=== PATIENT | female | born 1970 | race Caucasian/White ===

== ENCOUNTER 2021-02-07 18:04 | Emergency (ER) | payer OTHER, SELFPAY ==
--- NOTE | 2021-02-07 | ECG_ITS ---
Test Reason : REPEAT Blood Pressure : / mmHG Vent. Rate : 091 BPM Atrial Rate : 091 BPM P-R Int : 150 ms QRS Dur : 086 ms QT Int : 398 ms P-R-T Axes : 073 061 043 degrees QTc Int : 489 ms Normal sinus rhythm Prolonged QT Abnormal ECG When compared with ECG of 07-FEB-2021 19:02, Non-specific change in ST segment in Inferior leads ST no longer elevated in Lateral leads Nonspecific T wave abnormality has replaced inverted T waves in Inferior leads Referred By: Cesar Bill Electronically Signed By:CARMEN ALDRIDGE MD
--- NOTE | ~2021-02-07 | XR_ITS ---
EXAMINATION: XR CHEST CLINICAL INFORMATION: Chest pain COMPARISON: None TECHNIQUE: Frontal view of the chest was obtained. FINDINGS: The heart and pulmonary vessels appear normal. Scarring or atelectasis is present at the right lung base laterally. Linear atelectasis is present at the left lung base. In the posterior basal segment of the left lower lobe there is a patchy density seen with associated obscuration of the left hemidiaphragm which could represent a small focus of pneumonia. No pleural effusions are seen. Degenerative changes are present in the spine. XR/XR chest 1V IMPRESSION: Bibasilar atelectasis and more dense focus of infiltrate in the posterior basal segment left lower lobe.
[2021-02-07 18:19] VITALS: BP 100/50; BP 105/60; PULSE 88; PULSE 89; RESP 17; TEMP 36.4; O2SAT 100; O2SAT 99; BMI 29.5
--- NOTE | 2021-02-07 18:52 | ECG_ITS ---
Test Reason : CP Blood Pressure : / mmHG Vent. Rate : 089 BPM Atrial Rate : 089 BPM P-R Int : 116 ms QRS Dur : 084 ms QT Int : 404 ms P-R-T Axes : 025 026 001 degrees QTc Int : 491 ms Normal sinus rhythm Possible Left atrial enlargement ST & T wave abnormality, consider anterior ischemia Abnormal ECG No previous ECGs available Referred By: Cesar Bill Electronically Signed By:CARMEN ALDRIDGE MD
--- NOTE | 2021-02-07 18:54 | ED_ITS ---
HPI - General Adult General Chief complaint: General Medical Stated complaint: chest and knee pain Time Seen by Provider: 02/07/21 18:52 Source: patient and EMS Mode of arrival: EMS Limitations: no limitations History of Present Illness HPI narrative: 50-year-old female brought in by ambulance for multiple complaint s: Chest pain started since yesterday describes the pain as a tightness in the chest, pain started since yesterday morning, pain is almost constant, no radiation, described as a moderate 6/10, no other associated symptoms with this pain, nothing makes the pain worse or better. Patient also with history of multiple patient was at the rehab but she signed herself against medical advise, patient fell 2 weeks ago and has been complaining of left knee pain patient had an x-ray after the fall which showed no fracture. If you feel has been complaining of nonbloody watery diarrhea and patient had a chronic history of hypokalemia. Related Data Allergies Allergy/AdvReac Type Severity Reaction Status Date / Time cephalexin Allergy Swelling Verified 02/07/21 18:19 ciprofloxacin [From Cipro] Allergy Swelling Verified 02/07/21 18:19 duloxetine [From Cymbalta] Allergy Swelling Verified 02/07/21 18:19 Penicillins Allergy Swelling Verified 02/07/21 18:19 Review of Systems Review of Systems: All other systems are reviewed and are negative Constitutional: Reports as per HPI and Reports no additional constitutional complaints Eyes: Reports as per HPI and Reports no additional eye complaints Reports system reviewed and no additional complaints, except as documented Cardiovascular: Reports as per HPI and Reports no additional cardiovascular complaints Respiratory: Reports as per HPI and Reports no additional respiratory complaints Gastrointestinal: Reports as per HPI and Reports no additional gastrointestinal complaints Genitourinary: Reports no additional female genitourinary complaints Musculoskeletal: Reports no additional musculoskeletal complaints Skin/Breast: Reports system reviewed and no additional complaints, except as do cu Psychiatric: Reports no additional psychiatric complaints Endocrine: Reports no additional endocrine complaints Hematologic/Lymphatic: Reports no additional hematologic/lymphatic complaints Allergic/Immunologic: Reports no additional allergic/immunologic complaints Reports system reviewed and no additional complaints, except as documented and Reports Abnormal speech present PMFSH Past Medical History Medical History Afib Anxiety Arthritis Asthma Bipolar 1 disorder Bronchitis Complications of gastric bypass surgery Hypokalemia Hypotension Migraines PTSD (post-traumatic stress disorder) Surgical History H/O: History of cholecystectomy Social History Social History Alcohol intake: never Smoking Status: Never smoker Use of substances other than those prescribed or required for medical reasons: No Advance Directives: No Advance Directives Information Provided: No Physical Exam Vital Signs: Vital Signs: Last Vital Signs Temp 97.6 F 02/07/21 18:19 Pulse 89 02/07/21 18:19 Resp 17 02/07/21 18:19 BP 100/50 L 02/07/21 18:19 Pulse Ox 100 02/07/21 18:19 Body Mass Index 29.5 Vital signs have been reviewed as appeared to be correct. Blood pressure normal. Heart rate normal. Respiration rate normal. Temperature normal. Oxygen saturation normal. Appearance: Alert. Oriented X3. No acute distress. Head: Normal external exam. Normocephalic. Atraumatic. No Zuleta signs noted. No raccoon eyes noted Eyes: PERRLA. EOMI. Conjunctiva and sclera normal. Eyelids normal. ENT: TM's Normal. Pharynx normal. Uvula midline. Moist mucous membranes. No trismus noted. No drooling noted. No muffled voice noted. Neck: Normal inspection. Neck supple. FROM. No adenopathy. Thyroid Normal. No meningeal signs. No neck mass noted. CVS: Normal heart rate and rhythm. Heart sound normal. No murmurs noted. Pulses normal throughout. Respiratory: No respiratory distress. Painless inspiration. Breath sounds normal. No wheezes/rales/rhonchi noted. Chest nontender. No accessory muscle usage noted or decreased air movement noted. Abdomen: Soft and nontender. Bowel sounds normal in all 4 quadrants. No distention noted. No organomegaly noted. No visible injury noted. Back: No CVA tenderness. Full range of motion noted. Skin: Skin warm and dry. Normal skin color. Normal skin turgor. No rashes/lesions/lacerations noted. Extremities: No lower extremity edema. Extremities exhibit normal range of motion. Extremities nontender. Neuro: Oriented X 3. No motor deficit. No sensory deficit. Reflexes normal. Course Course Course Narrative: Assessment and plan. 50-year-old female came in with atypical chest pain since yesterday greater than 20 hours ago, patient had unremarkable cardiac enzymes, unremarkable labs. Multiple falls due to generalized weakness patient declined going to a rehab place. Chest x-ray read as possible small area of infiltrate in the left lower lung, patient's lung exam is clear, normal white count, patient declined symptoms of fever or coughing. Patient was instructed to follow-up with her PCP to repeat her x-ray. Medical Decision Making Lab Data Lab results reviewed: Yes I reviewed the patient's lab results. Result diagrams: 02/07/21 19:57 02/07/21 19:57 Labs: Lab Results 02/07/21 02/07/21 02/07/21 Range/Units 19:57 19:57 19:57 WBC 9.3 (4.8-10.8) X10*3/uL RBC 3.07 L (4.20-5.50) X10*6/uL Hgb 9.8 L (12.0-16.0) g/dl Hct 30.7 L (37-47) % MCV 100.0 H (80-98) fL MCH 31.9 (27.0-33.0) pg MCHC 31.9 (31.0-35.0) g/dl RDW 15.0 (11.0-16.0) % Plt Count 261 (160-400) X10*3/uL MPV 9.7 (9.4-12.3) fL Immature Gran % (Auto) 0.3 (0.0-0.4) % Neut % (Auto) 56.7 (45-73) % Lymph % (Auto) 34.9 (20-40) % [place] % (Auto) 6.6 (2-11) % Eos % (Auto) 1.3 (0-4) % Baso % (Auto) 0.2 (0-2) % Lymph # (Auto) 3.3 (1.2-4.9) X10*3/uL [place] # (Auto) 0.6 (0.1-1.2) X10*3/uL Eos # (Auto) 0.1 (0.0-0.4) X10*3/uL Baso # (Auto) 0.0 (0.0-0.2) X10*3/uL Abs Immat Gran (auto) 0.03 (0.00-0.03) X10*3/uL Absolute Neuts (auto) 5.3 (2.0-8.3) X10*3/uL Absolute Nucleated RBC 0.000 (0.0-0.012) X10*3/uL Nucleated RBC % (auto) 0.0 (0.0-0.2) /100WBC D-Dimer NG/ML Sodium 140 (135-145) mmol/L Potassium 3.9 (3.3-5.1) mmol/L Chloride 105 (96-108) mmol/L Carbon Dioxide 27 (22-29) mmol/L Anion Gap 12 (12-20) BUN 8 L (9-16) mg/dL Creatinine 0.77 (0.5-1.4) mg/dL Estim Creat Clear Calc 72.3 Estimated GFR > 60 Random Glucose 83 (60-115) mg/dL Calcium 8.2 L (8.4-10.2) mg/dL Total Bilirubin 0.8 (0.0-1.0) mg/dL Direct Bilirubin 0.6 H (0.0-0.5) mg/dL AST 41 H (5-31) U/L ALT 30 (0-31) U/L Alkaline Phosphatase 154 H (39-117) U/L Troponin I High Sens < 3.5 (<3.5-17.0) ng/L B-Natriuretic Peptide (<100) pg/mL Total Protein 5.4 L (6.5-8.0) g/dL Albumin 2.9 L (3.5-5.0) g/dL Lipase 10 (8-78) U/L 02/07/21 02/07/21 Range/Units 19:57 19:57 WBC (4.8-10.8) X10*3/uL RBC (4.20-5.50) X10*6/uL Hgb (12.0-16.0) g/dl Hct (37-47) % MCV (80-98) fL MCH (27.0-33.0) pg MCHC (31.0-35.0) g/dl RDW (11.0-16.0) % Plt Count (160-400) X10*3/uL MPV (9.4-12.3) fL Immature Gran % (Auto) (0.0-0.4) % Neut % (Auto) (45-73) % Lymph % (Auto) (20-40) % [place] % (Auto) (2-11) % Eos % (Auto) (0-4) % Baso % (Auto) (0-2) % Lymph # (Auto) (1.2-4.9) X10*3/uL [place] # (Auto) (0.1-1.2) X10*3/uL Eos # (Auto) (0.0-0.4) X10*3/uL Baso # (Auto) (0.0-0.2) X10*3/uL Abs Immat Gran (auto) (0.00-0.03) X10*3/uL Absolute Neuts (auto) (2.0-8.3) X10*3/uL Absolute Nucleated RBC (0.0-0.012) X10*3/uL Nucleated RBC % (auto) (0.0-0.2) /100WBC D-Dimer 239 NG/ML Sodium (135-145) mmol/L Potassium (3.3-5.1) mmol/L Chloride (96-108) mmol/L Carbon Dioxide (22-29) mmol/L Anion Gap (12-20) BUN (9-16) mg/dL Creatinine (0.5-1.4) mg/dL Estim Creat Clear Calc Estimated GFR Random Glucose (60-115) mg/dL Calcium (8.4-10.2) mg/dL Total Bilirubin (0.0-1.0) mg/dL Direct Bilirubin (0.0-0.5) mg/dL AST (5-31) U/L ALT (0-31) U/L Alkaline Phosphatase (39-117) U/L Troponin I High Sens (<3.5-17.0) ng/L B-Natriuretic Peptide 51 (<100) pg/mL Total Protein (6.5-8.0) g/dL Albumin (3.5-5.0) g/dL Lipase (8-78) U/L Imaging Data Chest x-ray: Radiologist's impression: The heart and pulmonary vessels appear normal. Scarring or atelectasis is present at the right lung base laterally. Linear atelectasis is present at the left lung base. In the posterior basal segment of the left lower lobe there is a patchy density seen with associated obscuration of the left hemidiaphragm which could represent a small focus of pneumonia. No pleural effusions are seen. Degenerative changes are present in the spine. ECG Data Interpretation: Normal sinus rhythm at 91 beats per minutes, normal axis deviation, normal intervals. Discharge Plan Discharge Clinical Impression: Chest pain Qualifiers: Chest pain type: unspecified Qualified Code(s): R07.9 - Chest pain, unspecified Patient Disposition: Home, Self-Care Instructions: Chest Pain (ED) Additional Instructions: Follow-up with your doctor at some point repeat chest x-ray as we discussed. Referrals: Physician,Unknown [Primary Care Provider] - 2 days
[2021-02-07] MEDS: traMADoL HCL 50 MG TABLET PO (20:02)
[2021-02-07 20:03] LABS: Basophils Percent Auto 0.2 % (0-2); Eosinophils Absolute Auto 0.1 X10*3/uL (0.0-0.4); Eosinophils Percent Auto 1.3 % (0-4); Hematocrit 30.7 % (37-47); Hemoglobin 9.8 g/dl (12.0-16.0); Imm Gran Abs Auto 0.03 X10*3/uL (0.00-0.03); Imm Gran Pct Auto 0.3 % (0.0-0.4); Lymphocytes Absolute Auto 3.3 X10*3/uL (1.2-4.9); Lymphocytes Percent Auto 34.9 % (20-40); MANUAL DIFF FLAG NO; Mean Corpuscular HGB Conc 31.9 g/dl (31.0-35.0); Mean Corpuscular Hemoglobin 31.9 pg (27.0-33.0); Mean Platelet Volume 9.7 fL (9.4-12.3); Monocytes Absolute Auto 0.6 X10*3/uL (0.1-1.2); Monocytes Percent Auto 6.6 % (2-11); Neutrophils Absolute Auto 5.3 X10*3/uL (2.0-8.3); Neutrophils Percent Auto 56.7 % (45-73); Platelet Count 261 X10*3/uL (160-400); Red Blood Count 3.07 X10*6/uL (4.20-5.50); White Blood Count 9.3 X10*3/uL (4.8-10.8)
[2021-02-07 20:14] LABS: D Dimer 239 NG/ML
[2021-02-07 20:29] LABS: Alanine Aminotransferase 30 U/L (0-31); Albumin Level 2.9 g/dL (3.5-5.0); Alkaline Phosphatase 154 U/L (39-117); Anion Gap 12 (12-20); Aspartate Amino Transferase 41 U/L (5-31); Bilirubin Direct 0.6 mg/dL (0.0-0.5); Bilirubin Total 0.8 mg/dL (0.0-1.0); Blood Urea Nitrogen 8 mg/dL (9-16); Calcium 8.2 mg/dL (8.4-10.2); Carbon Dioxide 27 mmol/L (22-29); Chloride 105 mmol/L (96-108); Creatinine Clr Calc Pharmacy 72.3; Estimated Glomerular Filt Rate > 60; Glucose Random 83 mg/dL (60-115); Lipase 10 U/L (8-78); Potassium 3.9 mmol/L (3.3-5.1); Sodium 140 mmol/L (135-145); Total Protein 5.4 g/dL (6.5-8.0)
[2021-02-07 20:36] LABS: Troponin-I High Sensitivity < 3.5 ng/L (<3.5-17.0)
[2021-02-07 20:37] LABS: B Type Natriuretic Peptide 51 pg/mL (<100)
--- NOTE | 2021-02-07 22:17 | PC.NURSE ---
Upon discharge, patient requesting CHRISTOPHER Kessler, states I can't walk. I'm supposed to get help at home, but I haven't gotten a motorized wheelchair yet. I fall practically every day of the year . 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 Pt states yeah I know, my insurance will pay for it though .
== END 2021-02-07 23:41 | disposition home or self-care (01) ==
PROVIDERS: Emergency Provider Emergency Medicine
DX: R07.9 Chest pain, unspecified (principal); M25.562 Pain in left knee; M25.561 Pain in right knee; Z79.899 Other long term (current) drug therapy
CPT/HCPCS: 36415; 71045; 80048; 80076; 83690; 83880; 84484; 85025; 85379; 93005; 99283; 99284

== ENCOUNTER 2022-10-10 09:44 | Emergency (ER) | payer OTHER, SELFPAY ==
[2022-10-10] VITALS (7 sets, daily range): BP systolic 88–112; BP diastolic 55–66; PULSE 72–94; RESP 11–18; TEMP 36.5–36.9; O2SAT 98–99
--- NOTE | ~2022-10-10 | XR_ITS ---
EXAMINATION: XR CHEST CLINICAL INFORMATION: Chest pain COMPARISON: 02/07/2021 TECHNIQUE: Frontal view of the chest was obtained. FINDINGS: There is scarring and atelectasis in the left lower lung with no change. Lungs otherwise are considered clear. Heart and pulmonary vessels are normal. No congestive change. XR/XR chest 1V IMPRESSION: No active disease.
--- NOTE | 2022-10-10 09:53 | ECG_ITS ---
Test Reason : CHEST PAIN Blood Pressure : / mmHG Vent. Rate : 082 BPM Atrial Rate : 082 BPM P-R Int : 152 ms QRS Dur : 074 ms QT Int : 392 ms P-R-T Axes : 059 044 038 degrees QTc Int : 457 ms Sinus rhythm with Premature atrial complexes Low voltage QRS Nonspecific ST abnormality Abnormal ECG When compared with ECG of 07-FEB-2021 19:46, Premature atrial complexes are now Present Nonspecific T wave abnormality has replaced inverted T waves in Anterior leads Referred By: Generic ED Physician Electronically Signed By:KANG PEREZ MD
--- OUTSIDE RECORDS SUMMARY | 2022-10-10 10:10 | XMS_ITS | Continuity of Care Document ---
:1970 Author Organization [facility] Address [address] [place] [address]- Care Team Providers Name Role Phone Eusebio Payton DO Primary Care Physician Encounter [facility] Date(s): 12/28/20 - 01/27/21 [facility] [address] [place] [address]- Attending Physician: Héctor Alfaro Admitting Physician: AdmtrHéctor Referring Physician: Admtr, Ar8 Allergies, Adverse Reactions, Alerts Substance Reaction Severity Status ciprofloxacin Active penicillin swell up can't swallow Active Keflex full body swelling hives Active Latex rash all over Active Other Food Allergy swell up Active coconut oil Cymbalta lips and face swell Active Medications albuterol-ipratropium 3 mg-0.5 mg/3 ml inhalation solution 3 mL, Inhalation, 4 times a day, # 360 mL, 11 Refills, Maintenance, 10/18/18 11:45:00 EST, Solution,ICD Code J45.20, 3 mL Inhalation 4 times a day Start Date: 10/18/18 Status: Orderedchantix 0.5mg tablet 1 tablet = 0.5 mg, By Mouth, 2 times a day, # 56 tablet, 0 Refills, Maintenance, 02/04/20 23:18:00 EDT, Tablet Start Date: 02/04/20 Status: OrderedclonazePAM 1 mg oral tablet TAKE 1 TABLET BY MOUTH THREE TIMES A DAY NEEDED Start Date: 06/07/19 Status: OrderedDulera 200 mcg-5 mcg/inh inhalation aerosol See Instructions, # 13 Unknown, Refills 1 Tot. Refills 1, INHALE 2 PUFFS BY MOUTH TWICE A DAY, [facility]/pharmacy #[id number] Start Date: 08/16/19 Status: OrderedhydrOXYzine pamoate 50 mg oral capsule TAKE 1 CAPSULE BY MOUTH TWICE A DAY Start Date: 06/07/19 Status: Orderedlamotrigine 150 mg oral tablet 1 tablet = 150 mg, By Mouth, 2 times a day, # 60 tablet, 0 Refills, Maintenance, 10/18/20 3:14:00 EST, Tablet, Partial fill upon patient request Start Date: 10/18/20 Status: OrderedLasix 20 mg oral tablet 20 mg, 1, tablet, By Mouth, Daily, # 7 tablet, Refills 0, Tot. Refills 0, Maintenance, 10/22/20 13:11:00 EST, Route to Pharmacy Electronically, [facility]/pharmacy #[id number], Partial fill upon patient request, 150, cm, 10/22/20 9:53:00 EST, Height, 82.4, kg, 11/... Start Date: 10/22/20 Stop Date: 10/29/20 Status: OrderedLexapro 20 mg oral tablet 1 tablet = 20 mg, By Mouth, Daily, # 30 tablet, 0 Refills, Maintenance, 04/16/20 0:52:00 EDT, Tablet Start Date: 04/16/20 Status: Orderedpotassium chloride 20 mEq oral tablet, extended release 1 tablet = 20 mEq, By Mouth, 2 times a day, # 14 tablet, 0 Refills, Maintenance, 12/01/20 5:34:00 EST, ER Tablet, [facility]/pharmacy #[id number], Partial fill upon patient request if the prescription is for a schedule II opioid drug., 173, cm, 12/01/20 3:52:00 ES... Start Date: 12/01/20 Stop Date: 12/08/20 Status: OrderedProAir HFA 90 mcg/inh inhalation aerosol with adapter 180 mcg, 2, puffs, Inhalation, 4 times a day, PRN, # 1 each, Refills 11, Tot. Refills 11, Maintenance, 04/09/18 16:09:00 EDT, Inhaler, Route to Pharmacy Electronically, [id number], [facility]/pharmacy #[id number], ICD Code J45.20 Start Date: 04/09/18 Status: OrderedSEROquel 200 mg oral tablet 200 mg, 1, tablet, By Mouth, 2 times a day, # 60 tablet, Refills 5, Tot. Refills 5, Maintenance, 12/29/17 15:09:37, Route to Pharmacy Electronically, [id number][id number] Start Date: 12/29/17 Stop Date: 06/27/18 Status: Orderedspironolactone 25 mg oral tablet 12.5 mg, 0.5, tablet, By Mouth, Daily, # 10 tablet, Refills 0, Tot. Refills 0, Maintenance, 216:54:00 EST, [id number] Partial fill upon patient requestif the prescription is for a schedule II opioid d... Start Date: 12/15/20 Status: Orderedtopiramate 50 mg oral tablet See Instructions, TAKE 1.5 TABLET BY MOUTH EVERYDAY AT BEDTIME, # 45 tablet, 6 Refills, 05/08/20 15:55:00 EDT, [facility], 152, cm, 04/16/20 5:09:00 EDT, Height, 100, kg, 04/16/20 5:09:00 EDT, Dry Weight Start Date: 05/08/20 Status: Ordered Problem List Condition Effective Dates Status Health Status Informant Asthma(Confirmed) Active Asthma with COPD(Confirmed) Active Depression(Confirmed) Active Fibromyalgia(Confirmed) Active GERD (gastroesophageal reflux Active disease)(Confirmed) PTSD (post-traumatic stress Active disorder)(Confirmed) Self mutilating behavior(Confirmed) Active Sleep apnea(Confirmed) Active Social History Social History Type Response Smoking Status Former smoker, quit more delmar n 30 days ago entered on: 10/01/20 Sex
--- OUTSIDE RECORDS SUMMARY | 2022-10-10 10:10 | XMS_ITS | Continuity of Care Document ---
:1970 Author Organization [facility] Address [address] [place] [address], 3rd Floor, [address] [place] [phone]- Care Team Providers Name Role Phone Eusebio Payton DO Primary Care Physician Encounter [facility] Date(s): 09/09/22 - 10/09/22 [facility] [address] [place], 3rd Floor, [address] [place] [id number] Allergies, Adverse Reactions, Alerts Substance Reaction Severity Status ciprofloxacin Active penicillin swell up can't swallow Active Keflex full body swelling hives Active Bee Stings Active Coconut Oil1 Active Latex rash all over Active Cymbalta lips and face swell Active 1pt reports her lips swelled after using coconut oil on them Immunizations Given and Recorded Vaccine Date Status Refusal Reason SARS-CoV-2 (COVID-19) mRNA-1273 vaccine 05/23/22 Recorded SARS-CoV-2 (COVID-19) mRNA-1273 vaccine 12/07/21 Recorded SARS-CoV-2 (COVID-19) mRNA-1273 vaccine 05/14/21 Recorded SARS-CoV-2 (COVID-19) mRNA-1273 vaccine 04/16/21 Recorded tetanus/diphtheria/pertussis, acel(Tdap) 09/26/09 Recorde d pneumococcal 23-valent vaccine 08/04/05 Recorded tetanus-diphtheria toxoids (Td) 06/13/04 Recorded hepatitis B adult vaccine 06/13/04 Recorded Medications atropine-diphenoxylate 0.025 mg-2.5 mg oral tablet 1, tablet, By Mouth, 4 times a day Start Date: 04/21/22 Status: Orderedcholestyramine 4 gm/9 gm oral powder for reconstitution 1 pack/packet, By Mouth, 3 times a day, # 90 each, 0 Refills, Maintenance, 09/27/22 12:42:00 EDT, REC Powder, Partial fill upon patient request if the prescription is for a schedule II opioid drug. Start Date: 09/27/22 Status: OrderedclonazePAM 1 mg oral tablet 1 tablet = 1 mg, By Mouth, 3 times a day, # 9 tablet, 0 Refills, Maintenance, 10/02/22 11:44:00 EST,Tablet, Partial fill upon patient request if the prescription is for a schedule II opioid drug. Start Date: 10/02/22 Stop Date: 10/05/22 Status: OrderedFluoxetine = 20 mg, By Mouth, Daily, 0 Refills, Maintenance, 05/04/21 17:40:00 EDT, Partial fill upon patient request if the prescription is for a schedule II opioid drug. Start Date: 05/04/21 Status: Orderedfluticasone 50 mcg/inh nasal spray SPRAY 1 SPRAY INTO EACH NOSTRIL EVERY DAY Start Date: 04/21/22 Status: Orderedlamotrigine 150 mg oral tablet 1 tablet = 150 mg, By Mouth, 2 times a day, # 60 tablet, 0 Refills, Maintenance, 10/18/20 3:14:00 EST, Tablet, Partial fill upon patient request Start Date: 10/18/20 Status: Orderedloperamide 2 mg oral capsule 2 mg, 1, capsule, By Mouth, Every 4 hours, PRN, # 60 capsule, Refills 0, Maintenance, for loose stool, 09/27/22 12:12:00 EDT, Partial fill upon patient request if the prescription is for a schedule II opioid drug. Start Date: 09/27/22 Status: Orderedmidodrine 5 mg oral tablet 5 mg, 1, tablet, By Mouth, 3 times a day, Refills 0, Maintenance, 09/27/22 12:12:00 EDT, Partial fill upon patient request if the prescription is for a schedule II opioid drug. Start Date: 09/27/22 Status: Orderedolanzapine 5 mg oral tablet TAKE 1/2-1 TABLET BY MOUTH ONCE DAILY AT BEDTIME NEEDED Start Date: 04/21/22 Status: Orderedomeprazole 40 mg oral enteric coated capsule 1 capsule = 40 mg, By Mouth, Daily, # 30 capsule, 0 Refills, Maintenance, 09/27/22 12:12:00 EDT, EC Capsule, Partial fill upon patient request if the prescription is for a schedule II opioid drug. Start Date: 09/27/22 Status: Orderedondansetron 4 mg oral tablet 1 tablet = 4 mg, By Mouth, Every 8 hours, PRN Nausea, . Start Date: 04/21/22 Status: OrderedProAir HFA 90 mcg/inh inhalation aerosol with adapter 180 mcg, 2, puffs, Inhalation, 4 times a day, PRN, # 1 each, Refills 11, Tot. Refills 11, Maintenance, 04/09/18 16:09:00 EDT, Inhaler, Route to Pharmacy Electronically, [id number], [facility]/pharmacy #[id number], ICD Code J45.20 Start Date: 04/09/18 Status: OrderedProbiotic Formula (Bacillus Coagulans) oral capsule 1 capsule, By Mouth, Daily, # 30 capsule, 0 Refills, Maintenance, 09/27/22 12:45:00 EDT, Capsule, Partial fill upon patient request if the prescription is for a schedule II opioid drug. Start Date: 09/27/22 Status: OrderedrisperiDONE 2 mg oral tablet TAKE 1/2 TABLET BY MOUTH EVERY MORNING AND 1 TABLET AT BEDTIME Start Date: 09/27/22 Status: Orderedsucralfate 1 gm/10 ml oral suspension 10 mL = 1 Gm, By Mouth, 4 times a day, 0 Refills, Maintenance, 09/27/22 12:48:00 EDT, Partial fill upon patient request if the prescription is for a schedule II opioid drug. Start Date: 09/27/22 Status: Orderedthiamine 100 mg oral tablet 100 mg, 1, tablet, By Mouth, Daily, Refills 0, Maintenance, 05/02/22 11:01:00 EDT, Partial fill uponpatient request if the prescription is for a schedule II opioid drug. Start Date: 05/02/22 Status: Orderedtopiramate 50 mg oral tablet See Instructions, Take 1/2 tablet in the AM and 2 1/2 tablet at bedtime, # 90 tablet, 11 Refills, 06/12/22 13:04:00 EDT, [facility]/pharmacy #[id number], please refill early, 154, cm, 04/21/22 10:23:00 EDT, Height,58, kg, 04/21/22 10:23:00 EDT, Dry Weight Start Date: 06/12/22 Status: OrderedVitamin B12 500 mcg oral tablet 1 tablet = 500 mcg, By Mouth, Daily, # 30 tablet, 0 Refills, Maintenance, 09/27/22 12:45:00 EDT, Tablet, Partial fill upon patient request if the prescription is for a schedule II opioid drug. Start Date: 09/27/22 Status: OrderedVitamin C 250 mg oral tablet 1 tablet = 250 mg, By Mouth, Daily, 0 Refills, Maintenance, 05/03/21 16:57:00 EDT, Partial fill uponpatient request if the prescription is for a schedule II opioid drug. Start Date: 05/03/21 Status: OrderedVitamin D3 50,000 intl units oral capsule 1 capsule = 1,250 mcg, By Mouth, Every Thursday Start Date: 04/21/22 Status: OrderedWixela Inhub 500 mcg-50 mcg inhalation powder 1 inhalation, Inhalation, 2 times a day, rinse mouth and throat after use, 0 Refills, Maintenance, 04/21/22 18:19:00 EDT, Powder, Partial fill upon patient request if the prescription is for a scheduleII opioid drug. Start Date: 04/21/22 Status: OrderedXarelto 20 mg oral tablet 1 tablet = 20 mg, By Mouth, Daily in PM, # 30 tablet, 0 Refills, Maintenance, 09/27/22 12:12:00 EDT,Tablet, Partial fill upon patient request if the prescription is for a schedule II opioid drug. Start Date: 09/27/22 Status: Ordered Problem List Condition Confirmation Course Effective Dates Status Health Stat us Informant Asthma Confirmed Active Asthma with COPD Confirmed Active Depression Confirmed Active Fibromyalgia Confirmed Active GERD Confirmed Active (gastroesophageal reflux disease) PTSD Confirmed Active (post-traumatic stress disorder) Self mutilating Confirmed Active behavior Sleep apnea Confirmed Active Social History Social History Type Response Smoking Status Former smoker, quit more delmar n 30 days ago entered on: 10/01/20 Sex Patient Care team information Care Team PersonnelName: Elif Roldan RN Position: [facility] RN Member Role: Primary Care Nurse Name: Jean-Claude Horvath Position: [facility] [place]io[place]m [place] Member Role: Primary Care Nurse Name: Madison Calderon RN Position: [facility] RN Member Role: Primary Care Nurse Name: Suly Galvan RN Position: [facility] RN Member Role: Primary Care Nurse Name: Kassi Sosa Position: [facility] RN Member Role: Primary Care Nurse Name: Bindu Loja Position: [facility] RN Member Role: Primary Care Nurse Name: Radha Baptiste RN Position: [facility] RN Member Role: Primary Care Nurse Name: Kilo Olmos RN Position: [facility] RN Member Role: Primary Care Nurse Name: Cristina Randle RN Position: [facility] RN Member Role: Primary Care Nurse Name: Eusebio Payton DO Position: [facility] Physician (General Medicine) Member Role: PCP Address: Address: [address] [place] [address] [address] [place], [place] [address] Name: Nilda Jimenez RN Position: [facility] RN Member Role: Primary Care Nurse Name: Awa Langford RN Position: [facility] RN Member Role: Primary Care Nurse Name: Sharmaine Goodwin RN Position: [facility] RN Member Role: Primary Care Nurse Care Team Related PersonsName: RAMONA FLORES Address: home [address] [place] [address] Name: MONICA FLORES Address: home [address] [place] [address] Name: MYRIAM FLORES Address: home [address] [place] [address] Name: ELSIE FLORES Address: home [place], [place] Name: JUNI FLORES Address: home [address] [place] [address]
--- OUTSIDE RECORDS SUMMARY | 2022-10-10 10:11 | XMS_ITS | Continuity of Care Document ---
:1970 Author Organization [facility] Address [address] [place], 3rd Floor, [address] [place] [address]- Care Team Providers Name Role Phone Eusebio Payton DO Primary Care Physician Encounter [facility] Date(s): 05/11/20 - 09/08/20 [facility] [address] [place], [address] Floor, [address] [place] [address]- [facility] Attending Physician: Torito Villagomez MD Referring Physician: Eusebio Payton DO Allergies, Adverse Reactions, Alerts Substance Reaction Severity [...] DAY NEEDED Start Date: 06/07/19 Status: OrderedDulera Inhalation, 2 times a day, 0 Refills, Maintenance, 04/16/20 0:51:00 EDT Start Date: 04/16/20 Status: OrderedDulera 200 mcg-5 mcg/inh inhalation aerosol See Instructions, # 13 Unknown, Refills 1 Tot. Refills 1, INHALE 2 PUFFS BY MOUTH TWICE A DAY, [facility]/pharmacy #[id number] Start Date: 08/16/19 Status: OrderedFlovent Diskus Inhalation, 2 times a day, 0 Refills, Maintenance, 04/16/20 0:51:00 EDT Start Date: 04/16/20 Status: OrderedhydrOXYzine pamoate 50 mg oral capsule TAKE 1 CAPSULE BY MOUTH TWICE A DAY Start Date: 06/07/19 Status: Orderedlamotrigine 50 mg oral tablet, disintegrating 1 tablet = 50 mg, By Mouth, 2 times a day, 0 Refills, Maintenance, 06/26/19 17:18:38 EDT Start Date: 06/26/19 Status: OrderedLexapro 20 mg oral tablet 1 tablet = 20 mg, By Mouth, Daily, # 30 tablet, 0 Refills, Maintenance, 04/16/20 0:52:00 EDT, Tablet Start Date: 04/16/20 Status: Orderednaltrexone 50 mg oral tablet 0 Refills, Maintenance, 01/19/20 14:01:00 EST Start Date: 01/19/20 Status: OrderedOmeprazole By Mouth, Daily, 0 Refills, Maintenance, 04/16/20 0:52:00 EDT Start Date: 04/16/20 Status: OrderedProAir HFA 90 mcg/inh inhalation aerosol with adapter 180 mcg, 2, puffs, Inhalation, 4 times a day, PRN, # 1 each, Refills 11, Tot. Refills 11, Maintenance, 04/09/18 16:09:00 EDT, Inhaler, Route to Pharmacy Electronically, [id number], [facility]/pharmacy #[id number], ICD Code J45.20 Start Date: 04/09/18 Status: OrderedSEROquel 200 mg oral tablet 200 mg, 1, tablet, By Mouth, 2 times a day, # 60 tablet, Refills 5, Tot. Refills 5, Maintenance, 12/29/17 15:09:37, Route to Pharmacy Electronically, [id number], [facility]/pharmacy #[id number] Start Date: 12/29/17 Stop Date: 06/27/18 Status: Orderedsertraline 100 mg oral tablet 1 tablet = 100 mg, By Mouth, Daily, # 30 tablet, 0 Refills, Maintenance, 06/26/19 17:17:27 EDT, Tablet Start Date: 06/26/19 Status: Orderedtopiramate 50 mg oral tablet See Instructions, TAKE 1.5 TABLET BY MOUTH EVERYDAY AT BEDTIME, # 45 tablet, 6 Refills, 05/08/20 15:55:00 EDT, [facility], 152, cm, 04/16/20 5:09:00 EDT, Height, [...] delmar n 30 days ago entered on: 05/14/20 Sex
--- OUTSIDE RECORDS SUMMARY | 2022-10-10 10:11 | XMS_ITS | Continuity of Care Document ---
:1970 Author Organization [facility] Address [address] [place] [address]- Care Team Providers Name Role Phone Eusebio Payton DO Primary Care Physician Encounter [facility] Date(s): 12/23/20 - 12/27/[address] [address]- Discharge Disposition: A-D/C Home Attending Physician: Kali Bynum DO Admitting Physician: Jose Alberto Stevens DO Referring Physician: Janet Solomon MD Allergies, Adverse Reactions, Alerts Substance Reaction Severity [...] 2 PUFFS BY MOUTH TWICE A DAY, [facility]/pharmacy #[id number] Start Date: 08/16/19 Status: OrderedhydrOXYzine pamoate 50 [...] 10/22/20 13:11:00 EST, Route to Pharmacy Electronically, [facility]/pharmacy #[id number], Partial fill upon patient request, 150, cm, 10/22/20 9:53:00 EST, Height, 82.4, kg, ... Start Date: 10/22/20 Stop Date: 10/29/20 Status: [...] Refills, Maintenance, 12/01/20 5:34:00 EST, ER Tablet, [facility]/pharmacy #[id number], Partial fill upon patient request if the prescription is for a schedule II opioid drug., 173, cm, 12/01/20 3:52:00 ES... Start Date: 12/01/20 Stop Date: 12/08/20 Status: OrderedProAir HFA 90 mcg/inh inhalation aerosol with adapter 180 mcg, 2, puffs, Inhalation, 4 times a day, PRN, # 1 each, Refills 11, Tot. Refills 11, Maintenance, 04/09/18 16:09:00 EDT, Inhaler, Route to Pharmacy Electronically, [id number], [facility]/pharmacy #[id number], ICD Code J45.20 Start Date: 04/09/18 Status: OrderedSEROquel 200 mg oral tablet 200 mg, 1, tablet, By Mouth, 2 times a day, # 60 tablet, Refills 5, Tot. Refills 5, Maintenance, 12/29/17 15:09:37, Route to Pharmacy Electronically, [id number], [facility]/pharmacy #[id number] Start Date: 12/29/17 Stop Date: 06/27/18 Status: Orderedspironolactone 25 mg oral tablet 12.5 mg, 0.5, tablet, By Mouth, Daily, # 10 tablet, Refills 0, Tot. Refills 0, Maintenance, 216:54:00 EST, [id number] Partial fill upon patient requestif the prescription is for a schedule II opioid d... Start Date: 12/15/20 Status: Orderedtopiramate 50 mg oral tablet See Instructions, TAKE 1.5 TABLET BY MOUTH EVERYDAY AT BEDTIME, # 45 tablet, 6 Refills, 05/08/20 15:55:00 EDT, [facility], 152, cm, 04/16/20 5:09:00 EDT, Height, 100, kg, 04/16/20 5:09:00 EDT, Dry Weight Start Date: 05/08/20 Status: Ordered Problem List Condition Effective Dates Status Health Status Informant Asthma(Confirmed) Active Asthma with COPD(Confirmed) Active Depression(Confirmed) Active Fibromyalgia(Confirmed) Active GERD (gastroesophageal reflux Active disease)(Confirmed) PTSD (post-traumatic stress Active disorder)(Confirmed) Self mutilating behavior(Confirmed) Active Sleep apnea(Confirmed) Active Vital Signs Most recent to oldest 1 2 3 [Reference Range]: Height 151 cm 151 cm 151 cm (12/27/20 10:51 AM) (12/27/20 5:13 AM) (12/26/20 8:42 PM) Weight 75.2 kg 80 kg 80 kg (12/24/20 12:18 AM) (12/23/20 11:04 PM) (12/23/20 8: 26 PM) Oxygen Saturation [94-100 %] 98 % 95 % 98 % (12/27/20 10:51 AM) (12/27/20 5:13 AM) (12/26/20 8:42 PM) Pulse Rate [55-90 bpm] 101 bpm 87 bpm 91 bpm *H* (12/27/20 5:13 AM) *H* (12/27/20 10:51 AM) (12/26/20 8:42 P M) Body Mass Index [18.5-24.99] 32.98 35.09 35. 09 *>HHI* *>HHI* *>HHI* (12/24/20 12:18 AM) (12/23/20 11:04 PM) (12/23/20 8: 26 PM) Blood Pressure [90-138/55-84 105/69 mm Hg 108/74 mm Hg 106 /73 mm Hg mm Hg] (12/27/20 10:51 AM) (12/27/20 5:13 AM) (12/26/20 8:42 PM) Respiratory Rate [16-30 18 br/min 22 br/min 20 br/mi n br/min] (12/27/20 10:51 AM) (12/27/20 5:13 AM) (12/26/20 8:42 PM) Temperature [96.8-100.4 DegF] 97.7 DegF 98.5 DegF 98 .0 DegF (12/27/20 10:51 AM) (12/27/20 5:13 AM) (12/26/20 8:42 PM) Mode of Delivery (Oxygen) Room air Room air Room a ir (12/27/20 10:51 AM) (12/27/20 5:13 AM) (12/26/20 8:42 PM) Blood pressure sites Arm, right Arm, right Arm, right (12/27/20 10:51 AM) (12/27/20 5:13 AM) (12/26/20 8:42 PM) Temperature Route Oral Oral Oral (12/27/20 10:51 AM) (12/27/20 5:13 AM) (12/26/20 8:42 PM) Dry Weight 75.2 kg 80 kg 80 kg (12/24/20 12:18 AM) (12/23/20 11:04 PM) (12/23/20 8: 26 PM) Weight Obtained Via Bed scale (12/24/20 12:18 AM) Dry Weight Obtained Via Bed scale (12/24/20 12:18 AM) Social History Social History Type Response Smoking Status Former smoker, quit more delmar n 30 days ago entered on: 10/01/20 Sex
--- OUTSIDE RECORDS SUMMARY | 2022-10-10 10:11 | XMS_ITS | Continuity of Care Document ---
:1970 Author Organization [facility] Address [address] [place] [address], 3[address] Floor, [address] [place] [id number]- Care Team Providers Name Role Phone Eusebio Payton DO Primary Care Physician Encounter [facility] Date(s): 09/09/22 - 10/09/22 [facility] [address], 3rd Floor, [address] [place] [address] Allergies, Adverse Reactions, Alerts Substance Reaction Severity Status ciprofloxacin Active penicillin swell up can't swallow Active Keflex full body swelling hives Active Bee Stings Active Coconut Oil1 Active Cymbalta lips and face swell Active Latex rash all over Active 1pt reports her lips swelled after [...] 16:09:00 EDT, Inhaler, Route to Pharmacy Electronically, [id number], [facility]/pharmacy #[id number], ICD Code J45.20 Start Date: 04/09/18 [...] 90 tablet, 11 Refills, 06/12/22 13:04:00 EDT, [facility]/pharmacy #[id number], please refill early, 154, cm, 04/21/22 [...] Care Team PersonnelName: Elif Roldan RN Position: [facility] RN Member Role: Primary Care Nurse Name: Jean-Claude Horvath Position: [facility] Cardio/Pulm Mgr ([facility]) Member Role: Primary Care Nurse Name: Madison Calderon RN Position: [facility] RN Member Role: Primary Care Nurse Name: Suly Galvan RN Position: [facility] RN Member Role: Primary Care Nurse Name: Kassi Sosa Position: [facility] RN Member Role: Primary Care Nurse Name: Bindu Loja Position: [facility] RN Member Role: Primary Care Nurse Name: Radha Baptiste RN Position: [facility] RN Member Role: Primary Care Nurse Name: Kilo Olmos RN Position: [facility] RN Member Role: Primary Care Nurse Name: Cristina Randle RN Position: [facility] RN Member Role: Primary Care Nurse Name: Eusebio Payton DO Position: [facility] Physician (General Medicine) Member Role: PCP Address: Address: [address] [place] [address] [address] [place], [place] [address] Name: Nilda Jimenez RN Position: [facility] RN Member Role: Primary Care Nurse Name: Awa Langford RN Position: [facility] RN Member Role: Primary Care Nurse Name: Sharmaine Goodwin RN Position: [facility] RN Member Role: Primary Care Nurse Care Team Related PersonsName: RAMONA FLORES Address: home [address] [place] [address] Name: MONICA FLORES Address: home [address] [place] [address] Name: MYRIAM FLORES Address: home [address] [place] [address] Name: ELSIE FLORES Address: home [place], [place] Name: JUNI FLORES Address: home [address] [place] [address]
--- OUTSIDE RECORDS SUMMARY | 2022-10-10 10:11 | XMS_ITS | Continuity of Care Document ---
:1970 Author Organization [facility] Address [address] [facility], 3rd Floor, [address] [place] [id number]- Care Team Providers Name Role Phone Eusebio Payton DO Primary Care Physician Encounter [facility] Date(s): 08/09/20 - 09/08/20 [facility] [address] [place], [address] Floor, [address] [place] [id number] [facility] Attending Physician: Héctor Alfaro Admitting Physician: AdmtrHéctor Referring Physician: Admtr, Ar8 Allergies, Adverse Reactions, Alerts Substance Reaction Severity Status ciprofloxacin Active penicillin swell up can't swallow Active Keflex full body swelling hives Active Latex rash all over Active Cymbalta lips and face swell Active Other Food Allergy swell up Active coconut oil Medications albuterol-ipratropium 3 mg-0.5 mg/3 ml inhalation [...] MOUTH TWICE A DAY, [facility]/pharmacy #[id number] Start Date: 08/16/19 Status: OrderedFlovent Diskus [...] 16:09:00 EDT, Inhaler, Route to Pharmacy Electronically, [id number], [facility]/pharmacy #[id number], ICD Code J45.20 Start Date: 04/09/18 Status: OrderedSEROquel 200 mg oral tablet 200 mg, 1, tablet, By Mouth, 2 times a day, # 60 tablet, Refills 5, Tot. Refills 5, Maintenance, 12/29/17 15:09:37, Route to Pharmacy Electronically, [id number], [facility]/pharmacy #[id number] Start Date: 12/29/17 Stop Date: 06/27/18 Status: Orderedsertraline 100 mg oral tablet 1 tablet = 100 mg, By Mouth, Daily, # 30 tablet, 0 Refills, Maintenance, 06/26/19 17:17:27 EDT, Tablet Start Date: 06/26/19 Status: Orderedtopiramate 50 mg oral tablet See Instructions, TAKE 1.5 TABLET BY MOUTH EVERYDAY AT BEDTIME, # 45 tablet, 6 Refills, 05/08/20 15:55:00 EDT, [facility], 152, cm, 04/16/20 5:09:00 EDT, Height, [...]
--- OUTSIDE RECORDS SUMMARY | 2022-10-10 10:11 | XMS_ITS | Continuity of Care Document ---
:1970 Author Organization [facility] Address [address] [place] [phone]- Care Team Providers Name Role Phone Eusebio Payton DO Primary Care Physician [place] [facility] [place] 05/02/[address] [address] Discharge Disposition: A-Transfer SNF Attending Physician: Cait Danielson MD Admitting Physician: Cristine Rincon MD Referring Physician: Not on Staff, Referring MD Allergies, Adverse Reactions, Alerts Substance Reaction Severity Status ciprofloxacin Active penicillin swell up can't swallow Active Keflex full body swelling hives Active Latex rash all over Active Other Food Allergy swell up Active coconut oil Cymbalta lips and face swell Active Immunizations Given and Recorded Vaccine Date Status Refusal Reason SARS-CoV-2 (COVID-19) mRNA-1273 vaccine 12/07/21 Recorded SARS-CoV-2 (COVID-19) mRNA-1273 vaccine 05/14/21 Recorded SARS-CoV-2 (COVID-19) mRNA-1273 vaccine 04/16/21 Recorded tetanus/diphtheria/pertussis, acel(Tdap) 09/26/09 Recorde d pneumococcal 23-valent vaccine 08/04/05 Recorded tetanus-diphtheria toxoids (Td) 06/13/04 Recorded hepatitis B adult vaccine 06/13/04 Recorded Medications acetaminophen 325 mg oral tablet 975 mg, Tablet, By Mouth, Every 8 hours, PRN for Pain , Mild, Routine, 04/24/22 11:57:00 EDT Start Date: 04/24/22 Stop Date: 05/03/22 Status: Discontinuedacetaminophen 325 mg oral tablet 975 mg, 3, tablet, By Mouth, Every 8 hours, PRN, Refills 0, Maintenance, Pain , Mild, 05/02/22 11:01:00 EDT, Partial fill upon patient request if the prescription is for a schedule II opioid drug. Start Date: 05/02/22 Status: Orderedalbuterol-ipratropium 3 mg-0.5 mg/3 ml inhalation solution 3 mL, Inhalation, 4 times a day, # 360 mL, 11 Refills, Maintenance, 10/18/18 11:45:00 EST, Solution,ICD Code J45.20, 3 mL Inhalation 4 times a day Start Date: 10/18/18 Status: Orderedatropine-diphenoxylate 0.025 mg-2.5 mg oral tablet TAKE 2 TABLETS BY MOUTH 4 TIMES DAILY. Start Date: 04/21/22 Status: OrderedclonazePAM 1 mg oral tablet TAKE 1 TABLET BY MOUTH THREE TIMES A DAY NEEDED Start Date: 06/07/19 Status: OrderedEnoxaparin 0.4 mL = 40 mg, Subcutaneous Injection, Daily, 0 Refills, Maintenance, 05/02/22 11:02:00 EDT, Injection, Partial fill upon patient request if the prescription is for a schedule II opioid drug. Start Date: 05/02/22 Stop Date: 05/20/22 Status: OrderedFluoxetine = 20 mg, By Mouth, Daily, 0 Refills, Maintenance, 05/04/21 17:40:00 EDT, Partial fill upon patient request if the prescription is for a schedule II opioid drug. Start Date: 05/04/21 Status: Orderedfluticasone 50 mcg/inh nasal spray SPRAY 1 SPRAY INTO EACH NOSTRIL EVERY DAY Start Date: 04/21/22 Status: OrderedhydrOXYzine hydrochloride 25 mg oral tablet TAKE 1 TABLET BY MOUTH 3 TIMES A DAY NEEDED *TAKE PRIOR TO NEEDED CLONAZEPAM* Start Date: 04/21/22 Status: Orderedlamotrigine 150 mg oral tablet 1 tablet = 150 mg, By Mouth, 2 times a day, # 60 tablet, 0 Refills, Maintenance, 10/18/20 3:14:00 EST, Tablet, Partial fill upon patient request Start Date: 10/18/20 Status: Orderedolanzapine 5 mg oral tablet TAKE 1/2-1 TABLET BY MOUTH ONCE DAILY AT BEDTIME NEEDED Start Date: 04/21/22 Status: Orderedondansetron 4 mg oral tablet TAKE 1 TABLET BY MOUTH EVERY 8 HOURS NEEDED FOR NAUSEA FOR UP TO 7 DAYS. Start Date: 04/21/22 Status: OrderedoxyCODONE 5 mg oral tablet 5 mg, 1, tablet, By Mouth, Every 4 hours, PRN, Refills 0, Tot. Refills 0, Maintenance, Pain , Moderate, 05/02/22 11:01:00 EDT, Partial fill upon patient request if the prescription is for a schedule IIopioid drug. Start Date: 05/02/22 Status: Orderedpantoprazole 20 mg oral delayed release tablet TAKE 1 TABLET BY MOUTH TWICE A DAY Start Date: 04/21/22 Status: OrderedProAir HFA 90 mcg/inh inhalation aerosol with adapter 180 mcg, 2, puffs, Inhalation, 4 times a day, PRN, # 1 each, Refills 11, Tot. Refills 11, Maintenance, 04/09/18 16:09:00 EDT, Inhaler, Route to Pharmacy Electronically, [id number], [facility]/pharmacy #[id number], ICD Code J45.20 Start Date: 04/09/18 Status: Orderedright carpal tunnel wrist splint right carpal tunnel wrist splint, See Instructions, # 1 kit, Refills 0, Tot. Refills 0, Maintenance,rotate on/off every 2 hours while awake. Pt may benefit from delivery service. Diagnosis right CTS, 02/20/22 15:14:00 EDT, Supply Start Date: 02/20/22 Status: OrderedrisperiDONE 0.5 mg oral tablet TAKE 1 TABLET BY MOUTH TWICE A DAY NEEDED Start Date: 04/21/22 Status: Orderedthiamine 100 mg oral tablet 100 mg, 1, tablet, By Mouth, Daily, Refills 0, Maintenance, 05/02/22 11:01:00 EDT, Partial fill uponpatient request if the prescription is for a schedule II opioid drug. Start Date: 05/02/22 Status: Orderedtopiramate 50 mg oral tablet See Instructions, Take 1/2 tablet in the AM and 2 1/2 tablet at bedtime, # 90 tablet, 11 Refills, 01/01/22 16:54:00 EST, [id number], please refill early, 150, cm, 06/07/21 15:59:00 EDT, Height,61, kg, 05/03/21 7:53:00 EDT, Dry Weight Start Date: 01/01/22 Status: OrderedVitamin C 250 mg oral tablet 1 tablet = 250 mg, By Mouth, Daily, 0 Refills, Maintenance, 05/03/21 16:57:00 EDT, Partial fill uponpatient request if the prescription is for a schedule II opioid drug. Start Date: 05/03/21 Status: OrderedVitamin D3 50,000 intl units oral capsule TAKE 1 CAPSULE BY MOUTH ONE TIME PER WEEK Start Date: 04/21/22 Status: OrderedWixela Inhub 500 mcg-50 mcg inhalation powder 1 inhalation, Inhalation, 2 times a day, rinse mouth and throat after use, 0 Refills, Maintenance, 04/21/22 18:19:00 EDT, Powder, Partial fill upon patient request if the prescription is for a scheduleII opioid drug. Start Date: 04/21/22 Status: Ordered Problem List Condition Effective Dates Status Health Status Informant Asthma(Confirmed) Active Asthma with COPD(Confirmed) Active Depression(Confirmed) Active Fibromyalgia(Confirmed) Active GERD (gastroesophageal reflux Active disease)(Confirmed) PTSD (post-traumatic stress Active disorder)(Confirmed) Self mutilating behavior(Confirmed) Active Sleep apnea(Confirmed) Active Procedures Procedure Date Related Diagnosis Body Site Status Treatment of intertrochanteric, 04/22/22 Completed peritrochanteric, or subtrochanteric femoral fracture; with intramedullary implant, with or without interlocking screws and/or cerclage1 1[facility] InterTAN, 10 mm x 18 cm, 125 degree tori, with 80/75 mm integrated lag screw, and 30 mm distal interlocking screw. Results Radiology Reports Exam Date Time Procedure Performing Provider Status 04/22/22 4:25 PM C-Arm < 1 Hour Casey Kline; Auth (Verified) Notes:(C-Arm < 1 Hour) Reason For Exam: lt hip rodRESULT: C-Arm < 1 Hour Femur 2 Views Left, C-Arm < 1 Hour INDICATION: Reason: lt hip tori COMPARISONS: None TECHNIQUE: Fluoroscopy support was provided. There was no radiologist in attendance. FLUOROSCOPY TIME: 28 seconds EXPOSURE: 7.51 mGy TECHNOLOGIST TIME: 40 minutes FINDINGS: 5 fluoroscopic images submitted during ORIF left femur. Please refer to operative report for complete findings and narrative IMPRESSION: See above. WSN: [id number] Ordering Physician: Corey Hinkle MD Dictated By: Brendon Garcia MD Dictated Date/Time: 04/22/22 7:18 pm Reviewed By: Brendon Garcia MD Signed By: Brendon Garcia MD Signed Date/Time: 04/22/22 7:18 pm Transcribed By: DARRYL Transcribed Date/Time: 04/22/22 7:18 pm Exam Date Time Procedure Performing Provider Status 04/22/22 4:25 PM XR Femur 2 Views Left Casey Kline; Danny (Veri fied) Notes:(XR Femur 2 Views Left) Reason For Exam: lt hip rodRESULT: Femur 2 Views Left Femur 2 Views Left, C-Arm < 1 Hour INDICATION: Reason: lt hip tori COMPARISONS: None TECHNIQUE: Fluoroscopy support was provided. There was no radiologist in attendance. FLUOROSCOPY TIME: 28 seconds EXPOSURE: 7.51 mGy TECHNOLOGIST TIME: 40 minutes FINDINGS: 5 fluoroscopic images submitted during ORIF left femur. Please refer to operative report for complete findings and narrative IMPRESSION: See above. WSN: [id number] Ordering Physician: Corey Hinkle MD Dictated By: Brendon Garcia MD Dictated Date/Time: 04/22/22 7:18 pm Reviewed By: Brendon Garcia MD Signed By: Brendon Garcia MD Signed Date/Time: 04/22/22 7:18 pm Transcribed By: DARRYL Transcribed Date/Time: 04/22/22 7:18 pm Vital Signs Most recent to oldest 1 2 3 [Reference Range]: Oxygen Saturation [94-100 %] 97 % 100 % 98 % (05/02/22 7:21 AM) (05/02/22 4:19 AM) (05/01/22 7:39 PM) Pulse Rate [55-90 bpm] 66 bpm 64 bpm 108 bpm (05/02/22 7:21 AM) (05/02/22 4:19 AM) *H* (05/01/22 7:39 PM) Blood Pressure [90-138/55-84 mm 105/73 mm Hg 104/68 mm Hg 109/62 mm Hg Hg] (05/02/22 7:21 AM) (05/02/22 4:19 AM) (05/01/22 7:39 PM) Respiratory Rate [16-30 br/min] 20 br/min 16 br/min 20 br/min (05/02/22 9:17 AM) (05/02/22 7:21 AM) (05/02/22 4:1 9 AM) Temperature [96.8-100.4 DegF] 98.3 DegF 98.1 DegF 98 .1 DegF (05/02/22 7:21 AM) (05/02/22 4:19 AM) (05/01/22 7:39 PM) Liters per Minute 6 L/min (04/22/22 5:00 PM) Mode of Delivery (Oxygen) Room air Room air Room a ir (05/02/22 7:21 AM) (05/02/22 4:19 AM) (05/01/22 7:39 PM) Blood pressure sites Arm, left Arm, left Arm, left (05/02/22 7:21 AM) (05/02/22 4:19 AM) (05/01/22 7:39 PM) Temperature Route Oral Oral Oral (05/02/22 7:21 AM) (05/02/22 4:19 AM) (05/01/22 7:39 PM) Social History Social History Type Response Smoking Status Former smoker, quit more delmar n 30 days ago entered on: 10/01/20 Sex
--- OUTSIDE RECORDS SUMMARY | 2022-10-10 10:11 | XMS_ITS | Continuity of Care Document ---
:1970 Author Organization [facility] Address [address] [place] [address]- Care Team Providers Name Role Phone Eusebio Payton DO Primary Care Physician Encounter [facility] Date(s): 12/20/20 - 01/19/21 [facility] [place] [address] [place] [address]- Allergies, Adverse Reactions, Alerts Substance Reaction Severity [...] 2 PUFFS BY MOUTH TWICE A DAY, [facility]/pharmacy #[id number] Start Date: 08/16/19 Status: OrderedhydrOXYzine pamoate 50 [...] 10/22/20 13:11:00 EST, Route to Pharmacy Electronically, [facility]/pharmacy #[id number], Partial fill upon patient request, 150, [...] Refills, Maintenance, 12/01/20 5:34:00 EST, ER Tablet, [facility]/pharmacy #[id number], Partial fill upon patient request if the prescription is for a schedule II opioid drug., 173, cm, 12/01/20 3:52:00 ES... Start Date: 12/01/20 Stop Date: 12/08/20 Status: OrderedProAir HFA 90 mcg/inh inhalation aerosol with adapter 180 mcg, 2, puffs, Inhalation, 4 times a day, PRN, # 1 each, Refills 11, Tot. Refills 11, Maintenance, 04/09/18 16:09:00 EDT, Inhaler, Route to Pharmacy Electronically, [id number], [facility]/pharmacy #[id number], ICD Code J45.20 Start Date: 04/09/18 Status: OrderedSEROquel 200 mg oral tablet 200 mg, 1, tablet, By Mouth, 2 times a day, # 60 tablet, Refills 5, Tot. Refills 5, Maintenance, 12/29/17 15:09:37, Route to Pharmacy Electronically, [id number], [facility]/pharmacy #[id number] Start Date: 12/29/17 Stop Date: 06/27/18 Status: Orderedspironolactone 25 mg oral tablet 12.5 mg, 0.5, tablet, By Mouth, Daily, # 10 tablet, Refills 0, Tot. Refills 0, Maintenance, :54:00 EST, [id number] Partial fill upon patient requestif the prescription is for a schedule II opioid d... Start Date: 12/15/20 Status: Orderedtopiramate 50 mg oral tablet See Instructions, TAKE 1.5 TABLET BY MOUTH EVERYDAY AT BEDTIME, # 45 tablet, 6 Refills, 05/08/20 15:55:00 EDT, [facility], 152, cm, 04/16/20 5:09:00 EDT, Height, [...]
--- OUTSIDE RECORDS SUMMARY | 2022-10-10 10:11 | XMS_ITS | Continuity of Care Document ---
:1970 Author Organization [facility] Address [address] [facility], 3rd Floor, [address] [place] [id number]- Care Team Providers Name Role Phone Eusebio Payton DO Primary Care Physician Encounter [facility] [place] Date(s): 05/08/20 - 05/15/20 [facility] [address], [address], [address] [place] [address]- [facility] Attending Physician: Mira ALFARO, Vitor Barfield Allergies, Adverse Reactions, Alerts Substance Reaction Severity [...] 2 PUFFS BY MOUTH TWICE A DAY, [facility]/pharmacy #[id number] Start Date: 08/16/19 Status: OrderedFlovent [...] 16:09:00 EDT, Inhaler, Route to Pharmacy Electronically, [id number], [facility]/pharmacy #[id number], ICD Code J45.20 Start Date: 04/09/18 Status: OrderedSEROquel 200 mg oral tablet 200 mg, 1, tablet, By Mouth, 2 times a day, # 60 tablet, Refills 5, Tot. Refills 5, Maintenance, 12/29/17 15:09:37, Route to Pharmacy Electronically, [id number], [facility]/pharmacy #[id number] Start Date: 12/29/17 Stop Date: 06/27/18 Status: Orderedsertraline 100 mg oral tablet 1 tablet = 100 mg, By Mouth, Daily, # 30 tablet, 0 Refills, Maintenance, 06/26/19 17:17:27 EDT, Tablet Start Date: 06/26/19 Status: Orderedtopiramate 50 mg oral tablet See Instructions, TAKE 1.5 TABLET BY MOUTH EVERYDAY AT BEDTIME, # 45 tablet, 6 Refills, 05/08/20 15:55:00 EDT, [facility], 152, cm, 04/16/20 5:09:00 EDT, Height, [...]
--- OUTSIDE RECORDS SUMMARY | 2022-10-10 10:11 | XMS_ITS | Continuity of Care Document ---
:1970 Author Organization [facility] Address [address] [place] [address]- Care Team Providers Name Role Phone Eusebio Payton DO Primary Care Physician [place] [facility] [place] - 06/06/21 [facility] [address] [place] [address] Attending Physician: AdmHéctor paul Admitting Physician: AdmtrHéctor Referring Physician: Admtr, Ar8 Allergies, Adverse Reactions, Alerts Substance Reaction Severity Status ciprofloxacin Active penicillin swell up can't swallow Active Keflex full body swelling hives Active Latex rash all over Active Other Food Allergy swell up Active coconut oil Cymbalta lips and face swell Active Immunizations Given and Recorded Vaccine Date Status Refusal Reason SARS-CoV-2 (COVID-19) mRNA-1273 vaccine 04/16/21 Recorded tetanus/diphtheria/pertussis, acel(Tdap) 09/26/09 Recorde d pneumococcal 23-valent vaccine 08/04/05 Recorded tetanus-diphtheria toxoids (Td) 06/13/04 Recorded hepatitis B adult vaccine 06/13/04 Recorded Medications albuterol-ipratropium 3 mg-0.5 mg/3 ml inhalation [...] 2 PUFFS BY MOUTH TWICE A DAY, [facility]/pharmacy #[id number] Start Date: 08/16/19 Status: OrderedFlovent Diskus Inhalation, 2 times a day, 0 Refills, Maintenance, 05/03/21 16:56:00 EDT, Partial fill upon patient request if the prescription is for a schedule II opioid drug. Start Date: 05/03/21 Status: OrderedFluoxetine = 20 mg, By Mouth, Daily, 0 Refills, Maintenance, 05/04/21 17:40:00 EDT, Partial fill upon patient request if the prescription is for a schedule II opioid drug. Start Date: 05/04/21 Status: OrderedhydrOXYzine pamoate 50 mg oral capsule TAKE 1 CAPSULE BY MOUTH TWICE A DAY Start Date: 06/07/19 Status: Orderedlamotrigine 150 mg oral tablet 1 tablet = 150 mg, By Mouth, 2 times a day, # 60 tablet, 0 Refills, Maintenance, 10/18/20 3:14:00 EST, Tablet, Partial fill upon patient request Start Date: 10/18/20 Status: OrderedLexapro 20 mg oral tablet 1 tablet = 20 mg, By Mouth, Daily, # 30 tablet, 0 Refills, Maintenance, 04/16/20 0:52:00 EDT, Tablet Start Date: 04/16/20 Status: OrderedLomotil Tablet 1, tablet, Refills 0, Maintenance, 05/03/21 16:55:00 EDT, Partial fill upon patient request if the prescription is for a schedule II opioid drug. Start Date: 05/03/21 Status: Orderedpantoprazole 40 mg oral delayed release tablet 1 tablet = 40 mg, By Mouth, 2 times a day, 0 Refills, Maintenance, 05/03/21 16:56:00 EDT Start Date: 05/03/21 Status: Orderedpotassium chloride 20 mEq oral tablet, extended release 1 tablet = 20 mEq, By Mouth, 2 times a day, # 14 tablet, 0 Refills, Maintenance, 12/01/20 5:34:00 EST, ER Tablet, [facility]/pharmacy #[id number], Partial fill upon patient request [...] 16:09:00 EDT, Inhaler, Route to Pharmacy Electronically, [id number], [facility]/pharmacy #[id number], ICD Code J45.20 Start Date: 04/09/18 Status: OrderedrisperiDONE 2 mg oral tablet 2 mg, 1, tablet, By Mouth, Daily, Refills 0, Maintenance, 05/03/21 16:56:00 EDT, Partial fill upon patient request if the prescription is for a schedule II opioid drug. Start Date: 05/03/21 Status: OrderedSEROquel 200 mg oral tablet 200 mg, 1, tablet, By Mouth, 2 times a day, # 60 tablet, Refills 5, Tot. Refills 5, Maintenance, 12/29/17 15:09:37, Route to Pharmacy Electronically, [id number], [facility]/pharmacy #[id number] Start Date: 12/29/17 Stop Date: 06/27/18 Status: Orderedtopiramate 50 mg oral tablet See Instructions, TAKE 1.5 TABLET BY MOUTH EVERYDAY AT BEDTIME, # 45 tablet, 6 Refills, 05/08/20 15:55:00 EDT, [facility], 152, cm, 04/16/20 5:09:00 EDT, Height, 100, kg, 04/16/20 5:09:00 EDT, Dry Weight Start Date: 05/08/20 Status: OrderedVitamin C 250 mg oral tablet 1 tablet = 250 mg, By Mouth, Daily, 0 Refills, Maintenance, 05/03/21 16:57:00 EDT, Partial fill uponpatient request if the prescription is for a schedule II opioid drug. Start Date: 05/03/21 Status: Ordered Problem List Condition Effective Dates [...]
--- OUTSIDE RECORDS SUMMARY | 2022-10-10 10:11 | XMS_ITS | Continuity of Care Document ---
:1970 Author Organization [facility] Address [address] [place] [address], [address] [facility], [address] [place] [address]- Care Team Providers Name Role Phone Eusebio Payton DO Primary Care Physician Encounter [facility] [place] Date(s): 01/19/20 - 01/26/20 [facility] [address] [place] [address], [address] [facility], [address] [place] [address]- [facility] Attending Physician: Torito Villagomez MD Referring [...] times a day Start Date: 10/18/18 Status: Orderedamitriptyline 50 mg oral tablet 1 tablet = 50 mg, By Mouth, Daily at bedtime, # 30 tablet, 0 Refills, Maintenance, 06/07/19 20:44:58EDT, Tablet Start Date: 06/07/19 Status: OrderedclonazePAM 1 mg oral tablet TAKE 1 TABLET BY MOUTH THREE TIMES A DAY NEEDED Start Date: 06/07/19 Status: OrderedDiflucan 50 mg oral tablet See Instructions, 1 tablet By Mouth Daily 10 days, 0 Refills, Maintenance, 12/15/19 19:53:00 EST, Tablet Start Date: 12/15/19 Status: OrderedDulera 200 mcg-5 mcg/inh inhalation aerosol See Instructions, # 13 Unknown, Refills 1 Tot. Refills 1, INHALE 2 PUFFS BY MOUTH TWICE A DAY, [facility]/pharmacy #[id number] Start Date: 08/16/19 Status: OrderedhydrOXYzine pamoate 50 mg oral capsule TAKE 1 CAPSULE BY MOUTH TWICE A DAY Start Date: 06/07/19 Status: Orderedlamotrigine 50 mg oral tablet, disintegrating 1 tablet = 50 mg, By Mouth, 2 times a day, 0 Refills, Maintenance, 06/26/19 17:18:38 EDT Start Date: 06/26/19 Status: Orderednaltrexone 50 mg oral tablet 0 Refills, Maintenance, 01/19/20 14:01:00 EST Start Date: 01/19/20 Status: OrderedOmeprazole = 20 mg, By Mouth, Daily, 0 Refills, Maintenance, 03/12/15 11:28:08 Start Date: 03/12/15 Status: OrderedpredniSONE 20 mg oral tablet 2 tablet = 40 mg, By Mouth, Daily, # 8 tablet, 0 Refills, Maintenance, 10/26/19 11:35:32 EST, Tablet, 152, cm, 07/19/19 12:05:14 EDT, Height, 99.5, kg, 07/17/19 4:19:11 EDT, Dry Weight Start Date: 10/26/19 Stop Date: 10/30/19 Status: OrderedProAir HFA 90 mcg/inh inhalation aerosol with adapter 180 mcg, 2, puffs, Inhalation, 4 times a day, PRN, # 1 each, Refills 11, Tot. Refills 11, Maintenance, 04/09/18 16:09:00 EDT, Inhaler, Route to Pharmacy Electronically, [id number], [facility]/pharmacy #[id number], ICD Code J45.20 Start Date: 04/09/18 Status: OrderedSEROquel 200 mg oral tablet 200 mg, 1, tablet, By Mouth, 2 times a day, # 60 tablet, Refills 5, Tot. Refills 5, Maintenance, 12/29/17 15:09:37, Route to Pharmacy Electronically, [id number], [facility]/pharmacy #[id number] Start Date: 12/29/17 Stop Date: 06/27/18 Status: Orderedsertraline 100 mg oral tablet 1 tablet = 100 mg, By Mouth, Daily, # 30 tablet, 0 Refills, Maintenance, 06/26/19 17:17:27 EDT, Tablet Start Date: 06/26/19 Status: Orderedtopiramate 50 mg oral tablet See Instructions, TAKE 1.5 TABLET BY MOUTH EVERYDAY AT BEDTIME, # 45 tablet, 4 Refills, 01/19/20 14:26:00 EST, [facility], 152, cm, 01/19/20 13:47:00 EST, Height, 103, kg, 12/15/19 22:07:00 EST, Dry Weight Start Date: 01/19/20 Status: Ordered Problem List Condition Effective Dates Status Health Status Informant Asthma(Confirmed) Active Asthma with COPD(Confirmed) Active Depression(Confirmed) Active Fibromyalgia(Confirmed) Active GERD (gastroesophageal reflux Active disease)(Confirmed) PTSD (post-traumatic stress Active disorder)(Confirmed) Self mutilating behavior(Confirmed) Active Sleep apnea(Confirmed) Active Vital Signs Most recent to oldest [Reference Range]: 1 Height 152 cm (01/19/20 1:47 PM) Oxygen Saturation [94-100 %] 97 % (01/19/20 1:47 PM) Pulse Rate [55-90 bpm] 80 bpm (01/19/20 1:47 PM) Blood Pressure [90-138/55-84 mm Hg] 101/63 mm Hg (01/19/20 1:47 PM) Mode of Delivery (Oxygen) Room air (01/19/20 1:47 PM) Blood pressure sites Arm, right (01/19/20 1:47 PM) Social History Social History Type Response Smoking Status Current every day smoker; Ty pe: Cigarettes; Started at age: 45; entered on: 07/27/18 Sex
--- OUTSIDE RECORDS SUMMARY | 2022-10-10 10:11 | XMS_ITS | Continuity of Care Document ---
:1970 Author Organization [facility] Address [address] [place] [address]- Care Team Providers Name Role Phone Eusebio Payton DO Primary Care Physician Encounter [facility] Date(s): 06/11/20 - 07/11/20 [facility] [address] [place] [address]- [facility] Attending Physician: AdmtrHéctor Admitting Physician: Admtr, Jimbo8 Referring Physician: Admtr, Ar8 Allergies, Adverse Reactions, Alerts Substance Reaction Severity Status ciprofloxacin Active Cymbalta lips and face swell Active penicillin swell up can't swallow Active [...] 2 PUFFS BY MOUTH TWICE A DAY, [facility]/pharmacy #0315 Start Date: 08/16/19 Status: OrderedFlovent Diskus [...] 16:09:00 EDT, Inhaler, Route to Pharmacy Electronically, [id number], [facility]/pharmacy #[id number], ICD Code J45.20 Start Date: 04/09/18 Status: OrderedSEROquel 200 mg oral tablet 200 mg, 1, tablet, By Mouth, 2 times a day, # 60 tablet, Refills 5, Tot. Refills 5, Maintenance, 12/29/17 15:09:37, Route to Pharmacy Electronically, [id number], [facility]/pharmacy #[id number] Start Date: 12/29/17 Stop Date: 06/27/18 Status: Orderedsertraline 100 mg oral tablet 1 tablet = 100 mg, By Mouth, Daily, # 30 tablet, 0 Refills, Maintenance, 06/26/19 17:17:27 EDT, Tablet Start Date: 06/26/19 Status: Orderedtopiramate 50 mg oral tablet See Instructions, TAKE 1.5 TABLET BY MOUTH EVERYDAY AT BEDTIME, # 45 tablet, 6 Refills, 05/08/20 15:55:00 EDT, [facility], 152, cm, 04/16/20 5:09:00 EDT, Height, [...]
--- OUTSIDE RECORDS SUMMARY | 2022-10-10 10:11 | XMS_ITS | Continuity of Care Document ---
:1970 Author Organization [facility] Address Unavailable , Care Team Providers Name Role Phone Eusebio Payton DO Primary Care Physician Encounter [facility] Date(s): 02/20/22 - 02/27/22 [facility] Attending Physician: Tuyet Austin MD Referring Physician: Eusebio Payton DO Allergies, [...] times a day Start Date: 10/18/18 Status: OrderedclonazePAM 1 mg oral tablet TAKE 1 TABLET BY MOUTH THREE TIMES A DAY NEEDED Start Date: 06/07/19 Status: OrderedDulera 200 mcg-5 mcg/inh inhalation aerosol See Instructions, # 13 Unknown, Refills 1 Tot. Refills 1, INHALE 2 PUFFS BY MOUTH TWICE A DAY, [id number] Start Date: 08/16/19 Status: OrderedFlovent Diskus [...] Refills, Maintenance, 12/01/20 5:34:00 EST, ER Tablet, [facility]/pharmacy #[id number], Partial fill upon patient request [...] 16:09:00 EDT, Inhaler, Route to Pharmacy Electronically, [id number], [facility]/pharmacy #[id number], ICD Code J45.20 Start Date: 04/09/18 Status: Orderedright carpal tunnel wrist splint right carpal tunnel wrist splint, See Instructions, # 1 kit, Refills 0, Tot. Refills 0, Maintenance,rotate on/off every 2 hours while awake. Pt may benefit from delivery service. Diagnosis right CTS, 02/20/22 15:14:00 EDT, Supply Start Date: 02/20/22 Status: OrderedrisperiDONE 2 mg oral tablet 2 [...] Maintenance, 12/29/17 15:09:37, Route to Pharmacy Electronically, [id number], [facility]/pharmacy #[id number] Start Date: 12/29/17 Stop Date: 06/27/18 Status: Orderedtopiramate 50 mg oral tablet See Instructions, Take 1/2 tablet in the AM and 2 1/2 tablet at bedtime, # 90 tablet, 11 Refills, 01/01/22 16:54:00 EST, [facility]/pharmacy #0315, please refill early, 150, cm, 06/07/21 [...]
--- OUTSIDE RECORDS SUMMARY | 2022-10-10 10:11 | XMS_ITS | Continuity of Care Document ---
:1970 Author Organization [facility] Address Unavailable , Care Team Providers Name Role Phone Eusebio Payton DO Primary Care Physician Encounter [facility] Date(s): 11/14/21 - 11/21/21 [facility] Attending Physician: Tuyet Austin MD Referring Physician: Eusebio Payton DO Allergies, Adverse Reactions, Alerts Substance Reaction Severity Status ciprofloxacin Active Latex rash all over Active Other Food Allergy swell up Active coconut oil Cymbalta lips and face swell Active penicillin swell up can't swallow Active Keflex full body swelling hives Active Immunizations Given and Recorded Vaccine Date [...] Refills, Maintenance, 12/01/20 5:34:00 EST, ER Tablet, [facility]/pharmacy #[id number], Partial fill upon patient request if the prescription is for a schedule II opioid drug., 173, cm, 12/01/20 3:52:00 ES... Start Date: 12/01/20 Stop Date: 12/08/20 Status: OrderedProAir HFA 90 mcg/inh inhalation aerosol with adapter 180 mcg, 2, puffs, Inhalation, 4 times a day, PRN, # 1 each, Refills 11, Tot. Refills 11, Maintenance, 04/09/18 16:09:00 EDT, Inhaler, Route to Pharmacy Electronically, [id number], [facility]/pharmacy #[id number], ICD Code J45.20 Start Date: 04/09/18 [...] Maintenance, 12/29/17 15:09:37, Route to Pharmacy Electronically, [id number], [facility] Start Date: 12/29/17 Stop Date: 06/27/18 Status: Orderedtopiramate 50 mg oral tablet See Instructions, Take 1/2 tablet in the AM and 2 1/2 tablet at bedtime, # 90 tablet, 8 Refills, 11/14/21 13:19:00 EST, [facility]/pharmacy #[id number], 150, cm, 06/07/21 15:59:00 EDT, Height, 61, kg, 05/03/21 7:53:00 EDT, Dry Weight Start Date: 11/14/21 Status: OrderedVitamin C 250 mg oral tablet [...]
--- OUTSIDE RECORDS SUMMARY | 2022-10-10 10:11 | XMS_ITS | Continuity of Care Document ---
:1970 Author Organization [facility] Address [address] [place] [address]- Care Team Providers Name Role Phone Eusebio Payton DO Primary Care Physician Encounter [facility] Date(s): 12/20/20 - 01/27/21 [facility] [address] [place] [address]- Attending Physician: Crys REAL, Freddie Yeager Referring Physician: Eusebio Payton DO Allergies, Adverse [...] 16:09:00 EDT, Inhaler, Route to Pharmacy Electronically, [id number], [facility]/pharmacy #[id number], ICD Code J45.20 Start Date: 04/09/18 Status: OrderedSEROquel 200 mg oral tablet 200 mg, 1, tablet, By Mouth, 2 times a day, # 60 tablet, Refills 5, Tot. Refills 5, Maintenance, 12/29/17 15:09:37, Route to Pharmacy Electronically, [id number], [facility]/pharmacy #[id number] Start Date: 12/29/17 Stop Date: 06/27/18 Status: Orderedspironolactone 25 mg oral tablet 12.5 mg, 0.5, tablet, By Mouth, Daily, # 10 tablet, Refills 0, Tot. Refills 0, Maintenance, 216:54:00 EST, [facility] to Pharmacy Electronically, [facility] Partial fill upon patient requestif the prescription is for a schedule II opioid d... Start Date: 12/15/20 Status: Orderedtopiramate 50 mg oral tablet See Instructions, TAKE 1.5 TABLET BY MOUTH EVERYDAY AT BEDTIME, # 45 tablet, 6 Refills, 05/08/20 15:55:00 EDT, [facility], 152, cm, 04/16/20 5:09:00 EDT, Height, [...]
--- OUTSIDE RECORDS SUMMARY | 2022-10-10 10:11 | XMS_ITS | Continuity of Care Document ---
:1970 Author Organization [facility] Address [address] [place] [address]- Care Team Providers Name Role Phone Eusebio Payton DO Primary Care Physician Encounter [facility] Date(s): 11/30/20 - 12/01/[address] [address]- Discharge Disposition: A-D/C Home Attending Physician: Torito Liu DO Admitting Physician: Torito Liu DO Referring Physician: Not on Staff, Referring MD [...] PUFFS BY MOUTH TWICE A DAY, [id number] Start Date: 08/16/19 Status: OrderedFlovent Diskus Inhalation, [...] 10/22/20 13:11:00 EST, Route to Pharmacy Electronically, [facility]/pharmacy #[id number], Partial fill upon patient request, 150, [...] Refills, Maintenance, 12/01/20 5:34:00 EST, ER Tablet, [facility]/pharmacy #0315, Partial fill upon patient request if the prescription is for a schedule II opioid drug., 173, cm, 12/01/20 3:52:00 ES... Start Date: 12/01/20 Stop Date: 12/08/20 Status: OrderedProAir HFA 90 mcg/inh inhalation aerosol with adapter 180 mcg, 2, puffs, Inhalation, 4 times a day, PRN, # 1 each, Refills 11, Tot. Refills 11, Maintenance, 04/09/18 16:09:00 EDT, Inhaler, Route to Pharmacy Electronically, [id number], [facility]/pharmacy #[id number], ICD Code J45.20 Start Date: 04/09/18 Status: OrderedSEROquel 200 mg oral tablet 200 mg, 1, tablet, By Mouth, 2 times a day, # 60 tablet, Refills 5, Tot. Refills 5, Maintenance, 12/29/17 15:09:37, Route to Pharmacy Electronically, [id number], [facility]/pharmacy #[id number] Start Date: 12/29/17 Stop Date: 06/27/18 Status: Orderedtopiramate 50 mg oral tablet See Instructions, TAKE 1.5 TABLET BY MOUTH EVERYDAY AT BEDTIME, # 45 tablet, 6 Refills, 05/08/20 15:55:00 EDT, [facility], 152, cm, 04/16/20 5:09:00 EDT, Height, 100, kg, 04/16/20 5:09:00 EDT, Dry Weight Start Date: 05/08/20 Status: Ordered Problem List Condition Effective Dates Status Health Status Informant Asthma(Confirmed) Active Asthma with COPD(Confirmed) Active Depression(Confirmed) Active Fibromyalgia(Confirmed) Active GERD (gastroesophageal reflux Active disease)(Confirmed) PTSD (post-traumatic stress Active disorder)(Confirmed) Self mutilating behavior(Confirmed) Active Sleep apnea(Confirmed) Active Results Radiology Reports Exam Date Time Procedure Performing Provider Status 11/30/20 9:45 PM Abdomen Comp Inc Decub and/or Grodzicka , Elisha; Auth (Verified) Erect Notes:(Abdomen Comp Inc Decub and/or Erect) Reason For Exam: ConstipationRESULT: Abdomen Comp Inc Decub and/or Erect Abdomen Comp Inc Decub and/or Erect INDICATION/CLINICAL QUESTION: Hx of Present Illness: had f u with pcp c o lower abd pain with constipation took senokot without relief COMPARISON: 09/16/2017 FINDINGS: No significant stool retention. No evidence of obstruction No evidence of pneumoperitoneum. Surgical sutures demonstrated in the left upper quadrant with surgical clips in the left midabdomen.Small pelvic phleboliths. Lower lungs are clear. No acute osseous abnormality. IMPRESSION: No significant stool retention or evidence of bowel obstruction. WSN: [id number] Ordering Physician: Mich Dubon Dictated By: Migue Sweeney DO Dictated Date/Time: 11/30/20 9:46 pm Reviewed By: Migue Sweeney DO Signed By: Migue Sweeney DO Signed Date/Time: 11/30/20 9:46 pm Transcribed By: DARRYL Transcribed Date/Time: 11/30/20 9:45 pm Vital Signs Most recent to oldest [Reference 1 2 3 Range]: Height 173 cm 173 cm 173 cm (12/01/20 6:26 AM) (12/01/20 3:52 AM) (11/30/20 8:15 P M) Weight 79.5 kg 79.5 kg 79.5 kg (12/01/20 6:26 AM) (12/01/20 3:52 AM) (11/30/20 8:15 P M) Oxygen Saturation [94-100 %] 96 % 94 % 92 % (12/01/20 6:26 AM) (12/01/20 3:52 AM) *L* (11/30/20 8:15 PM) Pulse Rate [55-90 bpm] 89 bpm 89 bpm 83 bpm (12/01/20 6:26 AM) (12/01/20 3:52 AM) (11/30/20 8:15 P M) Body Mass Index [18.5-24.99] 26.56 26.56 *H* *H* (12/01/20 6:26 AM) (12/01/20 3:52 AM) Blood Pressure [90-138/55-84 mm 107/51 mm Hg 91/56 mm Hg 125/75 mm Hg Hg] (12/01/20 6:26 AM) (12/01/20 3:52 AM) (11/30/20 8:15 P M) Respiratory Rate [16-30 br/min] 21 br/min 17 br/min 22 br/min (12/01/20 6:26 AM) (12/01/20 3:52 AM) (11/30/20 8:15 P M) Temperature [96.8-100.4 DegF] 97.5 DegF (11/30/20 8:15 PM) Liters per Minute 0 L/min 0 L/min (12/01/20 6:26 AM) (12/01/20 3:52 AM) Mode of Delivery (Oxygen) Room air Room air Room a ir (12/01/20 6:26 AM) (12/01/20 3:52 AM) (11/30/20 8:15 P M) Blood pressure sites Arm, left Arm, left Arm, right (12/01/20 6:26 AM) (12/01/20 3:52 AM) (11/30/20 8:15 P M) Temperature Route Oral (11/30/20 8:15 PM) Dry Weight 79.5 kg 79.5 kg 79.5 kg (12/01/20 6:26 AM) (12/01/20 3:52 AM) (11/30/20 8:15 P M) Weight Obtained Via Standing scale (11/30/20 8:15 PM) Dry Weight Obtained Via Standing scale (11/30/20 8:15 PM) Social History Social History Type Response Smoking Status Former smoker, quit more delmar n 30 days ago entered on: 10/01/20 Sex
--- OUTSIDE RECORDS SUMMARY | 2022-10-10 10:11 | XMS_ITS | Continuity of Care Document ---
:1970 Author Organization [facility] Address [address] [place] [address]- Care Team Providers Name Role Phone Eusebio Payton DO Primary Care Physician Encounter [facility] Date(s): 12/15/19 - 12/15/[address] [address]- [facility] Discharge Disposition: A-D/C Home Attending Physician: Javier Reddy MD Admitting Physician: Javier Reddy MD Referring Physician: Not on Staff, Referring [...] 2 PUFFS BY MOUTH TWICE A DAY, [facility]/pharmacy #[id number] Start Date: 08/16/19 Status: OrderedhydrOXYzine pamoate 50 mg oral capsule TAKE 1 CAPSULE BY MOUTH TWICE A DAY Start Date: 06/07/19 Status: Orderedlamotrigine 50 mg oral tablet, disintegrating 1 tablet = 50 mg, By Mouth, 2 times a day, 0 Refills, Maintenance, 06/26/19 17:18:38 EDT Start Date: 06/26/19 Status: OrderedOmeprazole = 20 mg, By Mouth, [...] 16:09:00 EDT, Inhaler, Route to Pharmacy Electronically, [id number], [facility]/pharmacy #[id number], ICD Code J45.20 Start Date: 04/09/18 Status: OrderedSEROquel 200 mg oral tablet 200 mg, 1, tablet, By Mouth, 2 times a day, # 60 tablet, Refills 5, Tot. Refills 5, Maintenance, 12/29/17 15:09:37, Route to Pharmacy Electronically, [id number], [facility]/pharmacy #[id number] Start Date: 12/29/17 Stop Date: 06/27/18 Status: Orderedsertraline 100 mg oral tablet 1 tablet = 100 mg, By Mouth, Daily, # 30 tablet, 0 Refills, Maintenance, 06/26/19 17:17:27 EDT, Tablet Start Date: 06/26/19 Status: OrderedTopamax 50 mg oral tablet 1 tablet = 50 mg, By Mouth, Daily at bedtime, # 30 tablet, 4 Refills, Maintenance, 11/04/19 15:47:48EST, Tablet, [facility]/pharmacy #[id number], 152, cm, 11/04/19 15:24:09 EST, Height, 99.5, kg, 07/17/19 4:19:11 EDT, Dry Weight Start Date: 11/04/19 Stop Date: 04/02/20 Status: Ordered Problem List Condition Effective Dates Status Health Status Informant Asthma(Confirmed) Active Asthma with COPD(Confirmed) Active Depression(Confirmed) Active Fibromyalgia(Confirmed) Active GERD (gastroesophageal reflux Active disease)(Confirmed) PTSD (post-traumatic stress Active disorder)(Confirmed) Self mutilating behavior(Confirmed) Active Sleep apnea(Confirmed) Active Vital Signs Most recent to oldest 1 2 3 [Reference Range]: Height 152 cm 152 cm 152 cm (12/15/19 10:07 PM) (12/15/19 8:49 PM) (12/15/19 8: 47 PM) Weight 103 kg 103 kg 103 kg (12/15/19 10:07 PM) (12/15/19 8:49 PM) (12/15/19 8: 47 PM) Oxygen Saturation [94-100 %] 100 % 100 % 99 % (12/15/19 10:07 PM) (12/15/19 8:47 PM) (12/15/19 8: 41 PM) Pulse Rate [55-90 bpm] 74 bpm 77 bpm 84 bpm (12/15/19 10:07 PM) (12/15/19 8:47 PM) (12/15/19 8: 41 PM) Body Mass Index [18.5-24.99] 44.58 44.58 44. 58 *>HHI* *>HHI* *>HHI* (12/15/19 10:07 PM) (12/15/19 8:49 PM) (12/15/19 8: 47 PM) Blood Pressure [90-138/55-84 107/68 mm Hg 95/61 mm Hg 90/ 46 mm Hg mm Hg] (12/15/19 10:07 PM) (12/15/19 8:49 PM) (12/15/19 8: 47 PM) Respiratory Rate [16-30 16 br/min 16 br/min 16 br/mi n br/min] (12/15/19 10:14 PM) (12/15/19 10:07 PM) (12/15/19 9 :14 PM) Temperature [96.8-100.4 DegF] 97.9 DegF 97.5 DegF (12/15/19 7:46 PM) (12/15/19 7:25 PM) Mode of Delivery (Oxygen) Room air Room air Room a ir (12/15/19 10:07 PM) (12/15/19 8:47 PM) (12/15/19 8: 41 PM) Blood pressure sites Arm, left Arm, right Arm, left (12/15/19 10:07 PM) (12/15/19 8:49 PM) (12/15/19 8: 47 PM) Temperature Route Oral Oral (12/15/19 7:46 PM) (12/15/19 7:25 PM) Dry Weight 103 kg 103 kg 103 kg (12/15/19 10:07 PM) (12/15/19 8:49 PM) (12/15/19 8: 47 PM) Social History Social History Type Response Smoking Status Current every day smoker; Ty pe: Cigarettes; Started at age: 45; entered on: 07/27/18 Sex
--- OUTSIDE RECORDS SUMMARY | 2022-10-10 10:11 | XMS_ITS | Continuity of Care Document ---
:1970 Author Organization [facility] Address [address] [place] [address]- Care Team Providers Name Role Phone Eusebio Payton DO Primary Care Physician Encounter [facility] Date(s): 04/11/21 - 05/19/21 [facility] [address] [place], [place] [address] Attending Physician: Jennifer Alford MD Admitting Physician: Jennifer Alford MD Referring Physician: Eusebio Payton DO Allergies, Adverse Reactions, Alerts Substance Reaction Severity Status ciprofloxacin Active Keflex full body swelling hives Active Cymbalta lips and face swell Active penicillin swell up can't swallow Active Latex rash all over Active Other Food Allergy swell up Active coconut oil Immunizations Given and Recorded Vaccine Date Status Refusal Reason SARS-CoV-2 (COVID-19) mRNA-2677 vaccine 04/16/21 Recorded tetanus/diphtheria/pertussis, acel(Tdap) 09/26/09 Recorde [...] 2 PUFFS BY MOUTH TWICE A DAY, [facility]/pharmacy #[id number] Start Date: 08/16/19 Status: OrderedFlovent [...] Refills, Maintenance, 12/01/20 5:34:00 EST, ER Tablet, [facility]/pharmacy #[id number], Partial fill upon patient request if the prescription is for a schedule II opioid drug., 173, cm, 12/01/20 3:52:00 ES... Start Date: 12/01/20 Stop Date: 12/08/20 Status: OrderedProAir HFA 90 mcg/inh inhalation aerosol with adapter 180 mcg, 2, puffs, Inhalation, 4 times a day, PRN, # 1 each, Refills 11, Tot. Refills 11, Maintenance, 04/09/18 16:09:00 EDT, Inhaler, Route to Pharmacy Electronically, [id number], [facility]/pharmacy #[id number], ICD Code J45.20 Start Date: [...] Maintenance, 12/29/17 15:09:37, Route to Pharmacy Electronically, [id number], [facility]/pharmacy #0315 Start Date: 12/29/17 Stop Date: 06/27/18 Status: Orderedtopiramate 50 mg oral tablet See Instructions, TAKE 1.5 TABLET BY MOUTH EVERYDAY AT BEDTIME, # 45 tablet, 6 Refills, 05/08/20 15:55:00 EDT, [facility], 152, cm, 04/16/20 5:09:00 EDT, Height, [...]
--- OUTSIDE RECORDS SUMMARY | 2022-10-10 10:11 | XMS_ITS | Continuity of Care Document ---
:1970 Author Organization [facility] Address [address] [place] [id number]- Care Team Providers Name Role Phone Eusebio Payton DO Primary Care Physician Encounter [facility] Date(s): 11/15/19 - 11/15/[address] [address]- [facility] Encounter Diagnosis Depression (Final) - 11/15/19 Discharge Disposition: A-D/C Home Attending Physician: Jerry Cowart DO Admitting Physician: Jerry Cowart DO Referring Physician: Not on Staff, Referring [...] 2 PUFFS BY MOUTH TWICE A DAY, [facility]/pharmacy #0315 Start Date: 08/16/19 Status: OrderedhydrOXYzine pamoate [...] 16:09:00 EDT, Inhaler, Route to Pharmacy Electronically, [id number], [facility]/pharmacy #0315, ICD Code J45.20 Start Date: 04/09/18 Status: OrderedSEROquel 200 mg oral tablet 200 mg, 1, tablet, By Mouth, 2 times a day, # 60 tablet, Refills 5, Tot. Refills 5, Maintenance, 12/29/17 15:09:37, Route to Pharmacy Electronically, [id number], [facility]/pharmacy #0315 Start Date: 12/29/17 Stop Date: 06/27/18 Status: Orderedsertraline 100 mg oral tablet 1 tablet = 100 mg, By Mouth, Daily, # 30 tablet, 0 Refills, Maintenance, 06/26/19 17:17:27 EDT, Tablet Start Date: 06/26/19 Status: OrderedTopamax 50 mg oral tablet 1 tablet = 50 mg, By Mouth, Daily at bedtime, # 30 tablet, 4 Refills, Maintenance, 11/04/19 15:47:48EST, Tablet, [facility]/pharmacy #0315, 152, cm, 11/04/19 15:24:09 EST, Height, [...] Most recent to oldest [Reference Range]: 1 Oxygen Saturation [94-100 %] 100 % (11/15/19 10:35 AM) Pulse Rate [55-90 bpm] 88 bpm (11/15/19 10:35 AM) Blood Pressure [90-138/55-84 mm Hg] 95/63 mm Hg (11/15/19 10:35 AM) Respiratory Rate [16-30 br/min] 18 br/min (11/15/19 10:35 AM) Temperature [96.8-100.4 DegF] 97.7 DegF (11/15/19 10:35 AM) Mode of Delivery (Oxygen) Room air (11/15/19 10:35 AM) Blood pressure sites Arm, right (11/15/19 10:35 AM) Temperature Route Oral (11/15/19 10:35 AM) Social History Social History Type Response Smoking Status Current every day smoker; Ty pe: Cigarettes; Started at age: 45; entered on: 07/27/18 Sex
--- OUTSIDE RECORDS SUMMARY | 2022-10-10 10:11 | XMS_ITS | Continuity of Care Document ---
:1970 Author Organization [facility] Address [address] [place] [address]- Care Team Providers Name Role Phone Eusebio Payton DO Primary Care Physician Encounter [facility] Date(s): 10/01/20 - 10/01/[address] [address]- Discharge Disposition: Transferred [facility]term [facility] hospit Attending Physician: Sharmaine Alan MD Admitting Physician: Sharmaine Alan MD Referring Physician: Not on Staff, Referring MD Allergies, Adverse Reactions, Alerts Substance Reaction Severity Status ciprofloxacin Active Other Food Allergy swell up Active coconut oil Cymbalta lips and face swell Active penicillin swell up can't swallow Active Keflex full body swelling hives Active Latex rash all over Active Medications albuterol-ipratropium 3 mg-0.5 mg/3 ml [...] PUFFS BY MOUTH TWICE A DAY, [facility]/pharmacy #0315 Start Date: 08/16/19 Status: [...] 01/19/20 14:01:00 EST Start Date: 01/19/20 Status: OrderedProAir HFA 90 mcg/inh inhalation aerosol with adapter 180 mcg, 2, puffs, Inhalation, 4 times a day, PRN, # 1 each, Refills 11, Tot. Refills 11, Maintenance, 04/09/18 16:09:00 EDT, Inhaler, Route to Pharmacy Electronically, [id number], [facility]/pharmacy #0315, ICD Code J45.20 Start Date: 04/09/18 Status: OrderedSEROquel 200 mg oral tablet 200 mg, 1, tablet, By Mouth, 2 times a day, # 60 tablet, Refills 5, Tot. Refills 5, Maintenance, 12/29/17 15:09:37, Route to Pharmacy Electronically, [id number], [facility]/pharmacy #0315 Start Date: 12/29/17 Stop Date: 06/27/18 Status: Orderedtopiramate 50 mg oral tablet See Instructions, TAKE 1.5 TABLET BY MOUTH EVERYDAY AT BEDTIME, # 45 tablet, 6 Refills, 05/08/20 15:55:00 EDT, [facility], 152, cm, 04/16/20 5:09:00 EDT, Height, [...] [Reference Range]: Height 151 cm 151 cm (10/01/20 4:52 PM) (10/01/20 10:24 AM) Weight 100 kg (10/01/20 10:24 AM) Oxygen Saturation [94-100 98 % 96 % 100 % %] (10/01/20 4:52 PM) (10/01/20 12:18 PM) (10/01/20 10 :24 AM) Pulse Rate [55-90 bpm] 88 bpm 90 bpm 80 bpm (10/01/20 4:52 PM) (10/01/20 12:18 PM) (10/01/20 10 :24 AM) Blood Pressure 112/67 mm Hg 123/75 mm Hg 127/74 mm Hg [90-138/55-84 mm Hg] (10/01/20 4:52 PM) (10/01/20 12:18 PM) ( 10:24 AM) Respiratory Rate [16-30 16 br/min 18 br/min 18 br/mi n br/min] (10/01/20 4:52 PM) (10/01/20 12:18 PM) (10/01/20 10 :24 AM) Temperature [96.8-100.4 99.1 DegF 98.2 DegF DegF] (10/01/20 12:18 PM) (10/01/20 10:24 AM) Mode of Delivery (Oxygen) Room air Room air Room a ir (10/01/20 4:52 PM) (10/01/20 12:18 PM) (10/01/20 10 :24 AM) Blood pressure sites Arm, right Arm, right (11/9/20 4:52 PM) (10/01/20 10:24 AM) Temperature Route Temporal Oral (10/01/20 12:18 PM) (10/01/20 10:24 AM) Dry Weight 100 kg (10/01/20 10:24 AM) Weight Obtained Via Patient/family stated (10/01/20 10:24 AM) Social History Social History Type Response Smoking Status Former smoker, quit more delmar n 30 days ago entered on: 10/01/20 Sex
--- OUTSIDE RECORDS SUMMARY | 2022-10-10 10:11 | XMS_ITS | Continuity of Care Document ---
:1970 Author Organization [facility] Address [address] [place] [address]- Care Team Providers Name Role Phone Eusebio Payton DO Primary Care Physician Encounter [facility] Date(s): 04/10/22 - 04/17/22 [facility] [address] [place], [place] [address] Attending Physician: Robert Herrera MD Admitting Physician: Robert Herrera MD Referring Physician: Eusebio Payton DO Allergies, [...] Maintenance, 12/01/20 5:34:00 EST, ER Tablet, [facility]/pharmacy #0315, Partial fill upon patient request if the prescription is for a schedule II opioid drug., 173, cm, 12/01/20 3:52:00 ES... Start Date: 12/01/20 Stop Date: 12/08/20 Status: OrderedProAir HFA 90 mcg/inh inhalation aerosol with adapter 180 mcg, 2, puffs, Inhalation, 4 times a day, PRN, # 1 each, Refills 11, Tot. Refills 11, Maintenance, 04/09/18 16:09:00 EDT, Inhaler, Route to Pharmacy Electronically, [id number], [facility]/pharmacy #0315, ICD Code J45.20 Start Date: 04/09/18 [...] Maintenance, 12/29/17 15:09:37, Route to Pharmacy Electronically, [id number], [facility]/pharmacy #0315 Start Date: 12/29/17 Stop Date: 06/27/18 [...] recent to oldest [Reference Range]: 1 Height 150 cm (04/10/22 4:11 PM) Weight 58.51 kg (04/10/22 4:11 PM) Oxygen Saturation [94-100 %] 96 % (04/10/22 4:11 PM) Pulse Rate [55-90 bpm] 66 bpm (04/10/22 4:11 PM) Body Mass Index [18.5-24.99] 26 *H* (04/10/22 4:11 PM) Blood Pressure [90-138/55-84 mm Hg] 96/52 mm Hg (04/10/22 4:11 PM) Mode of Delivery (Oxygen) Room air (04/10/22 4:11 PM) Blood pressure sites Arm, right (04/10/22 4:11 PM) Weight Obtained Via Patient/family stated (04/10/22 4:11 PM) Social History Social History Type Response Smoking Status Former smoker, quit more [place] n 30 days ago entered on: 10/01/20 Sex
--- OUTSIDE RECORDS SUMMARY | 2022-10-10 10:11 | XMS_ITS | Continuity of Care Document ---
:1970 Author Organization [facility] Address [address] [place] [id number] Care Team Providers Name Role Phone Eusebio Payton DO Primary Care Physician Encounter [facility] [place] Date(s): 09/27/22 - 10/02/[address] [id number] Encounter Diagnosis Leg pain (Final) - 09/27/22 Discharge Disposition: A-Transfer SNF Attending Physician: Rory Renee MD Admitting Physician: Cecilia Carvalho MD Referring Physician: Not on Staff, Referring MD Allergies, Adverse Reactions, Alerts Substance Reaction Severity Status ciprofloxacin Active Keflex full body swelling hives Active Bee Stings Active Coconut Oil1 Active Latex rash all over Active Cymbalta lips and face swell Active penicillin swell up can't swallow Active 1pt reports her lips swelled after [...] Orderedmidodrine 5 mg oral tablet 5 mg, Tablet, By Mouth, 10/02/22 9:00:00 EST Start Date: 10/02/22 Stop Date: 10/02/22 Status: Completedmidodrine 5 mg oral tablet 5 mg, Tablet, By Mouth, 10/02/22 15:00:00 EST Start Date: 10/02/22 Stop Date: 10/02/22 Status: Completedmidodrine 5 mg oral tablet 5 mg, 1, tablet, By Mouth, 3 times a day, Refills 0, Maintenance, 09/27/22 12:12:00 EDT, Partial fill upon patient request if the prescription is for a schedule II opioid drug. Start Date: 09/27/22 Status: Orderednitrofurantoin macrocrystals-monohydrate 100 mg oral capsule 1 capsule = 100 mg, By Mouth, 2 times a day, for 7 days, # 14 capsule, 0 Refills, Acute 10/09/22 12:53:00 EST, 10/02/22 12:53:00 EST, Capsule, Partial fill upon patient request if the prescription is for a schedule II opioid drug. Start Date: 10/02/22 Stop Date: 10/09/22 Status: Orderedolanzapine 5 mg oral tablet TAKE [...] PRN Nausea, . Start Date: 04/21/22 Status: OrderedoxyCODONE 5 mg oral capsule 1 capsule = 5 mg, By Mouth, Every 6 hours, PRN for pain, for 3 days, # 12 capsule, 0 Refills, Acute 10/05/22 11:45:00 EST, 10/02/22 11:45:00 EST, Capsule, Partial fill upon patient request if the prescription is for a schedule II opioid drug. Start Date: 10/02/22 Stop Date: 10/05/22 Status: OrderedoxyCODONE 5 mg oral tablet 5 mg, Tablet, By Mouth, Every 6 hours, PRN for Pain , Severe, Routine, 09/27/22 19:11:00 EDT Start Date: 09/27/22 Stop Date: 10/03/22 Status: DiscontinuedProAir HFA 90 mcg/inh inhalation aerosol with adapter 180 mcg, 2, puffs, Inhalation, 4 times a day, PRN, # 1 each, Refills 11, Tot. Refills 11, Maintenance, 04/09/18 16:09:00 EDT, Inhaler, Route to Pharmacy Electronically, [id number], [facility]/pharmacy #[id number], ICD Code J45.20 Start Date: [...] 90 tablet, 11 Refills, 06/12/22 13:04:00 EDT, [facility]/pharmacy #[id number], please refill early, 154, cm, [...] Confirmed Active behavior Sleep apnea Confirmed Active Procedures Procedure Date Related Diagnosis Body Site Status Percutaneous skeletal fixation of 09/28/22 Completed femoral fracture, proximal end, neck1 1SN 7-0 andrea screws Results Orders for Microbiology Reports Name Date Urine Culture (URINE CULTURE) 09/29/22 Microbiology Reports TEST:Urine Culture STATUS:Auth (Verified) BODY SITE: SOURCE:URINE COLLECTED DATE/TIME:09/29/22 1:28 PMUrine Culture SPECIMEN DESCRIPTION : URINE CLEAN CATCH/MIDSTREAM SPECIAL REQUESTS : NONE Reflexed from [id number] CULTURE : >100,000 COL/ML ESCHERICHIA COLI These AST results were performed on the Microscan ID and AST system REPORT STATUS : FINAL 10/02/2022 ORGANISM >100,000 COL/ML ESCHERICHIA COLI These AST results were performed on the Microscan ID and AST system METHOD MIN. INHIB. CONC. (MCG/ML) AMPICILLIN RESISTANT AMPICILLIN/SULBACTAM RESISTANT AMOXICILLIN/CLAVULAN INTERMEDIATE CEFAZOLIN RESISTANT CEFEPIME SUSCEPTIBLE CEFTRIAXONE SUSCEPTIBLE CIPROFLOXACIN RESISTANT ERTAPENEM SUSCEPTIBLE GENTAMICIN SUSCEPTIBLE LEVOFLOXACIN RESISTANT MEROPENEM SUSCEPTIBLE NITROFURANTOIN SUSCEPTIBLE PIPERACILLIN/TAZOBAC SUSCEPTIBLE TRIMETH/SULFAMETHOX RESISTANT TETRACYCLINE SUSCEPTIBLERadiology Reports Exam Date Time Procedure Performing Provider Status 09/28/22 1:48 PM C-Arm < 1 Hour Michelle Hinkle; Auth (Verified ) Notes:(C-Arm < 1 Hour) Reason For Exam: Fracture, Right Hip PinningRESULT: C-Arm < 1 Hour PROCEDURE: Hip Comp 2 Views Right, C-Arm < 1 Hour CLINICAL INDICATION: 51 years old Female with Reason: Fracture, Right Hip Pinning. COMPARISONS: RIGHT femur radiographs and CT of yesterday [id number] woman me to call If RIGHT and Some Warping 1-year-old unit usually one mediastinal usually one mediastinal tube modulation and October gallbladder and then out the medial basilar segment of please take in formalin and the medial without oral volumen MLO view and is only that wasn't TECHNIQUE: Fluoroscopy support was provided in the operating room for the referring physician using the C-arm. There was no radiologist in attendance. This report is provided for documentation purposes. In addition, a total of eight views of the RIGHT hip in the frontal and frog lateral projections are obtained in the OR with the C-arm. Fluoroscopy time: 56.5 seconds. Technologist time: 40 minutes. FINDINGS: Three compression screws are noted traversing the known compacted RIGHT femoral mid cervical fracture ending within the RIGHT femoral head. IMPRESSION: 1. C-arm study performed in the OR. 2. ORIF of RIGHT femoral neck fracture. Thank you for allowing me to participate in the care of this patient. WSN: [id number] Ordering Physician: Corey Hinkle MD Dictated By: Yannick Grider MD Dictated Date/Time: 09/28/22 4:17 pm Reviewed By: Yannick Grider MD Signed By: Yannick Grider MD Signed Date/Time: 09/28/22 4:17 pm Transcribed By: DARRYL Transcribed Date/Time: 09/28/22 4:02 pm Exam Date Time Procedure Performing Provider Status 09/28/22 1:48 PM XR Hip Comp 2 Views Right Michelle Hinkle; Auth (Verified) Notes:(XR Hip Comp 2 Views Right) Reason For Exam: Fracture, Right Hip Pinning RESULT: Hip Comp 2 Views Right PROCEDURE: Hip Comp 2 Views Right, C-Arm < 1 Hour CLINICAL INDICATION: 51 years old Female with Reason: Fracture, Right Hip Pinning. COMPARISONS: RIGHT femur radiographs and CT of yesterday [id number] woman me to call If RIGHT and Some Warping 1-year-old unit usually one mediastinal usually one mediastinal tube modulation and October gallbladder and then out the medial basilar segment of please take in formalin and the medial without oral volumen MLO view and is only that wasn't TECHNIQUE: Fluoroscopy support was provided in the operating room for the referring physician using the C-arm. There was no radiologist in attendance. This report is provided for documentation purposes. In addition, a total of eight views of the RIGHT hip in the frontal and frog lateral projections are obtained in the OR with the C-arm. Fluoroscopy time: 56.5 seconds. Technologist time: 40 minutes. FINDINGS: Three compression screws are noted traversing the known compacted RIGHT femoral mid cervical fracture ending within the RIGHT femoral head. IMPRESSION: 1. C-arm study performed in the OR. 2. ORIF of RIGHT femoral neck fracture. Thank you for allowing me to participate in the care of this patient. WSN: [id number] Ordering Physician: Corey Hinkle MD Dictated By: Yannick Grider MD Dictated Date/Time: 09/28/22 4:17 pm Reviewed By: Yannick Grider MD Signed By: Yannick Grider MD Signed Date/Time: 09/28/22 4:17 pm Transcribed By: DARRYL Transcribed Date/Time: 09/28/22 4:02 pm Exam Date Time Procedure Performing Provider Status 09/27/22 9:[address] Ext Lower W/O Contrast Elham Maurice; Auth (Verified) Right Notes:(CT Ext Lower W/O Contrast Right) Reason For Exam: Fracture, hip;Fracture RESULT: CT Ext Lower W/O Contrast Right CT Ext Lower W/O Contrast Right Hx of Present Illness: Pt reports that she slipped and fell on wet floor injuring her entire right leg . pt denies head strike neck and back pain. Pt very non-specific about pain. Sts its burning .; Reason: Fracture; Fracture, hip; Clinical Question(s): Hip TECHNIQUE: Helical CT without contrast formatted in 3 planes. Weight-based protocol using automatic tube modulation was used to optimize exposure parameters. CTDIvol Body: 5.70 mGy, DLP Body: 150 mGy*cm. COMPARISONS: None FINDINGS: Bones and joints: Fracture of the right subcapital femoral neck with mild impaction. Mild osteoarthritis of right hip. Diffuse osteopenia. No other fracture. Soft Tissues: Diffuse anasarca. Hematoma along the posterior aspect of the right hip. IMPRESSION: Right subcapital femoral neck fracture. Small hematoma along the posterior aspect of the right hip. A critical result message (Document Only) has been communicated via the [employer] system on 09/27/2022 10:21 AM, Message ID [id number]. WSN: [id number] Ordering Physician: Vickie Ramos Dictated By: Ayush Oropeza MD Dictated Date/Time: 09/27/22 10:21 a Reviewed By: Ayush Oropeza MD Signed By: Ayush Oropeza MD Signed Date/Time: 09/27/22 10:21 am Transcribed By: DARRYL Transcribed Date/Time: 09/27/22 10:16 am Exam Date Time Procedure Performing Provider Status 09/27/22 7:55 AM Pelvis 1 or 2 Views Marialuisa Dawson; Danny (Kimberlyn ified) Notes:(Pelvis 1 or 2 Views) Reason For Exam: PainRESULT: Pelvis 1 or 2 Views Pelvis 1 or 2 Views Hx of Present Illness: Pt reports that she slipped and fell on wet floor injuring her entire right leg . pt denies head strike neck and back pain. Pt very non-specific about pain. Sts its burning .; Reason: Pain; Clinical Question(s): Fracture COMPARISON: None. FINDINGS: Possible overriding of cortex in the region of the right femoral neck. Normal hips and sacroiliac joints. Normal soft tissues. IMPRESSION: Possible fracture of the right femoral neck. Recommend CT for better evaluation. A critical result message (Document Only) has been communicated via the [employer] system on 09/27/2022 8:31 AM, Message ID [id number]. WSN: [id number] Ordering Physician: Elias Liu Dictated By: Ayush Oropeza MD Dictated Date/Time: 09/27/22 8:32 am Reviewed By: Ayush Oropeza MD Signed By: Ayush Oropeza MD Signed Date/Time: 09/27/22 8:32 am Transcribed By: DARRYL Transcribed Date/Time: 09/27/22 8:28 am Exam Date Time Procedure Performing Provider Status 09/27/22 7:55 AM XR Femur 2 Views Right Magdalena Dawson ( Verified) Notes:(XR Femur 2 Views Right) Reason For Exam: PainRESULT: Femur 2 Views Right Femur 2 Views Right, 4 views Hx of Present Illness: Pt reports that she slipped and fell on wet floor injuring her entire right leg . pt denies head strike neck and back pain. Pt very non-specific about pain. Sts its burning .; Reason: Pain; Clinical Question(s): Fracture COMPARISON: None. FINDINGS: No fracture, dislocation or bone lesion. Moderate osteoarthritis of the right knee. Normal soft tissues. IMPRESSION: No definite fracture, but if patient cannot be evaluate on the right hip recommend CT. WSN: [id number] Ordering Physician: Elias Liu Dictated By: Ayush Oropeza MD Dictated Date/Time: 09/27/22 8:25 am Reviewed By: Ayush Oropeza MD Signed By: Ayush Oropeza MD Signed Date/Time: 09/27/22 8:25 am Transcribed By: DARRYL Transcribed Date/Time: 09/27/22 8:21 am Exam Date Time Procedure Performing Provider Status 09/27/22 2:42 AM Tibia/Fibula 2 Views Right Kamran Stokes; Danny (Verified) Notes:(Tibia/Fibula 2 Views Right) Reason For Exam: with Pain;TraumaRESULT: Tibia/Fibula 2 Views Right Tibia/Fibula 2 Views Right Hx of Present Illness: Pt reports that she slipped and fell on wet floor injuring her entire right leg . pt denies head strike neck and back pain. Pt very non-specific about pain. Sts its burning .; Reason: Trauma; with Pain; Clinical Question(s): Fracture; Special Instructions: This is a protocol film and radiologist should call any findings to the Charge Nurse COMPARISON: 02/04/2020 FINDINGS: No fractures or bone lesions. Stress related thickening of the anterior and medial mcghee of the tibia. Visualized joints are normal. Normal soft tissues. IMPRESSION: No fracture. WSN: [id number] Ordering Physician: Joana Grady Dictated By: Ayush Oropeza MD Dictated Date/Time: 09/27/22 7:59 am Reviewed By: Ayush Oropeza MD Signed By: Ayush Oropeza MD Signed Date/Time: 09/27/22 7:59 am Transcribed By: DARRYL Transcribed Date/Time: 09/27/22 7:57 am Vital Signs Most recent to oldest 1 2 3 [Reference Range]: Oxygen Saturation [94-100 97 % 97 % 98 % %] (10/02/22 1:34 PM) (10/02/22 6:57 AM) (10/02/22 4:52 AM) Pulse Rate [55-90 bpm] 106 bpm 106 bpm 77 bpm *H* *H* (10/02/22 8:50 A M) (10/02/22 2:09 PM) (10/02/22 1:34 PM) Blood Pressure 91/65 mm Hg 91/65 mm Hg 96/58 mm Hg [90-138/55-84 mm Hg] (10/02/22 2:09 PM) (10/02/22 1:34 PM) (09/23 0 8:50 AM) Respiratory Rate [16-30 18 br/min 18 br/min 16 br/mi n br/min] (10/02/22 1:34 PM) (10/02/22 9:46 AM) (10/02/22 8:46 AM) Temperature [96.8-100.4 98.4 DegF 98 DegF 98.5 Deg F DegF] (10/02/22 1:34 PM) (10/02/22 6:57 AM) (10/02/22 4:52 AM) Liters per Minute 6 L/min (09/28/22 2:00 PM) Mode of Delivery (Oxygen) Room air Room air Room a ir (10/02/22 1:34 PM) (10/02/22 6:57 AM) (10/02/22 4:52 AM) Blood pressure sites Arm, right Arm, right Arm, right (10/02/22 1:34 PM) (10/02/22 6:57 AM) (10/02/22 4:52 AM) Temperature Route Oral Oral Oral (10/02/22 1:34 PM) (10/02/22 6:57 AM) (10/02/22 4:52 AM) Dry Weight 48.6 kg (09/28/22 12:02 PM) Dry Weight Obtained Via Patient/family stated (09/28/22 12:02 PM) Social History Social History Type Response Smoking Status Former smoker, quit more delmar n 30 days ago entered on: 10/01/20 Sex Admission evaluation note Rodney Nunez MD: PERFORM, MODIFY, MODIFY, MODIFY Event Display: Admission Note Authored Date: [id number] Patient: ??RAPHAEL FLORES ? Age:??51 Years?Sex:??Female?:??1970?? Chief Complaint/Reason for Consultation Right leg pain History of Present Illness The patient is a 51-year-old female with a past medical history of obstructive sleep apnea, PTSD, gastroesophageal reflux disease, depression, fibromyalgia, asthma, COPD, history of self mutilating behavior, severe protein malnutrition,??and history of recent DVT on rivaroxaban??who presents to the em ergency department after mechanical fall and was found to have a right subcapital femoral neck fracture with plan for orthopedic intervention tomorrow.?? Patient is being admitted to the hospital medicine service for further evaluation and management. ?? Patient was admitted to the hospital from April 21 to May 02, 2022 after she presented to [facility] with a fall and was found to have a left intertrochanteric femoral fracture.?? At the time, she was transferred to [facility] for further management and was found to have severe protein calorie malnutrition, hypoproteinemia, and anasarca.?? She was taken to the operating room by orthopedic surgery on April 22, 2022 and underwent left intramedullary implant.?? She was eventuallydischarged from the hospital on May 02, 2022.?? She reports that she follows up with orthopedic surgery as an outpatient underwent rehabilitation.?? She reports that she is not very active at baselineand walks around to some extent.?? She reports that she has significant mental health disorders which limits her.?? She reports that she was recently diagnosed with a deep venous thrombosis and also a pulmonary embolism at [facility] for which she was started on rivaroxaban.?? She has not entirely sure of the details of this.?? She reports that yesterday she was in her living room and she fell on a puddle onto her right side.?? She did reports that she did not strike her head or lose consciousness.?? She denies any preceding symptoms of dizziness, lightheadedness, palpitations, or chest di scomfort.?? She reports that she eventually presented to the emergency department to be further evaluated.?? She denied seizures or loss of bowel or bladder function. ?? In the emergency department, temperature 100.3, tachycardic with heart rate up to 100, respiratory rate 18, blood pressure 92/63, and saturating 100% room air.?? Lab work was notable for normocyticanemia with hemoglobin of 9.4, INR 1.3, electrolytes within normal limits, BUN 14, creatinine 0.5, calcium 7.8, total protein 4.3, albumin 2.6, ALP 206, AST 114, ALT 96, and COVID-19 testing negative.?? X-ray of the tibia and fibula on the right revealed no fracture.?? X-ray of the right femur revealed no definite fracture.?? X-ray of the right pelvis revealed possible fracture of the right femoral neck.?? CT of the right lower extremity revealed a right subcapital femoral neck fracture and a small h ematoma along the posterior aspect of the right hip.?? Patient was evaluated by orthopedic surgery and is planning for operative intervention tomorrow.?? [facility] and for medical clearance. Review of Systems Constitutional, Eye, Skin, Head/Neck, ENMT, Respiratory, Cardiovascular, Gastrointestinal, Endocrine, Musculoskeletal, Neurologic, Psych reviewed and negative except as noted in HPI. Objective Vital Signs?? Temperature: 98.4 DegF (09/27/22 15:18:00) Temperature Route: Oral (09/27/22 15:18:00) Pulse Rate:??94 bpm??High (09/27/22 15:18:00) Respiratory Rate: 18 br/min (09/27/22 16:41:00) Systolic Blood Pressure: 110 mm Hg (09/27/22 15:18:00) Diastolic Blood Pressure: 75 mm Hg (09/27/22 15:18:00) Blood pressure sites: Arm, left (09/27/22 15:18:00) Mean Arterial Pressure: 87 mm Hg (09/27/22 15:18:00) Pulse Pressure: 35 mm Hg (09/27/22 15:18:00) Oxygen Saturation: 98 % (09/27/22 15:18:00) Mode of Delivery (Oxygen): Room air (09/27/22 15:18:00) Early Warning Score: 1 (09/27/22 16:41:30) ?? Physical Exam General:??No apparent distress. Well nourished, appears stated age. Able to participate in a conversation. HEENT:??NCAT, EOMI, Sclera are anicteric. Moist oral mucosa. Neck:??Supple, No lymphadenopathy. No JVD. Cardiac:??Regular rate and rhythm, + S1, S2. No appreciable murmurs. PMI ND. Respiratory:??Clear to auscultation bilaterally without wheezes, rales or rhonchi. Abdomen:??Soft, nontender, non-distended, no abnormal BS, no HSM. Rectal exam deferred. Extremities:??Minimal shortening of right lower extremity as compared to left lower extremity.?? Tenderness to palpation of the right hip.?? Patient is unable to tolerate range of motion.?? Bilateral edema noted. Neurology:??No focal neurological deficits.?? Psych:??Appropriate affect. ? RESULT: CT Ext Lower W/O Contrast Right CT Ext Lower W/O Contrast Right? Hx of Present Illness: Pt reports that she slipped and fell on wet floor injuring her entire rightleg . ??pt denies head strike neck and back pain. ??Pt very non-specific about pain. ??Sts its burning .; Reason: Fracture; Fracture, hip; Clinical Question(s): Hip ?? TECHNIQUE: Helical CT without contrast formatted in 3 planes. Weight-based protocol using automatictube modulation was used to optimize exposure parameters.? CTDIvol Body: 5.70 mGy, ??DLP Body: 150 mGy*cm. ? COMPARISONS: None ?? FINDINGS: ?? Bones and joints: Fracture of the right subcapital femoral neck with mild impaction. Mild osteoarthritis of right hip. Diffuse osteopenia. No other fracture. ?? Soft Tissues: Diffuse anasarca. Hematoma along the posterior aspect of the right hip. ?? IMPRESSION: ?? Right subcapital femoral neck fracture. ?? Small hematoma along the posterior aspect of the right hip. ? A critical result message (Document Only) has been communicated via the [email or web address] system on 09/27/2022 10:21 AM, Message ID [id number]. WSN: [id number] ?? Assessment/Plan The patient is a 51-year-old female with a past medical history of obstructive sleep apnea, PTSD, gastroesophageal reflux disease, depression, fibromyalgia, asthma, COPD, history of self mutilating behavior, and history of recent DVT on rivaroxaban??who presents to the emergency department after mechanical fall and was found to have a right subcapital femoral neck fracture with plan for orthopedic intervention tomorrow.?? Patient is being admitted to the hospital medicine service for further evaluation and management. ?? Right subcapital femoral neck fracture Patient presented after a fall in March 2022 and was found to have a left intertrochanteric femoral fracture. She was taken to the operating room by orthopedic surgery on April 22, 2022 and underwent left intramedullary implant. She reports that she was recently diagnosed with a deep venous thrombosis and also pulmonary embolism at [facility] and was started on rivaroxaban, however history of this is not entirely clear from the patient. She reports that yesterday she was in her living room and fell on a puddle onto her right side. She did not strike her head or lose consciousness. She denied any preceding symptoms of dizziness, lightheadedness, palpitations, or chest discomfort.?? She reports that she eventually presented to the emergency department to be further evaluated. X-ray of the tibia and fibula on the right revealed no fracture.?? X-ray of the right femur revealed no definite fracture.?? X-ray of the right pelvis revealed possible fracture of the right femoral neck.?? CT of the right lower extremity revealed a right subcapital femoral neck fracture and a small hematoma along the posterior aspect of the right hip.?? Patient was evaluated by orthopedic surgery and is planning for operative intervention tomorrow. ?? Preoperative evaluation: Functional capacity: Patient functional capacity appears to be less than 4 METS.?? She denies any chest pain, dizziness, lightheadedness, or shortness of breath with activities that she performs. Cardiovascular Evaluation:?? Cardiovascular risk for perioperative complications is low for an??intermediate risk procedure. HerRCRI score is 3.9% (0 points)??and Gallo score is 0.2 %. She has no known CAD, CHF, arrhythmias, valvular disorders or high-degree AV block. She has a poor functional capacity and preop EKG was within normal limits. - Cardiac telemetry: is not indicated for this patient. Pulmonary Evaluation: ?? Risk for perioperative pulmonary complications: Low. Patient states she??used to have??a history ofOSA which has resolved since her bariatric surgery - Please encourage incentive spirometry and early ambulation. Frailty assessment: Using the clinical frailty score: Patient is Vulnerable with a score of 5-6 She is??not dependent on others for daily Medication Recommendations: ?? - Continue current home medication - Hold rivaroxaban at this time given recent DVT and this can be continued postoperatively after her surgical intervention. ?? Plan: - N.p.o. after midnight for surgery tomorrow - Strict nonweightbearing status - Oxycodone 5mg every 6 hours PRN pain - Preoperative evaluation as below - Hold rivaroxaban at this time and can resume as per orthopedic surgery ?? Depression PTSD (post-traumatic stress disorder) Self mutilating behavior Patient has a complex history of mental health conditions as described above. ?? Plan: - fluoxetine 20 mg daily -??lamotrigine 150 mg twice daily - olanzapine 5 mg daily at bedtime - risperidone 1 mg daily in the morning and 2 mg daily at bedtime - topiramate 25 mg daily in the morning 125 mg daily at bedtime - clonazepam 1 mg 3 times daily as needed ?? Severe protein calorie malnourished CT abdomen/pelvis from 04/2021 significant for Hepatomegaly and hepatic steatosis RUQ ultrasound from 02/2022 significant for increasing dilation of the CBD up to 13 mm but no ductalstone is identified She has a known history of severe protein calorie malnutrition. Her total protein level is 4.3 and albumin 2.6. Calcium level was 7.8. She has transaminitis with an ALP of 206, AST 114, ALT 96. She has previously seen nutrition in the past for this. Anasarca with hypoproteinemia secondary to severe protein calorie malnutrition ?? Plan: - Plastic Boat [employer] consult ?? History of DVT and pulmonary embolism as per patient Patient reports that she was admitted to [facility] and was found to have a lower extremity DVT and a pulmonary embolism. She reports that she has been placed on rivaroxaban which she has been taking compliantly. Unclear if this is provoked or unprovoked. She denies any prior history of atrial fibrillation. ?? Plan: - Hold rivaroxaban at this time and can resume as per orthopedic surgery ?? Chronic stable issues: Gastroesophageal reflux disease: Continue PPI Orthostatic hypotension: Continue midodrine 5 mg 3 times daily Asthma and COPD: Breo Ellipta, albuterol as needed, fluticasone nasal spray ?? Quality Measures DVT prophylaxis: Enoxaparin, atleast moderate risk Diet: Regular, n.p.o after midnight CODE STATUS: Full ?? Patient discussed with attending physician, Dr. Mejia. Histories Allergies ciprofloxacin? (Severity: Unknown severity, Onset: Unknown) penicillin? (Severity: Unknown severity, Onset: Unknown) ?Reactions: swell up can't swallow Latex? (Severity: Unknown severity, Onset: Unknown) ?Reactions: rash all over Keflex? (Severity: Unknown severity, Onset: Unknown) ?Reactions: full body swelling hives Cymbalta? (Severity: Unknown severity, Onset: Unknown) ?Reactions: lips and face swell Other Food Allergy? (Severity: Unknown severity, Onset: Unknown) ?Reactions: coconut oil, swell up ?? Past Medical History/Problem List Active Problems??(9) Asthma Asthma with COPD Depression Fibromyalgia GERD (gastroesophageal reflux disease) Leg pain PTSD (post-traumatic stress disorder) Self mutilating behavior Sleep apnea ?? Past Surgical History Treatment of intertrochanteric, peritrochanteric, or subtrochanteric femoral fracture; with intramedullary implant, with or without interlocking screws and/or cerclage: 04/22/22 Bilateral tubal ligation: 2006 Caesarean section Bilateral oophorectomy Laparoscopy, surgical, gastric restrictive procedure; longitudinal gastrectomy (ie, sleeve gastrectomy) Cryoablation ?? Social History Alcohol Details:??Use: Past. Details:??Use: Past. Details:??Use: Current. ??Frequency: 1-2 times per year. ??Type: Wine. Employment/School Details:??Status: Disabled. Exercise Details:??Regular exercise: No. Home/Environment Details:??Living situation: Home/Independent. ??Lives with: Alone. ??Risks in environment: Pets/Animal exposure. Nutrition/Health Details:??Diet: Regular. ??Feels highly stressed: Yes. Sexual Details:??Sexually involved in last 6 months: No. ??Ever been sexually involved? Yes. Substance Abuse Details:??Use: Never. Tobacco Details:??Use: Former smoker, quit more than 30 days ago. Details:??Use: Former smoker, quit more than 30 days ago. Details:??Current every day smoker, Type: Cigarettes. ??Started at age: 45 Years. ?? Family History Mother: Cancer; Mental illness; Thyroid disease Father: Diabetes mellitus type II; Melanoma; Mental illness; Myocardial infarction; Stroke Mat. Grandfather: Thyroid cancer? Sister: Mental health disorder; Seizure; Thyroid disease Medications Home Medications Albuterol (ProAir HFA 90 mcg/inh inhalation aerosol with adapter)?2?puff(s)?Inhalation?4 times a day?as needed?Wheezing/Shortness of Breath Ascorbic Acid (Vitamin C 250 mg oral tablet)?1?tab(s)?250?Milligram?By Mouth?Daily Atropine / Diphenoxylate (atropine-diphenoxylate 0.025 mg-2.5 mg oral tablet)?1?tab(s)?By Mouth?4 times a day bacillus coagulans-inulin (Probiotic Formula (Bacillus Coagulans) oral capsule)?1?capsule?By Mouth?Daily Cholecalciferol (Vitamin D3 50,000 intl units oral capsule)?1?capsule?1,250?Microgram?By Mouth?Every Thursday Cholestyramine (cholestyramine 4 gm/9 gm oral powder for reconstitution)?1?pack/packet?By Mouth?3 times a day Clonazepam (clonazePAM 1 mg oral tablet)?1?tab(s)?1?Milligram?By Mouth?3 times a day Cyanocobalamin (Vitamin B12 500 mcg oral tablet)?1?tab(s)?500?Microgram?By Mouth?Daily Fluoxetine?20?Milligram?By Mouth?Daily Fluticasone Nasal (fluticasone 50 mcg/inh nasal spray)?SPRAY 1 SPRAY INTO EACH NOSTRIL EVERY DAY Fluticasone-Salmeterol (Wixela Inhub 500 mcg-50 mcg inhalation powder)?1?inhalation?Inhalation?2 times a day?rinse mouth and throat after use Lamotrigine (lamotrigine 150 mg oral tablet)?1?tab(s)?150?Milligram?By Mouth?2 times a day Loperamide (loperamide 2 mg oral capsule)?2?Milligram?1?capsule?By Mouth?Every 4 hours?as needed?for loose stool Midodrine (midodrine 5 mg oral tablet)?5?Milligram?1?tablet?By Mouth?3 times a day Olanzapine (olanzapine 5 mg oral tablet)?TAKE 1/2-1 TABLET BY MOUTH ONCE DAILY AT BEDTIME NEEDED Omeprazole (omeprazole 40 mg oral enteric coated capsule)?1?capsule?40?Milligram?By Mouth?Daily Ondansetron (ondansetron 4 mg oral tablet)?1?tab(s)?4?Milligram?By Mouth?Every 8 hours?as needed?Nausea?. Risperidone (risperiDONE 2 mg oral tablet)?TAKE 1/2 TABLET BY MOUTH EVERY MORNING AND 1 TABLET AT BEDTIME rivaroxaban (Xarelto 20 mg oral tablet)?1?tab(s)?20?Milligram?By Mouth?Daily in PM Sucralfate (sucralfate 1 gm/10 ml oral suspension)?10?Milliliter?1?gram?By Mouth?4 times a day Thiamine (thiamine 100 mg oral tablet)?100?Milligram?1?tablet?By Mouth?Daily Topiramate (topiramate 50 mg oral tablet)?See Instructions?Take 1/2 tablet in the AM and 2 1/2 tablet at bedtime ? Inpatient Medications Medications (28) Active SCHEDULED: (16) Ascorbic Acid 250 mg Tablet (Vitamin C 250 mg oral tablet) ??250 mg, By Mouth, Daily Cholestyramine 4 gm Powder (5.7 gm t.w.) (Cholestyramine Powder) ??4 Gm, By Mouth, 3 times a day Clindamycin 600 mg/D5%W 50 mL (premix) (Clindamycin IVPB) ??600 mg 50 mL, IVPB, Once Fluoxetine 20 mg Capsule (FLUoxetine 20 mg oral capsule) ??20 mg, By Mouth, Daily Fluticasone Propionate 50mcg/inh Nasal [place] (fluticasone 50 mcg/inh nasal spray) ??50 mcg 1 sprays, Nares, Both, Daily LamoTRIGINE 100 mg Tablet (lamotrigine 100 mg oral tablet) ??150 mg, By Mouth, 2 times a day Midodrine 5 mg Tablet (midodrine 5 mg oral tablet) ??5 mg, By Mouth, 3 times a day NaCl 0.9% Flush 3ml (NaCL 0.9% Flush) ??3 mL, IV Push, Every 8 hours Olanzapine 5 mg Tablet (olanzapine 5 mg oral tablet) ??5 mg, By Mouth, Daily at bedtime Pantoprazole 40 mg EC Tablet (pantoprazole 40 mg oral delayed release tablet) ??40 mg, By Mouth, Daily Risperidone 1 mg Tablet (risperiDONE 1 mg oral tablet) ??1 mg, By Mouth, Daily in AM Risperidone 1 mg Tablet (risperiDONE 1 mg oral tablet) ??2 mg, By Mouth, Daily at bedtime Sucralfate 1 Gm Tablet (sucralfate 1 gm oral tablet) ??1 Gm, By Mouth, 3 times a day before meals and bedtime Thiamine 100 mg Tablet (thiamine 100 mg oral tablet) ??100 mg, By Mouth, Daily Topiramate 25 mg Tablet (Topiramate Tablet) ??25 mg, By Mouth, Daily in AM Topiramate 25 mg Tablet (Topiramate Tablet) ??125 mg, By Mouth, Daily at bedtime CONTINUOUS: (0) PRN: (12) Acetaminophen 325 mg Tablet (Acetaminophen Tablet) ??650 mg, By Mouth, Every 4 hours Albuterol 90mcg/Inhalation Inhaler HFA (albuterol CFC free 90 mcg/inh inhalation aerosol) ??180 mcg2 puffs, Inhalation, Every 4 hours Clonazepam 1 mg Tablet (clonazePAM 1 mg oral tablet) ??1 mg, By Mouth, 3 times a day Dextromethorphan-Guaifenesin 20 mg-200 mg/10 mL Liqu UD (Robitussin DM Liquid) ??10 mL, By Mouth, Every 4 hours Diphenoxylate/Atropine Tablet (atropine-diphenoxylate 0.025 mg-2.5 mg oral tablet) ??1 tablet, By Mouth, 4 times a day Loperamide 2 mg Capsule (loperamide 2 mg oral capsule) ??2 mg, By Mouth, Every 4 hours Melatonin 3 mg Tablet (Melatonin Tablet) ??3 mg, By Mouth, Daily at bedtime NaCl 0.9% Flush 3ml (NaCL 0.9% Flush) ??3 mL, IV Push, Every 8 hours OxyCODONE 5 mg IR Tablet (oxyCODONE 5 mg oral tablet) ??5 mg, By Mouth, Every 6 hours Polyethylene Glycol 17 Gm Powder (MiraLax Powder) ??17 Gm 1 pack/packet, By Mouth, Daily Senna 8.6 mg / Docusate 50 mg tablet (Docusate/Senna Tablet) ??1 tablet, By Mouth, 2 times a day Simethicone 80 mg Chewable Tablet (Simethicone Tablet) ??80 mg, Chew, 3 times a day?? Results Recent Labs BLOOD BANK Blood Type O Positive ()?? 09/27/2022 08:35 Antibody Screen Negative ()?? 09/27/2022 08:35 ?? BLOOD COUNT & DIFF WBC 10.5 k/mm3 ()?? 09/27/2022 09:14 RBC 3.10 m/mm3 (Low)?? 09/27/2022 09:14 Hgb 9.4 Gm/dL (Low)?? 09/27/2022 09:14 Hct 29.0 % (Low)?? 09/27/2022 09:14 MCV 93.5 femtoliters ()?? 09/27/2022 09:14 MCH 30.3 pg ()?? 09/27/2022 09:14 MCHC 32.4 g/dL (Low)?? 09/27/2022 09:14 Platelet Count 271 k/mm3 ()?? 09/27/2022 09:14 RDW-SD 57.6 femtoliters (High)?? 09/27/2022 09:14 MPV 9.4 femtoliters ()?? 09/27/2022 09:14 Nucleated RBC (Automated) 0.0 #/100 WBC'S ()?? 09/27/2022 09:14 Abs. NRBC 0.0 k/mm3 ()?? 09/27/2022 09:14 Abs. Neut 6.2 k/mm3 ()?? 09/27/2022 09:14 Abs. Lymph 3.3 k/mm3 (High)?? 09/27/2022 09:14 Abs. Blaine 0.9 k/mm3 ()?? 09/27/2022 09:14 Abs. Eo 0.0 k/mm3 ()?? 09/27/2022 09:14 Abs. Baso 0.0 k/mm3 ()?? 09/27/2022 09:14 Neut % 58.8 % ()?? 09/27/2022 09:14 Lymph % 31.3 % ()?? 09/27/2022 09:14 Blaine % 8.9 % ()?? 09/27/2022 09:14 Eos % 0.2 % ()?? 09/27/2022 09:14 Baso % 0.3 % ()?? 09/27/2022 09:14 Imm Gran 0.5 % ()?? 09/27/2022 09:14 Abs. Imm Gran 0.1 k/mm3 ()?? 09/27/2022 09:14 ?? CHEM GENERAL Sodium 135 mmol/L ()?? 09/27/2022 08:54 Potassium 3.8 mmol/L ()?? 09/27/2022 08:54 Chloride 104 mmol/L ()?? 09/27/2022 08:54 Bicarbonate Level 24 mmol/L ()?? 09/27/2022 08:54 Anion Gap 7 ()?? 09/27/2022 08:54 Glucose Level 72 mg/dL ()?? 09/27/2022 08:54 BUN 14 mg/dL ()?? 09/27/2022 08:54 Creatinine-Blood 0.5 mg/dL ()?? 09/27/2022 08:54 Estimated GFR Creatinine 115 ML/MIN/1.73 M2 ()?? 09/27/2022 08:54 Calcium 7.8 mg/dL (Low)?? 09/27/2022 08:54 Protein, Total 4.3 Gm/dL (Low)?? 09/27/2022 08:54 Albumin 2.6 Gm/dL (Low)?? 09/27/2022 08:54 AG Ratio 1.5 ()?? 09/27/2022 08:54 Alkaline Phosphatase 206 units/L (High)?? 09/27/2022 08:54 AST (SGOT) 114 units/L (High)?? 09/27/2022 08:54 ALT (SGPT) 96 units/L (High)?? 09/27/2022 08:54 Bilirubin, Total 0.7 mg/dL ()?? 09/27/2022 08:54 ?? COAG INR 1.3 (High)?? 09/27/2022 08:54 Protime (PT) 13.3 seconds (High)?? 09/27/2022 08:54 APTT 35.7 seconds (High)?? 09/27/2022 08:54 ?? VIROLOGY COVID-19 POC Result NEGATIVE ()?? 09/26/2022 21:54 ? Jackie REAL, Sergey Muñoz: PERFORM Event Display: Admission Note Authored Date: Attending Attestation:??I have reviewed the data and interviewed and examined??the patient.?I have discussed their case and management with the resident/fellow and agree with the findings and plan as documented in the note above. ?? EKG study Event Display: ECG 12-Lead Authored Date: Please click on pdf link to open report Event Display: ECG 12-Lead Authored Date: Ventricular Rate: 79 BPM Atrial Rate: 79 BPM P-R Interval: 150 ms QRS Duration: 70 ms Q-T Interval: 388 ms QTC Calculation(Bazett): 444 ms P Hazard: 54 degrees R Hazard: 33 degrees T Hazard: 22 degrees Sinus rhythm with Premature atrial complexes Low voltage QRS Borderline ECG When compared with ECG of 27-SEP-2022 17:45, MANUAL COMPARISON REQUIRED, DATA IS UNCONFIRMED Confirmed by JONATAN CHAUDHARI MD ([id number]) on 09/28/2022 7:09:51 PM [place]: JONATAN CHAUDHARI MD Event Display: ECG 12-Lead Authored Date: Please click on pdf link to open report Event Display: ECG 12-Lead Authored Date: Ventricular Rate: 97 BPM Atrial Rate: 97 BPM P-R Interval: 136 ms QRS Duration: 66 ms Q-T Interval: 362 ms QTC Calculation(Bazett): 459 ms P Hazard: 68 degrees R Hazard: 34 degrees T Hazard: 30 degrees Sinus rhythm with Premature supraventricular complexes Low voltage QRS Nonspecific ST and T wave abnormality Abnormal ECG When compared with ECG of 21-APR-2022 10:25, No significant change was found Confirmed by FARA REAL JONATAN ([id number]) on 09/28/2022 7:09:56 PM [place]: FARA REAL,[facility] Progress note Farheen Sanford RN: PERFORM, MODIFY, SIGN, VERIFY Event Display: Progress Note Hospital Authored Date: Patient: RAPHAEL FLORES Age: 51 years Sex: Female : 1970 Associated Diagnoses: None Author: Farheen Sanford RN Findings Problem Related to Alteration in Musculoskeletal : Alteration in Musculoskeletal Func/new 10/02/2022 9:00 EST Alteration in Musculoskeletal Related to Fracture, Mobility, Orthopedic Procedure, Other: s/p pinning of R hip with Dr. Hinkle 09/28 Goals & Outcomes, Musculoskeletal Affected extremity will maintain color/motion/sensation, Pt will report acceptable level of comfort/pain relief Interventions, Musculoskeletal Monitor patients ambulation status, monitor Color/Motion/Sensation, Assist with repositioning, Encourage deep breathing & coughing exercises, Notify MD immediately if tissue perfusion deteriorates, Obtain assistive devices as needed, Teach & Encourage use of Incentive spirometer, Teach Pt/caregiver on ADL's & adaptive equipment, Teach Pt/caregiver on exercises, Teach pt/caregiver on use of pain scale, Teach Pt/caregiver complications of immobility, Teach Pt/caregiver techniques to increase mobility, Teach Pt/caregiver on safety precautions, Incision care as ordered BH Goals/Interventions, Musculoskeletal Yes Musculoskeletal, Problem Start 09/27/2022 18:10 Reviewed Plan with, Musculoskeletal Patient Patient Progression, Musculoskeletal Pt progressing according to plan . Nursing Data Vital Signs : VITAL SIGNS SECTION 10/02/2022 11:31 EST Early Warning Score 0.00 10/02/2022 9:00 EST Temperature 97.9 DegF (Preliminary) Temperature Route Oral (Preliminary) Pulse Rate 77 bpm (Preliminary) Respiratory Rate 16 br/min (Preliminary) Systolic Blood Pressure 96 mm Hg (Preliminary) Diastolic Blood Pressure 58 mm Hg (Preliminary) Oxygen Saturation 100 % (Preliminary) 10/02/2022 8:53 EST Early Warning Score 1.00 10/02/2022 8:53 EST Early Warning Score 1.00 10/02/2022 8:50 EST Pulse Rate 77 bpm Systolic Blood Pressure 96 mm Hg Diastolic Blood Pressure 58 mm Hg 10/02/2022 8:46 EST Respiratory Rate 16 br/min 10/02/2022 6:58 EST Early Warning Score 1.00 10/02/2022 6:57 EST Temperature 98 DegF Temperature Route Oral Pulse Rate 75 bpm Respiratory Rate 18 br/min Systolic Blood Pressure 91 mm Hg Diastolic Blood Pressure 59 mm Hg Blood pressure sites Arm, right Mean Arterial Pressure 70 mm Hg Pulse Pressure 32 mm Hg Oxygen Saturation 97 % Mode of Delivery (Oxygen) Room air . Evaluation Patient A & O x 4. States pain 07/02 with prn oxycodone given with no effect. Patient resting comfortably. Ice given with R LE elevated. Bandaid dressing on R hip CDI. Up with one assist and w/w with corrective cueing for safe transfers and walker/step sequencing. Takes few steps to commode, stretcher with mod A of 1. Denies CP, SOB. Lungs CTA. Encouraged hourly usage of [employer] [place]. C/o nausea. IV zofran given as ordered. Abd SRNT, +BS. LBM 09/30/22. Voiding Conc cloudy urine. C-Boots and Xarelto for DVT prophylaxis. Safety checks completed. Bed in lowest locked position with call oshea within reach. Alarm on for safety. Hourly rounding. Consult with manager contract, Bettina Rueda RN, patient to be discharged to [facility] via ambulance @ 14:00. Report called to [facility] 3, dischage unit. Patient positioned on stretcher, with all belongings and transported by hospital personnel.. Discharge Information Rehabilitation Discharge : Rehab Discharge Index 10/02/2022 8:31 EST Walker: distance < 10 09/30/2022 9:12 EST Walker: distance < 10 09/29/2022 14:47 EST Comments on treatment indicated 51 y.o. F with PMH including PTSD, fibromyalgia,COPD, hx of self multilating behavior, severe protein malnutrition. Presented after a fall, R femur fracture, s/p R hip pinning (09/28, Hinkle). TDWB R LE, no hopping. fall risk, 2 assist recommended. Distance pt will ambulate 5' with walker, maintaining TDWB R LE Full chart review completed Yes Hospital course see comment Other findings Other findings Plan of care PT Gait training, Transfer training, Therapeutic exercise, Functional Activities, Balance training, Neuromuscular educationFerArchana Berry: PERFORM, SIGN, VERIFY, MODIFY, SIGN Event Display: Progress Note Hospital Authored Date: Patient: RAPHAEL FLORES Age: 51 years Sex: Female : 1970 Associated Diagnoses: None Author: Archana Reinoso Findings Problem Related to Alteration in Musculoskeletal : Alteration in Musculoskeletal Func/new 10/02/2022 3:00 EST Alteration in Musculoskeletal Related to Fracture, Mobility, Orthopedic Procedure, Other: s/p pinning of R hip with Dr. Hinkle 09/28 Goals & Outcomes, Musculoskeletal Affected extremity will maintain color/motion/sensation, Pt will report acceptable level of comfort/pain relief Interventions, Musculoskeletal Monitor patients ambulation status, monitor Color/Motion/Sensation, Assist with repositioning, Encourage deep breathing & coughing exercises, Notify MD immediately if tissue perfusion deteriorates, Obtain assistive devices as needed, Teach & Encourage use of Incentive spirometer, Teach Pt/caregiver on ADL's & adaptive equipment, Teach Pt/caregiver on exercises, Teach pt/caregiver on use of pain scale, Teach Pt/caregiver complications of immobility, Teach Pt/caregiver techniques to increase mobility, Teach Pt/caregiver on safety precautions BH Goals/Interventions, Musculoskeletal Yes Musculoskeletal, Problem Start 09/27/2022 18:10 Reviewed Plan with, Musculoskeletal Patient Patient Progression, Musculoskeletal Pt progressing according to plan . Nursing Data Vital Signs : VITAL SIGNS SECTION 10/01/2022 20:18 EST Temperature 98.2 DegF Temperature Route Oral Pulse Rate 73 bpm Respiratory Rate 18 br/min Systolic Blood Pressure 90 mm Hg Diastolic Blood Pressure 61 mm Hg Blood pressure sites Arm, right Mean Arterial Pressure 71 mm Hg Pulse Pressure 29 mm Hg Oxygen Saturation 98 % Mode of Delivery (Oxygen) Room air . Narrative/Incidental Pt s/p R hip pinning with Dr. Hinkle on 09/28, POD#3. Pt A+Ox3, denies CP or SOB. Lungs clear but diminished, IS teaching provided and encouraged 10x/hour, patient demonstrated with good effort. Pt tolerating regular diet, abdomen s/nt/nd, +BS4Q, LBM 09/30. Pt with purewick in place draining cyu. Bandaidto R hip, c/d/i. +CMS +DF +PF +PP to RLE. Reddened sacral area, mepliex applied for skin protection.pt frequently repositioned. Pt max assist with OOB. Pt reporting 8/10 pain this PM, medicated with oxy 5 mg +effect. Pt educated on all multimedia editor, pt verbalized understanding. Pt educated on safety andfall precautions. Call oshea within reach. Rapid covid swab performed in antcipated in discharge to rehab tomorrow.. Evaluation Pt with nausea at beginning of shift, TSANLEY Haas notified, orders for IV zofran initiated and administered with +effect.. Discharge Information Case Management Discharge Plan : Case Management Discharge Plan Data 10/01/2022 13:31 EST Discharge Level of Care at Discharge penitentiary facility Discharge Nursing Homes/Rehab Facilities [facility] Discharge Transportation Arranged [facility] [address] [place] [address] Mode of Transportation Arranged Ambulance Name of Agency #[address] [place] [address] [facility] [employer] # Service Categories #1 Occupational Therapy, Physical Therapy, Penitentiary Service Comments #1 You are being transferred to [facility] via [facility]. Rehabilitation Discharge : Rehab Discharge Index 09/30/2022 9:12 EST Walker: distance < 10 09/29/2022 14:47 EST Comments on treatment indicated 51 y.o. F with PMH including PTSD, fibromyalgia,COPD, hx of self multilating behavior, severe protein malnutrition. Presented after a fall, R femur fracture, s/p R hip pinning (09/28, Hinkle). TDWB R LE, no hopping. fall risk, 2 assist recommended. Distance pt will ambulate 5' with walker, maintaining TDWB R LE Full chart review completed Yes Hospital course see comment Other findings Other findings Plan of care PT Gait training, Transfer training, Therapeutic exercise, Functional Activities, Balance training, Neuromuscular educationRory Renee MD: PERFORM Event Display: Progress Note Hospital Authored Date: Patient: ??RAPHAEL FLORES ? Age:??51 Years?Sex:??Female?:??1970?? Subjective Patient was seen and examined today at bedside Status post??fracture surgery fracture??right femur neck. Review of Systems Complaint of pain??on the outpatient side Complete review of system negative except mentioned above Objective Vital Signs?? Temperature: 97.6 DegF (10/01/22 14:54:00) Temperature Route: Oral (10/01/22 14:54:00) Pulse Rate: 77 bpm (10/01/22 14:54:00) Respiratory Rate: 18 br/min (10/01/22 14:54:00) Systolic Blood Pressure: 96 mm Hg (10/01/22 14:54:00) Diastolic Blood Pressure: 65 mm Hg (10/01/22 14:54:00) Blood pressure sites: Arm, right (10/01/22 14:54:00) Mean Arterial Pressure: 75 mm Hg (10/01/22 14:54:00) Pulse Pressure: 31 mm Hg (10/01/22 14:54:00) Oxygen Saturation: 100 % (10/01/22 14:54:00) Mode of Delivery (Oxygen): Room air (10/01/22 14:54:00) Early Warning Score: 3 (10/01/22 14:55:06) ? Intake/Output? 09/27 10:29 10/01 07:00 09/30 07:00 09/29 07:00 09/28 07:00 ?? 10/01 17:09 10/01 17:09 10/01 06:59 09/30 06:59 09/29 06:59 Intake ? 3935 ?840 ?600 ? 1820 ?615 Output ? 5050 ?550 ? 1300 ? 2050 ?550 Net Total ?-1115 ?290 ? -700 ? -230 ? 65 ? Urine Count ?6 ?1 ?2 ?0 ?3 ? Physical Exam General: ??PERRLA, NAD, Moist mucus membranes Neck: No JVD, no carotid bruit CVS: Regular S1 S2, No M/R/G Resp: CTAB, no crepitations or wheezing Abdo: Soft, NT, ND, NABS, no organomegaly, no masses UNDERWRITING ANALYST: AO x 3, No focal neurological deficits. Extremities: Right anterolateral hip dressing, clean/dry/intact,??no edema, peripheral pulses palpable. Results Recent Labs BLOOD COUNT & DIFF WBC 12.9 k/mm3 (High)?? 10/01/2022 00:31 RBC 3.99 m/mm3 (Low)?? 10/01/2022 00:31 Hgb 11.9 Gm/dL ()?? 10/01/2022 00:31 Hct 36.4 % ()?? 10/01/2022 00:31 MCV 91.2 femtoliters ()?? 10/01/2022 00:31 MCH 29.8 pg ()?? 10/01/2022 00:31 MCHC 32.7 g/dL (Low)?? 10/01/2022 00:31 Platelet Count 192 k/mm3 ()?? 10/01/2022 00:31 RDW-SD 42.1 femtoliters ()?? 10/01/2022 00:31 MPV 10.0 femtoliters ()?? 10/01/2022 00:31 Nucleated RBC (Automated) 0.0 #/100 WBC'S ()?? 10/01/2022 00:31 Abs. NRBC 0.0 k/mm3 ()?? 10/01/2022 00:31 Abs. Neut 11.3 k/mm3 (High)?? 10/01/2022 00:31 Abs. Lymph 0.8 k/mm3 ()?? 10/01/2022 00:31 Abs. Blaine 0.7 k/mm3 ()?? 10/01/2022 00:31 Abs. Eo 0.0 k/mm3 ()?? 10/01/2022 00:31 Abs. Baso 0.0 k/mm3 ()?? 10/01/2022 00:31 Neut % 87.5 % (High)?? 10/01/2022 00:31 Lymph % 6.3 % (Low)?? 10/01/2022 00:31 Blaine % 5.5 % ()?? 10/01/2022 00:31 Eos % 0.1 % ()?? 10/01/2022 00:31 Baso % 0.2 % ()?? 10/01/2022 00:31 Imm Gran 0.4 % ()?? 10/01/2022 00:31 Abs. Imm Gran 0.1 k/mm3 ()?? 10/01/2022 00:31 ?? CARDIAC Troponin T Quant <0.01 ng/mL ()?? 09/30/2022 00:55 ?? CHEM GENERAL Sodium 141 mmol/L ()?? 10/01/2022 00:31 Potassium 4.1 mmol/L ()?? 10/01/2022 00:31 Chloride 108 mmol/L (High)?? 10/01/2022 00:31 Bicarbonate Level 25 mmol/L ()?? 10/01/2022 00:31 Anion Gap 8 ()?? 10/01/2022 00:31 Glucose Level 71 mg/dL ()?? 10/01/2022 00:31 BUN 7 mg/dL ()?? 10/01/2022 00:31 Creatinine-Blood 0.5 mg/dL ()?? 10/01/2022 00:31 Estimated GFR Creatinine 116 ML/MIN/1.73 M2 ()?? 10/01/2022 00:31 Calcium 7.8 mg/dL (Low)?? 10/01/2022 00:31 Vitamin B12 Level 705 pg/mL ()?? 09/30/2022 00:55 Folic Acid Level 14.2 ng/mL ()?? 09/30/2022 00:55 Iron Level 33 mcg/dL ()?? 09/30/2022 00:55 Iron Binding Capacity, Unsaturated 87 mcg/dL (Low)?? 09/30/2022 00:55 Iron Binding Capacity, Estimated Total 120 mcg/dL (Low)?? 09/30/2022 00:55 % Iron Saturation 28 % ()?? 09/30/2022 00:55 Ferritin Level 252 ng/mL ()?? 09/30/2022 00:55 ?? ENDOCRINE/TUMOR MARKER TSH 1.68 uIU/mL ()?? 09/30/2022 00:55 Cortisol Level 7.5 ??g/dL ()?? 10/01/2022 00:31 ?? IMMUNOLOGY GENERAL Transferrin 88 mg/dL (Low)?? 09/30/2022 00:55 ? Assessment/Plan ??51 yo F with complex PMH including COPD, DEMETRIA, PTSD, recent [facility], anticoagulated with Xarelto. She presents to [facility] status post mechanical fall was found to have a right femoral fracture plan for OR later today. ?? Right femoral neck fracture (S72.009A):??Closed subcapital proximal right femur fracture?? After mechanical fall ??Underwent ORIF of the right femoral neck fracture with pinning and screws Touchdown weightbearing, right lower extremity Continue Xarelto, recently started for DVT/PE??at [facility] Orthopedics plan dressing??removel today ? Personal history of DVT (deep vein thrombosis) (Z86.718 and PE :?? pt states diagnosed with a DVT/PE at [facility] about 2 to 3 weeks ago post ORIF?? , restarted on xarelto ?? Atypical chest pain (R07.89):?? non anginal, EKG showed no ischemic changes will check trop in AM (nto done previouslY) ?Anemia???has been chronic, normocytic Check iron and iron binding capacity and B12 and folate levels ??Monitor ? Orthostatic hypotension (I95.1):?? Continue midodrine She had??hypotension today,Systolic BP in the 70s, was given a liter of IV fluid, subsequently improved Was started on midodrine recently at [facility] as per patient Continue midodrine ??No signs of sepsis, she did complain of dysuria, obtain UA UA positive for significant pyuria, will start Abx. has multiple drug allergies.?? Will f/u culture.Will give bactrim for now. She also has recently been on Ciprofloxacin outpatient. ??(unlikely to have true allergy to quinolones) ? Malnourished (E46): ??Nutrition consult? Depression PTSD (post-traumatic stress disorder) Self mutilating behavior Patient has a complex history of mental health conditions as described above. Continue - fluoxetine 20 mg daily -??lamotrigine 150 mg twice daily - olanzapine 5 mg daily at bedtime - risperidone 1 mg daily in the morning and 2 mg daily at bedtime - topiramate 25 mg daily in the morning 125 mg daily at bedtime - clonazepam 1 mg 3 times daily as needed ?? Malnutrition CT abdomen/pelvis from 04/2021 significant for Hepatomegaly and hepatic steatosis RUQ ultrasound from 02/2022 significant for increasing dilation of the CBD up to 13 mm but no ductal stone is identified She has a known history of severe protein calorie malnutrition. Her total protein level is 4.3 and albumin 2.6. Calcium level was 7.8. ???She has history of duodenal switch??for morbid obesity, subsequently lost 100 pounds ?? Chronic GERD (K21.9):?? Continue PPI ?? 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 Asthma (J45.909):?? Continue Breo, fluticasone ?? Depression (F32.A): ??Continue fluoxetine, lamotrigine olanzapine, risperidone, ?? VTE Prophylaxis:??Lovenox transitioned to outpatient xarelto ?VTE Prophylaxis Assessment:??VTE Prophylaxis Ordered ?? Code Status:??Full ?Order Code Status:??Code Status Ordered ?? OMN???Ortho following Once stabilized for BP Note Erin Maguire RN: PERFORM Event Display: Discharge/Transfer Note Hospital Authored Date: [id number] Nursing Discharge Note Entered On: 10/02/2022 13:57 EST Performed On: 10/02/2022 13:56 EST by Erin Maguire RN Nursing Discharge Note 2 Discharge Time : 10/02/2022 14:15 EST Erin Maguire RN - 10/02/2022 14:23 EST Discharge Level of Care at Discharge : penitentiary facility Discharge Nursing Homes/Rehab Facilities : [facility] Patient Left Unit Via : Ambulance Patient Accompanied Off Unit with : Ambulance/Chair Van Personnel Handover Given to Transport Personnel : Yes DC Instructions Provided & Signed by Pt : Yes Patient Understands D/C Instructions : Yes Verbalized Understanding of D/C Plan By : Patient Patient Instructions Discharge Signed : Yes Did Pt have Specialty Bed or Wound Vac : Luz Maguire RN, Erin Moyer - 10/02/2022 13:56 Jon REAL, Rory: PERFORM, MODIFY, MODIFY Event Display: Discharge/Transfer Note Hospital Authored Date: Patient: ??RAPHAEL FLORES ? Age:??51 Years?Sex:??Female?:??1970?? 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 _ Discharge Medications Albuterol (ProAir HFA 90 mcg/inh inhalation aerosol with adapter)?2?puff(s)?Inhalation?4times a day?as needed?Wheezing/Shortness of Breath Ascorbic Acid (Vitamin C 250 mg oral tablet)?1?tab(s)?250?Milligram?By Mouth?Daily Atropine / Diphenoxylate (atropine-diphenoxylate 0.025 mg-2.5 mg oral tablet)?1?tab(s)?By Mouth?4 times a day bacillus coagulans-inulin (Probiotic Formula (Bacillus Coagulans) oral capsule)?1?capsule?By Mouth?Daily Cholecalciferol (Vitamin D3 50,000 intl units oral capsule)?1?capsule?1,250?Microgram?By Mouth?Every Thursday Cholestyramine (cholestyramine 4 gm/9 gm oral powder for reconstitution)?1?pack/packet?By Mouth?3 times a day Clonazepam (clonazePAM 1 mg oral tablet)?1?tab(s)?1?Milligram?By Mouth?3 times a day?for 3?Days Cyanocobalamin (Vitamin B12 500 mcg oral tablet)?1?tab(s)?500?Microgram?By Mouth?Daily Fluoxetine?20?Milligram?By Mouth?Daily Fluticasone Nasal (fluticasone 50 mcg/inh nasal spray)?SPRAY 1 SPRAY INTO EACH NOSTRIL EVERY DAY Fluticasone-Salmeterol (Wixela Inhub 500 mcg-50 mcg inhalation powder)?1?inhalation?Inhalation?2 times a day?rinse mouth and throat after use Lamotrigine (lamotrigine 150 mg oral tablet)?1?tab(s)?150?Milligram?By Mouth?2 times a day Loperamide (loperamide 2 mg oral capsule)?2?Milligram?1?capsule?By Mouth?Every 4 hours?as needed?for loose stool Midodrine (midodrine 5 mg oral tablet)?5?Milligram?1?tablet?By Mouth?3 times a day Nitrofurantoin (nitrofurantoin macrocrystals-monohydrate 100 mg oral capsule)?1?capsule?100?Milligram?By Mouth?2 times a day?for 7?Days Olanzapine (olanzapine 5 mg oral tablet)?TAKE 1/2-1 TABLET BY MOUTH ONCE DAILY AT BEDTIME NEEDED Omeprazole (omeprazole 40 mg oral enteric coated capsule)?1?capsule?40?Milligram?By Mouth?Daily Ondansetron (ondansetron 4 mg oral tablet)?1?tab(s)?4?Milligram?By Mouth?Every 8 hours?as needed?Nausea?. Oxycodone (oxyCODONE 5 mg oral capsule)?1?capsule?5?Milligram?By Mouth?Every 6 hours?as needed?for pain?for 3?Days Risperidone (risperiDONE 2 mg oral tablet)?TAKE 1/2 TABLET BY MOUTH EVERY MORNING AND 1 TABLET ATBEDTIME rivaroxaban (Xarelto 20 mg oral tablet)?1?tab(s)?20?Milligram?By Mouth?Daily in PM Sucralfate (sucralfate 1 gm/10 ml oral suspension)?10?Milliliter?1?gram?By Mouth?4times a day Thiamine (thiamine 100 mg oral tablet)?100?Milligram?1?tablet?By Mouth?Daily Topiramate (topiramate 50 mg oral tablet)?See Instructions?Take 1/2 tablet in the AM and 2 1/2tablet at bedtime ? Medications Started oxycodone and Clonapam script given to the nurse to give to patient for three days. Medications Discontinued Na Doses Changed NA Allergies Allergies ?(Active and Proposed Allergies Only) Bee Stings? (Severity: Unknown severity, Onset: Unknown) Coconut Oil? (Severity: Unknown severity, Onset: Unknown) ?Comments: pt reports her lips swelled after using coconut oil on them ciprofloxacin? (Severity: Unknown severity, Onset: Unknown) penicillin? (Severity: Unknown severity, Onset: Unknown) ?Reactions: swell up can't swallow Latex? (Severity: Unknown severity, Onset: Unknown) ?Reactions: rash all over Keflex? (Severity: Unknown severity, Onset: Unknown) ?Reactions: full body swelling hives Cymbalta? (Severity: Unknown severity, Onset: Unknown) ?Reactions: lips and face swell ? Future Appointments 2021 2:00 PM EST ?? With: Mira ALFARO, Vitor Barfield Where: [facility] [address] [place] [address] [address] [place] [address]- Hospital Course 51 yo F with complex PMH including COPD, DEMETRIA, PTSD, recent DVT/PE diagnosed about 2 to 3 weeks ago at [facility], anticoagulated with Xarelto. She presents to [facility] status post mechanical fall was found to have a right femoral fracture plan for OR later today. ?? Right femoral neck fracture (S72.009A):??Closed subcapital proximal right femur fracture?? After mechanical fall Underwent ORIF of the right femoral neck fracture with pinning and screws Touchdown weightbearing, right lower extremity Continue Xarelto, recently started for DVT/PE??at [facility] Weight bearing??therapy as per PT??and ortho recommendation She will benefit from??short-term rehab??less than 30 days??to gain her power. ?? #history of DVT (deep vein thrombosis) (Z86.718 and PE :?? pt states diagnosed with a DVT/PE at [facility] about 2 to 3 weeks ago post ORIF?? , restarted on xarelto ?? #Atypical chest pain (R07.89):?? non anginal, EKG showed no ischemic changes will check trop in AM (nto done previouslY) ?#Anemia???has been chronic, normocytic Check iron and iron binding capacity and B12 and folate levels ??Monitor ? #Orthostatic hypotension Continue midodrine She had??hypotension today,Systolic BP in the 70s, was given a liter of IV fluid, subsequently improved Was started on midodrine recently at [facility] as per patient Continue midodrine 5 mg Q8hr ??No signs of sepsis, she did complain of dysuria, obtain UA UA positive for significant pyuria, was on bactrim but resistant to bactrim Will send her on nitrofurantoin which is sensitive as per culture report ? Malnourished (E46): ??Nutrition consult? Depression PTSD (post-traumatic stress disorder) Self mutilating behavior Patient has a complex history of mental health conditions as described above. Continue - fluoxetine 20 mg daily -??lamotrigine 150 mg twice daily - olanzapine 5 mg daily at bedtime ( didn't send but continue) - risperidone 1 mg daily in the morning and 2 mg daily at bedtime - topiramate 25 mg daily in the morning 125 mg daily at bedtime - clonazepam 1 mg 3 times daily as needed ?? Malnutrition CT abdomen/pelvis from 04/2021 significant for Hepatomegaly and hepatic steatosis RUQ ultrasound from 02/2022 significant for increasing dilation of the CBD up to 13 mm but no ductal stone is identified She has a known history of severe protein calorie malnutrition. Her total protein level is 4.3 and albumin 2.6. Calcium level was 7.8. ???She has history of duodenal switch??for morbid obesity, subsequently lost 100 pounds ?? Chronic GERD (K21.9):?? Continue PPI ?? 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 Asthma (J45.909):?? Continue Breo, fluticasone ?? Depression (F32.A): ??Continue fluoxetine, lamotrigine olanzapine, risperidone ?? Plan of care explained to the patient, she verbalized understanding and agrees to it Objective Patient was treated for fracture??right femoral neck,??treated for UTI, need to take nitrofurantoin for 7 more days.?? Discharging to??subacute rehab??for??less than 30-days. ? Measurements?? Dry Weight: 48.6 kg (09/28/22) ?? Vital Signs?? Temperature: 98 DegF (10/02/22 06:57:00) Temperature Route: Oral (10/02/22 06:57:00) Pulse Rate: 77 bpm (10/02/22 08:50:00) Respiratory Rate: 16 br/min (10/02/22 08:46:00) Systolic Blood Pressure: 96 mm Hg (10/02/22 08:50:00) Diastolic Blood Pressure: 58 mm Hg (10/02/22 08:50:00) Blood pressure sites: Arm, right (10/02/22 06:57:00) Mean Arterial Pressure: 70 mm Hg (10/02/22 06:57:00) Pulse Pressure: 32 mm Hg (10/02/22 06:57:00) Oxygen Saturation: 97 % (10/02/22 06:57:00) Mode of Delivery (Oxygen): Room air (10/02/22 06:57:00) Early Warning Score: 1 (10/02/22 08:53:40) ? . Physical Exam General: ??PERRLA, NAD, Moist mucus membranes Neck: No JVD, no carotid bruit CVS: Regular S1 S2, No M/R/G Resp: CTAB, no crepitations or wheezing Abdo: Soft, NT, ND, NABS, no organomegaly, no masses UNDERWRITING ANALYST: AO x 3, No focal neurological deficits. Extremities: Right anterolateral hip dressing, clean/dry/intact,??no edema, peripheral pulses palpable. Surgical Procedures Percutaneous Pinning Hip 09/28/2022 13:21 Pending Results Add On Lab Order ordered on 09/30/2022 COVID-19 (2019 Novel Coronavirus) PCR ordered on 10/02/2022 Follow-Up Appointments Added Follow Up ?Time Frame ?Comments Eusebio Payton DO?1 week: call to discuss follow up visit Patient Instructions DIAGNOSIS: Leg pain, fall ? TEST RESULTS: X-rays of your right femur, right hip, right knee, right ankle, and right lower leg are all reassuring without signs of fractures or dislocations. ? Your specific PATIENT CARE INSTRUCTIONS (what to do / when to return): You were seen in the emergency room today after a fall at home.?? Your x-rays are reassuring as above.?? Given this you are deemed appropriate for discharge home.?? You will likely be sore in the coming days.?? Please utilize Tylenol/Motrin as needed for pain control.?? If any point your symptoms worsen, please return to the ED for further evaluation.?? We recommend routine follow-up with your primary care physician. ? MEDICATIONS (what medications you should start (or stop) taking): Tylenol/Motrin as needed for pain control. Results Discharge Labs BLOOD BANK Blood Type O Positive ()?? 09/27/2022 08:35 Antibody Screen Negative ()?? 09/27/2022 08:35 ?? BLOOD COUNT & DIFF WBC 7.4 k/mm3 ()?? 10/02/2022 00:34 RBC 3.09 m/mm3 (Low)?? 10/02/2022 00:34 Hgb 9.2 Gm/dL (Low)?? 10/02/2022 00:34 Hct 29.7 % (Low)?? 10/02/2022 00:34 MCV 96.1 femtoliters ()?? 10/02/2022 00:34 MCH 29.8 pg ()?? 10/02/2022 00:34 MCHC 31.0 g/dL (Low)?? 10/02/2022 00:34 Platelet Count 227 k/mm3 ()?? 10/02/2022 00:34 RDW-SD 62.0 femtoliters (High)?? 10/02/2022 00:34 MPV 10.3 femtoliters ()?? 10/02/2022 00:34 Nucleated RBC (Automated) 0.0 #/100 WBC'S ()?? 10/02/2022 00:34 Abs. NRBC 0.0 k/mm3 ()?? 10/02/2022 00:34 Abs. Neut 3.4 k/mm3 ()?? 10/02/2022 00:34 Abs. Lymph 3.3 k/mm3 (High)?? 10/02/2022 00:34 Abs. Blaine 0.5 k/mm3 ()?? 10/02/2022 00:34 Abs. Eo 0.1 k/mm3 ()?? 10/02/2022 00:34 Abs. Baso 0.0 k/mm3 ()?? 10/02/2022 00:34 Neut % 46.4 % ()?? 10/02/2022 00:34 Lymph % 44.6 % (High)?? 10/02/2022 00:34 Blaine % 6.9 % ()?? 10/02/2022 00:34 Eos % 1.0 % ()?? 10/02/2022 00:34 Baso % 0.4 % ()?? 10/02/2022 00:34 Imm Gran 0.7 % ()?? 10/02/2022 00:34 Abs. Imm Gran 0.1 k/mm3 ()?? 10/02/2022 00:34 ?? CARDIAC Troponin T Quant <0.01 ng/mL ()?? 09/30/2022 00:55 ? CHEM GENERAL Sodium 139 mmol/L ()?? 10/02/2022 00:34 Potassium 4.4 mmol/L ()?? 10/02/2022 00:34 Chloride 108 mmol/L (High)?? 10/02/2022 00:34 Bicarbonate Level 23 mmol/L ()?? 10/02/2022 00:34 Anion Gap 8 ()?? 10/02/2022 00:34 Glucose Level 60 mg/dL (Low)?? 10/02/2022 00:34 BUN 9 mg/dL ()?? 10/02/2022 00:34 Creatinine-Blood 0.6 mg/dL ()?? 10/02/2022 00:34 Estimated GFR Creatinine 111 ML/MIN/1.73 M2 ()?? 10/02/2022 00:34 Calcium 7.9 mg/dL (Low)?? 10/02/2022 00:34 Phosphorus 3.6 mg/dL ()?? 10/02/2022 00:34 Magnesium 1.8 mg/dL ()?? 10/02/2022 00:34 Protein, Total 4.3 Gm/dL (Low)?? 09/27/2022 08:54 Albumin 2.6 Gm/dL (Low)?? 09/27/2022 08:54 AG Ratio 1.5 ()?? 09/27/2022 08:54 Alkaline Phosphatase 206 units/L (High)?? 09/27/2022 08:54 AST (SGOT) 114 units/L (High)?? 09/27/2022 08:54 ALT (SGPT) 96 units/L (High)?? 09/27/2022 08:54 Bilirubin, Total 0.7 mg/dL ()?? 09/27/2022 08:54 Vitamin B12 Level 705 pg/mL ()?? 09/30/2022 00:55 Folic Acid Level 14.2 ng/mL ()?? 09/30/2022 00:55 Iron Level 33 mcg/dL ()?? 09/30/2022 00:55 Iron Binding Capacity, Unsaturated 87 mcg/dL (Low)?? 09/30/2022 00:55 Iron Binding Capacity, Estimated Total 120 mcg/dL (Low)?? 09/30/2022 00:55 % Iron Saturation 28 % ()?? 09/30/2022 00:55 Ferritin Level 252 ng/mL ()?? 09/30/2022 00:55 ?? COAG INR 1.3 (High)?? 09/27/2022 08:54 Protime (PT) 13.3 seconds (High)?? 09/27/2022 08:54 APTT 35.7 seconds (High)?? 09/27/2022 08:54 ? ENDOCRINE/TUMOR MARKER TSH 1.68 uIU/mL ()?? 09/30/2022 00:55 Cortisol Level 7.5 ??g/dL ()?? 10/01/2022 00:31 ?? HEME OTHER Hold Lavender Top SPECIMEN DISCARDED AFTER 24 HOURS. ()?? 09/28/2022 10:24 ? IMMUNOLOGY GENERAL Transferrin 88 mg/dL (Low)?? 09/30/2022 00:55 ? MISC. CHEMISTRY Hold Gel Top SPECIMEN DISCARDED AFTER 1 WEEK ()?? 09/28/2022 10:24 ? UA/URINALYSIS Appear/Color, Urine YELLOW ()?? 09/29/2022 13:28 Clarity TURBID (Abnormal)?? 09/29/2022 13:28 Specific Sanford, Urine 1.012 ()?? 09/29/2022 13:28 pH, Urine 5.5 ()?? 09/29/2022 13:28 Albumin, Urine NEGATIVE ()?? 09/29/2022 13:28 Glucose, Urine NEGATIVE ()?? 09/29/2022 13:28 Ketones, Urine NEGATIVE ()?? 09/29/2022 13:28 Bilirubin, Urine NEGATIVE ()?? 09/29/2022 13:28 Hemoglobin, Urine TRACE (Abnormal)?? 09/29/2022 13:28 Nitrite, Urine NEGATIVE ()?? 09/29/2022 13:28 Leukocyte, Urine 3+ (Abnormal)?? 09/29/2022 13:28 Urobilinogen NORMAL mg/dL ()?? 09/29/2022 13:28 WBC's, Urine >182 /HPF (High)?? 09/29/2022 13:28 RBC's, Urine 17 /HPF (High)?? 09/29/2022 13:28 Bacteria SLIGHT HPF (Abnormal)?? 09/29/2022 13:28 Squamous Epith 13 /HPF (High)?? 09/29/2022 13:28 Transitional Epith 9 /HPF ()?? 09/29/2022 13:28 Calcium Oxal HEAVY /HPF ()?? 09/29/2022 13:28 Mucus SLIGHT /LPF ()?? 09/29/2022 13:28 Culture Indication CULTURE INDICATED ()?? 09/29/2022 13:28 ?? VIROLOGY COVID-19 by RT-PCR NEGATIVE ()?? 10/02/2022 00:43 COVID-19 PCR Specimen Source NASAL ()?? 09/29/2022 02:00 COVID-19 PCR Result NEGATIVE ()?? 09/29/2022 02:00 COVID-19 POC Result NEGATIVE ()?? 09/26/2022 21:54 ? Imaging(s) ?C-Arm < 1 Hour ?? 09/28/2022 13:48??by Yannick Grider MD ?1. C-arm study performed in the OR. 2. ORIF of RIGHT femoral neck fracture. ?Pelvis 1 or 2 Views ?? 09/27/2022 07:55??by Ayush Oropeza MD ? Possible fracture of the right femoral neck. Recommend CT for better evaluation. ?? A critical result message (Document Only) has been communicated via the [employer] system on 09/27/2022 8:31 AM, Message ID [id number]. WSN: [id number] ?CT Ext Lower W/O Contrast Right ?? 09/27/2022 09:42??by Ayush Oropeza MD ? _ minutes spent on discharge Jeannie Rueda RN: PERFORM, SIGN, VERIFY Event Display: Case Management Discharge Plan Authored Date: Patient: RAPHAEL FLORES Age: 51 years Sex: Female : 1970 Associated Diagnoses: None Author: Jeannie Rueda RN Discharge Plan Case Management Discharge Plan : Case Management Discharge Plan Data 10/01/2022 13:31 EST Discharge Level of Care at Discharge penitentiary facility Discharge Nursing Homes/Rehab Facilities [facility] Discharge Transportation Arranged [facility] [address] [facility] Discharge Arranged Transport Date/Time 10/02/2022 14:00 Mode of Transportation Arranged Ambulance Name of Agency #[address], [place] Agency Heater Operator Helper # Service Categories #1 Occupational Therapy, Physical Therapy, Penitentiary Service Start Date and Time #1 10/02/2022 14:00 Service Comments #1 You are being transferred to [facility] via [facility].Andrez GERMAN, Erin Moyer: PERFORM Event Display: Patient Education/Instruction Authored Date: Inpatient Adult Discharge Instructions [address] [address] Name: RAPHAEL FLORES : 1970 Visit: 09/27/2022 10:29:00 Current Date: 10/02/2022 13:57 Account: [id number] Inpatient Adult Discharge Instructions We would like to thank you for allowing us to assist you with your healthcare needs. The following includes patient education materials and information regarding your injury/illness. Our entire staff strives to provide an excellent experience for our patients and their families. PLEASE ENSURE YOU FOLLOW-UP PER THE INSTRUCTIONS BELOW! ?? YOUR OPINION IS IMPORTANT TO US! Please complete the survey you may receive by mail or email. Your feedback will be used to make improvements to the healthcare experiences of our patients and their families. Surveys are administered by [employer] ?? If further treatment with your primary care physician or another doctor is recommended, it is important for you to keep the appointment. Call your primary care physician or return to the Emergency Department immediately if your condition worsens, fails to improve, or new symptoms develop. If you need to find a doctor, you can call [facility] for a referral at [phone] or toll free at [phone]) or log in to [email or web address].. ?? You can view and manage your care through the patient portal or by using a health care angela of your choosing. [email or web address] is a website that allows you to securely view your medical information including your hospital discharge summary, office visit summaries, medications and follow-up visits. You can also request appointments, renew medications, and request access to your medical information using a health care angela of your choosing, or just ask a question. You can enroll at [email or web address] or register during your next office visit. You have been discharged from [facility], Patient Care Unit: S3. If you have any questions regarding these instructions after you leave, please call us and we will be happy to assist you. [facility] Your Care Team Attending Physician Thelma REAL, Rory Consulting Providers Arin REAL, Corey Discharging Providers Thelma REAL, Rory Reason for Admission fall at 2:30 pm. fell onto right leg. did not hit head, no loc. normal edema to legs with no trauma. hx of afib. no other complaints besides right leg pain. Your Diagnosis Leg pain Femoral neck fracture Personal history of DVT (deep vein thrombosis) Atypical chest pain Orthostatic hypotension Malnourished Chronic GERD Asthma COPD with asthma Depression Garden grade I closed subcapital fracture of proximal end of right femur Osteoporotic fracture of right hip Tests Performed Below is a partial list of the tests performed during your hospitalization. You may have had other tests and procedures not included in this list. Please discuss all test results with your provider. B12 Vitamin Level BASIC METABOLIC PANEL BUN Calcium Level CBC CBC w/ Differential Comprehensive Metabolic Panel Cortisol Level COVID-19 (NOVEL CORONAVIRUS), PCR COVID-19 RNA POC Creatinine Electrolytes Ferritin Folic Acid Level Glucose Level HOLD GEL TUBE HOLD LAVENDER TUBE Iron + Iron Binding Capacity Lytes Mg Level Phosphorus Level Potassium Level PT (INR) PTT Transferrin Troponin T Quant TSH WITH REFLEX TO FT4 Type and Screen Urinalysis Complete/Reflex Culture CT Ext Lower W/O Contrast Right XR C-Arm < 1 Hour XR Femur 2 Views Right XR Hip Comp 2 Views Right XR Pelvis 1 or 2 Views XR Tibia/Fibula 2 Views Right Primary Care Provider Eusebio Payton DO Advance Directive Health Care Proxy on File Yes - Health Care Proxy No qualifying data available. Discharge Vitals Temperature: 98.4 DegF Pulse Rate:??106 bpm??High Respiratory Rate: 18 br/min Systolic Blood Pressure: 91 mm Hg Diastolic Blood Pressure: 65 mm Hg Oxygen Saturation: 97 % Studies Pending All tests and labs ordered during this hospital stay have been completed unless listed below. Pleasediscuss all pending results with your provider listed above in these instructions. ?? Add On Lab Order COVID-19 (2019 Novel Coronavirus) PCR What to do next Instructions From Your Doctor DIAGNOSIS: Leg pain, fall ? TEST RESULTS: X-rays of your right femur, right hip, right knee, right ankle, and right lower leg are all reassuring without signs of fractures or dislocations. ? Your specific PATIENT CARE INSTRUCTIONS (what to do / when to return): You were seen in the emergency room today after a fall at home.?? Your x-rays are reassuring as above.?? Given this you are deemed appropriate for discharge home.?? You will likely be sore in the coming days.?? Please utilize Tylenol/Motrin as needed for pain control.?? If any point your symptoms worsen, please return to the ED for further evaluation.?? We recommend routine follow-up with your primary care physician. ? MEDICATIONS (what medications you should start (or stop) taking): Tylenol/Motrin as needed for pain control. Discharge Orders Scheduled Follow-Up Appointments 2021 2:00 PM EST ?? With: Mira ALFARO, Vitor Barfield Where: [place] [address]- You Need to Schedule the Following Appointments Follow Up with??Eusebio Payton DO When??Within 1 week: call to discuss follow up visit Where: [address] [place] [address] [address] [place] [address]- Discharge Medications RAPHAEL FLORES :1970 Visit Date:09/27/2022 Medications: Please continue your medications until treatment is completed or stopped by your provider. Medications not listed below should be discontinued. Discuss any questions related to medications with your provider. What How Much When Instructions Next Dose New Nitrofurantoin (nitrofurantoin macrocrystals-monohydrate 100 mg oral capsule) 1 capsule Oral Twice a day Duration: 7 Days 10/02 tonight New Oxycodone (oxyCODONE 5 mg oral capsule) 1 capsule Oral Every 6 hours as needed for for pain Duration: 3 Days Printed Prescription as needed, last dose at 9am on 10/02 Changed Clonazepam (clonazePAM 1 mg oral tablet) 1 tab(s) Oral 3 times a day Duration: 3 Days Printed Prescription 10/02 at 8pm Changed Risperidone (risperiDONE 2 mg oral tablet) TAKE 1/ 2 TABLET BY MOUTH EVERY MORNING AND 1 TABLET AT BEDTIME ?? 10/02 at 8pm Unchanged Albuterol (ProAir HFA 90 mcg/ inh inhalation aerosol with adapter) 2 puff(s) Inhalation 4 times a day as needed for Wheezing/Shortness of Breath as needed Unchanged Ascorbic Acid (Vitamin C 250 mg oral tablet) 1 tab(s) Oral Daily 10/03 in am Unchanged Atropine / Diphenoxylate (atropine-diphenoxylate 0.025 mg-2.5 mg oral tablet) 1 tab(s) Oral 4 times a day resume home schedule, was not ordered while in hospital Unchanged bacillus coagulans-inulin (Probiotic Formula (Bacillus Coagulans) oral capsule) 1 capsule Oral Daily 10/03 in am Unchanged Cholecalciferol (Vitamin D3 50,000 intl units oral capsule) 1 capsule Oral Every Sunday 10/07 Unchanged Cholestyramine (cholestyramine 4 gm/ 9 gm oral powder for reconstitution) 1 pack/packet Oral 3 times a day 10/02 at 3pm Unchanged Cyanocobalamin (Vitamin B12 500 mcg oral tablet) 1 tab(s) Oral Daily 10/03 in am Unchanged Fluoxetine 20 Milligram Oral Daily 10/03 in am Unchanged Fluticasone Nasal (fluticasone 50 mcg/ inh nasal spray) SPRAY 1 SPRAY INTO EACH NOSTRIL EVERY DAY ?? 10/03 in am Unchanged Fluticasone-Salmeterol (Wixela Inhub 500 mcg-50 mcg inhalation powder) 1 inhalation Inhalation Twice a day rinse mouth and throat after use ?? 10/02 tonight Unchanged Lamotrigine (lamotrigine 150 mg oral tablet) 1 tab(s) Oral Twice a day 10/02 tonight Unchanged Loperamide (loperamide 2 mg oral capsule) 1 capsule Oral Every 4 hours as needed for for loose stool as needed Unchanged Midodrine (midodrine 5 mg oral tablet) 1 tab(s) Oral 3 times a day 10/02 at 8pm Unchanged Olanzapine (olanzapine 5 mg oral tablet) TAKE 1/ 2-1 TABLET BY MOUTH ONCE DAILY AT BEDTIME NEEDED ?? as needed Unchanged Omeprazole (omeprazole 40 mg oral enteric coated capsule) 1 capsule Oral Daily 10/03 in am Unchanged Ondansetron (ondansetron 4 mg oral tablet) 1 tab(s) Oral Every 8 hours as needed for Nausea . ?? as needed Unchanged rivaroxaban (Xarelto 20 mg oral tablet) 1 tab(s) Oral Daily in PM 10/02 at 5pm Unchanged Sucralfate (sucralfate 1 gm/ 10 ml oral suspension) 10 Milliliter Oral 4 times a day 10/02 at 4pm Unchanged Thiamine (thiamine 100 mg oral tablet) 1 tab(s) Oral Daily 10/03 in am Unchanged Topiramate (topiramate 50 mg oral tablet) See instructions Take 1/ 2 tablet in the AM and 2 1/ 2 tablet at bedtime ?? 10/02 tonight ?? What How Much When Comments Stop Taking Acetaminophen (acetaminophen 325 mg oral tablet) 3 tab(s) Oral Every 8 hours as needed for Pain , Mild Stop Taking Albuterol/ Ipratropium (albuterol-ipratropium 3 mg-0.5 mg/ 3 ml inhalation solution) 3 Milliliter Inhalation 4 times a day Stop Taking formoterol-mometasone (Dulera 200 mcg-5 mcg/ inh inhalation aerosol) 2 puff(s) Inhalation Twice a day Stop Taking HydrOXYzine (hydrOXYzine hydrochloride 25 mg oral tablet) TAKE 1 TABLET BY MOUTH 3 TIMES A DAY NEEDED *TAKE PRIOR TO NEEDED CLONAZEPAM* ?? Test Results Below is a partial list of the most recent Laboratory test results done prior to this discharge. You may have had other tests and procedures not included in this list. Please discuss all test results with your provider. B12 Vitamin Level (09/30/2022) ???Vitamin B12 Level - 705 pg/mL BASIC METABOLIC PANEL (10/02/2022) ???Sodium - 139 mmol/L???Potassium - 4.4 mmol/L???Chloride - 108 mmol/L???Bicarbonate Level - 23 mmol/L???Anion Gap - 8???Glucose Level - 60 mg/dL???BUN - 9 mg/dL???Creatinine-Blood - 0.6 mg/dL???Estimated GFR Creatinine - 111 ML/MIN/1.73 M2???Calcium - 7.9 mg/dL BUN (10/01/2022) ???BUN - 7 mg/dL Calcium Level (10/01/2022) ???Calcium - 7.8 mg/dL CBC (09/29/2022) ???WBC - 8.4 k/mm3???RBC - 2.77 m/mm3???Hgb - 8.4 Gm/dL???Hct - 26.1 %???MCV - 94.2 femtoliters???MCH - 30.3 pg???MCHC - 32.2 g/dL???Platelet Count - 215 k/mm3???RDW-SD - 59.1 femtoliters???MPV - 9.9 femtoliters???Nucleated RBC (Automated) - 0.0 #/100 WBC'S???Abs. NRBC - 0.0 k/mm3 CBC w/ Differential (10/02/2022) ???WBC - 7.4 k/mm3???RBC - 3.09 m/mm3???Hgb - 9.2 Gm/dL???Hct - 29.7 %???MCV - 96.1 femtoliters???MCH - 29.8 pg???MCHC - 31.0 g/dL???Platelet Count - 227 k/mm3???RDW-SD - 62.0 femtoliters???MPV - 10.3 femtoliters???Nucleated RBC (Automated) - 0.0 #/100 WBC'S???Abs. NRBC - 0.0 k/mm3???Abs. Neut - 3.4 k/ mm3???Abs. Lymph - 3.3 k/mm3???Abs. Blaine - 0.5 k/mm3???Abs. Eo - 0.1 k/mm3???Abs. Baso - 0.0 k/mm3???Neut % - 46.4 %???Lymph % - 44.6 %???Blaine % - 6.9 %???Eos % - 1.0 %???Baso % - 0.4 %???Imm Gran - 0.7 %???Abs. Imm Gran - 0.1 k/mm3 Comprehensive Metabolic Panel (09/27/2022) ???Sodium - 135 mmol/L???Potassium - 3.8 mmol/L???Chloride - 104 mmol/L???Bicarbonate Level - 24 mmol/L???Anion Gap - 7???Glucose Level - 72 mg/dL???BUN - 14 mg/dL???Creatinine-Blood - 0.5 mg/dL???Estimated GFR Creatinine - 115 ML/MIN/1.73 M2???Calcium - 7.8 mg/dL???Protein, Total - 4.3 Gm/dL???Albumin - 2.6 Gm/dL???AG Ratio - 1.5???Alkaline Phosphatase - 206 units/L???AST (SGOT) - 114 units/L???ALT (SGPT) - 96 units/L???Bilirubin, Total - 0.7 mg/dL Cortisol Level (10/01/2022) ???Cortisol Level - 7.5 ??g/dL COVID-19 (NOVEL CORONAVIRUS), PCR (10/02/2022) ???COVID-19 by RT-PCR - NEGATIVE COVID-19 RNA POC (09/26/2022) ???COVID-19 POC Result - NEGATIVE Creatinine (10/01/2022) ???Creatinine-Blood - 0.5 mg/dL???Estimated GFR Creatinine - 116 ML/MIN/1.73 M2 Electrolytes (10/01/2022) ???Sodium - 141 mmol/L???Potassium - 4.1 mmol/L???Chloride - 108 mmol/L???Bicarbonate Level - 25 mmol/L???Anion Gap - 8 Ferritin (09/30/2022) ???Ferritin Level - 252 ng/mL Folic Acid Level (09/30/2022) ???Folic Acid Level - 14.2 ng/mL Glucose Level (10/01/2022) ???Glucose Level - 71 mg/dL HOLD GEL TUBE (09/28/2022) ???Hold Gel Top - SPECIMEN DISCARDED AFTER 1 WEEK HOLD LAVENDER TUBE (09/28/2022) ???Hold Lavender Top - SPECIMEN DISCARDED AFTER 24 HOURS. Iron + Iron Binding Capacity (09/30/2022) ???Iron Level - 33 mcg/dL???Iron Binding Capacity, Unsaturated - 87 mcg/dL???Iron Binding Capacity, Estimated Total - 120 mcg/dL???% Iron Saturation - 28 % Lytes (09/29/2022) ???Sodium - 138 mmol/L???Potassium - 2.9 mmol/L???Chloride - 106 mmol/L???Bicarbonate Level - 23 mmol/L???Anion Gap - 9 Mg Level (10/02/2022) ???Magnesium - 1.8 mg/dL Phosphorus Level (10/02/2022) ???Phosphorus - 3.6 mg/dL Potassium Level (09/29/2022) ???Potassium - 4.8 mmol/L PT (INR) (09/27/2022) ???INR - 1.3???Protime (PT) - 13.3 seconds PTT (09/27/2022) ???APTT - 35.7 seconds Transferrin (09/30/2022) ???Transferrin - 88 mg/dL Troponin T Quant (09/30/2022) ? ?Troponin T Quant - <0.01 ng/mL TSH WITH REFLEX TO FT4 (09/30/2022) ???TSH - 1.68 uIU/mL Type and Screen (09/27/2022) ???Blood Type - O Positive???Antibody Screen - Negative Urinalysis Complete/Reflex Culture (09/29/2022) ???Appear/Color, Urine - YELLOW???Clarity - TURBID???Specific [place]ford, Urine - 1.012???pH, Urine - 5.5???Albumin, Urine - NEGATIVE???Glucose, Urine - NEGATIVE???Ketones, Urine - NEGATIVE???Bilirubin, Urine - NEGATIVE???Hemoglobin, Urine - TRACE???Nitrite, Urine - NEGATIVE???Leukocyte, Urine - 3+???Urobilinogen - NORMAL? ?WBC's, Urine - >182 /HPF? ?RBC's, Urine - 17 /HPF? ?Bacteria - SLIGHT? ?Squamous Epith - 13 /HPF???Transitional Epith - 9 /HPF???Calcium Oxal - HEAVY???Mucus - SLIGHT???Culture Indication - CULTURE INDICATED Allergies (NKA means No Known Allergies) Bee Stings Coconut Oil Cymbalta??(lips and face swell) Keflex??(full body swelling hives) Latex??(rash all over) ciprofloxacin penicillin??(swell up can't swallow) Problems Active Problems??(10) Asthma?? Asthma with COPD?? Depression?? depression/anxiety/ptsd/asthma?? Fibromyalgia?? GERD (gastroesophageal reflux disease)?? Leg pain?? PTSD (post-traumatic stress disorder)?? Self mutilating behavior?? Sleep apnea?? Education Materials Below is the list of Educational Leaflet Providered with your Discharge Instructions. Valuables and Belongings I fully understand and agree that [facility] accepts no responsibility for all my personal property including clothing, toilet articles, radios, jewelry, dentures, hearing aids, rings, money, or any other property that is in my possession or is brought to me after admission. I understand certain valuables may be placed in a hospital safe for a short period of time. I understand that the hospital is not liable for loss or damage due to accident, fire, or other natural occurrence while said property is in the safe. I accept full responsibility for any personal property that I keep with me, and will not hold the hospital responsible in case of loss or disappearance. I acknowledge that i have been encouraged to send valuables and belongings home. ?? No Valuables/Belongings: No valuables/belongings present Review of Valuable and Belonging List: With patient, With witness Possessions released to: no belongings present in preop area Date for Pt to Sign Valuables/Belongings: 10/02/22 13:34:00 ?? Other Discharge Information ? Case Management Discharge Plan?? Discharge Plan?? Discharge Agency Information?? Discharge Level of Care at Discharge: penitentiary facility Name of Agency #1: [place] [address] Nae Gallego Discharge Transportation Arranged: [facility] [address] [place] [address] ??[phone] Agency [employer] Helper #1: [phone] Mode of Transportation Arranged: Ambulance Service Start Date and Time #1: 10/02/22 14:00:00 Discharge Arranged Transport Date/Time: 10/02/22 14:00:00 Service Categories #1: Occupational Therapy, Physical Therapy, Penitentiary Discharge Nursing Homes/Rehab Facilities: [facility] Service Comments #1: You are being transferred to [facility] via [facility]. ?? Pulmonary Rehab Status?? Pulmonary Rehab Discharge Status?? Respiratory Rate: 18 br/min ? Common Emergency Awareness Tips IS IT A STROKE? Act FAST and Check for these signs: FACE Does the face look uneven? ARM Does one arm drift down? SPEECH Does their speech sound strange? TIME Call at any sign of stroke ?? Heart Attack Signs Chest discomfort: Most heart attacks involve discomfort in the center of the chest and lasts more than a few minutes, or goes away and comes back. It can feel like uncomfortable pressure, squeezing, fullness or pain. Discomfort in upper body: Symptoms can include pain or discomfort in one or both arms, back, neck, jaw or stomach. Shortness of breath: With or without discomfort. Other signs: Breaking out in a cold sweat, nausea, or lightheaded. Remember, MINUTES DO MATTER. If you experience any of these heart attack warning signs, call to get immediate medical attention! ?? Smoking can increase your chances of developing chronic health problems and can cause harmful effects to other family members in your house. If you smoke, you are strongly encouraged to quit. Please call [facility] at [phone] or [phone] ([phone]) or log in to [email or web address] for referrals to smoking cessation programs. ?? The National Suicide Prevention Hotline is available 15/06 if you or someone you know needs to find areason to keep living. By calling 0-905-356-[place] (5213) you'll be connected to a skilled, trained counselor at a crisis center in your area. INPATIENT DISCHARGE INSTRUCTIONS SIGNATURE CHANRDIKA ZEPEDARAPHAEL GONCALVES Location:[facility] Registration Date and Time:09/27/2022 10:29 EDT Primary Care Physician: Eusebio Payton DO, I RAPHAEL FLORES, have received the above patient education materials/instructions and have verbalized understanding. If ambulance or transport services are being used I further acknowledge being givena choice of service. ?? If you need to contact me, please call me at this number: . Patient/Family And Consumer Sciences Teacher Name: Patient/Family And Consumer Sciences Teacher Signature: Relationship to Patient: Witness Name/Signature: Date: BHSPowerscribe , CIS S: TRANSCRIBE Marni REAL, Isai: VERIFY Event Display: Result: Authored Date: PROCEDURE: Hip Comp 2 Views Right, C-Arm < 1 Hour CLINICAL INDICATION: 51 years old Female with Reason: Fracture, Right Hip Pinning. COMPARISONS: RIGHT femur radiographs and CT of yesterday [id number] woman me to call If RIGHT and Some Warping 1-year-old unit usually one mediastinal usually one mediastinal tube and October gallbladder and then out the medial basilar segment of please take in formalin and the medial without oral volumen MLO view and is only that wasn't TECHNIQUE: Fluoroscopy support was provided in the operating room for the referring physician using the C-arm. There was no radiologist in attendance. This report is provided for documentation purposes. In addition, a total of eight views of the RIGHT hip in the frontal and frog lateral projections are obtained in the OR with the C-arm. Fluoroscopy time: 56.5 seconds. Technologist time: 40 minutes. FINDINGS: Three compression screws are noted traversing the known compacted RIGHT femoral mid cervical fracture ending within the RIGHT femoral head. IMPRESSION: 1. C-arm study performed in the OR. 2. ORIF of RIGHT femoral neck fracture. Thank you for allowing me to participate in the care of this patient. WSN: [id number] Ordering Physician: Corey Hinkle MD Dictated By: Yannick Grider MD Dictated Date/Time: 09/28/22 4:17 pm Reviewed By: Yannick Grider MD Signed By: Yannick Grider MD Signed Date/Time: 09/28/22 4:17 pm Transcribed By: DARRYL Transcribed Date/Time: 09/28/22 4:02 pm XR Hip - right 2 Views BHSPowerscribe , CIS S: TRANSCRIBE Yannick Grider MD: VERIFY Event Display: Result: Authored Date: [id number] PROCEDURE: Hip Comp 2 Views Right, C-Arm < 1 Hour CLINICAL INDICATION: 51 years old Female with Reason: Fracture, Right Hip Pinning. COMPARISONS: RIGHT femur radiographs and CT of yesterday [id number] woman me to call If RIGHT and Some Warping 1-year-old unit usually one mediastinal usually one mediastinal tube modulation and October gallbladder and then out the medial basilar segment of please take in formalin and the medial without oral volumen MLO view and is only that wasn't TECHNIQUE: Fluoroscopy support was provided in the operating room for the referring physician using the C-arm. There was no radiologist in attendance. This report is provided for documentation purposes. In addition, a total of eight views of the RIGHT hip in the frontal and frog lateral projections are obtained in the OR with the C-arm. Fluoroscopy time: 56.5 seconds. Technologist time: 40 minutes. FINDINGS: Three compression screws are noted traversing the known compacted RIGHT femoral mid cervical fracture ending within the RIGHT femoral head. IMPRESSION: 1. C-arm study performed in the OR. 2. ORIF of RIGHT femoral neck fracture. Thank you for allowing me to participate in the care of this patient. WSN: [id number] Ordering Physician: Corey Hinkle MD Dictated By: Yannick Grider MD Dictated Date/Time: 09/28/22 4:17 pm Reviewed By: Yannick Grider MD Signed By: Yannick Grider MD Signed Date/Time: 09/28/22 4:17 pm Transcribed By: DARRYL Transcribed Date/Time: 09/28/22 4:02 pm XR Tibia and Fibula - right 2 Views BHSPowerscribe , CIS S: TRANSCRIBE Ayush Oropeza MD: VERIFY Event Display: Result: Authored Date: [id number] Tibia/Fibula 2 Views Right Hx of Present Illness: Pt reports that she slipped and fell on wet floor injuring her entire right leg . pt denies head strike neck and back pain. Pt very non-specific about pain. Sts its burning .; Reason: Trauma; with Pain; Clinical Question(s): Fracture; Special Instructions: This is a protocol film and radiologist should call any findings to the Charge Nurse COMPARISON: 02/04/2020 FINDINGS: No fractures or bone lesions. Stress related thickening of the anterior and medial mcghee of the tibia. Visualized joints are normal. Normal soft tissues. IMPRESSION: No fracture. WSN: [id number] Ordering Physician: Joana Grady Dictated By: Ayush Oropeza MD Dictated Date/Time: 09/27/22 7:59 am Reviewed By: Ayuhs Oropeza MD Signed By: Ayush Oropeza MD Signed Date/Time: 09/27/22 7:59 am Transcribed By: DARRYL Transcribed Date/Time: 09/27/22 7:57 am XR Femur - right 2 Views BHSPowerscribe , CIS S: TRANSCRIBE Ayush Oropeza MD: VERIFY Event Display: Result: Authored Date: [id number] Femur 2 Views Right, 4 views Hx of Present Illness: Pt reports that she slipped and fell on wet floor injuring her entire right leg . pt denies head strike neck and back pain. Pt very non-specific about pain. Sts its burning .; Reason: Pain; Clinical Question(s): Fracture COMPARISON: None. FINDINGS: No fracture, dislocation or bone lesion. Moderate osteoarthritis of the right knee. Normal soft tissues. IMPRESSION: No definite fracture, but if patient cannot be evaluate on the right hip recommend CT. WSN: [id number] Ordering Physician: Elias Liu Dictated By: Ayush Oropeza MD Dictated Date/Time: 09/27/22 8:25 am Reviewed By: Ayush Oropeza MD Signed By: Ayush Oropeza MD Signed Date/Time: 09/27/22 8:25 am Transcribed By: DARRYL Transcribed Date/Time: 09/27/22 8:21 am XR Pelvis 1 or 2 Views BHMARY Cam S: TRANSCRIBE Ayush Oropeza MD: VERIFY Event Display: Result: Authored Date: [id number] Pelvis 1 or 2 Views Hx of Present Illness: Pt reports that she slipped and fell on wet floor injuring her entire right leg . pt denies head strike neck and back pain. Pt very non-specific about pain. Sts its burning .; Reason: Pain; Clinical Question(s): Fracture COMPARISON: None. FINDINGS: Possible overriding of cortex in the region of the right femoral neck. Normal hips and sacroiliac joints. Normal soft tissues. IMPRESSION: Possible fracture of the right femoral neck. Recommend CT for better evaluation. A critical result message (Document Only) has been communicated via the [employer] system on 09/27/2022 8:31 AM, Message ID [id number]. WSN: [id number] Ordering Physician: Elias Liu Dictated By: Ayush Oropeza MD Dictated Date/Time: 09/27/22 8:32 am Reviewed By: Ayush Oropeza MD Signed By: Ayush Oropeza MD Signed Date/Time: 09/27/22 8:32 am Transcribed By: DARRYL Transcribed Date/Time: 09/27/22 8:[address] Lower extremity WO contrast BHMARY Cam S: TRANSCRIBE Ayush Oropeza MD: VERIFY Event Display: Result: Authored Date: [id number] CT Ext Lower W/O Contrast Right Hx of Present Illness: Pt reports that she slipped and fell on wet floor injuring her entire right leg . pt denies head strike neck and back pain. Pt very non-specific about pain. Sts its burning .; Reason: Fracture; Fracture, hip; Clinical Question(s): Hip TECHNIQUE: Helical CT without contrast formatted in 3 planes. Weight-based protocol using automatic tube modulation was used to optimize exposure parameters. CTDIvol Body: 5.70 mGy, DLP Body: 150 mGy*cm. COMPARISONS: None FINDINGS: Bones and joints: Fracture of the right subcapital femoral neck with mild impaction. Mild osteoarthritis of right hip. Diffuse osteopenia. No other fracture. Soft Tissues: Diffuse anasarca. Hematoma along the posterior aspect of the right hip. IMPRESSION: Right subcapital femoral neck fracture. Small hematoma along the posterior aspect of the right hip. A critical result message (Document Only) has been communicated via the [employer] system on 09/27/2022 10:21 AM, Message ID [id number]. WSN: [id number] Ordering Physician: Vickie Ramos Dictated By: Ayush Oropeza MD Dictated Date/Time: 09/27/22 10:21 a Reviewed By: Ayush Oropeza MD Signed By: Ayush Oropeza MD Signed Date/Time: 09/27/22 10:21 am Transcribed By: DARRYL Transcribed Date/Time: 09/27/22 10:16 am Patient Care team information Care Team PersonnelName: Elif Roldan RN Position: [facility] RN Member Role: Primary Care Nurse Name: Jean-Claude Horvath Position: [facility] Cardio/Pulm Mgr ([facility]) Member Role: Primary Care Nurse Name: Madison Calderon RN Position: [facility] RN Member Role: Primary Care Nurse Name: Suly Galvan RN Position: [facility] RN Member Role: Primary Care Nurse Name: Kassi Sosa Position: [facility] RN Member Role: Primary Care Nurse Name: Bindu Loja Position: [facility] RN Member Role: Primary Care Nurse Name: Radha Baptiste RN Position: [facility] RN Member Role: Primary Care Nurse Name: Kilo Olmos RN Position: [facility] RN Member Role: Primary Care Nurse Name: Cristina Randle RN Position: [facility] RN Member Role: Primary Care Nurse Name: Eusebio Payton DO Position: [facility] Physician (General Medicine) Member Role: PCP Address: Address: [address] [place], [place] [id number] [place] [address]- [place] Name: Nilda Jimenez RN Position: [facility] RN Member Role: Primary Care Nurse Name: Awa Langford RN Position: [facility] RN Member Role: Primary Care Nurse Name: Sharmaine Goodwin RN Position: [facility] RN Member Role: Primary Care Nurse Name: German Aldridge MD Position: [facility] ED Medicine MD Member Role: ED Attending Physician Address: Address: [address] [place] [address] [place] [address]- Name: Vickie Ramos DO Position: [facility] Resident Member Role: ED Resident Address: Address: [address] [place] [address]- Name: Anastasia Covington RN Position: [facility] ED RN W/OE and Tasks Member Role: Patient Care Provider Name: Brendon Morton Position: [facility] ED TA [facility] Member Role: Transitions Rn Care Coordinator Care Team Related PersonsName: RAMONA FLORES Address: home [address] [place] [address] [address] [place] [address] Name: MONICA FLORSE Address: home [address] [place] [address] Name: MYRIAM FLORES Address: home [address] [place] [address] Name: ELSIE FLORES Address: home [facility], [place] Name: JUNI FLORES Address: home [address] [place] [address]
--- OUTSIDE RECORDS SUMMARY | 2022-10-10 10:11 | XMS_ITS | Continuity of Care Document ---
:1970 Author Organization [facility] Address Unavailable , Care Team Providers Name Role Phone Eusebio Payton DO Primary Care Physician Encounter [facility] Date(s): 06/12/22 - 07/12/22 [facility] Attending Physician: Héctor Alfaro Admitting Physician: AdmtrHéctor Referring Physician: AdmtrHéctor Allergies, Adverse Reactions, Alerts Substance Reaction Severity [...] acetaminophen 325 mg oral tablet 975 mg, 3, [...] 16:09:00 EDT, Inhaler, Route to Pharmacy Electronically, [id number], [facility]/pharmacy #[id number], ICD Code J45.20 Start [...] 90 tablet, 11 Refills, 06/12/22 13:04:00 EDT, [facility]/pharmacy #[id number], please refill early, 154, cm, 04/21/22 10:23:00 EDT, Height,58, kg, 04/21/22 10:23:00 EDT, Dry Weight Start Date: 06/12/22 Status: OrderedVitamin C 250 mg oral tablet [...]
--- OUTSIDE RECORDS SUMMARY | 2022-10-10 10:11 | XMS_ITS | Continuity of Care Document ---
:1970 Author Organization [facility] Address [address] [place] [address]- Care Team Providers Name Role Phone Eusebio Payton DO Primary Care Physician [facility]counter [facility] Date(s): 02/04/20 - 02/05/[address] [address]- [facility] Discharge Disposition: A-Transfer SNF Attending Physician: Chandler Meneses MD Admitting Physician: Chandler Meneses MD Referring Physician: Not on Staff, Referring [...] DAY, [id number] Start Date: 08/16/19 Status: OrderedhydrOXYzine pamoate [...] 16:09:00 EDT, Inhaler, Route to Pharmacy Electronically, [id number], [facility]/pharmacy #[id number], ICD Code J45.20 Start Date: 04/09/18 Status: OrderedSEROquel 200 mg oral tablet 200 mg, 1, tablet, By Mouth, 2 times a day, # 60 tablet, Refills 5, Tot. Refills 5, Maintenance, 12/29/17 15:09:37, Route to Pharmacy Electronically, [id number], [facility]/pharmacy #[id number] Start Date: 12/29/17 Stop Date: 06/27/18 Status: Orderedsertraline 100 mg oral tablet 1 tablet = 100 mg, By Mouth, Daily, # 30 tablet, 0 Refills, Maintenance, 06/26/19 17:17:27 EDT, Tablet Start Date: 06/26/19 Status: Orderedtopiramate 50 mg oral tablet See Instructions, TAKE 1.5 TABLET BY MOUTH EVERYDAY AT BEDTIME, # 45 tablet, 4 Refills, 01/19/20 14:26:00 EST, [facility], 152, cm, 01/19/20 13:47:00 EST, Height, [...] Exam Date Time Procedure Performing Provider Status 02/05/20 12:05 AM Knee 1 or 2 Views Right Caroline Shay L; Au th (Verified) Notes:(Knee 1 or 2 Views Right) Reason For Exam: with Pain;TraumaRESULT: Knee 1 or 2 Views Right Knee 1 or 2 Views Right, 2 views Reason: Trauma; with Pain; Clinical Question(s): Fracture; Hx of Present Illness: c o right knee andright ankle pain states continues to fall bilat knees with abrasions and redness pt denies hitting head COMPARISON: None. FINDINGS: There is no evidence of acute or healing fracture, dislocation or bone lesion. Tricompartmental osteoarthrosis, most significant in the patellofemoral compartment. No osteochondral defects or intra-articular loose bodies. No evidence of joint effusion. Soft tissues unremarkable. IMPRESSION: No acute bony or soft tissue abnormalities. Moderate osteoporosis most significant patellofemoral compartment. WSN: [id number] Ordering Physician: Javier Reddy Dictated By: Akash Ojeda MD Dictated Date/Time: 02/05/20 7:50 am Reviewed By: Akash Ojeda MD Signed By: Akash Ojeda MD Signed Date/Time: 02/05/20 7:50 am Transcribed By: DARRYL Transcribed Date/Time: 02/05/20 7:48 am Exam Date Time Procedure Performing Provider Status 02/05/20 12:05 AM Knee 1 or 2 Views Left Caroline Shay L; Aut h (Verified) Notes:(Knee 1 or 2 Views Left) Reason For Exam: with Pain;TraumaRESULT: Knee 1 or 2 Views Left Knee 1 or 2 Views Left, 2 views Reason: Trauma; with Pain; Clinical Question(s): Fracture; Hx of Present Illness: c o right knee andright ankle pain states continues to fall bilat knees with abrasions and redness pt denies hitting head COMPARISON: 12/23/2018 FINDINGS: There is no evidence of acute or healing fracture, dislocation or bone lesion. Tricompartment osteoarthritic changes, severe in the medial compartment where there is a [id number] appearance, subchondral sclerosis and cystic changes, and prominent marginal osteophytes. No evidence of joint effusion. Soft tissues unremarkable. IMPRESSION: No acute bony or soft tissue abnormalities. Advanced degenerative joint disease most significant medial compartment. WSN: [id number] Ordering Physician: Javier Reddy Dictated By: Akash Ojeda MD Dictated Date/Time: 02/05/20 7:48 am Reviewed By: Akash Ojeda MD Signed By: Akash Oejda MD Signed Date/Time: 02/05/20 7:48 am Transcribed By: DARRYL Transcribed Date/Time: 02/05/20 7:47 am Exam Date Time Procedure Performing Provider Status 02/05/20 12:05 AM Ankle Min 3 Views Right Caroline Shay; Au th (Verified) Notes:(Ankle Min 3 Views Right) Reason For Exam: with Pain;TraumaRESULT: Ankle Min 3 Views Right Ankle Min 3 Views Right Reason: Trauma; with Pain; Clinical Question(s): Fracture; Hx of Present Illness: c o right knee andright ankle pain states continues to fall bilat knees with abrasions and redness pt denies hitting head. COMPARISON: Right foot radiographs 11/18/2017. FINDINGS: No evidence of acute or healing fracture or bone lesion. No malalignment. Intact ankle mortise and talar dome. No evidence of ankle joint effusion. No soft tissue abnormalities. IMPRESSION: No acute bony or soft tissue abnormalities. WSN: [id number] Ordering Physician: Javier Reddy Dictated By: Akash Ojeda MD Dictated Date/Time: 02/05/20 7:47 am Reviewed By: Akash Ojeda MD Signed By: Akash Ojeda MD Signed Date/Time: 02/05/20 7:47 am Transcribed By: DARRYL Transcribed Date/Time: 02/05/20 7:45 am Exam Date Time Procedure Performing Provider Status 02/05/20 12:05 AM Ankle Min 3 Views Left Caroline Shay; Aut h (Verified) Notes:(Ankle Min 3 Views Left) Reason For Exam: with Pain;TraumaRESULT: Ankle Min 3 Views Left Ankle Min 3 Views Left Reason: Trauma; with Pain; Clinical Question(s): Fracture; Hx of Present Illness: c o right knee andright ankle pain states continues to fall bilat knees with abrasions and redness pt denies hitting head. COMPARISON: 12/23/2018. FINDINGS: No evidence of acute or healing fracture or bone lesion. No malalignment. Intact ankle mortise and talar dome. No evidence of ankle joint effusion. Small plantar calcaneal spur noted. No soft tissue abnormalities. IMPRESSION: No acute bony or soft tissue abnormalities. WSN: [id number] Ordering Physician: Javier Reddy Dictated By: Akash Ojeda MD Dictated Date/Time: 02/05/20 7:45 am Reviewed By: Akash Ojeda MD Signed By: Akash Ojeda MD Signed Date/Time: 02/05/20 7:45 am Transcribed By: DARRYL Transcribed Date/Time: 02/05/20 7:43 am Vital Signs Most recent to oldest 1 2 3 [Reference Range]: Height 150 cm 150 cm 150 cm (02/05/20 2:29 PM) (02/05/20 11:11 AM) (02/05/20 12 :53 AM) Weight 101.5 kg 101.5 kg 101.5 kg (02/05/20 2:29 PM) (02/05/20 11:11 AM) (02/05/20 12 :53 AM) Oxygen Saturation [94-100 100 % 100 % 100 % %] (02/05/20 2:29 PM) (02/05/20 11:11 AM) (02/05/20 7: 04 AM) Pulse Rate [55-90 bpm] 87 bpm 85 bpm 87 bpm (02/05/20 2:29 PM) (02/05/20 11:11 AM) (02/05/20 7: 04 AM) Body Mass Index 45.11 45.11 45.11 [18.5-24.99] *>HHI* *>HHI* *>HHI* (02/05/20 2:29 PM) (02/05/20 11:11 AM) (02/05/20 12 :53 AM) Blood Pressure 117/70 mm Hg 120/70 mm Hg 124/78 mm Hg [90-138/55-84 mm Hg] (02/05/20 2:29 PM) (02/05/20 11:11 AM) ( 7:04 AM) Respiratory Rate [16-30 19 br/min 18 br/min 18 br/mi n br/min] (02/05/20 2:29 PM) (02/05/20 11:11 AM) (02/05/20 8: 05 AM) Temperature [96.8-100.4 96.7 DegF DegF] *L* (02/05/20 12:53 AM) Mode of Delivery (Oxygen) Room air Room air Room a ir (02/05/20 2:29 PM) (02/05/20 11:11 AM) (02/05/20 7: 04 AM) Blood pressure sites Arm, left Arm, left Arm, left (02/05/20 2:29 PM) (02/05/20 11:11 AM) (02/05/20 7: 04 AM) Temperature Route Temporal (02/05/20 12:53 AM) Dry Weight 101.5 kg 101.5 kg 101.5 kg (02/05/20 2:29 PM) (02/05/20 11:11 AM) (02/05/20 12 :53 AM) Weight Obtained Via Patient/family stated (02/04/20 11:14 PM) Dry Weight Obtained Via Patient/family stated (02/04/20 11:14 PM) Social History Social History Type Response Smoking Status Current every day smoker; Ty pe: Cigarettes; Started at age: 45; entered on: 07/27/18 Sex
--- NOTE | 2022-10-10 10:12 | ED_ITS ---
HPI - Chest Pain General Chief Complaint: Chest Pain Stated Complaint: CP FROM SNF PER EMS Time Seen by Provider: 10/10/22 10:03 Source: patient Mode of arrival: EMS Limitations: physical limitation History of Present Illness HPI narrative: 51 yo F patient with a PMH afib, anxiety, asthma, bipolar 1, hypotension, h ypokalemia, and PTSD presents to the ED from a SNF via EMS for c/o left sided chest pain with palpation and inspiration. She reports pain began yesterday afternoon while at rest with no associated shortness of breath, nausea, or changes in bowel pattern. Pt also reports that she has an active UTI being treated with Macrobid and requests she test her urine for infection. She reports a tender, painful perineum with bleeding when wiping. She denies vaginal bleeding or discharge. On initial interview, pt states that she feels anxious and would like Clonazepam 1 mg, which she is ordered at the SNF. She denies headache, vision changes, diarrhea, constipation, bloody stools, nausea, of vomiting. MD complaint: chest pain and chest discomfort Onset (ago): day(s) Prior episodes: Yes Onset: during rest Pain location: left chest Pain radiation: none Severity: mild Pain scale (0-10): 5 Quality: aching Relieving factors: nothing Exacerbating factors: nothing Related Data On Oral Contraceptives: No Previous Rx's Medication Instructions Recorded sulfamethoxazole 800 1 tab PO BID 7 days #14 tabs 10/10/22 mg-trimethoprim 160 mg tablet Allergies Allergy/AdvReac Type Severity Reaction Status Date / Time cephalexin Allergy Swelling Verified 02/07/21 18:19 ciprofloxacin [From Cipro] Allergy Swelling Verified 02/07/21 18:19 duloxetine [From Cymbalta] Allergy Swelling Verified 02/07/21 18:19 Penicillins Allergy Swelling Verified 02/07/21 18:19 Review of Systems Review of Systems: Yes all other systems are reviewed and are negative Constitutional: Constitutional: Reports no additional constitutional complaints, Denies chills, Denies fever(s), Reports frequent falls, Denies headache(s), Denies weight gain and Denies weight loss Eyes: Eyes: Reports no additional eye complaints and Denies change in vision ENT: Reports system reviewed and no additional complaints, except as docum ented, Reports Normal hearing present and Denies headache(s) Cardiovascular: Cardiovascular: Reports no additional cardiovascular complaints, Denies chest pain, Denies Epigastric Pain, Denies epigastric discomfort, Denies Loss of Consciousness and Denies dyspnea Respiratory: Respiratory: Reports no additional respiratory complaints, Denies cough, Denies pain on inspiration and Denies dyspnea Gastrointestinal: Gastrointestinal: Reports no additional gastrointestinal complaints, Denies melena, Denies hematochezia, Denies change in bowel habits, Denies constipation and Denies diarrhea Genitourinary: Genitourinary: Reports no additional female genitourinary complaints Musculoskeletal: Musculoskeletal: Reports no additional musculoskeletal complaints and Reports myalgias Integumentary/Breasts: Skin/Breast: Reports system reviewed and no additional complaints, except as docu Neurologic: Reports system reviewed and no additional complaints, except as documented, Reports Normal hearing present, Reports frequent falls and Denies headache(s) Psychiatric: Psychiatric: Reports no additional psychiatric complaints and Reports anxiety PMFSH Past Medical History Attestation statement: The following information was validated with the patient. Source: old records reviewed Medical History Afib Anxiety Arthritis Asthma Bipolar 1 disorder Bronchitis Complications of gastric bypass surgery Hypokalemia Hypotension Migraines PTSD (post-traumatic stress disorder) Surgical History H/O: History of cholecystectomy Social History Social History Alcohol intake: never Smoked in Last 30 Days: No Use of substances other than those prescribed or required for medical reasons: No Advance Directives: No Advance Directives Information Provided: Yes Patient : No Physical Exam Vital Signs: Vital Signs: Last Vital Signs Temp 97.7 F 10/10/22 09:50 Pulse 84 10/10/22 10:57 Resp 13 10/10/22 10:57 BP 90/62 10/10/22 10:57 Pulse Ox 99 10/10/22 10:57 O2 Del Method 10/10/22 10:57 BMI result Body Mass Index 20.0 Const: General: cooperative, alert, awake and anxious Nutritional Appearance: average body habitus Orientation/consciousness: patient oriented x3 Limitations: physical limitations HEENT: Head: Yes normal to inspection and Yes atraumatic Ears: hearing grossly normal bilaterally General nose exam: Normal external nose present Face and sinus: Yes normal facial exam and Yes face symmetric Eyes: General: appearance normal, both eyes and all related structures Alignment and Position: alignment normal Periorbital: periorbital findings normal Eyelids: Yes eyelids normal Conjunctivae: conjunctivae normal Sclerae: sclerae normal Corneas: corneas normal Pupils: Equal, round and reactive pupils present EOM: EOMs intact bilaterally Neck: Neck: Yes normal visual inspection and Yes full ROM Chest: Chest palpation & inspection: normal inspection of the chest, no crepitus and tenderness Breast/axilla inspection: normal inspection of the breasts Resp: Effort & Inspection: normal respiratory effort, able to speak in complete sentences and not labored Auscultation: clear to auscultation bilaterally Cardio: Rate: regular rate Rhythm: regular rhythm GI: Inspection: Yes normal to inspection Auscultation: normal bowel sounds : External Female Exam: normal external appearance, normal appearance of the urethra, erythema and externally tender Back/Spine/Pelvis: Thoracic/Lumbar Spine: thoracic and lumbar spine normal to inspection Skin: General skin exam: no rashes or lesions noted Neuro: General: patient oriented x3 and Unable to assess gait Cranial nerves: Yes Equal, round and reactive pupils present and Yes Normal hearing present Cognition (Neuro): normal cognition Gait exam (Neuro): Unable to assess gait Extrem: General: Yes full ROM, Yes capillary refill normal and Yes normal exam except as noted Right lower extremity: normal capillary refill and hip/thigh (s/p right hip/femur repair rt lateral thigh) Psych: Appearance: well kempt Mental Status: mental status grossly normal Speech and movement: Normal speech and movement present Affect: normal affect Attitude: cooperative Thought process: Normal thought process present Thought content: Normal thought content present Insight: Good insight present (Psych) Judgement: Good judgement present (Psych) Medications Administered Discontinued Medications Generic Name Dose Route Start Last Admin Trade Name Venturaq PRN Reason Stop Dose Admin Clonazepam 1 mg 10/10/22 10:18 10/10/22 10:58 Clonazepam 1 Mg Tablet PO 10/10/22 10:19 1 mg ONCE ONE Administration Potassium Chloride 10 meq in 100 mls @ 100 mls/hr 10/10/22 11:09 10/10/22 12:53 Potassium Chloride/H20 IV 10/10/22 12:08 Infused ONCE ONE Infusion Midodrine 5 mg 10/10/22 10:18 10/10/22 10:58 Midodrine Hcl 5 Mg Tablet PO 10/10/22 10:19 5 mg ONCE ONE Administration Potassium Chloride 40 meq 10/10/22 11:09 10/10/22 11:42 Potassium Chloride Er 20 Meq Tab.Er.Prt PO 10/10/22 11:10 40 meq ONCE ONE Administration Trimethoprim/Sulfamethoxazole 1 tab 10/10/22 12:01 10/10/22 12:25 Sulfamethox/Trimeth 800/160 Tablet PO 10/10/22 12:02 1 tab ONCE ONE Administration MDM - Chest Pain MDM Narrative Medical decision making narrative: 51 yo F patient with a PMH afib, anxiety, asthma, bipolar 1, hypotension, hypokalemia, and PTSD presents to the ED from a SNF via EMS for c/o left sided chest pain with palpation. Initial blood pressure 90s/50s. Pt with midodrine as an at home medication. One dose Midodrine 5 mg given with good effect in increasing BP to 110s/60s. Blood work showed potassium level 2.9, 40 mEq KCl given PO and 10 mEq IV. UA postive for RBCs, WBCs, leukocystes and blood, Bactrim double strength ordered 2 x day for 7 days for treatment with first dose initiated in ED. EKG consistent with NSR with PACs and nonspecific T wave abnormality, negative for acute pathology. CXR negative for active disease. Patient received requested Klonopin which she stated helped her symptom of anxiety significantly. I explained my physical exam findings as well as all test results to the patient with no unanswered questions. Low suspicion for cardiac or infectious pathology. Educated to return to the ED if symptoms were to worsen or if she were to develop any dizziness, shortness of breath, difficulty breathing, chest pain, blurry vision, loss of vision, nausea, vomiting, abdominal pain, fever, chills, back pain, or any other complaints. Pt cleared for discharge with recommendation to follow up with a primary care provider for further management with names/groups provided to establish care or if she has a PCP to follow up with her provider. Recommended to repeat chemistry in 24-48 hours. Medical Records Data Attestation: I reviewed the patient's medical records. Lab Data Attestation: I reviewed the patient's lab results. Result diagrams: 10/10/22 10:39 10/10/22 10:39 Labs: Lab Results 10/10/22 10/10/22 10/10/22 Range/Units 10:39 10:39 10:39 WBC 8.2 (4.8-10.8) X10*3/uL RBC 3.05 L (4.20-5.50) X10*6/uL Hgb 9.2 L (12.0-16.0) g/dl Hct 29.0 L (37.0-47.0) % MCV 95.1 (80.0-98.0) fL MCH 30.2 (27.0-33.0) pg MCHC 31.7 (31.0-35.0) g/dl RDW 17.5 H (11.0-16.0) % Plt Count 375 (160-400) X10*3/uL MPV 8.5 L (9.4-12.3) fL Immature Gran % (Auto) 0.7 H (0.0-0.4) % Neut % (Auto) 67.6 (45-73) % Lymph % (Auto) 23.9 (20-40) % [place] % (Auto) 7.1 (2-11) % Eos % (Auto) 0.2 (0-4) % Baso % (Auto) 0.5 (0-2) % Lymph # (Auto) 2.0 (1.2-4.9) X10*3/uL [place]ens # (Auto) 0.6 (0.1-1.2) X10*3/uL Eos # (Auto) 0.0 (0.0-0.4) X10*3/uL Baso # (Auto) 0.0 (0.0-0.2) X10*3/uL Abs Immat Gran (auto) 0.06 H (0.00-0.03) X10*3/uL Absolute Neuts (auto) 5.6 (2.0-8.3) x10*3/uL Absolute Nucleated RBC 0.000 (0.0-0.012) X10*3/uL Nucleated RBC % (auto) 0.0 (0.0-0.2) /100WBC Sodium 142 (135-145) mmol/L Potassium 2.9 L D (3.3-5.1) mmol/L Chloride 106 (96-108) mmol/L Carbon Dioxide 24 (22-29) mmol/L Anion Gap 15 (12-20) BUN 10 (9-16) mg/dL Creatinine 0.66 (0.5-1.4) mg/dL Estim Creat Clear Calc 68.8 Estimated GFR > 60 Random Glucose 138 H (60-115) mg/dL Calcium 7.9 L (8.4-10.2) mg/dL Troponin I High Sens < 3.5 (<3.5-17.0) ng/L Urine Color Urine Appearance Urine pH (5.0-9.0) Ur Specific [place] (1.005-1.025) Urine Protein (Neg-Trace) mg/dL Urine Glucose (UA) (Negative) mg/dL Urine Ketones (Negative) mg/dL Urine Blood (Negative) Urine Nitrite (Negative) Ur Leukocyte Esterase (Negative) Urine RBC (0-2) /HPF Urine WBC (0-5) /HPF Ur Squamous Epith Cells (0-2) /HPF Urine Bacteria (None Seen) Hyaline Casts (0-2) /LPF // Range/Units 11:14 WBC (4.8-10.8) X10*3/uL RBC (4.20-5.50) X10*6/uL Hgb (12.0-16.0) g/dl Hct (37.0-47.0) % MCV (80.0-98.0) fL MCH (27.0-33.0) pg MCHC (31.0-35.0) g/dl RDW (11.0-16.0) % Plt Count (160-400) X10*3/uL MPV (9.4-12.3) fL Immature Gran % (Auto) (0.0-0.4) % Neut % (Auto) (45-73) % Lymph % (Auto) (20-40) % Pickens % (Auto) (2-11) % Eos % (Auto) (0-4) % Baso % (Auto) (0-2) % Lymph # (Auto) (1.2-4.9) X10*3/uL [place] # (Auto) (0.1-1.2) X10*3/uL Eos # (Auto) (0.0-0.4) X10*3/uL Baso # (Auto) (0.0-0.2) X10*3/uL Abs Immat Gran (auto) (0.00-0.03) X10*3/uL Absolute Neuts (auto) (2.0-8.3) x10*3/uL Absolute Nucleated RBC (0.0-0.012) X10*3/uL Nucleated RBC % (auto) (0.0-0.2) /100WBC Sodium (135-145) mmol/L Potassium (3.3-5.1) mmol/L Chloride (96-108) mmol/L Carbon Dioxide (22-29) mmol/L Anion Gap (12-20) BUN (9-16) mg/dL Creatinine (0.5-1.4) mg/dL Estim Creat Clear Calc Estimated GFR Random Glucose (60-115) mg/dL Calcium (8.4-10.2) mg/dL Troponin I High Sens (<3.5-17.0) ng/L Urine Color Yellow Urine Appearance Clear Urine pH 5.5 (5.0-9.0) Ur Specific [place] 1.010 (1.005-1.025) Urine Protein Negative (Neg-Trace) mg/dL Urine Glucose (UA) Negative (Negative) mg/dL Urine Ketones Negative (Negative) mg/dL Urine Blood Moderate (2+) H (Negative) Urine Nitrite Negative (Negative) Ur Leukocyte Esterase Moderate (2+) H (Negative) Urine RBC >20 H (0-2) /HPF Urine WBC 11-20 H (0-5) /HPF Ur Squamous Epith Cells 0-2 (0-2) /HPF Urine Bacteria None Seen (None Seen) Hyaline Casts 0-2 (0-2) /LPF Imaging Data Chest x-ray: Attestation: I personally reviewed and interpreted this imaging study as follows: My impression: No active lung pathology noted Radiologist's impression: EXAMINATION: XR CHEST CLINICAL INFORMATION: Chest pain COMPARISON: 02/07/2021 TECHNIQUE: Frontal view of the chest was obtained. FINDINGS: There is scarring and atelectasis in the left lower lung with no change. Lungs otherwise are considered clear. Heart and pulmonary vessels are normal. No congestive change. XR/XR chest 1V IMPRESSION: No active disease. ? Dictated By: Mega Kruger MD Signed By: <Electronically signed by Mega Kruger MD in OV> 10/10/22 1115 DD/ 1045 TD/TT:? Social Worker Aide: ECG Data ECG #1: Attestation: I personally reviewed and interpreted this ECG as follows: Interpretation: Test Reason : CHEST PAIN Blood Pressure : / mmHG Vent. Rate : 082 BPM ? ? Atrial Rate : 082 BPM ?? P-R Int : 152 ms? QRS Dur : 074 ms ? ? QT Int : 392 ms ? ? ? P-R-T Axes : 059 044 038 degrees ?? QTc Int : 457 ms ? Sinus rhythm with Premature atrial complexes Low voltage QRS Nonspecific ST abnormality Abnormal ECG When compared with ECG of 07-FEB-2021 19:46, Premature atrial complexes are now Present Nonspecific T wave abnormality has replaced inverted T waves in Anterior leads ? Referred By: Generic ED Physician ? Electronically Signed By: Dictated By: Signed By: DD/ 1000 TD/TT: 10/10/22 1053 Social Worker Aide: Discharge Plan Discharge Clinical Impression: Muscular chest pain, Hypokalemia, UTI (urinary tract infection) Patient Disposition: Xfer [facility] Transfer Details: BACK TO [facility] WITH TRESSA LESLIE Additional Instructions: Recommended to recheck chemisty in 24-48 hours as last potassium level 2.9. Prescriptions: New sulfamethoxazole-trimethoprim 800-160 mg tablet 1 tab PO BID 7 Days Qty: 14 0RF Referrals: [facility] Family Medicine [Provider Group] [facility] Primary [facility] [Provider Group] [facility] Primary [facility] [Provider Group] Print Language: Mohawk
--- OUTSIDE RECORDS SUMMARY | 2022-10-10 10:12 | XMS_ITS | Continuity of Care Document ---
:1970 Author Organization [facility] Address [address] [place] [address]- Care Team Providers Name Role Phone Eusebio Payton DO Primary Care Physician Encounter [facility] Date(s): 06/20/20 - 07/20/20 [facility] [address] [place] [address]- [facility] Allergies, Adverse Reactions, Alerts Substance Reaction Severity [...] 2 PUFFS BY MOUTH TWICE A DAY, [facility]/pharmacy #[id number] Start Date: 08/16/19 Status: OrderedFlovent Diskus [...] 16:09:00 EDT, Inhaler, Route to Pharmacy Electronically, [id number], [facility]/pharmacy #[id number], ICD Code J45.20 Start Date: 04/09/18 Status: OrderedSEROquel 200 mg oral tablet 200 mg, 1, tablet, By Mouth, 2 times a day, # 60 tablet, Refills 5, Tot. Refills 5, Maintenance, 12/29/17 15:09:37, Route to Pharmacy Electronically, [id number], [facility]/pharmacy #[id number] Start Date: 12/29/17 Stop Date: 06/27/18 Status: Orderedsertraline 100 mg oral tablet 1 tablet = 100 mg, By Mouth, Daily, # 30 tablet, 0 Refills, Maintenance, 06/26/19 17:17:27 EDT, Tablet Start Date: 06/26/19 Status: Orderedtopiramate 50 mg oral tablet See Instructions, TAKE 1.5 TABLET BY MOUTH EVERYDAY AT BEDTIME, # 45 tablet, 6 Refills, 05/08/20 15:55:00 EDT, [facility], 152, cm, 04/16/20 5:09:00 EDT, Height, [...]
--- OUTSIDE RECORDS SUMMARY | 2022-10-10 10:12 | XMS_ITS | Continuity of Care Document ---
:1970 Author Organization [facility] Address [address] [place] [id number]- Care Team Providers Name Role Phone Eusebio Payton DO Primary Care Physician Encounter [facility] Date(s): 04/19/22 - 08/17/22 [facility] [address] [place], [place] [address] Attending Physician: Robert Herrera MD Admitting Physician: Robert Herrera MD Allergies, Adverse Reactions, Alerts Substance Reaction [...] 16:09:00 EDT, Inhaler, Route to Pharmacy Electronically, [id number], [facility]/pharmacy #[id number], ICD [...] 90 tablet, 11 Refills, 06/12/22 13:04:00 EDT, [facility]/pharmacy #[id number], please refill early, 154, cm, 04/21/22 [...] 30 days ago entered on: 10/01/20 Sex Care Team PersonnelName: Eusebio Payton DO Address: [address] [place] [address] [address] [place], [place] [address]
--- OUTSIDE RECORDS SUMMARY | 2022-10-10 10:12 | XMS_ITS | Continuity of Care Document ---
:1970 Author Organization [facility] Address [address] [place] [address]- Care Team Providers Name Role Phone Eusebio Payton DO Primary Care Physician Encounter [facility] Date(s): 05/14/20 - 05/15/[address] [address]- [facility] Encounter Diagnosis Lower extremity edema (Final) - 05/15/20 Discharge Disposition: A-D/C Home Attending Physician: Luke REAL, Cydney Pierson Admitting Physician: Cydney Butler MD Referring Physician: Not on Staff, Referring [...] PUFFS BY MOUTH TWICE A DAY, [facility]/pharmacy #[id number] Start Date: 08/16/19 Status: OrderedFlovent [...] 16:09:00 EDT, Inhaler, Route to Pharmacy Electronically, [id number], [facility]/pharmacy #[id number], ICD Code J45.20 Start Date: 04/09/18 Status: OrderedSEROquel 200 mg oral tablet 200 mg, 1, tablet, By Mouth, 2 times a day, # 60 tablet, Refills 5, Tot. Refills 5, Maintenance, 12/29/17 15:09:37, Route to Pharmacy Electronically, [id number], [facility]/pharmacy #[id number] Start Date: 12/29/17 Stop Date: 06/27/18 Status: Orderedsertraline 100 mg oral tablet 1 tablet = 100 mg, By Mouth, Daily, # 30 tablet, 0 Refills, Maintenance, 06/26/19 17:17:27 EDT, Tablet Start Date: 06/26/19 Status: Orderedtopiramate 50 mg oral tablet See Instructions, TAKE 1.5 TABLET BY MOUTH EVERYDAY AT BEDTIME, # 45 tablet, 6 Refills, 05/08/20 15:55:00 EDT, [facility], 152, cm, 04/16/20 5:09:00 EDT, Height, [...] oldest 1 2 3 [Reference Range]: Height 122 cm 122 cm 122 cm (05/15/20 6:33 AM) (05/15/20 3:35 AM) (05/15/20 12: 35 AM) Weight 97 kg 97 kg 97 kg (05/15/20 6:33 AM) (05/15/20 3:35 AM) (05/14/20 11: 21 PM) Oxygen Saturation [94-100 99 % 100 % 100 % %] (05/15/20 10:00 AM) (05/15/20 6:33 AM) (05/15/20 3: 35 AM) Pulse Rate [55-90 bpm] 93 bpm 73 bpm 80 bpm *H* (05/15/20 6:33 AM) (05/15/20 3:35 AM) (05/15/20 10:00 AM) Body Mass Index 65.17 65.17 [18.5-24.99] *>HHI* *>HHI* (05/15/20 6:33 AM) (05/15/20 3:35 AM) Blood Pressure 139/87 mm Hg 111/75 mm Hg 146/85 mm Hg [90-138/55-84 mm Hg] *H* (05/15/20 6:33 AM) *H* (05/15/20 10:00 AM) (05/15/20 3:35 AM) Respiratory Rate [16-30 16 br/min 16 br/min 18 br/mi n br/min] (05/15/20 6:33 AM) (05/15/20 3:35 AM) (05/15/20 12: 35 AM) Temperature [96.8-100.4 98.1 DegF 97.2 DegF 97.9 Deg F DegF] (05/15/20 6:33 AM) (05/15/20 3:35 AM) (05/15/20 12: 35 AM) Mode of Delivery (Oxygen) Room air Room air Room a ir (05/15/20 10:00 AM) (05/15/20 6:33 AM) (05/15/20 3: 35 AM) Blood pressure sites Arm, left Arm, left Arm, right (05/15/20 10:00 AM) (05/15/20 6:33 AM) (05/15/20 3: 35 AM) Temperature Route Temporal Temporal Oral (05/15/20 6:33 AM) (05/15/20 3:35 AM) (05/15/20 12: 35 AM) Dry Weight 97 kg 97 kg 97 kg (05/15/20 6:33 AM) (05/15/20 3:35 AM) (05/14/20 11: 21 PM) Weight Obtained Via Patient/family stated (05/14/20 11:21 PM) Social History Social History Type Response Smoking Status Former smoker, quit more delmar n 30 days ago entered on: 05/14/20 Sex
--- OUTSIDE RECORDS SUMMARY | 2022-10-10 10:12 | XMS_ITS | Continuity of Care Document ---
:1970 Author Organization [facility] Address [address] [place] [address]- Care Team Providers Name Role Phone Eusebio Payton DO Primary Care Physician Encounter [facility] Date(s): 07/11/22 - 08/10/22 [facility] [address] [place] [id number] Attending Physician: Héctor Alfaro Admitting Physician: Admtr, [id number] Referring Physician: Admtr, [...] mL, Inhalation, 4 times a day, # 855 mL, 11 Refills, Maintenance, 10/18/18 11:45:00 EST, [...] 16:09:00 EDT, Inhaler, Route to Pharmacy Electronically, [id number], [facility]/pharmacy #[id number], ICD Code J45.20 Start Date: 04/09/18 [...] 90 tablet, 11 Refills, 06/12/22 13:04:00 EDT, [facility]/pharmacy #[id number], please refill early, 154, cm, 04/21/22 [...] Care Team PersonnelName: Eusebio Payton DO Address: [address] [place] [address] [address] [place], [place] [address]
--- OUTSIDE RECORDS SUMMARY | 2022-10-10 10:12 | XMS_ITS | Continuity of Care Document ---
:1970 Author Organization [facility] Address Unavailable , Care Team Providers Name Role Phone Eusebio Payton DO Primary Care Physician Encounter [facility] Date(s): 06/12/22 - 06/19/22 [facility] Attending Physician: Not on Staff, Attending MD Allergies, Adverse Reactions, Alerts Substance Reaction [...] 16:09:00 EDT, Inhaler, Route to Pharmacy Electronically, [id number], [facility]/pharmacy #[id number], ICD Code J45.20 Start Date: 04/09/18 [...] 90 tablet, 11 Refills, 06/12/22 13:04:00 EDT, [facility]/pharmacy #[id number], please refill early, 154, cm, 04/21/22 [...]
--- OUTSIDE RECORDS SUMMARY | 2022-10-10 10:12 | XMS_ITS | Continuity of Care Document ---
:1970 Author Organization [facility] Address [address] [place] [address]- Care Team Providers Name Role Phone Eusebio Payton DO Primary Care Physician Encounter [facility] Date(s): 12/08/19 - 12/08/[address] [address]- [facility] Discharge Disposition: A-D/C Home Attending Physician: Emile Ruiz MD Admitting Physician: Emile Ruiz MD Referring Physician: Not on Staff, Referring [...] 2 PUFFS BY MOUTH TWICE A DAY, [facility]/pharmacy #[id number] Start Date: 08/16/19 Status: OrderedhydrOXYzine pamoate 50 [...] 16:09:00 EDT, Inhaler, Route to Pharmacy Electronically, [id number], [facility]/pharmacy #0315, ICD Code J45.20 Start Date: 04/09/18 Status: OrderedSEROquel 200 mg oral tablet 200 mg, 1, tablet, By Mouth, 2 times a day, # 60 tablet, Refills 5, Tot. Refills 5, Maintenance, 12/29/17 15:09:37, Route to Pharmacy Electronically, [id number], [facility]/pharmacy #0315 Start Date: 12/29/17 Stop Date: 06/27/18 Status: Orderedsertraline 100 mg oral tablet 1 tablet = 100 mg, By Mouth, Daily, # 30 tablet, 0 Refills, Maintenance, 06/26/19 17:17:27 EDT, Tablet Start Date: 8/4/19 Status: OrderedTopamax 50 mg oral tablet 1 tablet = 50 mg, By Mouth, Daily at bedtime, # 30 tablet, 4 Refills, Maintenance, 11/04/19 15:47:48EST, Tablet, [facility]/pharmacy #0315, 152, cm, 11/04/19 15:24:09 EST, Height, 99.5, kg, 07/17/19 4:19:11 EDT, Dry Weight Start Date: 11/04/19 Stop Date: 04/02/20 Status: Ordered Problem List Condition Effective Dates Status Health Status Informant Asthma(Confirmed) Active Asthma with COPD(Confirmed) Active Depression(Confirmed) Active Fibromyalgia(Confirmed) Active GERD (gastroesophageal reflux Active disease)(Confirmed) PTSD (post-traumatic stress Active disorder)(Confirmed) Self mutilating behavior(Confirmed) Active Sleep apnea(Confirmed) Active Results Orders for Microbiology Reports Name Date Urine Culture (URINE CULTURE) 12/08/19 Microbiology Reports TEST:Urine Culture STATUS:Unauthenticated BODY SITE: SOURCE:URINE COLLECTED DATE/TIME:12/08/19 10:46 AMUrine Culture SPECIMEN DESCRIPTION : URINE SPECIAL REQUESTS : NONE Reflexed from [id number] REPORT STATUS : PRELIMINARY REPORT Vital Signs Most recent to oldest [Reference Range]: 1 2 Height 151 cm 151 cm (12/08/19 11:11 AM) (12/08/19 10:44 AM) Weight 103 kg 103 kg (12/08/19 11:11 AM) (12/08/19 10:44 AM) Oxygen Saturation [94-100 %] 97 % (12/08/19 11:11 AM) Pulse Rate [55-90 bpm] 86 bpm (12/08/19 11:11 AM) Body Mass Index [18.5-24.99] 45.17 *>HHI* (12/08/19 11:11 AM) Blood Pressure [90-138/55-84 mm Hg] 128/86 mm Hg (12/08/19 11:11 AM) Temperature [96.8-100.4 DegF] 98.2 DegF (12/08/19 11:11 AM) Mode of Delivery (Oxygen) Room air (12/08/19 11:11 AM) Blood pressure sites Arm, left (12/08/19 11:11 AM) Temperature Route Temporal (12/08/19 11:11 AM) Dry Weight 103 kg 103 kg (12/08/19 11:11 AM) (12/08/19 10:44 AM) Weight Obtained Via Patient/family stated (12/08/19 10:44 AM) Dry Weight Obtained Via Patient/family stated (12/08/19 10:44 AM) Social History Social History Type Response Smoking Status Current every day smoker; Ty pe: Cigarettes; Started at age: 45; entered on: 07/27/18 Sex
--- OUTSIDE RECORDS SUMMARY | 2022-10-10 10:12 | XMS_ITS | Continuity of Care Document ---
:1970 Author Organization [facility] Address [address] [place] [address]- Care Team Providers Name Role Phone Eusebio Payton DO Primary Care Physician Encounter [facility] Date(s): 04/16/20 - 04/16/[address] [address]- [facility] Discharge Disposition: A-D/C Home Attending Physician: Luke REAL, Cydney Pierson Admitting Physician: Luke REAL, Cydney Pierson Referring Physician: Not on Staff, Referring MD [...] 2 PUFFS BY MOUTH TWICE A DAY, [facility]/pharmacy #0315 Start Date: 08/16/19 Status: [...] 16:09:00 EDT, Inhaler, Route to Pharmacy Electronically, [id number], [facility]/pharmacy #0315, ICD Code J45.20 Start Date: 04/09/18 Status: OrderedSEROquel 200 mg oral tablet 200 mg, 1, tablet, By Mouth, 2 times a day, # 60 tablet, Refills 5, Tot. Refills 5, Maintenance, 12/29/17 15:09:37, Route to Pharmacy Electronically, [id number], [facility]/pharmacy #0315 Start Date: 12/29/17 Stop Date: 06/27/18 Status: Orderedsertraline 100 mg oral tablet 1 tablet = 100 mg, By Mouth, Daily, # 30 tablet, 0 Refills, Maintenance, 06/26/19 17:17:27 EDT, Tablet Start Date: 06/26/19 Status: Orderedtopiramate 50 mg oral tablet See Instructions, TAKE 1.5 TABLET BY MOUTH EVERYDAY AT BEDTIME, # 45 tablet, 4 Refills, 01/19/20 14:26:00 EST, [facility], 152, cm, 01/19/20 13:47:00 EST, Height, [...] Exam Date Time Procedure Performing Provider Status 04/16/20 1:54 AM Chest Portable Doan , Thuthao T; Auth (Verified ) Notes:(Chest Portable) Reason For Exam: CoughRESULT: Chest Portable Chest Portable Refer to EMR; Reason: Cough; Clinical Question(s): Pneumonia COMPARISON: 10/26/2019 FINDINGS: LINES AND TUBES: None. LUNGS AND PLEURA: Minimal right basilar airspace disease. IMPRESSION: Minimal right basilar airspace disease and linear densities. Findings may be secondary to atelectasis but pneumonia is not excluded. Low suspicion for pneumonia was documented in the clinical note. WSN: [id number] Ordering Physician: Cydney Butler Dictated By: Brendon Oakley MD Dictated Date/Time: 04/16/20 8:04 am Reviewed By: Brendon Oakley MD Signed By: Brendon Oakley MD Signed Date/Time: 04/16/20 8:04 am Transcribed By: DARRYL Transcribed Date/Time: 04/16/20 8:01 am Vital Signs Most recent to oldest 1 2 3 [Reference Range]: Height 152 cm 152 cm 152 cm (04/16/20 5:09 AM) (04/16/20 3:29 AM) (04/16/20 1:5 8 AM) Weight 100 kg 100 kg 100 kg (04/16/20 5:09 AM) (04/16/20:29 AM) (04/16/20 1: 8 AM) Oxygen Saturation [94-100 %] 100 % 97 % 99 % (04/16/20 5:09 AM) (04/16/20:29 AM) (04/16/20 1:5 8 AM) Pulse Rate [55-90 bpm] 80 bpm 83 bpm 72 bpm (04/16/20 5:09 AM) (04/16/20 3:29 AM) (04/16/20 1:5 8 AM) Body Mass Index [18.5-24.99] 43.28 43.28 43. 28 *>HHI* *>HHI* *>HHI* (04/16/20 5:09 AM) (04/16/20 3:29 AM) (04/16/20 1:5 8 AM) Blood Pressure [90-138/55-84 102/64 mm Hg 101/57 mm Hg 101 /65 mm Hg mm Hg] (04/16/20 5:09 AM) (04/16/20 3:29 AM) (04/16/20 1:5 8 AM) Respiratory Rate [16-30 16 br/min 16 br/min 16 br/mi n br/min] (04/16/20 5:09 AM) (04/16/20 3:29 AM) (04/16/20 2:3 2 AM) Temperature [96.8-100.4 DegF] 97.6 DegF (04/16/20:25 AM) Mode of Delivery (Oxygen) Room air Room air Room a ir (04/16/20 5:09 AM) (04/16/20 3:29 AM) (04/16/20 1:5 8 AM) Blood pressure sites Arm, left Arm, right Arm, left (04/16/20:09 AM) (04/16/20 3:29 AM) (04/16/20 1:5 8 AM) Temperature Route Oral (04/16/20 12:25 AM) Dry Weight 100 kg 100 kg 100 kg (04/16/20 5:09 AM) (04/16/20 3:29 AM) (04/16/20 1:5 8 AM) Social History Social History Type Response Smoking Status Current every day smoker; Ty pe: Cigarettes; Started at age: 45; entered on: 07/27/18 Sex
--- OUTSIDE RECORDS SUMMARY | 2022-10-10 10:12 | XMS_ITS | Continuity of Care Document ---
:1970 Author Organization [facility] Address Unavailable , Care Team Providers Name Role Phone Eusebio Payton DO Primary Care Physician Encounter [facility] Date(s): 07/11/21 - 07/18/21 [facility] Attending Physician: Mira ALFARO, Vitor Barfield Allergies, Adverse Reactions, Alerts Substance Reaction Severity Status ciprofloxacin Active penicillin swell up can't swallow Active Keflex full body swelling hives Active Cymbalta lips and face swell Active Latex rash all over Active Other [...] PUFFS BY MOUTH TWICE A DAY, [id number] Start Date: 08/16/19 Status: OrderedFlovent Diskus Inhalation, [...] Refills, Maintenance, 12/01/20 5:34:00 EST, ER Tablet, [facility]/pharmacy #0315, Partial fill upon patient request [...] 16:09:00 EDT, Inhaler, Route to Pharmacy Electronically, [id number], [facility]/pharmacy #0315, ICD Code J45.20 Start [...] Maintenance, 12/29/17 15:09:37, Route to Pharmacy Electronically, [id number], [facility]/pharmacy #0315 Start Date: 12/29/17 Stop Date: 06/27/18 Status: Orderedtopiramate 50 mg oral tablet See Instructions, TAKE 1.5 TABLET BY MOUTH EVERYDAY AT BEDTIME, # 45 tablet, 8 Refills, 07/11/21 15:04:00 EDT, [facility]/pharmacy #0315, 150, cm, 06/07/21 15:59:00 EDT, Height, 61, kg, 05/03/21 7:53:00 EDT, Dry Weight Start Date: 07/11/21 Status: OrderedVitamin C 250 mg oral tablet [...]
--- OUTSIDE RECORDS SUMMARY | 2022-10-10 10:12 | XMS_ITS | Continuity of Care Document ---
:1970 Author Organization [facility] Address [address] [place] [address]- Care Team Providers Name Role Phone Eusebio Payton DO Primary Care Physician Encounter [facility] Date(s): 04/05/21 - 06/06/21 [facility] [address], [place] [address] Attending Physician: Jennifer Alford MD Referring Physician: Eusebio [...] 2 PUFFS BY MOUTH TWICE A DAY, [facility]/pharmacy #[id number] Start Date: 08/16/19 Status: OrderedFlovent [...] Refills, Maintenance, 12/01/20 5:34:00 EST, ER Tablet, [facility]/pharmacy #[id number], Partial fill upon patient request [...] 16:09:00 EDT, Inhaler, Route to Pharmacy Electronically, [id number], [facility]/pharmacy #[id number], ICD Code J45.20 Start Date: [...] Maintenance, 12/29/17 15:09:37, Route to Pharmacy Electronically, [id number], [facility]/pharmacy #[id number] Start Date: 12/29/17 Stop Date: 06/27/18 Status: Orderedtopiramate 50 mg oral tablet See Instructions, TAKE 1.5 TABLET BY MOUTH EVERYDAY AT BEDTIME, # 45 tablet, 6 Refills, 05/08/20 15:55:00 EDT, [facility], 152, cm, 04/16/20 5:09:00 EDT, Height, [...]
--- OUTSIDE RECORDS SUMMARY | 2022-10-10 10:12 | XMS_ITS | Continuity of Care Document ---
:1970 Author Organization [facility] Address [address] [place] [address]- Care Team Providers Name Role Phone Eusebio Payton DO Primary Care Physician Encounter [facility] Date(s): 12/15/20 - 12/15/[address] [address]- Discharge Disposition: A-D/C Home Attending Physician: Luke [...] 2 PUFFS BY MOUTH TWICE A DAY, [facility]/pharmacy #[id number] Start Date: 08/16/19 Status: OrderedFlovent Diskus Inhalation, [...] 10/22/20 13:11:00 EST, Route to Pharmacy Electronically, [facility]/pharmacy #[id number], Partial fill upon patient request, 150, [...] Refills, Maintenance, 12/01/20 5:34:00 EST, ER Tablet, [facility]/pharmacy #[id number], Partial fill upon patient request if the prescription is for a schedule II opioid drug., 173, cm, 12/01/20 3:52:00 ES... Start Date: 12/01/20 Stop Date: 12/08/20 Status: OrderedProAir HFA 90 mcg/inh inhalation aerosol with adapter 180 mcg, 2, puffs, Inhalation, 4 times a day, PRN, # 1 each, Refills 11, Tot. Refills 11, Maintenance, 04/09/18 16:09:00 EDT, Inhaler, Route to Pharmacy Electronically, [id number], [facility]/pharmacy #[id number], ICD Code J45.20 Start Date: 04/09/18 Status: OrderedSEROquel 200 mg oral tablet 200 mg, 1, tablet, By Mouth, 2 times a day, # 60 tablet, Refills 5, Tot. Refills 5, Maintenance, 12/29/17 15:09:37, Route to Pharmacy Electronically, [id number], [facility]/pharmacy #[id number] Start Date: 12/29/17 Stop Date: 06/27/18 Status: Orderedspironolactone 25 mg oral tablet 12.5 mg, 0.5, tablet, By Mouth, Daily, # 10 tablet, Refills 0, Tot. Refills 0, Maintenance, 216:54:00 EST, Route to Pharmacy Electronically, [facility]/pharmacy #[id number], Partial fill upon patient requestif the prescription is for a schedule II opioid d... Start Date: 12/15/20 Status: Orderedtopiramate 50 mg oral tablet See Instructions, TAKE 1.5 TABLET BY MOUTH EVERYDAY AT BEDTIME, # 45 tablet, 6 Refills, 05/08/20 15:55:00 EDT, [facility], 152, cm, 04/16/20 5:09:00 EDT, Height, [...] Exam Date Time Procedure Performing Provider Status 12/15/20 5:43 AM Chest Portable Elisha Aguirre; Auth (Justin jj) Notes:(Chest Portable) Reason For Exam: chest pain;Other:RESULT: Chest Portable Chest Portable Hx of Present Illness: patient wants answers for medications shes taking at home - reporting cp and leg swelling- onset months ago - takes potassium at home - makes her puke ; Reason: Other:; chest pain; Clinical Question(s): Other: COMPARISON: 10/28/2020 and 10/19/2020. FINDINGS: LINES AND TUBES: None. LUNGS AND PLEURA: Again demonstrated are hypoexpanded lungs. There is mild pulmonary vascular congestion. Persistent left lung base opacity. There is no evidence of a pneumothorax or pleural effusion. HEART, MEDIASTINUM AND ROLO: Heart is normal in size. Normal upper mediastinal and hilar contour. BONES AND SOFT TISSUES: No acute abnormality. IMPRESSION: 1. Persistent left lung base opacity compatible with atelectasis versus airspace disease. 2. Mild pulmonary vascular congestion. WSN: [id number] Ordering Physician: Cydney Butler Dictated By: Kelli Garcia MD Dictated Date/Time: 12/15/20 6:12 am Reviewed By: Kelli Garcia MD Signed By: Kelli Garcia MD Signed Date/Time: 12/15/20 6:12 am Transcribed By: DARRYL Transcribed Date/Time: 12/15/20 6:10 am Vital Signs Most recent to oldest 1 2 3 [Reference Range]: Height 151 cm 151 cm 151 cm (12/15/20 6:59 AM) (12/15/20 6:51 AM) (12/15/20 5:1 6 AM) Weight 80 kg 80 kg 80 kg (12/15/20 6:59 AM) (12/15/20 6:51 AM) (12/15/20 5:1 6 AM) Oxygen Saturation [94-100 %] 100 % 96 % 100 % (12/15/20 7:10 AM) (12/15/20 6:51 AM) (12/15/20 5:1 4 AM) Pulse Rate [55-90 bpm] 88 bpm 88 bpm 88 bpm (12/15/20 7:10 AM) (12/15/20 6:51 AM) (12/15/20 5:1 4 AM) Body Mass Index [18.5-24.99] 35.09 35.09 35. 09 *>HHI* *>HHI* *>HHI* (12/15/20 6:59 AM) (12/15/20 6:51 AM) (12/15/20 5:1 4 AM) Blood Pressure [90-138/55-84 mm 93/55 mm Hg 98/65 mm Hg 108/53 mm Hg Hg] (12/15/20 7:10 AM) (12/15/20 6:59 AM) (12/15/20 5:1 4 AM) Respiratory Rate [16-30 br/min] 16 br/min 16 br/min 16 br/min (12/15/20 7:10 AM) (12/15/20 6:51 AM) (12/15/20 5:1 4 AM) Temperature [96.8-100.4 DegF] 98.2 DegF 98.1 DegF (12/15/20 7:10 AM) (12/15/20 5:14 AM) Mode of Delivery (Oxygen) Room air Room air Room a ir (12/15/20 7:10 AM) (12/15/20 6:51 AM) (12/15/20 5:1 4 AM) Blood pressure sites Arm, left Arm, left Arm, left (12/15/20 6:59 AM) (12/15/20 6:51 AM) (12/15/20 5:1 4 AM) Temperature Route Oral (12/15/20 5:14 AM) Dry Weight 80 kg 80 kg 80 kg (12/15/20 6:59 AM) (12/15/20 6:51 AM) (12/15/20 5:1 6 AM) Social History Social History Type Response Smoking Status Former smoker, quit more delmar n 30 days ago entered on: 10/01/20 Sex
--- OUTSIDE RECORDS SUMMARY | 2022-10-10 10:12 | XMS_ITS | Continuity of Care Document ---
:1970 Author Organization [facility] Address [address] [place] [address]- Care Team Providers Name Role Phone Eusebio Payton DO Primary Care Physician Encounter [facility] Date(s): 04/05/21 - 05/05/21 [facility] [address] [place] [id number] Allergies, Adverse Reactions, Alerts Substance Reaction Severity [...] PUFFS BY MOUTH TWICE A DAY, [facility]/pharmacy #[id number] Start Date: 08/16/19 Status: OrderedFlovent [...] Maintenance, 12/01/20 5:34:00 EST, ER Tablet, [facility]/pharmacy #[id number], Partial fill upon patient request [...] 16:09:00 EDT, Inhaler, Route to Pharmacy Electronically, [id number], [facility]/pharmacy #[id number], ICD Code J45.20 Start Date: [...] Maintenance, 12/29/17 15:09:37, Route to Pharmacy Electronically, [id number], [facility]/pharmacy #[id number] Start Date: 12/29/17 Stop Date: 06/27/18 Status: Orderedtopiramate 50 mg oral tablet See Instructions, TAKE 1.5 TABLET BY MOUTH EVERYDAY AT BEDTIME, # 45 tablet, 6 Refills, 05/08/20 15:55:00 EDT, [facility], 152, cm, 04/16/20 5:09:00 EDT, Height, [...]
--- OUTSIDE RECORDS SUMMARY | 2022-10-10 10:12 | XMS_ITS | Continuity of Care Document ---
:1970 Author Organization [facility] Address [address] [place] [address]- Care Team Providers Name Role Phone Eusebio Payton DO Primary Care Physician Encounter [facility] Date(s): 04/05/21 - 06/09/21 [facility] [address], [place] [address] Attending Physician: Jennifer Alford MD Admitting Physician: Jennifer Alford MD Referring Physician: Eusebio Payton DO Allergies, Adverse Reactions, Alerts Substance Reaction Severity Status ciprofloxacin Active Latex rash all over Active Cymbalta lips and face swell Active penicillin swell up can't swallow Active Keflex full body swelling hives Active Other Food Allergy swell up Active coconut oil Immunizations Given and Recorded Vaccine Date Status Refusal Reason SARS-CoV-2 (COVID-19) mRNA-2503 vaccine 04/16/21 Recorded tetanus/diphtheria/pertussis, acel(Tdap) 09/26/09 Recorde [...] Refills, Maintenance, 12/01/20 5:34:00 EST, ER Tablet, [facility]/pharmacy #[id number], Partial fill upon patient request if the prescription is for a schedule II opioid drug., 173, cm, 12/01/20 3:52:00 ES... Start Date: 12/01/20 Stop Date: 12/08/20 Status: OrderedProAir HFA 90 mcg/inh inhalation aerosol with adapter 180 mcg, 2, puffs, Inhalation, 4 times a day, PRN, # 1 each, Refills 11, Tot. Refills 11, Maintenance, 04/09/18 16:09:00 EDT, Inhaler, Route to Pharmacy Electronically, [id number], [facility]/pharmacy #[id number], ICD Code J45.20 Start Date: 04/09/18 [...] Maintenance, 12/29/17 15:09:37, Route to Pharmacy Electronically, [id number], [facility]/pharmacy #[id number] Start Date: 12/29/17 Stop Date: 06/27/18 Status: Orderedtopiramate 50 mg oral tablet See Instructions, TAKE 1.5 TABLET BY MOUTH EVERYDAY AT BEDTIME, # 45 tablet, 6 Refills, 05/08/20 15:55:00 EDT, [facility], 152, cm, 04/16/20 5:09:00 EDT, Height, [...]
--- OUTSIDE RECORDS SUMMARY | 2022-10-10 10:12 | XMS_ITS | Continuity of Care Document ---
:1970 Author Organization [facility] Address [address] [place] [address]- Care Team Providers Name Role Phone Eusebio Payton DO Primary Care Physician Encounter [facility] Date(s): 12/27/20 - 01/26/[address] [place], [place] [address] Allergies, Adverse Reactions, Alerts Substance Reaction [...] PUFFS BY MOUTH TWICE A DAY, [id number] Start Date: 08/16/19 Status: OrderedhydrOXYzine pamoate 50 [...] 10/22/20 13:11:00 EST, Route to Pharmacy Electronically, [facility]/pharmacy #[id number], Partial fill upon patient request, [...] Maintenance, 12/01/20 5:34:00 EST, ER Tablet, [facility]/pharmacy #[id number], Partial fill upon patient request [...] 16:09:00 EDT, Inhaler, Route to Pharmacy Electronically, [id number], [facility]/pharmacy #[id number], ICD Code J45.20 Start Date: 04/09/18 Status: OrderedSEROquel 200 mg oral tablet 200 mg, 1, tablet, By Mouth, 2 times a day, # 60 tablet, Refills 5, Tot. Refills 5, Maintenance, 12/29/17 15:09:37, Route to Pharmacy Electronically, [id number], [facility]/pharmacy #[id number] Start Date: 12/29/17 Stop Date: 06/27/18 Status: Orderedspironolactone 25 mg oral tablet 12.5 mg, 0.5, tablet, By Mouth, Daily, # 10 tablet, Refills 0, Tot. Refills 0, Maintenance, :54:00 EST, Route to Pharmacy Electronically, [facility]/pharmacy #[id number], Partial fill upon patient requestif the prescription is for a schedule II opioid d... Start Date: 12/15/20 Status: Orderedtopiramate 50 mg oral tablet See Instructions, TAKE 1.5 TABLET BY MOUTH EVERYDAY AT BEDTIME, # 45 tablet, 6 Refills, 05/08/20 15:55:00 EDT, [facility], 152, cm, 04/16/20 5:09:00 EDT, Height, [...]
--- OUTSIDE RECORDS SUMMARY | 2022-10-10 10:12 | XMS_ITS | Continuity of Care Document ---
:1970 Author Organization [facility] Address [address] [place] [address], 3rd [facility], [address] [place] [address]- Care Team Providers Name Role Phone Eusebio Payton DO Primary Care Physician [place] [facility] [place] [id number] Date(s): 11/04/19 - 11/14/19 [facility] [address] [facility], 3rd Floor, [address] [place] [address] [facility] Attending Physician: Admtr, Ar8 Admitting Physician: Admtr, Ar8 Referring Physician: Admtr, Ar8 Allergies, Adverse Reactions, [...] 2 PUFFS BY MOUTH TWICE A DAY, [facility]/pharmacy #[id number] Start Date: 08/16/19 Status: OrderedhydrOXYzine pamoate 50 [...] 16:09:00 EDT, Inhaler, Route to Pharmacy Electronically, [id number], [facility]/pharmacy #0315, ICD Code J45.20 Start Date: 04/09/18 Status: OrderedSEROquel 200 mg oral tablet 200 mg, 1, tablet, By Mouth, 2 times a day, # 60 tablet, Refills 5, Tot. Refills 5, Maintenance, 12/29/17 15:09:37, Route to Pharmacy Electronically, [id number], [facility]/pharmacy #[id number] Start Date: 12/29/17 Stop Date: 06/27/18 Status: Orderedsertraline 100 mg oral tablet 1 tablet = 100 mg, By Mouth, Daily, # 30 tablet, 0 Refills, Maintenance, 06/26/19 17:17:27 EDT, Tablet Start Date: 8/4/19 Status: OrderedTopamax 50 mg oral tablet 1 tablet = 50 mg, By Mouth, Daily at bedtime, # 30 tablet, 4 Refills, Maintenance, 11/04/19 15:47:48EST, Tablet, [facility]/pharmacy #[id number], 152, cm, 11/04/19 15:24:09 EST, Height, [...]
--- OUTSIDE RECORDS SUMMARY | 2022-10-10 10:12 | XMS_ITS | Continuity of Care Document ---
:1970 Author Organization [facility] Address [address] [place] [address]- Care Team Providers Name Role Phone Eusebio Payton DO Primary Care Physician Encounter [facility] Date(s): 04/12/22 - 08/10/22 [facility] [address] [place], [place] [address] Attending Physician: Robert Herrera MD Admitting Physician: Robert Herrera MD Referring Physician: Robert Herrera MD Allergies, Adverse Reactions, [...] 16:09:00 EDT, Inhaler, Route to Pharmacy Electronically, [id number], [facility]/pharmacy #0315, ICD Code J45.20 [...] 90 tablet, 11 Refills, 06/12/22 13:04:00 EDT, [facility], please refill early, 154, cm, 04/21/22 [...] Care Team PersonnelName: Eusebio Payton DO Address: [address] [place] [address] [address] [place] [address]-
--- OUTSIDE RECORDS SUMMARY | 2022-10-10 10:12 | XMS_ITS | Continuity of Care Document ---
:1970 Author Organization [facility] Address [address] [place] [address]- Care Team Providers Name Role Phone Eusebio Payton DO Primary Care Physician Encounter [facility] Date(s): 06/12/20 - 06/12/[address] [address]- [facility] Discharge Disposition: A-D/C Home Attending Physician: James Barber MD Admitting Physician: James Barber MD Referring Physician: Not on Staff, Referring [...] PUFFS BY MOUTH TWICE A DAY, [facility]/pharmacy #0315 Start Date: 08/16/19 Status: OrderedFlovent [...] 16:09:00 EDT, Inhaler, Route to Pharmacy Electronically, [id number], [facility]/pharmacy #0315, ICD Code J45.20 Start Date: 04/09/18 Status: OrderedSEROquel 200 mg oral tablet 200 mg, 1, tablet, By Mouth, 2 times a day, # 60 tablet, Refills 5, Tot. Refills 5, Maintenance, 12/29/17 15:09:37, Route to Pharmacy Electronically, [id number], [facility]/pharmacy #0315 Start Date: 12/29/17 Stop Date: 06/27/18 Status: Orderedsertraline 100 mg oral tablet 1 tablet = 100 mg, By Mouth, Daily, # 30 tablet, 0 Refills, Maintenance, 06/26/19 17:17:27 EDT, Tablet Start Date: 06/26/19 Status: Orderedtopiramate 50 mg oral tablet See Instructions, TAKE 1.5 TABLET BY MOUTH EVERYDAY AT BEDTIME, # 45 tablet, 6 Refills, 05/08/20 15:55:00 EDT, [facility], 152, cm, 04/16/20 5:09:00 EDT, Height, [...] Exam Date Time Procedure Performing Provider Status 06/12/20 4:33 PM Tibia/Fibula 2 Views Left Anais Farris ( Verified) Notes:(Tibia/Fibula 2 Views Left) Reason For Exam: with Pain;TraumaRESULT: Tibia/Fibula 2 Views Left Knee 3 Views Left, Tibia/Fibula 2 Views Left Reason: Trauma; with Pain Clinical Question(s): Fracture Hx of Present Illness: reports chronic weakness and left leg pain. reports multiple falls related hector leg pain COMPARISON: Knee radiographs 02/04/2020. FINDINGS: There is no evidence of acute or healing fracture, dislocation or bone lesion. Moderate tricompartmental spurring and joint space narrowing. Focal osseous density in the anterior joint could represent a loose body. No evidence of joint effusion. IMPRESSION: Moderate tricompartmental degenerative osteoarthritis with possible loose body, new from prior. I have personally reviewed the images and I agree with this report. WSN: [id number] Ordering Physician: Sridhar Cage Dictated By: Johnny Cook DO Dictated Date/Time: 06/12/20 4:47 pm Reviewed By: Brendon Garcia MD Signed By: Brendon Garcia MD Signed Date/Time: 06/12/20 4:52 pm Transcribed By: DARRYL Transcribed Date/Time: 06/12/20 4:43 pm Exam Date Time Procedure Performing Provider Status 06/12/20 4:33 PM Knee 3 Views Left Anais Farris (Verified ) Notes:(Knee 3 Views Left) Reason For Exam: with Pain;TraumaRESULT: Knee 3 Views Left Knee 3 Views Left, Tibia/Fibula 2 Views Left Reason: Trauma; with Pain Clinical Question(s): Fracture Hx of Present Illness: reports chronic weakness and left leg pain. reports multiple falls related hector leg pain COMPARISON: Knee radiographs 02/04/2020. FINDINGS: There is no evidence of acute or healing fracture, dislocation or bone lesion. Moderate tricompartmental spurring and joint space narrowing. Focal osseous density in the anterior joint could represent a loose body. No evidence of joint effusion. IMPRESSION: Moderate tricompartmental degenerative osteoarthritis with possible loose body, new from prior. I have personally reviewed the images and I agree with this report. WSN: [id number] Ordering Physician: Sridhar Cage Dictated By: Johnny Cook DO Dictated Date/Time: 06/12/20 4:47 pm Reviewed By: Brendon Garcia MD Signed By: Brendon Garcia MD Signed Date/Time: 06/12/20 4:52 pm Transcribed By: DARRYL Transcribed Date/Time: 06/12/20 4:43 pm Exam Date Time Procedure Performing Provider Status 06/12/20 4:33 PM Shoulder Min 2 Views Left Anais Farris ( Verified) Notes:(Shoulder Min 2 Views Left) Reason For Exam: with Pain;TraumaRESULT: Shoulder Min 2 Views Left Shoulder Min 2 Views Left Reason: Trauma; with Pain Clinical Question(s): Fracture Hx of Present Illness: i feel weak like i pinched a nerve or something in my shoulder COMPARISON: 11/18/2017 FINDINGS: No fracture or dislocation. No arthritic change of the glenohumeral joint. Normal AC joint and portions of the clavicle included on the exam. No calcification of the rotator cuff. IMPRESSION: No acute osseous abnormality. I have personally reviewed the images and I agree with this report. WSN: [id number] Ordering Physician: Sridhar Cage Dictated By: Johnny Cook DO Dictated Date/Time: 06/12/20 4:41 pm Reviewed By: Brendon Garcia MD Signed By: Brendon Garcia MD Signed Date/Time: 06/12/20 4:46 pm Transcribed By: DARRLY Transcribed Date/Time: 06/12/20 4:36 pm Vital Signs Most recent to oldest 1 2 3 [Reference Range]: Height 0 cm 0 cm (06/12/20 2:38 PM) (06/12/20 11:28 AM) Weight 100 kg 100 kg (06/12/20 2:38 PM) (06/12/20 11:28 AM) Oxygen Saturation [94-100 100 % 100 % 100 % %] (06/12/20 7:24 PM) (06/12/20 2:38 PM) (06/12/20 11: 28 AM) Pulse Rate [55-90 bpm] 67 bpm 85 bpm 73 bpm (06/12/20 7:24 PM) (06/12/20 2:38 PM) (06/12/20 11: 28 AM) Blood Pressure 144/98 mm Hg 145/69 mm Hg 116/90 mm Hg [90-138/55-84 mm Hg] *H* *H* (06/12/20 11 :28 AM) (06/12/20 7:24 PM) (06/12/20 2:38 PM) Respiratory Rate [16-30 20 br/min 19 br/min 16 br/mi n br/min] (06/12/20 7:24 PM) (06/12/20 2:38 PM) (06/12/20 11: 28 AM) Temperature [96.8-100.4 97.7 DegF 98.1 DegF DegF] (06/12/20 2:38 PM) (06/12/20 11:28 AM) Mode of Delivery (Oxygen) Room air Room air Room a ir (06/12/20 7:24 PM) (06/12/20 2:38 PM) (06/12/20 11: 28 AM) Blood pressure sites Arm, left Arm, left Arm, left (06/12/20 7:24 PM) (06/12/20 2:38 PM) (06/12/20 11: 28 AM) Temperature Route Temporal Oral (06/12/20 2:38 PM) (06/12/20 11:28 AM) Dry Weight 100 kg 100 kg (06/12/20 2:38 PM) (06/12/20 11:28 AM) Weight Obtained Via Patient/family stated (06/12/20 11:28 AM) Dry Weight Obtained Via Patient/family stated (06/12/20 11:28 AM) Social History Social History Type Response Smoking Status Former smoker, quit more delmar n 30 days ago entered on: 05/14/20 Sex
--- OUTSIDE RECORDS SUMMARY | 2022-10-10 10:12 | XMS_ITS | Continuity of Care Document ---
:1970 Author Organization [facility] Address [address] [place] [address]- Care Team Providers Name Role Phone Eusebio Payton DO Primary Care Physician [place] [facility] 06/07/21 - 07/07/21 [facility] [address] [place], [place] [address] Attending Physician: Héctor Alfaro Admitting Physician: AdmtrHéctor [...] 2 PUFFS BY MOUTH TWICE A DAY, [facility]/pharmacy #[id number] Start Date: 08/16/19 Status: OrderedFlovent Diskus Inhalation, [...] Refills, Maintenance, 12/01/20 5:34:00 EST, ER Tablet, [facility]/pharmacy #0315, Partial fill upon patient request [...] 16:09:00 EDT, Inhaler, Route to Pharmacy Electronically, [id number], [facility]/pharmacy #0315, ICD Code J45.20 Start Date: [...] Maintenance, 12/29/17 15:09:37, Route to Pharmacy Electronically, [id number], [facility] Start Date: 12/29/17 Stop Date: 06/27/18 Status: Orderedtopiramate 50 mg oral tablet See Instructions, TAKE 1.5 TABLET BY MOUTH EVERYDAY AT BEDTIME, # 45 tablet, 6 Refills, 05/08/20 15:55:00 EDT, [facility], 152, cm, 04/16/20 5:09:00 EDT, Height, [...]
--- OUTSIDE RECORDS SUMMARY | 2022-10-10 10:12 | XMS_ITS | Continuity of Care Document ---
:1970 Author Organization [facility] Address [address] [place] [address]- Care Team Providers Name Role Phone Eusebio Payton DO Primary Care Physician [place] [facility] Date(s): 07/18/22 - 08/17/22 [facility] [address] [place] [address] Attending Physician: Héctor Alfaro Admitting Physician: AdmtrHéctor [...] 16:09:00 EDT, Inhaler, Route to Pharmacy Electronically, [id number], [facility]/pharmacy #[id number], ICD Code J45.20 [...] 90 tablet, 11 Refills, 06/12/22 13:04:00 EDT, [facility]/pharmacy #[id number], please refill early, 154, cm, 04/21/22 [...] Care Team PersonnelName: Eusebio Payton DO Address: [address] [place] [address] [address] [place], [place] [address]
--- OUTSIDE RECORDS SUMMARY | 2022-10-10 10:12 | XMS_ITS | Continuity of Care Document ---
:1970 Author Organization [facility] Address [address] [place] [address]- Care Team Providers Name Role Phone Eusebio Payton DO Primary Care Physician Encounter [facility] Date(s): 11/05/19 - 11/05/[address] [address]- [facility] Encounter Diagnosis Chronic lower extremity pain (Final) - 11/05/19 Discharge Disposition: A-D/C Home Attending Physician: James Barber MD Admitting Physician: James Barber MD Referring Physician: Not on Staff, Referring MD Allergies, Adverse Reactions, Alerts Substance Reaction Severity Status ciprofloxacin Active penicillin swell up can't swallow Active Keflex full body swelling hives Active Latex rash all over Active Other Food Allergy swell up Active coconut oil Cymbalta lips and face swell Active Medications acetaminophen-HYDROcodone 325 mg-5 mg oral tablet 1 tablet, By Mouth, 3 times a day, PRN for pain, for 3 days, # 9 tablet, 0 Refills, Acute 11/08/19 16:27:58 EST, 11/05/19 16:27:58 EST, Tablet, Partial fill upon patient request Start Date: 11/05/19 Stop Date: 11/08/19 Status: Orderedalbuterol-ipratropium 3 mg-0.5 mg/3 ml inhalation [...] 2 PUFFS BY MOUTH TWICE A DAY, [facility]/pharmacy #[id number] Start Date: 08/16/19 Status: [...] 16:09:00 EDT, Inhaler, Route to Pharmacy Electronically, [id number], [facility]/pharmacy #[id number], ICD Code J45.20 Start Date: 04/09/18 Status: OrderedSEROquel 200 mg oral tablet 200 mg, 1, tablet, By Mouth, 2 times a day, # 60 tablet, Refills 5, Tot. Refills 5, Maintenance, 12/29/17 15:09:37, Route to Pharmacy Electronically, [id number], [facility]/pharmacy #0315 Start Date: 12/29/17 Stop Date: 06/27/18 Status: Orderedsertraline 100 mg oral tablet 1 tablet = 100 mg, By Mouth, Daily, # 30 tablet, 0 Refills, Maintenance, 06/26/19 17:17:27 EDT, Tablet Start Date: 06/26/19 Status: OrderedTopamax 50 mg oral tablet 1 tablet = 50 mg, By Mouth, Daily at bedtime, # 30 tablet, 4 Refills, Maintenance, 11/04/19 15:47:48EST, Tablet, [facility]/pharmacy #[id number], 152, cm, 11/04/19 15:24:09 EST, [...] oldest 1 2 3 [Reference Range]: Height 152.3 cm (11/05/19 11:34 AM) Weight 104.6 kg (11/05/19 11:34 AM) Oxygen Saturation [94-100 96 % 100 % 100 % %] (11/05/19 4:28 PM) (11/05/19 3:35 PM) (11/05/19 11:34 AM) Pulse Rate [55-90 bpm] 79 bpm 81 bpm 72 bpm (11/05/19 4:28 PM) (11/05/19 3:35 PM) (11/05/19 11:34 AM) Blood Pressure 113/69 mm Hg 125/77 mm Hg 127/64 mm Hg [90-138/55-84 mm Hg] (11/05/19 4:28 PM) (11/05/19 3:35 PM) (10/23 03/11 11:34 AM) Respiratory Rate [16-30 18 br/min 18 br/min 18 br/mi n br/min] (11/05/19 4:49 PM) (11/05/19 4:28 PM) (11/05/19 3:35 PM) Temperature [96.8-100.4 97.4 DegF 97.5 DegF 98.6 Deg F DegF] (11/05/19 4:28 PM) (11/05/19 3:35 PM) (11/05/19 11:34 AM) Mode of Delivery (Oxygen) Room air (11/05/19 11:34 AM) Blood pressure sites Arm, right (11/05/19 11:34 AM) Temperature Route Oral (11/05/19 11:34 AM) Dry Weight 104.6 kg (11/05/19 11:34 AM) Social History Social History Type Response Smoking Status Current every day smoker; Ty pe: Cigarettes; Started at age: 45; entered on: 07/27/18 Sex
--- OUTSIDE RECORDS SUMMARY | 2022-10-10 10:12 | XMS_ITS | Continuity of Care Document ---
:1970 Author Organization [facility] Address [address] [place] [address]- Care Team Providers Name Role Phone Eusebio Payton DO Primary Care Physician Encounter [facility] Date(s): 05/02/21 - 05/05/[address] [address] Discharge Disposition: A-D/C Home Attending Physician: Kali Bynum DO Admitting Physician: Julia REAL, Ronel Referring Physician: Mich Dubon MD Allergies, Adverse Reactions, Alerts Substance Reaction [...] 2 PUFFS BY MOUTH TWICE A DAY, [facility]/pharmacy #[id number] Start Date: 08/16/19 Status: OrderedFlovent Diskus Inhalation, [...] 16:09:00 EDT, Inhaler, Route to Pharmacy Electronically, [id number], [facility]/pharmacy #[id number], [...] Maintenance, 12/29/17 15:09:37, Route to Pharmacy Electronically, [id number], [facility] Start Date: 12/29/17 Stop Date: 06/27/18 Status: Orderedtopiramate 50 mg oral tablet See Instructions, TAKE 1.5 TABLET BY MOUTH EVERYDAY AT BEDTIME, # 45 tablet, 6 Refills, 05/08/20 15:55:00 EDT, [facility], 152, cm, 04/16/20 5:09:00 EDT, Height, [...] Results Orders for Microbiology Reports Name Date Stool Culture (Culture Stool) 05/02/21 Blood Culture 05/02/21 Urine Culture (URINE CULTURE) 05/02/21 Microbiology Reports TEST:Blood Culture STATUS:Unauthenticated BODY SITE: SOURCE:Blood COLLECTED DATE/TIME:05/02/21 10:40 PMBlood Culture SPECIMEN DESCRIPTION : BLOOD RAC SPECIAL REQUESTS : NONE CULTURE : NO GROWTH AFTER 48 HOURS REPORT STATUS : PRELIMINARY REPORT TEST:Urine Culture STATUS:Auth (Verified) BODY SITE: SOURCE:URINE COLLECTED DATE/TIME:05/02/21 9:28 PMUrine Culture SPECIMEN DESCRIPTION : URINE SPECIAL REQUESTS : NONE CULTURE : NO GROWTH REPORT STATUS : FINAL 05/04/2021TEST:Stool Culture STATUS:Auth (Verified) BODY SITE: SOURCE:STOOL COLLECTED DATE/TIME:05/02/21 9:17 PMStool Culture SPECIMEN DESCRIPTION : STOOL NOT IN DERRICK NONI PRESERVATIVE SPECIAL REQUESTS : NONE CULTURE : SPECIMEN NOT RECEIVED IN PARA-ERIN TRANSPORT MEDIA, UNABLE TO TEST FOR SHIGA TOXIN. CONTACT [facility] FOR COLLECTION AND TRANSPORT INSTRUCTION AND SUPPLIES NO SALMONELLA, SHIGELLA, CAMPYLOBACTER, AEROMONAS OR E.COLI O157:H7 ISOLATED. REPORT STATUS : FINAL 05/05/2021 Vital Signs Most recent to oldest 1 2 3 [Reference Range]: Height 150 cm 150 cm 150 cm (05/05/21 4:47 AM) (05/05/21 12:27 AM) (05/04/21 8: 21 PM) Weight 61 kg 61 kg 61 kg (05/03/21 7:53 AM) (05/03/21 5:00 AM) (05/03/21 4:5 4 AM) Oxygen Saturation [94-100 %] 98 % 98 % 97 % (05/05/21 4:47 AM) (05/05/21 12:27 AM) (05/04/21 8: 21 PM) Pulse Rate [55-90 bpm] 68 bpm 77 bpm 65 bpm (05/05/21 4:47 AM) (05/05/21 12:27 AM) (05/04/21 8: 21 PM) Body Mass Index [18.5-24.99] 27.11 27.11 27. 11 *H* *H* *H* (05/03/21 7:53 AM) (05/03/21 5:00 AM) (05/03/21 4:5 4 AM) Blood Pressure [90-138/55-84 91/61 mm Hg 99/53 mm Hg 104 /70 mm Hg mm Hg] (05/05/21 4:47 AM) (05/05/21 12:27 AM) (05/04/21 8: 21 PM) Respiratory Rate [16-30 20 br/min 18 br/min 20 br/mi n br/min] (05/05/21 4:47 AM) (05/05/21 12:27 AM) (05/04/21 8: 21 PM) Temperature [96.8-100.4 DegF] 98 DegF 97.7 DegF 98 DegF (05/05/21 4:47 AM) (05/05/21 12:27 AM) (05/04/21 8: 21 PM) Mode of Delivery (Oxygen) Room air Room air Room a ir (05/05/21 4:47 AM) (05/05/21 12:27 AM) (05/04/21 8: 21 PM) Blood pressure sites Arm, left Arm, left Arm, left (05/05/21 4:47 AM) (05/05/21 12:27 AM) (05/04/21 8: 21 PM) Temperature Route Oral Oral Oral (05/05/21 4:47 AM) (05/05/21 12:27 AM) (05/04/21 8: 21 PM) Dry Weight 61 kg 61 kg 61 kg (05/03/21 7:53 AM) (05/03/21 5:00 AM) (05/03/21 4:5 4 AM) Social History Social History Type Response Smoking Status Former smoker, quit more delmar n 30 days ago entered on: 10/01/20 Sex
--- OUTSIDE RECORDS SUMMARY | 2022-10-10 10:12 | XMS_ITS | Continuity of Care Document ---
:1970 Author Organization [facility] Address [address] [place] [address], 3rd [facility], [address] [place] [address]- Care Team Providers Name Role Phone Eusebio Payton DO Primary Care Physician [place] [facility] Date(s): 11/04/19 - 11/11/19 [facility] [address] [place] [address], [address] [facility], [address] [place] [address]- [facility] Attending Physician: Mira ALFARO, Vitor Barfield Referring Physician: Eusebio Payton DO Allergies, Adverse [...] 16:09:00 EDT, Inhaler, Route to Pharmacy Electronically, [id number], [facility]/pharmacy #0315, ICD Code J45.20 Start Date: 04/09/18 Status: OrderedSEROquel 200 mg oral tablet 200 mg, 1, tablet, By Mouth, 2 times a day, # 60 tablet, Refills 5, Tot. Refills 5, Maintenance, 12/29/17 15:09:37, Route to Pharmacy Electronically, [id number], [facility]/pharmacy #0315 Start Date: 12/29/17 Stop Date: 06/27/18 Status: Orderedsertraline 100 mg oral tablet 1 tablet = 100 mg, By Mouth, Daily, # 30 tablet, 0 Refills, Maintenance, 06/26/19 17:17:27 EDT, Tablet Start Date: 06/26/19 Status: OrderedTopamax 50 mg oral tablet 1 tablet = 50 mg, By Mouth, Daily at bedtime, # 30 tablet, 4 Refills, Maintenance, 11/04/19 15:47:48EST, Tablet, [facility]/pharmacy #0315, 152, cm, 11/04/19 15:24:09 EST, [...] oldest [Reference Range]: 1 Height 152 cm (11/04/19 3:24 PM) Weight 105.7 kg (11/04/19 3:24 PM) Oxygen Saturation [94-100 %] 98 % (11/04/19 3:24 PM) Pulse Rate [55-90 bpm] 76 bpm (11/04/19 3:24 PM) Body Mass Index [18.5-24.99] 45.75 *>HHI* (11/04/19 3:24 PM) Blood Pressure [90-138/55-84 mm Hg] 129/70 mm Hg (11/04/19 3:24 PM) Mode of Delivery (Oxygen) Room air (11/04/19 3:24 PM) Blood pressure sites Arm, left (11/04/19 3:24 PM) Social History Social History Type Response Smoking Status Current every day smoker; Ty pe: Cigarettes; Started at age: 45; entered on: 07/27/18 Sex
--- OUTSIDE RECORDS SUMMARY | 2022-10-10 10:12 | XMS_ITS | Continuity of Care Document ---
:1970 Author Organization [facility] Address Unavailable , Care Team Providers Name Role Phone Eusebio Payton DO Primary Care Physician En[place] [facility] [place] Date(s): 01/01/22 - 01/31/22 [facility] Allergies, Adverse Reactions, Alerts Substance Reaction Severity [...] PUFFS BY MOUTH TWICE A DAY, [id number] Start Date: 08/16/19 Status: OrderedFlovent Diskus Inhalation, [...] Refills, Maintenance, 12/01/20 5:34:00 EST, ER Tablet, [facility]/pharmacy #0315, Partial fill upon patient [...] 16:09:00 EDT, Inhaler, Route to Pharmacy Electronically, [id number], [facility]/pharmacy #0315, ICD Code J45.20 Start [...] Maintenance, 12/29/17 15:09:37, Route to Pharmacy Electronically, [id number], [facility]/pharmacy #0315 Start Date: 12/29/17 Stop Date: 06/27/18 Status: Orderedtopiramate 50 mg oral tablet See Instructions, Take 1/2 tablet in the AM and 2 1/2 tablet at bedtime, # 90 tablet, 11 Refills, 01/01/22 16:54:00 EST, [facility]/pharmacy #[id number], please refill early, 150, cm, [...]
--- OUTSIDE RECORDS SUMMARY | 2022-10-10 10:13 | XMS_ITS | Continuity of Care Document ---
:1970 Author Organization [facility] Address [address] [place] [address]- Care Team Providers Name Role Phone Eusebio Payton DO Primary Care Physician Encounter [facility] Date(s): 03/30/21 - 03/30/[address] [address]- Encounter Diagnosis Head contusion (Final) - 03/30/21 Discharge Disposition: A-D/C Home Attending Physician: Torito [...] 2 PUFFS BY MOUTH TWICE A DAY, [facility]/pharmacy #[id number] Start Date: 08/16/19 Status: OrderedhydrOXYzine pamoate 50 [...] 10/22/20 13:11:00 EST, Route to Pharmacy Electronically, [facility]/pharmacy #[id number], Partial fill upon patient request, [...] Refills, Maintenance, 12/01/20 5:34:00 EST, ER Tablet, [facility]/pharmacy #[id number], Partial fill upon patient [...] 16:09:00 EDT, Inhaler, Route to Pharmacy Electronically, [id number], [facility]/pharmacy #[id number], ICD Code J45.20 Start Date: 04/09/18 Status: OrderedSEROquel 200 mg oral tablet 200 mg, 1, tablet, By Mouth, 2 times a day, # 60 tablet, Refills 5, Tot. Refills 5, Maintenance, 12/29/17 15:09:37, Route to Pharmacy Electronically, [id number], [facility]/pharmacy #[id number] Start Date: 12/29/17 Stop Date: 06/27/18 Status: Orderedspironolactone 25 mg oral tablet 12.5 mg, 0.5, tablet, By Mouth, Daily, # 10 tablet, Refills 0, Tot. Refills 0, Maintenance, 216:54:00 EST, [id number] fill upon patient requestif the prescription is for a schedule II opioid d... Start Date: 12/15/20 Status: Orderedtopiramate 50 mg oral tablet See Instructions, TAKE 1.5 TABLET BY MOUTH EVERYDAY AT BEDTIME, # 45 tablet, 6 Refills, 05/08/20 15:55:00 EDT, [facility], 152, cm, 04/16/20 5:09:00 EDT, Height, [...] to oldest [Reference Range]: 1 2 Height 150 cm 149 cm (03/30/21 12:52 AM) (03/30/21 12:51 AM) Weight 69 kg 64 kg (03/30/21 12:52 AM) (03/30/21 12:51 AM) Oxygen Saturation [94-100 %] 99 % (03/30/21 12:51 AM) Pulse Rate [55-90 bpm] 79 bpm (03/30/21 12:51 AM) Body Mass Index [18.5-24.99] 28.83 *H* (03/30/21 12:51 AM) Blood Pressure [90-138/55-84 mm Hg] 98/65 mm Hg (03/30/21 12:51 AM) Respiratory Rate [16-30 br/min] 17 br/min (03/30/21 12:51 AM) Temperature [96.8-100.4 DegF] 97.6 DegF (03/30/21 12:51 AM) Mode of Delivery (Oxygen) Room air (03/30/21 12:51 AM) Blood pressure sites Arm, left (03/30/21 12:51 AM) Temperature Route Oral (03/30/21 12:51 AM) Dry Weight 69 kg (03/30/21 12:52 AM) Weight Obtained Via Patient/family stated (03/30/21 12:51 AM) Social History Social History Type Response Smoking Status Former smoker, quit more [place] n 30 days ago entered on: 10/01/20 Sex
[2022-10-10 10:42] LABS: MANUAL DIFF FLAG NO
[2022-10-10 10:45] LABS: Basophils Percent Auto 0.5 % (0-2); Eosinophils Percent Auto 0.2 % (0-4); Hemoglobin 9.2 g/dl (12.0-16.0); Imm Gran Abs Auto 0.06 X10*3/uL (0.00-0.03); Imm Gran Pct Auto 0.7 % (0.0-0.4); Lymphocytes Percent Auto 23.9 % (20-40); Mean Corpuscular HGB Conc 31.7 g/dl (31.0-35.0); Mean Corpuscular Hemoglobin 30.2 pg (27.0-33.0); Mean Corpuscular Volume 95.1 fL (80.0-98.0); Mean Platelet Volume 8.5 fL (9.4-12.3); Monocytes Absolute Auto 0.6 X10*3/uL (0.1-1.2); Monocytes Percent Auto 7.1 % (2-11); Neutrophils Absolute Auto 5.6 x10*3/uL (2.0-8.3); Neutrophils Percent Auto 67.6 % (45-73); Platelet Count 375 X10*3/uL (160-400); Red Blood Count 3.05 X10*6/uL (4.20-5.50); Red Cell Distribution Width 17.5 % (11.0-16.0); White Blood Count 8.2 X10*3/uL (4.8-10.8)
[2022-10-10] MEDS: Midodrine HCl 5 MG TABLET PO (10:58)
[2022-10-10] MEDS: clonazePAM 1 MG TABLET PO (10:58)
--- NOTE | 2022-10-10 11:02 | PC.NURSE ---
pt is a/o x 4 no sob/vandana noted speaks in full sentences. lugs - cta. heart sounds - irregular. abd soft and non-tender, bs + x 4 quads. buttocks may, cream applied. alix lower ext 2+ pitting edema noted. pt aware of plan of care.
[2022-10-10 11:05] LABS: Anion Gap 15 (12-20); Blood Urea Nitrogen 10 mg/dL (9-16); Calcium 7.9 mg/dL (8.4-10.2); Carbon Dioxide 24 mmol/L (22-29); Chloride 106 mmol/L (96-108); Creatinine Clr Calc Pharmacy 68.8; Estimated Glomerular Filt Rate > 60; Glucose Random 138 mg/dL (60-115); Potassium 2.9 mmol/L (3.3-5.1); Sodium 142 mmol/L (135-145)
[2022-10-10 11:13] LABS: Troponin-I High Sensitivity < 3.5 ng/L (<3.5-17.0)
[2022-10-10 11:20] LABS: Appearance Urine Clear; Color Urine Yellow; Glucose Urine UA Negative (Negative); Leukocyte Esterase Urine Moderate (2+) (Negative); Nitrite Urine Negative (Negative); PH 5.5 (5.0-9.0); UMIC TRIGGER UACC YES; Urine Blood Moderate (2+) (Negative); Urine Ketones Negative (Negative); Urine Protein Negative (Neg-Trace)
[2022-10-10 11:23] LABS: Bacteria Urine None Seen (None Seen); Hyaline Casts Urine 0-2 /LPF (0-2); RBC Urine >20 /HPF (0-2); Squamous Epithelial Cell Urine 0-2 /HPF (0-2); UACC Culture Trigger YES
[2022-10-10] MEDS: Potassium Chloride ER 20 MEQ TAB.ER.PRT 40 MEQ PO (11:42)
[2022-10-10] MEDS: Potassium Chloride/H20 10 MEQ/100 ML PIGGYBACK 100 MEQ IV (11:43)
[2022-10-10] MEDS: Sulfamethox/Trimeth 800/160 TABLET 1 TAB PO (12:25)
--- NOTE | 2022-10-10 15:40 | PC.NURSE ---
this rn attempted to call [facility] [phone] x [phone] without any success. left message on [employer] supervisor's voice mail for return call.
== END 2022-10-10 18:15 | disposition skilled nursing facility (03) ==
PROVIDERS: Nurse Practitioner Family; Emergency Provider Emergency Medicine Emergency Medical Services
DX: N39.0 Urinary tract infection, site not specified (principal); R07.89 Other chest pain; E87.6 Hypokalemia; Z79.899 Other long term (current) drug therapy
CPT/HCPCS: 36415; 71045; 80048; 81001; 84484; 85025; 87086; 93005; 96365; 99284; 99285

== ENCOUNTER 2022-10-18 17:40 | Inpatient (IN) | payer OTHER, SELFPAY ==
[2022-10-18] VITALS (18 sets, daily range): BP systolic 70–99; BP diastolic 33–57; PULSE 75–105; RESP 14–20; TEMP 36.4–36.7; O2SAT 94–99; BMI 32.2
--- NOTE | ~2022-10-18 | CT_ITS ---
EXAMINATION: CT CHEST, ABDOMEN AND PELVIS WITHOUT CONTRAST CLINICAL INFORMATION: Chest pain, sepsis, UTI COMPARISON: Chest radiograph earlier today and CT abdomen pelvis 09/02/2022 TECHNIQUE: Multidetector volumetric imaging was performed from the thoracic inlet through the pubic symphysis without IV contrast. Sagittal and coronal reformatted images were obtained on the technologist's workstation. This CT examination was performed using dose optimization techniques as appropriate, variously including the following: *Automated exposure control *Adjustment of mA and/or kV according to patient size (this includes techniques or standardized protocols for targeted exams where dose is matched to indication/reason for exam; i.e. extremities or head) *Use of iterative reconstruction technique DLP: 574 mGy-cm FINDINGS: CHEST: Lungs and Pleura: There is atelectasis/infiltrate at the left lung base along with a small left pleural effusion. The pleural effusion has a high density behind around it indicating associated pleural thickening and probable chronic nature. There is some minimal fdxa-hv-sjb-like opacities seen in the right lower lobe ([id number]:[id number]). The Right lung is otherwise clear. No right pleural effusion. No worrisome lung masses are seen. Mediastinum: The mediastinum is unremarkable. The central vascular structures are unremarkable. No hilar or mediastinal lymphadenopathy. No pericardial effusion. Chest Wall/Axilla: Unremarkable ABDOMEN/PELVIS: Peritoneal Space: No significant free air or free fluid identified. Liver, Gallbladder, Biliary Tree: The liver is enlarged measuring 18.9 cm in cephalocaudad dimension and demonstrates decreased attenuation consistent with hepatic steatosis. No focal hepatic lesion or biliary ductal dilatation is present. Status post cholecystectomy. Pancreas: Not optimally seen but no pancreatic mass is detected Spleen: Unremarkable Adrenal Glands: Left adrenal gland appears thickened. Sinuses normal. Kidneys and Ureters: Right: There is a 9 x 4 x 4 mm obstructing proximal right ureteral calculus present at measures 562 Hounsfield units and is 9 cm from the posterior axillary line. There is moderate associated hydronephrosis. No renal masses are seen. The ureter distal to the stone is unremarkable. Left: The left kidney and ureter are unremarkable. Bladder: Unremarkable Gastrointestinal Tract: There is been prior gastric surgery. A small hiatal hernia is present. A large stool burden is present throughout the colon similar to the prior exam. Small bowel is unremarkable without evidence of obstruction. The appendix is none identified with certainty but is no evidence of appendicitis. Abdominal Wall: No significant hernia is appreciated. There is mild anasarca. Lymph Nodes: No retroperitoneal lymphadenopathy. Vascular: The noncontrast aorta appears unremarkable.. The IVC appears unremarkable. PELVIC VISCERA: An anteverted uterus is present. An abnormal adnexal mass is not seen. No free intraperitoneal fluid is present OSSEUS STRUCTURES: 3 screws are present in the right hip. An intramedullary tori and screws is present on the left. Mild degenerative changes noted throughout the spine, most marked at L4-L5 where there is a grade 1 anterolisthesis of L4 upon L5. No bony destructive lesions. CT/CT abdomen pelvis wo IV con IMPRESSION: 9 x 4 x 4 mm obstructing proximal right ureteral calculus with hydronephrosis which is almost certainly the source of the patient's urosepsis. Other incidental findings include: 1. Small chronic left pleural effusion with associated pleural thickening and left basilar atelectasis/infiltrate. 2. Minimal eyiz-kd-sly-like opacities in the right lower lobe. 3. Enlarged fatty liver. 4. Status post cholecystectomy and gastric surgery. 5. Large stool burden in the colon. 6. Mild anasarca. Fleischner guidelines were followed. This critical result was discussed with STANLEY Galaviz at 11:20 PM on the day of the and it was ascertained that the content and urgency of the report was understood at the time of direct communication.
--- NOTE | ~2022-10-18 | XR_ITS ---
EXAMINATION: XR CHEST CLINICAL INFORMATION: Central line placement COMPARISON: Chest radiograph 10/18/2022 TECHNIQUE: Frontal view of the chest was obtained. FINDINGS: Right IJ line is present with its tip in the mid SVC. Heart size remains normal. Left basilar atelectasis is again seen. XR/XR chest 1V IMPRESSION: Right IJ line with tip in mid SVC, without complication.
--- NOTE | ~2022-10-18 | FL_ITS ---
EXAMINATION: Intraoperative fluoroscopy CLINICAL INFORMATION: Cystoscopy and ureteroscopy COMPARISON: Intraoperative fluoroscopy October 19, 2022 TECHNIQUE: Intraoperative fluoroscopy was provided for use by Dr. Gomez. A total of 8 images were saved to PACS. A radiologist was not present during imaging. Today's dictation is only for administrative purposes to document intraoperative fluoroscopic usage. TOTAL FLUOROSCOPIC TIME: 23 seconds FL/FL guidance in OR FINDINGS~\^^ Intraoperative fluoroscopy provided for use by Dr. Gomez. Please see operative note for detailed findings.
--- NOTE | ~2022-10-18 | FL_ITS ---
EXAMINATION: Intraoperative fluoroscopy CLINICAL INFORMATION: Cystoscopy COMPARISON: CT abdomen pelvis October 18, 2022 TECHNIQUE: Intraoperative fluoroscopy was provided for use by Dr. Gomez. A total of 3 images were saved to PACS. A radiologist was not present during imaging. Today's dictation is only for administrative purposes to document intraoperative fluoroscopic usage. TOTAL FLUOROSCOPIC TIME: 52 seconds FL/FL guidance in OR FINDINGS~\^^ Intraoperative fluoroscopy provided for use by Dr. Gomez. Please see operative note for detailed findings.
--- NOTE | ~2022-10-18 | XR_ITS ---
EXAMINATION: XR CHEST CLINICAL INFORMATION: Respiratory distress. COMPARISON: Chest CT dated October 23, 2022. Chest x-ray dated October 21, 2022. TECHNIQUE: Portable AP view of the chest was obtained. XR/XR chest 1V FINDINGS/IMPRESSION: The study is significantly limited by portable technique, rotation, low lung volumes, and overlying leads. Findings appear grossly similar compared with chest CT from 4 days prior. Diffuse bilateral interstitial prominence with superimposed bilateral perihilar alveolar infiltrates, bibasilar air bronchograms, and small bibasilar hazy densities suggest pulmonary edema with bilateral effusions; superimposed pneumonia cannot be excluded. The cardiac silhouette is poorly evaluated. There are mild degenerative changes of the spine. The tip of a presumed right internal jugular central venous line projects over the expected location of the superior vena cava. The patient appears to be status post cholecystectomy.
--- NOTE | ~2022-10-18 | US_ITS ---
EXAMINATION: US VENOUS ULTRASOUND WITH DOPPLER LOWER EXTREMITY, BILATERAL CLINICAL INFORMATION: Hypoxia with question of DVT COMPARISON: None TECHNIQUE: Ultrasound of the deep veins is performed from the hip to the calf with compression sonography and color and pulse Doppler assessment. Spectral analysis with color-flow imaging is performed. FINDINGS: RIGHT: There is normal venous compression and respiratory variation and augmented flow. The visualized common femoral vein, superficial femoral vein, profunda femoral vein, popliteal vein, and the trifurcation region shows no evidence of deep venous thrombosis. There is no significant popliteal fossa cyst. Chronic changes in the occipital GSV are noted with calcification. LEFT: There is normal venous compression and respiratory variation and augmented flow. The visualized common femoral vein, superficial femoral vein, profunda femoral vein, popliteal vein, and the trifurcation region shows no evidence of deep venous thrombosis. There is no significant popliteal fossa cyst. Chronic changes in the proximal GSV are noted with calcification. If the patient's symptoms persist, followup ultrasound in 5 days 7 days might be of value to exclude proximal propagation from a non-visualized calf vein. US/US venous duplex LE BI IMPRESSION: No DVT demonstrated in either lower extremity. Chronic changes in the great saphenous veins proximally
--- NOTE | ~2022-10-18 | CT_ITS ---
EXAMINATION: CT ANGIOGRAM OF THE CHEST WITH AND WITHOUT CONTRAST (CT PULMONARY ANGIOGRAM FOR PE) CLINICAL INFORMATION: Reason for Exam hypoxia, tachycardia COMPARISON: Previous chest CT most recent September 2022 TECHNIQUE: Prior to contrast administration, noncontrast localization images were obtained. Subsequently, multidetector volumetric imaging was performed from the thoracic inlet to below the diaphragms following the administration of 65 mL Omnipaque 350 intravenous contrast. No contrast reaction reported Sagittal, coronal, and MIP oblique sagittal reformatted images were obtained on the CT workstation, uploaded to PACS, and reviewed. This CT examination was performed using dose optimization techniques as appropriate, variously including the following: *Automated exposure control *Adjustment of mA and/or kV according to patient size (this includes techniques or standardized protocols for targeted exams where dose is matched to indication/reason for exam; i.e. extremities or head) *Use of iterative reconstruction technique Total exam dose-length product 285 mGy-cm FINDINGS: QUALITY OF STUDY/CONTRAST BOLUS: Satisfactory. PULMONARY ARTERIES: No central or segmental pulmonary emboli. THORACIC AORTA: No aneurysm or dissection. LUNG: There is diffuse bilateral mixed groundglass glass attenuation and increased interstitial markings or crazy paving pattern with some sparing of the right middle and right lower lobes. There is denser atelectasis or consolidation at the lung bases, left greater than right. This does not appear appreciably changed from September 2022 30 exam. PLEURA: Small bilateral pleural effusions. Left pleural effusion appears complex with thickened pleural rind or a split pleural sign suggestive of chronic effusion. There may be a small amount of air in the left pleural space or hydropneumothorax. This appears unchanged from previous exams. MEDIASTINUM: Upper normal-size heart. No pericardial effusion. Small mediastinal lymph nodes. No enlarged lymph nodes. No evidence of septal bowing or right heart strain. Right jugular line with tip projecting over SVC. CHEST WALL/AXILLA: No axillary or internal mammary lymphadenopathy. OSSEOUS STRUCTURES: No acute or suspicious osseous abnormality. UPPER ABDOMEN: Fatty enlarged liver. Partial visualization of right internal ureteral stent. Post surgical changes to the stomach. The gallbladder has been removed. There is reflux of contrast into the hepatic veins to suggest elevated right heart pressures. CT/CT angio chest PE protocol IMPRESSION: No evidence of pulmonary embolism. No appreciable change in pulmonary and pleural findings from 10/22/2022 exam. VTE:
--- NOTE | ~2022-10-18 | CT_ITS ---
EXAMINATION: CT CHEST WITHOUT CONTRAST CLINICAL INFORMATION: Hypoxia COMPARISON: Chest radiograph 10/21/2022, chest CT 10/18/2022 TECHNIQUE: Multidetector volumetric CT imaging of the chest was done. Axial MIP volume rendering provided. Sagittal and coronal reformatted images were obtained. This CT examination was performed using dose optimization techniques as appropriate, variously including the following: *Automated exposure control *Adjustment of mA and/or kV according to patient size (this includes techniques or standardized protocols for targeted exams where dose is matched to indication/reason for exam; i.e. extremities or head) *Use of iterative reconstruction technique DLP: 212 mGy-cm FINDINGS: LUNGS: There is been dramatic worsening of diffuse airspace opacities since the CT scan of 10/18/2022 when the lungs were essentially clear aside from left lower lobe infiltrate. The chest radiograph on 10/21/2022 demonstrated a marked worsening in the appearance on today's study this probably similar to the study from yesterday although exact comparisons between modalities is difficult. There is relative sparing involvement of the right middle lobe and a small portion of the right lower lobe. MEDIASTINUM: Small mediastinal lymph nodes are present, probably reactive. Heart size normal. CORONARY ARTERY CALCIFICATION: None visualized on this study. PLEURA: Small bilateral pleural effusions are present. The high density rind previously described on the left remains present. No pneumothorax. AXILLA: No lymphadenopathy. UPPER ABDOMEN: Splenic granulomas are seen. The proximal portion of a double-J ureteral stent is present in the right kidney. OSSEOUS STRUCTURES: Mild degenerative changes in the spine. CT/CT chest wo IV con IMPRESSION: 1. Dramatic worsening of diffuse airspace opacities since 10/18/2022, but probably stable since yesterday. 2. Small bilateral pleural effusions. 3. Other incidental findings as described above. Fleischner guidelines were followed.
--- NOTE | ~2022-10-18 | US_ITS ---
EXAMINATION: US ABDOMEN COMPLETE CLINICAL INFORMATION: Hyperbilirubinemia. COMPARISON: CT scan of the abdomen and pelvis dated 09/28/2022. TECHNIQUE: Real-time imaging of the abdominal viscera. FINDINGS: PANCREAS: Visualized portions unremarkable. ABDOMINAL AORTA: Visualized portions unremarkable. INFERIOR VENA CAVA: Visualized portions unremarkable. LIVER: Diffuse increased echotexture without focal abnormality. GALLBLADDER: Status post cholecystectomy. COMMON BILE DUCT: Measures up to 1.0 cm without intraluminal abnormality. RIGHT KIDNEY: 11.0 cm. No nephrolithiasis or hydronephrosis. LEFT KIDNEY: 9.1 cm. No hydronephrosis or nephrolithiasis. Some limitation secondary to overlying bowel gas shadowing. SPLEEN: 9.1 cm. Unremarkable. FREE FLUID: None. US/US abdomen complete IMPRESSION: 1. Hepatic steatosis. 2. Interval resolution of previously seen right hydronephrosis. No significant right renal abnormality.
--- NOTE | ~2022-10-18 | XR_ITS ---
EXAMINATION: XR CHEST CLINICAL INFORMATION: Hypoxia COMPARISON: 10/19/2022 TECHNIQUE: Frontal view of the chest was obtained. FINDINGS: Right IJ central line tip lies in the region of the distal SVC. Lung volumes are symmetric. There are moderately extensive heterogeneous bilateral airspace opacities, significantly worsened compared to prior. No evidence of pneumothorax. Trace pleural effusions cannot be excluded. Cardiac size appears grossly within normal limits though is suboptimally assessed due to patient rotation. No acute osseous findings are seen. XR/XR chest 1V IMPRESSION: Moderately extensive heterogeneous bilateral airspace opacities, significantly worsened from 10/19/2022 and which may represent edema.
--- NOTE | ~2022-10-18 | US_ITS ---
EXAMINATION: US CHEST CLINICAL INFORMATION: Respiratory failure. Evaluate for pleural effusion. COMPARISON: Chest radiograph same date TECHNIQUE: Real-time sonographic evaluation of the right and left pleural space. FINDINGS: Small bilateral pleural effusions are noted. The left effusion may be slightly complex. US/US chest IMPRESSION: Small effusions.
--- NOTE | ~2022-10-18 | CT_ITS ---
EXAMINATION: CT CHEST, ABDOMEN AND PELVIS WITHOUT CONTRAST CLINICAL INFORMATION: Chest pain, sepsis, UTI COMPARISON: Chest radiograph earlier today and CT abdomen pelvis 09/02/2022 TECHNIQUE: Multidetector volumetric imaging was performed from the thoracic inlet through the pubic symphysis without IV contrast. Sagittal and coronal reformatted images were obtained on the technologist's workstation. This CT examination was performed using dose optimization techniques as appropriate, variously including the following: *Automated exposure control *Adjustment of mA and/or kV according to patient size (this includes techniques or standardized protocols for targeted exams where dose is matched to indication/reason for exam; i.e. extremities or head) *Use of iterative reconstruction technique DLP: 574 mGy-cm FINDINGS: CHEST: Lungs and Pleura: There is atelectasis/infiltrate at the left lung base along with a small left pleural effusion. The pleural effusion has a high density behind around it indicating associated pleural thickening and probable chronic nature. There is some minimal bkcn-di-wtr-like opacities seen in the right lower lobe (6:[id number]). The Right lung is otherwise clear. No right pleural effusion. No worrisome lung masses are seen. Mediastinum: The mediastinum is unremarkable. The central vascular structures are unremarkable. No hilar or mediastinal lymphadenopathy. No pericardial effusion. Chest Wall/Axilla: Unremarkable ABDOMEN/PELVIS: Peritoneal Space: No significant free air or free fluid identified. Liver, Gallbladder, Biliary Tree: The liver is enlarged measuring 18.9 cm in cephalocaudad dimension and demonstrates decreased attenuation consistent with hepatic steatosis. No focal hepatic lesion or biliary ductal dilatation is present. Status post cholecystectomy. Pancreas: Not optimally seen but no pancreatic mass is detected Spleen: Unremarkable Adrenal Glands: Left adrenal gland appears thickened. Sinuses normal. Kidneys and Ureters: Right: There is a 9 x 4 x 4 mm obstructing proximal right ureteral calculus present at measures 562 Hounsfield units and is 9 cm from the posterior axillary line. There is moderate associated hydronephrosis. No renal masses are seen. The ureter distal to the stone is unremarkable. Left: The left kidney and ureter are unremarkable. Bladder: Unremarkable Gastrointestinal Tract: There is been prior gastric surgery. A small hiatal hernia is present. A large stool burden is present throughout the colon similar to the prior exam. Small bowel is unremarkable without evidence of obstruction. The appendix is none identified with certainty but is no evidence of appendicitis. Abdominal Wall: No significant hernia is appreciated. There is mild anasarca. Lymph Nodes: No retroperitoneal lymphadenopathy. Vascular: The noncontrast aorta appears unremarkable.. The IVC appears unremarkable. PELVIC VISCERA: An anteverted uterus is present. An abnormal adnexal mass is not seen. No free intraperitoneal fluid is present OSSEUS STRUCTURES: 3 screws are present in the right hip. An intramedullary tori and screws is present on the left. Mild degenerative changes noted throughout the spine, most marked at L4-L5 where there is a grade 1 anterolisthesis of L4 upon L5. No bony destructive lesions. CT/CT chest wo IV con IMPRESSION: 9 x 4 x 4 mm obstructing proximal right ureteral calculus with hydronephrosis which is almost certainly the source of the patient's urosepsis. Other incidental findings include: 1. Small chronic left pleural effusion with associated pleural thickening and left basilar atelectasis/infiltrate. 2. Minimal isjf-kf-mcb-like opacities in the right lower lobe. 3. Enlarged fatty liver. 4. Status post cholecystectomy and gastric surgery. 5. Large stool burden in the colon. 6. Mild anasarca. Fleischner guidelines were followed. This critical result was discussed with STANLEY Galaviz at 11:20 PM on the day of the and it was ascertained that the content and urgency of the report was understood at the time of direct communication.
--- NOTE | ~2022-10-18 | XR_ITS ---
EXAMINATION: XR CHEST CLINICAL INFORMATION: Shortness of breath COMPARISON: Previous chest x-ray most recent 10/27/2022 TECHNIQUE: 2 views of the chest were obtained. FINDINGS: The cardiac silhouette is slightly enlarged but stable. Hilar and mediastinal contours are unremarkable. There is diffuse airspace disease. This does not appear appreciably changed. There may be a small loculated left pleural effusion. There is no right pleural effusion. There is no pneumothorax. No acute bone abnormality. XR/XR chest 2V IMPRESSION: Diffuse bilateral multilobar airspace disease not appreciably changed.
--- NOTE | ~2022-10-18 | XR_ITS ---
EXAMINATION: XR CHEST CLINICAL INFORMATION: Hypotension COMPARISON: 10/10/2022 TECHNIQUE: Frontal view of the chest was obtained. FINDINGS: The heart and pulmonary vessels are unremarkable. Left lower lobe atelectasis/scarring is again seen. No consolidations, effusions or lung masses. Degenerative changes are present in the spine. XR/XR chest 1V IMPRESSION: No acute intrathoracic disease.
--- NOTE | 2022-10-18 18:01 | ED_ITS ---
HPI - General Adult General Chief complaint: General Medical Stated complaint: low bp Time Seen by Provider: 10/18/22 17:56 Source: patient and EMS Mode of arrival: EMS Limitations: no limitations History of Present Illness HPI narrative: 51-year-old female presents via EMS from a [facility] facility for hypot ension and weakness. She was treated on the for urinary tract infection, and is at a [facility] facility for a fractured she states that she is chronically hypotensive, takes midodrine on a daily basis, however she does not feel herself. She states to be cold, has chest pain, and is easily fatigued. Onset (ago): day(s) Radiation: non-radiation Severity: moderate Severity scale (1-10): 7 Quality: aching Pain Consistency: constant Relieving factors: none Exacerbating factors: movement Associated symptoms: chest pain, fever/chills, malaise, shortness of breath and weakness Treatments prior to arrival: none Related Data Previous Rx's Medication Instructions Recorded sulfamethoxazole 800 1 tab PO BID 7 days #14 tabs 10/10/22 mg-trimethoprim 160 mg tablet Allergies Allergy/AdvReac Type Severity Reaction Status Date / Time cephalexin Allergy Swelling Verified 02/07/21 18:19 ciprofloxacin [From Cipro] Allergy Swelling Verified 02/07/21 18:19 duloxetine [From Cymbalta] Allergy Swelling Verified 02/07/21 18:19 Penicillins Allergy Swelling Verified 02/07/21 18:19 Review of Systems Review of Systems: Constitutional: No Fever, positive Chills ENT/Mouth: No Ear Pain, No Hoarseness, No sore throat Eyes: No Eye Pain, No Swelling, No Redness, No Foreign Body Cardiovascular: Positive Chest Pain, positive SOB Respiratory: No Cough, No Dyspnea Gastrointestinal: Positive Nausea, No Vomiting, No Diarrhea, No abdominal Pain Genitourinary: No Dysuria, positive Hematuria Musculoskeletal: No joint pain, No Myalgias, No Joint Swelling Skin: No Skin lacerations, No rash Neuro: Positive Weakness, No Numbness, No Paresthesias, No Loss of Consciousness, positive Dizziness, No Headache Psych: No Anxiety/Panic, No Depression Heme/Lymph: no easy bruising, no Lymphadenopathy Endocrine: No Polyuria, No Polydipsia Yes all other systems are reviewed and are negative [facility] Past Medical History Attestation statement: The following information was validated with the patient. Source: old records reviewed Medical History Afib Anxiety Arthritis Asthma Bipolar 1 disorder Bronchitis Complications of gastric bypass surgery Hypokalemia Hypotension Migraines PTSD (post-traumatic stress disorder) Surgical History H/O: History of cholecystectomy Social History Social History Alcohol intake: never Advance Directives: No Advance Directives Information Provided: No Patient : No Physical Exam ED Vital Signs: Vital Signs - 24 hr 10/18/22 17:55 10/18/22 19:44 10/18/22 20:00 Temperature 97.8 F 97.8 F Pulse Rate 79 75 83 Respiratory Rate 18 15 15 Blood Pressure 70/33 L 80/43 L 83/52 L Pulse Oximetry 96 97 98 Oxygen Delivery Method Room Air Room Air Room Air 10/18/22 20:46 10/18/22 20:57 10/18/22 21:00 Temperature 98.1 F 98.1 F Pulse Rate 78 83 90 Respiratory Rate 14 16 18 Blood Pressure 75/41 L 77/42 L 77/42 L Pulse Oximetry 94 Oxygen Delivery Method Room Air 10/18/22 21:14 10/18/22 21:28 10/18/22 22:00 Temperature 97.7 F 98.0 F Pulse Rate 88 105 H 93 Respiratory Rate 19 19 20 Blood Pressure 82/56 L 99/54 L 87/42 L Pulse Oximetry 98 98 Oxygen Delivery Method Room Air Room Air 10/18/22 21:15 10/18/22 20:35 10/18/22 23:00 Temperature 97.9 F 97.6 F Pulse Rate 92 92 90 Respiratory Rate 16 19 15 Blood Pressure 80/44 L 80/44 L 80/44 L Pulse Oximetry 95 Oxygen Delivery Method Room Air 10/18/22 23:05 10/18/22 23:16 10/18/22 23:22 Temperature Pulse Rate 88 85 Respiratory Rate 19 Blood Pressure 76/43 L 72/39 L 80/45 L Pulse Oximetry 97 Oxygen Delivery Method 10/18/22 23:31 Temperature Pulse Rate 91 Respiratory Rate 15 Blood Pressure 91/54 L Pulse Oximetry 99 Oxygen Delivery Method Room Air BMI result Body Mass Index 32.2 Appearance: Alert. Oriented X3. Moderate distress. Pale. Eyes: Pupils equal, round and reactive to light. EOMI. Sclera nonicteric. ENT: Pharynx normal. Dry mucous membranes. Neck: Normal inspection. Neck supple. CVS: Normal heart rate and rhythm. Pulses normal. Chest wall tenderness to palpation. Respiratory: No respiratory distress. Breath sounds normal. Abdomen: Soft and nontender. Skin: Skin warm and dry. Normal skin color. Normal skin turgor. Extremities: No lower extremity edema. Gait not assessed for safety. Moves all extremities against resistance. Neuro: No motor deficit. No sensory deficit. Cranial nerves 2-12 intact. Course Course Course Narrative: 51-year-old female presents via EMS from a [facility] for hypotension, fatigue, weakness,. She is treated at the [facility] for a right femoral neck fracture, admitted on 10/02/2022. She was evaluated at this facility on 10/10/2022 with a urinary tract infection and given Bactrim, during that visit she was noted to have hypokalemia as well as a UTI. Patient states that she did complete the antibiotics, does report that she did not urinate for at least 6 hours today. While patient is alert oriented x4, she is a poor historian. Patient is prescribed midodrine 3 times a day, for chronic hypotension. She stated that her blood pressure was 60/30 at the [facility] facility. She does receive pain medications oxycodone, but has not taken that in several days. She does have a prescription for Klonopin, which she has not taken since the . Will order labs, lactic, cultures, and COVID testing. 18:58 H&H 06/12 and lactic 3.7. Ordered 2 packed units, type and screen, patient has received 1 L of saline for fluid resuscitation. Occult stool pending. 20:19 Urinalysis positive for leukocyte esterase. Patient is septic at this time. Occult stool is positive. 23:00 patient continues to be hypotensive after 2 units of blood, 2 L of normal saline, and 5 mg of midodrine. Order for Levophed at this time. Discussion with Radiology, patient does have an obstructing stone and is most likely uroseptic. 23:[address] Dean, patient will be accepted to the ICU for sepsis, urinary tract infection, hypotension, anemia with positive occult stool. 00:15 central line placed by Dr. Leslie. Will keep patient NPO, Dr. Gomez updated on uroseptic with obstructing stone. Plan is for 08:00 OR. Consultations Consultation #1: Jermaine Time: 23:18 Medications Administered Generic Name Dose Route Start Last Admin Trade Name Freq PRN Reason Stop Dose Admin Norepinephrine Bitartrate 8 mg in 250 mls @ 0 mls/hr 10/18/22 23:15 10/18/22 23:31 Levophed IVCONT 0.09 mcg/kg/min .Q0M RUPAL 8.42 mls/hr Titration Protocol Per Protocol Discontinued Medications Generic Name Dose Route Start Last Admin Trade Name Freq PRN Reason Stop Dose Admin Sodium Chloride 1,000 mls @ 999 mls/hr 10/18/22 18:15 10/18/22 19:44 Ns IVCONT 10/18/22 19:15 Infused .Q1H1M RUPAL Infusion Sodium Chloride 1,000 mls @ 999 mls/hr 10/18/22 20:30 10/18/22 21:52 Ns IVCONT 10/18/22 21:30 Infused .Q1H1M RUPAL Infusion Vancomycin HCl 1,250 mg/ 250 mls @ 166.667 mls/hr 10/18/22 20:22 10/18/22 22:34 Sodium Chloride IV 10/18/22 21:51 Infused ONCE ONE Infusion Levofloxacin 750 mg 10/18/22 20:22 10/18/22 20:38 Levofloxacin 750 Mg Tablet PO 10/18/22 20:23 750 mg ONCE ONE Administration Midodrine 5 mg 10/18/22 18:03 10/18/22 19:04 Midodrine Hcl 5 Mg Tablet PO 10/18/22 18:04 5 mg ONCE ONE Administration Procedures Central Line Placement Right IJ: Time Out Performed: Yes Patient Placed on Monitor/Pulse Ox: Yes Prep: mask, gown and gloves Central Line Prep: Chlorhexidine scrub Local Anesthetic: lidocaine 1% Amount of anesthesia used (mL): 5 Ultrasound Used for Placement: Yes Central Line Lumen Inserted: triple Post Procedure: sutured in place, good blood return, all ports aspirated, flushed, capped and sterile dressing applied Post Procedure X-Ray: tip of catheter in good position Patient Tolerated Procedure: well and no complications Complications: none Medical Decision Making Medical Records Medical records reviewed: Yes I reviewed the patient's medical records. Lab Data Lab results reviewed: Yes I reviewed the patient's lab results. Result diagrams: 10/18/22 18:31 10/18/22 19:37 Labs: Lab Results 10/18/22 10/18/22 10/18/22 Range/Units 18:31 18:31 18:31 WBC 26.8 H (4.8-10.8) X10*3/uL RBC 2.24 L D (4.20-5.50) X10*6/uL Hgb 7.0 L* D (12.0-16.0) g/dl Hct 21.0 L* D (37.0-47.0) % MCV 93.8 (80.0-98.0) fL MCH 31.3 (27.0-33.0) pg MCHC 33.3 (31.0-35.0) g/dl RDW 20.3 H (11.0-16.0) % Plt Count 175 D (160-400) X10*3/uL MPV 10.5 (9.4-12.3) fL Immature Gran % (Auto) Cancelled Neut % (Auto) Cancelled Lymph % (Auto) Cancelled [place] % (Auto) Cancelled Eos % (Auto) Cancelled Baso % (Auto) Cancelled Lymph # (Auto) Cancelled [place] # (Auto) Cancelled Eos # (Auto) Cancelled Baso # (Auto) Cancelled Abs Immat Gran (auto) Cancelled Absolute Neuts (auto) Cancelled Absolute Nucleated RBC 0.020 H (0.0-0.012) X10*3/uL Nucleated RBC % (auto) 0.1 (0.0-0.2) /100WBC Neutrophils % (Manual) 80 H (45-73) % Band Neutrophils % 6 H (3-5) % Lymphocytes % (Manual) 9 L (20-40) % Monocytes % (Manual) 4 (2-11) % Metamyelocytes % 1 % Abs Neuts (Manual) 23.0 H (2.0-8.3) X10*3/uL Lymphocytes # (Manual) 2.4 (1.2-4.9) X10*3/uL Monocytes # (Manual) 1.1 (0.1-1.2) X10*3/uL Metamyelocytes # 0.3 X10*3/uL Smudge Cells PRESENT Toxic Granulation PRESENT Toxic Vacuolation PRESENT Dohle Bodies PRESENT Platelet Estimate SLIGHTLY DECREASED (NORMAL) Plt Morphology Comment NORMAL RBC Morphology NOTED Polychromasia 1+ (0-2) /OIF Hypochromasia 1+ (5-14) /OIF Microcytosis 1+ (5-14) /OIF Macrocytosis 1+ (5-14) /OIF [place] Cells 3+ (>5) /OIF Schistocytes 2+ (3-5) /OIF Sodium (135-145) mmol/L Potassium (3.3-5.1) mmol/L Chloride (96-108) mmol/L Carbon Dioxide (22-29) mmol/L Anion Gap (12-20) BUN (9-16) mg/dL Creatinine (0.5-1.4) mg/dL Estim Creat Clear Calc Estimated GFR Random Glucose (60-115) mg/dL Lactic Acid 3.7 H* (0.5-2.0) mmol/L Lactic Acid F/U @ 2Hr (0.5-2.0) mmol/L Calcium (8.4-10.2) mg/dL Magnesium (1.6-2.6) mg/dL Total Bilirubin (0.0-1.0) mg/dL Direct Bilirubin (0.0-0.5) mg/dL AST (5-31) U/L ALT (0-31) U/L Alkaline Phosphatase (39-117) U/L Troponin I High Sens < 3.5 (<3.5-17.0) ng/L Total Protein (6.5-8.0) g/dL Albumin (3.5-5.0) g/dL Lipase (8-78) U/L Urine Color Urine Appearance Urine pH (5.0-9.0) Ur Specific [place] (1.005-1.025) Urine Protein (Neg-Trace) mg/dL Urine Glucose (UA) (Negative) mg/dL Urine Ketones (Negative) mg/dL Urine Blood (Negative) Urine Nitrite (Negative) Ur Leukocyte Esterase (Negative) Urine RBC (0-2) /HPF Urine WBC (0-5) /HPF Ur Squamous Epith Cells (0-2) /HPF Urine Bacteria (None Seen) Hyaline Casts (0-2) /LPF Stool Occult Blood (NEGATIVE) Urine Opiates Screen (Not Detect) Urine Fentanyl Screen (Not Detect) Ur Barbiturates Screen (Not Detect) Ur Phencyclidine Scrn (Not Detect) Ur Amphetamines Screen (Not Detect) U Benzodiazepines Scrn (Not Detect) Urine Cocaine Screen (Not Detect) U Marijuana (THC) Screen (Not Detect) Influenza Type A (PCR) (Negative) Influenza Type B (PCR) (Negative) RSV RNA Qual (PCR) (Negative) SARS-CoV-2 RNA (RT-PCR) (Negative) Blood Type Antibody Screen Crossmatch 10/18/22 10/18/22 10/18/22 Range/Units 18:31 18:56 18:56 WBC (4.8-10.8) X10*3/uL RBC (4.20-5.50) X10*6/uL Hgb (12.0-16.0) g/dl Hct (37.0-47.0) % MCV (80.0-98.0) fL MCH (27.0-33.0) pg MCHC (31.0-35.0) g/dl RDW (11.0-16.0) % Plt Count (160-400) X10*3/uL MPV (9.4-12.3) fL Immature Gran % (Auto) Neut % (Auto) Lymph % (Auto) [place] % (Auto) Eos % (Auto) Baso % (Auto) Lymph # (Auto) [place] # (Auto) Eos # (Auto) Baso # (Auto) Abs Immat Gran (auto) Absolute Neuts (auto) Absolute Nucleated RBC (0.0-0.012) X10*3/uL Nucleated RBC % (auto) (0.0-0.2) /100WBC Neutrophils % (Manual) (45-73) % Band Neutrophils % (3-5) % Lymphocytes % (Manual) (20-40) % Monocytes % (Manual) (2-11) % Metamyelocytes % % Abs Neuts (Manual) (2.0-8.3) X10*3/uL Lymphocytes # (Manual) (1.2-4.9) X10*3/uL Monocytes # (Manual) (0.1-1.2) X10*3/uL Metamyelocytes # X10*3/uL Smudge Cells Toxic Granulation Toxic Vacuolation Dohle Bodies Platelet Estimate (NORMAL) Plt Morphology Comment RBC Morphology Polychromasia /OIF Hypochromasia /OIF Microcytosis /OIF Macrocytosis /OIF [place] Cells /OIF Schistocytes /OIF Sodium (135-145) mmol/L Potassium (3.3-5.1) mmol/L Chloride (96-108) mmol/L Carbon Dioxide (22-29) mmol/L Anion Gap (12-20) BUN (9-16) mg/dL Creatinine (0.5-1.4) mg/dL Estim Creat Clear Calc Estimated GFR Random Glucose (60-115) mg/dL Lactic Acid (0.5-2.0) mmol/L Lactic Acid F/U @ 2Hr (0.5-2.0) mmol/L Calcium (8.4-10.2) mg/dL Magnesium (1.6-2.6) mg/dL Total Bilirubin (0.0-1.0) mg/dL Direct Bilirubin (0.0-0.5) mg/dL AST (5-31) U/L ALT (0-31) U/L Alkaline Phosphatase (39-117) U/L Troponin I High Sens (<3.5-17.0) ng/L Total Protein (6.5-8.0) g/dL Albumin (3.5-5.0) g/dL Lipase (8-78) U/L Urine Color Dark Yellow Urine Appearance Cloudy Urine pH 5.5 (5.0-9.0) Ur Specific [place] 1.015 (1.005-1.025) Urine Protein Negative (Neg-Trace) mg/dL Urine Glucose (UA) Negative (Negative) mg/dL Urine Ketones Negative (Negative) mg/dL Urine Blood Moderate (2+) H (Negative) Urine Nitrite Negative (Negative) Ur Leukocyte Esterase Large (3+) H (Negative) Urine RBC 6-10 H (0-2) /HPF Urine WBC 21-50 H (0-5) /HPF Ur Squamous Epith Cells 11-20 (0-2) /HPF Urine Bacteria 4+ (None Seen) Hyaline Casts 0-2 (0-2) /LPF Stool Occult Blood (NEGATIVE) Urine Opiates Screen Not Detected (Not Detect) Urine Fentanyl Screen Not Detected (Not Detect) Ur Barbiturates Screen Not Detected (Not Detect) Ur Phencyclidine Scrn Not Detected (Not Detect) Ur Amphetamines Screen Not Detected (Not Detect) U Benzodiazepines Scrn Not Detected (Not Detect) Urine Cocaine Screen Not Detected (Not Detect) U Marijuana (THC) Screen Not Detected (Not Detect) Influenza Type A (PCR) NEGATIVE (Negative) Influenza Type B (PCR) NEGATIVE (Negative) RSV RNA Qual (PCR) NEGATIVE (Negative) SARS-CoV-2 RNA (RT-PCR) NEGATIVE (Negative) Blood Type Antibody Screen Crossmatch 10/18/22 10/18/22 10/18/22 Range/Units 19:37 19:37 20:51 WBC (4.8-10.8) X10*3/uL RBC (4.20-5.50) X10*6/uL Hgb (12.0-16.0) g/dl Hct (37.0-47.0) % MCV (80.0-98.0) fL MCH (27.0-33.0) pg MCHC (31.0-35.0) g/dl RDW (11.0-16.0) % Plt Count (160-400) X10*3/uL MPV (9.4-12.3) fL Immature Gran % (Auto) Neut % (Auto) Lymph % (Auto) [place] % (Auto) Eos % (Auto) Baso % (Auto) Lymph # (Auto) [place] # (Auto) Eos # (Auto) Baso # (Auto) Abs Immat Gran (auto) Absolute Neuts (auto) Absolute Nucleated RBC (0.0-0.012) X10*3/uL Nucleated RBC % (auto) (0.0-0.2) /100WBC Neutrophils % (Manual) (45-73) % Band Neutrophils % (3-5) % Lymphocytes % (Manual) (20-40) % Monocytes % (Manual) (2-11) % Metamyelocytes % % Abs Neuts (Manual) (2.0-8.3) X10*3/uL Lymphocytes # (Manual) (1.2-4.9) X10*3/uL Monocytes # (Manual) (0.1-1.2) X10*3/uL Metamyelocytes # X10*3/uL Smudge Cells Toxic Granulation Toxic Vacuolation Dohle Bodies Platelet Estimate (NORMAL) Plt Morphology Comment RBC Morphology Polychromasia /OIF Hypochromasia /OIF Microcytosis /OIF Macrocytosis /OIF [place] Cells /OIF Schistocytes /OIF Sodium 127 L (135-145) mmol/L Potassium 3.2 L (3.3-5.1) mmol/L Chloride 103 (96-108) mmol/L Carbon Dioxide 14 L (22-29) mmol/L Anion Gap 13 (12-20) BUN 41 H (9-16) mg/dL Creatinine 1.69 H (0.5-1.4) mg/dL Estim Creat Clear Calc 19.9 Estimated GFR 32 Random Glucose 84 (60-115) mg/dL Lactic Acid (0.5-2.0) mmol/L Lactic Acid F/U @ 2Hr 3.0 H* (0.5-2.0) mmol/L Calcium 7.2 L D (8.4-10.2) mg/dL Magnesium 1.7 (1.6-2.6) mg/dL Total Bilirubin 2.4 H (0.0-1.0) mg/dL Direct Bilirubin 1.7 H (0.0-0.5) mg/dL AST 59 H (5-31) U/L ALT 139 H (0-31) U/L Alkaline Phosphatase 208 H (39-117) U/L Troponin I High Sens (<3.5-17.0) ng/L Total Protein 3.5 L (6.5-8.0) g/dL Albumin 1.7 L (3.5-5.0) g/dL Lipase 5 L (8-78) U/L Urine Color Urine Appearance Urine pH (5.0-9.0) Ur Specific [place] (1.005-1.025) Urine Protein (Neg-Trace) mg/dL Urine Glucose (UA) (Negative) mg/dL Urine Ketones (Negative) mg/dL Urine Blood (Negative) Urine Nitrite (Negative) Ur Leukocyte Esterase (Negative) Urine RBC (0-2) /HPF Urine WBC (0-5) /HPF Ur Squamous Epith Cells (0-2) /HPF Urine Bacteria (None Seen) Hyaline Casts (0-2) /LPF Stool Occult Blood (NEGATIVE) Urine Opiates Screen (Not Detect) Urine Fentanyl Screen (Not Detect) Ur Barbiturates Screen (Not Detect) Ur Phencyclidine Scrn (Not Detect) Ur Amphetamines Screen (Not Detect) U Benzodiazepines Scrn (Not Detect) Urine Cocaine Screen (Not Detect) U Marijuana (THC) Screen (Not Detect) Influenza Type A (PCR) (Negative) Influenza Type B (PCR) (Negative) RSV RNA Qual (PCR) (Negative) SARS-CoV-2 RNA (RT-PCR) (Negative) Blood Type O Positive Antibody Screen NEGATIVE Crossmatch See Detail 10/18/22 Range/Units 21:35 WBC (4.8-10.8) X10*3/uL RBC (4.20-5.50) X10*6/uL Hgb (12.0-16.0) g/dl Hct (37.0-47.0) % MCV (80.0-98.0) fL MCH (27.0-33.0) pg MCHC (31.0-35.0) g/dl RDW (11.0-16.0) % Plt Count (160-400) X10*3/uL MPV (9.4-12.3) fL Immature Gran % (Auto) Neut % (Auto) Lymph % (Auto) [place] % (Auto) Eos % (Auto) Baso % (Auto) Lymph # (Auto) [place] # (Auto) Eos # (Auto) Baso # (Auto) Abs Immat Gran (auto) Absolute Neuts (auto) Absolute Nucleated RBC (0.0-0.012) X10*3/uL Nucleated RBC % (auto) (0.0-0.2) /100WBC Neutrophils % (Manual) (45-73) % Band Neutrophils % (3-5) % Lymphocytes % (Manual) (20-40) % Monocytes % (Manual) (2-11) % Metamyelocytes % % Abs Neuts (Manual) (2.0-8.3) X10*3/uL Lymphocytes # (Manual) (1.2-4.9) X10*3/uL Monocytes # (Manual) (0.1-1.2) X10*3/uL Metamyelocytes # X10*3/uL [place] Cells Toxic Granulation Toxic Vacuolation Dohle Bodies Platelet Estimate (NORMAL) Plt Morphology Comment RBC Morphology Polychromasia /OIF Hypochromasia /OIF Microcytosis /OIF Macrocytosis /OIF [place] Cells /OIF Schistocytes /OIF Sodium (135-145) mmol/L Potassium (3.3-5.1) mmol/L Chloride (96-108) mmol/L Carbon Dioxide (22-29) mmol/L Anion Gap (12-20) BUN (9-16) mg/dL Creatinine (0.5-1.4) mg/dL Estim Creat Clear Calc Estimated GFR Random Glucose (60-115) mg/dL Lactic Acid (0.5-2.0) mmol/L Lactic Acid F/U @ 2Hr (0.5-2.0) mmol/L Calcium (8.4-10.2) mg/dL Magnesium (1.6-2.6) mg/dL Total Bilirubin (0.0-1.0) mg/dL Direct Bilirubin (0.0-0.5) mg/dL AST (5-31) U/L ALT (0-31) U/L Alkaline Phosphatase (39-117) U/L Troponin I High Sens (<3.5-17.0) ng/L Total Protein (6.5-8.0) g/dL Albumin (3.5-5.0) g/dL Lipase (8-78) U/L Urine Color Urine Appearance Urine pH (5.0-9.0) Ur Specific [place] (1.005-1.025) Urine Protein (Neg-Trace) mg/dL Urine Glucose (UA) (Negative) mg/dL Urine Ketones (Negative) mg/dL Urine Blood (Negative) Urine Nitrite (Negative) Ur Leukocyte Esterase (Negative) Urine RBC (0-2) /HPF Urine WBC (0-5) /HPF Ur Squamous Epith Cells (0-2) /HPF Urine Bacteria (None Seen) Hyaline Casts (0-2) /LPF Stool Occult Blood POSITIVE (NEGATIVE) Urine Opiates Screen (Not Detect) Urine Fentanyl Screen (Not Detect) Ur Barbiturates Screen (Not Detect) Ur Phencyclidine Scrn (Not Detect) Ur Amphetamines Screen (Not Detect) U Benzodiazepines Scrn (Not Detect) Urine Cocaine Screen (Not Detect) U Marijuana (THC) Screen (Not Detect) Influenza Type A (PCR) (Negative) Influenza Type B (PCR) (Negative) RSV RNA Qual (PCR) (Negative) SARS-CoV-2 RNA (RT-PCR) (Negative) Blood Type Antibody Screen Crossmatch Imaging Data CT chest abdomen pelvis: Attestation: I personally reviewed and interpreted this imaging study as follows: Radiologist's impression: FINDINGS: CHEST: Lungs and Pleura: There is atelectasis/infiltrate at the left lung base along with a small left pleural effusion. The pleural effusion has a high density behind around it indicating associated pleural thickening and probable chronic nature. There is some minimal [id number]-like opacities seen in the right lower lobe (6:226-253). The Right lung is otherwise clear. No right pleural effusion. No worrisome lung masses are seen. Mediastinum: The mediastinum is unremarkable. The central vascular structures are unremarkable. No hilar or mediastinal lymphadenopathy. No pericardial effusion. Chest Wall/Axilla: Unremarkable ABDOMEN/PELVIS: Peritoneal Space: No significant free air or free fluid identified. Liver, Gallbladder, Biliary Tree: The liver is enlarged measuring 18.9 cm in cephalocaudad dimension and demonstrates decreased attenuation consistent with hepatic steatosis. ? No focal hepatic lesion or biliary ductal dilatation is present. Status post cholecystectomy. Pancreas: Not optimally seen but no pancreatic mass is detected Spleen: Unremarkable Adrenal Glands: Left adrenal gland appears thickened. Sinuses normal. Kidneys and Ureters: Right: There is a 9 x 4 x 4 mm obstructing proximal right ureteral calculus present at measures? 562 Hounsfield units and is 9 cm from the posterior axillary line. There is moderate associated hydronephrosis. No renal masses are seen. The ureter distal to the stone is unremarkable. Left: The left kidney and ureter are unremarkable. Bladder: Unremarkable Gastrointestinal Tract: There is been prior gastric surgery. A small hiatal hernia is present. A large stool burden is present throughout the colon similar to the prior exam. Small bowel is unremarkable without evidence of obstruction. The appendix is none identified with certainty but is no evidence of appendicitis. Abdominal Wall: No significant hernia is appreciated. There is mild anasarca. Lymph Nodes: No retroperitoneal lymphadenopathy. Vascular: The noncontrast aorta appears unremarkable.. The IVC appears unremarkable. PELVIC VISCERA: An anteverted uterus is present. An abnormal adnexal mass is not seen. No free intraperitoneal fluid is present OSSEUS STRUCTURES: 3 screws are present in the right hip. An intramedullary tori and screws is present on the left. Mild degenerative changes noted throughout the spine, most marked at L4-L5 where there is a grade 1 anterolisthesis of L4 upon L5. No bony destructive lesions. CT/CT abdomen pelvis wo IV con IMPRESSION: ? 9 x 4 x 4 mm obstructing proximal right ureteral calculus with hydronephrosis which is almost certainly the source of the patient's urosepsis. Other incidental findings include: ? 1.? Small chronic left pleural effusion with associated pleural thickening and left basilar atelectasis/infiltrate. 2.? Minimal eiyj-jg-prw-like opacities in the right lower lobe. 3.? Enlarged fatty liver. 4.? Status post cholecystectomy and gastric surgery. 5.? Large stool burden in the colon. 6.? Mild anasarca. ? Fleischner guidelines were followed. ? This critical result was discussed with STANLEY Galaviz at 11:20 PM on the day of the and it was ascertained that the content and urgency of the report was understood at the time of direct communication. ? Chest x-ray: Attestation: I personally reviewed and interpreted this imaging study as follows: Radiologist's impression: EXAMINATION: XR CHEST CLINICAL INFORMATION: Hypotension COMPARISON: 10/10/2022 TECHNIQUE: Frontal view of the chest was obtained. FINDINGS: The heart and pulmonary vessels are unremarkable. Left lower lobe atelectasis/scarring is again seen. No consolidations, effusions or lung masses. Degenerative changes are present in the spine. XR/XR chest 1V IMPRESSION: No acute intrathoracic disease. Chest x-ray status post central line placement: Attestation: I personally reviewed and interpreted this imaging study as follows: ECG Data Attestation: I personally reviewed and interpreted this ECG as follows: Prior ECG tracings: available for review Interpretation: Vent. rate 75 BPM CA interval 154 ms QRS duration 86 ms QT/QTc 420/469 ms P-R-T axes 67 49 36 Normal sinus rhythm Low voltage QRS Borderline ECG When compared with ECG of 10-OCT-2022 10:00, Premature atrial complexes are no longer Present 18-OCT-2022 18:31:00 Critical Care Time Critical Care Time Critical Care Time: Yes Total Critical Care Time: 120 Attestation: I have personally provided critical care time exclusive of time spent on separately billable procedures. Time includes review of laboratory data, radiology results, discussion with consultants, and monitoring for potential decompensation. Interventions were performed as documented. Discharge Plan Discharge Clinical Impression: Anemia, Sepsis, Hypotension, Urinary tract infection, Hydronephrosis with renal and ureteral calculus obstruction Patient Disposition: Admitted As Inpatient
--- NOTE | 2022-10-18 18:03 | ECG_ITS ---
Test Reason : LOW BLOOD PRESSURE Blood Pressure : / mmHG Vent. Rate : 075 BPM Atrial Rate : 075 BPM P-R Int : 154 ms QRS Dur : 086 ms QT Int : 420 ms P-R-T Axes : 067 049 036 degrees QTc Int : 469 ms Normal sinus rhythm Low voltage QRS Nonspecific T wave abnormality Abnormal ECG When compared with ECG of 10-OCT-2022 10:00, Premature atrial complexes are no longer Present Referred By: Phyllis Price Electronically Signed By:KANG PEREZ MD
[2022-10-18] MEDS: 0.9 % Sodium Chloride 1,000 ML 999 ML IVCONT ×2 (18:19→20:39)
[2022-10-18 18:46] LABS: Mean Corpuscular HGB Conc 33.3 g/dl (31.0-35.0); Mean Corpuscular Hemoglobin 31.3 pg (27.0-33.0); Mean Corpuscular Volume 93.8 fL (80.0-98.0); Mean Platelet Volume 10.5 fL (9.4-12.3); NRBC Pct Auto 0.1 /100WBC (0.0-0.2); Platelet Count 175 X10*3/uL (160-400); Red Blood Count 2.24 X10*6/uL (4.20-5.50); Red Cell Distribution Width 20.3 % (11.0-16.0)
[2022-10-18 18:48] LABS: WBC ABN SCTR FOR CBC 1; White Blood Count 26.8 X10*3/uL (4.8-10.8)
[2022-10-18 18:58] LABS: Lactic Acid 3.7 mmol/L (0.5-2.0)
[2022-10-18 19:04] LABS: Troponin-I High Sensitivity < 3.5 ng/L (<3.5-17.0)
[2022-10-18] MEDS: Midodrine HCl 5 MG TABLET PO (19:04)
[2022-10-18 19:10] LABS: Appearance Urine Cloudy; Color Urine Dark Yellow; Glucose Urine UA Negative (Negative); Leukocyte Esterase Urine Large (3+) (Negative); Nitrite Urine Negative (Negative); PH 5.5 (5.0-9.0); Specific Gravity - Urine 1.015 (1.005-1.025); UMIC TRIGGER UACC YES; Urine Blood Moderate (2+) (Negative); Urine Ketones Negative (Negative); Urine Protein Negative (Neg-Trace)
--- NOTE | 2022-10-18 19:14 | PC.NURSE ---
patient a/ox 3 . pearrla breathing even and unlabored , lungs clear throughout . heart rate regular at 76 beats per minute . skin pale ,warm and dry . patient has increased weakness . Abdomen soft not tender . positive bowel sounds throughout . I. V placed in right A.C labs obtained and sent . urine obtained and sent . patient on furnace hand . IV fluids started as ordered . patient aware of plan of care .
[2022-10-18 19:18] LABS: Amphetamine Screen Urine Not Detected (Not Detect); Barbiturates, Urine Not Detected (Not Detect); Benzodiazepines Screen Urine Not Detected (Not Detect); Cannabinoid Screen Urine Not Detected (Not Detect); Cocaine Screen Urine Not Detected (Not Detect); Fentanyl, urine Not Detected (Not Detect); Opiate Screen Urine Not Detected (Not Detect); Phencyclidine Screen Urine Not Detected (Not Detect)
[2022-10-18 19:26] LABS: Influenza A PCR NEGATIVE (Negative); Influenza B PCR NEGATIVE (Negative); Resp Syncy Virus RNA Qual PCR NEGATIVE (Negative); SARS COV2 PCR INHOUSE NEGATIVE (Negative)
[2022-10-18 19:32] LABS: Band Neutrophils Percent 6 % (3-5); Lymphocytes Absolute Manual 2.4 X10*3/uL (1.2-4.9); Lymphocytes Percent Manual 9 % (20-40); Metamyelocytes Absolute 0.3 X10*3/uL; Metamyelocytes Percent 1 %; Monocytes Absolute Manual 1.1 X10*3/uL (0.1-1.2); Monocytes Percent Manual 4 % (2-11); Neutrophils Percent Manual 80 % (45-73); RBC Morphology NOTED
[2022-10-18 19:33] LABS: Macrocytosis 1+ (5-14) /OIF; Microcytosis 1+ (5-14) /OIF
[2022-10-18 19:34] LABS: Platelet Estimate SLIGHTLY DECREASED (NORMAL); Platelet Morphology Comment NORMAL
[2022-10-18 19:35] LABS: Schistocytes 2+ (3-5) /OIF
[2022-10-18 19:37] LABS: Burr Cells 3+ (>5) /OIF; Dohle Bodies PRESENT; Hypochromasia 1+ (5-14) /OIF; Polychromasia 1+ (0-2) /OIF; Smudge Cells PRESENT; Toxic Granulation PRESENT; Toxic Vacuolation PRESENT
[2022-10-18 20:00] LABS: Alanine Aminotransferase 139 U/L (0-31); Albumin Level 1.7 g/dL (3.5-5.0); Alkaline Phosphatase 208 U/L (39-117); Anion Gap 13 (12-20); Aspartate Amino Transferase 59 U/L (5-31); Bilirubin Direct 1.7 mg/dL (0.0-0.5); Bilirubin Total 2.4 mg/dL (0.0-1.0); Blood Urea Nitrogen 41 mg/dL (9-16); Calcium 7.2 mg/dL (8.4-10.2); Carbon Dioxide 14 mmol/L (22-29); Chloride 103 mmol/L (96-108); Creatinine Clr Calc Pharmacy 19.9; Estimated Glomerular Filt Rate 32; Glucose Random 84 mg/dL (60-115); Lipase 5 U/L (8-78); Magnesium 1.7 mg/dL (1.6-2.6); Potassium 3.2 mmol/L (3.3-5.1); Sodium 127 mmol/L (135-145); Total Protein 3.5 g/dL (6.5-8.0)
--- NOTE | 2022-10-18 20:21 | PC.NURSE ---
2000 ROUNDING DONE ,PT VS TAKEN AND PT WAS ASSISTED UNTO BED TILLMAN ,AND PT VOIDED LARGE AMOUNT OF URINE ,NEREIDA CARE GIVEN AND WARM BLANKET ,CALL SALAMANCA WITHIN REACH .
[2022-10-18 20:33] LABS: Reflex Lactate? Lactic Acid Added
[2022-10-18] MEDS: levoFLOXacin 750 MG TABLET PO (20:38)
[2022-10-18] MEDS: vancomycin HCL 1,250 MG in 0.9 % Sodium Chloride 250 ML 166.67 MG IV (20:39)
--- NOTE | 2022-10-18 21:06 | PC.NURSE ---
patient remains pale, but conversational, oriented x3. first unit of blood infusing now. vanco infusing, as well as second liter of fluids. BPs remain hypotensive- primarily 70s/40s.
[2022-10-18 21:13] LABS: Bacteria Urine 4+ (None Seen); Hyaline Casts Urine 0-2 /LPF (0-2); UACC Culture Trigger YES; WBC Urine 21-50 /HPF (0-5)
--- NOTE | 2022-10-18 22:07 | PC.NURSE ---
2200 ROUNDING DONE ,PT VS TAKEN ,PT ASK FOR MORE WARM BLANKETS ,CALL SALAMANCA WITHIN REACH ,PT WATCHING TELEVISION .
[2022-10-18 22:30] LABS: OBS Int Ctl Valid YES; OBS1 POSITIVE (NEGATIVE)
--- NOTE | 2022-10-18 23:01 | PC.NURSE ---
patient remains hypotensive. Candy provider made aware, 3rd liter of fluid hung per md and second unit of blood going up now. patient to ct on tele with this rn
[2022-10-18 23:07] LABS: Reflex Lactate? 2 Y
[2022-10-19] VITALS (38 sets, daily range): BP systolic 77–104; BP diastolic 42–65; PULSE 88–130; RESP 13–31; TEMP 36.4–36.8; O2SAT 92–98; BMI 23.6; BMI 25.4
--- NOTE | 2022-10-19 00:09 | PC.NURSE ---
MD bedside now for central line insertion.
[2022-10-19 00:51] LABS: Glucose, Whole Blood 61 mg/dL (60-115)
[2022-10-19] MEDS: Dextrose 50 % 25 GM/50 ML SYRINGE IVPUSH (00:53)
[2022-10-19 00:58] LABS: ~Lactic Acid-LAB USE ONLY 2.9 mmol/L (0.5-2.0)
--- NOTE | 2022-10-19 01:19 | PM.CCHP ---
History of Present Illness Date of Service: 10/19/22 Attending physician on admission: Zulema Dean Chief Complaint: Hypotension Ms. Davalos is a 51 y.o. female with PMH of Afib, anxiety, asthma, bipolar disorder, bronchitis, complications from gastric bypass surgery, hypokalemia, chronic hypotension on midodrine, migraines, and PTSD. ?She has a MOLST that indicates a modified code status; she would like CPR but does not want intubation, dated 10/02/22. The patient was admitted to [facility] for rehab after a right femoral neck fracture with surgical repair on 10/02/2022. ?Since the surgery she has been using a wheelchair as she is supposed to be nonweightbearing on the right leg.? Prior to her injury she was living alone in an apartment in [place] and ambulated with a rolling walker and help from a SOURCING SPECIALIST. ?She reports a history of multiple UTIs. She saw Dr. Willingham about a month ago and was told she had 3 small kidney stones. She missed her follow-up appointment due to her injury. She was seen here in our emergency room on 10/10/2022 and treated with Bactrim for a urinary tract infection.? At that time she was also noted to be hypokalemic. Yesterday evening, she was brought in by ambulance for hypotension, fatigue, and weakness. On arrival to the ED, the patient was awake and alert, oriented x 4. She stated that her blood pressure was 60/30 at the custodial and that she had not urinated in over 6 hours. She is prescribed oxycodone, but has not taken that in several days. She stated she does not feel like herself, is cold, has chest pain, and is easily fatigued. SpO2 was 96% on room air, Heart rate 79, blood pressure 70/33, respiratory rate 18. Afebrile. Labs showed WBC 26.8, HGB 7.0, BUN/creat 41/1.6, Sodium 127, Potassium 3.2.? Lactic acid 3.7.? Tbili 2.4, AST 59, ALT 139, Alk Phos 208. COVID-19 and influenza tested negative.? U/A showed 21-50 WBC, largel LE, neg nitrite, 4+ bacti.?Stool occult blood was positive. CT/CT abdomen pelvis showed? a 9 x 4 x 4 mm obstructing proximal right ureteral calculus with hydronephrosis, atelectasis/infiltrate at the left lung base along with a small left pleural effusion, an enlarged fatty liver, and a large stool burden in the colon. While in the ED, she was given 2 L of saline for fluid resuscitation, 2 units red blood cells, and 5 mg of midodrine. ?She remained hypotensive. ?A central line was placed and she was started on Levophed. She was given an amp of D50 for a blood sugar of 61.?Dr. Gomez updated on urosepsis with obstructing stone with a? plan for 0800 OR. Review of Systems Constitutional: Constitutional: Reports chills, Reports fatigue, Denies fever(s) and Reports weakness ENT: Reports dry mouth Cardiovascular: Cardiovascular: Denies chest pain and Denies dyspnea Respiratory: Respiratory: Denies cough and Denies dyspnea Gastrointestinal: Gastrointestinal: Denies diarrhea, Reports nausea and Denies vomiting Genitourinary: Genitourinary: Reports flank pain (Right) Musculoskeletal: Musculoskeletal: Reports abnormal gait (Non-weightbearing s/p femoral neck repair), Denies arthralgias and Denies joint swelling Integumentary/Breasts: Skin/Breast: Reports wounds (Right hip surgical incision) Neurologic: Reports abnormal gait (Non-weightbearing s/p femoral neck repair) and Reports weakness Psychiatric: Psychiatric: Reports abnormal sleep pattern and Reports auditory hallucinations (auditory hallucinations when trying to sleep) Endocrine: Endocrine: Reports fatigue, Denies polydipsia and Denies polyuria Hematologic/Lymphatic: Hematologic/Lymphatic: Reports as per [facility] Past Medical History Medical History (Updated 10/19/22 @ 02:54 by Alyssa Sloan NP) Afib Anxiety Arthritis Asthma Bipolar 1 disorder Bronchitis Complications of gastric bypass surgery Hypokalemia Hypotension Migraines PTSD (post-traumatic stress disorder) Functional capacity: wheelchair bound (baseline) Surgical History Surgical History H/O: History of cholecystectomy Social History Social History Household Members: None Housing: Apartment Do you presently have visiting nurse or other home services: Yes Alcohol intake: never Patient Tobacco Use Status: Former Tobacco user Quit Date: 2018 Tobacco use type: Cigarette Smoked in Last 30 Days: No Use of substances other than those prescribed or required for medical reasons: No Have you been hit, kicked, punched, or otherwise hurt by someone within the past year? If so, by whom?: No Do you feel safe in your current relationship?: No Current Relationship Is there a partner from a previous relationship who is making you feel unsafe now?: No Are you made to feel afraid or neglected: No Advance Directives: No Advance Directives Information Provided: No Do you have thoughts of harming others: None Do you have a plan to hurt others: No Plan Recently lost weight without trying: Yes How much weight loss: Unsure Eating poorly because of decreased appetite: No Nutrition screen score: 4 Patient : No : No Poor oral hygiene: No Travel History Ebola Risk: Travel/Contact With Anyone From Affected Area/s: No Has Patient Experienced Ebola Symptoms: No Meds Allergies Allergy/AdvReac Type Severity Reaction Status Date / Time cephalexin Allergy Swelling Verified 02/07/21 18:19 ciprofloxacin [From Cipro] Allergy Swelling Verified 02/07/21 18:19 coconut oil Allergy Swelling Verified 10/19/22 01:50 duloxetine [From Cymbalta] Allergy Swelling Verified 02/07/21 18:19 Penicillins Allergy Swelling Verified 02/07/21 18:19 Active Medications: Current Medications Norepinephrine Bitartrate (Levophed) 8 mg in 250 mls @ 0 mls/hr IVCONT .Q0M [facility]; Protocol Last Titration: 10/19/22 00:53 Dose: 0.15 mcg/kg/min, 14.03 mls/hr Potassium Chloride/Sodium Chloride (Kcl 20 Meq In 0.9 % Sodium Chl) 20 meq in 1,000 mls @ 80 mls/hr IVCONT .[id number] [facility] Pharmacy Consult (Consult Rx Vancomycin Dosing) 1 each MISCELLANE DAILY PRN PRN Reason: Consult order Home Medications Medication Instructions Recorded Confirmed Last Taken Type acetaminophen 325 mg tablet 650 mg PO Q6H PRN Pain 10/19/22 10/19/22 Unknown History albuterol sulfate 90 mcg/actuation 2 puff inhalation Q6H PRN Wheezing 10/19/22 10/19/22 Unknown History aerosol inhaler ascorbic acid (vitamin C) 250 mg 250 mg PO DAILY 10/19/22 10/19/22 Unknown History tablet bacillus coagulans-inulin 1 1 cap PO DAILY 10/19/22 10/19/22 Unknown History billion cell-250 mg capsule (Probiotic Formula (inulin)) calcium carbonate 500 mg calcium 1,000 mg PO BID 10/19/22 10/19/22 Unknown History (1,250 mg) chewable tablet cholecalciferol (vitamin D3) 1,250 1,250 mcg PO WE 10/19/22 10/19/22 Unknown History mcg (50,000 unit) tablet clonazepam 1 mg tablet 1 mg PO TID 10/19/22 10/19/22 Unknown History cyanocobalamin (vitamin B-12) 500 500 mcg PO DAILY 10/19/22 10/19/22 Unknown History mcg tablet fluoxetine 20 mg tablet 20 mg PO DAILY 10/19/22 10/19/22 Unknown History fluticasone 500 mcg-salmeterol 50 1 inh inhalation BID 10/19/22 10/19/22 Unknown History mcg/dose blistr powdr for inhalation (Wixela Inhub) fluticasone propionate 50 1 spray intranasal DAILY 10/19/22 10/19/22 Unknown History mcg/actuation nasal spray,suspension lamotrigine 150 mg tablet 150 mg PO BID 10/19/22 10/19/22 Unknown History midodrine 5 mg tablet 5 mg PO TID 10/19/22 10/19/22 Unknown History olanzapine 2.5 mg tablet (Zyprexa) 2.5 mg PO BEDTIME PRN Anxiety 10/19/22 10/19/22 Unknown History omeprazole 40 mg capsule,delayed 40 mg PO DAILY 10/19/22 10/19/22 Unknown History release ondansetron HCl 4 mg tablet 4 mg PO Q8H PRN Nausea 10/19/22 10/19/22 Unknown History risperidone 1 mg tablet (Risperdal) 1 mg PO DAILY 10/19/22 10/19/22 Unknown History risperidone 2 mg tablet 2 mg PO BEDTIME 10/19/22 10/19/22 Unknown History rivaroxaban 20 mg tablet (Xarelto) 20 mg PO DAILY@1700 10/19/22 10/19/22 Unknown History sucralfate 100 mg/mL oral 10 ml PO QID 10/19/22 10/19/22 Unknown History suspension thiamine HCl (vitamin B1) 100 mg 100 mg PO DAILY 10/19/22 10/19/22 Unknown History tablet topiramate 25 mg tablet 25 mg PO DAILY 10/19/22 10/19/22 Unknown History topiramate 25 mg tablet 75 mg PO BEDTIME 10/19/22 10/19/22 Unknown History Physical Exam Vital Signs: Vital Signs: Last Vital Signs Temp 98.2 F 10/19/22 00:50 Pulse 108 H 10/19/22 00:55 Resp 15 10/19/22 00:50 BP 91/52 L 10/19/22 00:55 Pulse Ox 97 10/19/22 00:50 O2 Del Method 10/19/22 00:50 BMI result Body Mass Index 32.2 Const: General: cooperative, no acute distress and alert Orientation/consciousness: patient oriented x3 (answering appropriately.) HEENT: Head: Yes normocephalic and Yes atraumatic General nose exam: Normal external nose present (Nares patent, septum midline, sinuses nontender bilaterally.) Face and sinus: Yes normal facial exam Mouth: Normal oral and palatal mucosa present (No thrush, tongue in midline, mucosa moist.) Throat: Yes other (No erythema, no exudate.) Eyes: General: appearance normal, both eyes and all related structures Pupils: Equal, round and reactive pupils present Neck: Neck: Yes supple (no thyromegaly, trachea midline.) Carotids: normal carotid upstroke Resp: Auscultation: clear to auscultation bilaterally (normal work of breathing, no accessory muscle use) Cardio: Jugular venous distension: no JVD Rate: regular rate Rhythm: regular rhythm Heart sounds: no gallops, no murmurs and no rubs Peripheral pulses: Peripheral pulses 2+ throughout GI: Palpation (GI): Soft to palpation (nondistended.) and nontender : General: Yes CVA tenderness on the right and localized Back/Spine/Pelvis: Back: CVA tenderness Skin: General skin exam: pallor Wounds: wounds noted (Right hip surgical incision) Neuro: General: patient oriented x3 (answering appropriately.) Cranial nerves: Yes Equal, round and reactive pupils present Cognition (Neuro): normal cognition Extrem: General: Yes full ROM, Yes capillary refill normal and Yes no clubbing, cyanosis or edema Psych: Speech and movement: Normal speech and movement present and Clear speech present Affect: normal affect Attitude: cooperative Thought content: Hallucination(s) present auditory Results Labs CBC and Chem 7: 10/19/22 05:19 10/19/22 14:30 Labs: Laboratory Results - last 24 hr 10/18/22 10/18/22 10/18/22 18:31 18:31 18:31 MCV 93.8 MCH 31.3 MCHC 33.3 RDW 20.3 H Plt Count 175 D MPV 10.5 Immature Gran % (Auto) Cancelled Neut % (Auto) Cancelled Lymph % (Auto) Cancelled [place] % (Auto) Cancelled Eos % (Auto) Cancelled Baso % (Auto) Cancelled Lymph # (Auto) Cancelled [place] # (Auto) Cancelled Eos # (Auto) Cancelled Baso # (Auto) Cancelled Abs Immat Gran (auto) Cancelled Absolute Neuts (auto) Cancelled Absolute Nucleated RBC 0.020 H Nucleated RBC % (auto) 0.1 Neutrophils % (Manual) 80 H Band Neutrophils % 6 H Lymphocytes % (Manual) 9 L Monocytes % (Manual) 4 Metamyelocytes % 1 Abs Neuts (Manual) 23.0 H Lymphocytes # (Manual) 2.4 Monocytes # (Manual) 1.1 Metamyelocytes # 0.3 Smudge Cells PRESENT Toxic Granulation PRESENT Toxic Vacuolation PRESENT Dohle Bodies PRESENT Platelet Estimate SLIGHTLY DECREASED Plt Morphology Comment NORMAL RBC Morphology NOTED Polychromasia 1+ (0-2) Hypochromasia 1+ (5-14) Microcytosis 1+ (5-14) Macrocytosis 1+ (5-14) [place] Cells 3+ (>5) Schistocytes 2+ (3-5) Anion Gap Estim Creat Clear Calc Estimated GFR POC Glucose Random Glucose Lactic Acid 3.7 H* Lactic Acid F/U @ 2Hr Lactic Acid F/U @ 4Hr Calcium Magnesium Total Bilirubin Direct Bilirubin AST ALT Alkaline Phosphatase Troponin I High Sens < 3.5 Total Protein Albumin Lipase Urine Color Urine Appearance Urine pH Ur Specific [place] Urine Protein Urine Glucose (UA) Urine Ketones Urine Blood Urine Nitrite Ur Leukocyte Esterase Urine RBC Urine WBC Ur Squamous Epith Cells Urine Bacteria Hyaline Casts Stool Occult Blood Urine Opiates Screen Urine Fentanyl Screen Ur Barbiturates Screen Ur Phencyclidine Scrn Ur Amphetamines Screen U Benzodiazepines Scrn Urine Cocaine Screen U Marijuana (THC) Screen Influenza Type A (PCR) Influenza Type B (PCR) RSV RNA Qual (PCR) SARS-CoV-2 RNA (RT-PCR) Blood Type Antibody Screen Crossmatch 10/18/22 10/18/22 10/18/22 18:31 18:56 18:56 MCV MCH MCHC RDW Plt Count MPV Immature Gran % (Auto) Neut % (Auto) Lymph % (Auto) [place] % (Auto) Eos % (Auto) Baso % (Auto) Lymph # (Auto) [place] # (Auto) Eos # (Auto) Baso # (Auto) Abs Immat Gran (auto) Absolute Neuts (auto) Absolute Nucleated RBC Nucleated RBC % (auto) Neutrophils % (Manual) Band Neutrophils % Lymphocytes % (Manual) Monocytes % (Manual) Metamyelocytes % Abs Neuts (Manual) Lymphocytes # (Manual) Monocytes # (Manual) Metamyelocytes # Smudge Cells Toxic Granulation Toxic Vacuolation Dohle Bodies Platelet Estimate Plt Morphology Comment RBC Morphology Polychromasia Hypochromasia Microcytosis Macrocytosis Tenisha Cells Schistocytes Anion Gap Estim Creat Clear Calc Estimated GFR POC Glucose Random Glucose Lactic Acid Lactic Acid F/U @ 2Hr Lactic Acid F/U @ 4Hr Calcium Magnesium Total Bilirubin Direct Bilirubin AST ALT Alkaline Phosphatase Troponin I High Sens Total Protein Albumin Lipase Urine Color Dark Yellow Urine Appearance Cloudy Urine pH 5.5 Ur Specific [place] 1.015 Urine Protein Negative Urine Glucose (UA) Negative Urine Ketones Negative Urine Blood Moderate (2+) H Urine Nitrite Negative Ur Leukocyte Esterase Large (3+) H Urine RBC 6-10 H Urine WBC 21-50 H Ur Squamous Epith Cells 11-20 Urine Bacteria 4+ Hyaline Casts 0-2 Stool Occult Blood Urine Opiates Screen Not Detected Urine Fentanyl Screen Not Detected Ur Barbiturates Screen Not Detected Ur Phencyclidine Scrn Not Detected Ur Amphetamines Screen Not Detected U Benzodiazepines Scrn Not Detected Urine Cocaine Screen Not Detected U Marijuana (THC) Screen Not Detected Influenza Type A (PCR) NEGATIVE Influenza Type B (PCR) NEGATIVE RSV RNA Qual (PCR) NEGATIVE SARS-CoV-2 RNA (RT-PCR) NEGATIVE Blood Type Antibody Screen Crossmatch 10/18/22 10/18/22 10/18/22 19:37 19:37 20:51 MCV MCH MCHC RDW Plt Count MPV Immature Gran % (Auto) Neut % (Auto) Lymph % (Auto) [place] % (Auto) Eos % (Auto) Baso % (Auto) Lymph # (Auto) [place] # (Auto) Eos # (Auto) Baso # (Auto) Abs Immat Gran (auto) Absolute Neuts (auto) Absolute Nucleated RBC Nucleated RBC % (auto) Neutrophils % (Manual) Band Neutrophils % Lymphocytes % (Manual) Monocytes % (Manual) Metamyelocytes % Abs Neuts (Manual) Lymphocytes # (Manual) Monocytes # (Manual) Metamyelocytes # Smudge Cells Toxic Granulation Toxic Vacuolation Dohle Bodies Platelet Estimate Plt Morphology Comment RBC Morphology Polychromasia Hypochromasia Microcytosis Macrocytosis [place] Cells Schistocytes Anion Gap 13 Estim Creat Clear Calc 19.9 Estimated GFR 32 POC Glucose Random Glucose 84 Lactic Acid Lactic Acid F/U @ 2Hr 3.0 H* Lactic Acid F/U @ 4Hr Calcium 7.2 L D Magnesium 1.7 Total Bilirubin 2.4 H Direct Bilirubin 1.7 H AST 59 H ALT 139 H Alkaline Phosphatase 208 H Troponin I High Sens Total Protein 3.5 L Albumin 1.7 L Lipase 5 L Urine Color Urine Appearance Urine pH Ur Specific [place] Urine Protein Urine Glucose (UA) Urine Ketones Urine Blood Urine Nitrite Ur Leukocyte Esterase Urine RBC Urine WBC Ur Squamous Epith Cells Urine Bacteria Hyaline Casts Stool Occult Blood Urine Opiates Screen Urine Fentanyl Screen Ur Barbiturates Screen Ur Phencyclidine Scrn Ur Amphetamines Screen U Benzodiazepines Scrn Urine Cocaine Screen U Marijuana (THC) Screen Influenza Type A (PCR) Influenza Type B (PCR) RSV RNA Qual (PCR) SARS-CoV-2 RNA (RT-PCR) Blood Type O Positive Antibody Screen NEGATIVE Crossmatch See Detail 10/18/22 10/19/22 10/19/22 21:35 00:34 00:46 MCV MCH MCHC RDW Plt Count MPV Immature Gran % (Auto) Neut % (Auto) Lymph % (Auto) [place] % (Auto) Eos % (Auto) Baso % (Auto) Lymph # (Auto) [place] # (Auto) Eos # (Auto) Baso # (Auto) Abs Immat Gran (auto) Absolute Neuts (auto) Absolute Nucleated RBC Nucleated RBC % (auto) Neutrophils % (Manual) Band Neutrophils % Lymphocytes % (Manual) Monocytes % (Manual) Metamyelocytes % Abs Neuts (Manual) Lymphocytes # (Manual) Monocytes # (Manual) Metamyelocytes # Smudge Cells Toxic Granulation Toxic Vacuolation Dohle Bodies Platelet Estimate Plt Morphology Comment RBC Morphology Polychromasia Hypochromasia Microcytosis Macrocytosis Tenisha Cells Schistocytes Anion Gap Estim Creat Clear Calc Estimated GFR POC Glucose 61 Random Glucose Lactic Acid Lactic Acid F/U @ 2Hr Lactic Acid F/U @ 4Hr 2.9 H* Calcium Magnesium Total Bilirubin Direct Bilirubin AST ALT Alkaline Phosphatase Troponin I High Sens Total Protein Albumin Lipase Urine Color Urine Appearance Urine pH Ur Specific [place] Urine Protein Urine Glucose (UA) Urine Ketones Urine Blood Urine Nitrite Ur Leukocyte Esterase Urine RBC Urine WBC Ur Squamous Epith Cells Urine Bacteria Hyaline Casts Stool Occult Blood POSITIVE Urine Opiates Screen Urine Fentanyl Screen Ur Barbiturates Screen Ur Phencyclidine Scrn Ur Amphetamines Screen U Benzodiazepines Scrn Urine Cocaine Screen U Marijuana (THC) Screen Influenza Type A (PCR) Influenza Type B (PCR) RSV RNA Qual (PCR) SARS-CoV-2 RNA (RT-PCR) Blood Type Antibody Screen Crossmatch ECG Attestation: I personally reviewed and interpreted this ECG as follows: (Vent. rate 75 BPM SC interval 154 ms QRS duration 86 ms QT/QTc 420/469 ms P-R-T axes 67 49 36 Normal sinus rhythm Low voltage QRS Borderline ECG When compared with ECG of 10-OCT-2022 10:00, Premature atrial complexes are no longer Present) Prior ECG tracings: available for review Imaging Radiologist's Impressions: Impressions Chest X-Ray 10/18/22 19:15 IMPRESSION: No acute intrathoracic disease. Abdomen/Pelvis CT 10/18/22 22:50 IMPRESSION: 9 x 4 x 4 mm obstructing proximal right ureteral calculus with hydronephrosis which is almost certainly the source of the patient's urosepsis. Other incidental findings include: 1. Small chronic left pleural effusion with associated pleural thickening and left basilar atelectasis/infiltrate. 2. Minimal [id number]-like opacities in the right lower lobe. 3. Enlarged fatty liver. 4. Status post cholecystectomy and gastric surgery. 5. Large stool burden in the colon. 6. Mild anasarca. Fleischner guidelines were followed. This critical result was discussed with STANLEY Galaviz at 11:20 PM on the day of the and it was ascertained that the content and urgency of the report was understood at the time of direct communication. Chest CT 10/18/22 22:50 IMPRESSION: 9 x 4 x 4 mm obstructing proximal right ureteral calculus with hydronephrosis which is almost certainly the source of the patient's urosepsis. Other incidental findings include: 1. Small chronic left pleural effusion with associated pleural thickening and left basilar atelectasis/infiltrate. 2. Minimal [id number]-like opacities in the right lower lobe. 3. Enlarged fatty liver. 4. Status post cholecystectomy and gastric surgery. 5. Large stool burden in the colon. 6. Mild anasarca. Fleischner guidelines were followed. This critical result was discussed with STANLEY Galaviz at 11:20 PM on the day of the and it was ascertained that the content and urgency of the report was understood at the time of direct communication. Chest X-Ray 10/19/22 00:30 IMPRESSION: Right IJ line with tip in mid SVC, without complication. Assessment and Plan (1) Sepsis: Status: Acute (2) Hypotension: Status: Acute (3) Hydronephrosis with renal and ureteral calculus obstruction: Status: Acute (4) Urinary tract infection: Status: Acute (5) ELYSE (acute kidney injury): Status: Acute (6) Hypokalemia: Status: Acute (7) Hyponatremia: Status: Acute (8) Hypoglycemia: Status: Acute (9) Anemia: Status: Acute Plan Assessment: 51-year-old female past medical history of Afib, anxiety, asthma, bipolar disorder, bronchitis, complications from gastric bypass surgery, hypokalemia, chronic hypotension on midodrine, migraines, PTSD and recent fall with femoral neck fracture requiring repair, seen recently by urologist for frequent UTIs and kidney stones, admitted with sepsis, hypotension, and right ureteral calculus with hydronephrosis. Plan: Neuro:? No acute issues. Cardiac:? No acute issues. Pulmonary:? No acute issues. Renal:? Hydronephrosis with renal and ureteral calculus obstruction. ELYSE. Maintenance IV fluids. Renal consult. Endo:? No acute issues. Monitor for hypoglycemia. GI:? No acute issues. Underlying constipation, hepatic steatosis. ID:? Recurrent UTI, likely urosepsis. Continue Levaquin. Heme/Onc:? Anemia s/p 2 ux PRBC. Monitor for bleeding. Psych:? Bipolar. Nighttime auditory hallucinations. Hold meds while NPO. Miscellaneous:? No acute issues. Prophylaxis:? Bilateral pneumatic boots. Diet:? NPO Critical Care Time Critical Care Time (minutes): 90
[2022-10-19] MEDS: Ketorolac Tromethamine 15 MG/ML VIAL IVPUSH (02:21)
[2022-10-19] MEDS: ondansetron HCL 4 MG/2 ML VIAL IVPUSH (02:22)
[2022-10-19] MEDS: KCl 20 mEq in 0.9 % Sodium ChL 20 MEQ/1,000 ML IV.SOLN 80 MEQ IVCONT ×2 (02:29→03:38)
[2022-10-19] MEDS: Albumin Human 25 % 100 ML IV (03:27)
[2022-10-19] MEDS: 0.9 % Sodium Chloride 500 ML IV (04:36)
[2022-10-19 04:47] LABS: Glucose, Whole Blood 77 mg/dL (60-115)
[2022-10-19 05:36] LABS: Hematocrit 31.1 % (37.0-47.0); Hemoglobin 10.6 g/dl (12.0-16.0); Mean Corpuscular HGB Conc 34.1 g/dl (31.0-35.0); Mean Corpuscular Hemoglobin 30.7 pg (27.0-33.0); Mean Corpuscular Volume 90.1 fL (80.0-98.0); Mean Platelet Volume 10.3 fL (9.4-12.3); NRBC Pct Auto 0.1 /100WBC (0.0-0.2); Platelet Count 120 X10*3/uL (160-400); Red Blood Count 3.45 X10*6/uL (4.20-5.50); Red Cell Distribution Width 17.4 % (11.0-16.0)
[2022-10-19 05:57] LABS: Band Neutrophils Percent 5 % (3-5); Lymphocytes Absolute Manual 0.3 X10*3/uL (1.2-4.9); Lymphocytes Percent Manual 1 % (20-40); Monocytes Absolute Manual 0.3 X10*3/uL (0.1-1.2); Monocytes Percent Manual 1 % (2-11); Neutrophils Absolute Manual 25.5 X10*3/uL (2.0-8.3); Neutrophils Percent Manual 93 % (45-73)
[2022-10-19 05:59] LABS: Acanthocytes 2+ (3-5) /OIF; Basophilic Stippling 1+ (0-2) /OIF; Burr Cells 2+ (3-5) /OIF; Dohle Bodies PRESENT; Platelet Estimate NORMAL (NORMAL); Platelet Morphology Comment NORMAL; Polychromasia 1+ (0-2) /OIF; RBC Morphology NOTED; Schistocytes 1+ (0-2) /OIF; Spherocytes 1+ (0-2) /OIF; Toxic Vacuolation PRESENT
[2022-10-19 06:10] LABS: Albumin Level 2.2 g/dL (3.5-5.0); Anion Gap 15 (12-20); Blood Urea Nitrogen 37 mg/dL (9-16); Calcium 7.3 mg/dL (8.4-10.2); Carbon Dioxide 14 mmol/L (22-29); Chloride 109 mmol/L (96-108); Estimated Glomerular Filt Rate 42; Glucose Random 71 mg/dL (60-115); Magnesium 1.5 mg/dL (1.6-2.6); Phosphorus 3.2 mg/dL (2.7-4.5); Potassium 2.6 mmol/L (3.3-5.1); Sodium 135 mmol/L (135-145)
[2022-10-19] MEDS: KCl 40 mEq in 5% Dex/0.45% Sod 40 MEQ/1,000 ML IV.SOLN 125 MEQ IVCONT ×2 (07:46→14:56)
--- NOTE | 2022-10-19 08:09 | PM.UROCN ---
History of Present Illness Consult details Consult date: 10/19/22 Narrative: Consulting complaint right ureteric upper stone with hydronephrosis and question of urosepsis Sandrita is a pleasant 51-year-old female Admitted through emergency room from care facility Had been at care facility following fracture of both hips Right hip repaired in March Seen here for hypotension and fatigue Treated for UTI 2 weeks ago Imaging - CT abdomen pelvis performed and reviewed There is a 9 x 4 x 4 mm obstructing proximal right ureteral calculus present at measures? 562 Hounsfield units and is 9 cm from the posterior axillary line. There is moderate associated hydronephrosis Laboratories current - creatinine 1.34 dropped from 1.7, WBC 26 Currently in ICU receiving pressure support for hypotension, antibiotics, fluids Is able to talk and answer questions easily Based on obstructing stone will require cystoscopy with right retrograde and stent placement Review of Systems Constitutional: Constitutional: Reports as per HPI and Reports no additional constitutional complaints Cardiovascular: Cardiovascular: Reports as per HPI and Reports no additional cardiovascular complaints Respiratory: Respiratory: Reports as per HPI and Reports no additional respiratory complaints Gastrointestinal: Gastrointestinal: Reports as per HPI and Reports no additional gastrointestinal complaints Genitourinary: Genitourinary: Reports as per HPI Musculoskeletal: Musculoskeletal: Reports no additional musculoskeletal complaints and Reports as per HPI Neurologic: Reports system reviewed and no additional complaints, except as documented and Reports as per HPI [facility] Past Medical History Medical History (Updated 10/19/22 @ 02:54 by Alyssa Sloan NP) Afib Anxiety Arthritis Asthma Bipolar 1 disorder Bronchitis Complications of gastric bypass surgery Hypokalemia Hypotension Migraines PTSD (post-traumatic stress disorder) Functional capacity: wheelchair bound (baseline) Surgical History Surgical History H/O: History of cholecystectomy Social History Social History Household Members: None Housing: Apartment Do you presently have visiting nurse or other home services: Yes Alcohol intake: never Patient Tobacco Use Status: Former Tobacco user Quit Date: 2018 Tobacco use type: Cigarette Smoked in Last 30 Days: No Use of substances other than those prescribed or required for medical reasons: No Have you been hit, kicked, punched, or otherwise hurt by someone within the past year? If so, by whom?: No Do you feel safe in your current relationship?: No Current Relationship Is there a partner from a previous relationship who is making you feel unsafe now?: No Are you made to feel afraid or neglected: No Advance Directives: No Advance Directives Information Provided: No Do you have thoughts of harming others: None Do you have a plan to hurt others: No Plan Recently lost weight without trying: Yes How much weight loss: Unsure Eating poorly because of decreased appetite: No Nutrition screen score: 4 Patient : No : No Poor oral hygiene: No Travel History Ebola Risk: Travel/Contact With Anyone From Affected Area/s: No Has Patient Experienced Ebola Symptoms: No Meds Allergies Allergy/AdvReac Type Severity Reaction Status Date / Time cephalexin Allergy Swelling Verified 02/07/21 18:19 ciprofloxacin [From Cipro] Allergy Swelling Verified 02/07/21 18:19 coconut oil Allergy Swelling Verified 10/19/22 01:50 duloxetine [From Cymbalta] Allergy Swelling Verified 02/07/21 18:19 Penicillins Allergy Swelling Verified 02/07/21 18:19 Active Medications: Current Medications Famotidine (Famotidine/Pf 20 Mg/2 Ml Vial) 20 mg IVPUSH BID RUPAL Norepinephrine Bitartrate (Levophed) 8 mg in 250 mls @ 0 mls/hr IVCONT .Q0M RUPAL; Protocol Last Titration: 10/19/22 06:32 Dose: 0.32 mcg/kg/min, 29.94 mls/hr Potassium Chloride/Dextrose/Sod Cl (Kcl 40 Meq In 5% Dex/0.45% Sod) 40 meq in 1,000 mls @ 125 mls/hr IVCONT .Q8H RUPAL Last Admin: 10/19/22 07:46 Dose: 125 mls/hr Potassium Chloride (Potassium Chloride/H20) 10 meq in 100 mls @ 100 mls/hr IV Q1H RUPAL Stop: 10/19/22 08:59 Ondansetron HCl (Ondansetron Hcl 4 Mg/2 Ml Vial) 4 mg IVPUSH Q6H PRN PRN Reason: Nausea Last Admin: 10/19/22 02:22 Dose: 4 mg Physical Exam Vital Signs: Vital Signs: Last Vital Signs Temp 98.0 F 10/19/22 07:00 Pulse 113 H 10/19/22 07:00 Resp 15 10/19/22 07:00 BP 102/53 L 10/19/22 07:00 Pulse Ox 94 10/19/22 07:00 O2 Del Method 10/19/22 07:00 BMI result Body Mass Index 23.6 Const: General: cooperative, healthy appearing, comfortable and no acute distress Orientation/consciousness: patient oriented x3 HEENT: Face and sinus: Yes normal facial exam Mouth: moist mucous membranes Neck: Neck: Yes normal visual inspection, Yes full ROM and Yes trachea midline Chest: Chest palpation & inspection: normal inspection of the chest Resp: Effort & Inspection: normal respiratory effort, able to speak in complete sentences and no respiratory distress GI: Inspection: Yes normal to inspection Back/Spine/Pelvis: Cervical Spine: normal cervical lordosis Thoracic/Lumbar Spine: thoracic and lumbar spine normal to inspection Skin: General skin exam: no rashes or lesions noted Neuro: General: patient oriented x3, tone normal and moves all extremities Extrem: General: Yes normal to inspection and Yes capillary refill normal Results Labs Result diagrams: 10/19/22 05:19 10/19/22 05:19 Labs: Abnormal lab results 10/18/22 10/18/22 10/18/22 Range/Units 18:31 18:31 18:56 WBC 26.8 H (4.8-10.8) X10*3/uL RBC 2.24 L D (4.20-5.50) X10*6/uL Hgb 7.0 L* D (12.0-16.0) g/dl Hct 21.0 L* D (37.0-47.0) % RDW 20.3 H (11.0-16.0) % Plt Count (160-400) X10*3/uL Absolute Nucleated RBC 0.020 H (0.0-0.012) X10*3/uL Neutrophils % (Manual) 80 H (45-73) % Band Neutrophils % 6 H (3-5) % Lymphocytes % (Manual) 9 L (20-40) % Monocytes % (Manual) (2-11) % Abs Neuts (Manual) 23.0 H (2.0-8.3) X10*3/uL Lymphocytes # (Manual) (1.2-4.9) X10*3/uL Sodium (135-145) mmol/L Potassium (3.3-5.1) mmol/L Chloride (96-108) mmol/L Carbon Dioxide (22-29) mmol/L BUN (9-16) mg/dL Creatinine (0.5-1.4) mg/dL Lactic Acid 3.7 H* (0.5-2.0) mmol/L Lactic Acid F/U @ 2Hr (0.5-2.0) mmol/L Lactic Acid F/U @ 4Hr (0.5-2.0) mmol/L Calcium (8.4-10.2) mg/dL Magnesium (1.6-2.6) mg/dL Total Bilirubin (0.0-1.0) mg/dL Direct Bilirubin (0.0-0.5) mg/dL AST (5-31) U/L ALT (0-31) U/L Alkaline Phosphatase (39-117) U/L Total Protein (6.5-8.0) g/dL Albumin (3.5-5.0) g/dL Lipase (8-78) U/L Urine Blood Moderate (2+) H (Negative) Ur Leukocyte Esterase Large (3+) H (Negative) Urine RBC 6-10 H (0-2) /HPF Urine WBC 21-50 H (0-5) /HPF Crossmatch 10/18/22 10/18/22 10/18/22 Range/Units 19:37 19:37 20:51 WBC (4.8-10.8) X10*3/uL RBC (4.20-5.50) X10*6/uL Hgb (12.0-16.0) g/dl Hct (37.0-47.0) % RDW (11.0-16.0) % Plt Count (160-400) X10*3/uL Absolute Nucleated RBC (0.0-0.012) X10*3/uL Neutrophils % (Manual) (45-73) % Band Neutrophils % (3-5) % Lymphocytes % (Manual) (20-40) % Monocytes % (Manual) (2-11) % Abs Neuts (Manual) (2.0-8.3) X10*3/uL Lymphocytes # (Manual) (1.2-4.9) X10*3/uL Sodium 127 L (135-145) mmol/L Potassium 3.2 L (3.3-5.1) mmol/L Chloride (96-108) mmol/L Carbon Dioxide 14 L (22-29) mmol/L BUN 41 H (9-16) mg/dL Creatinine 1.69 H (0.5-1.4) mg/dL Lactic Acid (0.5-2.0) mmol/L Lactic Acid F/U @ 2Hr 3.0 H* (0.5-2.0) mmol/L Lactic Acid F/U @ 4Hr (0.5-2.0) mmol/L Calcium 7.2 L D (8.4-10.2) mg/dL Magnesium (1.6-2.6) mg/dL Total Bilirubin 2.4 H (0.0-1.0) mg/dL Direct Bilirubin 1.7 H (0.0-0.5) mg/dL AST 59 H (5-31) U/L ALT 139 H (0-31) U/L Alkaline Phosphatase 208 H (39-117) U/L Total Protein 3.5 L (6.5-8.0) g/dL Albumin 1.7 L (3.5-5.0) g/dL Lipase 5 L (8-78) U/L Urine Blood (Negative) Ur Leukocyte Esterase (Negative) Urine RBC (0-2) /HPF Urine WBC (0-5) /HPF Crossmatch See Detail 10/19/22 10/19/22 10/19/22 Range/Units 00:34 05:19 05:19 WBC 26.0 H (4.8-10.8) X10*3/uL RBC 3.45 L D (4.20-5.50) X10*6/uL Hgb 10.6 L D (12.0-16.0) g/dl Hct 31.1 L D (37.0-47.0) % RDW 17.4 H (11.0-16.0) % Plt Count 120 L D (160-400) X10*3/uL Absolute Nucleated RBC 0.020 H (0.0-0.012) X10*3/uL Neutrophils % (Manual) 93 H (45-73) % Band Neutrophils % (3-5) % Lymphocytes % (Manual) 1 L (20-40) % Monocytes % (Manual) 1 L (2-11) % Abs Neuts (Manual) 25.5 H (2.0-8.3) X10*3/uL Lymphocytes # (Manual) 0.3 L (1.2-4.9) X10*3/uL Sodium (135-145) mmol/L Potassium 2.6 L (3.3-5.1) mmol/L Chloride 109 H (96-108) mmol/L Carbon Dioxide 14 L (22-29) mmol/L BUN 37 H (9-16) mg/dL Creatinine (0.5-1.4) mg/dL Lactic Acid (0.5-2.0) mmol/L Lactic Acid F/U @ 2Hr (0.5-2.0) mmol/L Lactic Acid F/U @ 4Hr 2.9 H* (0.5-2.0) mmol/L Calcium 7.3 L (8.4-10.2) mg/dL Magnesium 1.5 L (1.6-2.6) mg/dL Total Bilirubin (0.0-1.0) mg/dL Direct Bilirubin (0.0-0.5) mg/dL AST (5-31) U/L ALT (0-31) U/L Alkaline Phosphatase (39-117) U/L Total Protein (6.5-8.0) g/dL Albumin 2.2 L (3.5-5.0) g/dL Lipase (8-78) U/L Urine Blood (Negative) Ur Leukocyte Esterase (Negative) Urine RBC (0-2) /HPF Urine WBC (0-5) /HPF Crossmatch Short CBC 10/18/22 10/19/22 Range/Units 18:31 05:19 WBC 26.8 H 26.0 H (4.8-10.8) X10*3/uL Hgb 7.0 L* D 10.6 L D (12.0-16.0) g/dl Hct 21.0 L* D 31.1 L D (37.0-47.0) % Plt Count 175 D 120 L D (160-400) X10*3/uL BMP 10/18/22 10/19/22 19:37 05:19 Sodium 127 L 135 Potassium 3.2 L 2.6 L Chloride 103 109 H Carbon Dioxide 14 L 14 L BUN 41 H 37 H Creatinine 1.69 H 1.34 Calcium 7.2 L D 7.3 L Liver Function 10/18/22 10/19/22 Range/Units 19:37 05:19 Total Bilirubin 2.4 H (0.0-1.0) mg/dL Direct Bilirubin 1.7 H (0.0-0.5) mg/dL AST 59 H (5-31) U/L ALT 139 H (0-31) U/L Alkaline Phosphatase 208 H (39-117) U/L Albumin 1.7 L 2.2 L (3.5-5.0) g/dL Urine 10/18/22 Range/Units 18:56 Urine Color Dark Yellow Urine Appearance Cloudy Urine pH 5.5 (5.0-9.0) Ur Specific Hartman 1.015 (1.005-1.025) Urine Protein Negative (Neg-Trace) mg/dL Urine Glucose (UA) Negative (Negative) mg/dL All other labs normal. Assessment and Plan (1) ELYSE (acute kidney injury): Status: Acute (2) Sepsis: Status: Acute (3) Hydronephrosis with renal and ureteral calculus obstruction: Status: Acute Plan Risks, benefits and alternatives to therapy were discussed. These include but are not limited to infection, bleeding, damage to local organs and tissues, need for further interventions. Anesthetic risks regarding cardiac arrhythmia, blood clots, and potential mortality were discussed. The patient understands the typical recovery time and the outpatient nature of the procedure. After consideration of these risks the patient gives full informed consent and they wish to move ahead with the procedure. Cystoscopy, right retrograde, right stent placement Procedures Date of Service Date of Service: 10/19/22
[2022-10-19] MEDS: Potassium Chloride/H20 10 MEQ/100 ML PIGGYBACK 100 MEQ IV ×2 (08:44→11:35)
[2022-10-19] MEDS: Magnesium Sulfate/D5W 1 GM/100 ML PIGGYBACK IV (08:46)
[2022-10-19] MEDS: Famotidine/PF 20 MG/2 ML VIAL IVPUSH ×2 (08:47→21:04)
--- NOTE | 2022-10-19 08:59 | PHA.MEDREC ---
Pharmacy Consult ? Medication Reconciliation Pharmacy has completed the medication reconciliation. Patient came from [facility] with medication list. Trish Richard, RamonaD
--- NOTE | 2022-10-19 09:51 | MHC.CM.PN ---
THIS SUPERVISOR STAVE CUTTING MET WITH PATIENT PER REQUEST PATIENT ORIGINALLY WANTED TO ASSIGN A NEW HCP AGENT; HOWEVER, NOW WANTS TO KEEP ELSIE AND JUNI (FOUND IN [facility]) HER AGENTS. COPY PRINTED OUT AND PLACED WITH CHART. PATIENT DOES ASK THAT HER MOTHER, RAMONA ([phone]) BE INFORMED OF HER STATUS IF SHE IS TOO CALL. PATIENT JUST ASKS THAT MOTHER NOT BE TOLD THAT SHE IS NOT THE HCP AGENT. UNIT MADE AWARE. RN (IN ROOM) WAS PRESENT FOR CONVERSATION.
--- NOTE | 2022-10-19 11:53 | HO.ANESPROP2 ---
HPI - Anesthesia Eval Consult details Narrative: Nephrolithiasis, ureter obstruction PMFSH Active Problems Active Problems: All Active Problems (Updated 10/19/22 @ 02:54 by Alyssa Sloan NP) ELYSE (acute kidney injury) (Acute) Hyponatremia (Acute) Hypokalemia (Acute) Anemia (Acute) Sepsis (Acute) Hypotension (Acute) Urinary tract infection (Acute) Hydronephrosis with renal and ureteral calculus obstruction (Acute) Hypoglycemia (Acute) Past Medical History Medical History (Updated 10/19/22 @ 02:54 by Alyssa Sloan NP) Afib Anxiety Arthritis Asthma Bipolar 1 disorder Bronchitis Complications of gastric bypass surgery Hypokalemia Hypotension Migraines PTSD (post-traumatic stress disorder) Functional capacity: wheelchair bound (baseline) Family History Family history of problems with anesthesia: No Surgical History Surgical History H/O: History of cholecystectomy History of Problems with Anesthesia: No Social History Social History Household Members: None Housing: Apartment Do you presently have visiting nurse or other home services: Yes Alcohol intake: never Patient Tobacco Use Status: Former Tobacco user Quit Date: 2018 Tobacco use type: Cigarette Smoked in Last 30 Days: No Use of substances other than those prescribed or required for medical reasons: No Have you been hit, kicked, punched, or otherwise hurt by someone within the past year? If so, by whom?: No Do you feel safe in your current relationship?: No Current Relationship Is there a partner from a previous relationship who is making you feel unsafe now?: No Are you made to feel afraid or neglected: No Advance Directives: No Advance Directives Information Provided: No Do you have thoughts of harming others: None Do you have a plan to hurt others: No Plan Recently lost weight without trying: Yes How much weight loss: Unsure Eating poorly because of decreased appetite: No Nutrition screen score: 4 Patient : No : No Poor oral hygiene: No Meds Allergies Allergy/AdvReac Type Severity Reaction Status Date / Time cephalexin Allergy Swelling Verified 02/07/21 18:19 ciprofloxacin [From Cipro] Allergy Swelling Verified 02/07/21 18:19 coconut oil Allergy Swelling Verified 10/19/22 01:50 duloxetine [From Cymbalta] Allergy Swelling Verified 02/07/21 18:19 Penicillins Allergy Swelling Verified 02/07/21 18:19 Active Medications: Current Medications Famotidine (Famotidine/Pf 20 Mg/2 Ml Vial) 20 mg IVPUSH BID [facility] Last Admin: 10/19/22 08:47 Dose: 20 mg Norepinephrine Bitartrate (Levophed) 8 mg in 250 mls @ 0 mls/hr IVCONT .Q0M [facility]; Protocol Last Titration: 10/19/22 09:52 Dose: 0.3 mcg/kg/min, 28.07 mls/hr Potassium Chloride/Dextrose/Sod Cl (Kcl 40 Meq In 5% Dex/0.45% Sod) 40 meq in 1,000 mls @ 125 mls/hr IVCONT .Q8H [facility] Last Admin: 10/19/22 07:46 Dose: 125 mls/hr Ondansetron HCl (Ondansetron Hcl 4 Mg/2 Ml Vial) 4 mg IVPUSH Q6H PRN PRN Reason: Nausea Last Admin: 10/19/22 02:22 Dose: 4 mg Home Medications Medication Instructions Recorded Confirmed Last Taken Type acetaminophen 325 mg tablet 650 mg PO Q6H PRN Pain 10/19/22 10/19/22 Unknown History albuterol sulfate 90 mcg/actuation 2 puff inhalation Q6H PRN Wheezing 10/19/22 10/19/22 Unknown History aerosol inhaler ascorbic acid (vitamin C) 250 mg 250 mg PO DAILY 10/19/22 10/19/22 Unknown History tablet bacillus coagulans-inulin 1 1 cap PO DAILY 10/19/22 10/19/22 Unknown History billion cell-250 mg capsule (Probiotic Formula (inulin)) calcium carbonate 500 mg calcium 1,000 mg PO BID 10/19/22 10/19/22 Unknown History (1,250 mg) chewable tablet cholecalciferol (vitamin D3) 1,250 1,250 mcg PO WE 10/19/22 10/19/22 Unknown History mcg (50,000 unit) tablet clonazepam 1 mg tablet 1 mg PO TID 10/19/22 10/19/22 Unknown History cyanocobalamin (vitamin B-12) 500 500 mcg PO DAILY 10/19/22 10/19/22 Unknown History mcg tablet fluoxetine 20 mg tablet 20 mg PO DAILY 10/19/22 10/19/22 Unknown History fluticasone 500 mcg-salmeterol 50 1 inh inhalation BID 10/19/22 10/19/22 Unknown History mcg/dose blistr powdr for inhalation (Wix[facility] Inhub) fluticasone propionate 50 1 spray intranasal DAILY 10/19/22 10/19/22 Unknown History mcg/actuation nasal spray,suspension lamotrigine 150 mg tablet 150 mg PO BID 10/19/22 10/19/22 Unknown History midodrine 5 mg tablet 5 mg PO TID 10/19/22 10/19/22 Unknown History olanzapine 2.5 mg tablet (Zyprexa) 2.5 mg PO BEDTIME PRN Anxiety 10/19/22 10/19/22 Unknown History omeprazole 40 mg capsule,delayed 40 mg PO DAILY 10/19/22 10/19/22 Unknown History release ondansetron HCl 4 mg tablet 4 mg PO Q8H PRN Nausea 10/19/22 10/19/22 Unknown History risperidone 1 mg tablet (Risperdal) 1 mg PO DAILY 10/19/22 10/19/22 Unknown History risperidone 2 mg tablet 2 mg PO BEDTIME 10/19/22 10/19/22 Unknown History rivaroxaban 20 mg tablet (Xarelto) 20 mg PO DAILY@1700 10/19/22 10/19/22 Unknown History sucralfate 100 mg/mL oral 10 ml PO QID 10/19/22 10/19/22 Unknown History suspension thiamine HCl (vitamin B1) 100 mg 100 mg PO DAILY 10/19/22 10/19/22 Unknown History tablet topiramate 25 mg tablet 25 mg PO DAILY 10/19/22 10/19/22 Unknown History topiramate 25 mg tablet 75 mg PO BEDTIME 10/19/22 10/19/22 Unknown History Exam Exam Date and Time: October 19, 2022 1153 Height,Weight and Vital Signs: Height 4 ft 11 in Weight 57.1 kg Last Vital Signs Temp 98.2 F 10/19/22 11:00 Pulse 115 H 10/19/22 11:00 Resp 20 10/19/22 11:00 BP 91/52 L 10/19/22 11:00 Pulse Ox 96 10/19/22 11:00 O2 Del Method 10/19/22 11:00 Pertinent Lab Results Pertinent Lab Results: Laboratory Tests 10/18/22 10/18/22 10/18/22 18:31 18:31 18:31 WBC 26.8 H RBC 2.24 L D Hgb 7.0 L* D Hct 21.0 L* D MCV 93.8 MCH 31.3 MCHC 33.3 RDW 20.3 H Plt Count 175 D MPV 10.5 Immature Gran % (Auto) Cancelled Neut % (Auto) Cancelled Lymph % (Auto) Cancelled [place] % (Auto) Cancelled Eos % (Auto) Cancelled Baso % (Auto) Cancelled Lymph # (Auto) Cancelled [place] # (Auto) Cancelled Eos # (Auto) Cancelled Baso # (Auto) Cancelled Abs Immat Gran (auto) Cancelled Absolute Neuts (auto) Cancelled Absolute Nucleated RBC 0.020 H Nucleated RBC % (auto) 0.1 Neutrophils % (Manual) 80 H Band Neutrophils % 6 H Lymphocytes % (Manual) 9 L Monocytes % (Manual) 4 Metamyelocytes % 1 Abs Neuts (Manual) 23.0 H Lymphocytes # (Manual) 2.4 Monocytes # (Manual) 1.1 Metamyelocytes # 0.3 Smudge Cells PRESENT Toxic Granulation PRESENT Toxic Vacuolation PRESENT Dohle Bodies PRESENT Platelet Estimate SLIGHTLY DECREASED Plt Morphology Comment NORMAL RBC Morphology NOTED Polychromasia 1+ (0-2) Hypochromasia 1+ (5-14) Basophilic Stippling Microcytosis 1+ (5-14) Macrocytosis 1+ (5-14) Spherocytes Tenisha Cells 3+ (>5) Acanthocytes (Spur) Schistocytes 2+ (3-5) Sodium Potassium Chloride Carbon Dioxide Anion Gap BUN Creatinine Estim Creat Clear Calc Estimated GFR POC Glucose Random Glucose Lactic Acid 3.7 H* Lactic Acid F/U @ 2Hr Lactic Acid F/U @ 4Hr Calcium Phosphorus Magnesium Total Bilirubin Direct Bilirubin AST ALT Alkaline Phosphatase Troponin I High Sens < 3.5 Total Protein Albumin Lipase Urine Color Urine Appearance Urine pH Ur Specific [place] Urine Protein Urine Glucose (UA) Urine Ketones Urine Blood Urine Nitrite Ur Leukocyte Esterase Urine RBC Urine WBC Ur Squamous Epith Cells Urine Bacteria Hyaline Casts Stool Occult Blood Urine Opiates Screen Urine Fentanyl Screen Ur Barbiturates Screen Ur Phencyclidine Scrn Ur Amphetamines Screen U Benzodiazepines Scrn Urine Cocaine Screen U Marijuana (THC) Screen Influenza Type A (PCR) Influenza Type B (PCR) RSV RNA Qual (PCR) SARS-CoV-2 RNA (RT-PCR) Blood Type Antibody Screen Crossmatch 10/18/22 10/18/22 10/18/22 18:31 18:56 18:56 WBC RBC Hgb Hct MCV MCH MCHC RDW Plt Count MPV Immature Gran % (Auto) Neut % (Auto) Lymph % (Auto) [place] % (Auto) Eos % (Auto) Baso % (Auto) Lymph # (Auto) [place] # (Auto) Eos # (Auto) Baso # (Auto) Abs Immat Gran (auto) Absolute Neuts (auto) Absolute Nucleated RBC Nucleated RBC % (auto) Neutrophils % (Manual) Band Neutrophils % Lymphocytes % (Manual) Monocytes % (Manual) Metamyelocytes % Abs Neuts (Manual) Lymphocytes # (Manual) Monocytes # (Manual) Metamyelocytes # Smudge Cells Toxic Granulation Toxic Vacuolation Dohle Bodies Platelet Estimate Plt Morphology Comment RBC Morphology Polychromasia Hypochromasia Basophilic Stippling Microcytosis Macrocytosis Spherocytes Tenisha Cells Acanthocytes (Spur) Schistocytes Sodium Potassium Chloride Carbon Dioxide Anion Gap BUN Creatinine Estim Creat Clear Calc Estimated GFR POC Glucose Random Glucose Lactic Acid Lactic Acid F/U @ 2Hr Lactic Acid F/U @ 4Hr Calcium Phosphorus Magnesium Total Bilirubin Direct Bilirubin AST ALT Alkaline Phosphatase Troponin I High Sens Total Protein Albumin Lipase Urine Color Dark Yellow Urine Appearance Cloudy Urine pH 5.5 Ur Specific [place] 1.015 Urine Protein Negative Urine Glucose (UA) Negative Urine Ketones Negative Urine Blood Moderate (2+) H Urine Nitrite Negative Ur Leukocyte Esterase Large (3+) H Urine RBC 6-10 H Urine WBC 21-50 H Ur Squamous Epith Cells 11-20 Urine Bacteria 4+ Hyaline Casts 0-2 Stool Occult Blood Urine Opiates Screen Not Detected Urine Fentanyl Screen Not Detected Ur Barbiturates Screen Not Detected Ur Phencyclidine Scrn Not Detected Ur Amphetamines Screen Not Detected U Benzodiazepines Scrn Not Detected Urine Cocaine Screen Not Detected U Marijuana (THC) Screen Not Detected Influenza Type A (PCR) NEGATIVE Influenza Type B (PCR) NEGATIVE RSV RNA Qual (PCR) NEGATIVE SARS-CoV-2 RNA (RT-PCR) NEGATIVE Blood Type Antibody Screen Crossmatch 10/18/22 10/18/22 10/18/22 19:37 19:37 20:51 WBC RBC Hgb Hct MCV MCH MCHC RDW Plt Count MPV Immature Gran % (Auto) Neut % (Auto) Lymph % (Auto) [place] % (Auto) Eos % (Auto) Baso % (Auto) Lymph # (Auto) [place] # (Auto) Eos # (Auto) Baso # (Auto) Abs Immat Gran (auto) Absolute Neuts (auto) Absolute Nucleated RBC Nucleated RBC % (auto) Neutrophils % (Manual) Band Neutrophils % Lymphocytes % (Manual) Monocytes % (Manual) Metamyelocytes % Abs Neuts (Manual) Lymphocytes # (Manual) Monocytes # (Manual) Metamyelocytes # Smudge Cells Toxic Granulation Toxic Vacuolation Dohle Bodies Platelet Estimate Plt Morphology Comment RBC Morphology Polychromasia Hypochromasia Basophilic Stippling Microcytosis Macrocytosis Spherocytes [place] Cells Acanthocytes (Spur) Schistocytes Sodium 127 L Potassium 3.2 L Chloride 103 Carbon Dioxide 14 L Anion Gap 13 BUN 41 H Creatinine 1.69 H Estim Creat Clear Calc 19.9 Estimated GFR 32 POC Glucose Random Glucose 84 Lactic Acid Lactic Acid F/U @ 2Hr 3.0 H* Lactic Acid F/U @ 4Hr Calcium 7.2 L D Phosphorus Magnesium 1.7 Total Bilirubin 2.4 H Direct Bilirubin 1.7 H AST 59 H ALT 139 H Alkaline Phosphatase 208 H Troponin I High Sens Total Protein 3.5 L Albumin 1.7 L Lipase 5 L Urine Color Urine Appearance Urine pH Ur Specific [place] Urine Protein Urine Glucose (UA) Urine Ketones Urine Blood Urine Nitrite Ur Leukocyte Esterase Urine RBC Urine WBC Ur Squamous Epith Cells Urine Bacteria Hyaline Casts Stool Occult Blood Urine Opiates Screen Urine Fentanyl Screen Ur Barbiturates Screen Ur Phencyclidine Scrn Ur Amphetamines Screen U Benzodiazepines Scrn Urine Cocaine Screen U Marijuana (THC) Screen Influenza Type A (PCR) Influenza Type B (PCR) RSV RNA Qual (PCR) SARS-CoV-2 RNA (RT-PCR) Blood Type O Positive Antibody Screen NEGATIVE Crossmatch See Detail 10/18/22 10/19/22 10/19/22 21:35 00:34 00:46 WBC RBC Hgb Hct MCV MCH MCHC RDW Plt Count MPV Immature Gran % (Auto) Neut % (Auto) Lymph % (Auto) [place] % (Auto) Eos % (Auto) Baso % (Auto) Lymph # (Auto) [place] # (Auto) Eos # (Auto) Baso # (Auto) Abs Immat Gran (auto) Absolute Neuts (auto) Absolute Nucleated RBC Nucleated RBC % (auto) Neutrophils % (Manual) Band Neutrophils % Lymphocytes % (Manual) Monocytes % (Manual) Metamyelocytes % Abs Neuts (Manual) Lymphocytes # (Manual) Monocytes # (Manual) Metamyelocytes # Smudge Cells Toxic Granulation Toxic Vacuolation Dohle Bodies Platelet Estimate Plt Morphology Comment RBC Morphology Polychromasia Hypochromasia Basophilic Stippling Microcytosis Macrocytosis Spherocytes Tenisha Cells Acanthocytes (Spur) Schistocytes Sodium Potassium Chloride Carbon Dioxide Anion Gap BUN Creatinine Estim Creat Clear Calc Estimated GFR POC Glucose 61 Random Glucose Lactic Acid Lactic Acid F/U @ 2Hr Lactic Acid F/U @ 4Hr 2.9 H* Calcium Phosphorus Magnesium Total Bilirubin Direct Bilirubin AST ALT Alkaline Phosphatase Troponin I High Sens Total Protein Albumin Lipase Urine Color Urine Appearance Urine pH Ur Specific [place] Urine Protein Urine Glucose (UA) Urine Ketones Urine Blood Urine Nitrite Ur Leukocyte Esterase Urine RBC Urine WBC Ur Squamous Epith Cells Urine Bacteria Hyaline Casts Stool Occult Blood POSITIVE Urine Opiates Screen Urine Fentanyl Screen Ur Barbiturates Screen Ur Phencyclidine Scrn Ur Amphetamines Screen U Benzodiazepines Scrn Urine Cocaine Screen U Marijuana (THC) Screen Influenza Type A (PCR) Influenza Type B (PCR) RSV RNA Qual (PCR) SARS-CoV-2 RNA (RT-PCR) Blood Type Antibody Screen Crossmatch 10/19/22 10/19/22 10/19/22 04:42 05:19 05:19 WBC 26.0 H RBC 3.45 L D Hgb 10.6 L D Hct 31.1 L D MCV 90.1 MCH 30.7 MCHC 34.1 RDW 17.4 H Plt Count 120 L D MPV 10.3 Immature Gran % (Auto) Cancelled Neut % (Auto) Cancelled Lymph % (Auto) Cancelled [place] % (Auto) Cancelled Eos % (Auto) Cancelled Baso % (Auto) Cancelled Lymph # (Auto) Cancelled [place] # (Auto) Cancelled Eos # (Auto) Cancelled Baso # (Auto) Cancelled Abs Immat Gran (auto) Cancelled Absolute Neuts (auto) Cancelled Absolute Nucleated RBC 0.020 H Nucleated RBC % (auto) 0.1 Neutrophils % (Manual) 93 H Band Neutrophils % 5 Lymphocytes % (Manual) 1 L Monocytes % (Manual) 1 L Metamyelocytes % Abs Neuts (Manual) 25.5 H Lymphocytes # (Manual) 0.3 L Monocytes # (Manual) 0.3 Metamyelocytes # Smudge Cells Toxic Granulation Toxic Vacuolation PRESENT Dohle Bodies PRESENT Platelet Estimate NORMAL Plt Morphology Comment NORMAL RBC Morphology NOTED Polychromasia 1+ (0-2) Hypochromasia Basophilic Stippling 1+ (0-2) Microcytosis Macrocytosis Spherocytes 1+ (0-2) [place] Cells 2+ (3-5) Acanthocytes (Spur) 2+ (3-5) Schistocytes 1+ (0-2) Sodium 135 Potassium 2.6 L Chloride 109 H Carbon Dioxide 14 L Anion Gap 15 BUN 37 H Creatinine 1.34 Estim Creat Clear Calc 37.0 Estimated GFR 42 POC Glucose 77 Random Glucose 71 Lactic Acid Lactic Acid F/U @ 2Hr Lactic Acid F/U @ 4Hr Calcium 7.3 L Phosphorus 3.2 Magnesium 1.5 L Total Bilirubin Direct Bilirubin AST ALT Alkaline Phosphatase Troponin I High Sens Total Protein Albumin 2.2 L Lipase Urine Color Urine Appearance Urine pH Ur Specific [place] Urine Protein Urine Glucose (UA) Urine Ketones Urine Blood Urine Nitrite Ur Leukocyte Esterase Urine RBC Urine WBC Ur Squamous Epith Cells Urine Bacteria Hyaline Casts Stool Occult Blood Urine Opiates Screen Urine Fentanyl Screen Ur Barbiturates Screen Ur Phencyclidine Scrn Ur Amphetamines Screen U Benzodiazepines Scrn Urine Cocaine Screen U Marijuana (THC) Screen Influenza Type A (PCR) Influenza Type B (PCR) RSV RNA Qual (PCR) SARS-CoV-2 RNA (RT-PCR) Blood Type Antibody Screen Crossmatch Airway Mallampati Class: II TM Dist: >3cm Neck ROM: Full Loose/Missing/Broken Teeth: No Heart: RRR Lungs: CTA Assessment and Plan Assessment Anesthesia Assessment: Anesthesia Plan Discussed and Chart Reviewed Final Anesthetic Review Family History of Problems with Anesthesia: No History of Problems with Anesthesia: No NPO: Yes ASA Class: III and Emergency Final Preanesthetic Review: No Changes in Pt Med Stat, Meds/Allgs Chart Reviewed and Consent Obtained/Reviewed Patient Risk: Intermediate Procedure Risk: Low Anesthetic Plan Anesthetic Plan: MAC: Disposition: Inp. Admit - ICU
--- NOTE | 2022-10-19 12:52 | MHC.SHP ---
Pre-Procedural Eval Section A Date of Service: 10/19/22 The patient is an INPATIENT: Yes Changes since office visit: No Cold of Flu in the past 2 weeks, No New Medical Problems, No Changes in Medication and No Patient answered all questions The History & Physical has been completed within 30 days and I have reviewed it.: Yes Section B Chief Complaint: urosepsis Details of Present Illness: Obstructing right ureteric stone with urosepsis Relevant Family History (Specify if Yes): No Relevant Social History: None Present Medications: see Short Stay Collaborative assessment Medical History: Significant History History of Previous Operations: No relevant previous surgery Allergies: Allergies Allergy/AdvReac Type Severity Reaction Status Date / Time cephalexin Allergy Swelling Verified 02/07/21 18:19 ciprofloxacin [From Cipro] Allergy Swelling Verified 02/07/21 18:19 coconut oil Allergy Swelling Verified 10/19/22 01:50 duloxetine [From Cymbalta] Allergy Swelling Verified 02/07/21 18:19 Penicillins Allergy Swelling Verified 02/07/21 18:19 Review of Systems Sugical H&P ROS: Negative: Constitution, Cardiovascular, Respiratory, Neurological, Psychiatric, Hem-Onc, Allergic/Immunologic, Gastrointestinal, Genitourinary, Musculoskeletal, Integumentary, Endocrine and Eyes/Ears/Nose/Throat Exam Surgical H&P Exam: Normal: HEENT, Normal: Heart, Normal: Lungs, Normal: Extremities, Normal: Abdomen, Normal: Skin and Normal: Neurological Plan Diagnosis/Plan: Unchanged (Cysto, right retrograde, right stent placement with aspiration right kidney) I have reviewed the history and physical and performed a pertinent physical examination on my patient. No changes have occurred unless specified.
--- NOTE | 2022-10-19 12:53 | P.OP_ITS ---
Operative Note Operative Note Date of Service: 10/19/22 Narrative: PreOperative Diagnosis: Obstructing right ureteric stone with urosepsis Post Operative Diagnosis: See above Procedure: Cystoscopy, right retrograde, right renal aspiration, right stent placement Surgeon: Dr Jose Alberto Gomez Anesthesia: LMA Indications for procedure: 51-year-old female presents with urosepsis. On pressure support in ICU. Imaging shows proximal right ureteric stone with hydronephrosis. White count 26. Height 4'11 . Is known to Dr. Galaviz [facility] for stone formation. Has history of recurrent UTIs. Procedure: After informed consent was verified the patient was brought to the operating room and placed in a supine position. Anesthesia was administered per protocol. The patient was placed in modified dorsal lithotomy position and prepped and draped in a sterile fashion. A safety pause time-out was performed. Laterality of procedure and antibiotics were confirmed, appropriate imaging was available A 22 [place] cystoscope was introduced per urethra. No abnormality was noted of urethra or bladder. Both ureteric orifices were seen in a normal position. The right ureter was cannulated with an open ended catheter and a retrograde examination was performed. Filling defects seen in proximal right ureter. Mild hydronephrosis. . A Sensor guidewire was placed under fluoroscopy and a good coil was seen within the renal pelvis. The open-ended catheter was advanced into the renal pelvis. The renal pelvis was aspirated and will be sent for microbiology. A 6 [place] by 24 cm double J stent was advanced over the wire and up to the level of the renal pelvis under fluoroscopic and direct visualization. The stent was seen with appropriate coil within the renal pelvis and in the bladder after deployment. The patient tolerated the procedure well and was transferred in a stable condition to the recovery area. Pathology: Right renal aspiration for microbiology Drains: 6 [place] by 24 cm double-J stent
[2022-10-19 14:03] LABS: Glucose, Whole Blood 82 mg/dL (60-115)
[2022-10-19 14:52] LABS: Blood Urea Nitrogen 34 mg/dL (9-16); Calcium 7.4 mg/dL (8.4-10.2); Creatinine Clr Calc Pharmacy 47.4; Estimated Glomerular Filt Rate 53; Glucose Random 102 mg/dL (60-115)
[2022-10-19] MEDS: clonazePAM 1 MG TABLET PO (14:55)
[2022-10-19 14:57] LABS: Hematocrit 33.4 % (37.0-47.0); NRBC Pct Auto 0.1 /100WBC (0.0-0.2); Red Blood Count 3.67 X10*6/uL (4.20-5.50)
[2022-10-19] MEDS: Albuterol/Iprat 2.5/0.5MG 3 ML AMPUL.NEB INHALE (14:57)
[2022-10-19 14:59] LABS: Anion Gap 15 (12-20); Carbon Dioxide 12 mmol/L (22-29); Chloride 112 mmol/L (96-108); Potassium 3.5 mmol/L (3.3-5.1); Sodium 135 mmol/L (135-145)
[2022-10-19 15:08] LABS: Hemoglobin 11.3 g/dl (12.0-16.0); Mean Corpuscular HGB Conc 33.8 g/dl (31.0-35.0); Mean Corpuscular Hemoglobin 30.8 pg (27.0-33.0); Red Cell Distribution Width 18.1 % (11.0-16.0)
--- NOTE | 2022-10-19 15:14 | P.PNCC_ITS ---
Subjective Subjective Date of Service: 10/19/22 Interval History: 51-year-old female presented here with hypotension and was not only noted to have a markedly positive urinalysis consistent with urinary tract infection but 2/2 blood cultures growing gram-negative rods and on CT scan of the abdomen was noted to have a right-sided hydronephrosis from an obstructing stone in the ureter and today underwent stone extraction with stent placement in that in that ureter and has received now 2 doses of Levaquin and then 1 dose of meropenem without any ill effect but still remains dependent upon Levophed to keep her mean arterial pressures at 65 or greater and remains in a sinus tachycardia with rates in the 120s no acute ST-T changes and bedside echo showing hyperdynamic left ventricle globally normal systolic wall motion no primary valve or pericardial disease Background history of paroxysmal atrial fibrillation for which she takes Xarelto and also background of asthmatic bronchitis and skin and a bipolar disorder and we have slowly reinstated some of her medications thus far the Topamax as well as the lamotrigine and of course were maintaining her benzodiazepine and after the full 30 cc/kilos of fluid load plus the IV maintenance she still had a CVP measured at about 5 so we are able to give her yet another bolus and he no given the fact that the inferior vena cava was still relatively flat we increased her fluid rate and in addition are repleting her severe severely decreased magnesium and potassium Critical Care Time (minutes): 60 Physical Exam Vital Signs: Vital Signs: Last Vital Signs Temp 98.2 F 10/19/22 11:00 Pulse 108 H 10/19/22 14:58 Resp 31 H 10/19/22 14:58 BP 86/54 L 10/19/22 14:00 Pulse Ox 92 10/19/22 14:00 O2 Del Method 10/19/22 14:00 BMI result Body Mass Index 25.4 Alert oriented and nonfocal Sinus mechanism with hyperdynamic left ventricle continued low CVP so fluid is aggressive Abdomen is soft good bowel sounds no organomegaly Chest without diaphragmatic effort no adventitious sounds Objective Data Labs CBC & Chem 7: 10/19/22 05:19 10/19/22 14:30 Labs: Laboratory Results - last 24 hr 10/18/22 10/18/22 10/18/22 18:31 18:31 18:31 WBC 26.8 H RBC 2.24 L D Hgb 7.0 L* D Hct 21.0 L* D MCV 93.8 MCH 31.3 MCHC 33.3 RDW 20.3 H Plt Count 175 D MPV 10.5 Immature Gran % (Auto) Cancelled Neut % (Auto) Cancelled Lymph % (Auto) Cancelled [place] % (Auto) Cancelled Eos % (Auto) Cancelled Baso % (Auto) Cancelled Lymph # (Auto) Cancelled [place] # (Auto) Cancelled Eos # (Auto) Cancelled Baso # (Auto) Cancelled Abs Immat Gran (auto) Cancelled Absolute Neuts (auto) Cancelled Absolute Nucleated RBC 0.020 H Nucleated RBC % (auto) 0.1 Neutrophils % (Manual) 80 H Band Neutrophils % 6 H Lymphocytes % (Manual) 9 L Monocytes % (Manual) 4 Metamyelocytes % 1 Abs Neuts (Manual) 23.0 H Lymphocytes # (Manual) 2.4 Monocytes # (Manual) 1.1 Metamyelocytes # 0.3 Smudge Cells PRESENT Toxic Granulation PRESENT Toxic Vacuolation PRESENT Dohle Bodies PRESENT Platelet Estimate SLIGHTLY DECREASED Plt Morphology Comment NORMAL RBC Morphology NOTED Polychromasia 1+ (0-2) Hypochromasia 1+ (5-14) Basophilic Stippling Microcytosis 1+ (5-14) Macrocytosis 1+ (5-14) Spherocytes Tenisha Cells 3+ (>5) Acanthocytes (Spur) Schistocytes 2+ (3-5) Sodium Potassium Chloride Carbon Dioxide Anion Gap BUN Creatinine Estim Creat Clear Calc Estimated GFR POC Glucose Random Glucose Lactic Acid 3.7 H* Lactic Acid F/U @ 2Hr Lactic Acid F/U @ 4Hr Calcium Phosphorus Magnesium Total Bilirubin Direct Bilirubin AST ALT Alkaline Phosphatase Troponin I High Sens < 3.5 Total Protein Albumin Lipase Urine Color Urine Appearance Urine pH Ur Specific [place] Urine Protein Urine Glucose (UA) Urine Ketones Urine Blood Urine Nitrite Ur Leukocyte Esterase Urine RBC Urine WBC Ur Squamous Epith Cells Urine Bacteria Hyaline Casts Stool Occult Blood Urine Opiates Screen Urine Fentanyl Screen Ur Barbiturates Screen Ur Phencyclidine Scrn Ur Amphetamines Screen U Benzodiazepines Scrn Urine Cocaine Screen U Marijuana (THC) Screen Influenza Type A (PCR) Influenza Type B (PCR) RSV RNA Qual (PCR) SARS-CoV-2 RNA (RT-PCR) Blood Type Antibody Screen Crossmatch 10/18/22 10/18/22 10/18/22 18:31 18:56 18:56 WBC RBC Hgb Hct MCV MCH MCHC RDW Plt Count MPV Immature Gran % (Auto) Neut % (Auto) Lymph % (Auto) [place] % (Auto) Eos % (Auto) Baso % (Auto) Lymph # (Auto) [place] # (Auto) Eos # (Auto) Baso # (Auto) Abs Immat Gran (auto) Absolute Neuts (auto) Absolute Nucleated RBC Nucleated RBC % (auto) Neutrophils % (Manual) Band Neutrophils % Lymphocytes % (Manual) Monocytes % (Manual) Metamyelocytes % Abs Neuts (Manual) Lymphocytes # (Manual) Monocytes # (Manual) Metamyelocytes # Smudge Cells Toxic Granulation Toxic Vacuolation Dohle Bodies Platelet Estimate Plt Morphology Comment RBC Morphology Polychromasia Hypochromasia Basophilic Stippling Microcytosis Macrocytosis Spherocytes Tenisha Cells Acanthocytes (Spur) Schistocytes Sodium Potassium Chloride Carbon Dioxide Anion Gap BUN Creatinine Estim Creat Clear Calc Estimated GFR POC Glucose Random Glucose Lactic Acid Lactic Acid F/U @ 2Hr Lactic Acid F/U @ 4Hr Calcium Phosphorus Magnesium Total Bilirubin Direct Bilirubin AST ALT Alkaline Phosphatase Troponin I High Sens Total Protein Albumin Lipase Urine Color Dark Yellow Urine Appearance Cloudy Urine pH 5.5 Ur Specific [place] 1.015 Urine Protein Negative Urine Glucose (UA) Negative Urine Ketones Negative Urine Blood Moderate (2+) H Urine Nitrite Negative Ur Leukocyte Esterase Large (3+) H Urine RBC 6-10 H Urine WBC 21-50 H Ur Squamous Epith Cells 11-20 Urine Bacteria 4+ Hyaline Casts 0-2 Stool Occult Blood Urine Opiates Screen Not Detected Urine Fentanyl Screen Not Detected Ur Barbiturates Screen Not Detected Ur Phencyclidine Scrn Not Detected Ur Amphetamines Screen Not Detected U Benzodiazepines Scrn Not Detected Urine Cocaine Screen Not Detected U Marijuana (THC) Screen Not Detected Influenza Type A (PCR) NEGATIVE Influenza Type B (PCR) NEGATIVE RSV RNA Qual (PCR) NEGATIVE SARS-CoV-2 RNA (RT-PCR) NEGATIVE Blood Type Antibody Screen Crossmatch 10/18/22 10/18/22 10/18/22 19:37 19:37 20:51 WBC RBC Hgb Hct MCV MCH MCHC RDW Plt Count MPV Immature Gran % (Auto) Neut % (Auto) Lymph % (Auto) [place] % (Auto) Eos % (Auto) Baso % (Auto) Lymph # (Auto) [place] # (Auto) Eos # (Auto) Baso # (Auto) Abs Immat Gran (auto) Absolute Neuts (auto) Absolute Nucleated RBC Nucleated RBC % (auto) Neutrophils % (Manual) Band Neutrophils % Lymphocytes % (Manual) Monocytes % (Manual) Metamyelocytes % Abs Neuts (Manual) Lymphocytes # (Manual) Monocytes # (Manual) Metamyelocytes # Smudge Cells Toxic Granulation Toxic Vacuolation Dohle Bodies Platelet Estimate Plt Morphology Comment RBC Morphology Polychromasia Hypochromasia Basophilic Stippling Microcytosis Macrocytosis Spherocytes Tenisha Cells Acanthocytes (Spur) Schistocytes Sodium 127 L Potassium 3.2 L Chloride 103 Carbon Dioxide 14 L Anion Gap 13 BUN 41 H Creatinine 1.69 H Estim Creat Clear Calc 19.9 Estimated GFR 32 POC Glucose Random Glucose 84 Lactic Acid Lactic Acid F/U @ 2Hr 3.0 H* Lactic Acid F/U @ 4Hr Calcium 7.2 L D Phosphorus Magnesium 1.7 Total Bilirubin 2.4 H Direct Bilirubin 1.7 H AST 59 H ALT 139 H Alkaline Phosphatase 208 H Troponin I High Sens Total Protein 3.5 L Albumin 1.7 L Lipase 5 L Urine Color Urine Appearance Urine pH Ur Specific [place] Urine Protein Urine Glucose (UA) Urine Ketones Urine Blood Urine Nitrite Ur Leukocyte Esterase Urine RBC Urine WBC Ur Squamous Epith Cells Urine Bacteria Hyaline Casts Stool Occult Blood Urine Opiates Screen Urine Fentanyl Screen Ur Barbiturates Screen Ur Phencyclidine Scrn Ur Amphetamines Screen U Benzodiazepines Scrn Urine Cocaine Screen U Marijuana (THC) Screen Influenza Type A (PCR) Influenza Type B (PCR) RSV RNA Qual (PCR) SARS-CoV-2 RNA (RT-PCR) Blood Type O Positive Antibody Screen NEGATIVE Crossmatch See Detail 10/18/22 10/19/22 10/19/22 21:35 00:34 00:46 WBC RBC Hgb Hct MCV MCH MCHC RDW Plt Count MPV Immature Gran % (Auto) Neut % (Auto) Lymph % (Auto) [place] % (Auto) Eos % (Auto) Baso % (Auto) Lymph # (Auto) [place] # (Auto) Eos # (Auto) Baso # (Auto) Abs Immat Gran (auto) Absolute Neuts (auto) Absolute Nucleated RBC Nucleated RBC % (auto) Neutrophils % (Manual) Band Neutrophils % Lymphocytes % (Manual) Monocytes % (Manual) Metamyelocytes % Abs Neuts (Manual) Lymphocytes # (Manual) Monocytes # (Manual) Metamyelocytes # Smudge Cells Toxic Granulation Toxic Vacuolation Dohle Bodies Platelet Estimate Plt Morphology Comment RBC Morphology Polychromasia Hypochromasia Basophilic Stippling Microcytosis Macrocytosis Spherocytes Tenisha Cells Acanthocytes (Spur) Schistocytes Sodium Potassium Chloride Carbon Dioxide Anion Gap BUN Creatinine Estim Creat Clear Calc Estimated GFR POC Glucose 61 Random Glucose Lactic Acid Lactic Acid F/U @ 2Hr Lactic Acid F/U @ 4Hr 2.9 H* Calcium Phosphorus Magnesium Total Bilirubin Direct Bilirubin AST ALT Alkaline Phosphatase Troponin I High Sens Total Protein Albumin Lipase Urine Color Urine Appearance Urine pH Ur Specific [place] Urine Protein Urine Glucose (UA) Urine Ketones Urine Blood Urine Nitrite Ur Leukocyte Esterase Urine RBC Urine WBC Ur Squamous Epith Cells Urine Bacteria Hyaline Casts Stool Occult Blood POSITIVE Urine Opiates Screen Urine Fentanyl Screen Ur Barbiturates Screen Ur Phencyclidine Scrn Ur Amphetamines Screen U Benzodiazepines Scrn Urine Cocaine Screen U Marijuana (THC) Screen Influenza Type A (PCR) Influenza Type B (PCR) RSV RNA Qual (PCR) SARS-CoV-2 RNA (RT-PCR) Blood Type Antibody Screen Crossmatch 10/19/22 10/19/22 10/19/22 04:42 05:19 05:19 WBC 26.0 H RBC 3.45 L D Hgb 10.6 L D Hct 31.1 L D MCV 90.1 MCH 30.7 MCHC 34.1 RDW 17.4 H Plt Count 120 L D MPV 10.3 Immature Gran % (Auto) Cancelled Neut % (Auto) Cancelled Lymph % (Auto) Cancelled [place] % (Auto) Cancelled Eos % (Auto) Cancelled Baso % (Auto) Cancelled Lymph # (Auto) Cancelled [place] # (Auto) Cancelled Eos # (Auto) Cancelled Baso # (Auto) Cancelled Abs Immat Gran (auto) Cancelled Absolute Neuts (auto) Cancelled Absolute Nucleated RBC 0.020 H Nucleated RBC % (auto) 0.1 Neutrophils % (Manual) 93 H Band Neutrophils % 5 Lymphocytes % (Manual) 1 L Monocytes % (Manual) 1 L Metamyelocytes % Abs Neuts (Manual) 25.5 H Lymphocytes # (Manual) 0.3 L Monocytes # (Manual) 0.3 Metamyelocytes # Smudge Cells Toxic Granulation Toxic Vacuolation PRESENT Dohle Bodies PRESENT Platelet Estimate NORMAL Plt Morphology Comment NORMAL RBC Morphology NOTED Polychromasia 1+ (0-2) Hypochromasia Basophilic Stippling 1+ (0-2) Microcytosis Macrocytosis Spherocytes 1+ (0-2) Tenisha Cells 2+ (3-5) Acanthocytes (Spur) 2+ (3-5) Schistocytes 1+ (0-2) Sodium 135 Potassium 2.6 L Chloride 109 H Carbon Dioxide 14 L Anion Gap 15 BUN 37 H Creatinine 1.34 Estim Creat Clear Calc 37.0 Estimated GFR 42 POC Glucose 77 Random Glucose 71 Lactic Acid Lactic Acid F/U @ 2Hr Lactic Acid F/U @ 4Hr Calcium 7.3 L Phosphorus 3.2 Magnesium 1.5 L Total Bilirubin Direct Bilirubin AST ALT Alkaline Phosphatase Troponin I High Sens Total Protein Albumin 2.2 L Lipase Urine Color Urine Appearance Urine pH Ur Specific [place] Urine Protein Urine Glucose (UA) Urine Ketones Urine Blood Urine Nitrite Ur Leukocyte Esterase Urine RBC Urine WBC Ur Squamous Epith Cells Urine Bacteria Hyaline Casts Stool Occult Blood Urine Opiates Screen Urine Fentanyl Screen Ur Barbiturates Screen Ur Phencyclidine Scrn Ur Amphetamines Screen U Benzodiazepines Scrn Urine Cocaine Screen U Marijuana (THC) Screen Influenza Type A (PCR) Influenza Type B (PCR) RSV RNA Qual (PCR) SARS-CoV-2 RNA (RT-PCR) Blood Type Antibody Screen Crossmatch 10/19/22 10/19/22 13:57 14:30 WBC RBC Hgb Hct MCV MCH MCHC RDW Plt Count MPV Immature Gran % (Auto) Neut % (Auto) Lymph % (Auto) [place] % (Auto) Eos % (Auto) Baso % (Auto) Lymph # (Auto) [place] # (Auto) Eos # (Auto) Baso # (Auto) Abs Immat Gran (auto) Absolute Neuts (auto) Absolute Nucleated RBC Nucleated RBC % (auto) Neutrophils % (Manual) Band Neutrophils % Lymphocytes % (Manual) Monocytes % (Manual) Metamyelocytes % Abs Neuts (Manual) Lymphocytes # (Manual) Monocytes # (Manual) Metamyelocytes # Smudge Cells Toxic Granulation Toxic Vacuolation Dohle Bodies Platelet Estimate Plt Morphology Comment RBC Morphology Polychromasia Hypochromasia Basophilic Stippling Microcytosis Macrocytosis Spherocytes [place] Cells Acanthocytes (Spur) Schistocytes Sodium 135 Potassium 3.5 D Chloride 112 H Carbon Dioxide 12 L Anion Gap 15 BUN 34 H Creatinine 1.08 Estim Creat Clear Calc 47.4 Estimated GFR 53 POC Glucose 82 Random Glucose 102 Lactic Acid Lactic Acid F/U @ 2Hr Lactic Acid F/U @ 4Hr Calcium 7.4 L Phosphorus Magnesium Total Bilirubin Direct Bilirubin AST ALT Alkaline Phosphatase Troponin I High Sens Total Protein Albumin Lipase Urine Color Urine Appearance Urine pH Ur Specific [place] Urine Protein Urine Glucose (UA) Urine Ketones Urine Blood Urine Nitrite Ur Leukocyte Esterase Urine RBC Urine WBC Ur Squamous Epith Cells Urine Bacteria Hyaline Casts Stool Occult Blood Urine Opiates Screen Urine Fentanyl Screen Ur Barbiturates Screen Ur Phencyclidine Scrn Ur Amphetamines Screen U Benzodiazepines Scrn Urine Cocaine Screen U Marijuana (THC) Screen Influenza Type A (PCR) Influenza Type B (PCR) RSV RNA Qual (PCR) SARS-CoV-2 RNA (RT-PCR) Blood Type Antibody Screen Crossmatch Microbiology Microbiology Results: Microbiology 10/18/22 Unknown Urine clean catch - Urine hess top Urine Culture - Preliminary Culture in progress. 10/18/22 19:00 Blood - Venous Blood Culture - Preliminary Prelim: GNR Gram Stain only 10/18/22 18:50 Blood - Venous Blood Culture - Preliminary Prelim: GNR Gram Stain only Progress Note: A&P Assessment and plan (1) ELYSE (acute kidney injury): Status: Acute (2) Hyponatremia: Status: Acute (3) Hypokalemia: Status: Acute (4) Anemia: Status: Acute (5) Sepsis: Status: Acute (6) Hypotension: Status: Acute (7) Urinary tract infection: Status: Acute (8) Hydronephrosis with renal and ureteral calculus obstruction: Status: Acute (9) Hypoglycemia: Status: Acute Plan So the plan is to now reinstated diet some of her psychotropic medications her inhaler mechanism maintain her benzodiazepines treat her pain aggressive fluid replacement until we can begin to wean the Levophed and she is covered with Levaquin right now for the Gram-negative sepsis Quality Stroke Does the patient have a stroke diagnosis?: No VTE Prior VTE?: No VTE Risk Level:: Medical - moderate - high VTE Device Contraindication: N/A - Device Ordered VTE Drug Contraindication: N/A - Med Ordered
[2022-10-19 15:25] LABS: Platelet Count 77 X10*3/uL (160-400); WBC ABN SCTR FOR CBC 1
[2022-10-19 15:30] LABS: Band Neutrophils Percent 8 % (3-5); Large Platelet PRESENT; Lymphocytes Percent Manual 4 % (20-40); Macrocytosis 1+ (5-14) /OIF; Metamyelocytes Percent 2 %; Microcytosis 1+ (5-14) /OIF; Monocytes Percent Manual 6 % (2-11); Neutrophils Percent Manual 80 % (45-73); Platelet Estimate DECREASED (NORMAL); Platelet Morphology Comment NOTED; RBC Morphology NOTED
[2022-10-19 15:31] LABS: Burr Cells 1+ (0-2) /OIF; Schistocytes 1+ (0-2) /OIF
[2022-10-19 15:32] LABS: Hypochromasia 1+ (5-14) /OIF; Polychromasia 1+ (0-2) /OIF; Smudge Cells PRESENT; Toxic Granulation PRESENT
[2022-10-19 15:33] LABS: Toxic Vacuolation PRESENT
[2022-10-19 15:36] LABS: Lymphocytes Absolute Manual 1.2 X10*3/uL (1.2-4.9); Metamyelocytes Absolute 0.6 X10*3/uL; Monocytes Absolute Manual 1.8 X10*3/uL (0.1-1.2); Neutrophils Absolute Manual 27.1 X10*3/uL (2.0-8.3); White Blood Count 30.8 X10*3/uL (4.8-10.8)
[2022-10-19] MEDS: HYDROmorphone HCl 0.5 MG/0.5 ML SYRINGE IVPUSH ×2 (15:54→23:51)
[2022-10-19] MEDS: Sodium Bicarbonate 8.4% 100 MEQ in Dextrose 5 % 900 ML IV (16:05)
[2022-10-19] MEDS: Heparin Sodium,Porcine 5,000 UNIT/ML VIAL 5000 UNIT SUBCUT ×2 (16:09→22:49)
[2022-10-19 18:15] LABS: Glucose, Whole Blood 116 mg/dL (60-115)
--- NOTE | 2022-10-19 20:04 | PC.NURSE ---
Assumed care at 07:00. Patient alert and oriented, sometimes lethargic associated with administration of her clonipin and dilaudid this afternoon. Moves all erxtremities, follows commands. Was on room air, having abdominal pain right flank, no pain meds at that time, MD notified. Paitent responded well to warm compress blanket to RUQ abdomen. Patient with no ozuna initially, DIscussed with Dr. Gomez at bedside and new order for ozuna catheter, this was placed. Patient on levophed with ecalating dose today 0.32 up to 0.4 mostly increasing in the evening. Patient went to OR for stent placement right ureter in late morning, was medicated there with fentanyl and propofol per report, returned on 6 lpm mask, was titrated back to room air. Patient SpO2 92-93% on RA. Patient was very hungry and repeatedly asking to restart her home psychiatric medications, and MD aware, will be restarting lamictal, clonapin, and Topamax today, discussed with MD and patient educated that these meds are being gradually restarted. Patient with ozuna catheter replaced by urologist, has 5 cc baloon. Patient urine output bloody since stenting, is on xarelto at baseline which is on hold, new order for heparin ppx was started, discused with MD and patient at high risk for DVT due to xarelto on hold, and ok to given heparin ppx despite bloody urine, no clots or shreds in urine. 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 WOund consult placed.
[2022-10-19] MEDS: lamoTRIgine 25 MG TABLET 150 MG PO (21:05)
[2022-10-19] MEDS: Topiramate 25 MG TABLET 75 MG PO (21:05)
[2022-10-19] MEDS: levoFLOXacin/D5W 250 MG/50 ML PIGGYBACK 50 MG IV (21:06)
[2022-10-19 22:06] LABS: Mean Corpuscular HGB Conc 34.3 g/dl (31.0-35.0); Mean Corpuscular Hemoglobin 30.8 pg (27.0-33.0); Mean Corpuscular Volume 89.7 fL (80.0-98.0); Mean Platelet Volume 10.4 fL (9.4-12.3); Red Cell Distribution Width 18.4 % (11.0-16.0)
[2022-10-19 22:17] LABS: Albumin Level 2.2 g/dL (3.5-5.0); Magnesium 1.9 mg/dL (1.6-2.6); Phosphorus 2.7 mg/dL (2.7-4.5)
[2022-10-19 22:24] LABS: Platelet Count 65 X10*3/uL (160-400); WBC ABN SCTR FOR CBC 1
[2022-10-19 22:27] LABS: White Blood Count 36.5 X10*3/uL (4.8-10.8)
[2022-10-19 22:30] LABS: Band Neutrophils Percent 6 % (3-5); Lymphocytes Absolute Manual 2.6 X10*3/uL (1.2-4.9); Lymphocytes Percent Manual 7 % (20-40); Metamyelocytes Absolute 0.7 X10*3/uL; Metamyelocytes Percent 2 %; Monocytes Absolute Manual 1.8 X10*3/uL (0.1-1.2); Monocytes Percent Manual 5 % (2-11); Neutrophils Absolute Manual 31.4 X10*3/uL (2.0-8.3); Neutrophils Percent Manual 80 % (45-73)
[2022-10-19 22:31] LABS: Burr Cells 1+ (0-2) /OIF; Large Platelet PRESENT; Macrocytosis 1+ (5-14) /OIF; Microcytosis 1+ (5-14) /OIF; Platelet Estimate DECREASED (NORMAL); Platelet Morphology Comment NOTED; RBC Morphology NOTED
[2022-10-19 22:32] LABS: Hypochromasia 1+ (5-14) /OIF; Polychromasia 1+ (0-2) /OIF; Smudge Cells PRESENT; Toxic Granulation PRESENT
[2022-10-19] MEDS: levoFLOXacin/D5W 500 MG/100 ML PIGGYBACK 100 MG IV (22:51)
[2022-10-20] VITALS (29 sets, daily range): BP systolic 98–127; BP diastolic 60–85; PULSE 74–122; RESP 10–33; TEMP 36.6–37.2; O2SAT 88–96; BMI 25.4
[2022-10-20] MEDS: Sodium Bicarbonate 8.4% 100 MEQ in Dextrose 5 % 900 ML IV (00:50)
[2022-10-20] MEDS: Albumin Human 25 % 100 ML IV ×5 (00:50→19:55)
[2022-10-20 00:58] LABS: Glucose, Whole Blood 148 mg/dL (60-115)
[2022-10-20] MEDS: ondansetron HCL 4 MG/2 ML VIAL IVPUSH ×2 (05:04→11:29)
[2022-10-20 05:16] LABS: Hematocrit 29.4 % (37.0-47.0); Mean Corpuscular Hemoglobin 30.6 pg (27.0-33.0); Mean Corpuscular Volume 89.9 fL (80.0-98.0); Mean Platelet Volume 11.1 fL (9.4-12.3); Red Blood Count 3.27 X10*6/uL (4.20-5.50); Red Cell Distribution Width 18.3 % (11.0-16.0)
[2022-10-20 05:18] LABS: Platelet Count 48 X10*3/uL (160-400)
[2022-10-20 05:19] LABS: White Blood Count 32.8 X10*3/uL (4.8-10.8)
[2022-10-20 05:34] LABS: Alanine Aminotransferase 71 U/L (0-31); Albumin Level 2.9 g/dL (3.5-5.0); Alkaline Phosphatase 190 U/L (39-117); Anion Gap 13 (12-20); Aspartate Amino Transferase 21 U/L (5-31); Bilirubin Total 5.3 mg/dL (0.0-1.0); Blood Urea Nitrogen 26 mg/dL (9-16); Calcium 8.2 mg/dL (8.4-10.2); Carbon Dioxide 18 mmol/L (22-29); Chloride 110 mmol/L (96-108); Creatinine Clr Calc Pharmacy 63.2; Estimated Glomerular Filt Rate > 60; Glucose Random 105 mg/dL (60-115); Magnesium 1.8 mg/dL (1.6-2.6); Phosphorus 2.2 mg/dL (2.7-4.5); Potassium 2.8 mmol/L (3.3-5.1); Sodium 138 mmol/L (135-145); Total Protein 4.3 g/dL (6.5-8.0)
[2022-10-20 05:37] LABS: Band Neutrophils Percent 6 % (3-5); Lymphocytes Absolute Manual 2.3 X10*3/uL (1.2-4.9); Lymphocytes Percent Manual 7 % (20-40); Monocytes Absolute Manual 0.7 X10*3/uL (0.1-1.2); Monocytes Percent Manual 2 % (2-11); Neutrophils Absolute Manual 29.8 X10*3/uL (2.0-8.3); Neutrophils Percent Manual 85 % (45-73)
[2022-10-20 05:40] LABS: Acanthocytes 1+ (0-2) /OIF; Basophilic Stippling 1+ (0-2) /OIF; Burr Cells 1+ (0-2) /OIF; Dohle Bodies PRESENT; Platelet Estimate DECREASED (NORMAL); Platelet Morphology Comment NORMAL; Polychromasia 1+ (0-2) /OIF; RBC Morphology NOTED; Schistocytes 1+ (0-2) /OIF; Spherocytes 1+ (0-2) /OIF; Toxic Vacuolation PRESENT
[2022-10-20] MEDS: Potassium Phosphate/NS 15 MMOL/250 ML PLAST..BAG 62.5 MMOL IV ×2 (06:42→11:20)
[2022-10-20] MEDS: Thiamine HCL 100 MG TABLET PO (08:18)
[2022-10-20] MEDS: lamoTRIgine 25 MG TABLET 150 MG PO ×2 (08:18→21:14)
[2022-10-20] MEDS: Famotidine/PF 20 MG/2 ML VIAL IVPUSH (08:19)
[2022-10-20 08:54] LABS: Fibrinogen 399 MG/DL (259-690)
[2022-10-20] MEDS: Ketorolac Tromethamine 15 MG/ML VIAL 10 MG IVPUSH (10:04)
[2022-10-20] MEDS: clonazePAM 1 MG TABLET PO ×2 (10:06→18:47)
--- NOTE | 2022-10-20 10:18 | MHC.CM.PN ---
Met with pt to review d/c planning needs: pt presently at [facility] for STR following hip fx w/surgical repair. States prior to STR she was residing in an apartment independently with assistance from her mother for transportation. Pt uses a walker, HCP and [facility]OLST on file. Will refer to [facility] for continued STR needs. BLS transport is needed.
[2022-10-20] MEDS: KCl 20 mEq in 5 % Dex/Lact Rin 20 MEQ/1,000 ML IV.SOLN 100 MEQ IVCONT ×2 (10:24→20:26)
--- NOTE | 2022-10-20 11:16 | MHC.CLN ---
RE: CONSULT WT LOSS, POOR APPETITE, N/V REVIEW PREVIOUS WT HX REVEALS 66.2KG (02/07/21) PT WITH 14% NONSIGNIFCANT WT LOSS X 1 YEAR PT C/O N/V WITH DILAUDID DIET RX: REGULAR-APPROPRIATE NOTED STAGE 1 L BUTTUCK PER WOUND ASSESSMENT MONITOR PO INTAKE IF PO POOR; RECOMMEND ADDING ENSURE SUPPLEMENT FOLLOWING
--- NOTE | 2022-10-20 11:37 | PM.CCPN ---
Subjective Subjective Date of Service: 10/20/22 Interval History: 51-year-old lady with underlying history of AFib, bipolar disorder, prior gastric bypass, chronic hypotension on midodrine, prior UTIs, recent right femoral neck fracture status post surgical repair on 10/02/2022 admitted on 10/19/2022 from [facility] short term rehab with septic shock secondary to gram-negative bacteremia with source secondary to obstructing right renal calculus. Now status post stenting by Urology on 10/19/2022. No events overnight. Continue to require pressor support. Critical Care Time (minutes): 60 Physical Exam Vital Signs: Vital Signs: Last Vital Signs Temp 98.5 F 10/20/22 08:00 Pulse 93 10/20/22 11:00 Resp 21 H 10/20/22 11:00 BP 122/85 10/20/22 11:00 Pulse Ox 93 10/20/22 11:00 O2 Del Method 10/20/22 11:00 BMI result Body Mass Index 25.4 Const: General: no acute distress, alert and awake Eyes: Sclerae: sclerae normal EOM: EOMs intact bilaterally Neck: Neck: Yes no lymphadenopathy, Yes trachea midline and Yes supple Resp: Effort & Inspection: normal respiratory effort and no respiratory distress Auscultation: clear to auscultation bilaterally Cardio: Rate: regular rate Rhythm: regular rhythm Heart sounds: no gallops, no murmurs and no rubs GI: Palpation (GI): Soft to palpation and Other GI palpation findings present ( Nontender) Auscultation: normal bowel sounds Extrem: General: Yes no pedal edema, No clubbing and No cyanosis Objective Data Labs CBC & Chem 7: 10/20/22 04:55 10/20/22 04:55 Labs: Laboratory Results - last 24 hr 10/19/22 10/19/22 10/19/22 13:57 14:30 14:30 WBC 30.8 H* RBC 3.67 L Hgb 11.3 L Hct 33.4 L MCV 91.0 MCH 30.8 MCHC 33.8 RDW 18.1 H Plt Count 77 L D MPV 11.0 Immature Gran % (Auto) Cancelled Neut % (Auto) Cancelled Lymph % (Auto) Cancelled [place] % (Auto) Cancelled Eos % (Auto) Cancelled Baso % (Auto) Cancelled Lymph # (Auto) Cancelled [place] # (Auto) Cancelled Eos # (Auto) Cancelled Baso # (Auto) Cancelled Abs Immat Gran (auto) Cancelled Absolute Neuts (auto) Cancelled Absolute Nucleated RBC 0.030 H Nucleated RBC % (auto) 0.1 Neutrophils % (Manual) 80 H Band Neutrophils % 8 H Lymphocytes % (Manual) 4 L Monocytes % (Manual) 6 Metamyelocytes % 2 Abs Neuts (Manual) 27.1 H Lymphocytes # (Manual) 1.2 Monocytes # (Manual) 1.8 H Metamyelocytes # 0.6 Smudge Cells PRESENT Toxic Granulation PRESENT Toxic Vacuolation PRESENT Dohle Bodies Platelet Estimate DECREASED Large Platelets PRESENT Plt Morphology Comment NOTED RBC Morphology NOTED Polychromasia 1+ (0-2) Hypochromasia 1+ (5-14) Basophilic Stippling Microcytosis 1+ (5-14) Macrocytosis 1+ (5-14) Spherocytes [place] Cells 1+ (0-2) Acanthocytes (Spur) Schistocytes 1+ (0-2) Fibrinogen Sodium 135 Potassium 3.5 D Chloride 112 H Carbon Dioxide 12 L Anion Gap 15 BUN 34 H Creatinine 1.08 Estim Creat Clear Calc 47.4 Estimated GFR 53 POC Glucose 82 Random Glucose 102 Calcium 7.4 L Phosphorus Magnesium Total Bilirubin AST ALT Alkaline Phosphatase Total Protein Albumin 10/19/22 10/19/22 10/19/22 18:11 21:50 21:50 WBC 36.5 H* RBC 3.90 L Hgb 12.0 Hct 35.0 L MCV 89.7 MCH 30.8 MCHC 34.3 RDW 18.4 H Plt Count 65 L MPV 10.4 Immature Gran % (Auto) Cancelled Neut % (Auto) Cancelled Lymph % (Auto) Cancelled [place] % (Auto) Cancelled Eos % (Auto) Cancelled Baso % (Auto) Cancelled Lymph # (Auto) Cancelled [place] # (Auto) Cancelled Eos # (Auto) Cancelled Baso # (Auto) Cancelled Abs Immat Gran (auto) Cancelled Absolute Neuts (auto) Cancelled Absolute Nucleated RBC 0.000 Nucleated RBC % (auto) 0.0 Neutrophils % (Manual) 80 H Band Neutrophils % 6 H Lymphocytes % (Manual) 7 L Monocytes % (Manual) 5 Metamyelocytes % 2 Abs Neuts (Manual) 31.4 H Lymphocytes # (Manual) 2.6 Monocytes # (Manual) 1.8 H Metamyelocytes # 0.7 Smudge Cells PRESENT Toxic Granulation PRESENT Toxic Vacuolation Dohle Bodies Platelet Estimate DECREASED Large Platelets PRESENT Plt Morphology Comment NOTED RBC Morphology NOTED Polychromasia 1+ (0-2) Hypochromasia 1+ (5-14) Basophilic Stippling Microcytosis 1+ (5-14) Macrocytosis 1+ (5-14) Spherocytes [place] Cells 1+ (0-2) Acanthocytes (Spur) Schistocytes Fibrinogen Sodium Potassium Chloride Carbon Dioxide Anion Gap BUN Creatinine Estim Creat Clear Calc Estimated GFR POC Glucose 116 H Random Glucose Calcium Phosphorus 2.7 Magnesium 1.9 Total Bilirubin AST ALT Alkaline Phosphatase Total Protein Albumin 2.2 L D 10/20/22 10/20/22 10/20/22 00:50 04:55 04:55 WBC 32.8 H* RBC 3.27 L Hgb 10.0 L Hct 29.4 L MCV 89.9 MCH 30.6 MCHC 34.0 RDW 18.3 H Plt Count 48 L D MPV 11.1 Immature Gran % (Auto) Cancelled Neut % (Auto) Cancelled Lymph % (Auto) Cancelled [place] % (Auto) Cancelled Eos % (Auto) Cancelled Baso % (Auto) Cancelled Lymph # (Auto) Cancelled [place] # (Auto) Cancelled Eos # (Auto) Cancelled Baso # (Auto) Cancelled Abs Immat Gran (auto) Cancelled Absolute Neuts (auto) Cancelled Absolute Nucleated RBC 0.000 Nucleated RBC % (auto) 0.0 Neutrophils % (Manual) 85 H Band Neutrophils % 6 H Lymphocytes % (Manual) 7 L Monocytes % (Manual) 2 Metamyelocytes % Abs Neuts (Manual) 29.8 H Lymphocytes # (Manual) 2.3 Monocytes # (Manual) 0.7 Metamyelocytes # Smudge Cells Toxic Granulation Toxic Vacuolation PRESENT Dohle Bodies PRESENT Platelet Estimate DECREASED Large Platelets Plt Morphology Comment NORMAL RBC Morphology NOTED Polychromasia 1+ (0-2) Hypochromasia Basophilic Stippling 1+ (0-2) Microcytosis Macrocytosis Spherocytes 1+ (0-2) [place] Cells 1+ (0-2) Acanthocytes (Spur) 1+ (0-2) Schistocytes 1+ (0-2) Fibrinogen Sodium 138 Potassium 2.8 L Chloride 110 H Carbon Dioxide 18 L Anion Gap 13 BUN 26 H Creatinine 0.81 Estim Creat Clear Calc 63.2 Estimated GFR > 60 POC Glucose 148 H Random Glucose 105 Calcium 8.2 L D Phosphorus 2.2 L Magnesium 1.8 Total Bilirubin 5.3 H AST 21 ALT 71 H Alkaline Phosphatase 190 H Total Protein 4.3 L Albumin 2.9 L 10/20/22 08:16 WBC RBC Hgb Hct MCV MCH MCHC RDW Plt Count MPV Immature Gran % (Auto) Neut % (Auto) Lymph % (Auto) [place] % (Auto) Eos % (Auto) Baso % (Auto) Lymph # (Auto) [place] # (Auto) Eos # (Auto) Baso # (Auto) Abs Immat Gran (auto) Absolute Neuts (auto) Absolute Nucleated RBC Nucleated RBC % (auto) Neutrophils % (Manual) Band Neutrophils % Lymphocytes % (Manual) Monocytes % (Manual) Metamyelocytes % Abs Neuts (Manual) Lymphocytes # (Manual) Monocytes # (Manual) Metamyelocytes # Smudge Cells Toxic Granulation Toxic Vacuolation Dohle Bodies Platelet Estimate Large Platelets Plt Morphology Comment RBC Morphology Polychromasia Hypochromasia Basophilic Stippling Microcytosis Macrocytosis Spherocytes [place] Cells Acanthocytes (Spur) Schistocytes Fibrinogen 399 Sodium Potassium Chloride Carbon Dioxide Anion Gap BUN Creatinine Estim Creat Clear Calc Estimated GFR POC Glucose Random Glucose Calcium Phosphorus Magnesium Total Bilirubin AST ALT Alkaline Phosphatase Total Protein Albumin Microbiology Microbiology Results: Microbiology 10/18/22 19:00 Blood - Venous Blood Culture - Preliminary Gram negative tori 10/18/22 18:50 Blood - Venous Blood Culture - Preliminary Gram negative tori 10/18/22 Unknown Urine clean catch - Urine hess top Urine Culture - Preliminary Culture in progress. Progress Note: A&P Assessment and plan (1) ELYSE (acute kidney injury): Status: Acute (2) Septic shock: Status: Acute (3) Hydronephrosis with renal and ureteral calculus obstruction: Status: Acute (4) Urinary tract infection: Status: Acute (5) Afib: Status: Acute (6) Bipolar 1 disorder: Status: Acute (7) Hematuria: Status: Acute Plan Assessment: 51-year-old lady admitted with septic shock secondary to obstructing renal calculus, now status post stenting Plan: Neuro: No acute issues. Cardiac: septic shock, continue to titrate off pressors as tolerated. Underlying AFib, anticoagulation held secondary to hematuria. Pulmonary: No acute issues. Renal: Acute renal failure secondary to obstructing renal calculus, now status post stenting, improving. Non oliguric. Continue to monitor renal indices and urine output. Urology service care appreciated. Endo: No acute issues. GI: No acute issues. ID: Gram-negative bacteremia secondary to obstructing right renal calculus. Continue Levaquin. Cultures are pending. Heme/Onc: Thrombocytopenia, likely consumptive secondary to hematuria. Continue to monitor blood cell counts. Psych: No acute issues. underlying bipolar disorder and anxiety. Miscellaneous: No acute issues. Prophylaxis: intermittent pneumatic compression Diet: regular Critical care time spent: 60 minutes Quality Stroke Does the patient have a stroke diagnosis?: No VTE Prior VTE?: No VTE Risk Level:: Medical - moderate - high VTE Device Contraindication: N/A - Device Ordered VTE Drug Contraindication: N/A - Med Ordered
[2022-10-20 12:16] LABS: Glucose, Whole Blood 129 mg/dL (60-115)
--- NOTE | 2022-10-20 12:35 | P.CONWO_ITS ---
History of Present Illness Data of Consult Service Date: 10/20/22 Requesting physician: Zulema Dean Primary Care Provider: Unknown Physician HPI Reason for consult: Left buttock ulcer 20OCT2022: 51 year old female with history of afib on xarelto, asthmatic bronchitis and bipolar disorder was recovering at subacute facility from hip fracture surgery when she became weak and hypotensive. Brought to ED by EMS and found to have low potassium, hydronephrosis with right sided obstruction and urosepsis. Stent placed yesterday and now on IV Levoquin. Anemia improved from 06/12 to 09/22. Not intubated. Asked to evaluate left buttock stage [address] Dean. Review of Systems Review of Systems: no SOB with positional change. Yes all other systems are reviewed and are negative [facility] Medical History (Updated 10/20/22 @ 12:43 by STANLEY Meadows) Afib Anxiety Arthritis Asthma Bipolar 1 disorder Bronchitis Complications of gastric bypass surgery Hypokalemia Hypotension Migraines PTSD (post-traumatic stress disorder) Functional capacity: wheelchair bound (baseline) Surgical History H/O: History of cholecystectomy Social History Household Members: None Housing: Apartment Do you presently have visiting nurse or other home services: Yes Alcohol intake: never Patient Tobacco Use Status: Former Tobacco user Quit Date: 2018 Tobacco use type: Cigarette Smoked in Last 30 Days: No Use of substances other than those prescribed or required for medical reasons: No Currently Displaying Signs/Symptoms of Drug Intoxication Withdrawal: No Have you been hit, kicked, punched, or otherwise hurt by someone within the past year? If so, by whom?: No Do you feel safe in your current relationship?: No Current Relationship Is there a partner from a previous relationship who is making you feel unsafe now?: No Are you made to feel afraid or neglected: No Advance Directives: No Advance Directives Information Provided: No Do you have thoughts of harming others: None Do you have a plan to hurt others: No Plan Recently lost weight without trying: Yes How much weight loss: Unsure Eating poorly because of decreased appetite: No Nutrition screen score: 4 Patient : No : No Poor oral hygiene: No Current occupational status: disabled Ebola Risk: Travel/Contact With Anyone From Affected Area/s: No Has Patient Experienced Ebola Symptoms: No Meds Allergies Allergy/AdvReac Type Severity Reaction Status Date / Time cephalexin Allergy Swelling Verified 02/07/21 18:19 ciprofloxacin [From Cipro] Allergy Swelling Verified 02/07/21 18:19 coconut oil Allergy Swelling Verified 10/19/22 01:50 duloxetine [From Cymbalta] Allergy Swelling Verified 02/07/21 18:19 Penicillins Allergy Swelling Verified 02/07/21 18:19 Active Medications: Current Medications Albuterol/Ipratropium (Albuterol/Iprat 2.5/0.5mg 3 Ml Ampul.Neb) 3 ml INHALE RQ6H WHILE AWAKE RUPAL Last Admin: 10/20/22 08:31 Dose: Not Given Clonazepam (Clonazepam 1 Mg Tablet) 1 mg PO TID PRN PRN Reason: Anxiety Last Admin: 10/20/22 10:06 Dose: 1 mg Hydromorphone HCl (Hydromorphone Hcl 0.5 Mg/0.5 Ml Syringe) 0.5 mg IVPUSH Q4H PRN; Protocol PRN Reason: Pain, Severe (Pain Scale 7-10) Last Admin: 10/19/22 23:51 Dose: 0.5 mg Norepinephrine Bitartrate (Levophed) 8 mg in 250 mls @ 0 mls/hr IVCONT .Q0M RUPAL; Protocol Last Admin: 10/20/22 04:02 Dose: 0.3 mcg/kg/min, 28.07 mls/hr Levofloxacin (Levaquin) 750 mg in 150 mls @ 100 mls/hr IV Q24H RUPAL Potassium Phosphate (Kphos) 15 mmol in 250 mls @ 62.5 mls/hr IV Q4H RUPAL Stop: 10/20/22 13:59 Last Admin: 10/20/22 11:20 Dose: 62.5 mls/hr Potassium Cl/Dextrose/Lact Ringer's (Kcl 20 Meq In 5 % Dex/Lact Rin) 20 meq in 1,000 mls @ 100 mls/hr IVCONT .Q10H RUPAL Last Admin: 10/20/22 10:24 Dose: 100 mls/hr Albumin Human (Kedbumin 25 %) 100 mls @ 100 mls/hr IV Q6H [facility] Stop: 10/21/22 03:14 Last Infusion: 10/20/22 11:33 Dose: Infused Ketorolac Tromethamine (Ketorolac Tromethamine 15 Mg/Ml Vial) 10 mg IVPUSH Q6H PRN PRN Reason: Pain, Moderate (Pain Scale 4-6 Last Admin: 10/20/22 10:04 Dose: 10 mg Lamotrigine (Lamotrigine 25 Mg Tablet) 150 mg PO BID [facility] Last Admin: 10/20/22 08:18 Dose: 150 mg Ondansetron HCl (Ondansetron Hcl 4 Mg/2 Ml Vial) 4 mg IVPUSH Q6H PRN PRN Reason: Nausea Last Admin: 10/20/22 11:29 Dose: 4 mg Thiamine HCl (Thiamine Hcl 100 Mg Tablet) 100 mg PO DAILY [facility] Last Admin: 10/20/22 08:18 Dose: 100 mg Topiramate (Topiramate 25 Mg Tablet) 75 mg PO BEDTIME [facility] Last Admin: 10/19/22 21:05 Dose: 75 mg Home Medications Medication Instructions Recorded Confirmed Last Taken Type acetaminophen 325 mg tablet 650 mg PO Q6H PRN Pain 10/19/22 10/19/22 Unknown History albuterol sulfate 90 mcg/actuation 2 puff inhalation Q6H PRN Wheezing 10/19/22 10/19/22 Unknown History aerosol inhaler ascorbic acid (vitamin C) 250 mg 250 mg PO DAILY 10/19/22 10/19/22 Unknown History tablet bacillus coagulans-inulin 1 1 cap PO DAILY 10/19/22 10/19/22 Unknown History billion cell-250 mg capsule (Probiotic Formula (inulin)) calcium carbonate 500 mg calcium 1,000 mg PO BID 10/19/22 10/19/22 Unknown History (1,250 mg) chewable tablet cholecalciferol (vitamin D3) 1,250 1,250 mcg PO WE 10/19/22 10/19/22 Unknown History mcg (50,000 unit) tablet clonazepam 1 mg tablet 1 mg PO TID 10/19/22 10/19/22 Unknown History cyanocobalamin (vitamin B-12) 500 500 mcg PO DAILY 10/19/22 10/19/22 Unknown History mcg tablet fluoxetine 20 mg tablet 20 mg PO DAILY 10/19/22 10/19/22 Unknown History fluticasone 500 mcg-salmeterol 50 1 inh inhalation BID 10/19/22 10/19/22 Unknown History mcg/dose blistr powdr for inhalation (Milagroskennethdonnell [facility]) fluticasone propionate 50 1 spray intranasal DAILY 10/19/22 10/19/22 Unknown History mcg/actuation nasal spray,suspension lamotrigine 150 mg tablet 150 mg PO BID 10/19/22 10/19/22 Unknown History midodrine 5 mg tablet 5 mg PO TID 10/19/22 10/19/22 Unknown History olanzapine 2.5 mg tablet (Zyprexa) 2.5 mg PO BEDTIME PRN Anxiety 10/19/2210/19 Unknown History omeprazole 40 mg capsule,delayed 40 mg PO DAILY 10/19/22 10/19/22 Unknown Hist ory release ondansetron HCl 4 mg tablet 4 mg PO Q8H PRN Nausea 10/19/22 10/19/22 Unknown His tory risperidone 1 mg tablet (Risperdal) 1 mg PO DAILY 10/19/22 10/19/22 Unknown History risperidone 2 mg tablet 2 mg PO BEDTIME 10/19/22 10/19/22 Unknown History rivaroxaban 20 mg tablet (Xarelto) 20 mg PO DAILY@1700 10/19/22 10/19/22 Unknown History sucralfate 100 mg/mL oral 10 ml PO QID 10/19/22 10/19/22 Unknown History suspension thiamine HCl (vitamin B1) 100 mg 100 mg PO DAILY 10/19/22 10/19/22 Unknown History tablet topiramate 25 mg tablet 25 mg PO DAILY 10/19/22 10/19/22 Unknown History topiramate 25 mg tablet 75 mg PO BEDTIME 10/19/22 10/19/22 Unknown History Physical Exam Vital Signs and Narrative: Vital Signs: Last Vital Signs Temp 98.5 F 10/20/22 08:00 Pulse 105 H 10/20/22 12:00 Resp 33 H 10/20/22 12:00 BP 115/82 10/20/22 12:00 Pulse Ox 92 10/20/22 12:00 O2 Del Method 10/20/22 12:00 BMI result Body Mass Index 25.4 shows independent bed mobility rolling to left side with pillow in place, right lateral thigh incision is covered in surgical type dressing with approx 8 yomi over 2 cm incision. no surrounding erythema or edema, dressing replaced after quick visualization. While on her left side, she is noted to be sitting in a contaminated chucks soiled with serosang drainage. Barrier cream applied at request of patient - no evidence of skin break down prior to application. Dermis and epidermis firmly intact. Vulvar redness is noted without elpidio discharge on bedding. Results Labs CBC and Chem 7: 10/20/22 04:55 10/20/22 04:55 Labs: Laboratory Results - last 24 hr 10/19/22 10/19/22 10/19/22 13:57 14:30 14:30 MCV 91.0 MCH 30.8 MCHC 33.8 RDW 18.1 H Plt Count 77 L D MPV 11.0 Immature Gran % (Auto) Cancelled Neut % (Auto) Cancelled Lymph % (Auto) Cancelled [place] % (Auto) Cancelled Eos % (Auto) Cancelled Baso % (Auto) Cancelled Lymph # (Auto) Cancelled [place] # (Auto) Cancelled Eos # (Auto) Cancelled Baso # (Auto) Cancelled Abs Immat Gran (auto) Cancelled Absolute Neuts (auto) Cancelled Absolute Nucleated RBC 0.030 H Nucleated RBC % (auto) 0.1 Neutrophils % (Manual) 80 H Band Neutrophils % 8 H Lymphocytes % (Manual) 4 L Monocytes % (Manual) 6 Metamyelocytes % 2 Abs Neuts (Manual) 27.1 H Lymphocytes # (Manual) 1.2 Monocytes # (Manual) 1.8 H Metamyelocytes # 0.6 Smudge Cells PRESENT Toxic Granulation PRESENT Toxic Vacuolation PRESENT Dohle Bodies Platelet Estimate DECREASED Large Platelets PRESENT Plt Morphology Comment NOTED RBC Morphology NOTED Polychromasia 1+ (0-2) Hypochromasia 1+ (5-14) Basophilic Stippling Microcytosis 1+ (5-14) Macrocytosis 1+ (5-14) Spherocytes [place] Cells 1+ (0-2) Acanthocytes (Spur) Schistocytes 1+ (0-2) Fibrinogen Anion Gap 15 Estim Creat Clear Calc 47.4 Estimated GFR 53 POC Glucose 82 Random Glucose 102 Calcium 7.4 L Phosphorus Magnesium Total Bilirubin AST ALT Alkaline Phosphatase Total Protein Albumin 10/19/22 10/19/22 10/19/22 18:11 21:50 21:50 MCV 89.7 MCH 30.8 MCHC 34.3 RDW 18.4 H Plt Count 65 L MPV 10.4 Immature Gran % (Auto) Cancelled Neut % (Auto) Cancelled Lymph % (Auto) Cancelled [place] % (Auto) Cancelled Eos % (Auto) Cancelled Baso % (Auto) Cancelled Lymph # (Auto) Cancelled [place] # (Auto) Cancelled Eos # (Auto) Cancelled Baso # (Auto) Cancelled Abs Immat Gran (auto) Cancelled Absolute Neuts (auto) Cancelled Absolute Nucleated RBC 0.000 Nucleated RBC % (auto) 0.0 Neutrophils % (Manual) 80 H Band Neutrophils % 6 H Lymphocytes % (Manual) 7 L Monocytes % (Manual) 5 Metamyelocytes % 2 Abs Neuts (Manual) 31.4 H Lymphocytes # (Manual) 2.6 Monocytes # (Manual) 1.8 H Metamyelocytes # 0.7 Smudge Cells PRESENT Toxic Granulation PRESENT Toxic Vacuolation Dohle Bodies Platelet Estimate DECREASED Large Platelets PRESENT Plt Morphology Comment NOTED RBC Morphology NOTED Polychromasia 1+ (0-2) Hypochromasia 1+ (5-14) Basophilic Stippling Microcytosis 1+ (5-14) Macrocytosis 1+ (5-14) Spherocytes [place] Cells 1+ (0-2) Acanthocytes (Spur) Schistocytes Fibrinogen Anion Gap Estim Creat Clear Calc Estimated GFR POC Glucose 116 H Random Glucose Calcium Phosphorus 2.7 Magnesium 1.9 Total Bilirubin AST ALT Alkaline Phosphatase Total Protein Albumin 2.2 L D 10/20/22 10/20/22 10/20/22 00:50 04:55 04:55 MCV 89.9 MCH 30.6 MCHC 34.0 RDW 18.3 H Plt Count 48 L D MPV 11.1 Immature Gran % (Auto) Cancelled Neut % (Auto) Cancelled Lymph % (Auto) Cancelled [place] % (Auto) Cancelled Eos % (Auto) Cancelled Baso % (Auto) Cancelled Lymph # (Auto) Cancelled [place] # (Auto) Cancelled Eos # (Auto) Cancelled Baso # (Auto) Cancelled Abs Immat Gran (auto) Cancelled Absolute Neuts (auto) Cancelled Absolute Nucleated RBC 0.000 Nucleated RBC % (auto) 0.0 Neutrophils % (Manual) 85 H Band Neutrophils % 6 H Lymphocytes % (Manual) 7 L Monocytes % (Manual) 2 Metamyelocytes % Abs Neuts (Manual) 29.8 H Lymphocytes # (Manual) 2.3 Monocytes # (Manual) 0.7 Metamyelocytes # Smudge Cells Toxic Granulation Toxic Vacuolation PRESENT Dohle Bodies PRESENT Platelet Estimate DECREASED Large Platelets Plt Morphology Comment NORMAL RBC Morphology NOTED Polychromasia 1+ (0-2) Hypochromasia Basophilic Stippling 1+ (0-2) Microcytosis Macrocytosis Spherocytes 1+ (0-2) [place] Cells 1+ (0-2) Acanthocytes (Spur) 1+ (0-2) Schistocytes 1+ (0-2) Fibrinogen Anion Gap 13 Estim Creat Clear Calc 63.2 Estimated GFR > 60 POC Glucose 148 H Random Glucose 105 Calcium 8.2 L D Phosphorus 2.2 L Magnesium 1.8 Total Bilirubin 5.3 H AST 21 ALT 71 H Alkaline Phosphatase 190 H Total Protein 4.3 L Albumin 2.9 L 10/20/22 10/20/22 08:16 12:12 MCV MCH MCHC RDW Plt Count MPV Immature Gran % (Auto) Neut % (Auto) Lymph % (Auto) [place] % (Auto) Eos % (Auto) Baso % (Auto) Lymph # (Auto) [place] # (Auto) Eos # (Auto) Baso # (Auto) Abs Immat Gran (auto) Absolute Neuts (auto) Absolute Nucleated RBC Nucleated RBC % (auto) Neutrophils % (Manual) Band Neutrophils % Lymphocytes % (Manual) Monocytes % (Manual) Metamyelocytes % Abs Neuts (Manual) Lymphocytes # (Manual) Monocytes # (Manual) Metamyelocytes # Smudge Cells Toxic Granulation Toxic Vacuolation Dohle Bodies Platelet Estimate Large Platelets Plt Morphology Comment RBC Morphology Polychromasia Hypochromasia Basophilic Stippling Microcytosis Macrocytosis Spherocytes [place] Cells Acanthocytes (Spur) Schistocytes Fibrinogen 399 Anion Gap Estim Creat Clear Calc Estimated GFR POC Glucose 129 H Random Glucose Calcium Phosphorus Magnesium Total Bilirubin AST ALT Alkaline Phosphatase Total Protein Albumin Imaging Radiologist's Impressions: Impressions Guidance Fluoroscopy 10/19/22 13:11 FINDINGS~\^^ Intraoperative fluoroscopy provided for use by Dr. Gomez. Please see operative note for detailed findings. Assessment and Plan (1) Dermatitis, unspecified: Status: Acute Plan No skin break down is seen on the buttocks and intact blanching with chucks wetness suggests potential etiologies other than pressure. Recommend continued use of barrier cream to intact dermis of the buttocks. Anemia improving.
[2022-10-20] MEDS: HYDROmorphone HCl 0.5 MG/0.5 ML SYRINGE IVPUSH (13:32)
--- NOTE | 2022-10-20 14:21 | HO.POSTANES ---
Post Anesthesia Evaluation Post Anesthesia Evaluation Vital Signs: Vital Signs Temp Pulse Resp BP Pulse Ox O2 Del Method 10/20/22 13:00 98.9 F 89 25 H 119/81 95 Room Air 10/20/22 12:00 105 H 33 H 115/82 92 Room Air 10/20/22 11:00 93 21 H 122/85 93 Room Air 10/20/22 10:00 99 22 H 120/71 94 Room Air 10/20/22 09:00 103 H 17 116/78 93 Room Air 10/20/22 08:00 98.5 F 114 H 22 H 119/80 93 Room Air 10/20/22 07:00 112 H 19 98/63 93 Room Air 10/20/22 05:53 108 H 14 112/73 93 Room Air 10/20/22 05:00 97.8 F 107 H 14 116/80 92 Room Air 10/20/22 04:00 98.7 F 104 H 16 102/61 93 Room Air 10/20/22 04:02 102/61 10/20/22 03:43 110 H 112/74 10/20/22 03:27 108 H 118/74 10/20/22 03:00 98.0 F 108 H 14 113/75 93 Room Air Anesthesia: Monitored Mental Status: Awake Pain Control: Satisfactory Nausea/Vomiting: None Hydration: Adequate Anesthesia-Related Issues: No Anes. Related Issues
[2022-10-20] MEDS: Albuterol/Iprat 2.5/0.5MG 3 ML AMPUL.NEB INHALE (18:15)
[2022-10-20 18:29] LABS: Glucose, Whole Blood 107 mg/dL (60-115)
[2022-10-20] MEDS: levoFLOXacin/D5W 750 MG/150 ML PIGGYBACK 100 MG IV (20:00)
[2022-10-20] MEDS: Topiramate 25 MG TABLET 75 MG PO (21:12)
--- NOTE | 2022-10-20 22:59 | PC.NURSE ---
PATIENT DROWSY ON MORNING ASSESSMENT, PATIENT COMPLAINED OF PAIN BUT DID NOT WANT TO TAKE DILAUDID AND REQUESTED SOMETHING LESS. PER MD 10MG OF TORADOL GIVEN WITH SOME EFFECT. PATIENT COMPLAINED OF ANXIETY AND PRN KLONOPIN GIVEN TWICE OVER SHIFT, SEE EMAR. PATIENT LATER COMPLAINED OF PAIN AFTER TORADOL ADMINISTRATION AND ASKED TO TRY DILAUDIN. PRN DILAUDIN GIVEN AT ROUGHLY 1300 PATIENT GILL DRAINGING STRONG HEMATURIA. PATIENT AND FAMILY UPDATED ON HEALTH STATUS, REPOSITIONED Q2HR.
[2022-10-21] VITALS (28 sets, daily range): BP systolic 91–133; BP diastolic 45–89; PULSE 97–144; RESP 16–35; TEMP 37.1–38.1; O2SAT 84–94; BMI 25.2
[2022-10-21] MEDS: HYDROmorphone HCl 0.5 MG/0.5 ML SYRINGE IVPUSH ×3 (00:24→15:40)
[2022-10-21] MEDS: Albuterol/Iprat 2.5/0.5MG 3 ML AMPUL.NEB INHALE ×2 (00:35→07:31)
[2022-10-21] MEDS: Furosemide 20 MG/2 ML VIAL IVPUSH ×2 (01:09→09:11)
--- NOTE | 2022-10-21 02:21 | PC.NURSE ---
Addendum entered by Josh Hilliard RN 10/21/22 06:37: CURRENT FLUID BALANCE = 8.7 LITERS (+) Addendum entered by Josh Hilliard RN 10/21/22 06:22: REMAINS WITH DIFFUSE FINE CRACKLES LOWER 2/3 BILATERALLY..SAO2 93% WITH 3 L/M CANNULA..NO DISTRESS AT REST...RESTING HR 104-108...HR 120'S WHEN AWAKE...AM PDT=707...KPO4 15MMOL ORDERED...BOOM OPERATOR TO REVIEW NEED FOR FURTHER DIURESIS Addendum entered by Josh Hilliard RN 10/21/22 05:04: 1AM-5AM GILL DRAINED APPROX 1800ml plus 3 small leakage/pad changes..bp stable with levophed 0.2 mcg/kg/min..resting hr decreased to 110-112...am chemistry and bnp labs drawn/pending..denies discomfort Original Note: CARE ASSUMED 23:15..AWAKE..ALERT..ORIENTED X3 BUT VAGUE RESPONSES AT TIMES...O2 2 L/M...SAO2 91-92%...FINE CRACKLES 1/2-2/3 LOWER [place]....C/O FEELING WINDED ..UPDRAFT PER REQUEST...F;UID BALANCE SINCE ADMIT APPROX 9.7 LITERS (+)...IV FLUIDS D5LR 1000/KCL 20MEQ 100 CC/HR...GILL WITH BLODDY DRAINAGE..LEAKING URINE AROUND CATHETER...UNABLE TO REPOSITION CATHETER..NEW #16 FR GILL CATHETER INSERTED..HR ACCELERATING..SINUS TCH HR 140-142...ICU RESTAURANT CREW PERSON PRESENT...LASIX 20MG IV GIVEN...TO CONTINUE IV FLUIDS WITH KCL..1AM-2AM GILL DRAINED 475ml..SMALL AMOUNT LEAKAGE AROUND CATHETER..TO TREND HR RESPONSE WITH DIURESIS PER ICU RESTAURANT CREW PERSON...PREVIOUSLY RECEIVED DILAUDID FOR ABDOMINAL AND GENERALIZED PAIN..DENIES DISCOMFORT AT PRESENT...DOZING NOW..SINUS TACH HR 130-132 AFTER INITIAL DIURESIS
[2022-10-21] MEDS: Albumin Human 25 % 100 ML IV (02:37)
[2022-10-21] MEDS: KCl 20 mEq in 5 % Dex/Lact Rin 20 MEQ/1,000 ML IV.SOLN 100 MEQ IVCONT (03:45)
[2022-10-21 04:58] LABS: VBG HCO3 19 mmol/L (22-26); VBG pCO2 31 mmHg; VBG pO2 53 mmHg
[2022-10-21 05:35] LABS: Mean Corpuscular HGB Conc 33.3 g/dl (31.0-35.0); Mean Corpuscular Hemoglobin 30.6 pg (27.0-33.0); Mean Corpuscular Volume 91.8 fL (80.0-98.0); Mean Platelet Volume 11.4 fL (9.4-12.3); Red Blood Count 2.94 X10*6/uL (4.20-5.50); Red Cell Distribution Width 18.3 % (11.0-16.0); WBC ABN SCTR FOR CBC 1
[2022-10-21 05:36] LABS: Platelet Count 36 X10*3/uL (160-400); White Blood Count 23.8 X10*3/uL (4.8-10.8)
[2022-10-21 05:53] LABS: Albumin Level 3.6 g/dL (3.5-5.0); Anion Gap 15 (12-20); Blood Urea Nitrogen 20 mg/dL (9-16); Calcium 8.8 mg/dL (8.4-10.2); Carbon Dioxide 20 mmol/L (22-29); Chloride 109 mmol/L (96-108); Creatinine Clr Calc Pharmacy 68.9; Estimated Glomerular Filt Rate > 60; Glucose Random 105 mg/dL (60-115); Magnesium 1.6 mg/dL (1.6-2.6); Phosphorus 2.3 mg/dL (2.7-4.5); Potassium 3.3 mmol/L (3.3-5.1); Sodium 141 mmol/L (135-145)
[2022-10-21 05:57] LABS: B Type Natriuretic Peptide 886 pg/mL (<100)
[2022-10-21 06:07] LABS: Band Neutrophils Percent 3 % (3-5); Lymphocytes Absolute Manual 2.4 X10*3/uL (1.2-4.9); Lymphocytes Percent Manual 10 % (20-40); Neutrophils Absolute Manual 21.4 X10*3/uL (2.0-8.3); Neutrophils Percent Manual 87 % (45-73)
[2022-10-21 06:08] LABS: Acanthocytes 1+ (0-2) /OIF; Basophilic Stippling 1+ (0-2) /OIF; Platelet Estimate DECREASED (NORMAL); Platelet Morphology Comment NORMAL; RBC Morphology NOTED; Schistocytes 1+ (0-2) /OIF; Target Cells 1+ (5-14) /OIF
[2022-10-21 06:09] LABS: Dohle Bodies PRESENT; Polychromasia 1+ (0-2) /OIF; Toxic Granulation PRESENT; Toxic Vacuolation PRESENT
[2022-10-21 06:42] LABS: Venous Blood Gas Refer to POC result
[2022-10-21] MEDS: Potassium Phosphate/NS 15 MMOL/250 ML PLAST..BAG 62.5 MMOL IV (07:36)
--- NOTE | 2022-10-21 07:50 | P.CDIC_ITS ---
CDI Concurrent Query Documentation Clarification: PHYSICIAN'S DOCUMENTATION REQUEST Date of Query: 10/21/22 0750 Patient Name: Sandrita Davalos Admit Date: 10/18/22 Dear Doctor, A review of the medical record indicates additional documentation may be needed. Please review below and update the documentation accordingly. Clinical Indicators: Risk Factors/Clinical Indicators/Treatments H&H on 10/18/22: 7.0/21.0 stool occult blood positive on 10/18/22 blood transfusion received Per MD progress note 10/19/22: anticoagulation held secondary to hematuria. Based on the above, could you clarify in the Progress Notes which of the following is the most likely type of anemia you are evaluating, treating, and/or monitoring? * Acute blood loss anemia * Acute blood loss anemia with baseline chronic anemia (specify type) * Anemia of chronic disease- indicate if neoplastic disease, CKD, or other * Anemia due to extrinsic circulating anticoagulant * Other ? please specify * Unable to determine Use of terms such as suspected, likely, concern for, or probable (associated with a specific diagnosis that is being evaluated, monitored, or treated as if it exists) are acceptable and can be coded in the inpatient setting, when documented at the time of discharge. Thank you, Angie Kramer RN Extension: [phone] Please use your independent medical judgment in providing your response. THIS QUERY IS PART OF THE PERMANENT MEDICAL RECORD Provider Response: Other (Acute blood loss anemia secondary to hematuria) Other Diagnosis: Acute blood loss anemia secondary to hematuria
[2022-10-21] MEDS: clonazePAM 1 MG TABLET PO ×2 (08:01→15:40)
[2022-10-21] MEDS: ondansetron HCL 4 MG/2 ML VIAL IVPUSH ×3 (08:13→19:25)
[2022-10-21] MEDS: lamoTRIgine 25 MG TABLET 150 MG PO ×2 (09:44→21:43)
[2022-10-21] MEDS: Thiamine HCL 100 MG TABLET PO (09:45)
[2022-10-21] MEDS: Lactulose 20 GM/30 ML SOLUTION 30 GM PO (09:46)
[2022-10-21] MEDS: Magnesium Sulfate/H2O 2 GM/50 ML PIGGYBACK IV (09:58)
--- NOTE | 2022-10-21 10:13 | PM.CCPN ---
Subjective Subjective Date of Service: 10/21/22 Interval History: 51-year-old lady with underlying history of AFib, bipolar disorder, prior gastric bypass, chronic hypotension on midodrine, prior UTIs, recent right femoral neck fracture status post surgical repair on 10/02/2022 admitted on 10/19/2022 from [facility] short term rehab with septic shock secondary to Klebsiella bacteremia with source secondary to obstructing right renal calculus. Now status post stenting by Urology on 10/19/2022. No events overnight. Pressor requirements and leukocytosis are improving. Critical Care Time (minutes): 45 Physical Exam Vital Signs: Vital Signs: Last Vital Signs Temp 100.4 F 10/21/22 08:00 Pulse 121 H 10/21/22 10:00 Resp 24 H 10/21/22 10:00 BP 107/77 10/21/22 10:00 Pulse Ox 88 L 10/21/22 10:00 O2 Del Method 10/21/22 10:00 O2 Flow Rate 4 10/21/22 10:00 BMI result Body Mass Index 25.2 Const: General: no acute distress, alert and awake Eyes: Sclerae: sclerae normal EOM: EOMs intact bilaterally Neck: Neck: Yes no lymphadenopathy, Yes trachea midline and Yes supple Resp: Effort & Inspection: normal respiratory effort and no respiratory distress Auscultation: crackles (Diffuse bilateral) Cardio: Rate: tachycardic Rhythm: regular rhythm Heart sounds: no gallops, no murmurs and no rubs GI: Palpation (GI): Soft to palpation and Other GI palpation findings present ( Nontender) Auscultation: normal bowel sounds Extrem: General: No clubbing, No cyanosis and Yes edema (1+ bilateral) Objective Data Labs CBC & Chem 7: 10/21/22 04:50 10/21/22 04:50 Labs: Laboratory Results - last 24 hr 10/20/22 10/20/22 10/21/22 12:12 18:25 04:50 WBC 23.8 H RBC 2.94 L Hgb 9.0 L Hct 27.0 L MCV 91.8 MCH 30.6 MCHC 33.3 RDW 18.3 H Plt Count 36 L MPV 11.4 Immature Gran % (Auto) Cancelled Neut % (Auto) Cancelled Lymph % (Auto) Cancelled [place] % (Auto) Cancelled Eos % (Auto) Cancelled Baso % (Auto) Cancelled Lymph # (Auto) Cancelled [place] # (Auto) Cancelled Eos # (Auto) Cancelled Baso # (Auto) Cancelled Abs Immat Gran (auto) Cancelled Absolute Neuts (auto) Cancelled Absolute Nucleated RBC 0.000 Nucleated RBC % (auto) 0.0 Neutrophils % (Manual) 87 H Band Neutrophils % 3 Lymphocytes % (Manual) 10 L Abs Neuts (Manual) 21.4 H Lymphocytes # (Manual) 2.4 Toxic Granulation PRESENT Toxic Vacuolation PRESENT Dohle Bodies PRESENT Platelet Estimate DECREASED Plt Morphology Comment NORMAL RBC Morphology NOTED Polychromasia 1+ (0-2) Basophilic Stippling 1+ (0-2) Target Cells 1+ (5-14) Acanthocytes (Spur) 1+ (0-2) Schistocytes 1+ (0-2) VBG pH VBG pCO2 VBG pO2 VBG HCO3 VBG O2 Saturation VBG Base Excess Sodium Potassium Chloride Carbon Dioxide Anion Gap BUN Creatinine Estim Creat Clear Calc Estimated GFR POC Glucose 129 H 107 Random Glucose Calcium Phosphorus Magnesium B-Natriuretic Peptide Albumin 10/21/22 10/21/22 10/21/22 04:50 04:50 04:50 WBC RBC Hgb Hct MCV MCH MCHC RDW Plt Count MPV Immature Gran % (Auto) Neut % (Auto) Lymph % (Auto) [place] % (Auto) Eos % (Auto) Baso % (Auto) Lymph # (Auto) [place] # (Auto) Eos # (Auto) Baso # (Auto) Abs Immat Gran (auto) Absolute Neuts (auto) Absolute Nucleated RBC Nucleated RBC % (auto) Neutrophils % (Manual) Band Neutrophils % Lymphocytes % (Manual) Abs Neuts (Manual) Lymphocytes # (Manual) Toxic Granulation Toxic Vacuolation Dohle Bodies Platelet Estimate Plt Morphology Comment RBC Morphology Polychromasia Basophilic Stippling Target Cells Acanthocytes (Spur) Schistocytes VBG pH 7.40 VBG pCO2 31 VBG pO2 53 VBG HCO3 19 L VBG O2 Saturation 82.0 VBG Base Excess -4.0 Sodium 141 Potassium 3.3 Chloride 109 H Carbon Dioxide 20 L Anion Gap 15 BUN 20 H Creatinine 0.74 Estim Creat Clear Calc 68.9 Estimated GFR > 60 POC Glucose Random Glucose 105 Calcium 8.8 D Phosphorus 2.3 L Magnesium 1.6 B-Natriuretic Peptide 886 H Albumin 3.6 Microbiology Microbiology Results: Microbiology 10/18/22 19:00 Blood - Venous Blood Culture - Final Klebsiella pneumoniae 10/18/22 18:50 Blood - Venous Blood Culture - Final Klebsiella pneumoniae 10/19/22 12:49 Urine Other - Kidney Right Urine Culture - Final Klebsiella pneumoniae 10/18/22 Unknown Urine clean catch - Urine hess top Urine Culture - Final Klebsiella pneumoniae Progress Note: A&P Assessment and plan (1) Hematuria: Status: Acute (2) Bipolar 1 disorder: Status: Acute (3) Afib: Status: Acute (4) Septic shock: Status: Acute (5) ELYSE (acute kidney injury): Status: Acute (6) Hydronephrosis with renal and ureteral calculus obstruction: Status: Acute (7) Bacteremia due to Klebsiella pneumoniae: Status: Acute Plan Assessment: 51-year-old lady admitted with septic shock with Klebsiella bacteremia secondary to obstructing renal calculus, now status post stenting Plan: Neuro: No acute issues. Cardiac: septic shock, continue to titrate off pressors as tolerated. Underlying AFib, anticoagulation held secondary to hematuria. Pulmonary: No acute issues. Renal: Acute renal failure secondary to obstructing renal calculus, now status post stenting, improving. Him a to really is improving. Non oliguric. Continue to monitor renal indices and urine output. Urology service care appreciated. Endo: No acute issues. GI: No acute issues. ID: Klebsiella bacteremia secondary to obstructing right renal calculus. Continue Levaquin. Heme/Onc: Thrombocytopenia, likely consumptive secondary to hematuria. Continue to monitor blood cell counts. Psych: No acute issues. underlying bipolar disorder and anxiety. Miscellaneous: No acute issues. Prophylaxis: intermittent pneumatic compression Diet: regular Critical care time spent: 45 minutes Quality Stroke Does the patient have a stroke diagnosis?: No VTE Prior VTE?: No VTE Risk Level:: Medical - moderate - high VTE Device Contraindication: N/A - Device Ordered VTE Drug Contraindication: N/A - Med Ordered
--- NOTE | 2022-10-21 13:06 | PM.UROPN ---
Subjective Subjective Date of Service: 10/21/22 Interval history: Stent placed on Thursday White count has fallen from 36 to 23 Pressor requirement reducing Culture confirms Klebsiella Levaquin sensitive Tobar catheter can be discharged tomorrow Physical Exam Vital Signs: Vital Signs: Last Vital Signs Temp 100.0 F 10/21/22 12:00 Pulse 113 H 10/21/22 12:00 Resp 26 H 10/21/22 12:00 BP 102/68 10/21/22 12:00 Pulse Ox 91 L 10/21/22 12:00 O2 Del Method 10/21/22 12:00 O2 Flow Rate 4 10/21/22 12:00 BMI result Body Mass Index 25.2 Const: General: cooperative, healthy appearing, comfortable and no acute distress Orientation/consciousness: patient oriented x3 HEENT: Face and sinus: Yes normal facial exam Mouth: moist mucous membranes Neck: Neck: Yes normal visual inspection, Yes full ROM and Yes trachea midline Chest: Chest palpation & inspection: normal inspection of the chest Resp: Effort & Inspection: normal respiratory effort, able to speak in complete sentences and no respiratory distress GI: Inspection: Yes normal to inspection Back/Spine/Pelvis: Cervical Spine: normal cervical lordosis Thoracic/Lumbar Spine: thoracic and lumbar spine normal to inspection Skin: General skin exam: no rashes or lesions noted Neuro: General: patient oriented x3, tone normal and moves all extremities Extrem: General: Yes normal to inspection and Yes capillary refill normal Urology Results Labs CBC & Chem 7: 10/21/22 04:50 10/21/22 04:50 Labs: Laboratory Results - last 24 hr 10/20/22 10/21/22 10/21/22 18:25 04:50 04:50 WBC 23.8 H RBC 2.94 L Hgb 9.0 L Hct 27.0 L MCV 91.8 MCH 30.6 MCHC 33.3 RDW 18.3 H Plt Count 36 L MPV 11.4 Immature Gran % (Auto) Cancelled Neut % (Auto) Cancelled Lymph % (Auto) Cancelled [place] % (Auto) Cancelled Eos % (Auto) Cancelled Baso % (Auto) Cancelled Lymph # (Auto) Cancelled [place] # (Auto) Cancelled Eos # (Auto) Cancelled Baso # (Auto) Cancelled Abs Immat Gran (auto) Cancelled Absolute Neuts (auto) Cancelled Absolute Nucleated RBC 0.000 Nucleated RBC % (auto) 0.0 Neutrophils % (Manual) 87 H Band Neutrophils % 3 Lymphocytes % (Manual) 10 L Abs Neuts (Manual) 21.4 H Lymphocytes # (Manual) 2.4 Toxic Granulation PRESENT Toxic Vacuolation PRESENT Dohle Bodies PRESENT Platelet Estimate DECREASED Plt Morphology Comment NORMAL RBC Morphology NOTED Polychromasia 1+ (0-2) Basophilic Stippling 1+ (0-2) Target Cells 1+ (5-14) Acanthocytes (Spur) 1+ (0-2) Schistocytes 1+ (0-2) VBG pH VBG pCO2 VBG pO2 VBG HCO3 VBG O2 Saturation VBG Base Excess Sodium 141 Potassium 3.3 Chloride 109 H Carbon Dioxide 20 L Anion Gap 15 BUN 20 H Creatinine 0.74 Estim Creat Clear Calc 68.9 Estimated GFR > 60 POC Glucose 107 Random Glucose 105 Calcium 8.8 D Phosphorus 2.3 L Magnesium 1.6 B-Natriuretic Peptide Albumin 3.6 10/21/22 10/21/22 04:50 04:50 WBC RBC Hgb Hct MCV MCH MCHC RDW Plt Count MPV Immature Gran % (Auto) Neut % (Auto) Lymph % (Auto) [place] % (Auto) Eos % (Auto) Baso % (Auto) Lymph # (Auto) [place] # (Auto) Eos # (Auto) Baso # (Auto) Abs Immat Gran (auto) Absolute Neuts (auto) Absolute Nucleated RBC Nucleated RBC % (auto) Neutrophils % (Manual) Band Neutrophils % Lymphocytes % (Manual) Abs Neuts (Manual) Lymphocytes # (Manual) Toxic Granulation Toxic Vacuolation Dohle Bodies Platelet Estimate Plt Morphology Comment RBC Morphology Polychromasia Basophilic Stippling Target Cells Acanthocytes (Spur) Schistocytes VBG pH 7.40 VBG pCO2 31 VBG pO2 53 VBG HCO3 19 L VBG O2 Saturation 82.0 VBG Base Excess -4.0 Sodium Potassium Chloride Carbon Dioxide Anion Gap BUN Creatinine Estim Creat Clear Calc Estimated GFR POC Glucose Random Glucose Calcium Phosphorus Magnesium B-Natriuretic Peptide 886 H Albumin Progress Note: A&P Assessment and plan (1) Bacteremia due to Klebsiella pneumoniae: Status: Acute (2) ELYSE (acute kidney injury): Status: Acute (3) Hydronephrosis with renal and ureteral calculus obstruction: Status: Acute Plan Continue to follow Time Spent With Patient Time: Total time spent is greater than 50% in coordination of care (as documented) at patient's floor/unit and/or counseling patient: Progress Note: Quality Stroke Does the patient have a stroke diagnosis?: No
[2022-10-21] MEDS: Furosemide 40 MG/4 ML VIAL IVPUSH (13:22)
--- NOTE | 2022-10-21 18:32 | PC.NURSE ---
Resumed care at approximately 1500. O2 titrated up from 7L to 8L with humidification application for dry nares, satting in the low to mid 90s. Pt's Levophed tirated down, tolerated well. PRN meds given for pain and nausea with good effect. Pt currently resting with no acute distress. Repositioned q2hr and as needed, dressing foam applied to bony prominences. Safety maintained. Will continue to monitor.
[2022-10-21] MEDS: levoFLOXacin/D5W 750 MG/150 ML PIGGYBACK 100 MG IV (19:25)
[2022-10-21] MEDS: Ketorolac Tromethamine 15 MG/ML VIAL 10 MG IVPUSH (19:31)
[2022-10-21 19:40] LABS: Anion Gap 14 (12-20); Blood Urea Nitrogen 17 mg/dL (9-16); Calcium 8.7 mg/dL (8.4-10.2); Carbon Dioxide 26 mmol/L (22-29); Chloride 108 mmol/L (96-108); Creatinine Clr Calc Pharmacy 72.8; Estimated Glomerular Filt Rate > 60; Glucose Random 106 mg/dL (60-115); Magnesium 1.7 mg/dL (1.6-2.6); Phosphorus 3.5 mg/dL (2.7-4.5); Potassium 3.1 mmol/L (3.3-5.1); Sodium 145 mmol/L (135-145)
[2022-10-21] MEDS: Magnesium Sulfate/D5W 1 GM/100 ML PIGGYBACK IV (21:13)
[2022-10-21] MEDS: Potassium Chloride/H20 40 MEQ/100 ML PIGGYBACK 50 MEQ IV (21:13)
[2022-10-21] MEDS: Pantoprazole Sodium 40 MG/10 ML VIAL IVPUSH (21:42)
[2022-10-21] MEDS: diphenhydrAMINE HCL 50 MG/ML VIAL 12.5 MG IVPUSH (21:43)
[2022-10-21] MEDS: Topiramate 25 MG TABLET 75 MG PO (21:44)
[2022-10-22] VITALS (31 sets, daily range): BP systolic 91–126; BP diastolic 54–84; PULSE 104–130; RESP 18–30; TEMP 37–37.9; O2SAT 60–95; BMI 23.4
[2022-10-22] MEDS: HYDROmorphone HCl 0.5 MG/0.5 ML SYRINGE IVPUSH ×6 (00:08→23:38)
[2022-10-22] MEDS: Furosemide 200 MG in 0.9 % Sodium Chloride 80 ML IVCONT ×2 (00:11→17:10)
[2022-10-22 05:05] LABS: VBG Base Excess -0.6 mmol/L; VBG HCO3 24 mmol/L (22-26); VBG pCO2 41 mmHg; VBG pH 7.37 (7.32-7.43); VBG pO2 80 mmHg
[2022-10-22 06:01] LABS: Albumin Level 3.2 g/dL (3.5-5.0); Anion Gap 14 (12-20); Blood Urea Nitrogen 20 mg/dL (9-16); Calcium 8.7 mg/dL (8.4-10.2); Carbon Dioxide 26 mmol/L (22-29); Chloride 107 mmol/L (96-108); Creatinine Clr Calc Pharmacy 65.4; Estimated Glomerular Filt Rate > 60; Glucose Random 96 mg/dL (60-115); Magnesium 1.9 mg/dL (1.6-2.6); Phosphorus 3.4 mg/dL (2.7-4.5); Potassium 3.4 mmol/L (3.3-5.1); Sodium 144 mmol/L (135-145)
[2022-10-22 06:07] LABS: Venous Blood Gas Refer to POC result
[2022-10-22 06:11] LABS: MANUAL DIFF FLAG NO
[2022-10-22 06:13] LABS: Basophils Absolute Auto 0.1 X10*3/uL (0.0-0.2); Basophils Percent Auto 0.4 % (0-2); Eosinophils Absolute Auto 0.1 X10*3/uL (0.0-0.4); Eosinophils Percent Auto 0.4 % (0-4); Hematocrit 28.6 % (37.0-47.0); Hemoglobin 9.7 g/dl (12.0-16.0); Imm Gran Abs Auto 0.41 X10*3/uL (0.00-0.03); Imm Gran Pct Auto 1.4 % (0.0-0.4); Lymphocytes Absolute Auto 3.2 X10*3/uL (1.2-4.9); Lymphocytes Percent Auto 10.8 % (20-40); Mean Corpuscular HGB Conc 33.9 g/dl (31.0-35.0); Mean Corpuscular Hemoglobin 31.2 pg (27.0-33.0); Mean Platelet Volume 11.6 fL (9.4-12.3); Monocytes Absolute Auto 0.9 X10*3/uL (0.1-1.2); Monocytes Percent Auto 2.9 % (2-11); Neutrophils Absolute Auto 25.2 x10*3/uL (2.0-8.3); Neutrophils Percent Auto 84.1 % (45-73); Red Blood Count 3.11 X10*6/uL (4.20-5.50); Red Cell Distribution Width 17.7 % (11.0-16.0); SCAN SMEAR FLAG 1; White Blood Count 29.9 X10*3/uL (4.8-10.8)
[2022-10-22 06:15] LABS: Platelet Count 37 X10*3/uL (160-400)
[2022-10-22] MEDS: ondansetron HCL 4 MG/2 ML VIAL IVPUSH ×3 (06:38→19:25)
[2022-10-22] MEDS: Pantoprazole Sodium 40 MG/10 ML VIAL IVPUSH (06:38)
[2022-10-22] MEDS: Albuterol/Iprat 2.5/0.5MG 3 ML AMPUL.NEB INHALE ×3 (07:15→20:24)
[2022-10-22] MEDS: Potassium Chloride/H20 40 MEQ/100 ML PIGGYBACK 50 MEQ IV ×2 (08:35→22:07)
[2022-10-22] MEDS: lamoTRIgine 25 MG TABLET 150 MG PO ×2 (08:35→19:20)
[2022-10-22] MEDS: Thiamine HCL 100 MG TABLET PO (08:36)
[2022-10-22] MEDS: Potassium Chloride Packet 20 MEQ PACKET 40 MEQ PO (08:36)
[2022-10-22] MEDS: clonazePAM 1 MG TABLET PO ×3 (08:37→19:19)
--- NOTE | 2022-10-22 12:54 | PM.CCPN ---
Subjective Subjective Date of Service: 10/22/22 Interval History: 51-year-old lady with underlying history of AFib, bipolar disorder, prior gastric bypass, chronic hypotension on midodrine, prior UTIs, recent right femoral neck fracture status post surgical repair on 10/02/2022 admitted on 10/19/2022 from [facility] term rehab with septic shock secondary to Klebsiella bacteremia with source secondary to obstructing right renal calculus. Now status post stenting by Urology on 10/19/2022. Overnight with worsening hypoxia and leukocytosis despite improvement in diuresis. X-ray this a.m. with worsening patchy infiltrates. Critical Care Time (minutes): 60 Physical Exam Vital Signs: Vital Signs: Last Vital Signs Temp 99.7 F 10/22/22 12:00 Pulse 111 H 10/22/22 12:00 Resp 22 H 10/22/22 12:00 BP 104/77 10/22/22 12:00 Pulse Ox 93 10/22/22 12:00 O2 Del Method 10/22/22 12:00 O2 Flow Rate 15 10/22/22 12:00 FiO2 40 10/22/22 08:00 BMI result Body Mass Index 23.4 Const: General: no acute distress and lethargic ( arousable) Orientation/consciousness: lethargic ( arousable) Eyes: Sclerae: sclerae normal EOM: EOMs intact bilaterally Neck: Neck: Yes no lymphadenopathy, Yes trachea midline and Yes supple Resp: Effort & Inspection: normal respiratory effort and no respiratory distress Auscultation: crackles ( diffuse bilateral) Cardio: Rate: tachycardic Rhythm: regular rhythm Heart sounds: no gallops, no murmurs and no rubs GI: Palpation (GI): Soft to palpation and Other GI palpation findings present ( Nontender) Auscultation: normal bowel sounds Extrem: General: No clubbing, No cyanosis and Yes edema ( 1+ bilateral) Objective Data Labs CBC & Chem 7: 10/22/22 04:55 10/22/22 04:55 Labs: Laboratory Results - last 24 hr 10/21/22 10/22/22 10/22/22 19:08 04:55 04:55 WBC 29.9 H RBC 3.11 L Hgb 9.7 L Hct 28.6 L MCV 92.0 MCH 31.2 MCHC 33.9 RDW 17.7 H Plt Count 37 L MPV 11.6 Immature Gran % (Auto) 1.4 H Neut % (Auto) 84.1 H Lymph % (Auto) 10.8 L [place] % (Auto) 2.9 Eos % (Auto) 0.4 Baso % (Auto) 0.4 Lymph # (Auto) 3.2 [place] # (Auto) 0.9 Eos # (Auto) 0.1 Baso # (Auto) 0.1 Abs Immat Gran (auto) 0.41 H Absolute Neuts (auto) 25.2 H Absolute Nucleated RBC 0.000 Nucleated RBC % (auto) 0.0 VBG pH VBG pCO2 VBG pO2 VBG HCO3 VBG O2 Saturation VBG Base Excess Sodium 145 144 Potassium 3.1 L 3.4 Chloride 108 107 Carbon Dioxide 26 26 Anion Gap 14 14 BUN 17 H D 20 H Creatinine 0.70 0.78 Estim Creat Clear Calc 72.8 65.4 Estimated GFR > 60 > 60 Random Glucose 106 96 Calcium 8.7 8.7 Phosphorus 3.5 3.4 Magnesium 1.7 1.9 Albumin 3.2 L D 10/22/22 04:59 WBC RBC Hgb Hct MCV MCH MCHC RDW Plt Count MPV Immature Gran % (Auto) Neut % (Auto) Lymph % (Auto) [place] % (Auto) Eos % (Auto) Baso % (Auto) Lymph # (Auto) [place] # (Auto) Eos # (Auto) Baso # (Auto) Abs Immat Gran (auto) Absolute Neuts (auto) Absolute Nucleated RBC Nucleated RBC % (auto) VBG pH 7.37 VBG pCO2 41 VBG pO2 80 VBG HCO3 24 VBG O2 Saturation 92.0 VBG Base Excess -0.6 Sodium Potassium Chloride Carbon Dioxide Anion Gap BUN Creatinine Estim Creat Clear Calc Estimated GFR Random Glucose Calcium Phosphorus Magnesium Albumin Microbiology Microbiology Results: Microbiology 10/18/22 19:00 Blood - Venous Blood Culture - Final Klebsiella pneumoniae 10/18/22 18:50 Blood - Venous Blood Culture - Final Klebsiella pneumoniae 10/19/22 12:49 Urine Other - Kidney Right Urine Culture - Final Klebsiella pneumoniae 10/18/22 Unknown Urine clean catch - Urine hess top Urine Culture - Final Klebsiella pneumoniae Progress Note: A&P Assessment and plan (1) Acute respiratory failure with hypoxia: Status: Acute (2) Bacteremia due to Klebsiella pneumoniae: Status: Acute (3) Bipolar 1 disorder: Status: Acute (4) Afib: Status: Acute (5) Septic shock: Status: Acute (6) ELYSE (acute kidney injury): Status: Acute (7) Hydronephrosis with renal and ureteral calculus obstruction: Status: Acute Plan Assessment: 51-year-old lady admitted with septic shock with Klebsiella bacteremia secondary to obstructing renal calculus, now status post stenting Plan: Neuro: No acute issues. Cardiac: septic shock, continue to titrate off pressors as tolerated. Underlying AFib, anticoagulation held secondary to hematuria. Pulmonary: worsening hypoxemia disease by improvement diuresis. Chest x-ray abuse worsening infiltrates. Suspicion for development of secondary pneumonia from bacteremia. Will obtain CT chest for further evaluation. Renal: Acute renal failure secondary to obstructing renal calculus, now status post stenting, improving. Hematuria is improving. Non oliguric. Continue to monitor renal indices and urine output. Urology service care appreciated. Endo: No acute issues. GI: No acute issues. ID: Klebsiella bacteremia secondary to obstructing right renal calculus. Continue Levaquin. Heme/Onc: Thrombocytopenia, likely consumptive secondary to hematuria. Continue to monitor blood cell counts. Psych: No acute issues. underlying bipolar disorder and anxiety. Miscellaneous: No acute issues. Prophylaxis: intermittent pneumatic compression Diet: regular Critical care time spent: 45 minutes Quality Stroke Does the patient have a stroke diagnosis?: No VTE Prior VTE?: No VTE Risk Level:: Medical - moderate - high VTE Device Contraindication: N/A - Device Ordered VTE Drug Contraindication: N/A - Med Ordered
--- NOTE | 2022-10-22 16:01 | PC.NURSE ---
Shift eval: 7:45-3p - Patient alert, drowsy, vague. c/o of pain frequently - lower abd pain. Patient medicated w/ PRN dilaudid & PRN zofran for nausea. No vomiting. Patient also medicated w/ PRN clonazepam. Temp up to 100.2 - HR 130's, STDr Fajardo aware. After noon - O2sat under 90, unable to get out of 80's at 15 liters oxymask. Put patient on nonrebreather. Full bath & linen change done. Repos Q2H. Patient BP maintained with Levo - unable to wean. Lasix drip running as ordered - 10mg/hr. Urine output > 100/hr average. Taking in small amt PO fluids.
[2022-10-22] MEDS: Ketorolac Tromethamine 15 MG/ML VIAL 10 MG IVPUSH (17:13)
[2022-10-22] MEDS: Topiramate 25 MG TABLET 75 MG PO (19:20)
[2022-10-22] MEDS: levoFLOXacin/D5W 750 MG/150 ML PIGGYBACK 100 MG IV (19:21)
[2022-10-23] VITALS (26 sets, daily range): BP systolic 84–117; BP diastolic 57–76; PULSE 104–127; RESP 15–32; TEMP 37.3–37.7; O2SAT 88–95; BMI 24.1
[2022-10-23] MEDS: Ketorolac Tromethamine 15 MG/ML VIAL 10 MG IVPUSH ×2 (03:14→12:07)
[2022-10-23] MEDS: ondansetron HCL 4 MG/2 ML VIAL IVPUSH ×3 (03:14→21:01)
[2022-10-23] MEDS: clonazePAM 1 MG TABLET PO ×3 (03:15→21:01)
[2022-10-23] MEDS: HYDROmorphone HCl 0.5 MG/0.5 ML SYRINGE IVPUSH ×4 (04:32→21:00)
[2022-10-23 05:21] LABS: VBG HCO3 32 mmol/L (22-26); VBG pCO2 48 mmHg; VBG pH 7.43 (7.32-7.43); VBG pO2 49 mmHg
[2022-10-23 05:24] LABS: Basophils Absolute Auto 0.1 X10*3/uL (0.0-0.2); Basophils Percent Auto 0.5 % (0-2); Eosinophils Absolute Auto 0.1 X10*3/uL (0.0-0.4); Eosinophils Percent Auto 0.5 % (0-4); Hematocrit 28.8 % (37.0-47.0); Hemoglobin 9.8 g/dl (12.0-16.0); Imm Gran Abs Auto 0.91 X10*3/uL (0.00-0.03); Imm Gran Pct Auto 3.6 % (0.0-0.4); Lymphocytes Absolute Auto 2.5 X10*3/uL (1.2-4.9); Lymphocytes Percent Auto 9.8 % (20-40); MANUAL DIFF FLAG SCAN; Mean Corpuscular Hemoglobin 31.2 pg (27.0-33.0); Mean Corpuscular Volume 91.7 fL (80.0-98.0); Monocytes Absolute Auto 0.7 X10*3/uL (0.1-1.2); Monocytes Percent Auto 2.7 % (2-11); Neutrophils Absolute Auto 21.3 x10*3/uL (2.0-8.3); Neutrophils Percent Auto 82.9 % (45-73); Platelet Count 44 X10*3/uL (160-400); Red Blood Count 3.14 X10*6/uL (4.20-5.50); Red Cell Distribution Width 17.2 % (11.0-16.0); SCAN SMEAR FLAG 1; White Blood Count 25.6 X10*3/uL (4.8-10.8)
[2022-10-23] MEDS: Pantoprazole Sodium 40 MG/10 ML VIAL IVPUSH (05:32)
[2022-10-23 05:47] LABS: SLIDE REVIEW VERIFIED
[2022-10-23 05:49] LABS: Anion Gap 12 (12-20); Blood Urea Nitrogen 18 mg/dL (9-16); Calcium 8.6 mg/dL (8.4-10.2); Carbon Dioxide 32 mmol/L (22-29); Chloride 100 mmol/L (96-108); Creatinine Clr Calc Pharmacy 66.7; Estimated Glomerular Filt Rate > 60; Glucose Random 104 mg/dL (60-115); Magnesium 1.5 mg/dL (1.6-2.6); Phosphorus 3.1 mg/dL (2.7-4.5); Potassium 3.2 mmol/L (3.3-5.1); Sodium 141 mmol/L (135-145)
[2022-10-23 06:18] LABS: Venous Blood Gas Refer to POC result
--- NOTE | 2022-10-23 07:00 | CA_ITS ---
Transthoracic Echocardiogram Patient (Last, First, Middle): Sandrita Davalos, Gender: Female Date of : 1970 Age: 51 Procedure Date: 10/23/2022 Procedure Type: Transthoracic Echocardiogram Location: ICU Height: 149.86 cm Weight: 53.98 kg BSA: 1.48 m2 Heart Rate: bpm BP: 96 / 64 mmHg Mail List Librarian: RUBY Referring MD: Doug Fajardo MD Symptoms: hypoxia Study Quality: Fair, contrast used Conclusions: - Normal left ventricular cavity size. There is normal left ventricular wall thickness. The left ventricular systolic function is hyperdynamic. The visually estimated ejection fraction is >70%. - Moderately increased right ventricular cavity size. There is mild to moderately decreased right ventricular systolic function. - Moderately elevated right atrial pressure. Mild pulmonary hypertension is present. - Consider CTPA to rule out PE. Findings Procedure Information Contrast agent, definity, is being given per protocol without apparent complications. Left Ventricle Normal left ventricular cavity size. There is normal left ventricular wall thickness. The left ventricular systolic function is hyperdynamic. The visually estimated ejection fraction is >70%. There is a flattened septum in systole and diastole consistent with right ventricular pressure and volume overload. Diastolic function is normal for age. Right Ventricle Moderately increased right ventricular cavity size. There is mild to moderately decreased right ventricular systolic function. Atria Both atria are normal in size. Aortic Valve Normal aortic valve structure and function. There is no aortic valve stenosis. There is no aortic valve regurgitation. Mitral Valve The mitral valve appears normal. There is no mitral valve regurgitation. There is no mitral valve stenosis. Pulmonic Valve The pulmonic valve is likely normal. Tricuspid Valve The tricuspid valve was not well visualized. There is moderate tricuspid valve regurgitation. Moderately elevated right atrial pressure. Mild pulmonary hypertension is present. Great Vessels There is mild dilatation of the sinuses of Valsalva measuring 3.60 cm. The visualized portions of the pulmonary artery and branches are normal. Venous The inferior vena cava is dilated and collapses less than 50% with inspiration. Pericardium/Pleural There is no evidence of pericardial effusion. Prior Study Comparison No prior study available for comparison. Measurements 2D Linear Measurements IVSd: 0.63 0.6-0.9/0.6-1.0 cm LVIDd: 4.33 3.9-5.3/4.2-5.9 cm LVIDd Index: 2.93 2.4-3.2/2.2-3.1 cm/m2 LVIDs: 3.04 2.0-3.6 cm LVPWd: 0.68 0.7-1.1 cm LA Diam: 2.30 2.7-3.8/3.0-4.0 cm LAIDs Index: 1.55 1.5-2.3 cm/m2 LV Mass: 101.95 67-162/88-224 g LV Mass Index: 68.89 43-95/49-115 g/m2 LVOT Diam: 1.80 3.0+(-)1.3 cm 2D Systolic Function EF 4C: 79.80 >55% EF 2C: 69.20 >55% EF BiP: 74.80 >55% Mitral Valve MV Pk E: 0.80 MV PK A: 1.24 MV Decel Time: 134.00 E/A: 0.60 E'Lateral: 10.20 E'Medial: 6.53 E/E' Med: 12.20 E/E' Lat: 7.80 PHT: 39.00 MVA PHT: 5.64 Decel Mcclain: 5.96 Aortic Valve AoV Pk Lv: 1.41 AoV Mn Lv: 0.92 AoV VTI: 0.18 AoV Pk Grad: 8.00 Aov Mn Grad: 4.00 LARA Cont.VTI: 2.09 LVOT LVOT Pk Lv: 1.03 LVOT Mn Lv: 0.64 LVOT VTI: 0.15 LVOT Pk Grad: 4.00 LVOT Mn Grad: 2.00 LVOT Diam: 1.80 LVOT Area: 2.54 Diastolic Function MV Pk E: 0.80 MV Pk A: 1.24 E/A: 0.60 E'Medial: 6.53 E/E' Med: 12.20 E' Laterial: 10.20 E/E' Lat: 7.80 Right Ventricle TAPSE (mm): 13.80 TVS' Lv: 10.80 Tricuspid Valve TR Pk Lv: 2.65 TR Pk Grad: 28.00 RA Press: 8.00 RVSP: 36.00 Great Vessels Aorta Sinus of Valsalva: 3.60 2.0-3.5 cm Ao Asc: 2.90 2.1-3.4 cm Pulmonary Valve PV Pk Lv: 0.71 Peak PV Grad: 2.00 Updated in Other Vendor System with Status of Final Allan Calix MD electronically signed on 10/23/2022 1:56:17 PM with status of Final
[2022-10-23] MEDS: Albuterol/Iprat 2.5/0.5MG 3 ML AMPUL.NEB INHALE ×3 (07:24→19:33)
[2022-10-23] MEDS: Magnesium Sulfate/H2O 2 GM/50 ML PIGGYBACK IV (07:27)
[2022-10-23] MEDS: Thiamine HCL 100 MG TABLET PO (07:27)
[2022-10-23] MEDS: Potassium Chloride/H20 40 MEQ/100 ML PIGGYBACK 50 MEQ IV ×2 (07:27→19:50)
[2022-10-23] MEDS: Albumin Human 25 % 100 ML IV ×3 (08:59→21:07)
[2022-10-23] MEDS: Potassium Chloride Packet 20 MEQ PACKET 40 MEQ PO (09:00)
[2022-10-23] MEDS: lamoTRIgine 25 MG TABLET 150 MG PO ×2 (09:00→21:01)
--- NOTE | 2022-10-23 10:45 | MHC.CM.PN ---
Patient remains in ICU. Currently on NRB and receiving Lasix drip and Levophed drip. Patient was at [facility] for STR. Patient is vaccinated and boosted x3 for Covid. Continue to monitor for d/c needs.
--- NOTE | 2022-10-23 11:00 | PM.CCPN ---
Subjective Subjective Date of Service: 10/23/22 Interval History: 51-year-old lady with underlying history of AFib, bipolar disorder, prior gastric bypass, chronic hypotension on midodrine, prior UTIs, recent right femoral neck fracture status post surgical repair on 10/02/2022 admitted on 10/19/2022 from [facility] term rehab with septic shock secondary to Klebsiella bacteremia with source secondary to obstructing right renal calculus. Now status post stenting by Urology on 10/19/2022. Hospital course further complicated by acute hypoxic respiratory failure appears to be secondary to combination of pulmonary edema and secondary pneumonia. No events overnight. Oxygen requirements remain high. Critical Care Time (minutes): 45 Physical Exam Vital Signs: Vital Signs: Last Vital Signs Temp 99.5 F 10/23/22 09:00 Pulse 116 H 10/23/22 09:00 Resp 25 H 10/23/22 09:00 BP 99/72 10/23/22 09:00 Pulse Ox 95 10/23/22 09:00 O2 Del Method 10/23/22 09:00 O2 Flow Rate 100 10/23/22 08:00 FiO2 100 10/23/22 09:00 BMI result Body Mass Index 24.1 Const: General: no acute distress, alert and awake Eyes: Sclerae: sclerae normal EOM: EOMs intact bilaterally Neck: Neck: Yes no lymphadenopathy, Yes trachea midline and Yes supple Resp: Auscultation: crackles (Diffuse bilateral) Cardio: Rate: tachycardic Rhythm: regular rhythm Heart sounds: no gallops, no murmurs and no rubs GI: Palpation (GI): Soft to palpation and Other GI palpation findings present ( Nontender) Auscultation: normal bowel sounds Extrem: General: No clubbing, No cyanosis and Yes edema (Trace bilateral) Objective Data Labs CBC & Chem 7: 10/23/22 05:11 10/23/22 05:11 Labs: Laboratory Results - last 24 hr 10/23/22 10/23/22 10/23/22 05:11 05:11 05:16 WBC 25.6 H RBC 3.14 L Hgb 9.8 L Hct 28.8 L MCV 91.7 MCH 31.2 MCHC 34.0 RDW 17.2 H Plt Count 44 L MPV 13.0 H Immature Gran % (Auto) 3.6 H Neut % (Auto) 82.9 H Lymph % (Auto) 9.8 L [place] % (Auto) 2.7 Eos % (Auto) 0.5 Baso % (Auto) 0.5 Lymph # (Auto) 2.5 [place] # (Auto) 0.7 Eos # (Auto) 0.1 Baso # (Auto) 0.1 Abs Immat Gran (auto) 0.91 H Absolute Neuts (auto) 21.3 H Absolute Nucleated RBC 0.000 Nucleated RBC % (auto) 0.0 Smear Tech's Comments VERIFIED VBG pH 7.43 VBG pCO2 48 VBG pO2 49 VBG HCO3 32 H VBG O2 Saturation 74.0 VBG Base Excess 7.0 Sodium 141 Potassium 3.2 L Chloride 100 Carbon Dioxide 32 H Anion Gap 12 BUN 18 H Creatinine 0.75 Estim Creat Clear Calc 66.7 Estimated GFR > 60 Random Glucose 104 Calcium 8.6 Phosphorus 3.1 Magnesium 1.5 L Albumin 3.0 L Microbiology Microbiology Results: Microbiology 10/18/22 19:00 Blood - Venous Blood Culture - Final Klebsiella pneumoniae 10/18/22 18:50 Blood - Venous Blood Culture - Final Klebsiella pneumoniae 10/19/22 12:49 Urine Other - Kidney Right Urine Culture - Final Klebsiella pneumoniae 10/18/22 Unknown Urine clean catch - Urine hess top Urine Culture - Final Klebsiella pneumoniae Progress Note: A&P Assessment and plan (1) Acute respiratory failure with hypoxia: Status: Acute (2) Bacteremia due to Klebsiella pneumoniae: Status: Acute (3) ELYSE (acute kidney injury): Status: Acute (4) Septic shock: Status: Acute (5) Afib: Status: Acute (6) Hydronephrosis with renal and ureteral calculus obstruction: Status: Acute Plan Assessment: 51-year-old lady admitted with septic shock with Klebsiella bacteremia secondary to obstructing renal calculus, now status post stenting Plan: Neuro: No acute issues. Cardiac: septic shock, continue to titrate off pressors as tolerated. Underlying AFib, anticoagulation held secondary to hematuria. Pulmonary: Still with significant hypoxemia despite continuation of diuresis. CT chest with bilateral ground-glass infiltrates can be either infectious or pulmonary edema. Continue to titrate off supplemental oxygen as tolerated. Renal: Acute renal failure secondary to obstructing renal calculus, now status post stenting, improving with diuresis. Hematuria resolved. Non oliguric. Continue to monitor renal indices and urine output. Urology service care appreciated. Endo: No acute issues. GI: No acute issues. ID: Klebsiella bacteremia secondary to obstructing right renal calculus. Continue Levaquin. Also likely with development of secondary pneumonia 0 ARDS secondary to underlying bacteremia. Heme/Onc: Thrombocytopenia, likely consumptive secondary to hematuria. Continue to monitor blood cell counts. Psych: No acute issues. underlying bipolar disorder and anxiety. Miscellaneous: No acute issues. Prophylaxis: intermittent pneumatic compression Diet: regular Critical care time spent: 45 minutes Quality Stroke Does the patient have a stroke diagnosis?: No VTE Prior VTE?: No VTE Risk Level:: Medical - moderate - high VTE Device Contraindication: N/A - Device Ordered VTE Drug Contraindication: N/A - Med Ordered
[2022-10-23] MEDS: Furosemide 200 MG in 0.9 % Sodium Chloride 80 ML IVCONT ×2 (11:52→19:56)
[2022-10-23] MEDS: iohexoL 350 MG/ML 100 ML INFUS..BTL 65 ML IV (18:19)
--- NOTE | 2022-10-23 18:47 | PC.NURSE ---
Pt's family at bedside requesting thea, and this inspector automatic typewriter answered all questions. Pt overly anxious and reports right hip pain, PRN meds given as ordered (See MAR) with good effect. Nonrebreather on at 100% and satting in the low to mid 90s but desats to mid 80s anytime mask off, requires frequent redirection and explanation to keep the mask on. Pt diuresing well on lasix drip, ozuna intact, draining dark tiffany urine. P's US of lower legs were -loi for DVT and was later this shift brought down to Ctscan of chest. Pt currently resting in no acute distress. Pt has blanchable redness to coccyx, foamed dressing applied to coccyx and bony prominences, barrier cream applied. Dressing to central line at [facility] changed this shift. Repositioned every 2 hrs and as needed, wedges and Prevalon system in place, heel boots on, SCDs on b/l. Safety maintained.
[2022-10-23 19:11] LABS: Anion Gap 13 (12-20); Blood Urea Nitrogen 19 mg/dL (9-16); Calcium 8.5 mg/dL (8.4-10.2); Carbon Dioxide 30 mmol/L (22-29); Chloride 101 mmol/L (96-108); Creatinine Clr Calc Pharmacy 61.8; Estimated Glomerular Filt Rate > 60; Glucose Random 116 mg/dL (60-115); Magnesium 1.6 mg/dL (1.6-2.6); Potassium 3.3 mmol/L (3.3-5.1); Sodium 141 mmol/L (135-145)
[2022-10-23] MEDS: levoFLOXacin/D5W 750 MG/150 ML PIGGYBACK 100 MG IV (19:50)
[2022-10-23] MEDS: Magnesium Sulfate/D5W 1 GM/100 ML PIGGYBACK IV (19:50)
[2022-10-23] MEDS: Topiramate 25 MG TABLET 75 MG PO (21:01)
[2022-10-24] VITALS (37 sets, daily range): BP systolic 78–148; BP diastolic 54–97; PULSE 103–124; RESP 14–31; TEMP 37.5–38.8; O2SAT 85–98; BMI 23.7
[2022-10-24] MEDS: HYDROmorphone HCl 0.5 MG/0.5 ML SYRINGE IVPUSH ×4 (00:51→19:48)
[2022-10-24] MEDS: Albumin Human 25 % 100 ML IV (02:41)
[2022-10-24] MEDS: Ketorolac Tromethamine 15 MG/ML VIAL 10 MG IVPUSH (02:48)
[2022-10-24] MEDS: ondansetron HCL 4 MG/2 ML VIAL IVPUSH (02:48)
--- NOTE | 2022-10-24 04:52 | PC.NURSE ---
Pt on NRB at start of shift, sating high 80s to low 90s. At approximately 0100 pt desatting to low 80s with increased work of breathing, AEROSPACE STRESS ENGINEER and respiratory made aware. Pt placed on HF 100% 50L and NRB with some improvement. Approximately 0300 pt desating to low 80s again, HF was maxed out 100% 60L and NRB with no improvement. Pt was ultimately placed on CPAP 10 100%. Pt is now sating >95% on CPAP. Continuously asking for water, pt educated on the need to keep oxygen on at all times due to rapid desating. 0500 FiO2 decreased to 60%, per AEROSPACE STRESS ENGINEER pt has O2 goal of 88%-92%
[2022-10-24] MEDS: Pantoprazole Sodium 40 MG/10 ML VIAL IVPUSH (05:01)
[2022-10-24 05:35] LABS: VBG Base Excess 1.1 mmol/L; VBG HCO3 26 mmol/L (22-26); VBG pCO2 42 mmHg; VBG pH 7.39 (7.32-7.43); VBG pO2 42 mmHg
[2022-10-24 05:37] LABS: Venous Blood Gas Refer to POC result
[2022-10-24 06:06] LABS: Basophils Percent Auto 0.3 % (0-2); Eosinophils Absolute Auto 0.1 X10*3/uL (0.0-0.4); Hemoglobin 7.8 g/dl (12.0-16.0); PLT ABN DIST 1; SCAN SMEAR FLAG 1
[2022-10-24 06:08] LABS: Basophils Absolute Auto 0.1 X10*3/uL (0.0-0.2); Eosinophils Percent Auto 0.5 % (0-4); Hematocrit 23.4 % (37.0-47.0); Imm Gran Abs Auto 0.36 X10*3/uL (0.00-0.03); Imm Gran Pct Auto 2.4 % (0.0-0.4); Lymphocytes Absolute Auto 2.6 X10*3/uL (1.2-4.9); Lymphocytes Percent Auto 17.5 % (20-40); MANUAL DIFF FLAG SCAN; Mean Corpuscular HGB Conc 33.3 g/dl (31.0-35.0); Mean Corpuscular Hemoglobin 31.3 pg (27.0-33.0); Mean Platelet Volume 13.2 fL (9.4-12.3); Monocytes Absolute Auto 0.3 X10*3/uL (0.1-1.2); Monocytes Percent Auto 2.2 % (2-11); Neutrophils Absolute Auto 11.3 x10*3/uL (2.0-8.3); Neutrophils Percent Auto 77.1 % (45-73); Red Blood Count 2.49 X10*6/uL (4.20-5.50); Red Cell Distribution Width 17.1 % (11.0-16.0); White Blood Count 14.7 X10*3/uL (4.8-10.8)
[2022-10-24 06:13] LABS: Platelet Count 39 X10*3/uL (160-400)
[2022-10-24 06:26] LABS: Albumin Level 3.9 g/dL (3.5-5.0); Anion Gap 19 (12-20); Blood Urea Nitrogen 20 mg/dL (9-16); Calcium 9.2 mg/dL (8.4-10.2); Carbon Dioxide 28 mmol/L (22-29); Chloride 100 mmol/L (96-108); Creatinine Clr Calc Pharmacy 55.8; Estimated Glomerular Filt Rate > 60; Glucose Random 81 mg/dL (60-115); Magnesium 2.1 mg/dL (1.6-2.6); Phosphorus 2.9 mg/dL (2.7-4.5); Sodium 143 mmol/L (135-145)
[2022-10-24 06:40] LABS: SLIDE REVIEW VERIFIED
[2022-10-24 08:48] LABS: Alanine Aminotransferase 25 U/L (0-31); Alkaline Phosphatase 138 U/L (39-117); Aspartate Amino Transferase 31 U/L (5-31); Bilirubin Direct 5.4 mg/dL (0.0-0.5); Bilirubin Total 7.8 mg/dL (0.0-1.0); Total Protein 5.2 g/dL (6.5-8.0)
[2022-10-24] MEDS: Albuterol/Iprat 2.5/0.5MG 3 ML AMPUL.NEB INHALE ×3 (08:50→20:28)
[2022-10-24] MEDS: Thiamine HCL 100 MG TABLET PO (10:13)
[2022-10-24] MEDS: clonazePAM 1 MG TABLET PO (10:13)
[2022-10-24] MEDS: lamoTRIgine 25 MG TABLET 150 MG PO ×2 (10:13→22:31)
[2022-10-24] MEDS: dexmedeTOMIDidine HCL/NS 400 MCG/100 ML INFUS..BTL 13.33 MCG IVCONT (10:27)
--- NOTE | 2022-10-24 10:52 | PM.CCPN ---
Subjective Subjective Date of Service: 10/24/22 Interval History: 51-year-old lady with underlying history of AFib, bipolar disorder, prior gastric bypass, cholecystectomy. chronic hypotension on midodrine, prior UTIs, recent right femoral neck fracture status post surgical repair on 10/02/2022 admitted on 10/19/2022 from [facility] short term rehab with septic shock secondary to Klebsiella bacteremia with source secondary to obstructing right renal calculus. Now status post stenting by Urology on 10/19/2022. Hospital course further complicated by acute hypoxic respiratory failure appears to be secondary to combination of pulmonary edema and secondary pneumonia. No evidence of pulmonary embolism. 2D echocardiogram with subacute right-sided failure. No events overnight. Oxygen requirements continue to escalate despite diuresis. Now with worsening jaundice and hyperbilirubinemia. Critical Care Time (minutes): 60 Physical Exam Vital Signs: Vital Signs: Last Vital Signs Temp 100.6 F H 10/24/22 10:00 Pulse 120 H 10/24/22 10:00 Resp 18 10/24/22 10:00 BP 93/70 10/24/22 10:00 Pulse Ox 94 10/24/22 10:00 O2 Del Method 10/24/22 10:00 O2 Flow Rate 10 10/24/22 09:00 FiO2 60 10/24/22 10:00 BMI result Body Mass Index 23.7 Const: General: no acute distress, alert, awake and anxious Eyes: Sclerae: sclerae normal EOM: EOMs intact bilaterally Neck: Neck: Yes no lymphadenopathy, Yes trachea midline and Yes supple Resp: Effort & Inspection: normal respiratory effort (On CPAP) and no respiratory distress Auscultation: crackles (Diffuse bilateral) Cardio: Rate: tachycardic Rhythm: regular rhythm Heart sounds: no gallops, no murmurs and no rubs GI: Palpation (GI): Soft to palpation and Other GI palpation findings present ( Nontender) Auscultation: normal bowel sounds Extrem: General: Yes no pedal edema, No clubbing and No cyanosis Objective Data Labs CBC & Chem 7: 10/24/22 05:20 10/24/22 05:20 Labs: Laboratory Results - last 24 hr 10/23/22 10/24/22 10/24/22 18:48 05:20 05:20 WBC 14.7 H RBC 2.49 L D Hgb 7.8 L D Hct 23.4 L MCV 94.0 MCH 31.3 MCHC 33.3 RDW 17.1 H Plt Count 39 L MPV 13.2 H Immature Gran % (Auto) 2.4 H Neut % (Auto) 77.1 H Lymph % (Auto) 17.5 L [place] % (Auto) 2.2 Eos % (Auto) 0.5 Baso % (Auto) 0.3 Lymph # (Auto) 2.6 [place] # (Auto) 0.3 Eos # (Auto) 0.1 Baso # (Auto) 0.1 Abs Immat Gran (auto) 0.36 H Absolute Neuts (auto) 11.3 H Absolute Nucleated RBC 0.000 Nucleated RBC % (auto) 0.0 Smear Tech's Comments VERIFIED VBG pH VBG pCO2 VBG pO2 VBG HCO3 VBG O2 Saturation VBG Base Excess Sodium 141 143 Potassium 3.3 4.0 D Chloride 101 100 Carbon Dioxide 30 H 28 Anion Gap 13 19 BUN 19 H 20 H Creatinine 0.81 0.89 Estim Creat Clear Calc 61.8 55.8 Estimated GFR > 60 > 60 Random Glucose 116 H 81 Calcium 8.5 9.2 D Phosphorus 2.9 Magnesium 1.6 2.1 Total Bilirubin 7.8 H Direct Bilirubin 5.4 H AST 31 ALT 25 Alkaline Phosphatase 138 H Total Protein 5.2 L Albumin 3.9 10/24/22 05:29 WBC RBC Hgb Hct MCV MCH MCHC RDW Plt Count MPV Immature Gran % (Auto) Neut % (Auto) Lymph % (Auto) [place] % (Auto) Eos % (Auto) Baso % (Auto) Lymph # (Auto) [place] # (Auto) Eos # (Auto) Baso # (Auto) Abs Immat Gran (auto) Absolute Neuts (auto) Absolute Nucleated RBC Nucleated RBC % (auto) Smear Tech's Comments VBG pH 7.39 VBG pCO2 42 VBG pO2 42 VBG HCO3 26 VBG O2 Saturation 62.0 VBG Base Excess 1.1 Sodium Potassium Chloride Carbon Dioxide Anion Gap BUN Creatinine Estim Creat Clear Calc Estimated GFR Random Glucose Calcium Phosphorus Magnesium Total Bilirubin Direct Bilirubin AST ALT Alkaline Phosphatase Total Protein Albumin Microbiology Microbiology Results: Microbiology 10/18/22 19:00 Blood - Venous Blood Culture - Final Klebsiella pneumoniae 10/18/22 18:50 Blood - Venous Blood Culture - Final Klebsiella pneumoniae 10/19/22 12:49 Urine Other - Kidney Right Urine Culture - Final Klebsiella pneumoniae 10/18/22 Unknown Urine clean catch - Urine hess top Urine Culture - Final Klebsiella pneumoniae Progress Note: A&P Assessment and plan (1) Hyperbilirubinemia: Status: Acute (2) Acute respiratory failure with hypoxia: Status: Acute (3) Bacteremia due to Klebsiella pneumoniae: Status: Acute (4) Bipolar 1 disorder: Status: Acute (5) Afib: Status: Acute (6) Pneumonia: Status: Acute (7) Right heart failure: Status: Acute Plan Assessment: 51-year-old lady admitted with septic shock with Klebsiella bacteremia secondary to obstructing renal calculus, now status post stenting Plan: Neuro: No acute issues. Cardiac: septic shock, continue to titrate off pressors as tolerated. Underlying AFib, anticoagulation held secondary to hematuria. Subacute right heart failure. Diuresis held secondary to soft blood pressures. Pulmonary: Still with significant hypoxemia despite continuation of diuresis. CT chest with bilateral ground-glass infiltrates can be either infectious or pulmonary edema. Continue to titrate off supplemental oxygen as tolerated. Component of pulmonary hypertension, will start on empiric sildenafil. Renal: Acute renal failure secondary to obstructing renal calculus, now status post stenting, resolved. Hematuria resolved. Non oliguric. Continue to monitor renal indices and urine output. Urology service care appreciated. Endo: No acute issues. GI: Hyperbilirubinemia and jaundice on the background of cholecystectomy. Will obtain abdominal ultrasound. ID: Klebsiella bacteremia secondary to obstructing right renal calculus. Continue Levaquin. Also likely with development of secondary pneumonia or ARDS secondary to underlying bacteremia. Heme/Onc: Thrombocytopenia, likely consumptive secondary to hematuria. Continue to monitor blood cell counts. No evidence of pulmonary embolism on CT angiogram. Psych: No acute issues. underlying bipolar disorder and anxiety. Miscellaneous: No acute issues. Prophylaxis: intermittent pneumatic compression Diet: regular Critical care time spent: 60 minutes Quality Stroke Does the patient have a stroke diagnosis?: No VTE Prior VTE?: No VTE Risk Level:: Medical - moderate - high VTE Device Contraindication: N/A - Device Ordered VTE Drug Contraindication: N/A - Med Ordered
[2022-10-24] MEDS: Sildenafil Citrate 20 MG TABLET PO ×3 (11:43→22:32)
[2022-10-24] MEDS: dexmedeTOMIDidine HCL/NS 400 MCG/100 ML INFUS..BTL 17.32 MCG IVCONT ×2 (16:03→21:47)
[2022-10-24] MEDS: levoFLOXacin/D5W 750 MG/150 ML PIGGYBACK 100 MG IV (21:47)
[2022-10-24] MEDS: Topiramate 25 MG TABLET 75 MG PO (22:32)
[2022-10-25] VITALS (45 sets, daily range): BP systolic 73–126; BP diastolic 49–91; PULSE 84–114; RESP 15–29; TEMP 36.5–38.9; O2SAT 88–97; BMI 24.2
[2022-10-25] MEDS: HYDROmorphone HCl 0.5 MG/0.5 ML SYRINGE IVPUSH ×4 (01:39→19:55)
[2022-10-25] MEDS: dexmedeTOMIDidine HCL/NS 400 MCG/100 ML INFUS..BTL 19.99 MCG IVCONT ×2 (02:30→07:24)
[2022-10-25 05:38] LABS: VBG Base Excess 3.7 mmol/L; VBG HCO3 27 mmol/L (22-26); VBG pCO2 40 mmHg; VBG pH 7.44 (7.32-7.43); VBG pO2 39 mmHg
[2022-10-25] MEDS: Pantoprazole Sodium 40 MG/10 ML VIAL IVPUSH (05:43)
[2022-10-25 06:03] LABS: Basophils Absolute Auto 0.1 X10*3/uL (0.0-0.2); Basophils Percent Auto 0.4 % (0-2); Eosinophils Absolute Auto 0.1 X10*3/uL (0.0-0.4); Eosinophils Percent Auto 0.4 % (0-4); Hematocrit 22.5 % (37.0-47.0); Hemoglobin 7.6 g/dl (12.0-16.0); Imm Gran Abs Auto 0.59 X10*3/uL (0.00-0.03); Imm Gran Pct Auto 4.3 % (0.0-0.4); Lymphocytes Absolute Auto 2.4 X10*3/uL (1.2-4.9); Lymphocytes Percent Auto 17.1 % (20-40); MANUAL DIFF FLAG SCAN; Mean Corpuscular HGB Conc 33.8 g/dl (31.0-35.0); Mean Corpuscular Volume 91.8 fL (80.0-98.0); Monocytes Absolute Auto 0.3 X10*3/uL (0.1-1.2); Monocytes Percent Auto 2.4 % (2-11); Neutrophils Absolute Auto 10.5 x10*3/uL (2.0-8.3); Neutrophils Percent Auto 75.4 % (45-73); Red Blood Count 2.45 X10*6/uL (4.20-5.50); Red Cell Distribution Width 16.8 % (11.0-16.0); SCAN SMEAR FLAG 1; White Blood Count 13.9 X10*3/uL (4.8-10.8)
[2022-10-25 06:04] LABS: Platelet Count 77 X10*3/uL (160-400)
[2022-10-25 06:27] LABS: Albumin Level 3.5 g/dL (3.5-5.0); Anion Gap 17 (12-20); Blood Urea Nitrogen 23 mg/dL (9-16); Calcium 8.8 mg/dL (8.4-10.2); Carbon Dioxide 30 mmol/L (22-29); Chloride 104 mmol/L (96-108); Creatinine Clr Calc Pharmacy 60.4; Estimated Glomerular Filt Rate > 60; Glucose Random 97 mg/dL (60-115); Magnesium 1.9 mg/dL (1.6-2.6); Phosphorus 2.8 mg/dL (2.7-4.5); Potassium 3.6 mmol/L (3.3-5.1); Sodium 147 mmol/L (135-145)
[2022-10-25 06:52] LABS: SLIDE REVIEW VERIFIED
[2022-10-25] MEDS: Albuterol/Iprat 2.5/0.5MG 3 ML AMPUL.NEB INHALE ×3 (08:15→20:58)
[2022-10-25 08:51] LABS: Venous Blood Gas Refer to POC result
[2022-10-25] MEDS: Haloperidol Lactate 5 MG/ML VIAL IVPUSH (10:24)
--- NOTE | 2022-10-25 11:31 | P.PNCC_ITS ---
Subjective Subjective Date of Service: 10/25/22 Interval History: 51-year-old lady with underlying history of AFib, bipolar disorder, prior gastric bypass, cholecystectomy. chronic hypotension on midodrine, prior UTIs, recent right femoral neck fracture status post surgical repair on 10/02/2022 admitted on 10/19/2022 from [facility] short term rehab with septic shock secondary to Klebsiella bacteremia with source secondary to obstructing right renal calculus. Now status post stenting by Urology on 10/19/2022. Hospital course further complicated by acute hypoxic respiratory failure appears to be secondary to combination of pulmonary edema and secondary pneumonia. No garland dence of pulmonary embolism. 2D echocardiogram with subacute right-sided failure. No events overnight. Oxygen and vasopressor requirements are slowly improving. Critical Care Time (minutes): 45 Physical Exam Vital Signs: Vital Signs: Last Vital Signs Temp 102.0 F H 10/25/22 08:00 Pulse 97 10/25/22 11:00 Resp 22 H 10/25/22 11:00 BP 101/69 10/25/22 11:00 Pulse Ox 91 L 10/25/22 11:00 O2 Del Method 10/25/22 11:00 O2 Flow Rate 10 10/24/22 09:00 FiO2 65 10/25/22 11:00 BMI result Body Mass Index 24.2 Const: General: no acute distress, alert and awake Eyes: Sclerae: sclerae normal EOM: EOMs intact bilaterally Neck: Neck: Yes no lymphadenopathy, Yes trachea midline and Yes supple Resp: Effort & Inspection: normal respiratory effort ( on CPAP) and no respiratory distress Auscultation: crackles ( diffuse bilateral) Cardio: Rate: regular rate Rhythm: regular rhythm Heart sounds: no gallops, no murmurs and no rubs GI: Palpation (GI): Soft to palpation and Other GI palpation findings present ( Nontender) Auscultation: normal bowel sounds Extrem: General: No clubbing, No cyanosis and Yes edema ( trace bilateral) Objective Data Labs CBC & Chem 7: 10/25/22 05:23 10/25/22 05:23 Labs: Laboratory Results - last 24 hr 10/25/22 10/25/22 10/25/22 05:23 05:23 05:32 WBC 13.9 H RBC 2.45 L Hgb 7.6 L Hct 22.5 L MCV 91.8 MCH 31.0 MCHC 33.8 RDW 16.8 H Plt Count 77 L D MPV 12.0 Immature Gran % (Auto) 4.3 H Neut % (Auto) 75.4 H Lymph % (Auto) 17.1 L [place] % (Auto) 2.4 Eos % (Auto) 0.4 Baso % (Auto) 0.4 Lymph # (Auto) 2.4 [place] # (Auto) 0.3 Eos # (Auto) 0.1 Baso # (Auto) 0.1 Abs Immat Gran (auto) 0.59 H Absolute Neuts (auto) 10.5 H Absolute Nucleated RBC 0.000 Nucleated RBC % (auto) 0.0 Smear Tech's Comments VERIFIED VBG pH 7.44 H VBG pCO2 40 VBG pO2 39 VBG HCO3 27 H VBG O2 Saturation 60.0 VBG Base Excess 3.7 Sodium 147 H Potassium 3.6 Chloride 104 Carbon Dioxide 30 H Anion Gap 17 BUN 23 H Creatinine 0.83 Estim Creat Clear Calc 60.4 Estimated GFR > 60 Random Glucose 97 Calcium 8.8 Phosphorus 2.8 Magnesium 1.9 Albumin 3.5 Microbiology Microbiology Results: Microbiology 10/18/22 19:00 Blood - Venous Blood Culture - Final Klebsiella pneumoniae 10/18/22 18:50 Blood - Venous Blood Culture - Final Klebsiella pneumoniae 10/19/22 12:49 Urine Other - Kidney Right Urine Culture - Final Klebsiella pneumoniae 10/18/22 Unknown Urine clean catch - Urine hess top Urine Culture - Final Klebsiella pneumoniae Progress Note: A&P Assessment and plan (1) Right heart failure: Status: Acute (2) Pneumonia: Status: Acute (3) Hyperbilirubinemia: Status: Acute (4) Acute respiratory failure with hypoxia: Status: Acute (5) Bacteremia due to Klebsiella pneumoniae: Status: Acute (6) Bipolar 1 disorder: Status: Acute (7) ELYSE (acute kidney injury): Status: Acute Plan Assessment: 51-year-old lady admitted with septic shock with Klebsiella bacteremia secondary to obstructing renal calculus, now status post stenting with hospital course complicated by acute hypoxic respiratory failure Plan: Neuro: No acute issues. Cardiac: septic shock, continue to titrate off pressors as tolerated. Underlying AFib, anticoagulation held secondary to hematuria. Subacute right heart failure. Diuresis held secondary to soft blood pressures. Pulmonary: Still with significant hypoxemia despite continuation of diuresis. CT chest with bilateral ground-glass infiltrates can be either infectious or pulmonary edema. Continue to titrate off supplemental oxygen as tolerated. Component of pulmonary hypertension, continue on empiric sildenafil. Renal: Acute renal failure secondary to obstructing renal calculus, now status post stenting, resolved. Hematuria resolved. Non oliguric. Continue to monitor renal indices and urine output. Urology service care appreciated. Endo: No acute issues. GI: Hyperbilirubinemia and jaundice on the background of cholecystectomy, abdominal ultrasound with evidence of cholestasis. ID: Klebsiella bacteremia secondary to obstructing right renal calculus. Continue Levaquin. Also likely with development of secondary pneumonia or ARDS secondary to underlying bacteremia. Heme/Onc: Thrombocytopenia, likely consumptive secondary to hematuria. Continue to monitor blood cell counts. No evidence of pulmonary embolism on CT angiogram. Psych: No acute issues. underlying bipolar disorder and anxiety. Miscellaneous: No acute issues. Prophylaxis: intermittent pneumatic compression Diet: regular Critical care time spent: 45 minutes Quality Stroke Does the patient have a stroke diagnosis?: No VTE Prior VTE?: No VTE Risk Level:: Medical - moderate - high VTE Device Contraindication: N/A - Device Ordered VTE Drug Contraindication: N/A - Med Ordered
[2022-10-25] MEDS: ondansetron HCL 4 MG/2 ML VIAL IVPUSH (14:31)
[2022-10-25] MEDS: levoFLOXacin/D5W 750 MG/150 ML PIGGYBACK 100 MG IV (19:53)
[2022-10-25] MEDS: Topiramate 25 MG TABLET 75 MG PO (19:54)
[2022-10-25] MEDS: clonazePAM 1 MG TABLET PO (19:54)
[2022-10-25] MEDS: Sildenafil Citrate 20 MG TABLET PO (19:54)
[2022-10-25] MEDS: lamoTRIgine 100 MG TABLET 150 MG PO (22:35)
[2022-10-25 23:51] LABS: Venous Blood Gas Refer to POC result
[2022-10-25 23:52] LABS: VBG Base Excess 3.8 mmol/L; VBG HCO3 28 mmol/L (22-26); VBG pCO2 45 mmHg; VBG pH 7.41 (7.32-7.43); VBG pO2 53 mmHg
[2022-10-25 23:57] LABS: Anion Gap 19 (12-20); Blood Urea Nitrogen 22 mg/dL (9-16); Calcium 8.7 mg/dL (8.4-10.2); Carbon Dioxide 27 mmol/L (22-29); Creatinine Clr Calc Pharmacy 60.4; Estimated Glomerular Filt Rate > 60; Glucose Random 179 mg/dL (60-115); Phosphorus 2.1 mg/dL (2.7-4.5)
[2022-10-25 23:59] LABS: Chloride 105 mmol/L (96-108); Potassium 3.3 mmol/L (3.3-5.1); Sodium 148 mmol/L (135-145)
[2022-10-26] VITALS (37 sets, daily range): BP systolic 84–120; BP diastolic 55–83; PULSE 97–129; RESP 17–36; TEMP 36.7–38; O2SAT 85–96
[2022-10-26] MEDS: Albumin Human 25 % 100 ML IV (00:23)
[2022-10-26] MEDS: Potassium Phosphate/NS 15 MMOL/250 ML PLAST..BAG 62.5 MMOL IV ×2 (00:23→07:40)
[2022-10-26] MEDS: Haloperidol Lactate 5 MG/ML VIAL IVPUSH (02:16)
[2022-10-26] MEDS: HYDROmorphone HCl 0.5 MG/0.5 ML SYRINGE IVPUSH ×3 (03:53→16:13)
[2022-10-26 05:44] LABS: VBG Base Excess 6.1 mmol/L; VBG HCO3 30 mmol/L (22-26); VBG pCO2 41 mmHg; VBG pH 7.46 (7.32-7.43); VBG pO2 48 mmHg
[2022-10-26 05:58] LABS: Hematocrit 21.3 % (37.0-47.0); Hemoglobin 7.4 g/dl (12.0-16.0); Mean Corpuscular HGB Conc 34.7 g/dl (31.0-35.0); Mean Corpuscular Volume 92.2 fL (80.0-98.0); Mean Platelet Volume 11.4 fL (9.4-12.3); Platelet Count 130 X10*3/uL (160-400); Red Blood Count 2.31 X10*6/uL (4.20-5.50); Red Cell Distribution Width 17.3 % (11.0-16.0); White Blood Count 19.6 X10*3/uL (4.8-10.8)
[2022-10-26 05:59] LABS: NRBC Pct Auto 1.2 /100WBC (0.0-0.2)
[2022-10-26 06:23] LABS: Venous Blood Gas Refer to POC result
[2022-10-26 06:28] LABS: Band Neutrophils Percent 4 % (3-5); Basophilic Stippling 1+ (0-2) /OIF; Large Platelet PRESENT; Lymphocytes Absolute Manual 2.4 X10*3/uL (1.2-4.9); Lymphocytes Percent Manual 12 % (20-40); Macrocytosis 1+ (5-14) /OIF; Microcytosis 1+ (5-14) /OIF; Monocytes Absolute Manual 0.4 X10*3/uL (0.1-1.2); Monocytes Percent Manual 2 % (2-11); Myelocytes Absolute 0.4 X10*/uL; Myelocytes Percent 2 %; Neutrophils Absolute Manual 16.5 X10*3/uL (2.0-8.3); Neutrophils Percent Manual 80 % (45-73); Nucleated Red Blood Cells 2 /100WBC (0-0); Platelet Estimate SLIGHTLY DECREASED (NORMAL); Platelet Morphology Comment NORMAL; RBC Morphology NOTED; Schistocytes 1+ (0-2) /OIF; Smudge Cells PRESENT; Target Cells 2+ (15-30) /OIF
[2022-10-26 06:33] LABS: Albumin Level 3.6 g/dL (3.5-5.0); Anion Gap 7 (12-20); Blood Urea Nitrogen 24 mg/dL (9-16); Calcium 8.9 mg/dL (8.4-10.2); Carbon Dioxide 31 mmol/L (22-29); Chloride 107 mmol/L (96-108); Creatinine Clr Calc Pharmacy 65.9; Estimated Glomerular Filt Rate > 60; Glucose Random 127 mg/dL (60-115); Magnesium 1.7 mg/dL (1.6-2.6); Phosphorus 2.4 mg/dL (2.7-4.5); Sodium 142 mmol/L (135-145)
--- NOTE | 2022-10-26 06:35 | PC.NURSE ---
Upon initial assessment at 1900. Pt A&Ox2, vague, demanding, requires frequent redirection. Haldol 5 mg IVP x1 with given with some effect. ?aspirating with oral intake, PLAN COORDINATOR aware. Temp up to 100.0 via core probe. NSR/ST on tele, HR 90-110s. Levophed ordered and titrated to maintain MAP > 65, PLAN COORDINATOR aware of higher pressor requirement. VBG/BMP/phosphorus level drawn, given total of albumin 100 mL IV x1, 15 mmol kphos IV x1. Switched between CPAP/HFNC to maintain SpO2 > 92. Frequent mouth care given. Tobar in place, UOP approx 30 ml/hr. No BM. Full CHG bath given this AM. Repositioned q2hr. Bed locked/lowest position, call oshea in reach.
[2022-10-26] MEDS: Thiamine HCL 100 MG TABLET PO (07:21)
[2022-10-26] MEDS: lamoTRIgine 100 MG TABLET 150 MG PO ×2 (07:22→20:17)
[2022-10-26] MEDS: Sildenafil Citrate 20 MG TABLET PO ×2 (07:22→20:17)
[2022-10-26] MEDS: Potassium Chloride/H20 40 MEQ/100 ML PIGGYBACK 50 MEQ IV (07:42)
[2022-10-26] MEDS: clonazePAM 1 MG TABLET PO (07:48)
[2022-10-26] MEDS: Albuterol/Iprat 2.5/0.5MG 3 ML AMPUL.NEB INHALE (08:54)
[2022-10-26] MEDS: Digoxin 0.5 MG/2 ML AMPUL 0.25 MG IVPUSH (10:19)
[2022-10-26] MEDS: Piperacillin Sodium/Tazobactam 3.375 GM in 0.9 % Sodium Chloride 50 ML IV ×3 (10:25→21:10)
[2022-10-26] MEDS: Magnesium Sulfate/H2O 2 GM/50 ML PIGGYBACK IV (10:30)
--- NOTE | 2022-10-26 12:11 | P.PNCC_ITS ---
Subjective Subjective Date of Service: 10/26/22 Interval History: ICU day 8 for septic shock obstructive uropathy, gram-negative bacteremia, acute respiratory failure with hypoxia 51-year-old lady with underlying history of AFib, bipolar disorder, prior gastric bypass, cholecystectomy. chronic hypotension on midodrine, prior UTIs, recent right femoral neck fracture status post surgical repair on 10/02/2022 admitted on 10/19/2022 from [facility] short term rehab with septic shock secondary to Klebsiella bacteremia with source secondary to obstructing right renal calculus. Now status post stenting by Urology on 10/19/2022. Hospital course further complicated by acute hypoxic respiratory failure appears to be secondary to combination of pulmonary edema and secondary pneumonia. No evidence of pulmonary embolism. 2D echocardiogram with subacute right-sided failure. No events overnight. continues to require significant vasopressor and supplemental oxygen support. Critical Care Time (minutes): 45 Physical Exam Vital Signs: Vital Signs: Last Vital Signs Temp 99.1 F 10/26/22 12:00 Pulse 105 H 10/26/22 12:00 Resp 20 10/26/22 12:00 BP 117/80 10/26/22 12:00 Pulse Ox 90 L 10/26/22 12:00 O2 Del Method 10/26/22 12:00 O2 Flow Rate 60 10/26/22 08:00 FiO2 70 10/26/22 12:00 BMI result Body Mass Index 24.2 Const: General: no acute distress, alert and awake Eyes: Sclerae: sclerae normal EOM: EOMs intact bilaterally Neck: Neck: Yes no lymphadenopathy, Yes trachea midline and Yes supple Resp: Effort & Inspection: normal respiratory effort ( on CPAP) and no respiratory distress Auscultation: crackles ( bilateral) Cardio: Rate: tachycardic Rhythm: regular rhythm Heart sounds: no gallops, no murmurs and no rubs GI: Palpation (GI): Soft to palpation and Other GI palpation findings present ( Nontender) Auscultation: normal bowel sounds Extrem: General: Yes no pedal edema, No clubbing and No cyanosis Objective Data Labs CBC & Chem 7: 10/26/22 05:34 10/26/22 05:36 Labs: Laboratory Results - last 24 hr 10/25/22 10/25/22 10/26/22 23:25 23:32 05:34 WBC 19.6 H RBC 2.31 L Hgb 7.4 L Hct 21.3 L MCV 92.2 MCH 32.0 MCHC 34.7 RDW 17.3 H Plt Count 130 L D MPV 11.4 Immature Gran % (Auto) Cancelled Neut % (Auto) Cancelled Lymph % (Auto) Cancelled [place] % (Auto) Cancelled Eos % (Auto) Cancelled Baso % (Auto) Cancelled Lymph # (Auto) Cancelled [place] # (Auto) Cancelled Eos # (Auto) Cancelled Baso # (Auto) Cancelled Abs Immat Gran (auto) Cancelled Absolute Neuts (auto) Cancelled Absolute Nucleated RBC 0.230 H Nucleated RBC % (auto) 1.2 H Neutrophils % (Manual) 80 H Band Neutrophils % 4 Lymphocytes % (Manual) 12 L Monocytes % (Manual) 2 Myelocytes % 2 Abs Neuts (Manual) 16.5 H Lymphocytes # (Manual) 2.4 Monocytes # (Manual) 0.4 Myelocytes # 0.4 Nucleated RBCs 2 H Smudge Cells PRESENT Platelet Estimate SLIGHTLY DECREASED Large Platelets PRESENT Plt Morphology Comment NORMAL RBC Morphology NOTED Basophilic Stippling 1+ (0-2) Microcytosis 1+ (5-14) Macrocytosis 1+ (5-14) Target Cells 2+ (15-30) Schistocytes 1+ (0-2) VBG pH 7.41 VBG pCO2 45 VBG pO2 53 VBG HCO3 28 H VBG O2 Saturation 78.0 VBG Base Excess 3.8 Sodium 148 H Potassium 3.3 Chloride 105 Carbon Dioxide 27 Anion Gap 19 BUN 22 H Creatinine 0.83 Estim Creat Clear Calc 60.4 Estimated GFR > 60 Random Glucose 179 H Calcium 8.7 Phosphorus 2.1 L Magnesium Albumin 10/26/22 10/26/22 05:36 05:38 WBC RBC Hgb Hct MCV MCH MCHC RDW Plt Count MPV Immature Gran % (Auto) Neut % (Auto) Lymph % (Auto) [place] % (Auto) Eos % (Auto) Baso % (Auto) Lymph # (Auto) [place] # (Auto) Eos # (Auto) Baso # (Auto) Abs Immat Gran (auto) Absolute Neuts (auto) Absolute Nucleated RBC Nucleated RBC % (auto) Neutrophils % (Manual) Band Neutrophils % Lymphocytes % (Manual) Monocytes % (Manual) Myelocytes % Abs Neuts (Manual) Lymphocytes # (Manual) Monocytes # (Manual) Myelocytes # Nucleated RBCs Smudge Cells Platelet Estimate Large Platelets Plt Morphology Comment RBC Morphology Basophilic Stippling Microcytosis Macrocytosis Target Cells Schistocytes VBG pH 7.46 H VBG pCO2 41 VBG pO2 48 VBG HCO3 30 H VBG O2 Saturation 75.0 VBG Base Excess 6.1 Sodium 142 Potassium 3.0 L Chloride 107 Carbon Dioxide 31 H Anion Gap 7 L BUN 24 H Creatinine 0.76 Estim Creat Clear Calc 65.9 Estimated GFR > 60 Random Glucose 127 H Calcium 8.9 Phosphorus 2.4 L Magnesium 1.7 Albumin 3.6 Microbiology Microbiology Results: Microbiology 10/25/22 00:10 Blood - Venous Blood Culture - Preliminary No growth after 24 hours. 10/25/22 00:10 Blood - Venous Blood Culture - Preliminary No growth after 24 hours. 10/18/22 19:00 Blood - Venous Blood Culture - Final Klebsiella pneumoniae 10/18/22 18:50 Blood - Venous Blood Culture - Final Klebsiella pneumoniae 10/19/22 12:49 Urine Other - Kidney Right Urine Culture - Final Klebsiella pneumoniae 10/18/22 Unknown Urine clean catch - Urine hess top Urine Culture - Final Klebsiella pneumoniae Progress Note: A&P Assessment and plan (1) Right heart failure: Status: Acute (2) Pneumonia: Status: Acute (3) Hyperbilirubinemia: Status: Acute (4) Acute respiratory failure with hypoxia: Status: Acute (5) Bacteremia due to Klebsiella pneumoniae: Status: Acute (6) Bipolar 1 disorder: Status: Acute (7) Septic shock: Status: Acute Plan Assessment:? 51-year-old lady admitted with septic shock with Klebsiella bacteremia secondary to obstructing renal calculus, now status post stenting with hospital course complicated by acute hypoxic respiratory failure Plan: Neuro:? No acute issues. Cardiac: septic shock, continue to titrate off pressors as tolerated.? Underlying AFib, full dose anticoagulation held secondary to hematuria.? Subacute right heart failure.? Diuresis held secondary to soft blood pressures. Pulmonary:? Still with significant hypoxemia despite significant diuresis.? CT chest with bilateral ground-glass infiltrates can be either infectious or pulmonary edema.? Continue to titrate off supplemental oxygen as tolerated.? Component of pulmonary hypertension,?continue on empiric sildenafil. Renal:? ? Acute renal failure secondary to obstructing renal calculus, now status post stenting, resolved.? Hematuria resolved. Non oliguric.? Continue to monitor renal indices and urine output.? Urology service care appreciated. Endo:? No acute issues. GI:? Hyperbilirubinemia and jaundice on the background of cholecystectomy, abdominal ultrasound with evidence of cholestasis. ID:? Klebsiella bacteremia secondary to obstructing right renal calculus.? Continue Levaquin. Still with persistent fevers, added Zosyn.? Also likely with development of secondary pneumonia or ARDS secondary to underlying bacteremia. Heme/Onc:? ? Thrombocytopenia, likely consumptive secondary to hematuria , improving.? Continue to monitor blood cell counts.? No evidence of pulmonary embolism on CT angiogram. Psych:? No acute issues. underlying bipolar disorder and anxiety. Miscellaneous:? No acute issues. Prophylaxis: heparin Diet: regular Critical care time spent: ? 45 minutes Quality Stroke Does the patient have a stroke diagnosis?: No VTE Prior VTE?: No VTE Risk Level:: Medical - moderate - high VTE Device Contraindication: N/A - Device Ordered VTE Drug Contraindication: N/A - Med Ordered
[2022-10-26] MEDS: clonazePAM 0.5 MG TABLET PO (12:21)
[2022-10-26] MEDS: Ketorolac Tromethamine 15 MG/ML VIAL IVPUSH (12:29)
[2022-10-26] MEDS: Haloperidol Lactate 5 MG/ML VIAL 2.5 MG IVPUSH (12:30)
--- NOTE | 2022-10-26 19:46 | PC.NURSE ---
ON INITIAL ASSESSMENT PATIENT AGITATED AND DEMANDING PAIN MEDS, PATIENT ALERT TO NAME AND LOCATION. PATIENT GIVEN PRN KLONOPIN AND PRN TORADOL, SEE EMAR. PATIENT LEVOPHED TITRATED UP TO MAINTAIN MAP GOAL OF GREATER THAN 65. PATIENT ON HFNC AT BEGINNING OF SHIFT, UNABLE TO MAINTAIN OXYGENATION. PLACED ON NASAL CPAP BY RT IN AM. PATIENT SWITCHED OVER TO FACIAL CPAP AT 1620 WHEN PATIENT WAS UNABLE TO MAINTAIN SUFFICIENT OXYGENATION WHILE SLEEPING. PATIENT SET TO A 500 ML WATER LIMIT PER 12 HR SHIFT BY MD, ENSURE NOT COUNTED TOWARDS LIMIT. PATIENT HAD COPIOUS LOSE BOWEL MOVEMENT IN AFTERNOON. PATIENT REPOSITIONED Q2HR, ROUTINE MOUTH CARE PREFORMED, ADEQUATE PAIN MANAGEMENT PREFORMED, FAMILY AND PATIENT UPDATED N HEALTH STATUS.
[2022-10-26] MEDS: levoFLOXacin/D5W 750 MG/150 ML PIGGYBACK 100 MG IV (20:14)
[2022-10-27] VITALS (34 sets, daily range): BP systolic 83–136; BP diastolic 54–93; PULSE 63–112; RESP 16–43; TEMP 37.4–39.2; O2SAT 72–98; BMI 24.6
[2022-10-27] MEDS: Haloperidol Lactate 5 MG/ML VIAL 2.5 MG IVPUSH (00:06)
[2022-10-27] MEDS: HYDROmorphone HCl 0.5 MG/0.5 ML SYRINGE IVPUSH ×2 (00:33→16:21)
[2022-10-27] MEDS: Piperacillin Sodium/Tazobactam 3.375 GM in 0.9 % Sodium Chloride 50 ML IV ×4 (04:12→20:59)
[2022-10-27 05:30] LABS: VBG Base Excess 5.8 mmol/L; VBG HCO3 30 mmol/L (22-26); VBG pCO2 42 mmHg; VBG pH 7.45 (7.32-7.43); VBG pO2 43 mmHg
[2022-10-27 05:58] LABS: Alanine Aminotransferase 22 U/L (0-31); Alkaline Phosphatase 159 U/L (39-117); Anion Gap 13 (12-20); Aspartate Amino Transferase 47 U/L (5-31); Bilirubin Total 4.5 mg/dL (0.0-1.0); Blood Urea Nitrogen 21 mg/dL (9-16); Calcium 8.3 mg/dL (8.4-10.2); Carbon Dioxide 31 mmol/L (22-29); Chloride 113 mmol/L (96-108); Creatinine Clr Calc Pharmacy 73.6; Estimated Glomerular Filt Rate > 60; Glucose Random 124 mg/dL (60-115); Magnesium 1.9 mg/dL (1.6-2.6); Potassium 3.6 mmol/L (3.3-5.1); Sodium 153 mmol/L (135-145); Total Protein 4.6 g/dL (6.5-8.0)
[2022-10-27 05:59] LABS: Venous Blood Gas Refer to POC result
[2022-10-27 06:11] LABS: Hematocrit 21.6 % (37.0-47.0); Hemoglobin 7.3 g/dl (12.0-16.0); Mean Corpuscular HGB Conc 33.8 g/dl (31.0-35.0); Mean Corpuscular Hemoglobin 31.5 pg (27.0-33.0); Mean Corpuscular Volume 93.1 fL (80.0-98.0); Mean Platelet Volume 11.4 fL (9.4-12.3); NRBC Pct Auto 3.9 /100WBC (0.0-0.2); Platelet Count 118 X10*3/uL (160-400); Red Blood Count 2.32 X10*6/uL (4.20-5.50); Red Cell Distribution Width 17.2 % (11.0-16.0); White Blood Count 19.1 X10*3/uL (4.8-10.8)
[2022-10-27 06:42] LABS: Band Neutrophils Percent 4 % (3-5); Lymphocytes Absolute Manual 1.9 X10*3/uL (1.2-4.9); Lymphocytes Percent Manual 10 % (20-40); Metamyelocytes Absolute 0.6 X10*3/uL; Metamyelocytes Percent 3 %; Monocytes Absolute Manual 0.4 X10*3/uL (0.1-1.2); Monocytes Percent Manual 2 % (2-11); Neutrophils Absolute Manual 16.2 X10*3/uL (2.0-8.3); Neutrophils Percent Manual 81 % (45-73); Nucleated Red Blood Cells 1 /100WBC (0-0)
[2022-10-27 06:44] LABS: RBC Morphology NOTED
[2022-10-27 06:45] LABS: Hypochromasia 1+ (5-14) /OIF; Platelet Estimate DECREASED (NORMAL); Platelet Morphology Comment NORMAL; Polychromasia 1+ (0-2) /OIF; Target Cells 2+ (15-30) /OIF
[2022-10-27] MEDS: Potassium Phosphate/NS 15 MMOL/250 ML PLAST..BAG 62.5 MMOL IV (07:45)
[2022-10-27] MEDS: Sildenafil Citrate 20 MG TABLET PO (07:46)
[2022-10-27] MEDS: Thiamine HCL 100 MG TABLET PO (07:46)
[2022-10-27] MEDS: lamoTRIgine 100 MG TABLET 150 MG PO (07:46)
[2022-10-27] MEDS: dexmedeTOMIDidine HCL/NS 400 MCG/100 ML INFUS..BTL 13.83 MCG IVCONT ×2 (07:50→12:55)
--- NOTE | 2022-10-27 09:23 | MHC.CM.PN ---
Addendum entered by Adela Crow 10/27/22 10:25: Clinical updates sent to [facility] via [facility]. Original Note: Patient remains in ICU with high flow oxygen vs Bipap. Patient remains in Levophed drip. Patient is from home with [facility] at baseline. However, anticipate patient will return to [facility] via S for STR when medically stable. Continue to monitor for d/c needs.
--- NOTE | 2022-10-27 10:08 | MHC.SLORD ---
Addendum entered and electronically signed by Anastasia Harrell MA, CCC-SERVICE TECHNICIAN 10/27/22 11:53: D.S. Original Note: Speech Language Pathology Order Status: Per RN, pt is not appropriate for swallow eval d/t decline in respiratory status. SERVICE TECHNICIAN will continue to follow and evaluate when appropriate.
[2022-10-27] MEDS: Furosemide 20 MG/2 ML VIAL IVPUSH (10:30)
--- NOTE | 2022-10-27 11:17 | MHC.CLN ---
PT WITH INCREASED NUTRITION RISK R/T PRESSURE INJURIES PT IS CURRENTLY NPO (DAY 1) R/T DIFFICULTY SWALLOWING MEDS OCCUPATIONAL HEALTH NURSE NOTED 10/27: Per RN, pt is not appropriate for swallow eval d/t decline in respiratory status. WHEN DIET TO ADVANCE; RECOMMEND ADDING ENSURE BID TO PROMOTE WOUND HEALING SUPP TO PROVIDE 700KCALS, 40G PROTEIN FOLLOWING WITH TEAM CONSULT RD IF ALTERNATIVE NUTRITION IS NEEDED SEE ALSO FULL CLINICAL NUTRITION ASSESSMENT
[2022-10-27] MEDS: fentaNYL citrate/PF 100 MCG/2 ML VIAL 25 MCG IVPUSH ×2 (11:41→12:41)
[2022-10-27] MEDS: methylPREDNISolone Sod Succ 125 MG/2 ML VIAL IVPUSH (11:42)
[2022-10-27] MEDS: Furosemide 200 MG in 0.9 % Sodium Chloride 80 ML IVCONT (11:43)
--- NOTE | 2022-10-27 11:46 | PM.UROPN ---
Subjective Subjective Date of Service: 10/27/22 Interval history: 51-year-old lady with underlying history of AFib, bipolar disorder, prior gastric bypass, cholecystectomy.? chronic hypotension on midodrine, prior UTIs, recent right femoral neck fracture status post surgical repair on 10/02/2022 admitted on 10/19/[address] [facility] short term rehab with septic shock secondary to Klebsiella bacteremia with source secondary to obstructing right renal calculus. Now status post stenting by Urology on 10/19/2022.? creatinine has fallen from 1.7 now 0.7 hospital course complicated by apparent combination of pulmonary edema and pneumonia with failure to thrive if still in hospital in 7 days we may schedule stone Procedure current white count still 19.1 Physical Exam Vital Signs: Vital Signs: Last Vital Signs Temp 100.6 F H 10/27/22 10:00 Pulse 100 10/27/22 10:00 Resp 26 H 10/27/22 11:28 BP 107/72 10/27/22 10:00 Pulse Ox 90 L 10/27/22 10:00 O2 Del Method 10/27/22 10:00 O2 Flow Rate 50 10/27/22 10:00 FiO2 90 10/27/22 10:00 BMI result Body Mass Index 24.6 Const: General: cooperative, healthy appearing, comfortable and no acute distress Orientation/consciousness: patient oriented x3 HEENT: Face and sinus: Yes normal facial exam Mouth: moist mucous membranes Neck: Neck: Yes normal visual inspection, Yes full ROM and Yes trachea midline Chest: Chest palpation & inspection: normal inspection of the chest Resp: Effort & Inspection: normal respiratory effort, able to speak in complete sentences and no respiratory distress GI: Inspection: Yes normal to inspection Back/Spine/Pelvis: Cervical Spine: normal cervical lordosis Thoracic/Lumbar Spine: thoracic and lumbar spine normal to inspection Skin: General skin exam: no rashes or lesions noted Neuro: General: patient oriented x3, tone normal and moves all extremities Extrem: General: Yes normal to inspection and Yes capillary refill normal Urology Results Labs CBC & Chem 7: 10/27/22 05:23 10/27/22 05:23 Labs: Laboratory Results - last 24 hr 10/26/22 10/27/22 10/27/22 05:34 05:23 05:23 WBC 19.1 H RBC 2.32 L Hgb 7.3 L Hct 21.6 L MCV 93.1 MCH 31.5 MCHC 33.8 RDW 17.2 H Plt Count 118 L MPV 11.4 Immature Gran % (Auto) Cancelled Neut % (Auto) Cancelled Lymph % (Auto) Cancelled [place] % (Auto) Cancelled Eos % (Auto) Cancelled Baso % (Auto) Cancelled Lymph # (Auto) Cancelled [place] # (Auto) Cancelled Eos # (Auto) Cancelled Baso # (Auto) Cancelled Abs Immat Gran (auto) Cancelled Absolute Neuts (auto) Cancelled Absolute Nucleated RBC 0.740 H Nucleated RBC % (auto) 3.9 H Neutrophils % (Manual) 81 H Band Neutrophils % 4 Lymphocytes % (Manual) 10 L Monocytes % (Manual) 2 Metamyelocytes % 3 Abs Neuts (Manual) 16.2 H Lymphocytes # (Manual) 1.9 Monocytes # (Manual) 0.4 Metamyelocytes # 0.6 Nucleated RBCs 1 H Platelet Estimate DECREASED Plt Morphology Comment NORMAL RBC Morphology NOTED Polychromasia 1+ (0-2) Hypochromasia 1+ (5-14) Target Cells 2+ (15-30) Smear Path Review VBG pH VBG pCO2 VBG pO2 VBG HCO3 VBG O2 Saturation VBG Base Excess Sodium 153 H Potassium 3.6 Chloride 113 H Carbon Dioxide 31 H Anion Gap 13 BUN 21 H Creatinine 0.68 Estim Creat Clear Calc 73.6 Estimated GFR > 60 Random Glucose 124 H Calcium 8.3 L D Phosphorus 2.0 L Magnesium 1.9 Total Bilirubin 4.5 H AST 47 H ALT 22 Alkaline Phosphatase 159 H Total Protein 4.6 L Albumin 3.0 L 10/27/22 05:23 WBC RBC Hgb Hct MCV MCH MCHC RDW Plt Count MPV Immature Gran % (Auto) Neut % (Auto) Lymph % (Auto) [place] % (Auto) Eos % (Auto) Baso % (Auto) Lymph # (Auto) [place] # (Auto) Eos # (Auto) Baso # (Auto) Abs Immat Gran (auto) Absolute Neuts (auto) Absolute Nucleated RBC Nucleated RBC % (auto) Neutrophils % (Manual) Band Neutrophils % Lymphocytes % (Manual) Monocytes % (Manual) Metamyelocytes % Abs Neuts (Manual) Lymphocytes # (Manual) Monocytes # (Manual) Metamyelocytes # Nucleated RBCs Platelet Estimate Plt Morphology Comment RBC Morphology Polychromasia Hypochromasia Target Cells Smear Path Review VBG pH 7.45 H VBG pCO2 42 VBG pO2 43 VBG HCO3 30 H VBG O2 Saturation 69.0 VBG Base Excess 5.8 Sodium Potassium Chloride Carbon Dioxide Anion Gap BUN Creatinine Estim Creat Clear Calc Estimated GFR Random Glucose Calcium Phosphorus Magnesium Total Bilirubin AST ALT Alkaline Phosphatase Total Protein Albumin Progress Note: A&P Assessment and plan (1) Bacteremia due to Klebsiella pneumoniae: Status: Acute (2) Septic shock: Status: Acute (3) Hydronephrosis with renal and ureteral calculus obstruction: Status: Acute Plan continue to follow, if white count falls may be ready for intervention Time Spent With Patient Time: Total time spent is greater than 50% in coordination of care (as documented) at patient's floor/unit and/or counseling patient: Progress Note: Quality Stroke Does the patient have a stroke diagnosis?: No
[2022-10-27] MEDS: Furosemide 100 MG/10 ML VIAL 80 MG IVPUSH (12:01)
[2022-10-27] MEDS: Midazolam HCl/PF 2 MG/2 ML VIAL 1 MG IVPUSH (12:49)
--- NOTE | 2022-10-27 14:47 | PM.CCPN ---
Subjective Subjective Date of Service: 10/27/22 Interval History: Mrs. Davalos was admitted to ICU on Oct 19 with septic shock. 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 She has a history of multiple UTIs, thought secondary to small kidney stones. ?Family tells me that ever since she had the gastric bypass about 2 years ago, her overall health, and functional status have gone downhill.? Furthermore they tell me that she wants to get down to a weight of 100 lbs (currently about 110 lbs). Up until the patient suffered a right femoral neck fx early last month she was living alone in an apartment in [facility], and ambulated with a rolling walker.? 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 According to the family, however, she was not very independent and was not doing particularly well.? After she broke her hip, she was transferred to [facility] for rehab on 10/02/2022.? She is supposed to be nonweightbearing and uses a wheelchair. On October 18, the patient was BIBA from [facility] of hypotension, fatigue, and weakness. ?Blood pressure was reportedly 60/30 at the group home, and she had not urinated in over 6 hours. ?In the ED, she was A&O.? SpO2 was 96% on room air, Heart rate 79, blood pressure 70/33, respiratory rate 18. Afebrile. Labs were notable for WBC 26.8, Hgb 7.0, BUN/creat 41/1.6 (baseline 0.7), sodium 127 (baseline 140), Tbili 2.4, AST 59, ALT 139, Alk Phos 208, lactate 3.7. COVID-19 and influenza negative.? U/A 21-50 WBC, large LE, neg nitrite, 4+ bacti. Stool occult blood was positive. CT/CT abdomen pelvis showed a 9x4 mm obstructing proximal right ureteral stone w hydronephrosis, atelectasis/infiltrate at the left lung base along with a small left pleural effusion,? an enlarged fatty liver, and a large stool burden in the colon. She was vol resusc w 2 L crystalloid and 2 units RBCs.? She was given midodrine and Abx.? She remained hypotensive.? A central line was placed and she was started on Levophed and admitted to ICU early on 10/19.? Later that day she underwent cysto and right stent placement in the OR.? Blood and urine cx?s grew a partly sensitive Klebsiella, sensitive to the Levaquin she was on.? Hosp course was notable for precipitous thrombocytopenia.? Her pressor requirement and leukocytois began to improve, but on Oct 20, her oxygenation began to deteriorate.? She began to require supplemental oxygen.? CXR on 10/21 showed new diffuse heterogenous bilateral airspace opacities.? BNP was elevated to 886 (prior BNP last year was 51).? Chest CT on Oct 22 showed extensive heterogenous bilateral airspace opacities, some parts looking like pulmonary edema, some parts looking like pneumonia, all new since CT of 10/18.? Her oxygen requirement increased correspondingly, and she was up to a non-rebreather face mask by October 22. On October 23, venous duplex scan showed no DVT.? She underwent a CTPA which showed no pulmonary emboli, but her main pulmonary artery was enlarged, and her right ventricle was markedly enlarged, with RV:LV cavity ratio greater than 2.0.? Lung larios looked about the same as the prior CT on October 22, maybe quantitatively slightly worse.? Dr. Fajardo thought the hypoxemic respiratory failure was secondary to combination of pulmonary edema and pneumonia secondary to the Klebsiella bacteremia.? Echo showed normal LV size, wall thickness and hyperdynamic LV function.? Diastolic function was normal.? RV cavity size was moderately increased with moderately decreased systolic function.? Aortic valve and mitral valve were unremarkable.? There was moderate tricuspid regurgitation, with a dilated poorly collapsing IVC, and RVSP estimate 36 mm.? She was diuresed. By Oct 24, she was requiring HFNC + NRBFM.? She developed progressive hyperbilirubinemia with jaundice.? She was started on sildenafil.? Yesterday, she was put on CPAP.? Diuresis was held bec of softer BPs.? In view of the CT features suggestive of pneumonia, Zosyn was added bec of failure of her oxygenation to improve, This morning she refused to wear the CPAP mask.? She was put on HFNC, and required 100% FiO2, + NRBFM, and only got up to high 80?s SpO2.? We gave her Lasix 80mg and put her on 5mg/hr drip and put her back on CPAP 10cm.? She started to dump urine, and gradually over the day, her FiO2 came down, now down to 35%, with SpO2 98%.? CBG this morning showed 7.45/42/+5. ?HR 80, SR.? BP 109/77 on Precedex 1.5ug and Levophed 0.1 ug.? Tmax 102.6?.? No JVD at 30?!? Chest CTA. RRR, normal-sounding S1 and S2, I heard no murmur or gallops. Abdomen is benign. Amazingly, she has no significant edema. Extremities are very asthenic. LABORATORY DATA:? Below.? Notably, WBC, hemoglobin, and platelet count are steady.? Sodium this morning was up to 153, BUN/creatinine down to 21/0.6, total bili down to 4.5, albumin down to 3.0. MICROBIOLOGY:? Last BCx?s on 10/25 were negative. My bedside ECHO:? LV cavity small with normal fxn.? RV cavity markedly dilated, with RV:LV cavity ratio > 2.0.? At least 1+ TR with CWD 3.2 m/sec (gradient 41 mm).? IVC 2.2 cm.? RVSP 56mm. IMPRESSION: 1. Obstructive uropathy with right ureteral stone.? Status post stent. 2. Urosepsis.? 2? above.? Continues on Levaquin. 3. Severe, diffuse, heterogenous bilat pulmonary infiltrates, with some features looking like pneumonia (e.g. air bronchograms), most of the rest looking like pulmonary edema.? She?s had no response to 24hrs of Zosyn, but she?s had a striking response to aggressive diuresis.? I also gave her one dose of 125 mg Solu-Medrol this morning, but didn?t continue it after the diuresis appeared to be working well. 4. Acute respiratory failure.? 2? above. 5. Severe right heart failure.? The cause is unclear, hard to believe that this is all acute.? Furthermore, her prior need for midodrine would be c/w RHF.? Continue diuresis.? Add Diamox. 6. ELYSE. ?Improving.? Be interesting to see what tomorrow morning?s renal indices are after today?s vigorous diuresis. 7. Hyperbilirubinemia.? 2? hepatic congestion.? Improving numbers w diuresis. 8. ID.? Prime source is urinary Klebsiella.? Sensitive to Levaquin.? Doubtful that the Zosyn is doing anything.? Will consult ID. 9. Hypernatremia.? Start D5W. 10. Thrombocytopenia.? Likely secondary to critical illness.? Improving as she gets better. 11. Neuro/psych.? Underlying bipolar disorder and anxiety.? Precedex appears to have helped a little.? Did better w prn Versed. Spoke to family at length in four long conversations at the bedside.? We discussed possible etiologies of her resp failure, and management strategies, fortino vis-?-vis intubation.? Family agrees to intubation if nec.? We would then reevaluate in 3-5 days. Critical care time (including full chart rev, hosp course summary, extended d/w Dr. Fajardo):? 2.5 hrs. Critical Care Time (minutes): 150 Physical Exam Vital Signs: Vital Signs: Last Vital Signs Temp 102.4 F H 10/27/22 14:00 Pulse 97 10/27/22 14:00 Resp 24 H 10/27/22 14:00 BP 124/81 10/27/22 14:00 Pulse Ox 93 10/27/22 14:00 O2 Del Method 10/27/22 14:00 O2 Flow Rate 50 10/27/22 10:00 FiO2 60 10/27/22 13:00 BMI result Body Mass Index 24.6 Objective Data Labs CBC & Chem 7: 10/28/22 05:20 10/28/22 05:20 Labs: Laboratory Results - last 24 hr 10/26/22 10/27/22 10/27/22 05:34 05:23 05:23 WBC 19.1 H RBC 2.32 L Hgb 7.3 L Hct 21.6 L MCV 93.1 MCH 31.5 MCHC 33.8 RDW 17.2 H Plt Count 118 L MPV 11.4 Immature Gran % (Auto) Cancelled Neut % (Auto) Cancelled Lymph % (Auto) Cancelled [place] % (Auto) Cancelled Eos % (Auto) Cancelled Baso % (Auto) Cancelled Lymph # (Auto) Cancelled [place] # (Auto) Cancelled Eos # (Auto) Cancelled Baso # (Auto) Cancelled Abs Immat Gran (auto) Cancelled Absolute Neuts (auto) Cancelled Absolute Nucleated RBC 0.740 H Nucleated RBC % (auto) 3.9 H Neutrophils % (Manual) 81 H Band Neutrophils % 4 Lymphocytes % (Manual) 10 L Monocytes % (Manual) 2 Metamyelocytes % 3 Abs Neuts (Manual) 16.2 H Lymphocytes # (Manual) 1.9 Monocytes # (Manual) 0.4 Metamyelocytes # 0.6 Nucleated RBCs 1 H Platelet Estimate DECREASED Plt Morphology Comment NORMAL RBC Morphology NOTED Polychromasia 1+ (0-2) Hypochromasia 1+ (5-14) Target Cells 2+ (15-30) Smear Path Review VBG pH VBG pCO2 VBG pO2 VBG HCO3 VBG O2 Saturation VBG Base Excess Sodium 153 H Potassium 3.6 Chloride 113 H Carbon Dioxide 31 H Anion Gap 13 BUN 21 H Creatinine 0.68 Estim Creat Clear Calc 73.6 Estimated GFR > 60 Random Glucose 124 H Calcium 8.3 L D Phosphorus 2.0 L Magnesium 1.9 Total Bilirubin 4.5 H AST 47 H ALT 22 Alkaline Phosphatase 159 H Total Protein 4.6 L Albumin 3.0 L 10/27/22 05:23 WBC RBC Hgb Hct MCV MCH MCHC RDW Plt Count MPV Immature Gran % (Auto) Neut % (Auto) Lymph % (Auto) [place] % (Auto) Eos % (Auto) Baso % (Auto) Lymph # (Auto) [place] # (Auto) Eos # (Auto) Baso # (Auto) Abs Immat Gran (auto) Absolute Neuts (auto) Absolute Nucleated RBC Nucleated RBC % (auto) Neutrophils % (Manual) Band Neutrophils % Lymphocytes % (Manual) Monocytes % (Manual) Metamyelocytes % Abs Neuts (Manual) Lymphocytes # (Manual) Monocytes # (Manual) Metamyelocytes # Nucleated RBCs Platelet Estimate Plt Morphology Comment RBC Morphology Polychromasia Hypochromasia Target Cells Smear Path Review VBG pH 7.45 H VBG pCO2 42 VBG pO2 43 VBG HCO3 30 H VBG O2 Saturation 69.0 VBG Base Excess 5.8 Sodium Potassium Chloride Carbon Dioxide Anion Gap BUN Creatinine Estim Creat Clear Calc Estimated GFR Random Glucose Calcium Phosphorus Magnesium Total Bilirubin AST ALT Alkaline Phosphatase Total Protein Albumin Microbiology Microbiology Results: Microbiology 10/25/22 00:10 Blood - Venous Blood Culture - Preliminary No growth after 48 hours. 10/25/22 00:10 Blood - Venous Blood Culture - Preliminary No growth after 48 hours. 10/18/22 19:00 Blood - Venous Blood Culture - Final Klebsiella pneumoniae 10/18/22 18:50 Blood - Venous Blood Culture - Final Klebsiella pneumoniae 10/19/22 12:49 Urine Other - Kidney Right Urine Culture - Final Klebsiella pneumoniae 10/18/22 Unknown Urine clean catch - Urine hess top Urine Culture - Final Klebsiella pneumoniae Quality Stroke Does the patient have a stroke diagnosis?: No VTE Prior VTE?: No VTE Risk Level:: Medical - moderate - high VTE Device Contraindication: N/A - Device Ordered VTE Drug Contraindication: N/A - Med Ordered Critical Care Time Critical Care Time (minutes): 150
[2022-10-27] MEDS: Acetaminophen Supp 650 MG SUPP.RECT PR ×2 (14:49→20:59)
[2022-10-27] MEDS: dexmedeTOMIDidine HCL/NS 400 MCG/100 ML INFUS..BTL 20.74 MCG IVCONT ×2 (18:20→22:02)
[2022-10-27 19:08] LABS: Appearance Urine Cloudy; Color Urine Yellow; Glucose Urine UA Negative (Negative); Leukocyte Esterase Urine Moderate (2+) (Negative); Nitrite Urine Negative (Negative); UMIC TRIGGER UA YES; Urine Blood Moderate (2+) (Negative); Urine Ketones Negative (Negative); Urine Protein Negative (Neg-Trace)
[2022-10-27 19:31] LABS: Bacteria Urine None Seen (None Seen); RBC Urine >20 /HPF (0-2); Squamous Epithelial Cell Urine 0-2 /HPF (0-2); WBC Urine 21-50 /HPF (0-5)
[2022-10-27] MEDS: levoFLOXacin/D5W 750 MG/150 ML PIGGYBACK 100 MG IV (21:52)
[2022-10-27] MEDS: fentaNYL citrate/PF 100 MCG/2 ML VIAL 50 MCG IVPUSH (23:22)
--- NOTE | 2022-10-27 23:22 | PC.NURSE ---
PATIENT SEVERELY AGITATED PULLED OFF BIPAP, PULLING AT TRIPLE LUMEN, FIGHTING STAFF AND SCREAMING. 50MG IVP FENTANYL GIVEN PER PA. PENDING EFFECT.
[2022-10-28] VITALS (35 sets, daily range): BP systolic 72–120; BP diastolic 40–82; PULSE 52–89; RESP 14–34; TEMP 35.7–38.1; O2SAT 89–100; BMI 24.0
[2022-10-28] MEDS: Haloperidol Lactate 5 MG/ML VIAL 2.5 MG IVPUSH (00:16)
[2022-10-28] MEDS: dexmedeTOMIDidine HCL/NS 400 MCG/100 ML INFUS..BTL 20.74 MCG IVCONT (02:19)
[2022-10-28] MEDS: HYDROmorphone HCl 0.5 MG/0.5 ML SYRINGE IVPUSH (02:23)
[2022-10-28] MEDS: Dextrose 5 % 1,000 ML 100 ML IVCONT (02:41)
[2022-10-28] MEDS: Piperacillin Sodium/Tazobactam 3.375 GM in 0.9 % Sodium Chloride 50 ML IV ×2 (04:18→09:22)
[2022-10-28] MEDS: acetaZOLAMIDE sodium 500 MG VIAL IVPUSH ×3 (05:14→16:46)
[2022-10-28 05:29] LABS: VBG Base Excess 15.8 mmol/L; VBG HCO3 40 mmol/L (22-26); VBG pCO2 49 mmHg; VBG pH 7.52 (7.32-7.43); VBG pO2 33 mmHg
[2022-10-28 05:39] LABS: PLT CLUMP 1
[2022-10-28 05:41] LABS: Hematocrit 24.2 % (37.0-47.0); Mean Corpuscular HGB Conc 33.1 g/dl (31.0-35.0); Mean Corpuscular Hemoglobin 31.6 pg (27.0-33.0); Mean Corpuscular Volume 95.7 fL (80.0-98.0); Red Blood Count 2.53 X10*6/uL (4.20-5.50); Red Cell Distribution Width 17.3 % (11.0-16.0)
[2022-10-28 05:42] LABS: NRBC Pct Auto 3.7 /100WBC (0.0-0.2); Platelet Count 139 X10*3/uL (160-400); White Blood Count 18.8 X10*3/uL (4.8-10.8)
[2022-10-28 05:47] LABS: Ammonia 45 umol/L (13-55)
[2022-10-28 05:52] LABS: Venous Blood Gas Refer to POC result
[2022-10-28 06:00] LABS: B Type Natriuretic Peptide 2774 pg/mL (<100)
[2022-10-28] MEDS: Furosemide 200 MG in 0.9 % Sodium Chloride 80 ML IVCONT (06:02)
[2022-10-28 06:08] LABS: Alanine Aminotransferase 22 U/L (0-31); Albumin Level 3.3 g/dL (3.5-5.0); Alkaline Phosphatase 149 U/L (39-117); Anion Gap 13 (12-20); Aspartate Amino Transferase 34 U/L (5-31); Blood Urea Nitrogen 20 mg/dL (9-16); Calcium 8.3 mg/dL (8.4-10.2); Carbon Dioxide 38 mmol/L (22-29); Chloride 105 mmol/L (96-108); Creatinine Clr Calc Pharmacy 66.6; Estimated Glomerular Filt Rate > 60; Glucose Random 144 mg/dL (60-115); Magnesium 1.9 mg/dL (1.6-2.6); Phosphorus 3.4 mg/dL (2.7-4.5); Potassium 2.9 mmol/L (3.3-5.1); Sodium 153 mmol/L (135-145); Total Protein 5.2 g/dL (6.5-8.0)
[2022-10-28 06:19] LABS: Procalcitonin 0.56 ng/mL
--- NOTE | 2022-10-28 06:31 | PC.NURSE ---
CARE ASSUMED 23:15...REMAINS CPAP 10CM/FIO2 35%...AWAKE..DISORIENTED AND INTERMITTANTLY RESTLESS DESPITE PRECIDEX 1.5 MCG/KG...MEDICATED WITH PRN HALDOL AT HS...LATER WITH PRN DILAUDID FOR ?PAIN AND RESTLESSNESS....LASIX DRIP INFUSING..STARTED D5W 100 CC/HR PER MD AND TO CONTINUE LASIX DRIP...PER MD UTILIZE PRN MEDS AND ATTEMPT TO WEAN DOWN AND D/C PRECIDEX IF POSSIVLE...PRECIDEX WEANED..CURRENTLTLY 0.3 MCG/KG/H...NSR HR 60'S...GILL YELLOW URINE
[2022-10-28] MEDS: Albumin Human 25 % 100 ML IV ×2 (07:29→09:14)
[2022-10-28] MEDS: Potassium Chloride/H20 40 MEQ/100 ML PIGGYBACK 100 MEQ IV (07:29)
[2022-10-28] MEDS: Sildenafil Citrate 20 MG TABLET PO (09:14)
[2022-10-28] MEDS: lamoTRIgine 100 MG TABLET 150 MG PO (09:14)
[2022-10-28] MEDS: Thiamine HCL 100 MG TABLET PO (09:15)
[2022-10-28] MEDS: Magnesium Sulfate/D5W 1 GM/100 ML PIGGYBACK IV (10:03)
--- NOTE | 2022-10-28 10:22 | MHC.SL.SWA ---
Addendum entered and electronically signed by Anastasia Harrell MA, CCC-GREASE MACHINE WORKER 10/28/22 10:26: D.S. Original Note: Risk of Aspiration Due to: Lethargy Medically Fragile Weak Cough Weak Voice Dysphasia Diet Status: Upgrade from NPO Liquid Consistency and Strategies for Safe Swallow: Liquid Intake Recommendation: Thin Liquid Intake Strategies: Small Sips No Straws Solid Food Consistency: Dietary Recommendations: Pureed (NDD1) Additional Modifications to Solid Foods: Oral Medication Intake: Crushed with Puree Please contact the pharmacy regarding appropriate crushable or liquid drug formulations that are available whenever modified delivery is recommended. Compensatory Strategies and Precautions to be Taken for Safe Swallow: Sitting Upright (90 deg) No Straw Liquids from Cup Liquids from Spoon Small Bites and Sips Rate of Ingestion Change Supervision While Eating and Drinking for Safe Swallow: Total Assistance (1:1) Recommendation for Speech: Outpatient Speech Therapy Inpatient Speech Therapy Comment: Recommend pureed solids (NDD1), thin liquids, pills crushed in puree. Pt requires assistance during feeding and full supervision. Pt is at risk for aspiration on high flow nasal cannula. Monitor for s/s of aspiration. Aspiration precautions apply. Buff Wheel Fabricator Clinican/Clinical Fellow: Yes: Radha Cervantes M.A., CF-GREASE MACHINE WORKER Supervisory Statement: I have reviewed and agree with the student/clinical fellow's documentation: Speech Language Pathologist:
--- NOTE | 2022-10-28 10:30 | MHC.CLN ---
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
--- NOTE | 2022-10-28 12:43 | MHC.CM.PN ---
Patient remains in ICU on high flow oxygen. Patient is at home with [facility] at baseline. However, patient was at [facility] for STR prior to coming to the hospital. Anticipate patient will return to [facility] when medically stable. Clinical updates sent to [facility] on 10/27. Continue to monitor for d/c needs.
--- NOTE | 2022-10-28 13:03 | PM.CCPN ---
Subjective Subjective Date of Service: 10/28/22 Interval History: Ms. Davalos was admitted to ICU on Oct 19 with septic shock. The patient is a 51 yo F with PMHx of PAfib, anxiety, asthma, bipolar disorder, bronchitis, complications from gastric bypass surgery, hypokalemia, chronic hypotension on midodrine, migraines, and PTSD. ?She has a history of multiple UTIs, thought secondary to small kidney stones. ?Family tells me that ever since she had the gastric bypass about 2 years ago, her overall health, and functional status have gone downhill. ?Furthermore they tell me that she wants to get down to a weight of 100 lbs (currently about 110 lbs). Up until the patient suffered a right femoral neck fx early last month she was living alone in an apartment in [facility], and ambulated with a rolling walker. ?She had help from a [employer]. ?According to the family, however, she was not very independent and was not doing particularly well. ?After she broke her hip, she was transferred to [facility] for rehab on 10/02/2022. ?She is supposed to be nonweightbearing and uses a wheelchair. On October 18, the patient was BIBA from [facility] of hypotension, fatigue, and weakness. ?Blood pressure was reportedly 60/30 at the correction, and she had not urinated in over 6 hours. ?In the ED, she was A&O. ?SpO2 was 96% on room air, Heart rate 79, blood pressure 70/33, respiratory rate 18. Afebrile. Labs were notable for WBC 26.8, Hgb 7.0, BUN/creat 41/1.6 (baseline 0.7), sodium 127 (baseline 140), Tbili 2.4, AST 59, ALT 139, Alk Phos 208, lactate 3.7. COVID-19 and influenza negative. ?U/A 21-50 WBC, large LE, neg nitrite, 4+ bacti. Stool occult blood was positive. CT/CT abdomen pelvis showed a 9x4 mm obstructing proximal right ureteral stone w hydronephrosis, atelectasis/infiltrate at the left lung base along with a small left pleural effusion, ?an enlarged fatty liver, and a large stool burden in the colon. She was vol resusc w 2 L crystalloid and 2 units RBCs. ?She was given midodrine and Abx. ?She remained hypotensive. ?A central line was placed and she was started on Levophed and admitted to ICU early on 10/19. Later that day she underwent cysto and right stent placement in the OR. ?Blood and urine cx?s grew a partly sensitive Klebsiella, sensitive to the Levaquin she was on. Initial hosp course was notable for precipitous thrombocytopenia which nadired in the 30K range, but without bleeding. ?Her pressor requirement and leukocytois began to improve, but on Oct 20, her oxygenation began to deteriorate. ?She began to require supplemental oxygen. ?CXR on 10/21 showed new diffuse heterogenous bilateral airspace opacities. ?BNP was elevated to 886 (prior BNP last year was 51). ?Chest CT on Oct 22 showed extensive heterogenous bilateral airspace opacities, some parts looking like pulmonary edema, some parts looking like pneumonia, all new since CT of 10/18. ?Her oxygen requirement increased correspondingly, and she was up to a non-rebreather face mask by October 22. On October 23, venous duplex scan showed no DVT. ?She underwent a CTPA which showed no pulmonary emboli, but her main pulmonary artery was enlarged, and her right ventricle was markedly enlarged, with RV:LV cavity ratio greater than 2.0. ?Lung larios looked about the same as the prior CT on October 22, maybe quantitatively slightly worse. ?The hypoxemic respiratory failure was thought secondary to combination of pulmonary edema and possibly pneumonia secondary to the Klebsiella bacteremia. ?Echo showed normal LV size, wall thickness and hyperdynamic LV function. ?Diastolic function was normal. ?RV cavity size was moderately increased with moderately decreased systolic function. ?Aortic valve and mitral valve were unremarkable. ?There was moderate tricuspid regurgitation, with a dilated poorly collapsing IVC, and RVSP estimate 36 mm. ?She was diuresed. By Oct 24, she was requiring HFNC + NRBFM. ?She developed progressive hyperbilirubinemia with jaundice. She was started on sildenafil. ?On Oct 26, she was put on CPAP. ?Diuresis was held bec of softer BPs. ?In view of the CT features suggestive of pneumonia, Zosyn was added bec of failure of her oxygenation to improve. Yesterday, she required 100% FiO2 on HFNC +NRBFM and was only satting in the mid-high 80s.She was started on aggressive Lasix diuresis with a drip and was put back on a CPAP 10 cm.? Throughout the day, she gradually required less oxygenation support. ?Her FiO2 came down to 35%, with Sat's up into the high 90's. Bedside ECHO:by Dr. Casiano showed ?LV cavity small with normal fxn. ?RV cavity markedly dilated, with RV:LV cavity ratio > 2.0. ?At least 1+ TR with CWD 3.2 m/sec (gradient 41 mm). ?IVC 2.2 cm. ?RVSP 56mm. On my exam this morning she appeared much more comfortable, much more calm and less needy. She was A&O x 3, following commands, appropriate affect (indeed), breathing easy, in no acute distress.? HR 68, SR, BP 95/61 on Levophed 0.1 ug.? Tmax down to 100.6. ?RR 17 on 7L [place] cannula, w SpO2 95%. CBG this morning showed 7.52/49/+15. ?Mild scleral icterus.? No JVD at 30?.? Decreased BS at both bases w normal exp phase. RRR, normal S1 and S2, no M or G. ?Abdomen is benign. No central edema and no pretibial edema. ?Scattered petechial hemorrhages on face and arms. No focal neuro deficits. LABORATORY DATA: ?Below. ?Notably, WBC, hemoglobin, and platelet count are steady. ?Sodium this morning was unchanged at 153 (despite D5W infusion overnite), BUN/creatinine steady at 20/0.7 (despite brisk diuresis), Tbili down slightly, albumin up to 3.3 with diuresis. MICROBIOLOGY: ?Last BCx?s on 10/25 were negative. New set drawn this morning. IMPRESSION: 1. Obstructive uropathy with right ureteral stone. ?Status post stent. 2. Urosepsis with Klebsiella.? 2? above. ?Continues on Levaquin. 3. Severe, diffuse, heterogenous bilat pulmonary infiltrates, with some features looking like pneumonia (e.g. air bronchograms), most of the rest looking like pulmonary edema. ?Diuresis appears to be working well.? Adding the Zosyn and the test dose of steroids didn't appear to help. 4. Acute respiratory failure. Improving. Now down to 7LNC oxygen with SpO2 95%!! 5. Severe right heart failure. ?The cause and acuity are unclear.? Prior need for midodrine would be c/w RHF. ?Continue diuresis.? Added Diamox. 6. Hypotension.? Cause not exactly clear.? Could very well be overdiuresis in the presence of RHF.? No longer appears to be septic. ?Titrate off Levophed.? Restart midodrine at 10mg tid. 7. ELYSE. ?Improving. ?Renal indices relatively unchanged after vigorous diuresis yesterday. 8. Hyperbilirubinemia. ?Coincident with acute right heart failure.? Therefore, likely 2? hepatic congestion. ?Improving numbers w diuresis, as expected. 9. ID. ?Prime source is urinary Klebsiella. ?Sensitive to Levaquin. ?D/C'd the Zosyn as it didn't appear to be doing anything. 10. Hypernatremia. ?Continue D5W. 11. Hypomagnesemia. Repleted. 12. Thrombocytopenia. ?Likely secondary to critical illness. ?Improving as she gets better. 13. Neuro/psych. ?Underlying bipolar disorder and anxiety. ?Home meds partially restarted. 14. Nutrition. Diet advanced today. ?Supplements encouraged. Critical Care Time (minutes): 60 Physical Exam Vital Signs: Vital Signs: Last Vital Signs Temp 98.8 F 10/28/22 12:00 Pulse 57 10/28/22 12:00 Resp 17 10/28/22 12:00 BP 95/61 10/28/22 12:00 Pulse Ox 95 10/28/22 12:00 O2 Del Method 10/28/22 12:00 O2 Flow Rate 7 10/28/22 12:00 FiO2 60 10/28/22 11:00 BMI result Body Mass Index 24.0 Objective Data Labs CBC & Chem 7: 10/28/22 05:20 10/28/22 05:20 Labs: Laboratory Results - last 24 hr 10/27/22 10/28/22 10/28/22 18:46 05:20 05:20 WBC RBC Hgb Hct MCV MCH MCHC RDW Plt Count MPV Absolute Nucleated RBC Nucleated RBC % (auto) VBG pH VBG pCO2 VBG pO2 VBG HCO3 VBG O2 Saturation VBG Base Excess Sodium 153 H Potassium 2.9 L Chloride 105 Carbon Dioxide 38 H Anion Gap 13 BUN 20 H Creatinine 0.75 Estim Creat Clear Calc 66.6 Estimated GFR > 60 Random Glucose 144 H Calcium 8.3 L Phosphorus 3.4 Magnesium 1.9 Total Bilirubin 4.0 H AST 34 H ALT 22 Alkaline Phosphatase 149 H Ammonia 45 B-Natriuretic Peptide Total Protein 5.2 L Albumin 3.3 L Procalcitonin Urine Color Yellow Urine Appearance Cloudy Urine pH 5.0 Ur Specific [place] 1.010 Urine Protein Negative Urine Glucose (UA) Negative Urine Ketones Negative Urine Blood Moderate (2+) H Urine Nitrite Negative Ur Leukocyte Esterase Moderate (2+) H Urine RBC >20 H Urine WBC 21-50 H Ur Squamous Epith Cells 0-2 Urine Bacteria None Seen Hyaline Casts 3-5 Urine Yeast Present 10/28/22 10/28/22 10/28/22 05:20 05:20 05:20 WBC 18.8 H RBC 2.53 L Hgb 8.0 L Hct 24.2 L MCV 95.7 MCH 31.6 MCHC 33.1 RDW 17.3 H Plt Count 139 L MPV 11.0 Absolute Nucleated RBC 0.690 H Nucleated RBC % (auto) 3.7 H VBG pH VBG pCO2 VBG pO2 VBG HCO3 VBG O2 Saturation VBG Base Excess Sodium Potassium Chloride Carbon Dioxide Anion Gap BUN Creatinine Estim Creat Clear Calc Estimated GFR Random Glucose Calcium Phosphorus Magnesium Total Bilirubin AST ALT Alkaline Phosphatase Ammonia B-Natriuretic Peptide 2774 H Total Protein Albumin Procalcitonin 0.56 Urine Color Urine Appearance Urine pH Ur Specific [place] Urine Protein Urine Glucose (UA) Urine Ketones Urine Blood Urine Nitrite Ur Leukocyte Esterase Urine RBC Urine WBC Ur Squamous Epith Cells Urine Bacteria Hyaline Casts Urine Yeast 10/28/22 05:23 WBC RBC Hgb Hct MCV MCH MCHC RDW Plt Count MPV Absolute Nucleated RBC Nucleated RBC % (auto) VBG pH 7.52 H VBG pCO2 49 VBG pO2 33 VBG HCO3 40 H VBG O2 Saturation 49.0 VBG Base Excess 15.8 Sodium Potassium Chloride Carbon Dioxide Anion Gap BUN Creatinine Estim Creat Clear Calc Estimated GFR Random Glucose Calcium Phosphorus Magnesium Total Bilirubin AST ALT Alkaline Phosphatase Ammonia B-Natriuretic Peptide Total Protein Albumin Procalcitonin Urine Color Urine Appearance Urine pH Ur Specific [place] Urine Protein Urine Glucose (UA) Urine Ketones Urine Blood Urine Nitrite Ur Leukocyte Esterase Urine RBC Urine WBC Ur Squamous Epith Cells Urine Bacteria Hyaline Casts Urine Yeast Microbiology Microbiology Results: Microbiology 10/25/22 00:10 Blood - Venous Blood Culture - Preliminary No growth after 48 hours. 10/25/22 00:10 Blood - Venous Blood Culture - Preliminary No growth after 48 hours. 10/18/22 19:00 Blood - Venous Blood Culture - Final Klebsiella pneumoniae 10/18/22 18:50 Blood - Venous Blood Culture - Final Klebsiella pneumoniae 10/19/22 12:49 Urine Other - Kidney Right Urine Culture - Final Klebsiella pneumoniae 10/18/22 Unknown Urine clean catch - Urine hess top Urine Culture - Final Klebsiella pneumoniae Quality Stroke Does the patient have a stroke diagnosis?: No VTE Prior VTE?: No VTE Risk Level:: Medical - moderate - high VTE Device Contraindication: N/A - Device Ordered VTE Drug Contraindication: N/A - Med Ordered Critical Care Time Critical Care Time (minutes): 60
[2022-10-28] MEDS: levoFLOXacin/D5W 750 MG/150 ML PIGGYBACK 100 MG IV (14:12)
[2022-10-28] MEDS: Midodrine HCl 10 MG TABLET PO ×2 (14:12→20:53)
[2022-10-28] MEDS: clonazePAM 1 MG TABLET PO ×2 (14:12→20:53)
[2022-10-28] MEDS: Dextrose 5 % 1,000 ML 75 ML IVCONT (14:12)
[2022-10-28] MEDS: Omeprazole 40 MG CAPSULE.DR PO (14:12)
[2022-10-28] MEDS: FLUoxetine HCl 20 MG CAPSULE PO (15:04)
[2022-10-28 15:55] LABS: CDiff Gene PCR NEGATIVE (Negative)
[2022-10-28] MEDS: Loperamide HCl 2 MG CAPSULE 4 MG PO (17:36)
[2022-10-28] MEDS: lamoTRIgine 25 MG TABLET 150 MG PO (20:53)
[2022-10-29] VITALS (29 sets, daily range): BP systolic 87–129; BP diastolic 56–75; PULSE 55–74; RESP 18–29; TEMP 37.4–37.9; O2SAT 90–100; BMI 23.3
[2022-10-29] MEDS: acetaZOLAMIDE sodium 500 MG VIAL IVPUSH ×3 (01:39→17:00)
[2022-10-29] MEDS: Dextrose 5 % 1,000 ML 75 ML IVCONT (03:24)
[2022-10-29 05:16] LABS: VBG Base Excess 16.5 mmol/L; VBG HCO3 40 mmol/L (22-26); VBG pCO2 48 mmHg; VBG pH 7.53 (7.32-7.43); VBG pO2 58 mmHg
[2022-10-29 05:28] LABS: Basophils Absolute Auto 0.1 X10*3/uL (0.0-0.2); Basophils Percent Auto 0.4 % (0-2); Eosinophils Absolute Auto 0.2 X10*3/uL (0.0-0.4); Eosinophils Percent Auto 0.7 % (0-4); Hemoglobin 8.3 g/dl (12.0-16.0); Imm Gran Abs Auto 1.02 X10*3/uL (0.00-0.03); Lymphocytes Absolute Auto 2.4 X10*3/uL (1.2-4.9); Lymphocytes Percent Auto 9.5 % (20-40); MANUAL DIFF FLAG SCAN; Mean Corpuscular HGB Conc 33.2 g/dl (31.0-35.0); Mean Corpuscular Hemoglobin 32.2 pg (27.0-33.0); Mean Corpuscular Volume 96.9 fL (80.0-98.0); Mean Platelet Volume 11.3 fL (9.4-12.3); Monocytes Absolute Auto 0.5 X10*3/uL (0.1-1.2); Monocytes Percent Auto 2.1 % (2-11); Neutrophils Absolute Auto 21.2 x10*3/uL (2.0-8.3); Neutrophils Percent Auto 83.3 % (45-73); Platelet Count 170 X10*3/uL (160-400); Red Blood Count 2.58 X10*6/uL (4.20-5.50); Red Cell Distribution Width 19.5 % (11.0-16.0); SCAN SMEAR FLAG 1; White Blood Count 25.5 X10*3/uL (4.8-10.8)
[2022-10-29 05:30] LABS: NRBC Pct Auto 1.8 /100WBC (0.0-0.2)
[2022-10-29 05:40] LABS: Venous Blood Gas Refer to POC result
[2022-10-29 05:42] LABS: Phosphorus 2.4 mg/dL (2.7-4.5)
[2022-10-29 05:46] LABS: Alanine Aminotransferase 17 U/L (0-31); Albumin Level 3.8 g/dL (3.5-5.0); Alkaline Phosphatase 154 U/L (39-117); Anion Gap 13 (12-20); Aspartate Amino Transferase 22 U/L (5-31); Blood Urea Nitrogen 13 mg/dL (9-16); Calcium 8.8 mg/dL (8.4-10.2); Carbon Dioxide 37 mmol/L (22-29); Chloride 97 mmol/L (96-108); Creatinine Clr Calc Pharmacy 68.4; Estimated Glomerular Filt Rate > 60; Glucose Random 96 mg/dL (60-115); Potassium 2.1 mmol/L (3.3-5.1); Sodium 145 mmol/L (135-145); Total Protein 5.5 g/dL (6.5-8.0)
[2022-10-29 05:48] LABS: SLIDE REVIEW VERIFIED
[2022-10-29] MEDS: Potassium Chloride/H20 40 MEQ/100 ML PIGGYBACK 50 MEQ IV ×2 (07:05→12:01)
[2022-10-29] MEDS: Furosemide 200 MG in 0.9 % Sodium Chloride 80 ML IVCONT (08:32)
[2022-10-29] MEDS: FLUoxetine HCl 20 MG CAPSULE PO (10:13)
[2022-10-29] MEDS: Omeprazole 40 MG CAPSULE.DR PO (10:13)
[2022-10-29] MEDS: Cyanocobalamin (Vitamin B-12) 500 MCG TABLET PO (10:13)
[2022-10-29] MEDS: Midodrine HCl 10 MG TABLET PO ×3 (10:13→19:44)
[2022-10-29] MEDS: Ascorbic Acid 250 MG TABLET PO (10:13)
[2022-10-29] MEDS: clonazePAM 1 MG TABLET PO ×3 (10:13→19:44)
[2022-10-29] MEDS: Thiamine HCL 100 MG TABLET PO (10:13)
[2022-10-29] MEDS: Sodium,Potassium Phosphates POWD.PACK 2 PACKET PO ×2 (10:14→14:16)
[2022-10-29] MEDS: HYDROmorphone HCl 0.5 MG/0.5 ML SYRINGE IVPUSH (10:33)
[2022-10-29] MEDS: Magnesium Sulfate/D5W 1 GM/100 ML PIGGYBACK IV (10:38)
[2022-10-29] MEDS: lamoTRIgine 25 MG TABLET 150 MG PO ×2 (12:00→19:44)
--- NOTE | 2022-10-29 12:14 | P.PNCC_ITS ---
Subjective Subjective Date of Service: 10/29/22 Interval History: Mrs. Davalos was admitted to ICU on Oct 19 with septic shock. 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 She has a history of multiple UTIs, thought secondary to small kidney stones.? Family tells me that ever since she had the gastric bypass about 2 years ago, her overall health, and functional status have gone downhill.? Furthermore they tell me that she wants to get down to a weight of 100 lbs (currently about 110 lbs). Up until the patient suffered a right femoral neck fx early September she was living alone in an apartment in [facility], and ambulated with a rolling walker.? She had help from a [employer].? According to the family, however, she was not very independent and was not doing particularly well.? After she broke her hip and had ORIF, she was transferred to [facility] for rehab on 10/02/2022.? She is supposed to be nonweightbearing and uses a wheelchair. On October 18, the patient was BIBA from [facility] of hypotension, fatigue, and weakness. ?Blood pressure was reportedly 60/30 at the senior living, and she had not urinated in over 6 hours.? In the ED, she was A&O.? SpO2 was 96% on room air, Heart rate 79, blood pressure 70/33, respiratory rate 18. Afebrile. Labs were notable for WBC 26.8, Hgb 7.0, BUN/creat 41/1.6 (baseline 0.7), sodium 127 (baseline 140), Tbili 2.4, AST 59, ALT 139, Alk Phos 208, lactate 3.7. CO VID-19 and influenza negative.? U/A 21-50 WBC, large LE, neg nitrite, 4+ bacti. Stool occult blood was positive. CT/CT abdomen pelvis showed a 9x4 mm obstructing proximal right ureteral stone w hydronephrosis, atelectasis/infiltrate at the left lung base along with a small left pleural effusion,? an enlarged fatty liver, and a large stool burden in the colon. She was vol resusc w 2 L crystalloid and 2 units RBCs.? She was given midodrine and Abx.? She remained hypotensive.? A central line was placed and she was started on Levophed and admitted to ICU early on 10/19.? Later that day she underwent cysto and right stent placement in the OR.? Blood and urine cx?s grew a partly sensitive Klebsiella, sensitive to the Levaquin she was on.? Hosp course was notable for precipitous thrombocytopenia.? Her pressor requirement and leukocytois began to improve, but on Oct 20, her oxygenation began to deteriorate.? She began to require supplemental oxygen.? CXR on 10/21 showed new diffuse heterogenous bilateral airspace opacities.? BNP was elevated to 886 (prior BNP last year was 51).? Chest CT on Oct 22 showed extensive heterogenous bilateral airspace opacities, some parts looking like pulmonary edema, some parts looking like pneumonia, all new since CT of 10/18.? Her oxygen requirement increased correspondingly, and she was up to a non-rebreather face mask by October 22. On October 23, venous duplex scan showed no DVT.? She underwent a CTPA which showed no pulmonary emboli, but her main pulmonary artery was enlarged, and her right ventricle was markedly enlarged, with RV:LV cavity ratio greater than 2.0.? Lung larios looked about the same as the prior CT on October 22, maybe quantitatively slightly worse.? Dr. Fajardo thought the hypoxemic respiratory failure was secondary to combination of pulmonary edema and pneumonia secondary to the Klebsiella bacteremia.? Echo showed normal LV size, wall thickness and hyperdynamic LV function.? Diastolic function was normal.? RV cavity size was moderately increased with moderately decreased systolic function.? Aortic valve and mitral valve were unremarkable.? There was moderate tricuspid regurgitation, with a dilated poorly collapsing IVC, and RVSP estimate 36 mm.? She was diuresed. By Oct 24, she was requiring HFNC + NRBFM.? She developed progressive hyperbilirubinemia with jaundice.? She was started on sildenafil.? On Oct 26, she was put on CPAP.? Diuresis was held bec of softer BPs.? In view of the CT features suggestive of pneumonia, Zosyn was added bec of failure of her oxygenation to improve, On Oct 27, on 100% HFNC + NRBFM, SpO2 only got up to high 80?s.? We put her on CPAP 10cm and started her on aggressive Lasix diuresis.? She started to dump urine, and through the day, her FiO2 requirement dropped steadily.? By yesterday morning she was on regular low flow NC oxygen.? The Lasix drip was continued.? She continued to need moderate dose Levophed, up to 0.1ug.? We restarted some of her home psych meds and her mental status and appropriateness improved dramatically. She continues on the Lasix drip today.? Overnight she was net negative > 2 liters.? The patient is calm -- maybe too calm, and a little too sleepy.? Otherwise, breathing easy.? On 4L NC, SpO2 was 100%. On 2L NC, SpO2 was up to 98-99%.? On room air, SpO2 was 88%.? On 1L SpO2 was low 90?s.? CVBG this morning 7.53/48/+16.? HR 58.? BP 91/57 on Levophed 0.14ug, and midodrine 10 mg tid.? Lasix is at 5mg/hr, D5W infusion is off.? No JVD at 30?.? Chest is CTA w normal exp phase.? RRR, normal S1 and S2, no murmur or gallops.? Abdomen is benign.? She has no peripheral edema of note. LABORATORY DATA:? Below.? Notably, WBC is up to 25.? Sodium this morning down to 145, potassium 2.1, BUN/creatinine down to 13/0.7, total bili down to 3.0, albumin up to 3.8. MICROBIOLOGY:? Last BCx?s on 10/28 were negative.? U/A on 10/27 showed 21-50 WBC, mod LE, no bacti, + yeast. My bedside ECHO 10/27:? LV cavity small with normal fxn.? RV cavity markedly dilated, with RV:LV cavity ratio > 2.0.? At least 1+ TR with CWD 3.2 m/sec (gradient 41 mm).? IVC 2.2 cm.? RVSP 56mm. IMPRESSION: 1. Obstructive uropathy with right ureteral stone.? Status post stent. 2. Urosepsis with Klebsiella.? 2? above.? Continues on Levaquin. 3. Severe, diffuse, heterogenous bilat pulmonary infiltrates, with some features looking like pneumonia (e.g. air bronchograms), most of the rest looking like pulmonary edema.? Diuresis appears to be working well.? Zosyn and the test dose of steroids didn't appear to help. 4. Acute respiratory failure. Improving. Now down almost to room air. 5. Severe right heart failure.? The cause and acuity are unclear.? Prior need for midodrine would be c/w RHF.? Continue diuresis.? Added Diamox. 6. Hypotension.? Cause not exactly clear.? Could very well be overdiuresis in the presence of RHF, but arguing against that is the fact that her renal indices are improving.? No longer appears to be septic.? Titrate off Levophed as possible.? Restarted midodrine at 10mg tid. 7. ELYSE.? Improving, despite vigorous diuresis. 8. Hyperbilirubinemia.? Coincident with acute right heart failure.? I.e. 2? hepatic congestion.? Improving numbers w diuresis, as expected. 9. ID.? Prime source is urinary Klebsiella.? Sensitive to Levaquin.? D/C'd the Zosyn as it didn't appear to be doing anything.? Asked ID to consult regarding leukocytosis and persistent hypotension. 10. Hypernatremia.? Resolved. 11. Severe hypokalemia.? Repleted. 12. Neuro/psych.? Underlying bipolar disorder and anxiety.? Home meds partially restarted.? I?ll cut the clonazepam down to 0.5 mg tid. 13. Nutrition. Regular diet.? Supplements encouraged. Critical Care Time (minutes): 60 Physical Exam Vital Signs: Vital Signs: Last Vital Signs Temp 99.3 F 10/29/22 12:00 Pulse 61 10/29/22 12:00 Resp 20 10/29/22 12:00 BP 91/57 L 10/29/22 12:00 Pulse Ox 98 10/29/22 12:00 O2 Del Method 10/29/22 12:00 O2 Flow Rate 2 10/29/22 12:00 FiO2 45 10/29/22 04:00 BMI result Body Mass Index 23.3 Objective Data Labs CBC & Chem 7: 10/29/22 05:10 10/29/22 19:14 Labs: Laboratory Results - last 24 hr 10/28/22 10/29/22 10/29/22 14:59 05:10 05:10 WBC 25.5 H RBC 2.58 L Hgb 8.3 L Hct 25.0 L MCV 96.9 MCH 32.2 MCHC 33.2 RDW 19.5 H Plt Count 170 MPV 11.3 Immature Gran % (Auto) 4.0 H Neut % (Auto) 83.3 H Lymph % (Auto) 9.5 L [place] % (Auto) 2.1 Eos % (Auto) 0.7 Baso % (Auto) 0.4 Lymph # (Auto) 2.4 [place] # (Auto) 0.5 Eos # (Auto) 0.2 Baso # (Auto) 0.1 Abs Immat Gran (auto) 1.02 H Absolute Neuts (auto) 21.2 H Absolute Nucleated RBC 0.460 H Nucleated RBC % (auto) 1.8 H Smear Tech's Comments VERIFIED VBG pH VBG pCO2 VBG pO2 VBG HCO3 VBG O2 Saturation VBG Base Excess Sodium Potassium Chloride Carbon Dioxide Anion Gap BUN Creatinine Estim Creat Clear Calc Estimated GFR Random Glucose Calcium Phosphorus 2.4 L Total Bilirubin AST ALT Alkaline Phosphatase Total Protein Albumin C. difficile Tox B Gene NEGATIVE 10/29/22 10/29/22 05:10 05:10 WBC RBC Hgb Hct MCV MCH MCHC RDW Plt Count MPV Immature Gran % (Auto) Neut % (Auto) Lymph % (Auto) [place] % (Auto) Eos % (Auto) Baso % (Auto) Lymph # (Auto) [place] # (Auto) Eos # (Auto) Baso # (Auto) Abs Immat Gran (auto) Absolute Neuts (auto) Absolute Nucleated RBC Nucleated RBC % (auto) Smear Tech's Comments VBG pH 7.53 H VBG pCO2 48 VBG pO2 58 VBG HCO3 40 H VBG O2 Saturation 84.0 VBG Base Excess 16.5 Sodium 145 Potassium 2.1 L* D Chloride 97 Carbon Dioxide 37 H Anion Gap 13 BUN 13 Creatinine 0.73 Estim Creat Clear Calc 68.4 Estimated GFR > 60 Random Glucose 96 Calcium 8.8 D Phosphorus Total Bilirubin 3.0 H AST 22 ALT 17 Alkaline Phosphatase 154 H Total Protein 5.5 L Albumin 3.8 C. difficile Tox B Gene Microbiology Microbiology Results: Microbiology 10/28/22 07:36 Blood - Venous Blood Culture - Preliminary No growth after 24 hours. 10/28/22 07:36 Blood - Venous Blood Culture - Preliminary No growth after 24 hours. 10/25/22 00:10 Blood - Venous Blood Culture - Preliminary No growth after 48 hours. 10/25/22 00:10 Blood - Venous Blood Culture - Preliminary No growth after 48 hours. 10/18/22 19:00 Blood - Venous Blood Culture - Final Klebsiella pneumoniae 10/18/22 18:50 Blood - Venous Blood Culture - Final Klebsiella pneumoniae 10/19/22 12:49 Urine Other - Kidney Right Urine Culture - Final Klebsiella pneumoniae 10/18/22 Unknown Urine clean catch - Urine hess top Urine Culture - Final Klebsiella pneumoniae Quality Stroke Does the patient have a stroke diagnosis?: No VTE Prior VTE?: No VTE Risk Level:: Medical - moderate - high VTE Device Contraindication: N/A - Device Ordered VTE Drug Contraindication: N/A - Med Ordered Critical Care Time Critical Care Time (minutes): 60
--- NOTE | 2022-10-29 13:40 | P.CNID_ITS ---
History of Present Illness Data of Consult Service Date: 10/29/22 Requesting physician: Rodrigo Casiano Primary Care Provider: Eusebio Payton DO, MD HPI Reason for consult: leukocytosis,hypotension She presents from SNF where she had been after treatment right femoral neck fracture. She has chronic hypotension and uses Midodrine. She had felt ill and given po Bactrim in ER on 10/10. She felt weak after and came in from SNF on 10/18 and admitted. She has had Klebsiella pneumonia from urine and not blood on 10/18 and 10/19. She had cystoscopy,right stent due to nephrolithiasis concerns on 10/19. She received Merem on 10/19 She received Levaquin on 10/19 and 10/20. She received Solumedrol 1 g on 10/19 and 125 mg on 10/27. She has leukocytosis increasing and received Zosyn on 10/26,10/27 and 10/28. She is on Norepinephrine. She has Tobar and rectal tube. Urinalysis shows no bacteria but yeast and has pyuria. Review of Systems Review of Systems: Yes all other systems are reviewed and are negative [facility] Past Medical History Medical History (Updated 10/29/22 @ 13:48 by Iona Garcia MD) Afib Anxiety Arthritis Asthma Bipolar 1 disorder Bronchitis Complications of gastric bypass surgery Hypokalemia Hypotension Leukocytosis Migraines PTSD (post-traumatic stress disorder) Functional capacity: wheelchair bound (baseline) Family History Family history: reviewed and not pertinent Surgical History Surgical History H/O: History of cholecystectomy Social History Social History Household Members: None Housing: Apartment Do you presently have visiting nurse or other home services: Yes Alcohol intake: never Patient Tobacco Use Status: Former Tobacco user Quit Date: 2018 Tobacco use type: Cigarette Smoked in Last 30 Days: No Use of substances other than those prescribed or required for medical reasons: No Currently Displaying Signs/Symptoms of Drug Intoxication Withdrawal: No Have you been hit, kicked, punched, or otherwise hurt by someone within the past year? If so, by whom?: No Do you feel safe in your current relationship?: No Current Relationship Is there a partner from a previous relationship who is making you feel unsafe now?: No Are you made to feel afraid or neglected: No Advance Directives: No Advance Directives Information Provided: No Do you have thoughts of harming others: None Do you have a plan to hurt others: No Plan Recently lost weight without trying: Yes How much weight loss: Unsure Eating poorly because of decreased appetite: No Nutrition screen score: 4 Patient : No : No Poor oral hygiene: No Current occupational status: disabled Travel History Ebola Risk: Travel/Contact With Anyone From Affected Area/s: No Has Patient Experienced Ebola Symptoms: No Meds Allergies Allergy/AdvReac Type Severity Reaction Status Date / Time cephalexin Allergy Swelling Verified 02/07/21 18:19 ciprofloxacin [From Cipro] Allergy Swelling Verified 02/07/21 18:19 coconut oil Allergy Swelling Verified 10/19/22 01:50 duloxetine [From Cymbalta] Allergy Swelling Verified 02/07/21 18:19 Penicillins Allergy Swelling Verified 02/07/21 18:19 Active Medications: Current Medications Acetazolamide (Acetazolamide Sodium 500 Mg Vial) 500 mg IVPUSH Q8H [facility] Last Admin: 10/29/22 10:13 Dose: 500 mg Ascorbic Acid (Ascorbic Acid 250 Mg Tablet) 250 mg PO DAILY [facility] Last Admin: 10/29/22 10:13 Dose: 250 mg Clonazepam (Clonazepam 1 Mg Tablet) 1 mg PO TID [facility] Last Admin: 10/29/22 10:13 Dose: 1 mg Cyanocobalamin (Cyanocobalamin (Vitamin B-12) 500 Mcg Tablet) 500 mcg PO DAILY [facility] Last Admin: 10/29/22 10:13 Dose: 500 mcg Fentanyl (Fentanyl Citrate/Pf 100 Mcg/2 Ml Vial) 25 mcg IVPUSH Q5M PRN; Protocol PRN Reason: pain or WOB Last Admin: 10/27/22 12:41 Dose: 25 mcg Fluoxetine HCl (Fluoxetine Hcl 20 Mg Capsule) 20 mg PO DAILY [facility] Last Admin: 10/29/22 10:13 Dose: 20 mg Hydromorphone HCl (Hydromorphone Hcl 0.5 Mg/0.5 Ml Syringe) 0.5 mg IVPUSH Q1H PRN; Protocol PRN Reason: Pain, Severe (Pain Scale 7-10) Last Admin: 10/29/22 10:33 Dose: 0.5 mg Norepinephrine Bitartrate (Levophed) 8 mg in 250 mls @ 0 mls/hr IVCONT .Q0M [facility]; Protocol Last Titration: 10/29/22 07:15 Dose: 0.16 mcg/kg/min, 14.97 mls/hr Furosemide 200 mg/ Sodium (Chloride) 100 mls @ 1.5 mls/hr IVCONT .Q24H [facility] Last Admin: 10/29/22 08:32 Dose: 5 mg/hr, 2.5 mls/hr Levofloxacin (Levaquin) 750 mg in 150 mls @ 100 mls/hr IV Q24H [facility] Last Infusion: 10/28/22 16:15 Dose: Infused Lamotrigine (Lamotrigine 25 Mg Tablet) 150 mg PO BID [facility] Last Admin: 10/29/22 12:00 Dose: 150 mg Midodrine (Midodrine Hcl 10 Mg Tablet) 10 mg PO TID [facility] Last Admin: 10/29/22 10:13 Dose: 10 mg Non-Formulary Medication (Bacillus Coagulans-Inulin [Probiotic Formula (Inulin)]) 1 cap PO DAILY [facility] Non-Formulary Medication (Cholecalciferol (Vitamin D3)) 1,250 mcg PO [facility] Omeprazole (Omeprazole 40 Mg Capsule.Dr) 40 mg PO DAILY [facility] Last Admin: 10/29/22 10:13 Dose: 40 mg Ondansetron HCl (Ondansetron Hcl 4 Mg/2 Ml Vial) 4 mg IVPUSH Q6H PRN PRN Reason: Nausea Last Admin: 10/25/22 14:31 Dose: 4 mg Thiamine HCl (Thiamine Hcl 100 Mg Tablet) 100 mg PO DAILY [facility] Last Admin: 10/29/22 10:13 Dose: 100 mg Home Medications Medication Instructions Recorded Confirmed Last Taken Type acetaminophen 325 mg tablet 650 mg PO Q6H PRN Pain 10/19/22 10/19/22 Unknown History albuterol sulfate 90 mcg/actuation 2 puff inhalation Q6H PRN Wheezing 10/19/22 10/19/22 Unknown History aerosol inhaler ascorbic acid (vitamin C) 250 mg 250 mg PO DAILY 10/19/22 10/19/22 Unknown History tablet bacillus coagulans-inulin 1 1 cap PO DAILY 10/19/22 10/19/22 Unknown History billion cell-250 mg capsule (Probiotic Formula (inulin)) calcium carbonate 500 mg calcium 1,000 mg PO BID 10/19/22 10/19/22 Unknown H istory (1,250 mg) chewable tablet cholecalciferol (vitamin D3) 1,250 1,250 mcg PO WE 10/19/22 10/19/22 Unknown History mcg (50,000 unit) tablet clonazepam 1 mg tablet 1 mg PO TID 10/19/22 10/19/22 Unknown History cyanocobalamin (vitamin B-12) 500 500 mcg PO DAILY 10/19/22 10/19/22 Unknown History mcg tablet fluoxetine 20 mg tablet 20 mg PO DAILY 10/19/22 10/19/22 Unknown History fluticasone 500 mcg-salmeterol 50 1 inh inhalation BID 10/19/22 10/19/22 Unknown History mcg/dose blistr powdr for inhalation (Wixela Inhub) fluticasone propionate 50 1 spray intranasal DAILY 10/19/22 10/19/22 Unknown History mcg/actuation nasal spray,suspension lamotrigine 150 mg tablet 150 mg PO BID 10/19/22 10/19/22 Unknown History midodrine 5 mg tablet 5 mg PO TID 10/19/22 10/19/22 Unknown History olanzapine 2.5 mg tablet (Zyprexa) 2.5 mg PO BEDTIME PRN Anxiety 10/19/22 10/19/22 Unknown History omeprazole 40 mg capsule,delayed 40 mg PO DAILY 10/19/22 10/19/22 Unknown History release ondansetron HCl 4 mg tablet 4 mg PO Q8H PRN Nausea 10/19/22 10/19/22 Unknown History risperidone 1 mg tablet (Risperdal) 1 mg PO DAILY 10/19/22 10/19/22 Unknown History risperidone 2 mg tablet 2 mg PO BEDTIME 10/19/22 10/19/22 Unknown History rivaroxaban 20 mg tablet (Xarelto) 20 mg PO DAILY@1700 10/19/22 10/19/22 Unknown History sucralfate 100 mg/mL oral 10 ml PO QID 10/19/22 10/19/22 Unknown History suspension thiamine HCl (vitamin B1) 100 mg 100 mg PO DAILY 10/19/22 10/19/22 Unknown History tablet topiramate 25 mg tablet 25 mg PO DAILY 10/19/22 10/19/22 Unknown History topiramate 25 mg tablet 75 mg PO BEDTIME 10/19/22 10/19/22 Unknown History Physical Exam Vital Signs: Vital Signs: Last Vital Signs Temp 99.3 F 10/29/22 12:00 Pulse 68 10/29/22 13:00 Resp 21 H 10/29/22 13:00 BP 101/68 10/29/22 13:00 Pulse Ox 100 10/29/22 13:00 O2 Del Method 10/29/22 13:00 O2 Flow Rate 2 10/29/22 13:00 FiO2 45 10/29/22 04:00 BMI result Body Mass Index 23.3 Const: Other: mouth slight thrush right General: cooperative HEENT: Head: Yes normal to inspection Face and sinus: Yes normal facial exam Mouth: Normal oral and palatal mucosa present Teeth and gingiva: dentition normal Eyes: General: appearance normal, both eyes and all related structures Pupils: Equal, round and reactive pupils present Resp: Effort & Inspection: normal respiratory effort Cardio: Rate: regular rate Rhythm: regular rhythm GI: Palpation (GI): Soft to palpation and nontender : General: Yes no CVA tenderness Back/Spine/Pelvis: Back: no CVA tenderness Skin: Other: multiple purpuric areas on face,chest General skin exam: no rashes or lesions noted Neuro: General: moves all extremities Cranial nerves: Yes Equal, round and reactive pupils present Extrem: General: Yes normal to inspection Psych: Appearance: grossly normal Results Labs CBC & Chem 7: 10/29/22 05:10 10/29/22 05:10 Labs: Short CBC 10/29/22 Range/Units 05:10 WBC 25.5 H (4.8-10.8) X10*3/uL Hgb 8.3 L (12.0-16.0) g/dl Hct 25.0 L (37.0-47.0) % Plt Count 170 (160-400) X10*3/uL BMP 10/29/22 05:10 Sodium 145 Potassium 2.1 L* D Chloride 97 Carbon Dioxide 37 H BUN 13 Creatinine 0.73 Calcium 8.8 D Liver Function 10/29/22 Range/Units 05:10 Total Bilirubin 3.0 H (0.0-1.0) mg/dL AST 22 (5-31) U/L ALT 17 (0-31) U/L Alkaline Phosphatase 154 H (39-117) U/L Albumin 3.8 (3.5-5.0) g/dL Microbiology Microbiology Results: Microbiology 10/28/22 07:36 Blood - Venous Blood Culture - Preliminary No growth after 24 hours. 10/28/22 07:36 Blood - Venous Blood Culture - Preliminary No growth after 24 hours. 10/25/22 00:10 Blood - Venous Blood Culture - Preliminary No growth after 48 hours. 10/25/22 00:10 Blood - Venous Blood Culture - Preliminary No growth after 48 hours. 10/18/22 19:00 Blood - Venous Blood Culture - Final Klebsiella pneumoniae 10/18/22 18:50 Blood - Venous Blood Culture - Final Klebsiella pneumoniae 10/19/22 12:49 Urine Other - Kidney Right Urine Culture - Final Klebsiella pneumoniae 10/18/22 Unknown Urine clean catch - Urine hess top Urine Culture - Final Klebsiella pneumoniae Assessment and Plan (1) Leukocytosis: Status: Acute She has leukocytosis and hypotension She has chronic hypotension and is on Midodrine Reasons for leukocytosis include steroids but more likely leukemoid reaction from antibiotic associated colitis or ileus Fungal infection possible fungemia less likely but possible. (2) Bacteremia due to Klebsiella pneumoniae: Status: Acute (3) Septic shock: Status: Acute Plan Consider CT abdomen and pelvis recheck for antibiotic associated colitis and stent position. Hold Levaquin as not sure what covering at this point. Consider Diflucan or Cancidas cover possible yeast urinary tract.
[2022-10-29] MEDS: levoFLOXacin/D5W 750 MG/150 ML PIGGYBACK 100 MG IV (14:18)
--- NOTE | 2022-10-29 15:38 | MHC.SL.SWA ---
Addendum entered and electronically signed by Anastasia Harrell MA, CCC-HAIR BOILER 10/29/22 16:39: D.S. Original Note: Risk of Aspiration Due to: Lethargy Medically Fragile Weak Cough Weak Voice Dysphasia Diet Status: Recommend pt continue with pureed solids (NDD1), thin liquids, pills crushed in puree. Pt requires assistance during feeding and full supervision. Monitor for s/s of aspiration. Aspiration precautions apply. Liquid Consistency and Strategies for Safe Swallow: Liquid Intake Recommendation: Thin Liquid Intake Strategies: Small Sips Solid Food Consistency: Dietary Recommendations: Pureed (NDD1) Additional Modifications to Solid Foods: Oral Medication Intake: Crushed with Puree Please contact the pharmacy regarding appropriate crushable or liquid drug formulations that are available whenever modified delivery is recommended. Compensatory Strategies and Precautions to be Taken for Safe Swallow: Sitting Upright (90 deg) Liquids from Cup Liquids from Spoon Liquids from Straw Small Bites and Sips Rate of Ingestion Change Supervision While Eating and Drinking for Safe Swallow: Total Assistance (1:1) Recommendation for Speech: Outpatient Speech Therapy Inpatient Speech Therapy Comment: Recommend pt continue with pureed solids (NDD1), thin liquids, pills crushed in puree. Pt requires assistance during feeding and full supervision. Monitor for s/s of aspiration. Aspiration precautions apply. Direct Support Staff Member Clinican/Clinical Fellow: Yes: Radha Cervantes M.A., -HAIR BOILER Supervisory Statement: I have reviewed and agree with the student/clinical fellow's documentation: Yes Speech Language Pathologist: Anastasia Harrell M.A., CCC-HAIR BOILER
[2022-10-29] MEDS: Octreotide Acetate 100 MCG/ML AMPUL 50 MCG IVPUSH (17:00)
[2022-10-29] MEDS: Cholestyramine (With Sugar) 4 GM POWD.PACK 2 GM PO (17:00)
[2022-10-29] MEDS: ondansetron HCL 4 MG/2 ML VIAL IVPUSH (17:07)
[2022-10-29 19:50] LABS: Anion Gap 13 (12-20); Blood Urea Nitrogen 12 mg/dL (9-16); Calcium 8.4 mg/dL (8.4-10.2); Carbon Dioxide 33 mmol/L (22-29); Chloride 99 mmol/L (96-108); Creatinine Clr Calc Pharmacy 74.6; Estimated Glomerular Filt Rate > 60; Glucose Random 53 mg/dL (60-115); Magnesium 2.1 mg/dL (1.6-2.6); Phosphorus 3.7 mg/dL (2.7-4.5); Potassium 2.6 mmol/L (3.3-5.1); Sodium 142 mmol/L (135-145)
[2022-10-29] MEDS: Potassium Chloride Packet 20 MEQ PACKET 40 MEQ PO (21:33)
[2022-10-29] MEDS: Potassium Chloride/H20 40 MEQ/100 ML PIGGYBACK 100 MEQ IV (21:36)
[2022-10-29 22:07] LABS: Glucose, Whole Blood 112 mg/dL (60-115)
[2022-10-30] VITALS (23 sets, daily range): BP systolic 79–112; BP diastolic 45–69; PULSE 50–111; RESP 16–32; TEMP 36.5–37.9; O2SAT 88–100; BMI 20.9
[2022-10-30] MEDS: Octreotide Acetate 100 MCG/ML AMPUL 50 MCG IVPUSH ×3 (00:20→17:07)
[2022-10-30] MEDS: acetaZOLAMIDE sodium 500 MG VIAL IVPUSH ×3 (01:37→17:08)
[2022-10-30 05:30] LABS: VBG Base Excess 12.9 mmol/L; VBG HCO3 38 mmol/L (22-26); VBG pCO2 52 mmHg; VBG pH 7.46 (7.32-7.43); VBG pO2 45 mmHg
[2022-10-30 05:36] LABS: Venous Blood Gas Refer to POC result
[2022-10-30 05:39] LABS: Hematocrit 23.6 % (37.0-47.0); Hemoglobin 7.6 g/dl (12.0-16.0); Mean Corpuscular HGB Conc 32.2 g/dl (31.0-35.0); Mean Corpuscular Hemoglobin 32.1 pg (27.0-33.0); Mean Corpuscular Volume 99.6 fL (80.0-98.0); Mean Platelet Volume 11.3 fL (9.4-12.3); NRBC Pct Auto 0.6 /100WBC (0.0-0.2); Platelet Count 138 X10*3/uL (160-400); Red Blood Count 2.37 X10*6/uL (4.20-5.50); Red Cell Distribution Width 20.9 % (11.0-16.0); White Blood Count 16.2 X10*3/uL (4.8-10.8)
[2022-10-30 06:06] LABS: Alanine Aminotransferase 14 U/L (0-31); Alkaline Phosphatase 114 U/L (39-117); Anion Gap 13 (12-20); Aspartate Amino Transferase 21 U/L (5-31); Bilirubin Total 2.3 mg/dL (0.0-1.0); Blood Urea Nitrogen 11 mg/dL (9-16); Calcium 8.1 mg/dL (8.4-10.2); Carbon Dioxide 32 mmol/L (22-29); Chloride 102 mmol/L (96-108); Creatinine Clr Calc Pharmacy 74.6; Estimated Glomerular Filt Rate > 60; Glucose Random 74 mg/dL (60-115); Magnesium 2.1 mg/dL (1.6-2.6); Phosphorus 4.2 mg/dL (2.7-4.5); Potassium 2.6 mmol/L (3.3-5.1); Sodium 144 mmol/L (135-145); Total Protein 4.7 g/dL (6.5-8.0)
[2022-10-30 06:07] LABS: B Type Natriuretic Peptide 1083 pg/mL (<100)
[2022-10-30] MEDS: Potassium Chloride Packet 20 MEQ PACKET 40 MEQ PO (08:38)
[2022-10-30] MEDS: clonazePAM 0.5 MG TABLET PO ×3 (08:38→21:42)
[2022-10-30] MEDS: Thiamine HCL 100 MG TABLET PO (08:38)
[2022-10-30] MEDS: Cyanocobalamin (Vitamin B-12) 500 MCG TABLET PO (08:39)
[2022-10-30] MEDS: Cholestyramine (With Sugar) 4 GM POWD.PACK 2 GM PO ×2 (08:39→17:08)
[2022-10-30] MEDS: Omeprazole 40 MG CAPSULE.DR PO (08:39)
[2022-10-30] MEDS: Midodrine HCl 10 MG TABLET PO ×3 (08:39→21:42)
[2022-10-30] MEDS: Ascorbic Acid 250 MG TABLET PO (08:39)
[2022-10-30] MEDS: FLUoxetine HCl 20 MG CAPSULE PO (08:45)
[2022-10-30] MEDS: Potassium Chloride/H20 40 MEQ/100 ML PIGGYBACK 50 MEQ IV (08:45)
[2022-10-30] MEDS: lamoTRIgine 25 MG TABLET 150 MG PO ×2 (09:01→21:42)
[2022-10-30] MEDS: Albumin Human 25 % 100 ML IV ×3 (09:14→12:29)
--- NOTE | 2022-10-30 10:25 | MHC.CLN ---
F/U SPOKE WITH PT AT REQUEST OF PT WITH POOR PO CONSUMING ONLY AFGHAN ICE, ENSURE PLUS SUPPLEMENT SIPS, AND WATER PT REPORTED SHE CAN NOT EAT R/T INCREASED DIARRHEA. PT ATTRIBUTES THIS TO MY IBS AND DUMPING SYNDROME. PT STATED SHE FEELS VERY EMBARRASSED ABOUT NUMBER OF TIMES SHE IS HAVING BM AND THEREFORE CHOOSING NOT TO EAT. MD AND NSG AWARE/NOTIFIED DIET RX: PUREED -APPROPRIATE PT RECEIVING ENSURE BID TO INCREASE KCALS PROVIDES 700KCALS, 40G PROTEIN WITH 100% ACCEPTANCE. PT SIPS ON THIS THROUGHOUT THE DAY, BUT NSG REPORTS NEEDS CONSTANT ENCOURAGEMENT TO ACCEPT PO CONTINUE TO MONITOR PO INTAKE CLOSELY
[2022-10-30] MEDS: Fluconazole in NaCl,Iso-Osm 400 MG/200 ML PIGGYBACK 100 MG IV (10:42)
--- NOTE | 2022-10-30 12:20 | MHC.SL.SWA ---
Speech Pathologist Impression: Risk of Aspiration Due to: Lethargy Medically Fragile Weak Cough Weak Voice Dysphasia Diet Status: Recommend pt continue with pureed solids (NDD1), thin liquids, pills crushed in puree. Pt requires assistance during feeding and full supervision. Monitor for s/s of aspiration. Aspiration precautions apply. Recommend attempting small frequent meals throughout day to encourage increased po intake. Liquid Consistency and Strategies for Safe Swallow: Liquid Intake Recommendation: Thin Liquid Intake Strategies: Small Sips Solid Food Consistency: Dietary Recommendations: Pureed (NDD1) Additional Modifications to Solid Foods: Oral Medication Intake: Crushed with Puree Please contact the pharmacy regarding appropriate crushable or liquid drug formulations that are available whenever modified delivery is recommended. Compensatory Strategies and Precautions to be Taken for Safe Swallow: Sitting Upright (90 deg) Oral Check Supervision While Eating and Drinking for Safe Swallow: Total Assistance (1:1) Foods to Avoid: Swallowing Recommended Treatments: Recommendation for Speech: Outpatient Speech Therapy Inpatient Speech Therapy Comment: Pt seen for bedside dysphagia tx this a.m. with lunch tray brought to room by [employer]. Patient had reportedly requested water, and this was brought as well. Patient took straw sips of water, with good timing of sips and swallow, no clinical signs of aspiration. Patient agreed to try slice of banana to eval for texture change, on single piece of banana, patient produced a prolonged period of mastication, noted to bring sheet to mouth to wipe in the middle of chewing the bolus, eventually producing swallow on part of the bolus with some residual in mouth which was cleared with a sip of water. Patient was offered another piece of banana but declined, saying it is too difficult to chew. Patient accepted bite of puree chicken from lunch tray, had mildly prolonged oral phase followed by timely swallow, no clinical signs of aspiration. Patient then declined all of the remaining solid food on tray. Patient accepted drinking some grape juice, taking a full cup by straw with no clinical signs of aspiration. However patient c/o that it tastes gritty and that all the food taken had a gritty taste. Patient declined taking any of ensure shake, but asked that it be taken off tray for later. Two other shakes were still on table, both were lukewarm feeling and discarded. Recommend continue with current diet of PUREE (NDD1) with THIN liquids, pills crushed in puree. Patient is taking very little by mouth, is willing to try different foods, but does not persist beyond a few bites. Will need ongoing encouragement to eat, and would benefit from being offered small meals throughout the day. Frequency/Duration: Date Range for Service Req: Timeline to reassess: Fruit I Farmworker Clinican/Clinical Fellow: No Supervisory Statement: I have reviewed and agree with the student/clinical fellow's documentation: Yes Speech Language Pathologist: Rain Rodriguez M.A., CCC-BENCH CHEMIST
[2022-10-30 12:32] LABS: Hematocrit 21.9 % (37.0-47.0)
[2022-10-30 12:34] LABS: Hemoglobin 6.9 g/dl (12.0-16.0)
--- NOTE | 2022-10-30 15:31 | P.PNCC_ITS ---
Subjective Subjective Date of Service: 10/30/22 Interval History: Mrs. Davalos was admitted to ICU on Oct 19 with septic shock. The patient is a 51 yo F with PMHx of anxiety, bipolar disorder, asthma, bronchitis, complications from gastric bypass surgery, hypokalemia, PAfib, chronic hypotension on midodrine, migraines, and PTSD.? She has a history of multiple UTIs, thought secondary to small kidney stones.? Family tells me that ever since she had the gastric bypass about 2 years ago, her overall health, and functional status have gone downhill.? Furthermore they tell me that she (inappropriately) wants to get down to a weight of 100 lbs (currently about 110 lbs). She?s on mult psych meds, but not on any anticoagulation. Up until the patient suffered a right femoral neck fx early September she was living alone in an apartment in [place], and ambulated with a rolling walker.? She had help from a OFFICE ASSISTANT RECEPTIONIST.? According to the family, she was not very independent and was not doing particularly well.? After she broke her hip and had ORIF, she was transferred to [facility] for rehab on 10/02/2022.? She is supposed to be nonweightbearing and uses a wheelchair.? 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 Also has incomplete mobility of both arms (not stroke related, AFAIK). On October 18, the patient was BIBA from [facility] of hypotension, f atigue, and weakness. ?She was hypotensive in the ED, but breathing easy w SpO2 96% on room air. Afebrile. Labs were notable for WBC 26.8, Hgb 7.0, BUN/creat 41/1.6 (baseline 0.7), sodium 127, Tbili 2.4, AST 59, ALT 139, lactate 3.7. ?COVID-19 and influenza negative.? U/A 21-50 WBC, large LE, neg nitrite, 4+ bacti. ?Stool occult blood was positive. ?CT abdomen pelvis showed a 9 mm obstructing proximal right ureteral stone w hydronephrosis, small area atelectasis/infiltrate at the left lung base along with a small left pleural effusion, an enlarged fatty liver, and a large stool burden in the colon. She was vol resusc w crystalloid and 2 units RBCs.? She was given midodrine and Abx.? She remained hypotensive.? A central line was placed and she was started on Levophed and admitted to ICU early on 10/19.? Later that day she underwent cysto and right stent placement in the OR.? Blood and urine cx?s grew a partly sensitive Klebsiella, sensitive to the Levaquin she?d been started on. Hosp course was notable for precipitous thrombocytopenia that ultimately resolved.? Her pressor requirement and leukocytois began to improve, but on Oct 20, her oxygenation began to deteriorate and she required supplemental oxygen.? CXR on 10/21 showed new bilateral airspace opacities.? BNP was elevated to 886 (prior BNP was 51).? Chest CT on Oct 22 showed extensive heterogenous bilateral airspace opacities, some parts looking like pulmonary edema, some parts looking like pneumonia, all new since CT of 10/18.? Her oxygen requirement increased further. On October 23, venous duplex scan showed no DVT.? She underwent a CTPA which showed no pulmonary emboli, but her main pulmonary artery was enlarged, and her right ventricle was markedly enlarged, with RV:LV cavity ratio greater than 2.0.? The hypoxemic respiratory failure was thought secondary to combination of pulmonary edema and pneumonia secondary to the Klebsiella bacteremia.? Echo showed normal LV size, wall thickness and hyperdynamic LV function.? Diastolic function was normal.? RV cavity size was moderately increased with moderately decreased systolic function.? Aortic valve and mitral valve were unremarkable.? There was moderate tricuspid regurgitation, with a dilated poorly collapsing IVC, and RVSP estimate 36 mm.? She was diuresed. By Oct 24, she was requiring HFNC + NRBFM.? She developed progressive hyper bilirubinemia with jaundice.? She was started on sildenafil.? On Oct 26, she was put on CPAP.? In view of the CT features suggestive of pneumonia, Zosyn was added bec of failure of her oxygenation to improve, On Oct 27, on 100% HFNC + NRBFM, SpO2 only got up to high 80?s. My bedside ECHO that day:? LV cavity small with normal fxn.? RV cavity markedly dilated, with RV:LV cavity ratio > 2.0.? At least 1+ TR with CWD 3.2 m/sec (gradient 41 mm).? IVC 2.2 cm.? RVSP 56mm. We put her on CPAP and aggressive Lasix diuresis.? She started to dump urine, and subsequent to that, her FiO2 requirement dropped rapidly and steadily.? By the next morning she was on regular low flow NC oxygen.? The Lasix drip was continued.? She continued to need moderate dose Levophed, up to 0.1ug.? We restarted some of her home psych meds and her mental status and appropriateness improved dramatically.? She continued on the Lasix drip yesterda the he he can eat may she is a y, with continuously improving renal indices.? We finally stopped the Lasix drip last night when her BP dropped into the 70s.? We cut her Klonopin back from 1mg tid to 0.5 mg tid bec she was too sedated.? Yesterday she was started on fluconazole bec of yeast in her urine, and she was started on Questran and octreotide 50 ug IV q8hr for diarrhea, possibly a secretory diarrhea. ?We stopped the Levaquin, per ID. Overnight she was net negative 1200cc.? She?s net positive 4 liters for this hospitalization.? Today she?s awake and calm.? Breathing easy.? On 3L NC, SpO2 91%.? CVBG this morning 7.46/52/+12 (on Diamox).? HR 57.? BP 98/60 w Levophed off, on midodrine 10 mg tid.? No JVD at 30?.? Chest is CTA w normal exp phase.? RRR, normal S1 and S2, no murmur or gallops.? Abdomen is benign.? No diarrhea today, only one smear of brown stool.? She has no peripheral edema of note. LABORATORY DATA:? Below.? Notably, WBC is down to 16.? Hb this morning down to 7.6, then 6.9 this afternoon.? Plat 138K.? Sodium this morning 144, potassium 2.6, BUN/creatinine stable 11/0.7, total bili down to 2.3, BNP down to 1083, albumin down to 3.0, . MICROBIOLOGY:? Last BCx?s on 10/28 were negative.? U/A on 10/27 showed 21-50 WBC, mod LE, no bacti, + yeast. IMPRESSION: 1. Obstructive uropathy with right ureteral stone.? Status post stent. 2. Urosepsis with Klebsiella.? 2? above.? Finished course of Levaquin. 3. Severe, diffuse, bilat pulmonary infiltrates.? From the way her hypoxemia responded to Lasix, one has to assume that was pulmonary edema. 4. Acute respiratory failure. ?Improving. ?Now down almost to room air. 5. Severe right heart failure.? The cause and acuity are unclear (other than it?s not a PE). ?Prior need for midodrine would be c/w chronic RHF.? Continue diuresis w Lasix 40 mg po bid. 6. Hypotension.? Cause not exactly clear.? Hard to make that case that she was overdiuresed, given that her renal indices were continuing to increase.? No longer appears to be septic.? Levophed is now off and she?s on midodrine 10mg tid. 7. ELYSE.? Improved despite vigorous diuresis. 8. Hyperbilirubinemia.? Coincident with acute right heart failure.? I.e. 2? hepatic congestion.? Improved BNP w diuresis, as expected. 9. ID.? Prime source is urinary Klebsiella.? Sensitive to Levaquin.? WBC now coming down after starting her on fluconazole for urinary yeast. 10. Hypernatremia.? Resolved. 11. Severe hypokalemia.? Repleting. ?Recheck this evening. 12. Diarrhea.? Improved with Questran and octreotide.? Continue both for now.? Don?t see any need for an abdominal CT at this time. 13. Anemia.? ? Source.? Her stool was positive for occult blood on admission.? Will recheck.? She?s not on any anticoagulation for DVT prophylaxis. 14. Neuro/psych.? Underlying bipolar disorder and anxiety.? Home meds partially restarted.? I cut the clonazepam down to 0.5 mg tid and she?s much more awake.? I don?t see any need at the current time for her topiramate, Risperdal, and Zyprexa that she was on at home. 15. Metabolic alkalosis.? Continue Diamox for a couple more days. 16. Nutrition. ?Regular diet.? Supplements encouraged.? She?s a very picky eater. 17. DVT prophylaxis.? Seq Teds.? Not on pharmacological DVT proph.? Duplex scan was neg 10/23. Stable [place] [facility] [place] Will sign out to hospitalist. Critical Care Time (minutes): 0 Physical Exam Vital Signs: Vital Signs: Last Vital Signs Temp 99.9 F 10/30/22 13:00 Pulse 59 10/30/22 13:00 Resp 25 H 10/30/22 13:00 BP 98/59 L 10/30/22 13:00 Pulse Ox 95 10/30/22 13:00 O2 Del Method 10/30/22 13:00 O2 Flow Rate 3 10/30/22 13:00 FiO2 45 10/29/22 04:00 BMI result Body Mass Index 20.9 Objective Data Labs CBC & Chem 7: 10/30/22 12:21 10/30/22 05:25 Labs: Laboratory Results - last 24 hr 10/29/22 10/29/22 10/30/22 19:14 21:07 05:24 WBC RBC Hgb Hct MCV MCH MCHC RDW Plt Count MPV Absolute Nucleated RBC Nucleated RBC % (auto) VBG pH 7.46 H VBG pCO2 52 VBG pO2 45 VBG HCO3 38 H VBG O2 Saturation 70.0 VBG Base Excess 12.9 Sodium 142 Potassium 2.6 L D Chloride 99 Carbon Dioxide 33 H Anion Gap 13 BUN 12 Creatinine 0.66 Estim Creat Clear Calc 74.6 Estimated GFR > 60 POC Glucose 112 Random Glucose 53 L* Calcium 8.4 Phosphorus 3.7 Magnesium 2.1 Total Bilirubin AST ALT Alkaline Phosphatase B-Natriuretic Peptide Total Protein Albumin 10/30/22 10/30/22 10/30/22 05:25 05:25 05:25 WBC 16.2 H RBC 2.37 L Hgb 7.6 L Hct 23.6 L MCV 99.6 H MCH 32.1 MCHC 32.2 RDW 20.9 H Plt Count 138 L MPV 11.3 Absolute Nucleated RBC 0.090 H Nucleated RBC % (auto) 0.6 H VBG pH VBG pCO2 VBG pO2 VBG HCO3 VBG O2 Saturation VBG Base Excess Sodium 144 Potassium 2.6 L Chloride 102 Carbon Dioxide 32 H Anion Gap 13 BUN 11 Creatinine 0.66 Estim Creat Clear Calc 74.6 Estimated GFR > 60 POC Glucose Random Glucose 74 Calcium 8.1 L Phosphorus 4.2 Magnesium 2.1 Total Bilirubin 2.3 H AST 21 ALT 14 Alkaline Phosphatase 114 B-Natriuretic Peptide 1083 H Total Protein 4.7 L Albumin 3.0 L 10/30/22 12:21 WBC RBC Hgb 6.9 L* Hct 21.9 L MCV MCH MCHC RDW Plt Count MPV Absolute Nucleated RBC Nucleated RBC % (auto) VBG pH VBG pCO2 VBG pO2 VBG HCO3 VBG O2 Saturation VBG Base Excess Sodium Potassium Chloride Carbon Dioxide Anion Gap BUN Creatinine Estim Creat Clear Calc Estimated GFR POC Glucose Random Glucose Calcium Phosphorus Magnesium Total Bilirubin AST ALT Alkaline Phosphatase B-Natriuretic Peptide Total Protein Albumin Microbiology Microbiology Results: Microbiology 10/28/22 07:36 Blood - Venous Blood Culture - Preliminary No growth after 48 hours. 10/28/22 07:36 Blood - Venous Blood Culture - Preliminary No growth after 48 hours. 10/25/22 00:10 Blood - Venous Blood Culture - Final No growth after 5 days. 10/25/22 00:10 Blood - Venous Blood Culture - Final No growth after 5 days. 10/18/22 19:00 Blood - Venous Blood Culture - Final Klebsiella pneumoniae 10/18/22 18:50 Blood - Venous Blood Culture - Final Klebsiella pneumoniae 10/19/22 12:49 Urine Other - Kidney Right Urine Culture - Final Klebsiella pneumoniae 10/18/22 Unknown Urine clean catch - Urine hess top Urine Culture - Final Klebsiella pneumoniae Quality Stroke Does the patient have a stroke diagnosis?: No VTE Prior VTE?: No VTE Risk Level:: Medical - moderate - high VTE Device Contraindication: N/A - Device Ordered VTE Drug Contraindication: N/A - Med Ordered
[2022-10-30] MEDS: Furosemide 40 MG TABLET PO (17:07)
[2022-10-30] MEDS: ondansetron HCL 4 MG/2 ML VIAL IVPUSH (17:17)
[2022-10-30 18:08] LABS: Hematocrit 21.3 % (37.0-47.0)
[2022-10-30 18:11] LABS: Anion Gap 12 (12-20); Blood Urea Nitrogen 10 mg/dL (9-16); Calcium 8.5 mg/dL (8.4-10.2); Carbon Dioxide 28 mmol/L (22-29); Chloride 107 mmol/L (96-108); Estimated Glomerular Filt Rate > 60; Glucose Random 93 mg/dL (60-115); INTERNATIONAL NORM RATIO 1.2 (0.9-1.1); Potassium 2.8 mmol/L (3.3-5.1); Prothrombin Time 14.3 SEC (10.0-13.1); Sodium 144 mmol/L (135-145)
[2022-10-30 18:16] LABS: Hemoglobin 6.8 g/dl (12.0-16.0)
[2022-10-30] MEDS: Potassium Chloride/H20 40 MEQ/100 ML PIGGYBACK 100 MEQ IV (18:36)
--- NOTE | 2022-10-30 19:00 | PC.NURSE ---
Pt AAO, calm and cooperative. K+ repleted with PO and Iv with no effect evidenced by repeat labs, has IV K+ infusing currently per order. Pt required couple hours back on Levophed as MAP in the 50s, currently paused as MAP stable in the high 60s. Pt's HGb lower at 6.9, made aware with no new orders at this time. Pt tolerating 3L N/C and satting in the mid 90s, desats with repositioning but recovers upon coaching pt to take deep breaths, fine crackles to the bases. SB to SR on the monitor. Pt had one loose stool, MD aware. Pt's ozuna in CDI, draining light tiffany urine. Pressure injury to nose bridge, AMILCAR, picture obtained and in chart. Redness to bony prominences, blanchable, cushioned on pillows and wedges, repositioned every 2 hrs and as needed and barrier cream applied. Pt had an episode of nausea, PRN Zofran given with good effect. Pt is otherwise currently resting in bed with no acute distress. Safety maintained throughout. Family member at bedside visiting, updated and all questions answered.
--- NOTE | 2022-10-30 19:41 | PC.NURSE ---
PATIENTS MOTHER CALLED AND UPDATED ON STATUS AND TRANSFER RN TO RN GIVEN AND PATIENT MOVED VIA STRETCHER TO [facility]
[2022-10-30] MEDS: Potassium Chloride/H20 10 MEQ/100 ML PIGGYBACK 50 MEQ IV ×2 (21:13→23:15)
[2022-10-30] MEDS: acetaZOLAMIDE 250 MG TABLET PO (21:42)
[2022-10-31] VITALS (7 sets, daily range): BP systolic 88–118; BP diastolic 54–66; PULSE 60–68; RESP 15–18; TEMP 36.2–37; O2SAT 89–97; BMI 20.1
[2022-10-31] MEDS: Potassium Chloride/H20 10 MEQ/100 ML PIGGYBACK 50 MEQ IV ×2 (01:21→03:36)
[2022-10-31] MEDS: oxyCODONE HCl Immed Release 5 MG TABLET PO (04:50)
[2022-10-31 06:52] LABS: Hematocrit 23.9 % (37.0-47.0); Hemoglobin 7.4 g/dl (12.0-16.0); Mean Corpuscular Hemoglobin 32.2 pg (27.0-33.0); Mean Corpuscular Volume 103.9 fL (80.0-98.0); NRBC Pct Auto 0.2 /100WBC (0.0-0.2); PLT CLUMP 1; Red Cell Distribution Width 22.2 % (11.0-16.0); White Blood Count 16.1 X10*3/uL (4.8-10.8)
[2022-10-31 07:40] LABS: Alanine Aminotransferase 9 U/L (0-31); Albumin Level 3.7 g/dL (3.5-5.0); Alkaline Phosphatase 104 U/L (39-117); Aspartate Amino Transferase 20 U/L (5-31); Bilirubin Total 2.1 mg/dL (0.0-1.0); Blood Urea Nitrogen 9 mg/dL (9-16); Calcium 8.5 mg/dL (8.4-10.2); Creatinine Clr Calc Pharmacy 73.2; Estimated Glomerular Filt Rate > 60; Glucose Random 77 mg/dL (60-115); Magnesium 2.5 mg/dL (1.6-2.6); Phosphorus 1.9 mg/dL (2.7-4.5); Total Protein 5.2 g/dL (6.5-8.0)
[2022-10-31 07:49] LABS: Anion Gap 12 (12-20); Carbon Dioxide 21 mmol/L (22-29); Chloride 111 mmol/L (96-108); Sodium 140 mmol/L (135-145)
[2022-10-31] MEDS: Midodrine HCl 10 MG TABLET PO ×3 (09:13→21:48)
[2022-10-31] MEDS: Fluconazole in NaCl,Iso-Osm 200 MG/100 ML PIGGYBACK 100 MG IV (09:13)
[2022-10-31] MEDS: Cyanocobalamin (Vitamin B-12) 500 MCG TABLET PO (09:13)
[2022-10-31] MEDS: clonazePAM 0.5 MG TABLET PO ×3 (09:13→21:47)
[2022-10-31] MEDS: lamoTRIgine 25 MG TABLET 150 MG PO ×2 (09:13→21:47)
[2022-10-31] MEDS: acetaZOLAMIDE 250 MG TABLET PO (09:13)
[2022-10-31] MEDS: Omeprazole 40 MG CAPSULE.DR PO (09:13)
[2022-10-31] MEDS: Thiamine HCL 100 MG TABLET PO (09:13)
[2022-10-31] MEDS: Furosemide 40 MG TABLET PO ×2 (09:13→17:32)
[2022-10-31] MEDS: FLUoxetine HCl 20 MG CAPSULE PO (09:13)
[2022-10-31] MEDS: Ascorbic Acid 250 MG TABLET PO (09:13)
[2022-10-31] MEDS: Sodium,Potassium Phosphates POWD.PACK 1 PACKET PO (09:19)
--- NOTE | 2022-10-31 11:57 | MHC.CLN ---
F/U PO INTAKE SIPS AND BITES DIET RX: PUREED-APPROPRIATE PT RECEVING ENSURE BID PROVIDES 700KCALS, 40G PROTEIN RECOMMEND INCREASING ENSURE TO TID PT IS CURRENTLY ACCEPTING WITH ENCOURAGEMENT SUPP WILL PROVIDE 1050KCALS, 60G PROTEIN GSR AWARE OF FOOD PREFERENCES NOTED DIARRHEA RESOLVED PER DR STEMP CONTINUE TO MONITOR PO INTAKE CLOSELY
--- NOTE | 2022-10-31 12:09 | MHC.SL.SWA ---
Speech Pathologist Impression: Oral phase dysphagia Risk of Aspiration Due to: Lethargy Medically Fragile Weak Cough Weak Voice Dysphasia Diet Status: No Change Recommend pt continue with pureed solids (NDD1), thin liquids, pills crushed in puree. Pt requires assistance during feeding and full supervision. Monitor for s/s of aspiration. Aspiration precautions apply. Recommend attempting small frequent meals throughout day to encourage increased po intake. Liquid Consistency and Strategies for Safe Swallow: Liquid Intake Recommendation: Thin Liquid Intake Strategies: Small Sips Solid Food Consistency: Dietary Recommendations: Pureed (NDD1) Additional Modifications to Solid Foods: Oral Medication Intake: Crushed with Puree Please contact the pharmacy regarding appropriate crushable or liquid drug formulations that are available whenever modified delivery is recommended. Compensatory Strategies and Precautions to be Taken for Safe Swallow: Sitting Upright (90 deg) Oral Check Supervision While Eating and Drinking for Safe Swallow: Total Assistance (1:1) Recommendation for Speech: Outpatient Speech Therapy Inpatient Speech Therapy Senior Escrow Officer Clinican/Clinical Fellow: Yes: Tom Juarez Supervisory Statement: I have reviewed and agree with the student/clinical fellow's documentation: Yes Speech Language Pathologist: Anastasia Harrell M.A., CCC-POLICY CHECKER
--- NOTE | 2022-10-31 17:25 | P.PNIM_ITS ---
Subjective Subjective Date of Service: 10/31/22 Interval History: stepped down from ICU yesterday diarrhea resolved no abd pain no dyspnea; on 3L O2 via NC Review of Systems Review of Systems: Yes all other systems are reviewed and are negative Physical Exam Vital Signs: Vital Signs: Last Vital Signs Temp 98.3 F 10/31/22 15:18 Pulse 60 10/31/22 15:18 Resp 16 10/31/22 15:18 BP 103/63 10/31/22 15:18 Pulse Ox 95 10/31/22 15:18 O2 Del Method 10/31/22 15:18 O2 Flow Rate 3 10/31/22 15:18 FiO2 45 10/29/22 04:00 BMI result Body Mass Index 20.1 Gen: in no acute distress but weak-appearing HEENT: sclera anicteric, moist mucus membranes Neck: supple, RIJ 3LC without signs of infection Lungs: diminished bilaterally Heart: regular rate and rhythm, no murmurs Abd: soft, non-tender, non-distended Ext: no edema Skin: warm/well-perfused Neuro: alert and oriented x3, no focal findings Psych: appropriate affect Objective Data Active Medications Ascorbic Acid (Ascorbic Acid 250 Mg Tablet) 250 mg PO DAILY [facility] Last Admin: 10/31/22 09:13 Dose: 250 mg Documented By: PRISCILA Clonazepam (Clonazepam 0.5 Mg Tablet) 0.5 mg PO TID [facility] Last Admin: 10/31/22 15:07 Dose: 0.5 mg Documented By: PRISCILA Cyanocobalamin (Cyanocobalamin (Vitamin B-12) 500 Mcg Tablet) 500 mcg PO DAILY [facility] Last Admin: 10/31/22 09:13 Dose: 500 mcg Documented By: PRISCILA Fluoxetine HCl (Fluoxetine Hcl 20 Mg Capsule) 20 mg PO DAILY [facility] Last Admin: 10/31/22 09:13 Dose: 20 mg Documented By: PRISCILA Furosemide (Furosemide 40 Mg Tablet) 40 mg PO BID@0900,1800 [facility]; Protocol Last Admin: 10/31/22 09:13 Dose: 40 mg Documented By: PRISCILA Hydromorphone HCl (Hydromorphone Hcl 0.5 Mg/0.5 Ml Syringe) 0.5 mg IVPUSH Q2H PRN; Protocol PRN Reason: Pain, Severe (Pain Scale 7-10) Fluconazole (Diflucan) 200 mg in 100 mls @ 100 mls/hr IV Q24H [facility] Last Infusion: 10/31/22 10:30 Dose: 0 mls/hr Documented By: PRISCILA Lamotrigine (Lamotrigine 25 Mg Tablet) 150 mg PO BID [facility] Last Admin: 10/31/22 09:13 Dose: 150 mg Documented By: PRISCILA Midodrine (Midodrine Hcl 10 Mg Tablet) 10 mg PO TID [facility] Last Admin: 10/31/22 15:07 Dose: 10 mg Documented By: PRISCILA Omeprazole (Omeprazole 40 Mg Capsule.Dr) 40 mg PO DAILY [facility] Last Admin: 10/31/22 09:13 Dose: 40 mg Documented By: PRISCILA Ondansetron HCl (Ondansetron Hcl 4 Mg/2 Ml Vial) 4 mg IVPUSH Q6H PRN PRN Reason: Nausea Last Admin: 10/30/22 17:17 Dose: 4 mg Documented By: KARL Thiamine HCl (Thiamine Hcl 100 Mg Tablet) 100 mg PO DAILY [facility] Last Admin: 10/31/22 09:13 Dose: 100 mg Documented By: PRISCILA Labs CBC & Chem 7: 10/31/22 06:11 10/31/22 06:11 Labs: Laboratory Results - last 24 hr 10/30/22 10/30/22 10/31/22 17:38 17:38 06:11 MCV 103.9 H MCH 32.2 MCHC 31.0 RDW 22.2 H Plt Count TNP MPV Not Reportable Absolute Nucleated RBC 0.040 H Nucleated RBC % (auto) 0.2 PT 14.3 H INR 1.2 H Anion Gap 12 Estim Creat Clear Calc 72.0 Estimated GFR > 60 Random Glucose 93 Calcium 8.5 Phosphorus Magnesium Total Bilirubin AST ALT Alkaline Phosphatase Total Protein Albumin 10/31/22 06:11 MCV MCH MCHC RDW Plt Count MPV Absolute Nucleated RBC Nucleated RBC % (auto) PT INR Anion Gap 12 Estim Creat Clear Calc 73.2 Estimated GFR > 60 Random Glucose 77 Calcium 8.5 Phosphorus 1.9 L Magnesium 2.5 Total Bilirubin 2.1 H AST 20 ALT 9 Alkaline Phosphatase 104 Total Protein 5.2 L Albumin 3.7 Assessment and Plan (1) Right heart failure: Status: Acute (2) Acute respiratory failure with hypoxia: Status: Acute Plan hospital d#[id number] 51yo F with anxiety, bipolar disorder, asthma, gastric bypass surgery, paroxysmal AF, chronic hypotension on midodrine, migraines, PTSD, and recurrent UTIs thought due to nephrolithiasis admitted to ICU 10/19/22 with septic shock with UTI/bacteremia from obstructing R ureteral stone with hydronephrosis started on norepi, underwent cystoscopy + R ureteral stent in OR 10/19 blood and urine cultures grew Klebsiella sensitive to levofloxacin ICU course complicated by precipitous thrombocytopenia due to sepsis, then hypoxic respiratory failure due to cor pulmonale and pneumonia was on HFNC + NRB, then CPAP aggressively diuresed with furosemide found to have funguria question of secretory diarrhea treated with cholestyramine + octreotide now off levofloxacin + norepi [place] [facility] [place] # obstructive uropathy due to R ureterolithiasis - s/p ureteral stent 10/19, needs Urology f/u # urosepsis with Klebsiella bacteremia - s/p levofloxacin course # acute hypoxic respiratory failure - due to pulmonary edema + PNA, improving and currently on 3L via NC to wean further as tolerated # severe R-sided HF - not PE. continue oral furosemide. Cardiology consultation. was treated with sildenafil in ICU. # candiduria - fluconazole # ELYSE - resolved, suspect was due to prerenal ELYSE/septic ATN # hyperbili - due to congestive hepatopathy, resolving # hypoK - repleted # hyperNa - resolved # hypoPO4 - replete, recheck level in AM # metabolic alkalosis - resolved # diarrhea - trial off cholestyarmine + octreotide # anemia - FOBT positive on admission- recheck and monitor H+H # bipolar disorder - continue clonazepam, fluoxetine, and lamotrigine # VTE ppx: SCDs # dispo: STR In my clinical judgment, the patient requires continued inpatient hospitalization for the following reasons: hypoxia, IV antifungal Time Spent With Patient Time: Total time managing care of this patient today ____ minutes. Quality Stroke Does the patient have a stroke diagnosis?: No VTE Prior VTE?: No VTE Risk Level:: Medical - moderate - high VTE Device Contraindication: N/A - Device Ordered VTE Drug Contraindication: N/A - Med Ordered
[2022-11-01] VITALS (13 sets, daily range): BP systolic 81–107; BP diastolic 44–71; PULSE 54–75; RESP 16–20; TEMP 36.1–37.7; O2SAT 91–100; BMI 18.6
[2022-11-01 02:03] LABS: OBS Int Ctl Valid YES; OBS1 POSITIVE (NEGATIVE)
[2022-11-01 02:52] LABS: CDiff Gene PCR NEGATIVE (Negative)
[2022-11-01 03:03] LABS: Leukocytes Stool Qualitative NEGATIVE (NEGATIVE)
[2022-11-01 06:38] LABS: Hematocrit 25.4 % (37.0-47.0); Hemoglobin 8.2 g/dl (12.0-16.0); Mean Corpuscular HGB Conc 32.3 g/dl (31.0-35.0); Mean Corpuscular Hemoglobin 32.9 pg (27.0-33.0); NRBC Pct Auto 0.1 /100WBC (0.0-0.2); Platelet Count 211 X10*3/uL (160-400); Red Blood Count 2.49 X10*6/uL (4.20-5.50); Red Cell Distribution Width 22.5 % (11.0-16.0); White Blood Count 20.9 X10*3/uL (4.8-10.8)
[2022-11-01 07:02] LABS: Anion Gap 12 (12-20); Blood Urea Nitrogen 11 mg/dL (9-16); Calcium 8.5 mg/dL (8.4-10.2); Carbon Dioxide 23 mmol/L (22-29); Chloride 109 mmol/L (96-108); Creatinine Clr Calc Pharmacy 74.2; Estimated Glomerular Filt Rate > 60; Glucose Random 63 mg/dL (60-115); Magnesium 2.2 mg/dL (1.6-2.6); Phosphorus 2.1 mg/dL (2.7-4.5); Potassium 3.3 mmol/L (3.3-5.1); Sodium 141 mmol/L (135-145)
[2022-11-01 08:42] LABS: Immature Retic Fraction 20.9 % (3.0-15.9); Retic HGB Equivalent 36.6 pg (30.0-35.0); Reticulocytes Absolute 0.308 X10*6/uL (0.026-0.095)
[2022-11-01 08:46] LABS: Lactate Dehydrogenase 314 U/L (122-220)
[2022-11-01] MEDS: Potassium Phosphate/NS 15 MMOL/250 ML PLAST..BAG 62.5 MMOL IV (09:06)
[2022-11-01] MEDS: Thiamine HCL 100 MG TABLET PO (09:07)
[2022-11-01] MEDS: Cyanocobalamin (Vitamin B-12) 500 MCG TABLET PO (09:07)
[2022-11-01] MEDS: Ascorbic Acid 250 MG TABLET PO (09:07)
[2022-11-01] MEDS: Midodrine HCl 10 MG TABLET PO ×3 (09:07→19:39)
[2022-11-01] MEDS: lamoTRIgine 25 MG TABLET 150 MG PO ×2 (09:07→19:39)
[2022-11-01] MEDS: clonazePAM 0.5 MG TABLET PO ×3 (09:07→19:39)
[2022-11-01] MEDS: Fluconazole 100 MG TABLET PO (09:09)
[2022-11-01 09:45] LABS: RET ABN SCTR 1
[2022-11-01 09:46] LABS: Reticulocyte Percent 12.2 % (0.5-1.8)
[2022-11-01 09:56] LABS: Folate 10.4 ng/mL (> or = 4.0); Vitamin B12 > 2000 pg/mL (200-900)
--- NOTE | 2022-11-01 10:12 | P.CONCA_ITS ---
History of Present Illness History of Present Illness Date of Service: 11/01/22 Requesting physician: Esther Ortiz Consult reason: other (Question right heart failure.) Chief complaint: urosepsis Narrative: I was consulted to see Sandrita in cardiology consultation today for evaluation for right heart failure. Patient with very complicated past medical history and recently multiple hospitalization related to injury. She has prior history of paroxysmal atrial fibrillation as well as low blood pressure on midodrine for maintaining his blood pressure. Admitted to the intensive care unit for prolonged time and was felt that she was in flor[place] right heart failure. She was admitted with bacteremia/sepsis related to UTI underwent urinary stenting for the same at prolonged hospitalization requiring mechanical ventilation with ARDS type of syndrome. Echocardiogram read shows RV enlargement along with mild pulmonary hypertension. Pulmonary embolism ruled out. She was extensively diuresed. She was on vasopressors in the ICU which was then transition to p.o. midodrine. She remains significantly anemic. She complains of weakness and feeling tired. Denies any significant shortness of breath or palpitations. She is currently not on oral anticoagulation therapy appropriately. She has fecal occult blood test positive. Review of Systems Constitutional: Constitutional: Reports lethargy and Reports weakness Eyes: Eyes: Reports no additional eye complaints Cardiovascular: Cardiovascular: Denies chest pain, Denies leg edema, Denies lightheadedness, Denies Loss of Consciousness, Denies palpitations and Reports dyspnea Respiratory: Respiratory: Reports dyspnea Gastrointestinal: Gastrointestinal: Reports no additional gastrointestinal complaints Genitourinary: Genitourinary: Reports no additional female genitourinary complaints Musculoskeletal: Musculoskeletal: Reports no additional musculoskeletal complaints Neurologic: Reports system reviewed and no additional complaints, except as documented and Reports weakness Endocrine: Endocrine: Denies palpitations PMFSH Past Medical History Medical History Afib Anxiety Arthritis Asthma Bipolar 1 disorder Bronchitis Complications of gastric bypass surgery Hypokalemia Hypotension Leukocytosis Migraines PTSD (post-traumatic stress disorder) Functional capacity: wheelchair bound (baseline) Family History Family history: reviewed and not pertinent Surgical History Surgical History H/O: History of cholecystectomy Social History Social History Household Members: None Housing: Apartment Do you presently have visiting nurse or other home services: Yes Alcohol intake: never Patient Tobacco Use Status: Former Tobacco user Quit Date: 2018 Tobacco use type: Cigarette Smoked in Last 30 Days: No Use of substances other than those prescribed or required for medical reasons: No Currently Displaying Signs/Symptoms of Drug Intoxication Withdrawal: No Have you been hit, kicked, punched, or otherwise hurt by someone within the past year? If so, by whom?: No Do you feel safe in your current relationship?: No Current Relationship Is there a partner from a previous relationship who is making you feel unsafe now?: No Are you made to feel afraid or neglected: No Advance Directives: No Advance Directives Information Provided: No Do you have thoughts of harming others: None Do you have a plan to hurt others: No Plan Recently lost weight without trying: Yes How much weight loss: Unsure Eating poorly because of decreased appetite: No Nutrition screen score: 4 Patient : No : No Poor oral hygiene: No Current occupational status: disabled Travel History Ebola Risk: Travel/Contact With Anyone From Affected Area/s: No Has Patient Experienced Ebola Symptoms: No Meds Allergies Allergy/AdvReac Type Severity Reaction Status Date / Time cephalexin Allergy Swelling Verified 02/07/21 18:19 ciprofloxacin [From Cipro] Allergy Swelling Verified 02/07/21 18:19 coconut oil Allergy Swelling Verified 10/19/22 01:50 duloxetine [From Cymbalta] Allergy Swelling Verified 02/07/21 18:19 Penicillins Allergy Swelling Verified 02/07/21 18:19 Active Medications: Current Medications Ascorbic Acid (Ascorbic Acid 250 Mg Tablet) 250 mg PO DAILY [facility] Last Admin: 11/01/22 09:07 Dose: 250 mg Clonazepam (Clonazepam 0.5 Mg Tablet) 0.5 mg PO TID [facility] Last Admin: 11/01/22 09:07 Dose: 0.5 mg Cyanocobalamin (Cyanocobalamin (Vitamin B-12) 500 Mcg Tablet) 500 mcg PO DAILY [facility] Last Admin: 11/01/22 09:07 Dose: 500 mcg Fluconazole (Fluconazole 100 Mg Tablet) 100 mg PO DAILY [facility] Last Admin: 11/01/22 09:09 Dose: 100 mg Fluoxetine HCl (Fluoxetine Hcl 20 Mg Capsule) 20 mg PO DAILY [facility] Last Admin: 11/01/22 09:38 Dose: Not Given Furosemide (Furosemide 40 Mg Tablet) 40 mg PO BID@0900,1800 [facility]; Protocol Last Admin: 10/31/22 17:32 Dose: 40 mg Hydromorphone HCl (Hydromorphone Hcl 0.5 Mg/0.5 Ml Syringe) 0.5 mg IVPUSH Q2H P RN; Protocol PRN Reason: Pain, Severe (Pain Scale 7-10) Potassium Phosphate (Kphos) 15 mmol in 250 mls @ 62.5 mls/hr IV ONCE ONE Stop: 11/01/22 12:27 Last Admin: 11/01/22 09:06 Dose: 62.5 mls/hr Lamotrigine (Lamotrigine 25 Mg Tablet) 150 mg PO BID [facility] Last Admin: 11/01/22 09:07 Dose: 150 mg Midodrine (Midodrine Hcl 10 Mg Tablet) 10 mg PO TID [facility] Last Admin: 11/01/22 09:07 Dose: 10 mg Omeprazole (Omeprazole 40 Mg Capsule.Dr) 40 mg PO DAILY [facility] Last Admin: 11/01/22 09:39 Dose: Not Given Ondansetron HCl (Ondansetron Hcl 4 Mg/2 Ml Vial) 4 mg IVPUSH Q6H PRN PRN Reason: Nausea Last Admin: 10/30/22 17:17 Dose: 4 mg Thiamine HCl (Thiamine Hcl 100 Mg Tablet) 100 mg PO DAILY [facility] Last Admin: 11/01/22 09:07 Dose: 100 mg Home Medications Medication Instructions Recorded Confirmed Last Taken Type acetaminophen 325 mg tablet 650 mg PO Q6H PRN Pain 10/19/22 10/19/22 Unknown History albuterol sulfate 90 mcg/actuation 2 puff inhalation Q6H PRN Wheezing 10/19/22 10/19/22 Unknown History aerosol inhaler ascorbic acid (vitamin C) 250 mg 250 mg PO DAILY 10/19/22 10/19/22 Unknown History tablet bacillus coagulans-inulin 1 1 cap PO DAILY 10/19/22 10/19/22 Unknown History billion cell-250 mg capsule (Probiotic Formula (inulin)) calcium carbonate 500 mg calcium 1,000 mg PO BID 10/19/22 10/19/22 Unknown History (1,250 mg) chewable tablet cholecalciferol (vitamin D3) 1,250 1,250 mcg PO WE 10/19/22 10/19/22 Unknown History mcg (50,000 unit) tablet clonazepam 1 mg tablet 1 mg PO TID 10/19/22 10/19/22 Unknown History cyanocobalamin (vitamin B-12) 500 500 mcg PO DAILY 10/19/22 10/19/22 Unknown History mcg tablet fluoxetine 20 mg tablet 20 mg PO DAILY 10/19/22 10/19/22 Unknown History fluticasone 500 mcg-salmeterol 50 1 inh inhalation BID 10/19/22 10/19/22 Unknown History mcg/dose blistr powdr for inhalation (Wixela Inhub) fluticasone propionate 50 1 spray intranasal DAILY 10/19/22 10/19/22 Unknown History mcg/actuation nasal spray,suspension lamotrigine 150 mg tablet 150 mg PO BID 10/19/22 10/19/22 Unknown History midodrine 5 mg tablet 5 mg PO TID 10/19/22 10/19/22 Unknown History olanzapine 2.5 mg tablet (Zyprexa) 2.5 mg PO BEDTIME PRN Anxiety 10/19/22 10/19/22 Unknown History omeprazole 40 mg capsule,delayed 40 mg PO DAILY 10/19/22 10/19/22 Unknown History release ondansetron HCl 4 mg tablet 4 mg PO Q8H PRN Nausea 10/19/22 10/19/22 Unknown History risperidone 1 mg tablet (Risperdal) 1 mg PO DAILY 10/19/22 10/19/22 Unknown History risperidone 2 mg tablet 2 mg PO BEDTIME 10/19/22 10/19/22 Unknown History rivaroxaban 20 mg tablet (Xarelto) 20 mg PO DAILY@1700 10/19/22 10/19/22 Unknown History sucralfate 100 mg/mL oral 10 ml PO QID 10/19/22 10/19/22 Unknown History suspension thiamine HCl (vitamin B1) 100 mg 100 mg PO DAILY 10/19/22 10/19/22 Unknown History tablet topiramate 25 mg tablet 25 mg PO DAILY 10/19/22 10/19/22 Unknown History topiramate 25 mg tablet 75 mg PO BEDTIME 10/19/22 10/19/22 Unknown History Physical Exam Vital Signs: Vital Signs: Last Vital Signs Temp 97.0 F 11/01/22 07:50 Pulse 64 11/01/22 07:50 Resp 16 11/01/22 07:50 BP 82/44 L 11/01/22 09:22 Pulse Ox 94 11/01/22 07:50 O2 Del Method 11/01/22 07:50 O2 Flow Rate 3 11/01/22 07:50 FiO2 45 10/29/22 04:00 BMI result Body Mass Index 18.6 Const: General: cooperative, comfortable, alert, awake and ill appearing Nutritional Appearance: malnourished Orientation/consciousness: patient oriented x3 HEENT: Head: Yes normocephalic and Yes atraumatic Neck: Neck: Yes trachea midline, Yes supple and Yes no JVD Resp: Effort & Inspection: decreased respiratory effort Auscultation: wheezes and diminished lung sounds bilateral Cardio: Jugular venous distension: no JVD Palpation: normal PMI Rate: regular rate Rhythm: regular rhythm Heart sounds: S1 normal heart sound present, S2 normal heart sound present, no click, no gallops and no murmurs GI: Auscultation: normal bowel sounds Skin: General skin exam: no rashes or lesions noted and ecchymosis Neuro: General: patient oriented x3 and no focal motor deficits Extrem: General: Yes no clubbing, cyanosis or edema Objective Labs and Meds Result diagrams: 11/01/22 05:54 11/01/22 05:54 Lab results: Laboratory Results - last 24 hr 10/31/22 10/31/22 10/31/22 23:45 23:45 23:45 WBC RBC Hgb Hct MCV MCH MCHC RDW Plt Count MPV Absolute Nucleated RBC Nucleated RBC % (auto) Absolute Retic Percent Retic Immature Retic Fraction Retic Hgb Equivalent Sodium Potassium Chloride Carbon Dioxide Anion Gap BUN Creatinine Estim Creat Clear Calc Estimated GFR Random Glucose Calcium Phosphorus Magnesium Lactate Dehydrogenase Vitamin B12 Folate Stool Occult Blood POSITIVE Stool Leukocytes, Qual NEGATIVE C. difficile Tox B Gene NEGATIVE 11/01/22 11/01/22 11/01/22 05:54 05:54 05:54 WBC 20.9 H RBC 2.49 L Hgb 8.2 L Hct 25.4 L MCV 102.0 H MCH 32.9 MCHC 32.3 RDW 22.5 H Plt Count 211 D MPV 11.0 Absolute Nucleated RBC 0.020 H Nucleated RBC % (auto) 0.1 Absolute Retic 0.308 H Percent Retic 12.2 H Immature Retic Fraction 20.9 H Retic Hgb Equivalent 36.6 H Sodium 141 Potassium 3.3 Chloride 109 H Carbon Dioxide 23 Anion Gap 12 BUN 11 Creatinine 0.59 Estim Creat Clear Calc 74.2 Estimated GFR > 60 Random Glucose 63 Calcium 8.5 Phosphorus 2.1 L Magnesium 2.2 Lactate Dehydrogenase 314 H Vitamin B12 > 2000 H Folate 10.4 Stool Occult Blood Stool Leukocytes, Qual C. difficile Tox B Gene Assessment and Plan (1) Enlarged RV (right ventricle): Status: Acute Patient has no signs or symptoms of right heart failure at this point time. Noted echocardiogram RV enlargement most likely from acute respiratory failure hypoxic respiratory failure with acute cor pulmonale. There was no evidence of pulmonary embolism. At this point time there is no indication for oral diuretics. This will only worsen her hypotension by making a volume depleted. I actually with independent video producer some packed RBC to improve intravascular volume that may help with her blood pressure. See below. Can repeat echocardiogram to see if the RV size and pulmonary hypertension have improved. Would avoid using diuretics unless she develops clear right heart failure symptoms. 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 Her chads Vasc score is 0 as she has no clear other risk factors to me. She is currently very anemic. Transfuse as above. She also has fecal occult blood positive. May be related to gastritis. GI consultation. Hold on Xarelto till her hematocrit remained stable and improves. (3) Hypotension: Status: Acute Patient history of chronic hypertension at home is on midodrine therapy. Unclear etiology. Needs volume replacement at this point time, start with packed RBC. Can give more fluids intravenous sleeps needed. Continue midodrine therapy. Can give volume portable pinch riveter such as Florinef if blood pressure continues to remain low. Will sign of the case at this point time. Thank you for allowing me to partake in her care Time Spent With Patient Time: Total time managing care of this patient today ____ minutes. Procedures Date of Service Date of Service: 11/01/22
[2022-11-01 11:34] LABS: Adenovirus F 40/41 Not Detected (Not Detect.); Astrovirus Not Detected (Not Detect.); Campylobacter Not Detected (Not Detect.); Cryptosporidium Not Detected (Not Detect.); Cyclospora cayetanensis Not Detected (Not Detect.); E. coli EAEC Not Detected (Not Detect.); E. coli EPEC Not Detected (Not Detect.); E. coli ETEC Not Detected (Not Detect.); E. coli STEC Not Detected (Not Detect.); Entamoeba histolytica Not Detected (Not Detect.); Giardia lamblia Not Detected (Not Detect.); Norovirus GI/GII Not Detected (Not Detect.); Plesiomonas shigelloides Not Detected (Not Detect.); Rotavirus A Not Detected (Not Detect.); Salmonella Not Detected (Not Detect.); Sapovirus Not Detected (Not Detect.); Shigella sp./EIEC Not Detected (Not Detect.); Vibrio Not Detected (Not Detect.); Vibrio Cholerae Not Detected (Not Detect.); Yersinia enterocolitica Not Detected (Not Detect.)
--- NOTE | 2022-11-01 13:14 | HO.PM.IMPN ---
Subjective Subjective Date of Service: 11/01/22 Interval History: tired, weak BP low no dyspnea, leg swelling, or chest pain Review of Systems Review of Systems: Yes all other systems are reviewed and are negative Physical Exam Vital Signs: Vital Signs: Last Vital Signs Temp 97.5 F 11/01/22 12:00 Pulse 61 11/01/22 12:00 Resp 18 11/01/22 12:00 BP 98/71 11/01/22 12:00 Pulse Ox 100 11/01/22 12:00 O2 Del Method 11/01/22 12:00 O2 Flow Rate 5 11/01/22 12:00 FiO2 45 10/29/22 04:00 BMI result Body Mass Index 18.6 Gen: in no acute distress but weak-appearing HEENT: sclera anicteric, moist mucus membranes, pallor Neck: supple Lungs: diminished bilaterally Heart: regular rate and rhythm, no murmurs Abd: soft, non-tender, non-distended Ext: no edema Skin: warm/well-perfused but pale Neuro: alert and oriented x3, no focal findings Psych: appropriate affect Objective Data Active Medications Ascorbic Acid (Ascorbic Acid 250 Mg Tablet) 250 mg PO DAILY [facility] Last Admin: 11/01/22 09:07 Dose: 250 mg Documented By: CAT Clonazepam (Clonazepam 0.5 Mg Tablet) 0.5 mg PO TID [facility] Last Admin: 11/01/22 09:07 Dose: 0.5 mg Documented By: CAT Cyanocobalamin (Cyanocobalamin (Vitamin B-12) 500 Mcg Tablet) 500 mcg PO DAILY [facility] Last Admin: 11/01/22 09:07 Dose: 500 mcg Documented By: CAT Fluconazole (Fluconazole 100 Mg Tablet) 100 mg PO DAILY [facility] Last Admin: 11/01/22 09:09 Dose: 100 mg Documented By: CAT Fluoxetine HCl (Fluoxetine Hcl 20 Mg Capsule) 20 mg PO DAILY [facility] Last Admin: 11/01/22 09:38 Dose: Not Given Documented By: CAT Non-Admin Reason: refused Hydromorphone HCl (Hydromorphone Hcl 0.5 Mg/0.5 Ml Syringe) 0.5 mg IVPUSH Q2H PRN; Protocol PRN Reason: Pain, Severe (Pain Scale 7-10) Lamotrigine (Lamotrigine 25 Mg Tablet) 150 mg PO BID [facility] Last Admin: 11/01/22 09:07 Dose: 150 mg Documented By: CAT Midodrine (Midodrine Hcl 10 Mg Tablet) 10 mg PO TID [facility] Last Admin: 11/01/22 09:07 Dose: 10 mg Documented By: CAT Omeprazole (Omeprazole 40 Mg Capsule.Dr) 40 mg PO DAILY [facility] Last Admin: 11/01/22 09:39 Dose: Not Given Documented By: CAT Non-Admin Reason: pt refused Ondansetron HCl (Ondansetron Hcl 4 Mg/2 Ml Vial) 4 mg IVPUSH Q6H PRN PRN Reason: Nausea Last Admin: 10/30/22 17:17 Dose: 4 mg Documented By: KARL Thiamine HCl (Thiamine Hcl 100 Mg Tablet) 100 mg PO DAILY [facility] Last Admin: 11/01/22 09:07 Dose: 100 mg Documented By: CAT Labs CBC & Chem 7: 11/01/22 05:54 11/01/22 05:54 Labs: Laboratory Results - last 24 hr 10/31/22 10/31/22 10/31/22 23:45 23:45 23:45 MCV MCH MCHC RDW Plt Count MPV Absolute Nucleated RBC Nucleated RBC % (auto) Absolute Retic Percent Retic Immature Retic Fraction Retic Hgb Equivalent Anion Gap Estim Creat Clear Calc Estimated GFR Random Glucose Calcium Phosphorus Magnesium Lactate Dehydrogenase Vitamin B12 Folate Stool Occult Blood POSITIVE Stool Leukocytes, Qual Stl C. cayetanensis PCR Not Detected Stool Rotavirus A PCR Not Detected Stl Adenov F 40/41 PCR Not Detected Stool Astrovirus (PCR) Not Detected Stool Campylobacter PCR Not Detected Stool Cryptosporidium PCR Not Detected Stl Sh Tox Pr E STEC PCR Not Detected Stool E coli O157 PCR Not applicable Stl Enterotoxigenic E PCR Not Detected Stool EPEC (PCR) Not Detected Stool EAEC (PCR) Not Detected Stl E. histolytica PCR Not Detected Stool Giardia Lamblia PCR Not Detected Stl P. shigelloides PCR Not Detected Stool Salmonella PCR Not Detected Stool Sapovirus (PCR) Not Detected Stl Shigella/EIEC PCR Not Detected St Y.enterocolitica PCR Not Detected Stool Vibrio (PCR) Not Detected Stl Vibrio cholerae PCR Not Detected Stl Norovirus GI/GII PCR Not Detected C. difficile Tox B Gene NEGATIVE Blood Type Antibody Screen Crossmatch 10/31/22 11/01/22 11/01/22 23:45 05:54 05:54 MCV 102.0 H MCH 32.9 MCHC 32.3 RDW 22.5 H Plt Count 211 D MPV 11.0 Absolute Nucleated RBC 0.020 H Nucleated RBC % (auto) 0.1 Absolute Retic 0.308 H Percent Retic 12.2 H Immature Retic Fraction 20.9 H Retic Hgb Equivalent 36.6 H Anion Gap 12 Estim Creat Clear Calc 74.2 Estimated GFR > 60 Random Glucose 63 Calcium 8.5 Phosphorus 2.1 L Magnesium 2.2 Lactate Dehydrogenase 314 H Vitamin B12 Folate Stool Occult Blood Stool Leukocytes, Qual NEGATIVE Stl C. cayetanensis PCR Stool Rotavirus A PCR Stl Adenov F 40/ PCR Stool Astrovirus (PCR) Stool Campylobacter PCR Stool Cryptosporidium PCR Stl Sh Tox Pr E STEC PCR Stool E coli O157 PCR Stl Enterotoxigenic E PCR Stool EPEC (PCR) Stool EAEC (PCR) Stl E. histolytica PCR Stool Giardia Lamblia PCR Stl P. shigelloides PCR Stool Salmonella PCR Stool Sapovirus (PCR) Stl Shigella/EIEC PCR St Y.enterocolitica PCR Stool Vibrio (PCR) Stl Vibrio cholerae PCR Stl Norovirus GI/GII PCR C. difficile Tox B Gene Blood Type Antibody Screen Crossmatch 11/01/22 11/01/22 05:54 10:47 MCV MCH MCHC RDW Plt Count MPV Absolute Nucleated RBC Nucleated RBC % (auto) Absolute Retic Percent Retic Immature Retic Fraction Retic Hgb Equivalent Anion Gap Estim Creat Clear Calc Estimated GFR Random Glucose Calcium Phosphorus Magnesium Lactate Dehydrogenase Vitamin B12 > 2000 H Folate 10.4 Stool Occult Blood Stool Leukocytes, Qual Stl C. cayetanensis PCR Stool Rotavirus A PCR Stl Adenov F 40/41 PCR Stool Astrovirus (PCR) Stool Campylobacter PCR Stool Cryptosporidium PCR Stl Sh Tox Pr E STEC PCR Stool E coli O157 PCR Stl Enterotoxigenic E PCR Stool EPEC (PCR) Stool EAEC (PCR) Stl E. histolytica PCR Stool Giardia Lamblia PCR Stl P. shigelloides PCR Stool Salmonella PCR Stool Sapovirus (PCR) Stl Shigella/EIEC PCR St Y.enterocolitica PCR Stool Vibrio (PCR) Stl Vibrio cholerae PCR Stl Norovirus GI/GII PCR C. difficile Tox B Gene Blood Type O Positive Antibody Screen NEGATIVE Crossmatch See Detail Assessment and Plan (1) Right heart failure: Status: Acute (2) Acute respiratory failure with hypoxia: Status: Acute Plan hospital d#14 51yo F with anxiety, bipolar disorder, asthma, gastric bypass surgery, paroxysmal AF, chronic hypotension on midodrine, migraines, PTSD, and recurrent UTIs thought due to nephrolithiasis admitted to ICU 10/19/22 with septic shock with UTI/bacteremia from obstructing R ureteral stone with hydronephrosis started on norepi, underwent cystoscopy + R ureteral stent in [place] 10/19 blood and urine cultures grew Klebsiella sensitive to levofloxacin ICU course complicated by precipitous thrombocytopenia due to sepsis, then hypoxic respiratory failure due to cor pulmonale and pneumonia was on HFNC + NRB, then CPAP aggressively diuresed with furosemide found to have funguria question of secretory diarrhea treated with cholestyramine + octreotide now off levofloxacin + norepi stepped down to [facility] 10/30/22 # macrocytic anemia # GI bleed - transfuse 2u pRBCs. B12 + FA normal. FOBT x2- will consult GI. monitor H+H. # severe R-sided HF - not PE; likely acute cor pulmonale due to ARDS from urosepsis. Dry now- d/c diuretics. Cardiology consulted. Limited TTE 11/03/22 to re-assess RV systolic function. # chronic hypotension - continue midodrine # obstructive uropathy due to R ureterolithiasis - s/p ureteral stent 10/19, needs Urology f/u # urosepsis with Klebsiella bacteremia - s/p levofloxacin course # acute hypoxic respiratory failure - due to pulmonary edema/ARDS; improving and currently on 3L via NC to wean further as tolerated # hx paroxysmal atrial fibrillation - was on rivaroxaban as outpt but [id number] is 0 and as such does not need it # candiduria - fluconazole changed IV to PO, d#01/30 # ELYSE - resolved, suspect was due to prerenal ELYSE/septic ATN # hyperbili - due to congestive hepatopathy, resolving # hypoK - repleted # hyperNa - resolved # hypoPO4 - replete with KPhos, recheck level in AM # metabolic alkalosis - resolved # diarrhea - trial off cholestyarmine + octreotide, stool studies negative; diarrhea resolved # bipolar disorder - continue clonazepam, fluoxetine, and lamotrigine # VTE ppx: SCDs # dispo: STR In my clinical judgment, the patient requires continued inpatient hospitalization for the following reasons: hypoxia, IV antifungal Time Spent With Patient Time: Total time managing care of this patient today ____ minutes. Quality Stroke Does the patient have a stroke diagnosis?: No VTE Prior VTE?: No VTE Risk Level:: Medical - moderate - high VTE Device Contraindication: N/A - Device Ordered VTE Drug Contraindication: N/A - Med Ordered
--- NOTE | 2022-11-01 13:50 | PM.UROPN ---
Subjective Subjective Date of Service: 11/01/22 Interval history: Slow improvement Recommend ureteroscopy with laser lithotripsy and removal of stent on Thursday This was discussed with Sandrita Physical Exam Vital Signs: Vital Signs: Last Vital Signs Temp 97.5 F 11/01/22 12:00 Pulse 61 11/01/22 12:00 Resp 18 11/01/22 12:00 BP 98/71 11/01/22 12:00 Pulse Ox 100 11/01/22 12:00 O2 Del Method 11/01/22 12:00 O2 Flow Rate 5 11/01/22 12:00 FiO2 45 10/29/22 04:00 BMI result Body Mass Index 18.6 Const: General: cooperative, healthy appearing, comfortable and no acute distress Orientation/consciousness: patient oriented x3 HEENT: Face and sinus: Yes normal facial exam Mouth: moist mucous membranes Neck: Neck: Yes normal visual inspection, Yes full ROM and Yes trachea midline Chest: Chest palpation & inspection: normal inspection of the chest Resp: Effort & Inspection: normal respiratory effort, able to speak in complete sentences and no respiratory distress GI: Inspection: Yes normal to inspection Back/Spine/Pelvis: Cervical Spine: normal cervical lordosis Thoracic/Lumbar Spine: thoracic and lumbar spine normal to inspection Skin: General skin exam: no rashes or lesions noted Neuro: General: patient oriented x3, tone normal and moves all extremities Extrem: General: Yes normal to inspection and Yes capillary refill normal Urology Results Labs CBC & Chem 7: 11/01/22 05:54 11/01/22 05:54 Labs: Laboratory Results - last 24 hr 10/31/22 10/31/22 10/31/22 23:45 23:45 23:45 WBC RBC Hgb Hct MCV MCH MCHC RDW Plt Count MPV Absolute Nucleated RBC Nucleated RBC % (auto) Absolute Retic Percent Retic Immature Retic Fraction Retic Hgb Equivalent Sodium Potassium Chloride Carbon Dioxide Anion Gap BUN Creatinine Estim Creat Clear Calc Estimated GFR Random Glucose Calcium Phosphorus Magnesium Lactate Dehydrogenase Vitamin B12 Folate Stool Occult Blood POSITIVE Stool Leukocytes, Qual Stl C. cayetanensis PCR Not Detected Stool Rotavirus A PCR Not Detected Stl Adenov F 40/41 PCR Not Detected Stool Astrovirus (PCR) Not Detected Stool Campylobacter PCR Not Detected Stool Cryptosporidium PCR Not Detected Stl Sh Tox Pr E STEC PCR Not Detected Stool E coli O157 PCR Not applicable Stl Enterotoxigenic E PCR Not Detected Stool EPEC (PCR) Not Detected Stool EAEC (PCR) Not Detected Stl E. histolytica PCR Not Detected Stool Giardia Lamblia PCR Not Detected Stl P. shigelloides PCR Not Detected Stool Salmonella PCR Not Detected Stool Sapovirus (PCR) Not Detected Stl Shigella/EIEC PCR Not Detected St Y.enterocolitica PCR Not Detected Stool Vibrio (PCR) Not Detected Stl Vibrio cholerae PCR Not Detected Stl Norovirus GI/GII PCR Not Detected C. difficile Tox B Gene NEGATIVE Blood Type Antibody Screen Crossmatch 10/31/22 11/01/22 11/01/22 23:45 05:54 05:54 WBC 20.9 H RBC 2.49 L Hgb 8.2 L Hct 25.4 L MCV 102.0 H MCH 32.9 MCHC 32.3 RDW 22.5 H Plt Count 211 D MPV 11.0 Absolute Nucleated RBC 0.020 H Nucleated RBC % (auto) 0.1 Absolute Retic 0.308 H Percent Retic 12.2 H Immature Retic Fraction 20.9 H Retic Hgb Equivalent 36.6 H Sodium 141 Potassium 3.3 Chloride 109 H Carbon Dioxide 23 Anion Gap 12 BUN 11 Creatinine 0.59 Estim Creat Clear Calc 74.2 Estimated GFR > 60 Random Glucose 63 Calcium 8.5 Phosphorus 2.1 L Magnesium 2.2 Lactate Dehydrogenase 314 H Vitamin B12 Folate Stool Occult Blood Stool Leukocytes, Qual NEGATIVE Stl C. cayetanensis PCR Stool Rotavirus A PCR Stl Adenov F 40/41 PCR Stool Astrovirus (PCR) Stool Campylobacter PCR Stool Cryptosporidium PCR Stl Sh Tox Pr E STEC PCR Stool E coli O157 PCR Stl Enterotoxigenic E PCR Stool EPEC (PCR) Stool EAEC (PCR) Stl E. histolytica PCR Stool Giardia Lamblia PCR Stl P. shigelloides PCR Stool Salmonella PCR Stool Sapovirus (PCR) Stl Shigella/EIEC PCR St Y.enterocolitica PCR Stool Vibrio (PCR) Stl Vibrio cholerae PCR Stl Norovirus GI/GII PCR C. difficile Tox B Gene Blood Type Antibody Screen Crossmatch 11/01/22 11/01/22 05:54 10:47 WBC RBC Hgb Hct MCV MCH MCHC RDW Plt Count MPV Absolute Nucleated RBC Nucleated RBC % (auto) Absolute Retic Percent Retic Immature Retic Fraction Retic Hgb Equivalent Sodium Potassium Chloride Carbon Dioxide Anion Gap BUN Creatinine Estim Creat Clear Calc Estimated GFR Random Glucose Calcium Phosphorus Magnesium Lactate Dehydrogenase Vitamin B12 > 2000 H Folate 10.4 Stool Occult Blood Stool Leukocytes, Qual Stl C. cayetanensis PCR Stool Rotavirus A PCR Stl Adenov F 40/41 PCR Stool Astrovirus (PCR) Stool Campylobacter PCR Stool Cryptosporidium PCR Stl Sh Tox Pr E STEC PCR Stool E coli O157 PCR Stl Enterotoxigenic E PCR Stool EPEC (PCR) Stool EAEC (PCR) Stl E. histolytica PCR Stool Giardia Lamblia PCR Stl P. shigelloides PCR Stool Salmonella PCR Stool Sapovirus (PCR) Stl Shigella/EIEC PCR St Y.enterocolitica PCR Stool Vibrio (PCR) Stl Vibrio cholerae PCR Stl Norovirus GI/GII PCR C. difficile Tox B Gene Blood Type O Positive Antibody Screen NEGATIVE Crossmatch See Detail Progress Note: A&P Assessment and plan (1) Hydronephrosis with renal and ureteral calculus obstruction: Status: Acute Plan Intervention Thursday Time Spent With Patient Time: Total time managing care of this patient today ____ minutes. Progress Note: Quality Stroke Does the patient have a stroke diagnosis?: No
--- NOTE | 2022-11-01 17:03 | P.EN_ITS ---
Event Note Date of Service: 11/01/22 Event Note: GI Consult-History from patient, her RN, and the EMR. Imp: 51 yo chronically ill female noted to be anemic with Heme + stool requiring blood transfusions. She has been here in the hospital for about 2 weeks recuperating from a bout of urosepsis in relation to right-sided kidney stones that developed while she was at a rehab facility recuperating from right hip surgery after a fall at home. She has not had any obvious GI bleeding and had a brown stool today as per her RN. She doesn't think she has had an upper endoscopy or colonoscopy in the past. She is s/p a gastric bypass several years ago with Dr. Nguyễn at [facility]. She received 2 u PRBC's on admission 2 weeks ago and is receiving 2 more units today. She denies any localizing GI symptoms and would like to eat regular food . Her B12 and Folate are normal but I don't see any Iron studies. Diff dx: I suspect the anemia and Heme + stool are in relation to her recent severe illnesses and her underlying chronic illnesses. Her gastric bypass would predispose her to anemia as well from Iron malabsorption. I suspect she has at least some gastritis. Neoplasm and angiodysplasias of the GI tract are always possibilities as well. Rec: At this point the patient is not a good candidate for upper endoscopy nor colonoscopy given her frail condition, medical issues, and no report of active significant bleeding that would warrant urgent endoscopic evaluation. I would check Iron studies and otherwise maximize her nutritional status. Continue her supportive care, PPI, transfuse PRN, and avoid any blood thinners, NSAIDs, etc. Start Iron supplementation if a need is indicated by her labs. Endoscopic eval uation can be considered if she improves from a clinical standpoint, or if she develops obvious active bleeding that would warrant more aggressive intervention. Please contact me if I can be of any further assistance during the hospitalization. Thanks Time Spent With Patient Time: Total time managing care of this patient today ____ minutes.
[2022-11-02] VITALS: BP 108/68; PULSE 65; RESP 20; TEMP 36.5; O2SAT 97
--- NOTE | 2022-11-02 03:02 | CONS_ITS ---
DATE OF SERVICE: 11/01/2022 REASON FOR CONSULTATION: Anemia and heme-positive stool. HISTORY OF PRESENT ILLNESS: This has been obtained from the patient, her nurse, and the medical record. The patient is a 51-year-old female who is currently quite chronically ill after having been here in the hospital for about 2 weeks recuperating from urosepsis in relation to right-sided kidney stones. She had been at a rehab facility recuperating from a right hip fracture and subsequent surgery prior to admission here. When she was admitted to the hospital here 2 weeks ago, she was found to be quite anemic with a hemoglobin of 7.0 and MCV of 94. Her hemoglobin had been 9.2 about 8 days prior to that. She did receive 2 units of blood on admission and subsequent hemoglobins have been fairly stable, although were drifting down slowly to a level of 9.8 on October 23. They fell to a level of 7.8 on October 24 and 6.9 on October 30. She is receiving 2 more units of blood today for a hemoglobin of 8.2. She has had heme-positive stool, but today, just had brown stool according to her nurse. There has been no report of melena, nor hematochezia during the hospitalization. The patient has been on a somewhat limited diet due to her weakness and acute illness during the hospitalization. She denies any issues of dysphagia nor odynophagia. She cannot recall if she has ever had an upper endoscopy or colonoscopy. She denies any history of ulcer disease. However, she has had a previous gastric bypass several years ago with Dr. Nguyễn at [facility] in which she apparently had complications, although I do not have those records. The patient denies any history of ulcer disease. She denies any known family history of GI malignancy. MEDICATIONS: Her medication list from the rehab facility included omeprazole, Xarelto, sucralfate. Her medications here in the hospital include ascorbic acid, clonazepam, vitamin B12, Diflucan, Prozac, Dilaudid p.r.n., Lamictal, midodrine, omeprazole Zofran p.r.n., and thiamine. PAST MEDICAL HISTORY: Fracture of the right hip requiring surgery in September. The patient describes a previous hip surgery on the left side as well. She has underlying atrial fibrillation, anxiety, bipolar disease, asthma, and bronchitis. She also has hypotension and is on midodrine, migraines, and PTSD. She has had section cholecystectomy and gastric bypass in addition to the right hip surgery. SOCIAL HISTORY: She has been living by herself. She denies tobacco nor alcohol. FAMILY HISTORY: Noncontributory. REVIEW OF SYSTEMS: CONSTITUTIONAL: She is presently weak and anorectic for the most part in relation to the acute and chronic illness. CARDIAC: She denies a chest pain. PULMONARY: She denies any hemoptysis. GI: As above. PHYSICAL EXAMINATION: GENERAL: The patient is a frail, chronically ill-appearing female. She is pale. SKIN: Warm and dry. CARDIAC: Normal S1, S2. ABDOMEN: Soft, nondistended, nontender with normal bowel sounds. LABORATORIES: Stool was heme-positive in the lab. White blood cell count 20.9, hemoglobin 8.2, MCV 102, platelets 211,000, PT was 14.3 with INR 1.2 on October 30. Normal electrolytes. BUN 11, creatinine 0.6 today. LFTs from yesterday showed a total bilirubin 2.1, AST 20, ALT 9, alkaline phosphatase 104. Vitamin B12 level is over 2000 and folate level is normal in 10.4. I do not see any iron studies in her lab history. Abdominal ultrasound from last week, described a common duct measuring up to 1 cm, and she is status post cholecystectomy. There is no evidence of any common duct stones. There is no splenomegaly nor ascites. IMPRESSION: In regard to the patient's anemia and heme-positive stool this could certainly be multifactorial. She obviously is in the midst of recuperating from this acute illness of sepsis after she had already been at the rehab facility for recuperation from a right hip surgery. I suspect she does have some component of anemia of chronic disease. However I do suspect she has some component of some blood loss as well in relation to her prolonged hospitalization here and probable at least gastritis on that basis. Her gastric bypass would also predispose her to anemia as well in relation to iron malabsorption. Other GI tract abnormalities, including neoplasm and angiodysplasias, are certainly possibilities as well that could be contributing to heme-positive stool and anemia. At this point, I do not think she is a good candidate for upper endoscopy nor colonoscopy given her very frail condition, medical issues, and no report of significant active bleeding at this time that would warrant urgent endoscopic evaluation. Certainly if she shows signs of active bleeding, we could reassess that. However, if things remain as they are, I would hold off on any type of endoscopic intervention until she is stronger. I have ordered iron studies and would otherwise maximize her nutritional status. If her iron studies are low, she may benefit from supplemental iron, probably in the form of IV iron given the associated gastric bypass and potential for iron malabsorption. Certainly if she improves from a clinical standpoint, we could always have her undergo upper endoscopy and colonoscopy at some point, but at this point I would definitely hold off on that. If she develops any obvious active bleeding during the hospitalization, please advise me of that and we could have her undergo endoscopy on that basis sooner rather than later. Thank you for the consultation. MD PAT Ramirez/VASQUEZ / [id number] MTDD
[2022-11-02 03:29] VITALS: BP 113/69; PULSE 59; RESP 20; TEMP 36.5; O2SAT 94
[2022-11-02 06:00] VITALS: BMI 20.2
[2022-11-02 07:39] LABS: Hematocrit 35.4 % (37.0-47.0); Hemoglobin 11.6 g/dl (12.0-16.0); Mean Corpuscular HGB Conc 32.8 g/dl (31.0-35.0); Mean Corpuscular Volume 100.6 fL (80.0-98.0); Mean Platelet Volume 10.8 fL (9.4-12.3); Platelet Count 206 X10*3/uL (160-400); Red Blood Count 3.52 X10*6/uL (4.20-5.50); Red Cell Distribution Width 20.1 % (11.0-16.0); White Blood Count 13.3 X10*3/uL (4.8-10.8)
[2022-11-02 07:59] VITALS: BP 107/54; PULSE 56; RESP 18; TEMP 36.9; O2SAT 98
[2022-11-02 08:06] LABS: Anion Gap 13 (12-20); Blood Urea Nitrogen 10 mg/dL (9-16); Calcium 8.4 mg/dL (8.4-10.2); Carbon Dioxide 23 mmol/L (22-29); Chloride 108 mmol/L (96-108); Creatinine Clr Calc Pharmacy 98.6; Estimated Glomerular Filt Rate > 60; Glucose Random 63 mg/dL (60-115); Iron 17 mcg/dL (30-160); Percent Iron Saturation 12 % (15-50); Phosphorus 2.6 mg/dL (2.7-4.5); Potassium 3.5 mmol/L (3.3-5.1); Sodium 140 mmol/L (135-145); Total Iron Binding Capacity 142 mcg/dL (228-428); Unsaturated Iron Binding 125 ug/dL
[2022-11-02 08:08] LABS: B Type Natriuretic Peptide 1302 pg/mL (<100)
[2022-11-02 08:25] LABS: Ferritin 700 ng/mL (10-250)
[2022-11-02] MEDS: Thiamine HCL 100 MG TABLET PO (09:11)
[2022-11-02] MEDS: Cyanocobalamin (Vitamin B-12) 500 MCG TABLET PO (09:11)
[2022-11-02] MEDS: lamoTRIgine 25 MG TABLET 150 MG PO ×2 (09:11→21:03)
[2022-11-02] MEDS: clonazePAM 0.5 MG TABLET PO ×3 (09:11→21:03)
[2022-11-02] MEDS: Midodrine HCl 10 MG TABLET PO ×3 (09:11→21:03)
[2022-11-02] MEDS: Ascorbic Acid 250 MG TABLET PO (09:12)
[2022-11-02] MEDS: Omeprazole 40 MG CAPSULE.DR PO (09:12)
[2022-11-02] MEDS: FLUoxetine HCl 20 MG CAPSULE PO (09:12)
[2022-11-02] MEDS: Fluconazole 100 MG TABLET PO (09:12)
[2022-11-02 12:00] VITALS: BP 113/69; PULSE 54; RESP 18; TEMP 37.4; O2SAT 97
--- NOTE | 2022-11-02 13:18 | P.PNIM_ITS ---
Subjective Subjective Date of Service: 11/03/22 Interval History: Complaining of wheezing denies chest pain, no shortness of breath sitting comfortably on chair, tolerating diet, no nausea, no vomiting, no abdominal pain or diarrhea, no acute issues overnight finger oximetry stable on 3 L by nasal cannula. Review of Systems Review of Systems: Yes all other systems are reviewed and are negative Physical Exam Vital Signs: Vital Signs: Last Vital Signs Temp 99.3 F 11/02/22 12:00 Pulse 54 11/02/22 12:00 Resp 18 11/02/22 12:00 BP 113/69 11/02/22 12:00 Pulse Ox 97 11/02/22 12:00 O2 Del Method 11/02/22 12:00 O2 Flow Rate 3 11/02/22 12:00 FiO2 45 10/29/22 04:00 BMI result Body Mass Index 20.2 Const: Other: Gen: Awake alert ,frail, in no acute distress . HEENT: sclera anicteric, moist mucus membranes, pallor Neck: supple Lungs: diminished bilaterally, no wheeze no use of accessory muscles Heart: regular rate and rhythm, no murmurs Abd: soft, non-tender, non-distended Ext: no edema Skin: warm/well-perfused , petechial rash face neck and arms Neuro: alert and oriented x3, no focal findings Psych: appropriate affect ? Objective Data Active Medications Ascorbic Acid (Ascorbic Acid 250 Mg Tablet) 250 mg PO DAILY [facility] Last Admin: 11/02/22 09:12 Dose: 250 mg Documented By: UMA Clonazepam (Clonazepam 0.5 Mg Tablet) 0.5 mg PO TID [facility] Last Admin: 11/02/22 09:11 Dose: 0.5 mg Documented By: UMA Cyanocobalamin (Cyanocobalamin (Vitamin B-12) 500 Mcg Tablet) 500 mcg PO DAILY [facility] Last Admin: 11/02/22 09:11 Dose: 500 mcg Documented By: UMA Fluconazole (Fluconazole 100 Mg Tablet) 100 mg PO DAILY [facility] Last Admin: 11/02/22 09:12 Dose: 100 mg Documented By: UMA Fluoxetine HCl (Fluoxetine Hcl 20 Mg Capsule) 20 mg PO DAILY [facility] Last Admin: 11/02/22 09:12 Dose: 20 mg Documented By: HO.N-SOFFA Hydromorphone HCl (Hydromorphone Hcl 0.5 Mg/0.5 Ml Syringe) 0.5 mg IVPUSH Q2H PRN; Protocol PRN Reason: Pain, Severe (Pain Scale 7-10) Lamotrigine (Lamotrigine 25 Mg Tablet) 150 mg PO BID [facility] Last Admin: 11/02/22 09:11 Dose: 150 mg Documented By: JOSE-KD Midodrine (Midodrine Hcl 10 Mg Tablet) 10 mg PO TID [facility] Last Admin: 11/02/22 09:11 Dose: 10 mg Documented By: JOSE-KD Omeprazole (Omeprazole 40 Mg Capsule.Dr) 40 mg PO DAILY [facility] Last Admin: 11/02/22 09:12 Dose: 40 mg Documented By: JOSE-KD Ondansetron HCl (Ondansetron Hcl 4 Mg/2 Ml Vial) 4 mg IVPUSH Q6H PRN PRN Reason: Nausea Last Admin: 10/30/22 17:17 Dose: 4 mg Documented By: SHANELLEIMAGina Thiamine HCl (Thiamine Hcl 100 Mg Tablet) 100 mg PO DAILY [facility] Last Admin: 11/02/22 09:11 Dose: 100 mg Documented By: UMA Labs CBC & Chem 7: 11/02/22 06:51 11/02/22 06:51 Labs: Laboratory Results - last 24 hr 11/01/22 11/02/22 11/02/22 10:47 06:51 06:51 MCV 100.6 H MCH 33.0 MCHC 32.8 RDW 20.1 H Plt Count 206 MPV 10.8 Absolute Nucleated RBC 0.000 Nucleated RBC % (auto) 0.0 Anion Gap 13 Estim Creat Clear Calc 98.6 Estimated GFR > 60 Random Glucose 63 Calcium 8.4 Phosphorus 2.6 L Iron 17 L TIBC 142 L % Saturation 12 L Unsat Iron Binding 125 Ferritin B-Natriuretic Peptide Blood Type O Positive Antibody Screen NEGATIVE Crossmatch See Detail 11/02/22 11/02/22 06:51 06:51 MCV MCH MCHC RDW Plt Count MPV Absolute Nucleated RBC Nucleated RBC % (auto) Anion Gap Estim Creat Clear Calc Estimated GFR Random Glucose Calcium Phosphorus Iron TIBC % Saturation Unsat Iron Binding Ferritin 700 H B-Natriuretic Peptide 1302 H Blood Type Antibody Screen Crossmatch Microbiology Microbiology Results: Microbiology 10/28/22 07:36 Blood Culture - Final Blood - Venous No growth after 5 days. 10/28/22 07:36 Blood Culture - Final Blood - Venous No growth after 5 days. Assessment and Plan (1) Right heart failure: Status: Acute (2) Acute respiratory failure with hypoxia: Status: Acute Plan 51yo F with anxiety, bipolar disorder, asthma, gastric bypass surgery, paroxysmal AF, chronic hypotension on midodrine, migraines, PTSD, and recurrent UTIs thought due to nephrolithiasis admitted to ICU 10/19/22 with septic shock with UTI/bacteremia from obstructing R ureteral stone with hydronephrosis started on norepi, underwent cystoscopy + R ureteral stent in [place] 10/19 blood and urine cultures grew Klebsiella sensitive to levofloxacin ICU course complicated by precipitous thrombocytopenia due to sepsis, then hypoxic respiratory failure due to cor pulmonale and pneumonia was on HFNC + NRB, then CPAP aggressively diuresed with furosemide found to have funguria question of secretory diarrhea treated with cholestyramine + octreotide now off levofloxacin + norepi [place] [facility] [place] # macrocytic anemia - status post 2 units of packed RBC hematocrit improved from 21.3-35.4, normal B12 and folate, Seen by Dr. Calvo since there is no evidence of active bleeding no urgent endoscopy is warranted, he recommend to give IV iron if noted to have iron deficiency but patient iron studies are not compatible with iron deficiency anemia. Likely anemia is due to acute illness, and positive heme-positive stool likely due to gastritis, neoplasm and angiodysplasia of the GI tract are also pos sibilities as well, recommend outpatient GI follow-up # severe R-sided HF - no PE; likely acute cor pulmonale due to ARDS from urosepsis. Appear no euvolemic, seen by Cardiology, Limited TTE 11/03/22 to re-assess RV systolic function. # chronic hypotension - continue midodrine # obstructive uropathy due to R ureterolithiasis - s/p ureteral stent 10/19, seen by his Dr. Gomez he recommend stent removal and lithotripsy on Saturday 11/03 # urosepsis with Klebsiella bacteremia - s/p levofloxacin course # acute hypoxic respiratory failure - due to pulmonary edema/ARDS; improving and currently on 3L via NC to wean further as tolerated # hx paroxysmal atrial fibrillation - was on rivaroxaban as outpt but [id number] is 0 and as such does not need it # candiduria - fluconazole PO, d#4 # ELYSE - resolved, suspect was due to prerenal ELYSE/septic ATN # hyperbili - due to congestive hepatopathy, resolving # hypoK - repleted # hyperNa - resolved # hypoPO4 - replete with KPhos, repeat phosphorous 2.6 # metabolic alkalosis - resolved # diarrhea - trial off cholestyarmine + octreotide, stool studies negative; diarrhea resolved # bipolar disorder - continue clonazepam, fluoxetine, and lamotrigine # VTE ppx: SCDs # dispo: STR In my clinical judgment, the patient requires continued inpatient hospitalization for the following reasons: hypoxia, and follow-up right-sided heart failure Time Spent With Patient Time: Total time managing care of this patient today ____ minutes. Quality Stroke Does the patient have a stroke diagnosis?: No VTE Prior VTE?: No VTE Risk Level:: Medical - moderate - high VTE Device Contraindication: N/A - Device Ordered VTE Drug Contraindication: N/A - Med Ordered
[2022-11-02 15:20] VITALS: BP 125/78; PULSE 63; RESP 17; TEMP 36.6; O2SAT 99
[2022-11-02 19:54] VITALS: BP 111/74; PULSE 61; RESP 18; TEMP 35.8; O2SAT 98
[2022-11-03] VITALS (8 sets, daily range): BP systolic 99–119; BP diastolic 58–77; PULSE 58–84; RESP 12–18; TEMP 36–36.9; O2SAT 95–100; BMI 20.5
--- NOTE | 2022-11-03 07:00 | CA_ITS ---
Transthoracic Echocardiogram Patient (Last, First, Middle): Sandrita Davalos, Gender: Female Date of : 1970 Age: 51 Procedure Date: 11/03/2022 Procedure Type: Transthoracic Echocardiogram Location: [facility] [place] Height: 149.86 cm Weight: 45.81 kg BSA: 1.38 m2 Heart Rate: 57 bpm BP: 110 / 71 mmHg Coal Cager: SB Referring MD: Esther Ortiz MD Symptoms: HF f/u RV systolic function Study Quality: Adequate ECG Rhythm: Bradycardia Conclusions: - Normal right ventricular cavity size and systolic function. - The inferior vena cava is normal in size and does not collapse with inspiration. Findings Right Ventricle Normal right ventricular cavity size and systolic function. Tricuspid Valve There is trace tricuspid valve regurgitation. Venous The inferior vena cava is normal in size and does not collapse with inspiration. Prior Study Comparison Changes noted compared to prior study dated: 10/23/2022. Improved RV size and function. Measurements Right Ventricle TAPSE (mm): 18.80 TVS' Lv: 9.68 Tricuspid Valve TR Pk Lv: 2.33 TR Pk Grad: 22.00 RA Press: 8.00 RVSP: 30.00 Updated in Other Vendor System with Status of Final Jeramie Bauer MD electronically signed on 11/03/2022 11:30:44 AM with status of Final
--- NOTE | 2022-11-03 11:25 | MHC.CM.PN ---
Addendum entered by Janay Sung 11/03/22 12:49: has schedule stent removal and lithotripsey today. Spoke with patients Mother. She requested that a referral be made to the [facility] in [place]. A referral has been sent. They do not have a bed today. CM will follow. Original Note: IMM 11/03/22 Patient scheduled for [facility] is the only bed offered today. Patient states that she does not want to go to [facility]. She wants to be in the [place] area; because it is closer to family. [facility] in following. No bed available today. It has been explained to the patient that if another bed can not be obtained for discharge, She will return to [facility]. A LTC bed search will resume from [facility]. Patient will transport via BLS.
--- NOTE | 2022-11-03 11:53 | MHC.SLORD ---
Speech Language Pathology Order Status: Patient is NPO for surgery today. Patient reported that she has been eating, but was made NPO on afternoon of 11/02/22. Will continue to follow.
--- NOTE | 2022-11-03 14:10 | P.PNIM_ITS ---
Subjective Subjective Date of Service: 11/04/22 Interval History: complaining of shortness of breath, cough unable to bring up phlegm,no fevers no chills, tolerating diet no nausea, no vomiting, no abdominal pain, no diarrhea, is scheduled for limited echocardiogram and also Urology procedure for stent removal and lithotripsy. Review of Systems Review of Systems: Yes all other systems are reviewed and are negative Physical Exam Vital Signs: Vital Signs: Last Vital Signs Temp 98.0 F 11/03/22 11:40 Pulse 69 11/03/22 11:40 Resp 14 11/03/22 11:40 BP 113/77 11/03/22 11:40 Pulse Ox 100 11/03/22 11:40 O2 Del Method 11/03/22 11:40 O2 Flow Rate 3 11/03/22 11:40 FiO2 45 10/29/22 04:00 BMI result Body Mass Index 20.5 Const: Other: Gen:? Awake alert ,frail, in no acute distress . HEENT: sclera anicteric, moist mucus membranes, pallor Neck: supple Lungs: bilateral expiratory wheeze, no use of accessory muscles. Heart: regular rate and rhythm, no murmurs Abd: soft, non-tender, non-distended Ext: no edema Skin: warm/well-perfused , petechial rash face, neck and arms. Neuro: alert and oriented x3, no focal findings Psych: appropriate affect Objective Data Active Medications Ascorbic Acid (Ascorbic Acid 250 Mg Tablet) 250 mg PO DAILY [facility] Last Admin: 11/03/22 09:12 Dose: Not Given Documented By: MACIEJ Non-Admin Reason: NPO Clonazepam (Clonazepam 0.5 Mg Tablet) 0.5 mg PO TID [facility] Last Admin: 11/03/22 09:15 Dose: Not Given Documented By: MACIEJ Non-Admin Reason: NPO Cyanocobalamin (Cyanocobalamin (Vitamin B-12) 500 Mcg Tablet) 500 mcg PO DAILY [facility] Last Admin: 11/03/22 09:15 Dose: Not Given Documented By: MACIEJ Non-Admin Reason: NPO Fluconazole (Fluconazole 100 Mg Tablet) 100 mg PO DAILY [facility] Last Admin: 11/03/22 09:15 Dose: Not Given Documented By: MACIEJ Non-Admin Reason: NPO Fluoxetine HCl (Fluoxetine Hcl 20 Mg Capsule) 20 mg PO DAILY [facility] Last Admin: 11/03/22 09:15 Dose: Not Given Documented By: MACIEJ Non-Admin Reason: NPO Hydromorphone HCl (Hydromorphone Hcl 0.5 Mg/0.5 Ml Syringe) 0.5 mg IVPUSH Q2H PRN; Protocol PRN Reason: Pain, Severe (Pain Scale 7-10) Lamotrigine (Lamotrigine 25 Mg Tablet) 150 mg PO BID [facility] Last Admin: 11/03/22 09:15 Dose: Not Given Documented By: MACIEJ Non-Admin Reason: NPO Midodrine (Midodrine Hcl 10 Mg Tablet) 10 mg PO TID [facility] Last Admin: 11/03/22 09:15 Dose: Not Given Documented By: MACIEJ Non-Admin Reason: NPO Omeprazole (Omeprazole 40 Mg Capsule.Dr) 40 mg PO DAILY [facility] Last Admin: 11/03/22 09:15 Dose: Not Given Documented By: MACIEJ Non-Admin Reason: NPO Ondansetron HCl (Ondansetron Hcl 4 Mg/2 Ml Vial) 4 mg IVPUSH Q6H PRN PRN Reason: Nausea Last Admin: 10/30/22 17:17 Dose: 4 mg Documented By: KARL Thiamine HCl (Thiamine Hcl 100 Mg Tablet) 100 mg PO DAILY [facility] Last Admin: 11/03/22 09:15 Dose: Not Given Documented By: MACIEJ Non-Admin Reason: NPO Labs CBC & Chem 7: 11/02/22 06:51 11/02/22 06:51 Microbiology Microbiology Results: Microbiology 10/28/22 07:36 Blood Culture - Final Blood - Venous No growth after 5 days. 10/28/22 07:36 Blood Culture - Final Blood - Venous No growth after 5 days. Assessment and Plan (1) Right heart failure: Status: Acute (2) Acute respiratory failure with hypoxia: Status: Acute Plan 51yo F with anxiety, bipolar disorder, asthma, gastric bypass surgery, paroxysmal AF, chronic hypotension on midodrine, migraines, PTSD, and recurrent UTIs thought due to nephrolithiasis admitted to ICU 10/19/22 with septic shock with UTI/bacteremia from obstructing R ureteral stone with hydronephrosis started on norepi, underwent cystoscopy + R ureteral stent in [place] 10/19 blood and urine cultures grew Klebsiella sensitive to levofloxacin ICU course complicated by precipitous thrombocytopenia due to sepsis, then hypoxic respiratory failure due to cor pulmonale and pneumonia was on HFNC + NRB, then CPAP aggressively diuresed with furosemide found to have funguria question of secretory diarrhea treated with cholestyramine + octreotide now off levofloxacin + norepi stepped down [place] [facility] [place] # acute hypoxic respiratory failure - due to pulmonary edema/ARDS; improving and currently on 3L via NC to wean further as tolerated # acute asthma exacerbation with underlying ch persistent asthma patient noted to have bilateral wheeze, shortness of breath and cough, will place on schedule updraft treatment IV steroids and obtain a chest x-ray continue oxygen support as above, add cough medication # macrocytic anemia - status post 2 units of packed RBC hematocrit improved from 21.3-35.4, normal B12 and folate, Seen by Dr. Calvo since there is no evidence of active bleeding no urgent endoscopy is warranted, he recommend to give IV iron if noted to have iron deficiency but patient iron studies are not compatible with iron deficiency anemia. Likely anemia is due to acute illness, and positive heme-positive stool likely due to gastritis, neoplasm and angiodysplasia of the GI tract are also possibilities as well, recommend outpatient GI follow-up # severe R-sided HF - no PE; likely acute cor pulmonale due to ARDS from urosepsis. Appear euvolemic, seen by Cardiology, Limited TTE to re-assess RV systolic function is scheduled for today. # chronic hypotension - continue midodrine # obstructive uropathy due to R ureterolithiasis - s/p ureteral stent 10/19, seen by his Dr. Gomez he recommend stent removal and lithotripsy procedure was planned for today but since patient was short of breath this morning it was felt that patient is not safe for anesthesia therefore procedure has been postponed # urosepsis with Klebsiella bacteremia - s/p levofloxacin course # hx paroxysmal atrial fibrillation - was on rivaroxaban as outpt but [id number] is 0 and as such does not need it. # candiduria - fluconazole PO, d#04/01 # ELYSE - resolved, suspect was due to prerenal ELYSE/septic ATN # hyperbili - due to congestive hepatopathy, resolving # hypoK - repleted # hyperNa - resolved # hypoPO4 - replete with KPhos, repeat phosphorous 2.6 # metabolic alkalosis - resolved # diarrhea - trial off cholestyarmine + octreotide, stool studies negative; diarrhea resolved # bipolar disorder - continue clonazepam, fluoxetine, and lamotrigine # VTE ppx: SCDs # dispo: STR In my clinical judgment, the patient requires continued inpatient hospitalization for the following reasons: hypoxia, and follow-up right-sided heart failure Time Spent With Patient Time: Total time managing care of this patient today ____ minutes. Quality Stroke Does the patient have a stroke diagnosis?: No VTE Prior VTE?: No VTE Risk Level:: Medical - moderate - high VTE Device Contraindication: N/A - Device Ordered VTE Drug Contraindication: N/A - Med Ordered
--- NOTE | 2022-11-03 14:16 | PC.NURSE ---
Dr. Jain and Dr. Gomez at bedside plan to communicate with hospitalist and cancel case for today see tachypnea and looking to optimize prior to reattempt procedure.
[2022-11-03] MEDS: clonazePAM 0.5 MG TABLET PO ×2 (15:17→22:06)
[2022-11-03] MEDS: Midodrine HCl 10 MG TABLET PO ×2 (15:17→22:06)
[2022-11-03] MEDS: Albuterol/Iprat 2.5/0.5MG 3 ML AMPUL.NEB INHALE (17:09)
[2022-11-03] MEDS: lamoTRIgine 25 MG TABLET 150 MG PO (22:06)
[2022-11-04] VITALS (8 sets, daily range): BP systolic 105–141; BP diastolic 62–79; PULSE 58–89; RESP 16–20; TEMP 36.1–37.1; O2SAT 92–100; BMI 18.5
[2022-11-04] MEDS: Albuterol/Iprat 2.5/0.5MG 3 ML AMPUL.NEB INHALE ×2 (07:19→15:05)
[2022-11-04] MEDS: Omeprazole 40 MG CAPSULE.DR PO (09:10)
[2022-11-04] MEDS: lamoTRIgine 25 MG TABLET 150 MG PO ×2 (09:10→22:04)
[2022-11-04] MEDS: Fluconazole 100 MG TABLET PO (09:11)
[2022-11-04] MEDS: methylPREDNISolone Sod Succ 40 MG/ML VIAL IVPUSH ×2 (09:11→22:06)
[2022-11-04] MEDS: FLUoxetine HCl 20 MG CAPSULE PO (09:11)
[2022-11-04] MEDS: Thiamine HCL 100 MG TABLET PO (09:11)
[2022-11-04] MEDS: Midodrine HCl 10 MG TABLET PO (09:11)
[2022-11-04] MEDS: Ascorbic Acid 250 MG TABLET PO (09:11)
[2022-11-04] MEDS: clonazePAM 0.5 MG TABLET PO ×3 (09:11→22:05)
[2022-11-04] MEDS: Cyanocobalamin (Vitamin B-12) 500 MCG TABLET PO (09:11)
--- NOTE | 2022-11-04 11:54 | P.PNIM_ITS ---
Subjective Subjective Date of Service: 11/04/22 Interval History: Feeling better this morning, complaining of less shortness of breath, denies fever, chills, no chest pain, no palpitations, she had 3 stools yesterday and 1 more large soft stool today, denies associated abdominal discomfort, no foul odor. Review of Systems Review of Systems: Yes all other systems are reviewed and are negative Physical Exam Vital Signs: Vital Signs: Last Vital Signs Temp 98.8 F 11/04/22 11:14 Pulse 59 11/04/22 11:14 Resp 16 11/04/22 11:14 BP 141/79 H 11/04/22 11:14 Pulse Ox 99 11/04/22 11:14 O2 Del Method 11/04/22 11:14 O2 Flow Rate 2 11/04/22 11:14 FiO2 45 10/29/22 04:00 BMI result Body Mass Index 18.5 Const: Other: Gen:? Awake alert ,frail, in no acute distress . HEENT: sclera anicteric, moist mucus membranes, pallor Neck: supple Lungs:? bilateral expiratory wheeze,? no use of accessory muscles. Heart: regular rate and rhythm, no murmurs Abd: soft, non-tender, non-distended Ext: no edema Skin: warm/well-perfused , petechial rash face, neck and arms. Neuro: alert and oriented x3, no focal findings Psych: appropriate affect Objective Data Active Medications Albuterol/Ipratropium (Albuterol/Iprat 2.5/0.5mg 3 Ml Ampul.Neb) 3 ml INHALE RQ4H WHILE AWAKE [facility] Last Admin: 11/04/22 11:10 Dose: Not Given Documented By: KATHY Non-Admin Reason: Off Unit: Surgery Ascorbic Acid (Ascorbic Acid 250 Mg Tablet) 250 mg PO DAILY [facility] Last Admin: 11/04/22 09:11 Dose: 250 mg Documented By: MACIEJ Clonazepam (Clonazepam 0.5 Mg Tablet) 0.5 mg PO TID [facility] Last Admin: 11/04/22 09:11 Dose: 0.5 mg Documented By: MACIEJ Cyanocobalamin (Cyanocobalamin (Vitamin B-12) 500 Mcg Tablet) 500 mcg PO DAILY [facility] Last Admin: 11/04/22 09:11 Dose: 500 mcg Documented By: MACIEJ Fluconazole (Fluconazole 100 Mg Tablet) 100 mg PO DAILY [facility] Last Admin: 11/04/22 09:11 Dose: 100 mg Documented By: MACIEJ Fluoxetine HCl (Fluoxetine Hcl 20 Mg Capsule) 20 mg PO DAILY [facility] Last Admin: 11/04/22 09:11 Dose: 20 mg Documented By: MACIEJ Fluticasone/Vilanterol (Fluticasone/Vilanterol 100/25 Blst.W.Dev) 1 puff INHALE RDAILY [facility] Last Admin: 11/04/22 07:20 Dose: Not Given Documented By: KATHY Non-Admin Reason: Med Not Available Hydromorphone HCl (Hydromorphone Hcl 0.5 Mg/0.5 Ml Syringe) 0.5 mg IVPUSH Q2H PRN; Protocol PRN Reason: Pain, Severe (Pain Scale 7-10) Lamotrigine (Lamotrigine 25 Mg Tablet) 150 mg PO BID [facility] Last Admin: 11/04/22 09:10 Dose: 150 mg Documented By: MACIEJ Methylprednisolone Sodium Succinate (Methylprednisolone Sod Succ 40 Mg/Ml Vial) 40 mg IVPUSH Q12H [facility] Last Admin: 11/04/22 09:11 Dose: 40 mg Documented By: MACIEJ Midodrine (Midodrine Hcl 10 Mg Tablet) 10 mg PO TID [facility] Last Admin: 11/04/22 09:11 Dose: 10 mg Documented By: MACIEJ Omeprazole (Omeprazole 40 Mg Capsule.Dr) 40 mg PO DAILY [facility] Last Admin: 11/04/22 09:10 Dose: 40 mg Documented By: MACIEJ Ondansetron HCl (Ondansetron Hcl 4 Mg/2 Ml Vial) 4 mg IVPUSH Q6H PRN PRN Reason: Nausea Last Admin: 10/30/22 17:17 Dose: 4 mg Documented By: KARL Thiamine HCl (Thiamine Hcl 100 Mg Tablet) 100 mg PO DAILY [facility] Last Admin: 11/04/22 09:11 Dose: 100 mg Documented By: MACIEJ Labs CBC & Chem 7: 11/02/22 06:51 11/02/22 06:51 Assessment and Plan (1) Right heart failure: Status: Acute (2) Acute respiratory failure with hypoxia: Status: Acute Plan 51yo F with anxiety, bipolar disorder, asthma, gastric bypass surgery, paroxysmal AF, chronic hypotension on midodrine, migraines, PTSD, and recurrent UTIs thought due to nephrolithiasis admitted to ICU 10/19/22 with septic shock with UTI/bacteremia from obstructing R ureteral stone with hydronephrosis started on norepi, underwent cystoscopy + R ureteral stent in [place] 10/19 blood and urine cultures grew Klebsiella sensitive to levofloxacin ICU course complicated by precipitous thrombocytopenia due to sepsis, then hypoxic respiratory failure due to cor pulmonale and pneumonia was on HFNC + NRB, then CPAP aggressively diuresed with furosemide found to have funguria question of secretory diarrhea treated with cholestyramine + octreotide now off levofloxacin + norepi stepped down to [facility] 10/30/22 # acute hypoxic respiratory failure - due to pulmonary edema/ARDS; improving and currently on 3L via NC to wean further as tolerated # acute asthma exacerbation with underlying ch persistent asthma Feels better this morning continue schedule updraft treatment IV steroids and chest x-ray showed diffuse bilateral multi lobar airspace disease unchanged from prior imaging study continue oxygen support as above, cont. cough medication # macrocytic anemia - status post 2 units of packed RBC hematocrit improved from 21.3-35.4, normal B12 and folate, Seen by Dr. Calvo since there is no evidence of active bleeding no urgent endoscopy is warranted, he recommend to give IV iron if noted to have iron deficiency but patient iron studies are not compatible with iron deficiency anemia. Likely anemia is due to acute illness, and positive heme-positive stool likely due to gastritis, neoplasm and angiodysplasia of the GI tract are also possibilities as well, recommend outpatient GI follow-up # severe R-sided HF - no PE; likely acute cor pulmonale due to ARDS from urosepsis. Appear euvolemic, seen by Cardiology, Limited TTE be showed normal right ventricular cavity size and systolic function, suggestive of improved right ventricular size and function # chronic hypotension - continue midodrine will reduce dose to 5 mg t.i.d. # obstructive uropathy due to R ureterolithiasis - s/p ureteral stent 10/19, seen by his Dr. Gomez he recommend stent removal and lithotripsy procedure to be done once patient clinically stable # urosepsis with Klebsiella bacteremia - s/p levofloxacin course # hx paroxysmal atrial fibrillation - was on rivaroxaban as outpt but [id number] is 0 and as such does not need it. # candiduria - fluconazole PO, d#05/02 # ELYSE - resolved, suspect was due to prerenal ELYSE/septic ATN # hyperbili - due to congestive hepatopathy, resolved # hypoK - repleted # hyperNa - resolved # hypoPO4 - replete with KPhos, repeat phosphorous 2.6 # metabolic alkalosis - resolved # diarrhea - trial off cholestyarmine + octreotide, stool studies negative; patient noted to have recurrent diarrhea will check C diff and give Imodium if C diff negative # bipolar disorder - continue clonazepam, fluoxetine, and lamotrigine # VTE ppx: SCDs # dispo: STR In my clinical judgment, the patient requires continued inpatient hospitalization for the following reasons: hypoxia, and follow-up right-sided heart failure Time Spent With Patient Time: Total time managing care of this patient today ____ minutes. Quality Stroke Does the patient have a stroke diagnosis?: No VTE Prior VTE?: No VTE Risk Level:: Medical - moderate - high VTE Device Contraindication: N/A - Device Ordered VTE Drug Contraindication: N/A - Med Ordered
[2022-11-04] MEDS: Loperamide HCl 2 MG CAPSULE 4 MG PO (13:00)
--- NOTE | 2022-11-04 13:58 | MHC.SL.SWA ---
Speech Pathologist Impression: Risk of Aspiration Due to: Lethargy Medically Fragile Weak Cough Weak Voice Dysphasia Diet Status: Pt is tolerating REGULAR diet with THIN liquids, although she continues to eat only small amounts at any meal. Patient demonstrated that she needs some assistance and supervision with meal, particularly with making sure all items are accessible and that patient is progressing with meal. Encourage patient to take some items off tray to be eaten at a later time if she eats only small amounts (patient would benefit from smaller more frequent meals to encourage PO intake). Liquid Consistency and Strategies for Safe Swallow: Liquid Intake Recommendation: Thin Liquid Intake Strategies: Small Sips Solid Food Consistency: Dietary Recommendations: Regular Additional Modifications to Solid Foods: Patient will need assistance with cutting up food into manageable, bite size pieces, and with opening and making accessible all items on tray. Oral Medication Intake: Crushed with Puree Please contact the pharmacy regarding appropriate crushable or liquid drug formulations that are available whenever modified delivery is recommended. Compensatory Strategies and Precautions to be Taken for Safe Swallow: Sitting Upright (90 deg) Small Bites and Sips Alternate Liquids/Solids Supervision While Eating and Drinking for Safe Swallow: Intermittent Supervision Foods to Avoid: Swallowing Recommended Treatments: Recommendation for Speech: Outpatient Speech Therapy Inpatient Speech Therapy Comment:Pt noted to have been advanced to regular diet with thin liquids by MD on 11/03/22. Pt was seen at lunch for toleration of these consistencies. Patient was alone in room with tray, had turkey sandwich on plate and was trying to open a mayonnaise packet, which she was then assisted with. Patient was noted to need assistance with multiple needs during meal: e.g. requested towel to cover chest ( I've spilled before ), open drinks to be put in more manageable cup, open straws, cut up sandwich, open dessert container, get straw for ensure shake. Patient was at times seemingly confused: attempted to cut sandwich with a fork, attempted to spear uncut part of sandwich with a fork... Patient was observed taking bites of part of sandwich cut up for her (turkey with bread and mayonnaise). Patient produced a slow rotary chew on small bites of solids, produced a timely swallow, no clinical signs of aspiration. Pt additionally took bites of rice, chicken and veg from soup on tray, produced a more timely oral phase on softer foods. Pt was observed taking sips of liquid by straw, took small sips, no clinical signs of aspiration. Patient also ate jello with no difficulties. Noted that patient took two to three bites of each element on tray, then stated I am full after small amount ingested. Recommended to patient that she try to drink all of the ensure supplement as she had eaten very little at meal. Patient's family arrived, encouraged family members to continue to encourage Pt to eat more. Pt is tolerating REGULAR diet with THIN liquids, although she continues to eat only small amounts at any meal. Patient demonstrated that she needs some assistance and supervision with meal, particularly with making sure all items are accessible and that patient is progressing with meal. Frequency/Duration: Date Range for Service Req: Timeline to reassess: Tobacco Hanger Clinican/Clinical Fellow: No Supervisory Statement: I have reviewed and agree with the student/clinical fellow's documentation: N/A Speech Language Pathologist: Rain Rodriguez M.A., CCC-POSTAL CARRIER
[2022-11-04] MEDS: guaiFENesin DM 100/10/5 ML 5 ML SYRUP 10 ML PO ×2 (15:33→22:08)
[2022-11-04] MEDS: Midodrine HCl 5 MG TABLET PO ×2 (15:33→22:05)
[2022-11-04] MEDS: ondansetron HCL 4 MG/2 ML VIAL IVPUSH (18:28)
[2022-11-05] VITALS (10 sets, daily range): BP systolic 104–120; BP diastolic 67–80; PULSE 63–84; RESP 15–20; TEMP 36.3–36.9; O2SAT 92–99; BMI 19.5
[2022-11-05] MEDS: Albuterol/Iprat 2.5/0.5MG 3 ML AMPUL.NEB INHALE ×4 (00:09→20:25)
[2022-11-05] MEDS: Ketorolac Tromethamine 15 MG/ML VIAL IVPUSH (06:24)
--- NOTE | 2022-11-05 07:36 | P.CDIC_ITS ---
CDI Concurrent Query Documentation Clarification: PHYSICIAN'S DOCUMENTATION REQUEST Date of Query: 11/05/22 0736 Patient Name: Sandrita Davalos Admit Date: 10/18/22 Dear Doctor, Please review the following and provide your response in the progress notes. Clinical Indicators: The diagnosis of asthma was documented in the record on 11/03/22. Additional clinical indicators from the record include: Risk Factors/Clinical Indicators/Treatments ?acute asthma exacerbation with underlying ch persistent asthma on Duoneb Based on the above, please clarify in the Progress Notes further specificity regarding the type and acuity of the asthma: Type: * Mild persistent - more than 2x/week but not daily * Moderate persistent - daily and may restrict physical activity * Severe persistent - throughout the day with frequent attacks, limiting activities * Other ? please specify * Unable to determine Use of terms such as suspected, likely, concern for, or probable (associated with a specific diagnosis that is being evaluated, monitored, or treated as if it exists) are acceptable and can be coded in the inpatient setting, when documented at the time of discharge. Thank you, Angie Kramer RN Extension: [phone] Please use your independent medical judgment in providing your response. THIS QUERY IS PART OF THE PERMANENT MEDICAL RECORD Provider Response: Other Other Diagnosis: see note
[2022-11-05] MEDS: Fluconazole 100 MG TABLET PO (10:15)
[2022-11-05] MEDS: methylPREDNISolone Sod Succ 40 MG/ML VIAL IVPUSH (10:15)
[2022-11-05] MEDS: FLUoxetine HCl 20 MG CAPSULE PO (10:15)
[2022-11-05] MEDS: lamoTRIgine 25 MG TABLET 150 MG PO ×2 (10:15→21:05)
[2022-11-05] MEDS: Thiamine HCL 100 MG TABLET PO (10:15)
[2022-11-05] MEDS: Midodrine HCl 5 MG TABLET PO ×3 (10:16→21:05)
[2022-11-05] MEDS: guaiFENesin DM 100/10/5 ML 5 ML SYRUP 10 ML PO ×3 (10:16→21:05)
[2022-11-05] MEDS: Cyanocobalamin (Vitamin B-12) 500 MCG TABLET PO (10:16)
[2022-11-05] MEDS: Ascorbic Acid 250 MG TABLET PO (10:16)
[2022-11-05] MEDS: clonazePAM 0.5 MG TABLET PO ×3 (10:16→21:05)
--- NOTE | 2022-11-05 13:21 | P.PNIM_ITS ---
Subjective Subjective Date of Service: 11/05/22 Interval History: Patient feels better denies shortness of breath, no cough no chest discomfort no other acute issues overnight, wants to know when she will undergo cystoscopy, denies fever, chills, no other acute issues overnight, tolerating diet with no nausea vomiting or abdominal pain.. Review of Systems Review of Systems: Yes all other systems are reviewed and are negative Physical Exam Vital Signs: Vital Signs: Last Vital Signs Temp 98.1 F 11/05/22 07:26 Pulse 63 11/05/22 07:50 Resp 18 11/05/22 07:50 BP 120/78 11/05/22 07:26 Pulse Ox 99 11/05/22 07:26 O2 Del Method 11/05/22 07:26 O2 Flow Rate 2.5 11/05/22 07:26 FiO2 45 10/29/22 04:00 BMI result Body Mass Index 19.5 Const: Other: Gen:? Awake alert ,frail, in no acut e distress . HEENT : sclera anicteric , moist mucus memb ranes, pallor Neck : supple Lungs:? b ilateral expirator y wheeze,? no use of accessory muscl es. Heart: regular rate and rhythm, no murmurs Abd: so ft, non-tender, no n-distended Ext: n o edema, right hip yomi in place Skin: warm/well-pe rfused , petechial rash face, neck a nd arms. Neuro: al ert and oriented x 3, no focal findin gs Psych: appropri ate affect Objective Data Active Medications Albuterol/Ipratropium (Albuterol/Iprat 2.5/0.5mg 3 Ml Ampul.Neb) 3 ml INHALE RQ4H WHILE AWAKE [facility] Last Admin: 11/05/22 11:42 Dose: Not Given Documented By: KATHY Non-Admin Reason: pt unavail Ascorbic Acid (Ascorbic Acid 250 Mg Tablet) 250 mg PO DAILY [facility] Last Admin: 11/05/22 10:16 Dose: 250 mg Documented By: JOSE FRANCISCO Clonazepam (Clonazepam 0.5 Mg Tablet) 0.5 mg PO TID [facility] Last Admin: 11/05/22 10:16 Dose: 0.5 mg Documented By: JOSE FRANCISCO Cyanocobalamin (Cyanocobalamin (Vitamin B-12) 500 Mcg Tablet) 500 mcg PO DAILY [facility] Last Admin: 11/05/22 10:16 Dose: 500 mcg Documented By: JOSE FRANCISCO Fluconazole (Fluconazole 100 Mg Tablet) 100 mg PO DAILY [facility] Last Admin: 11/05/22 10:15 Dose: 100 mg Documented By: JOSE FRANCISCO Fluoxetine HCl (Fluoxetine Hcl 20 Mg Capsule) 20 mg PO DAILY [facility] Last Admin: 11/05/22 10:15 Dose: 20 mg Documented By: JOSE FRANCISCO Fluticasone/Vilanterol (Fluticasone/Vilanterol 100/25 Blst.W.Dev) 1 puff INHALE RDAILY [facility] Last Admin: 11/05/22 07:52 Dose: Not Given Documented By: KATHY Non-Admin Reason: Med Not Available Guaifenesin/Dextromethorphan (Guaifenesin Dm 100/10/5 Ml 5 Ml Syrup) 10 ml PO TID [facility] Last Admin: 11/05/22 10:16 Dose: 10 ml Documented By: JOSE FRANCISCO Hydromorphone HCl (Hydromorphone Hcl 0.5 Mg/0.5 Ml Syringe) 0.5 mg IVPUSH Q4H PRN; Protocol PRN Reason: Pain, Severe (Pain Scale 7-10) Lamotrigine (Lamotrigine 25 Mg Tablet) 150 mg PO BID [facility] Last Admin: 11/05/22 10:15 Dose: 150 mg Documented By: JOSE FRANCISCO Methylprednisolone Sodium Succinate (Methylprednisolone Sod Succ 40 Mg/Ml Vial) 40 mg IVPUSH Q12H [facility] Last Admin: 11/05/22 10:15 Dose: 40 mg Documented By: JOSE FRANCISCO Midodrine (Midodrine Hcl 5 Mg Tablet) 5 mg PO TID [facility] Last Admin: 11/05/22 10:16 Dose: 5 mg Documented By: JOSE FRANCISCO Omeprazole (Omeprazole 40 Mg Capsule.Dr) 40 mg PO DAILY [facility] Last Admin: 11/05/22 10:22 Dose: Not Given Documented By: JOSE FRANCISCO Non-Admin Reason: unable to crush Ondansetron HCl (Ondansetron Hcl 4 Mg/2 Ml Vial) 4 mg IVPUSH Q6H PRN PRN Reason: Nausea Last Admin: 11/04/22 18:28 Dose: 4 mg Documented By: MACIEJ Thiamine HCl (Thiamine Hcl 100 Mg Tablet) 100 mg PO DAILY [facility] Last Admin: 11/05/22 10:15 Dose: 100 mg Documented By: JOSE FRANCISCO Labs CBC & Chem 7: 11/02/22 06:51 11/02/22 06:51 Assessment and Plan (1) Right heart failure: Status: Acute (2) Acute respiratory failure with hypoxia: Status: Acute Plan 51yo F with anxiety, bipolar disorder, asthma, gastric bypass surgery, par oxysmal AF, chronic hypotension on midodrine, migraines, PTSD, and recurrent UTIs thought due to nephrolithiasis admitted to ICU 10/19/22 with septic shock with UTI/bacteremia from obstructing R ureteral stone with hydronephrosis started on norepi, underwent cystoscopy + R ureteral stent in [place] 10/19 blood and urine cultures grew Klebsiella sensitive to levofloxacin ICU course complicated by precipitous thrombocytopenia due to sepsis, then hypoxic respiratory failure due to cor pulmonale and pneumonia was on HFNC + NRB, then CPAP aggressively diuresed with furosemide found to have funguria question of secretory diarrhea treated with cholestyramine + octreotide now off levofloxacin + norepi stepped down to [facility] 10/30/22 # acute hypoxic respiratory failure - due to pulmonary edema/ARDS not on home oxygen currently on 3 L was gradually wean keep finger oximetry 94 # acute asthma exacerbation with underlying moderate persistent asthma Feels better this morning continue schedule updraft treatment, change IV steroids to by mouth, chest x-ray showed diffuse bilateral multi lobar airspace disease unchanged from prior imaging study continue oxygen support as above, cont. cough medication # macrocytic anemia - status post 2 units of packed RBC hematocrit improved from 21.3-35.4, normal B12 and folate, Seen by Dr. Calvo since there is no evidence of active bleeding no urgent endo scopy is warranted, he recommend to give IV iron if noted to have iron deficiency but patient iron studies are not compatible with iron deficiency anemia. Likely anemia is due to acute illness, and positive heme-positive stool likely due to gastritis, neoplasm and angiodysplasia of the GI tract are also possibilities as well, recommend outpatient GI follow-up # severe R-sided HF - no PE; likely acute cor pulmonale due to ARDS from urosepsis. Appear euvolemic, seen by Cardiology, Limited TTE showed normal right ventricular cavity size and systolic function, suggestive of improved right ventricular size and function # chronic hypotension - continue midodrine 5 mg t.i.d. # obstructive uropathy due to R ureterolithiasis - s/p ureteral stent 10/19, seen by his Dr. Gomez he recommend stent removal and lithotripsy , sent message to Dr. Gomez patient respiratory status is stable , so procedure can be scheduled # urosepsis with Klebsiella bacteremia - s/p levofloxacin course # recent right hip surgery, requested Ortho for removal of yomi # hx paroxysmal atrial fibrillation - was on rivaroxaban as outpt but [id number] is 0 and as such does not need it. # candiduria - fluconazole PO, d#05/02 # ELYSE - resolved, suspect was due to prerenal ELYSE/septic ATN # hyperbili - due to congestive hepatopathy, resolved # hypoK - repleted # hyperNa - resolved # hypoPO4 - replete with KPhos, repeat phosphorous 2.6 # metabolic alkalosis - resolved # diarrhea - trial off cholestyarmine + octreotide, stool studies negative, patient noted to have intermittent diarrhea C diff is negative will use as needed Imodium # bipolar disorder - continue clonazepam, fluoxetine, and lamotrigine # VTE ppx: SCDs # dispo: STR In my clinical judgment, the patient requires continued inpatient hospitalization for the following reasons: hypoxia, and follow-up right-sided heart failure and need for urological procedure Time Spent With Patient Time: Total time managing care of this patient today ____ minutes. Quality Stroke Does the patient have a stroke diagnosis?: No VTE Prior VTE?: No VTE Risk Level:: Medical - moderate - high VTE Device Contraindication: N/A - Device Ordered VTE Drug Contraindication: N/A - Med Ordered
--- NOTE | 2022-11-05 13:25 | MHC.CM.PN ---
A bed offer has been received from [facility] in [place]. The patient is very happy to receive a bed offer. Patient is ready to discharge once removes stent, and performs Lithotripsy. Patient will transport via S at discharge.
--- NOTE | 2022-11-05 13:40 | MHC.SL.SWA ---
Speech Pathologist Impression: Oral phase dysphagia Risk of Aspiration Due to: Lethargy Medically Fragile Weak Cough Weak Voice Dysphasia Diet Status: No Change Liquid Consistency and Strategies for Safe Swallow: Liquid Intake Recommendation: Thin Liquid Intake Strategies: Small Sips Solid Food Consistency: Dietary Recommendations: Regular Additional Modifications to Solid Foods: Pt is tolerating REGULAR diet with THIN liquids, although she continues to eat only small amounts at any meal. Patient demonstrated that she needs some assistance and supervision with meal, particularly with making sure all items are accessible and that patient is progressing with meal. Encourage patient to take some items off tray to be eaten at a later time if she eats only small amounts (patient would benefit from smaller more frequent meals to encourage PO intake). Oral Medication Intake: Crushed with Puree Please contact the pharmacy regarding appropriate crushable or liquid drug formulations that are available whenever modified delivery is recommended. Compensatory Strategies and Precautions to be Taken for Safe Swallow: Sitting Upright (90 deg) Small Bites and Sips Alternate Liquids/Solids Supervision While Eating and Drinking for Safe Swallow: Intermittent Supervision Recommendation for Speech: 1 f/u Rad Technologist Clinican/Clinical Fellow: Yes: Tom Juarez Supervisory Statement: I have reviewed and agree with the student/clinical fellow's documentation: Yes Speech Language Pathologist: Anastasia Harrell M.A., CCC-FURNACE CLEANER
[2022-11-06] VITALS (10 sets, daily range): BP systolic 106–125; BP diastolic 60–87; PULSE 62–84; RESP 14–20; TEMP 36.6–37.3; O2SAT 92–97; BMI 19.5
[2022-11-06] MEDS: Albuterol/Iprat 2.5/0.5MG 3 ML AMPUL.NEB INHALE ×4 (09:28→19:55)
[2022-11-06] MEDS: FLUoxetine HCl 20 MG CAPSULE PO (09:36)
[2022-11-06] MEDS: lamoTRIgine 25 MG TABLET 150 MG PO ×2 (09:36→19:59)
[2022-11-06] MEDS: predniSONE 20 MG TABLET PO (09:36)
[2022-11-06] MEDS: Omeprazole 40 MG CAPSULE.DR PO (09:37)
[2022-11-06] MEDS: clonazePAM 0.5 MG TABLET PO ×3 (09:37→19:59)
[2022-11-06] MEDS: guaiFENesin DM 100/10/5 ML 5 ML SYRUP 10 ML PO ×3 (09:37→20:00)
[2022-11-06] MEDS: Cyanocobalamin (Vitamin B-12) 500 MCG TABLET PO (09:37)
[2022-11-06] MEDS: Thiamine HCL 100 MG TABLET PO (09:37)
[2022-11-06] MEDS: Ascorbic Acid 250 MG TABLET PO (09:37)
[2022-11-06] MEDS: Fluconazole 100 MG TABLET PO (09:37)
[2022-11-06] MEDS: Midodrine HCl 5 MG TABLET PO ×3 (09:37→19:59)
[2022-11-06] MEDS: Fluticasone/Vilanterol 100/25 BLST.W.DEV 1 PUFF INHALE (12:26)
--- NOTE | 2022-11-06 13:36 | P.PNIM_ITS ---
Subjective Subjective Date of Service: 11/06/22 Interval History: Feeling significantly better this morning, finger oximetry 97% on room air is still complaining of wheeze and shortness of breath, denies chest pain, no fevers no chills, tolerating diet no nausea no vomiting no abdominal pain no urinary symptoms no lightheadedness or dizziness. Review of Systems Review of Systems: Yes all other systems are reviewed and are negative Physical Exam Vital Signs: Vital Signs: Last Vital Signs Temp 98.0 F 11/06/22 11:42 Pulse 78 11/06/22 12:29 Resp 17 11/06/22 12:29 BP 125/79 11/06/22 11:42 Pulse Ox 97 11/06/22 11:42 O2 Del Method 11/06/22 11:42 O2 Flow Rate 2.5 11/05/22 07:26 FiO2 45 10/29/22 04:00 BMI result Body Mass Index 19.5 Const: Other: Gen:? Awake alert,frail, in no acute distress . HEENT: sclera anicteric, moist mucus membranes, pallor Neck: supple Lungs:? scattered expiratory wheeze,? no useof accessory muscles. Heart: regular?rate and rhythm,no murmurs Abd: soft, non-tender, non-distended Ext: no edema, Skin: warm/well-perfused , petechial?rash face, neck and arms. Neuro: alert and oriented x3, no focal findings Psych: appropriate affect Objective Data Active Medications Albuterol/Ipratropium (Albuterol/Iprat 2.5/0.5mg 3 Ml Ampul.Neb) 3 ml INHALE RQ4H WHILE AWAKE [facility] Last Admin: 11/06/22 09:28 Dose: 3 ml Documented By: CELINE Ascorbic Acid (Ascorbic Acid 250 Mg Tablet) 250 mg PO DAILY [facility] Last Admin: 11/06/22 09:37 Dose: 250 mg Documented By: UMA Clonazepam (Clonazepam 0.5 Mg Tablet) 0.5 mg PO TID [facility] Last Admin: 11/06/22 09:37 Dose: 0.5 mg Documented By: UMA Cyanocobalamin (Cyanocobalamin (Vitamin B-12) 500 Mcg Tablet) 500 mcg PO DAILY [facility] Last Admin: 11/06/22 09:37 Dose: 500 mcg Documented By: UMA Fluconazole (Fluconazole 100 Mg Tablet) 100 mg PO DAILY [facility] Last Admin: 11/06/22 09:37 Dose: 100 mg Documented By: UMA Fluoxetine HCl (Fluoxetine Hcl 20 Mg Capsule) 20 mg PO DAILY [facility] Last Admin: 11/06/22 09:36 Dose: 20 mg Documented By: UMA Fluticasone/Vilanterol (Fluticasone/Vilanterol 100/25 Blst.W.Dev) 1 puff INHALE RDAILY [facility] Last Admin: 11/06/22 12:26 Dose: 1 puff Documented By: JIGNESH Guaifenesin/Dextromethorphan (Guaifenesin Dm 100/10/5 Ml 5 Ml Syrup) 10 ml PO TID [facility] Last Admin: 11/06/22 09:37 Dose: 10 ml Documented By: UMA Hydromorphone HCl (Hydromorphone Hcl 0.5 Mg/0.5 Ml Syringe) 0.5 mg IVPUSH Q4H PRN; Protocol PRN Reason: Pain, Severe (Pain Scale 7-10) Lamotrigine (Lamotrigine 25 Mg Tablet) 150 mg PO BID [facility] Last Admin: 11/06/22 09:36 Dose: 150 mg Documented By: UMA Midodrine (Midodrine Hcl 5 Mg Tablet) 5 mg PO TID [facility] Last Admin: 11/06/22 09:37 Dose: 5 mg Documented By: UMA Omeprazole (Omeprazole 40 Mg Capsule.Dr) 40 mg PO DAILY [facility] Last Admin: 11/06/22 09:37 Dose: 40 mg Documented By: UMA Ondansetron HCl (Ondansetron Hcl 4 Mg/2 Ml Vial) 4 mg IVPUSH Q6H PRN PRN Reason: Nausea Last Admin: 11/04/22 18:28 Dose: 4 mg Documented By: MACIEJ Prednisone (Prednisone 20 Mg Tablet) 20 mg PO DAILY [facility] Last Admin: 11/06/22 09:36 Dose: 20 mg Documented By: UMA Thiamine HCl (Thiamine Hcl 100 Mg Tablet) 100 mg PO DAILY [facility] Last Admin: 11/06/22 09:37 Dose: 100 mg Documented By: UMA Labs CBC & Chem 7: 11/02/22 06:51 11/02/22 06:51 Assessment and Plan (1) Right heart failure: Status: Acute (2) Acute respiratory failure with hypoxia: Status: Acute Plan 51yo F with anxiety, bipolar disorder, asthma, gastric bypass surgery, paroxysmal AF, chronic hypotension on midodrine, migraines, PTSD, and recurrent UTIs thought due to nephrolithiasis admitted to ICU 10/19/22 with septic shock with UTI/bacteremia from obstructing R ureteral stone with hydronephrosis started on norepi, underwent cystoscopy + R ureteral stent in [place] 10/19 blood and urine cultures grew Klebsiella sensitive to levofloxacin ICU course complicated by precipitous thrombocytopenia due to sepsis, then hypoxic respiratory failure due to cor pulmonale and pneumonia was on HFNC + NRB, then CPAP aggressively diuresed with furosemide found to have funguria question of secretory diarrhea treated with cholestyramine + octreotide now off levofloxacin + norepi stepped down to [facility] 10/30/22 # acute hypoxic respiratory failure - resolved mcghee due to pulmonary edema/ARDS now on room air finger oximetry 94% # acute asthma exacerbation with underlying moderate persistent asthma Feels better this morning continue schedule updraft treatment, by mouth prednisone, chest x-ray showed diffuse bilateral multi lobar airspace disease unchanged from prior imaging study continue cough medication # macrocytic anemia - status post 2 units of packed RBC hematocrit improved from 21.3-35.4, normal B12 and folate, Seen by Dr. Calvo since there is no evidence of active bleeding no urgent endoscopy is warranted, he recommend to give IV iron if noted to have iron deficiency but patient iron studies are not compatible with iron deficiency anemia. Likely anemia is due to acute illness, and positive heme-positive stool likely due to gastritis, neoplasm and angiodysplasia of the GI tract are also possibilities as well, recommend outpatient GI follow-up # severe R-sided HF - no PE; likely acute cor pulmonale due to ARDS from urosepsis. Appear euvolemic, seen by Cardiology, Limited TTE showed normal right ventricular cavity size and systolic function, suggestive of improved right ventricular size and function # chronic hypotension - continue midodrine 5 mg t.i.d. # obstructive uropathy due to R ureterolithiasis - s/p ureteral stent 10/19, seen by his Dr. Gomez he recommend stent removal and lithotripsy , sent message to Dr. Gomez patient respiratory status is stable , procedures scheduled for tomorrow # urosepsis with Klebsiella bacteremia - s/p levofloxacin course # recent right hip surgery, requested Ortho for removal of yomi # hx paroxysmal atrial fibrillation - was on rivaroxaban as outpt but [id number] is 0 and as such does not need it. # candiduria - fluconazole PO, d#05/02 # ELYSE - resolved, suspect was due to prerenal ELYSE/septic ATN # hyperbili - due to congestive hepatopathy, resolved # hypoK - repleted # hyperNa - resolved # hypoPO4 - replete with KPhos, repeat phosphorous 2.6 # metabolic alkalosis - resolved # diarrhea - stool studies negative, patient noted to have intermittent diarrhea C diff is negative will use as needed Imodium # bipolar disorder - continue clonazepam, fluoxetine, and lamotrigine # VTE ppx: SCDs # dispo: STR In my clinical judgment, the patient requires continued inpatient hospitalization for the following reasons: need for urological procedure Time Spent With Patient Time: Total time managing care of this patient today ____ minutes. Quality Stroke Does the patient have a stroke diagnosis?: No VTE Prior VTE?: No VTE Risk Level:: Medical - moderate - high VTE Device Contraindication: N/A - Device Ordered VTE Drug Contraindication: N/A - Med Ordered
--- NOTE | 2022-11-06 17:01 | MHC.SL.SWA ---
Speech Pathologist Impression: Risk of Aspiration Due to: Lethargy Medically Fragile Weak Cough Weak Voice Dysphasia Diet Status: Continue REGULAR diet with THIN liquids, although she continues to eat only small amounts at any meal. Patient demonstrated that she needs some assistance and supervision with meal, particularly with making sure all items are accessible and that patient is progressing with meal. Encourage patient to take some items off tray to be eaten at a later time if she eats only small amounts (patient would benefit from smaller more frequent meals to encourage PO intake). Liquid Consistency and Strategies for Safe Swallow: Liquid Intake Recommendation: Thin Liquid Intake Strategies: Small Sips Solid Food Consistency: Dietary Recommendations: Regular Additional Modifications to Solid Foods: Patient will need assistance with cutting up food into manageable, bite size pieces, and with opening and making accessible all items on tray. Oral Medication Intake: Crushed with Puree Please contact the pharmacy regarding appropriate crushable or liquid drug formulations that are available whenever modified delivery is recommended. Compensatory Strategies and Precautions to be Taken for Safe Swallow: Sitting Upright (90 deg) Small Bites and Sips Alternate Liquids/Solids Supervision While Eating and Drinking for Safe Swallow: Intermittent Supervision Foods to Avoid: Swallowing Recommended Treatments: Recommendation for Speech: Outpatient Speech Therapy Inpatient Speech Therapy Comment: Patient was seen after she had finished her lunch meal today. She reported that she ate a few bites of the barbeque pork on her tray, and ate all of the pudding that came with the meal. She additionally reported that she did not drink the nutritional shake because she did not like the flavor, she will only drink vanilla. She did report that she had difficulty cutting up the meat, and that she had no help or assistance during the meal. Patient has been observed tolerating a Regular diet with thin liquid consistencies for several days now, and these consistencies do appear to be appropriate for her and she should continue on them. However, it is still recommended that Patient have some supervisory support at the start of the meal to make sure that food presented is cut up into manageable pieces for her, that liquids are opened and made accessible. Patient has a history of adult failure to thrive and [place] [facility] [place], has demonstrated poor/limited intake of food. Today she stated food just doesn't taste good to me. It continues to be recommended that patient have smaller, more frequent meals throughout the day to encourage PO intake. She will need continued nutritional support and monitoring at the next level of care. Recommend D/C Speech and Language/Dysphagia services at this time, as patient is motorically managing current diet consistencies and on the least restrictive diet. Frequency/Duration: Date Range for Service Req: Timeline to reassess: Eating Disorder Specialist Clinican/Clinical Fellow: No Supervisory Statement: I have reviewed and agree with the student/clinical fellow's documentation: N/A Speech Language Pathologist: Rain Rodriguez M.A., CCC-CLINICAL PHARMACIST
--- NOTE | 2022-11-06 18:44 | PC.NURSE ---
Pt AAOx3, calm and cooperative. Pt OOB with 1 assist and walker to recliner and commode, tolerating well. Continent and has a BM this shift. Pt voiding appropriately with no c/o of distress. Pt maintained on RA and satting appropriately. Currently resting in bed with no acute distress. VSS. Bed alarmed, call oshea within reach. Will continue to monitor.
[2022-11-07] VITALS (13 sets, daily range): BP systolic 93–131; BP diastolic 62–82; PULSE 51–98; RESP 13–20; TEMP 36–37.4; O2SAT 90–100; BMI 19.3
[2022-11-07] MEDS: Fluticasone/Vilanterol 100/25 BLST.W.DEV 1 PUFF INHALE (07:53)
[2022-11-07] MEDS: Albuterol/Iprat 2.5/0.5MG 3 ML AMPUL.NEB INHALE ×2 (07:53→11:38)
[2022-11-07] MEDS: FLUoxetine HCl 20 MG CAPSULE PO (08:52)
[2022-11-07] MEDS: Omeprazole 40 MG CAPSULE.DR PO (08:52)
[2022-11-07] MEDS: Fluconazole 100 MG TABLET PO (08:52)
[2022-11-07] MEDS: Ascorbic Acid 250 MG TABLET PO (08:52)
[2022-11-07] MEDS: Cyanocobalamin (Vitamin B-12) 500 MCG TABLET PO (08:52)
[2022-11-07] MEDS: Thiamine HCL 100 MG TABLET PO (08:52)
[2022-11-07] MEDS: guaiFENesin DM 100/10/5 ML 5 ML SYRUP 10 ML PO ×2 (08:52→20:08)
[2022-11-07] MEDS: lamoTRIgine 25 MG TABLET 150 MG PO ×2 (08:52→20:08)
[2022-11-07] MEDS: Midodrine HCl 5 MG TABLET PO ×2 (08:52→20:08)
[2022-11-07] MEDS: clonazePAM 0.5 MG TABLET PO ×2 (08:52→20:08)
[2022-11-07] MEDS: predniSONE 20 MG TABLET PO (09:00)
--- NOTE | 2022-11-07 11:23 | MHC.CM.PN ---
Per ROUNDS discussion, Patient is having a Cystoscopy today at 4PM and not yet medically cleared for dc. CM has asked [facility] to initiate insurance auth with [facility] for anticipated dc tomorrow.CM will follow.
--- NOTE | 2022-11-07 12:37 | HO.PM.IMPN ---
Subjective Subjective Date of Service: 11/07/22 Interval History: feeling better this morning no shortness of breath feeling hungry eating breakfast, no nausea, no vomiting, no abdominal pain, no diarrhea, no other acute issues overnight finger oximetry stable on room air. Review of Systems Review of Systems: Yes all other systems are reviewed and are negative Physical Exam Vital Signs: Vital Signs: Last Vital Signs Temp 98.0 F 11/07/22 11:03 Pulse 73 11/07/22 11:41 Resp 20 11/07/22 11:41 BP 93/63 11/07/22 11:03 Pulse Ox 94 11/07/22 11:03 O2 Del Method 11/07/22 11:03 O2 Flow Rate 2.5 11/05/22 07:26 FiO2 45 10/29/22 04:00 BMI result Body Mass Index 19.3 Const: Other: Gen:? Awake alert,frail, in no acute distress . HEENT: sclera anicteric, moist mucus membranes, pallor Neck: supple Lungs:? clear to auscultation,no use of accessory muscles. Heart: regular?rate and rhythm,no murmurs Abd: soft, non-tender, non-distended bowel sounds audible Ext: no edema, Skin: warm/well-perfused , petechial?rash face, neck and arms. Neuro: alert and oriented x3, no focal findings Psych: appropriate affect Objective Data Active Medications Albuterol/Ipratropium (Albuterol/Iprat 2.5/0.5mg 3 Ml Ampul.Neb) 3 ml INHALE RQ4H WHILE AWAKE [facility] Last Admin: 11/07/22 11:38 Dose: 3 ml Documented By: CELINE Ascorbic Acid (Ascorbic Acid 250 Mg Tablet) 250 mg PO DAILY [facility] Last Admin: 11/07/22 08:52 Dose: 250 mg Documented By: UMA Clonazepam (Clonazepam 0.5 Mg Tablet) 0.5 mg PO TID [facility] Last Admin: 11/07/22 08:52 Dose: 0.5 mg Documented By: UMA Cyanocobalamin (Cyanocobalamin (Vitamin B-12) 500 Mcg Tablet) 500 mcg PO DAILY [facility] Last Admin: 11/07/22 08:52 Dose: 500 mcg Documented By: UMA Fluconazole (Fluconazole 100 Mg Tablet) 100 mg PO DAILY [facility] Last Admin: 11/07/22 08:52 Dose: 100 mg Documented By: UMA Fluoxetine HCl (Fluoxetine Hcl 20 Mg Capsule) 20 mg PO DAILY [facility] Last Admin: 11/07/22 08:52 Dose: 20 mg Documented By: UMA Fluticasone/Vilanterol (Fluticasone/Vilanterol 100/25 Blst.W.Dev) 1 puff INHALE RDAILY [facility] Last Admin: 11/07/22 07:53 Dose: 1 puff Documented By: BRESNEHAL Guaifenesin/Dextromethorphan (Guaifenesin Dm 100/10/5 Ml 5 Ml Syrup) 10 ml PO TID [facility] Last Admin: 11/07/22 08:52 Dose: 10 ml Documented By: UMA Hydromorphone HCl (Hydromorphone Hcl 0.5 Mg/0.5 Ml Syringe) 0.5 mg IVPUSH Q4H PRN; Protocol PRN Reason: Pain, Severe (Pain Scale 7-10) Lamotrigine (Lamotrigine 25 Mg Tablet) 150 mg PO BID [facility] Last Admin: 11/07/22 08:52 Dose: 150 mg Documented By: UMA Midodrine (Midodrine Hcl 5 Mg Tablet) 5 mg PO TID [facility] Last Admin: 11/07/22 08:52 Dose: 5 mg Documented By: UMA Omeprazole (Omeprazole 40 Mg Capsule.Dr) 40 mg PO DAILY [facility] Last Admin: 11/07/22 08:52 Dose: 40 mg Documented By: UMA Ondansetron HCl (Ondansetron Hcl 4 Mg/2 Ml Vial) 4 mg IVPUSH Q6H PRN PRN Reason: Nausea Last Admin: 11/04/22 18:28 Dose: 4 mg Documented By: MACIEJ Prednisone (Prednisone 20 Mg Tablet) 20 mg PO DAILY [facility] Last Admin: 11/07/22 09:00 Dose: 20 mg Documented By: UMA Thiamine HCl (Thiamine Hcl 100 Mg Tablet) 100 mg PO DAILY [facility] Last Admin: 11/07/22 08:52 Dose: 100 mg Documented By: UMA Labs CBC & Chem 7: 11/02/22 06:51 12/11/22 06:51 Assessment and Plan (1) Right heart failure: Status: Acute (2) Acute respiratory failure with hypoxia: Status: Acute Plan 51yo F with anxiety, bipolar disorder, asthma, gastric bypass surgery, paroxysmal AF, chronic hypotension on midodrine, migraines, PTSD, and recurrent UTIs thought due to nephrolithiasis admitted to ICU 10/19/22 with septic shock with UTI/bacteremia from obstructing R ureteral stone with hydronephrosis started on norepi, underwent cystoscopy + R ureteral stent in OR 10/19 blood and urine cultures grew Klebsiella sensitive to levofloxacin ICU course complicated by precipitous thrombocytopenia due to sepsis, then hypoxic respiratory failure due to cor pulmonale and pneumonia was on HFNC + NRB, then CPAP aggressively diuresed with furosemide found to have funguria question of secretory diarrhea treated with cholestyramine + octreotide now off levofloxacin + norepi stepped down to [facility] 10/30/22 # acute hypoxic respiratory failure - resolved mcghee due to pulmonary edema/ARDS now on room air finger oximetry 94% # acute asthma exacerbation with underlying moderate persistent asthma Feels better ,continue schedule updraft treatment, po prednisone, chest x-ray showed diffuse bilateral multi lobar airspace disease unchanged from prior imaging study continue cough medication. # macrocytic anemia - status post 2 units of packed RBC hematocrit improved from 21.3 -35.4, normal B12 and folate, Seen by Dr. Calvo since there is no evidence of active bleeding no urgent endoscopy is warranted, he recommend to give IV iron if noted to have iron deficiency but patient iron studies are not compatible with iron deficiency anemia. Likely anemia is due to acute illness, and positive heme-positive stool likely due to gastritis, neoplasm and angiodysplasia of the GI tract are also possibilities as well, recommend outpatient GI follow-up # severe R-sided HF - no PE; likely acute cor pulmonale due to ARDS from urosepsis. Appear euvolemic, seen by Cardiology, Limited TTE showed normal right ventricular cavity size and systolic function, suggestive of improved right ventricular size and function # chronic hypotension - continue midodrine 5 mg t.i.d. # obstructive uropathy due to R ureterolithiasis - s/p ureteral stent 10/19, seen by his Dr. Gomez he recommend stent removal and lithotripsy , scheduled for 16:00 today will make patient NPO, patient had some of her breakfast this morning # urosepsis with Klebsiella bacteremia - s/p levofloxacin course # recent right hip surgery, yomi removed by orthopedic service # hx paroxysmal atrial fibrillation - was on rivaroxaban as outpt but [id number] is 0 and as such does not need it. # candiduria - fluconazole PO, d#06/01 # ELYSE - resolved, suspect was due to prerenal ELYSE/septic ATN # hyperbili - due to congestive hepatopathy, resolved # hypoK - repleted # hyperNa - resolved # hypoPO4 - replete with KPhos, repeat phosphorous 2.6 # metabolic alkalosis - resolved # diarrhea - stool studies negative, patient noted to have intermittent diarrhea C diff is negative will use as needed Imodium # bipolar disorder - continue clonazepam, fluoxetine, and lamotrigine # VTE ppx: SCDs # dispo: STR In my clinical judgment, the patient requires continued inpatient hospitalization for the following reasons: need for urological procedure Time Spent With Patient Time: Total time managing care of this patient today ____ minutes. Quality Stroke Does the patient have a stroke diagnosis?: No VTE Prior VTE?: No VTE Risk Level:: Medical - moderate - high VTE Device Contraindication: N/A - Device Ordered VTE Drug Contraindication: N/A - Med Ordered
--- NOTE | 2022-11-07 13:52 | PC.NURSE ---
Pt was made NPO this AM for possible procedure today per Dr. Austin. Pt did have some of her meal, procedure planned for late afternoon. Pt was informed by this rn and MD .
--- NOTE | 2022-11-07 15:38 | P.CONAN_ITS ---
HPI - Anesthesia Eval Consult details Narrative: right ureter stone PMFSH Active Problems Active Problems: All Active Problems (Updated 11/01/22 @ 10:18 by Santiago Mcintyre MD) Paroxysmal atrial fibrillation (Acute) Enlarged RV (right ventricle) (Acute) Leukocytosis (Acute) Right heart failure (Acute) Pneumonia (Acute) Hyperbilirubinemia (Acute) Acute respiratory failure with hypoxia (Acute) Bacteremia due to Klebsiella pneumoniae (Acute) Dermatitis, unspecified (Acute) Hematuria (Acute) Bipolar 1 disorder (Acute) Afib (Acute) Septic shock (Acute) ELYSE (acute kidney injury) (Acute) Hyponatremia (Acute) Hypokalemia (Acute) Anemia (Acute) Sepsis (Acute) Hypotension (Acute) Urinary tract infection (Acute) Hydronephrosis with renal and ureteral calculus obstruction (Acute) Hypoglycemia (Acute) Past Medical History Medical History Afib Anxiety Arthritis Asthma Bipolar 1 disorder Bronchitis Complications of gastric bypass surgery Hypokalemia Hypotension Leukocytosis Migraines PTSD (post-traumatic stress disorder) Functional capacity: wheelchair bound (baseline) Family History Family history of problems with anesthesia: No Surgical History Surgical History H/O: History of cholecystectomy History of Problems with Anesthesia: No Social History Social History Household Members: None Housing: Apartment Do you presently have visiting nurse or other home services: Yes Alcohol intake: never Patient Tobacco Use Status: Former Tobacco user Quit Date: 2018 Tobacco use type: Cigarette Smoked in Last 30 Days: No Use of substances other than those prescribed or required for medical reasons: No Currently Displaying Signs/Symptoms of Drug Intoxication Withdrawal: No Have you been hit, kicked, punched, or otherwise hurt by someone within the past year? If so, by whom?: No Do you feel safe in your current relationship?: No Current Relationship Is there a partner from a previous relationship who is making you feel unsafe now?: No Are you made to feel afraid or neglected: No Are you DNR?: No Advance Directives: No Advance Directives Information Provided: No Do you have thoughts of harming others: None Do you have a plan to hurt others: No Plan Recently lost weight without trying: Yes How much weight loss: Unsure Eating poorly because of decreased appetite: No Nutrition screen score: 4 Patient : No : No Poor oral hygiene: No Current occupational status: disabled Meds Allergies Allergy/AdvReac Type Severity Reaction Status Date / Time cephalexin Allergy Swelling Verified 02/07/21 18:19 ciprofloxacin [From Cipro] Allergy Swelling Verified 02/07/21 18:19 coconut oil Allergy Swelling Verified 10/19/22 01:50 duloxetine [From Cymbalta] Allergy Swelling Verified 02/07/21 18:19 Penicillins Allergy Swelling Verified 02/07/21 18:19 Active Medications: Current Medications Albuterol/Ipratropium (Albuterol/Iprat 2.5/0.5mg 3 Ml Ampul.Neb) 3 ml INHALE RQ4H WHILE AWAKE [facility] Last Admin: 11/07/22 11:38 Dose: 3 ml Ascorbic Acid (Ascorbic Acid 250 Mg Tablet) 250 mg PO DAILY [facility] Last Admin: 11/07/22 08:52 Dose: 250 mg Clonazepam (Clonazepam 0.5 Mg Tablet) 0.5 mg PO TID [facility] Last Admin: 11/07/22 08:52 Dose: 0.5 mg Cyanocobalamin (Cyanocobalamin (Vitamin B-12) 500 Mcg Tablet) 500 mcg PO DAILY [facility] Last Admin: 11/07/22 08:52 Dose: 500 mcg Fluconazole (Fluconazole 100 Mg Tablet) 100 mg PO DAILY [facility] Last Admin: 11/07/22 08:52 Dose: 100 mg Fluoxetine HCl (Fluoxetine Hcl 20 Mg Capsule) 20 mg PO DAILY [facility] Last Admin: 11/07/22 08:52 Dose: 20 mg Fluticasone/Vilanterol (Fluticasone/Vilanterol 100/25 Blst.W.Dev) 1 puff INHALE RDAILY [facility] Last Admin: 11/07/22 07:53 Dose: 1 puff Guaifenesin/Dextromethorphan (Guaifenesin Dm 100/10/5 Ml 5 Ml Syrup) 10 ml PO TID [facility] Last Admin: 11/07/22 08:52 Dose: 10 ml Hydromorphone HCl (Hydromorphone Hcl 0.5 Mg/0.5 Ml Syringe) 0.5 mg IVPUSH Q4H PRN; Protocol PRN Reason: Pain, Severe (Pain Scale 7-10) Lamotrigine (Lamotrigine 25 Mg Tablet) 150 mg PO BID [facility] Last Admin: 11/07/22 08:52 Dose: 150 mg Midodrine (Midodrine Hcl 5 Mg Tablet) 5 mg PO TID [facility] Last Admin: 11/07/22 08:52 Dose: 5 mg Omeprazole (Omeprazole 40 Mg Capsule.Dr) 40 mg PO DAILY [facility] Last Admin: 11/07/22 08:52 Dose: 40 mg Ondansetron HCl (Ondansetron Hcl 4 Mg/2 Ml Vial) 4 mg IVPUSH Q6H PRN PRN Reason: Nausea Last Admin: 11/04/22 18:28 Dose: 4 mg Prednisone (Prednisone 20 Mg Tablet) 20 mg PO DAILY [facility] Last Admin: 11/07/22 09:00 Dose: 20 mg Thiamine HCl (Thiamine Hcl 100 Mg Tablet) 100 mg PO DAILY [facility] Last Admin: 11/07/22 08:52 Dose: 100 mg Home Medications Medication Instructions Recorded Confirmed Last Taken Type acetaminophen 325 mg tablet 650 mg PO Q6H PRN Pain 10/19/22 10/19/22 Unknown History albuterol sulfate 90 mcg/actuation 2 puff inhalation Q6H PRN Wheezing 10/19/22 10/19/22 Unknown History aerosol inhaler ascorbic acid (vitamin C) 250 mg 250 mg PO DAILY 10/19/22 10/19/22 Unknown History tablet bacillus coagulans-inulin 1 1 cap PO DAILY 10/19/22 10/19/22 Unknown History billion cell-250 mg capsule (Probiotic Formula (inulin)) calcium carbonate 500 mg calcium 1,000 mg PO BID 10/19/22 10/19/22 Unknown History (1,250 mg) chewable tablet cholecalciferol (vitamin D3) 1,250 1,250 mcg PO WE 10/19/22 10/19/22 Unknown History mcg (50,000 unit) tablet clonazepam 1 mg tablet 1 mg PO TID 10/19/22 10/19/22 Unknown History cyanocobalamin (vitamin B-12) 500 500 mcg PO DAILY 10/19/22 10/19/22 Unknown History mcg tablet fluoxetine 20 mg tablet 20 mg PO DAILY 10/19/22 10/19/22 Unknown History fluticasone 500 mcg-salmeterol 50 1 inh inhalation BID 10/19/22 10/19/22 Unknown History mcg/dose blistr powdr for inhalation (Wixela Inhub) fluticasone propionate 50 1 spray intranasal DAILY 10/19/22 10/19/22 Unknown History mcg/actuation nasal spray,suspension lamotrigine 150 mg tablet 150 mg PO BID 10/19/22 10/19/22 Unknown History midodrine 5 mg tablet 5 mg PO TID 10/19/22 10/19/22 Unknown History olanzapine 2.5 mg tablet (Zyprexa) 2.5 mg PO BEDTIME PRN Anxiety 10/19/22 10/19/22 Unknown History omeprazole 40 mg capsule,delayed 40 mg PO DAILY 10/19/22 10/19/22 Unknown History release ondansetron HCl 4 mg tablet 4 mg PO Q8H PRN Nausea 10/19/22 10/19/22 Unknown History risperidone 1 mg tablet (Risperdal) 1 mg PO DAILY 10/19/22 10/19/22 Unknown History risperidone 2 mg tablet 2 mg PO BEDTIME 10/19/22 10/19/22 Unknown History rivaroxaban 20 mg tablet (Xarelto) 20 mg PO DAILY@1700 10/19/22 10/19/22 Unknown History sucralfate 100 mg/mL oral 10 ml PO QID 10/19/22 10/19/22 Unknown History suspension thiamine HCl (vitamin B1) 100 mg 100 mg PO DAILY 10/19/22 10/19/22 Unknown History tablet topiramate 25 mg tablet 25 mg PO DAILY 10/19/22 10/19/22 Unknown History topiramate 25 mg tablet 75 mg PO BEDTIME 10/19/22 10/19/22 Unknown History Exam Exam Date and Time: November 07, 2022 1538 Height,Weight and Vital Signs: Height 4 ft 11 in Weight 43.3 kg Last Vital Signs Temp 98.0 F 11/07/22 11:03 Pulse 73 11/07/22 13:20 Resp 20 11/07/22 11:41 BP 93/63 11/07/22 11:03 Pulse Ox 94 11/07/22 11:03 O2 Del Method 11/07/22 11:03 O2 Flow Rate 2.5 11/05/22 07:26 FiO2 45 10/29/22 04:00 Pertinent Lab Results Pertinent Lab Results: Laboratory Tests 11/10/18/22 10/18/22 18:31 18:31 18:31 WBC 26.8 H RBC 2.24 L D Hgb 7.0 L* D Hct 21.0 L* D MCV 93.8 MCH 31.3 MCHC 33.3 RDW 20.3 H Plt Count 175 D MPV 10.5 Immature Gran % (Auto) Cancelled Neut % (Auto) Cancelled Lymph % (Auto) Cancelled [place] % (Auto) Cancelled Eos % (Auto) Cancelled Baso % (Auto) Cancelled Lymph # (Auto) Cancelled [place] # (Auto) Cancelled Eos # (Auto) Cancelled Baso # (Auto) Cancelled Abs Immat Gran (auto) Cancelled Absolute Neuts (auto) Cancelled Absolute Nucleated RBC 0.020 H Nucleated RBC % (auto) 0.1 Neutrophils % (Manual) 80 H Band Neutrophils % 6 H Lymphocytes % (Manual) 9 L Monocytes % (Manual) 4 Metamyelocytes % 1 Myelocytes % Abs Neuts (Manual) 23.0 H Lymphocytes # (Manual) 2.4 Monocytes # (Manual) 1.1 Metamyelocytes # 0.3 Myelocytes # Nucleated RBCs Smudge Cells PRESENT Toxic Granulation PRESENT Toxic Vacuolation PRESENT Dohle Bodies PRESENT Platelet Estimate SLIGHTLY DECREASED Large Platelets Plt Morphology Comment NORMAL RBC Morphology NOTED Polychromasia 1+ (0-2) Hypochromasia 1+ (5-14) Basophilic Stippling Microcytosis 1+ (5-14) Macrocytosis 1+ (5-14) Spherocytes Target Cells [place] Cells 3+ (>5) Acanthocytes (Spur) Schistocytes 2+ (3-5) Smear Tech's Comments Smear Path Review Absolute Retic Percent Retic Immature Retic Fraction Retic Hgb Equivalent PT INR Fibrinogen VBG pH VBG pCO2 VBG pO2 VBG HCO3 VBG O2 Saturation VBG Base Excess Sodium Potassium Chloride Carbon Dioxide Anion Gap BUN Creatinine Estim Creat Clear Calc Estimated GFR POC Glucose Random Glucose Lactic Acid 3.7 H* Lactic Acid F/U @ 2Hr Lactic Acid F/U @ 4Hr Calcium Phosphorus Magnesium Iron TIBC % Saturation Unsat Iron Binding Ferritin Total Bilirubin Direct Bilirubin AST ALT Alkaline Phosphatase Ammonia Lactate Dehydrogenase Troponin I High Sens < 3.5 B-Natriuretic Peptide Total Protein Albumin Lipase Vitamin B12 Folate Procalcitonin Urine Color Urine Appearance Urine pH Ur Specific Amanda Urine Protein Urine Glucose (UA) Urine Ketones Urine Blood Urine Nitrite Ur Leukocyte Esterase Urine RBC Urine WBC Ur Squamous Epith Cells Urine Bacteria Hyaline Casts Urine Yeast Stool Occult Blood Stool Leukocytes, Qual Stl C. cayetanensis PCR Stool Rotavirus A PCR Stl Adenov F 40 PCR Stool Astrovirus (PCR) Stool Campylobacter PCR Stool Cryptosporidium PCR Stl Sh Tox Pr E STEC PCR Stool E coli O157 PCR Stl Enterotoxigenic E PCR Stool EPEC (PCR) Stool EAEC (PCR) Stl E. histolytica PCR Stool Giardia Lamblia PCR Stl P. shigelloides PCR Stool Salmonella PCR Stool Sapovirus (PCR) Stl Shigella/EIEC PCR St Y.enterocolitica PCR Stool Vibrio (PCR) Stl Vibrio cholerae PCR Stl Norovirus GI/GII PCR Urine Opiates Screen Urine Fentanyl Screen Ur Barbiturates Screen Ur Phencyclidine Scrn Ur Amphetamines Screen U Benzodiazepines Scrn Urine Cocaine Screen U Marijuana (THC) Screen C. difficile Tox B Gene Influenza Type A (PCR) Influenza Type B (PCR) RSV RNA Qual (PCR) SARS-CoV-2 RNA (RT-PCR) Blood Type Antibody Screen Crossmatch 10/18/22 10/18/22 10/18/22 18:31 18:56 18:56 WBC RBC Hgb Hct MCV MCH MCHC RDW Plt Count MPV Immature Gran % (Auto) Neut % (Auto) Lymph % (Auto) [place] % (Auto) Eos % (Auto) Baso % (Auto) Lymph # (Auto) [place] # (Auto) Eos # (Auto) Baso # (Auto) Abs Immat Gran (auto) Absolute Neuts (auto) Absolute Nucleated RBC Nucleated RBC % (auto) Neutrophils % (Manual) Band Neutrophils % Lymphocytes % (Manual) Monocytes % (Manual) Metamyelocytes % Myelocytes % Abs Neuts (Manual) Lymphocytes # (Manual) Monocytes # (Manual) Metamyelocytes # Myelocytes # Nucleated RBCs Smudge Cells Toxic Granulation Toxic Vacuolation Dohle Bodies Platelet Estimate Large Platelets Plt Morphology Comment RBC Morphology Polychromasia Hypochromasia Basophilic Stippling Microcytosis Macrocytosis Spherocytes Target Cells Tenisha Cells Acanthocytes (Spur) Schistocytes Smear Tech's Comments Smear Path Review Absolute Retic Percent Retic Immature Retic Fraction Retic Hgb Equivalent PT INR Fibrinogen VBG pH VBG pCO2 VBG pO2 VBG HCO3 VBG O2 Saturation VBG Base Excess Sodium Potassium Chloride Carbon Dioxide Anion Gap BUN Creatinine Estim Creat Clear Calc Estimated GFR POC Glucose Random Glucose Lactic Acid Lactic Acid F/U @ 2Hr Lactic Acid F/U @ 4Hr Calcium Phosphorus Magnesium Iron TIBC % Saturation Unsat Iron Binding Ferritin Total Bilirubin Direct Bilirubin AST ALT Alkaline Phosphatase Ammonia Lactate Dehydrogenase Troponin I High Sens B-Natriuretic Peptide Total Protein Albumin Lipase Vitamin B12 Folate Procalcitonin Urine Color Dark Yellow Urine Appearance Cloudy Urine pH 5.5 Ur Specific Amanda 1.015 Urine Protein Negative Urine Glucose (UA) Negative Urine Ketones Negative Urine Blood Moderate (2+) H Urine Nitrite Negative Ur Leukocyte Esterase Large (3+) H Urine RBC 6-10 H Urine WBC 21-50 H Ur Squamous Epith Cells 11-20 Urine Bacteria 4+ Hyaline Casts 0-2 Urine Yeast Stool Occult Blood Stool Leukocytes, Qual Stl C. cayetanensis PCR Stool Rotavirus A PCR Stl Adenov F 40/41 PCR Stool Astrovirus (PCR) Stool Campylobacter PCR Stool Cryptosporidium PCR Stl Sh Tox Pr E STEC PCR Stool E coli O157 PCR Stl Enterotoxigenic E PCR Stool EPEC (PCR) Stool EAEC (PCR) Stl E. histolytica PCR Stool Giardia Lamblia PCR Stl P. shigelloides PCR Stool Salmonella PCR Stool Sapovirus (PCR) Stl Shigella/EIEC PCR St Y.enterocolitica PCR Stool Vibrio (PCR) Stl Vibrio cholerae PCR Stl Norovirus GI/GII PCR Urine Opiates Screen Not Detected Urine Fentanyl Screen Not Detected Ur Barbiturates Screen Not Detected Ur Phencyclidine Scrn Not Detected Ur Amphetamines Screen Not Detected U Benzodiazepines Scrn Not Detected Urine Cocaine Screen Not Detected U Marijuana (THC) Screen Not Detected C. difficile Tox B Gene Influenza Type A (PCR) NEGATIVE Influenza Type B (PCR) NEGATIVE RSV RNA Qual (PCR) NEGATIVE SARS-CoV-2 RNA (RT-PCR) NEGATIVE Blood Type Antibody Screen Crossmatch 10/18/22 10/18/22 10/18/22 19:37 19:37 20:51 WBC RBC Hgb Hct MCV MCH MCHC RDW Plt Count MPV Immature Gran % (Auto) Neut % (Auto) Lymph % (Auto) [place] % (Auto) Eos % (Auto) Baso % (Auto) Lymph # (Auto) [place] # (Auto) Eos # (Auto) Baso # (Auto) Abs Immat Gran (auto) Absolute Neuts (auto) Absolute Nucleated RBC Nucleated RBC % (auto) Neutrophils % (Manual) Band Neutrophils % Lymphocytes % (Manual) Monocytes % (Manual) Metamyelocytes % Myelocytes % Abs Neuts (Manual) Lymphocytes # (Manual) Monocytes # (Manual) Metamyelocytes # Myelocytes # Nucleated RBCs Smudge Cells Toxic Granulation Toxic Vacuolation Dohle Bodies Platelet Estimate Large Platelets Plt Morphology Comment RBC Morphology Polychromasia Hypochromasia Basophilic Stippling Microcytosis Macrocytosis Spherocytes Target Cells [place] Cells Acanthocytes (Spur) Schistocytes Smear Tech's Comments Smear Path Review Absolute Retic Percent Retic Immature Retic Fraction Retic Hgb Equivalent PT INR Fibrinogen VBG pH VBG pCO2 VBG pO2 VBG HCO3 VBG O2 Saturation VBG Base Excess Sodium 127 L Potassium 3.2 L Chloride 103 Carbon Dioxide 14 L Anion Gap 13 BUN 41 H Creatinine 1.69 H Estim Creat Clear Calc 19.9 Estimated GFR 32 POC Glucose Random Glucose 84 Lactic Acid Lactic Acid F/U @ 2Hr 3.0 H* Lactic Acid F/U @ 4Hr Calcium 7.2 L D Phosphorus Magnesium 1.7 Iron TIBC % Saturation Unsat Iron Binding Ferritin Total Bilirubin 2.4 H Direct Bilirubin 1.7 H AST 59 H ALT 139 H Alkaline Phosphatase 208 H Ammonia Lactate Dehydrogenase Troponin I High Sens B-Natriuretic Peptide Total Protein 3.5 L Albumin 1.7 L Lipase 5 L Vitamin B12 Folate Procalcitonin Urine Color Urine Appearance Urine pH Ur Specific Amanda Urine Protein Urine Glucose (UA) Urine Ketones Urine Blood Urine Nitrite Ur Leukocyte Esterase Urine RBC Urine WBC Ur Squamous Epith Cells Urine Bacteria Hyaline Casts Urine Yeast Stool Occult Blood Stool Leukocytes, Qual Stl C. cayetanensis PCR Stool Rotavirus A PCR Stl Adenov F 40/41 PCR Stool Astrovirus (PCR) Stool Campylobacter PCR Stool Cryptosporidium PCR Stl Sh Tox Pr E STEC PCR Stool E coli O157 PCR Stl Enterotoxigenic E PCR Stool EPEC (PCR) Stool EAEC (PCR) Stl E. histolytica PCR Stool Giardia Lamblia PCR Stl P. shigelloides PCR Stool Salmonella PCR Stool Sapovirus (PCR) Stl Shigella/EIEC PCR St Y.enterocolitica PCR Stool Vibrio (PCR) Stl Vibrio cholerae PCR Stl Norovirus GI/GII PCR Urine Opiates Screen Urine Fentanyl Screen Ur Barbiturates Screen Ur Phencyclidine Scrn Ur Amphetamines Screen U Benzodiazepines Scrn Urine Cocaine Screen U Marijuana (THC) Screen C. difficile Tox B Gene Influenza Type A (PCR) Influenza Type B (PCR) RSV RNA Qual (PCR) SARS-CoV-2 RNA (RT-PCR) Blood Type O Positive Antibody Screen NEGATIVE Crossmatch See Detail 10/18/22 10/19/22 10/19/22 21:35 00:34 00:46 WBC RBC Hgb Hct MCV MCH MCHC RDW Plt Count MPV Immature Gran % (Auto) Neut % (Auto) Lymph % (Auto) [place] % (Auto) Eos % (Auto) Baso % (Auto) Lymph # (Auto) [place] # (Auto) Eos # (Auto) Baso # (Auto) Abs Immat Gran (auto) Absolute Neuts (auto) Absolute Nucleated RBC Nucleated RBC % (auto) Neutrophils % (Manual) Band Neutrophils % Lymphocytes % (Manual) Monocytes % (Manual) Metamyelocytes % Myelocytes % Abs Neuts (Manual) Lymphocytes # (Manual) Monocytes # (Manual) Metamyelocytes # Myelocytes # Nucleated RBCs Smudge Cells Toxic Granulation Toxic Vacuolation Dohle Bodies Platelet Estimate Large Platelets Plt Morphology Comment RBC Morphology Polychromasia Hypochromasia Basophilic Stippling Microcytosis Macrocytosis Spherocytes Target Cells [place] Cells Acanthocytes (Spur) Schistocytes Smear Tech's Comments Smear Path Review Absolute Retic Percent Retic Immature Retic Fraction Retic Hgb Equivalent PT INR Fibrinogen VBG pH VBG pCO2 VBG pO2 VBG HCO3 VBG O2 Saturation VBG Base Excess Sodium Potassium Chloride Carbon Dioxide Anion Gap BUN Creatinine Estim Creat Clear Calc Estimated GFR POC Glucose 61 Random Glucose Lactic Acid Lactic Acid F/U @ 2Hr Lactic Acid F/U @ 4Hr 2.9 H* Calcium Phosphorus Magnesium Iron TIBC % Saturation Unsat Iron Binding Ferritin Total Bilirubin Direct Bilirubin AST ALT Alkaline Phosphatase Ammonia Lactate Dehydrogenase Troponin I High Sens B-Natriuretic Peptide Total Protein Albumin Lipase Vitamin B12 Folate Procalcitonin Urine Color Urine Appearance Urine pH Ur Specific Amanda Urine Protein Urine Glucose (UA) Urine Ketones Urine Blood Urine Nitrite Ur Leukocyte Esterase Urine RBC Urine WBC Ur Squamous Epith Cells Urine Bacteria Hyaline Casts Urine Yeast Stool Occult Blood POSITIVE Stool Leukocytes, Qual Stl C. cayetanensis PCR Stool Rotavirus A PCR Stl Adenov F 40/ PCR Stool Astrovirus (PCR) Stool Campylobacter PCR Stool Cryptosporidium PCR Stl Sh Tox Pr E STEC PCR Stool E coli O157 PCR Stl Enterotoxigenic E PCR Stool EPEC (PCR) Stool EAEC (PCR) Stl E. histolytica PCR Stool Giardia Lamblia PCR Stl P. shigelloides PCR Stool Salmonella PCR Stool Sapovirus (PCR) Stl Shigella/EIEC PCR St Y.enterocolitica PCR Stool Vibrio (PCR) Stl Vibrio cholerae PCR Stl Norovirus GI/GII PCR Urine Opiates Screen Urine Fentanyl Screen Ur Barbiturates Screen Ur Phencyclidine Scrn Ur Amphetamines Screen U Benzodiazepines Scrn Urine Cocaine Screen U Marijuana (THC) Screen C. difficile Tox B Gene Influenza Type A (PCR) Influenza Type B (PCR) RSV RNA Qual (PCR) SARS-CoV-2 RNA (RT-PCR) Blood Type Antibody Screen Crossmatch 10/19/22 10/19/22 10/19/22 04:42 05:19 05:19 WBC 26.0 H RBC 3.45 L D Hgb 10.6 L D Hct 31.1 L D MCV 90.1 MCH 30.7 MCHC 34.1 RDW 17.4 H Plt Count 120 L D MPV 10.3 Immature Gran % (Auto) Cancelled Neut % (Auto) Cancelled Lymph % (Auto) Cancelled [place] % (Auto) Cancelled Eos % (Auto) Cancelled Baso % (Auto) Cancelled Lymph # (Auto) Cancelled [place] # (Auto) Cancelled Eos # (Auto) Cancelled Baso # (Auto) Cancelled Abs Immat Gran (auto) Cancelled Absolute Neuts (auto) Cancelled Absolute Nucleated RBC 0.020 H Nucleated RBC % (auto) 0.1 Neutrophils % (Manual) 93 H Band Neutrophils % 5 Lymphocytes % (Manual) 1 L Monocytes % (Manual) 1 L Metamyelocytes % Myelocytes % Abs Neuts (Manual) 25.5 H Lymphocytes # (Manual) 0.3 L Monocytes # (Manual) 0.3 Metamyelocytes # Myelocytes # Nucleated RBCs Smudge Cells Toxic Granulation Toxic Vacuolation PRESENT Dohle Bodies PRESENT Platelet Estimate NORMAL Large Platelets Plt Morphology Comment NORMAL RBC Morphology NOTED Polychromasia 1+ (0-2) Hypochromasia Basophilic Stippling 1+ (0-2) Microcytosis Macrocytosis Spherocytes 1+ (0-2) Target Cells [place] Cells 2+ (3-5) Acanthocytes (Spur) 2+ (3-5) Schistocytes 1+ (0-2) Smear Tech's Comments Smear Path Review Absolute Retic Percent Retic Immature Retic Fraction Retic Hgb Equivalent PT INR Fibrinogen VBG pH VBG pCO2 VBG pO2 VBG HCO3 VBG O2 Saturation VBG Base Excess Sodium 135 Potassium 2.6 L Chloride 109 H Carbon Dioxide 14 L Anion Gap 15 BUN 37 H Creatinine 1.34 Estim Creat Clear Calc 37.0 Estimated GFR 42 POC Glucose 77 Random Glucose 71 Lactic Acid Lactic Acid F/U @ 2Hr Lactic Acid F/U @ 4Hr Calcium 7.3 L Phosphorus 3.2 Magnesium 1.5 L Iron TIBC % Saturation Unsat Iron Binding Ferritin Total Bilirubin Direct Bilirubin AST ALT Alkaline Phosphatase Ammonia Lactate Dehydrogenase Troponin I High Sens B-Natriuretic Peptide Total Protein Albumin 2.2 L Lipase Vitamin B12 Folate Procalcitonin Urine Color Urine Appearance Urine pH Ur Specific Amanda Urine Protein Urine Glucose (UA) Urine Ketones Urine Blood Urine Nitrite Ur Leukocyte Esterase Urine RBC Urine WBC Ur Squamous Epith Cells Urine Bacteria Hyaline Casts Urine Yeast Stool Occult Blood Stool Leukocytes, Qual Stl C. cayetanensis PCR Stool Rotavirus A PCR Stl Adenov F 40/41 PCR Stool Astrovirus (PCR) Stool Campylobacter PCR Stool Cryptosporidium PCR Stl Sh Tox Pr E STEC PCR Stool E coli O157 PCR Stl Enterotoxigenic E PCR Stool EPEC (PCR) Stool EAEC (PCR) Stl E. histolytica PCR Stool Giardia Lamblia PCR Stl P. shigelloides PCR Stool Salmonella PCR Stool Sapovirus (PCR) Stl Shigella/EIEC PCR St Y.enterocolitica PCR Stool Vibrio (PCR) Stl Vibrio cholerae PCR Stl Norovirus GI/GII PCR Urine Opiates Screen Urine Fentanyl Screen Ur Barbiturates Screen Ur Phencyclidine Scrn Ur Amphetamines Screen U Benzodiazepines Scrn Urine Cocaine Screen U Marijuana (THC) Screen C. difficile Tox B Gene Influenza Type A (PCR) Influenza Type B (PCR) RSV RNA Qual (PCR) SARS-CoV-2 RNA (RT-PCR) Blood Type Antibody Screen Crossmatch 10/19/22 10/19/22 10/19/22 13:57 14:30 14:30 WBC 30.8 H* RBC 3.67 L Hgb 11.3 L Hct 33.4 L MCV 91.0 MCH 30.8 MCHC 33.8 RDW 18.1 H Plt Count 77 L D MPV 11.0 Immature Gran % (Auto) Cancelled Neut % (Auto) Cancelled Lymph % (Auto) Cancelled [place] % (Auto) Cancelled Eos % (Auto) Cancelled Baso % (Auto) Cancelled Lymph # (Auto) Cancelled [place] # (Auto) Cancelled Eos # (Auto) Cancelled Baso # (Auto) Cancelled Abs Immat Gran (auto) Cancelled Absolute Neuts (auto) Cancelled Absolute Nucleated RBC 0.030 H Nucleated RBC % (auto) 0.1 Neutrophils % (Manual) 80 H Band Neutrophils % 8 H Lymphocytes % (Manual) 4 L Monocytes % (Manual) 6 Metamyelocytes % 2 Myelocytes % Abs Neuts (Manual) 27.1 H Lymphocytes # (Manual) 1.2 Monocytes # (Manual) 1.8 H Metamyelocytes # 0.6 Myelocytes # Nucleated RBCs Smudge Cells PRESENT Toxic Granulation PRESENT Toxic Vacuolation PRESENT Dohle Bodies Platelet Estimate DECREASED Large Platelets PRESENT Plt Morphology Comment NOTED RBC Morphology NOTED Polychromasia 1+ (0-2) Hypochromasia 1+ (5-14) Basophilic Stippling Microcytosis 1+ (5-14) Macrocytosis 1+ (5-14) Spherocytes Target Cells [place] Cells 1+ (0-2) Acanthocytes (Spur) Schistocytes 1+ (0-2) Smear Tech's Comments Smear Path Review Absolute Retic Percent Retic Immature Retic Fraction Retic Hgb Equivalent PT INR Fibrinogen VBG pH VBG pCO2 VBG pO2 VBG HCO3 VBG O2 Saturation VBG Base Excess Sodium 135 Potassium 3.5 D Chloride 112 H Carbon Dioxide 12 L Anion Gap 15 BUN 34 H Creatinine 1.08 Estim Creat Clear Calc 47.4 Estimated GFR 53 POC Glucose 82 Random Glucose 102 Lactic Acid Lactic Acid F/U @ 2Hr Lactic Acid F/U @ 4Hr Calcium 7.4 L Phosphorus Magnesium Iron TIBC % Saturation Unsat Iron Binding Ferritin Total Bilirubin Direct Bilirubin AST ALT Alkaline Phosphatase Ammonia Lactate Dehydrogenase Troponin I High Sens B-Natriuretic Peptide Total Protein Albumin Lipase Vitamin B12 Folate Procalcitonin Urine Color Urine Appearance Urine pH Ur Specific Amanda Urine Protein Urine Glucose (UA) Urine Ketones Urine Blood Urine Nitrite Ur Leukocyte Esterase Urine RBC Urine WBC Ur Squamous Epith Cells Urine Bacteria Hyaline Casts Urine Yeast Stool Occult Blood Stool Leukocytes, Qual Stl C. cayetanensis PCR Stool Rotavirus A PCR Stl Adenov F 40/ PCR Stool Astrovirus (PCR) Stool Campylobacter PCR Stool Cryptosporidium PCR Stl Sh Tox Pr E STEC PCR Stool E coli O157 PCR Stl Enterotoxigenic E PCR Stool EPEC (PCR) Stool EAEC (PCR) Stl E. histolytica PCR Stool Giardia Lamblia PCR Stl P. shigelloides PCR Stool Salmonella PCR Stool Sapovirus (PCR) Stl Shigella/EIEC PCR St Y.enterocolitica PCR Stool Vibrio (PCR) Stl Vibrio cholerae PCR Stl Norovirus GI/GII PCR Urine Opiates Screen Urine Fentanyl Screen Ur Barbiturates Screen Ur Phencyclidine Scrn Ur Amphetamines Screen U Benzodiazepines Scrn Urine Cocaine Screen U Marijuana (THC) Screen C. difficile Tox B Gene Influenza Type A (PCR) Influenza Type B (PCR) RSV RNA Qual (PCR) SARS-CoV-2 RNA (RT-PCR) Blood Type Antibody Screen Crossmatch 10/19/22 10/19/22 10/19/22 18:11 21:50 21:50 WBC 36.5 H* RBC 3.90 L Hgb 12.0 Hct 35.0 L MCV 89.7 MCH 30.8 MCHC 34.3 RDW 18.4 H Plt Count 65 L MPV 10.4 Immature Gran % (Auto) Cancelled Neut % (Auto) Cancelled Lymph % (Auto) Cancelled [place] % (Auto) Cancelled Eos % (Auto) Cancelled Baso % (Auto) Cancelled Lymph # (Auto) Cancelled [place] # (Auto) Cancelled Eos # (Auto) Cancelled Baso # (Auto) Cancelled Abs Immat Gran (auto) Cancelled Absolute Neuts (auto) Cancelled Absolute Nucleated RBC 0.000 Nucleated RBC % (auto) 0.0 Neutrophils % (Manual) 80 H Band Neutrophils % 6 H Lymphocytes % (Manual) 7 L Monocytes % (Manual) 5 Metamyelocytes % 2 Myelocytes % Abs Neuts (Manual) 31.4 H Lymphocytes # (Manual) 2.6 Monocytes # (Manual) 1.8 H Metamyelocytes # 0.7 Myelocytes # Nucleated RBCs Smudge Cells PRESENT Toxic Granulation PRESENT Toxic Vacuolation Dohle Bodies Platelet Estimate DECREASED Large Platelets PRESENT Plt Morphology Comment NOTED RBC Morphology NOTED Polychromasia 1+ (0-2) Hypochromasia 1+ (5-14) Basophilic Stippling Microcytosis 1+ (5-14) Macrocytosis 1+ (5-14) Spherocytes Target Cells [place] Cells 1+ (0-2) Acanthocytes (Spur) Schistocytes Smear Tech's Comments Smear Path Review Absolute Retic Percent Retic Immature Retic Fraction Retic Hgb Equivalent PT INR Fibrinogen VBG pH VBG pCO2 VBG pO2 VBG HCO3 VBG O2 Saturation VBG Base Excess Sodium Potassium Chloride Carbon Dioxide Anion Gap BUN Creatinine Estim Creat Clear Calc Estimated GFR POC Glucose 116 H Random Glucose Lactic Acid Lactic Acid F/U @ 2Hr Lactic Acid F/U @ 4Hr Calcium Phosphorus 2.7 Magnesium 1.9 Iron TIBC % Saturation Unsat Iron Binding Ferritin Total Bilirubin Direct Bilirubin AST ALT Alkaline Phosphatase Ammonia Lactate Dehydrogenase Troponin I High Sens B-Natriuretic Peptide Total Protein Albumin 2.2 L D Lipase Vitamin B12 Folate Procalcitonin Urine Color Urine Appearance Urine pH Ur Specific Amanda Urine Protein Urine Glucose (UA) Urine Ketones Urine Blood Urine Nitrite Ur Leukocyte Esterase Urine RBC Urine WBC Ur Squamous Epith Cells Urine Bacteria Hyaline Casts Urine Yeast Stool Occult Blood Stool Leukocytes, Qual Stl C. cayetanensis PCR Stool Rotavirus A PCR Stl Adenov F 40/41 PCR Stool Astrovirus (PCR) Stool Campylobacter PCR Stool Cryptosporidium PCR Stl Sh Tox Pr E STEC PCR Stool E coli O157 PCR Stl Enterotoxigenic E PCR Stool EPEC (PCR) Stool EAEC (PCR) Stl E. histolytica PCR Stool Giardia Lamblia PCR Stl P. shigelloides PCR Stool Salmonella PCR Stool Sapovirus (PCR) Stl Shigella/EIEC PCR St Y.enterocolitica PCR Stool Vibrio (PCR) Stl Vibrio cholerae PCR Stl Norovirus GI/GII PCR Urine Opiates Screen Urine Fentanyl Screen Ur Barbiturates Screen Ur Phencyclidine Scrn Ur Amphetamines Screen U Benzodiazepines Scrn Urine Cocaine Screen U Marijuana (THC) Screen C. difficile Tox B Gene Influenza Type A (PCR) Influenza Type B (PCR) RSV RNA Qual (PCR) SARS-CoV-2 RNA (RT-PCR) Blood Type Antibody Screen Crossmatch 10/20/22 10/20/22 10/20/22 00:50 04:55 04:55 WBC 32.8 H* RBC 3.27 L Hgb 10.0 L Hct 29.4 L MCV 89.9 MCH 30.6 MCHC 34.0 RDW 18.3 H Plt Count 48 L D MPV 11.1 Immature Gran % (Auto) Cancelled Neut % (Auto) Cancelled Lymph % (Auto) Cancelled [place] % (Auto) Cancelled Eos % (Auto) Cancelled Baso % (Auto) Cancelled Lymph # (Auto) Cancelled [place] # (Auto) Cancelled Eos # (Auto) Cancelled Baso # (Auto) Cancelled Abs Immat Gran (auto) Cancelled Absolute Neuts (auto) Cancelled Absolute Nucleated RBC 0.000 Nucleated RBC % (auto) 0.0 Neutrophils % (Manual) 85 H Band Neutrophils % 6 H Lymphocytes % (Manual) 7 L Monocytes % (Manual) 2 Metamyelocytes % Myelocytes % Abs Neuts (Manual) 29.8 H Lymphocytes # (Manual) 2.3 Monocytes # (Manual) 0.7 Metamyelocytes # Myelocytes # Nucleated RBCs Smudge Cells Toxic Granulation Toxic Vacuolation PRESENT Dohle Bodies PRESENT Platelet Estimate DECREASED Large Platelets Plt Morphology Comment NORMAL RBC Morphology NOTED Polychromasia 1+ (0-2) Hypochromasia Basophilic Stippling 1+ (0-2) Microcytosis Macrocytosis Spherocytes 1+ (0-2) Target Cells [place] Cells 1+ (0-2) Acanthocytes (Spur) 1+ (0-2) Schistocytes 1+ (0-2) Smear Tech's Comments Smear Path Review Absolute Retic Percent Retic Immature Retic Fraction Retic Hgb Equivalent PT INR Fibrinogen VBG pH VBG pCO2 VBG pO2 VBG HCO3 VBG O2 Saturation VBG Base Excess Sodium 138 Potassium 2.8 L Chloride 110 H Carbon Dioxide 18 L Anion Gap 13 BUN 26 H Creatinine 0.81 Estim Creat Clear Calc 63.2 Estimated GFR > 60 POC Glucose 148 H Random Glucose 105 Lactic Acid Lactic Acid F/U @ 2Hr Lactic Acid F/U @ 4Hr Calcium 8.2 L D Phosphorus 2.2 L Magnesium 1.8 Iron TIBC % Saturation Unsat Iron Binding Ferritin Total Bilirubin 5.3 H Direct Bilirubin AST 21 ALT 71 H Alkaline Phosphatase 190 H Ammonia Lactate Dehydrogenase Troponin I High Sens B-Natriuretic Peptide Total Protein 4.3 L Albumin 2.9 L Lipase Vitamin B12 Folate Procalcitonin Urine Color Urine Appearance Urine pH Ur Specific Amanda Urine Protein Urine Glucose (UA) Urine Ketones Urine Blood Urine Nitrite Ur Leukocyte Esterase Urine RBC Urine WBC Ur Squamous Epith Cells Urine Bacteria Hyaline Casts Urine Yeast Stool Occult Blood Stool Leukocytes, Qual Stl C. cayetanensis PCR Stool Rotavirus A PCR Stl Adenov F 40 PCR Stool Astrovirus (PCR) Stool Campylobacter PCR Stool Cryptosporidium PCR Stl Sh Tox Pr E STEC PCR Stool E coli O157 PCR Stl Enterotoxigenic E PCR Stool EPEC (PCR) Stool EAEC (PCR) Stl E. histolytica PCR Stool Giardia Lamblia PCR Stl P. shigelloides PCR Stool Salmonella PCR Stool Sapovirus (PCR) Stl Shigella/EIEC PCR St Y.enterocolitica PCR Stool Vibrio (PCR) Stl Vibrio cholerae PCR Stl Norovirus GI/GII PCR Urine Opiates Screen Urine Fentanyl Screen Ur Barbiturates Screen Ur Phencyclidine Scrn Ur Amphetamines Screen U Benzodiazepines Scrn Urine Cocaine Screen U Marijuana (THC) Screen C. difficile Tox B Gene Influenza Type A (PCR) Influenza Type B (PCR) RSV RNA Qual (PCR) SARS-CoV-2 RNA (RT-PCR) Blood Type Antibody Screen Crossmatch 10/20/22 10/20/22 10/20/22 08:16 12:12 18:25 WBC RBC Hgb Hct MCV MCH MCHC RDW Plt Count MPV Immature Gran % (Auto) Neut % (Auto) Lymph % (Auto) [place] % (Auto) Eos % (Auto) Baso % (Auto) Lymph # (Auto) [place] # (Auto) Eos # (Auto) Baso # (Auto) Abs Immat Gran (auto) Absolute Neuts (auto) Absolute Nucleated RBC Nucleated RBC % (auto) Neutrophils % (Manual) Band Neutrophils % Lymphocytes % (Manual) Monocytes % (Manual) Metamyelocytes % Myelocytes % Abs Neuts (Manual) Lymphocytes # (Manual) Monocytes # (Manual) Metamyelocytes # Myelocytes # Nucleated RBCs Smudge Cells Toxic Granulation Toxic Vacuolation Dohle Bodies Platelet Estimate Large Platelets Plt Morphology Comment RBC Morphology Polychromasia Hypochromasia Basophilic Stippling Microcytosis Macrocytosis Spherocytes Target Cells [place] Cells Acanthocytes (Spur) Schistocytes Smear Tech's Comments Smear Path Review Absolute Retic Percent Retic Immature Retic Fraction Retic Hgb Equivalent PT INR Fibrinogen 399 VBG pH VBG pCO2 VBG pO2 VBG HCO3 VBG O2 Saturation VBG Base Excess Sodium Potassium Chloride Carbon Dioxide Anion Gap BUN Creatinine Estim Creat Clear Calc Estimated GFR POC Glucose 129 H 107 Random Glucose Lactic Acid Lactic Acid F/U @ 2Hr Lactic Acid F/U @ 4Hr Calcium Phosphorus Magnesium Iron TIBC % Saturation Unsat Iron Binding Ferritin Total Bilirubin Direct Bilirubin AST ALT Alkaline Phosphatase Ammonia Lactate Dehydrogenase Troponin I High Sens B-Natriuretic Peptide Total Protein Albumin Lipase Vitamin B12 Folate Procalcitonin Urine Color Urine Appearance Urine pH Ur Specific Amanda Urine Protein Urine Glucose (UA) Urine Ketones Urine Blood Urine Nitrite Ur Leukocyte Esterase Urine RBC Urine WBC Ur Squamous Epith Cells Urine Bacteria Hyaline Casts Urine Yeast Stool Occult Blood Stool Leukocytes, Qual Stl C. cayetanensis PCR Stool Rotavirus A PCR Stl Adenov F 40/41 PCR Stool Astrovirus (PCR) Stool Campylobacter PCR Stool Cryptosporidium PCR Stl Sh Tox Pr E STEC PCR Stool E coli O157 PCR Stl Enterotoxigenic E PCR Stool EPEC (PCR) Stool EAEC (PCR) Stl E. histolytica PCR Stool Giardia Lamblia PCR Stl P. shigelloides PCR Stool Salmonella PCR Stool Sapovirus (PCR) Stl Shigella/EIEC PCR St Y.enterocolitica PCR Stool Vibrio (PCR) Stl Vibrio cholerae PCR Stl Norovirus GI/GII PCR Urine Opiates Screen Urine Fentanyl Screen Ur Barbiturates Screen Ur Phencyclidine Scrn Ur Amphetamines Screen U Benzodiazepines Scrn Urine Cocaine Screen U Marijuana (THC) Screen C. difficile Tox B Gene Influenza Type A (PCR) Influenza Type B (PCR) RSV RNA Qual (PCR) SARS-CoV-2 RNA (RT-PCR) Blood Type Antibody Screen Crossmatch 10/21/22 10/21/22 10/21/22 04:50 04:50 04:50 WBC 23.8 H RBC 2.94 L Hgb 9.0 L Hct 27.0 L MCV 91.8 MCH 30.6 MCHC 33.3 RDW 18.3 H Plt Count 36 L MPV 11.4 Immature Gran % (Auto) Cancelled Neut % (Auto) Cancelled Lymph % (Auto) Cancelled [place] % (Auto) Cancelled Eos % (Auto) Cancelled Baso % (Auto) Cancelled Lymph # (Auto) Cancelled [place] # (Auto) Cancelled Eos # (Auto) Cancelled Baso # (Auto) Cancelled Abs Immat Gran (auto) Cancelled Absolute Neuts (auto) Cancelled Absolute Nucleated RBC 0.000 Nucleated RBC % (auto) 0.0 Neutrophils % (Manual) 87 H Band Neutrophils % 3 Lymphocytes % (Manual) 10 L Monocytes % (Manual) Metamyelocytes % Myelocytes % Abs Neuts (Manual) 21.4 H Lymphocytes # (Manual) 2.4 Monocytes # (Manual) Metamyelocytes # Myelocytes # Nucleated RBCs Smudge Cells Toxic Granulation PRESENT Toxic Vacuolation PRESENT Dohle Bodies PRESENT Platelet Estimate DECREASED Large Platelets Plt Morphology Comment NORMAL RBC Morphology NOTED Polychromasia 1+ (0-2) Hypochromasia Basophilic Stippling 1+ (0-2) Microcytosis Macrocytosis Spherocytes Target Cells 1+ (5-14) [place] Cells Acanthocytes (Spur) 1+ (0-2) Schistocytes 1+ (0-2) Smear Tech's Comments Smear Path Review Absolute Retic Percent Retic Immature Retic Fraction Retic Hgb Equivalent PT INR Fibrinogen VBG pH VBG pCO2 VBG pO2 VBG HCO3 VBG O2 Saturation VBG Base Excess Sodium 141 Potassium 3.3 Chloride 109 H Carbon Dioxide 20 L Anion Gap 15 BUN 20 H Creatinine 0.74 Estim Creat Clear Calc 68.9 Estimated GFR > 60 POC Glucose Random Glucose 105 Lactic Acid Lactic Acid F/U @ 2Hr Lactic Acid F/U @ 4Hr Calcium 8.8 D Phosphorus 2.3 L Magnesium 1.6 Iron TIBC % Saturation Unsat Iron Binding Ferritin Total Bilirubin Direct Bilirubin AST ALT Alkaline Phosphatase Ammonia Lactate Dehydrogenase Troponin I High Sens B-Natriuretic Peptide 886 H Total Protein Albumin 3.6 Lipase Vitamin B12 Folate Procalcitonin Urine Color Urine Appearance Urine pH Ur Specific Amanda Urine Protein Urine Glucose (UA) Urine Ketones Urine Blood Urine Nitrite Ur Leukocyte Esterase Urine RBC Urine WBC Ur Squamous Epith Cells Urine Bacteria Hyaline Casts Urine Yeast Stool Occult Blood Stool Leukocytes, Qual Stl C. cayetanensis PCR Stool Rotavirus A PCR Stl Adenov F 40/41 PCR Stool Astrovirus (PCR) Stool Campylobacter PCR Stool Cryptosporidium PCR Stl Sh Tox Pr E STEC PCR Stool E coli O157 PCR Stl Enterotoxigenic E PCR Stool EPEC (PCR) Stool EAEC (PCR) Stl E. histolytica PCR Stool Giardia Lamblia PCR Stl P. shigelloides PCR Stool Salmonella PCR Stool Sapovirus (PCR) Stl Shigella/EIEC PCR St Y.enterocolitica PCR Stool Vibrio (PCR) Stl Vibrio cholerae PCR Stl Norovirus GI/GII PCR Urine Opiates Screen Urine Fentanyl Screen Ur Barbiturates Screen Ur Phencyclidine Scrn Ur Amphetamines Screen U Benzodiazepines Scrn Urine Cocaine Screen U Marijuana (THC) Screen C. difficile Tox B Gene Influenza Type A (PCR) Influenza Type B (PCR) RSV RNA Qual (PCR) SARS-CoV-2 RNA (RT-PCR) Blood Type Antibody Screen Crossmatch 10/21/22 10/21/22 10/22/22 04:50 19:08 04:55 WBC 29.9 H RBC 3.11 L Hgb 9.7 L Hct 28.6 L MCV 92.0 MCH 31.2 MCHC 33.9 RDW 17.7 H Plt Count 37 L MPV 11.6 Immature Gran % (Auto) 1.4 H Neut % (Auto) 84.1 H Lymph % (Auto) 10.8 L [place] % (Auto) 2.9 Eos % (Auto) 0.4 Baso % (Auto) 0.4 Lymph # (Auto) 3.2 [place] # (Auto) 0.9 Eos # (Auto) 0.1 Baso # (Auto) 0.1 Abs Immat Gran (auto) 0.41 H Absolute Neuts (auto) 25.2 H Absolute Nucleated RBC 0.000 Nucleated RBC % (auto) 0.0 Neutrophils % (Manual) Band Neutrophils % Lymphocytes % (Manual) Monocytes % (Manual) Metamyelocytes % Myelocytes % Abs Neuts (Manual) Lymphocytes # (Manual) Monocytes # (Manual) Metamyelocytes # Myelocytes # Nucleated RBCs Smudge Cells Toxic Granulation Toxic Vacuolation Dohle Bodies Platelet Estimate Large Platelets Plt Morphology Comment RBC Morphology Polychromasia Hypochromasia Basophilic Stippling Microcytosis Macrocytosis Spherocytes Target Cells [place] Cells Acanthocytes (Spur) Schistocytes Smear Tech's Comments Smear Path Review Absolute Retic Percent Retic Immature Retic Fraction Retic Hgb Equivalent PT INR Fibrinogen VBG pH 7.40 VBG pCO2 31 VBG pO2 53 VBG HCO3 19 L VBG O2 Saturation 82.0 VBG Base Excess -4.0 Sodium 145 Potassium 3.1 L Chloride 108 Carbon Dioxide 26 Anion Gap 14 BUN 17 H D Creatinine 0.70 Estim Creat Clear Calc 72.8 Estimated GFR > 60 POC Glucose Random Glucose 106 Lactic Acid Lactic Acid F/U @ 2Hr Lactic Acid F/U @ 4Hr Calcium 8.7 Phosphorus 3.5 Magnesium 1.7 Iron TIBC % Saturation Unsat Iron Binding Ferritin Total Bilirubin Direct Bilirubin AST ALT Alkaline Phosphatase Ammonia Lactate Dehydrogenase Troponin I High Sens B-Natriuretic Peptide Total Protein Albumin Lipase Vitamin B12 Folate Procalcitonin Urine Color Urine Appearance Urine pH Ur Specific Amanda Urine Protein Urine Glucose (UA) Urine Ketones Urine Blood Urine Nitrite Ur Leukocyte Esterase Urine RBC Urine WBC Ur Squamous Epith Cells Urine Bacteria Hyaline Casts Urine Yeast Stool Occult Blood Stool Leukocytes, Qual Stl C. cayetanensis PCR Stool Rotavirus A PCR Stl Adenov F 40/41 PCR Stool Astrovirus (PCR) Stool Campylobacter PCR Stool Cryptosporidium PCR Stl Sh Tox Pr E STEC PCR Stool E coli O157 PCR Stl Enterotoxigenic E PCR Stool EPEC (PCR) Stool EAEC (PCR) Stl E. histolytica PCR Stool Giardia Lamblia PCR Stl P. shigelloides PCR Stool Salmonella PCR Stool Sapovirus (PCR) Stl Shigella/EIEC PCR St Y.enterocolitica PCR Stool Vibrio (PCR) Stl Vibrio cholerae PCR Stl Norovirus GI/GII PCR Urine Opiates Screen Urine Fentanyl Screen Ur Barbiturates Screen Ur Phencyclidine Scrn Ur Amphetamines Screen U Benzodiazepines Scrn Urine Cocaine Screen U Marijuana (THC) Screen C. difficile Tox B Gene Influenza Type A (PCR) Influenza Type B (PCR) RSV RNA Qual (PCR) SARS-CoV-2 RNA (RT-PCR) Blood Type Antibody Screen Crossmatch 10/22/22 10/22/22 10/23/22 04:55 04:59 05:11 WBC 25.6 H RBC 3.14 L Hgb 9.8 L Hct 28.8 L MCV 91.7 MCH 31.2 MCHC 34.0 RDW 17.2 H Plt Count 44 L MPV 13.0 H Immature Gran % (Auto) 3.6 H Neut % (Auto) 82.9 H Lymph % (Auto) 9.8 L [place] % (Auto) 2.7 Eos % (Auto) 0.5 Baso % (Auto) 0.5 Lymph # (Auto) 2.5 [place] # (Auto) 0.7 Eos # (Auto) 0.1 Baso # (Auto) 0.1 Abs Immat Gran (auto) 0.91 H Absolute Neuts (auto) 21.3 H Absolute Nucleated RBC 0.000 Nucleated RBC % (auto) 0.0 Neutrophils % (Manual) Band Neutrophils % Lymphocytes % (Manual) Monocytes % (Manual) Metamyelocytes % Myelocytes % Abs Neuts (Manual) Lymphocytes # (Manual) Monocytes # (Manual) Metamyelocytes # Myelocytes # Nucleated RBCs Smudge Cells Toxic Granulation Toxic Vacuolation Dohle Bodies Platelet Estimate Large Platelets Plt Morphology Comment RBC Morphology Polychromasia Hypochromasia Basophilic Stippling Microcytosis Macrocytosis Spherocytes Target Cells [place] Cells Acanthocytes (Spur) Schistocytes Smear Tech's Comments VERIFIED Smear Path Review Absolute Retic Percent Retic Immature Retic Fraction Retic Hgb Equivalent PT INR Fibrinogen VBG pH 7.37 VBG pCO2 41 VBG pO2 80 VBG HCO3 24 VBG O2 Saturation 92.0 VBG Base Excess -0.6 Sodium 144 Potassium 3.4 Chloride 107 Carbon Dioxide 26 Anion Gap 14 BUN 20 H Creatinine 0.78 Estim Creat Clear Calc 65.4 Estimated GFR > 60 POC Glucose Random Glucose 96 Lactic Acid Lactic Acid F/U @ 2Hr Lactic Acid F/U @ 4Hr Calcium 8.7 Phosphorus 3.4 Magnesium 1.9 Iron TIBC % Saturation Unsat Iron Binding Ferritin Total Bilirubin Direct Bilirubin AST ALT Alkaline Phosphatase Ammonia Lactate Dehydrogenase Troponin I High Sens B-Natriuretic Peptide Total Protein Albumin 3.2 L D Lipase Vitamin B12 Folate Procalcitonin Urine Color Urine Appearance Urine pH Ur Specific Amanda Urine Protein Urine Glucose (UA) Urine Ketones Urine Blood Urine Nitrite Ur Leukocyte Esterase Urine RBC Urine WBC Ur Squamous Epith Cells Urine Bacteria Hyaline Casts Urine Yeast Stool Occult Blood Stool Leukocytes, Qual Stl C. cayetanensis PCR Stool Rotavirus A PCR Stl Adenov F 40/41 PCR Stool Astrovirus (PCR) Stool Campylobacter PCR Stool Cryptosporidium PCR Stl Sh Tox Pr E STEC PCR Stool E coli O157 PCR Stl Enterotoxigenic E PCR Stool EPEC (PCR) Stool EAEC (PCR) Stl E. histolytica PCR Stool Giardia Lamblia PCR Stl P. shigelloides PCR Stool Salmonella PCR Stool Sapovirus (PCR) Stl Shigella/EIEC PCR St Y.enterocolitica PCR Stool Vibrio (PCR) Stl Vibrio cholerae PCR Stl Norovirus GI/GII PCR Urine Opiates Screen Urine Fentanyl Screen Ur Barbiturates Screen Ur Phencyclidine Scrn Ur Amphetamines Screen U Benzodiazepines Scrn Urine Cocaine Screen U Marijuana (THC) Screen C. difficile Tox B Gene Influenza Type A (PCR) Influenza Type B (PCR) RSV RNA Qual (PCR) SARS-CoV-2 RNA (RT-PCR) Blood Type Antibody Screen Crossmatch 10/23/22 10/23/2222 05:11 05:16 18:48 WBC RBC Hgb Hct MCV MCH MCHC RDW Plt Count MPV Immature Gran % (Auto) Neut % (Auto) Lymph % (Auto) [place] % (Auto) Eos % (Auto) Baso % (Auto) Lymph # (Auto) [place] # (Auto) Eos # (Auto) Baso # (Auto) Abs Immat Gran (auto) Absolute Neuts (auto) Absolute Nucleated RBC Nucleated RBC % (auto) Neutrophils % (Manual) Band Neutrophils % Lymphocytes % (Manual) Monocytes % (Manual) Metamyelocytes % Myelocytes % Abs Neuts (Manual) Lymphocytes # (Manual) Monocytes # (Manual) Metamyelocytes # Myelocytes # Nucleated RBCs Smudge Cells Toxic Granulation Toxic Vacuolation Dohle Bodies Platelet Estimate Large Platelets Plt Morphology Comment RBC Morphology Polychromasia Hypochromasia Basophilic Stippling Microcytosis Macrocytosis Spherocytes Target Cells [place] Cells Acanthocytes (Spur) Schistocytes Smear Tech's Comments Smear Path Review Absolute Retic Percent Retic Immature Retic Fraction Retic Hgb Equivalent PT INR Fibrinogen VBG pH 7.43 VBG pCO2 48 VBG pO2 49 VBG HCO3 32 H VBG O2 Saturation 74.0 VBG Base Excess 7.0 Sodium 141 141 Potassium 3.2 L 3.3 Chloride 100 101 Carbon Dioxide 32 H 30 H Anion Gap 12 13 BUN 18 H 19 H Creatinine 0.75 0.81 Estim Creat Clear Calc 66.7 61.8 Estimated GFR > 60 > 60 POC Glucose Random Glucose 104 116 H Lactic Acid Lactic Acid F/U @ 2Hr Lactic Acid F/U @ 4Hr Calcium 8.6 8.5 Phosphorus 3.1 Magnesium 1.5 L 1.6 Iron TIBC % Saturation Unsat Iron Binding Ferritin Total Bilirubin Direct Bilirubin AST ALT Alkaline Phosphatase Ammonia Lactate Dehydrogenase Troponin I High Sens B-Natriuretic Peptide Total Protein Albumin 3.0 L Lipase Vitamin B12 Folate Procalcitonin Urine Color Urine Appearance Urine pH Ur Specific Amanda Urine Protein Urine Glucose (UA) Urine Ketones Urine Blood Urine Nitrite Ur Leukocyte Esterase Urine RBC Urine WBC Ur Squamous Epith Cells Urine Bacteria Hyaline Casts Urine Yeast Stool Occult Blood Stool Leukocytes, Qual Stl C. cayetanensis PCR Stool Rotavirus A PCR Stl Adenov F 40/41 PCR Stool Astrovirus (PCR) Stool Campylobacter PCR Stool Cryptosporidium PCR Stl Sh Tox Pr E STEC PCR Stool E coli O157 PCR Stl Enterotoxigenic E PCR Stool EPEC (PCR) Stool EAEC (PCR) Stl E. histolytica PCR Stool Giardia Lamblia PCR Stl P. shigelloides PCR Stool Salmonella PCR Stool Sapovirus (PCR) Stl Shigella/EIEC PCR St Y.enterocolitica PCR Stool Vibrio (PCR) Stl Vibrio cholerae PCR Stl Norovirus GI/GII PCR Urine Opiates Screen Urine Fentanyl Screen Ur Barbiturates Screen Ur Phencyclidine Scrn Ur Amphetamines Screen U Benzodiazepines Scrn Urine Cocaine Screen U Marijuana (THC) Screen C. difficile Tox B Gene Influenza Type A (PCR) Influenza Type B (PCR) RSV RNA Qual (PCR) SARS-CoV-2 RNA (RT-PCR) Blood Type Antibody Screen Crossmatch 10/24/22 10/24/22 10/24/22 05:20 05:20 05:29 WBC 14.7 H RBC 2.49 L D Hgb 7.8 L D Hct 23.4 L MCV 94.0 MCH 31.3 MCHC 33.3 RDW 17.1 H Plt Count 39 L MPV 13.2 H Immature Gran % (Auto) 2.4 H Neut % (Auto) 77.1 H Lymph % (Auto) 17.5 L [place] % (Auto) 2.2 Eos % (Auto) 0.5 Baso % (Auto) 0.3 Lymph # (Auto) 2.6 [place] # (Auto) 0.3 Eos # (Auto) 0.1 Baso # (Auto) 0.1 Abs Immat Gran (auto) 0.36 H Absolute Neuts (auto) 11.3 H Absolute Nucleated RBC 0.000 Nucleated RBC % (auto) 0.0 Neutrophils % (Manual) Band Neutrophils % Lymphocytes % (Manual) Monocytes % (Manual) Metamyelocytes % Myelocytes % Abs Neuts (Manual) Lymphocytes # (Manual) Monocytes # (Manual) Metamyelocytes # Myelocytes # Nucleated RBCs Smudge Cells Toxic Granulation Toxic Vacuolation Dohle Bodies Platelet Estimate Large Platelets Plt Morphology Comment RBC Morphology Polychromasia Hypochromasia Basophilic Stippling Microcytosis Macrocytosis Spherocytes Target Cells [place] Cells Acanthocytes (Spur) Schistocytes Smear Tech's Comments VERIFIED Smear Path Review Absolute Retic Percent Retic Immature Retic Fraction Retic Hgb Equivalent PT INR Fibrinogen VBG pH 7.39 VBG pCO2 42 VBG pO2 42 VBG HCO3 26 VBG O2 Saturation 62.0 VBG Base Excess 1.1 Sodium 143 Potassium 4.0 D Chloride 100 Carbon Dioxide 28 Anion Gap 19 BUN 20 H Creatinine 0.89 Estim Creat Clear Calc 55.8 Estimated GFR > 60 POC Glucose Random Glucose 81 Lactic Acid Lactic Acid F/U @ 2Hr Lactic Acid F/U @ 4Hr Calcium 9.2 D Phosphorus 2.9 Magnesium 2.1 Iron TIBC % Saturation Unsat Iron Binding Ferritin Total Bilirubin 7.8 H Direct Bilirubin 5.4 H AST 31 ALT 25 Alkaline Phosphatase 138 H Ammonia Lactate Dehydrogenase Troponin I High Sens B-Natriuretic Peptide Total Protein 5.2 L Albumin 3.9 Lipase Vitamin B12 Folate Procalcitonin Urine Color Urine Appearance Urine pH Ur Specific Amanda Urine Protein Urine Glucose (UA) Urine Ketones Urine Blood Urine Nitrite Ur Leukocyte Esterase Urine RBC Urine WBC Ur Squamous Epith Cells Urine Bacteria Hyaline Casts Urine Yeast Stool Occult Blood Stool Leukocytes, Qual Stl C. cayetanensis PCR Stool Rotavirus A PCR Stl Adenov F 40/ PCR Stool Astrovirus (PCR) Stool Campylobacter PCR Stool Cryptosporidium PCR Stl Sh Tox Pr E STEC PCR Stool E coli O157 PCR Stl Enterotoxigenic E PCR Stool EPEC (PCR) Stool EAEC (PCR) Stl E. histolytica PCR Stool Giardia Lamblia PCR Stl P. shigelloides PCR Stool Salmonella PCR Stool Sapovirus (PCR) Stl Shigella/EIEC PCR St Y.enterocolitica PCR Stool Vibrio (PCR) Stl Vibrio cholerae PCR Stl Norovirus GI/GII PCR Urine Opiates Screen Urine Fentanyl Screen Ur Barbiturates Screen Ur Phencyclidine Scrn Ur Amphetamines Screen U Benzodiazepines Scrn Urine Cocaine Screen U Marijuana (THC) Screen C. difficile Tox B Gene Influenza Type A (PCR) Influenza Type B (PCR) RSV RNA Qual (PCR) SARS-CoV-2 RNA (RT-PCR) Blood Type Antibody Screen Crossmatch 10/25/22 10/25/22 10/25/22 05:23 05:23 05:32 WBC 13.9 H RBC 2.45 L Hgb 7.6 L Hct 22.5 L MCV 91.8 MCH 31.0 MCHC 33.8 RDW 16.8 H Plt Count 77 L D MPV 12.0 Immature Gran % (Auto) 4.3 H Neut % (Auto) 75.4 H Lymph % (Auto) 17.1 L [place] % (Auto) 2.4 Eos % (Auto) 0.4 Baso % (Auto) 0.4 Lymph # (Auto) 2.4 [place] # (Auto) 0.3 Eos # (Auto) 0.1 Baso # (Auto) 0.1 Abs Immat Gran (auto) 0.59 H Absolute Neuts (auto) 10.5 H Absolute Nucleated RBC 0.000 Nucleated RBC % (auto) 0.0 Neutrophils % (Manual) Band Neutrophils % Lymphocytes % (Manual) Monocytes % (Manual) Metamyelocytes % Myelocytes % Abs Neuts (Manual) Lymphocytes # (Manual) Monocytes # (Manual) Metamyelocytes # Myelocytes # Nucleated RBCs Smudge Cells Toxic Granulation Toxic Vacuolation Dohle Bodies Platelet Estimate Large Platelets Plt Morphology Comment RBC Morphology Polychromasia Hypochromasia Basophilic Stippling Microcytosis Macrocytosis Spherocytes Target Cells [place] Cells Acanthocytes (Spur) Schistocytes Smear Tech's Comments VERIFIED Smear Path Review Absolute Retic Percent Retic Immature Retic Fraction Retic Hgb Equivalent PT INR Fibrinogen VBG pH 7.44 H VBG pCO2 40 VBG pO2 39 VBG HCO3 27 H VBG O2 Saturation 60.0 VBG Base Excess 3.7 Sodium 147 H Potassium 3.6 Chloride 104 Carbon Dioxide 30 H Anion Gap 17 BUN 23 H Creatinine 0.83 Estim Creat Clear Calc 60.4 Estimated GFR > 60 POC Glucose Random Glucose 97 Lactic Acid Lactic Acid F/U @ 2Hr Lactic Acid F/U @ 4Hr Calcium 8.8 Phosphorus 2.8 Magnesium 1.9 Iron TIBC % Saturation Unsat Iron Binding Ferritin Total Bilirubin Direct Bilirubin AST ALT Alkaline Phosphatase Ammonia Lactate Dehydrogenase Troponin I High Sens B-Natriuretic Peptide Total Protein Albumin 3.5 Lipase Vitamin B12 Folate Procalcitonin Urine Color Urine Appearance Urine pH Ur Specific Amanda Urine Protein Urine Glucose (UA) Urine Ketones Urine Blood Urine Nitrite Ur Leukocyte Esterase Urine RBC Urine WBC Ur Squamous Epith Cells Urine Bacteria Hyaline Casts Urine Yeast Stool Occult Blood Stool Leukocytes, Qual Stl C. cayetanensis PCR Stool Rotavirus A PCR Stl Adenov F 40/41 PCR Stool Astrovirus (PCR) Stool Campylobacter PCR Stool Cryptosporidium PCR Stl Sh Tox Pr E STEC PCR Stool E coli O157 PCR Stl Enterotoxigenic E PCR Stool EPEC (PCR) Stool EAEC (PCR) Stl E. histolytica PCR Stool Giardia Lamblia PCR Stl P. shigelloides PCR Stool Salmonella PCR Stool Sapovirus (PCR) Stl Shigella/EIEC PCR St Y.enterocolitica PCR Stool Vibrio (PCR) Stl Vibrio cholerae PCR Stl Norovirus GI/GII PCR Urine Opiates Screen Urine Fentanyl Screen Ur Barbiturates Screen Ur Phencyclidine Scrn Ur Amphetamines Screen U Benzodiazepines Scrn Urine Cocaine Screen U Marijuana (THC) Screen C. difficile Tox B Gene Influenza Type A (PCR) Influenza Type B (PCR) RSV RNA Qual (PCR) SARS-CoV-2 RNA (RT-PCR) Blood Type Antibody Screen Crossmatch 10/25/22 10/25/22 10/26/22 23:25 23:32 05:34 WBC 19.6 H RBC 2.31 L Hgb 7.4 L Hct 21.3 L MCV 92.2 MCH 32.0 MCHC 34.7 RDW 17.3 H Plt Count 130 L D MPV 11.4 Immature Gran % (Auto) Cancelled Neut % (Auto) Cancelled Lymph % (Auto) Cancelled [place] % (Auto) Cancelled Eos % (Auto) Cancelled Baso % (Auto) Cancelled Lymph # (Auto) Cancelled [place] # (Auto) Cancelled Eos # (Auto) Cancelled Baso # (Auto) Cancelled Abs Immat Gran (auto) Cancelled Absolute Neuts (auto) Cancelled Absolute Nucleated RBC 0.230 H Nucleated RBC % (auto) 1.2 H Neutrophils % (Manual) 80 H Band Neutrophils % 4 Lymphocytes % (Manual) 12 L Monocytes % (Manual) 2 Metamyelocytes % Myelocytes % 2 Abs Neuts (Manual) 16.5 H Lymphocytes # (Manual) 2.4 Monocytes # (Manual) 0.4 Metamyelocytes # Myelocytes # 0.4 Nucleated RBCs 2 H Smudge Cells PRESENT Toxic Granulation Toxic Vacuolation Dohle Bodies Platelet Estimate SLIGHTLY DECREASED Large Platelets PRESENT Plt Morphology Comment NORMAL RBC Morphology NOTED Polychromasia Hypochromasia Basophilic Stippling 1+ (0-2) Microcytosis 1+ (5-14) Macrocytosis 1+ (5-14) Spherocytes Target Cells 2+ (15-30) [place] Cells Acanthocytes (Spur) Schistocytes 1+ (0-2) Smear Tech's Comments Smear Path Review Absolute Retic Percent Retic Immature Retic Fraction Retic Hgb Equivalent PT INR Fibrinogen VBG pH 7.41 VBG pCO2 45 VBG pO2 53 VBG HCO3 28 H VBG O2 Saturation 78.0 VBG Base Excess 3.8 Sodium 148 H Potassium 3.3 Chloride 105 Carbon Dioxide 27 Anion Gap 19 BUN 22 H Creatinine 0.83 Estim Creat Clear Calc 60.4 Estimated GFR > 60 POC Glucose Random Glucose 179 H Lactic Acid Lactic Acid F/U @ 2Hr Lactic Acid F/U @ 4Hr Calcium 8.7 Phosphorus 2.1 L Magnesium Iron TIBC % Saturation Unsat Iron Binding Ferritin Total Bilirubin Direct Bilirubin AST ALT Alkaline Phosphatase Ammonia Lactate Dehydrogenase Troponin I High Sens B-Natriuretic Peptide Total Protein Albumin Lipase Vitamin B12 Folate Procalcitonin Urine Color Urine Appearance Urine pH Ur Specific Amanda Urine Protein Urine Glucose (UA) Urine Ketones Urine Blood Urine Nitrite Ur Leukocyte Esterase Urine RBC Urine WBC Ur Squamous Epith Cells Urine Bacteria Hyaline Casts Urine Yeast Stool Occult Blood Stool Leukocytes, Qual Stl C. cayetanensis PCR Stool Rotavirus A PCR Stl Adenov F 40/41 PCR Stool Astrovirus (PCR) Stool Campylobacter PCR Stool Cryptosporidium PCR Stl Sh Tox Pr E STEC PCR Stool E coli O157 PCR Stl Enterotoxigenic E PCR Stool EPEC (PCR) Stool EAEC (PCR) Stl E. histolytica PCR Stool Giardia Lamblia PCR Stl P. shigelloides PCR Stool Salmonella PCR Stool Sapovirus (PCR) Stl Shigella/EIEC PCR St Y.enterocolitica PCR Stool Vibrio (PCR) Stl Vibrio cholerae PCR Stl Norovirus GI/GII PCR Urine Opiates Screen Urine Fentanyl Screen Ur Barbiturates Screen Ur Phencyclidine Scrn Ur Amphetamines Screen U Benzodiazepines Scrn Urine Cocaine Screen U Marijuana (THC) Screen C. difficile Tox B Gene Influenza Type A (PCR) Influenza Type B (PCR) RSV RNA Qual (PCR) SARS-CoV-2 RNA (RT-PCR) Blood Type Antibody Screen Crossmatch 10/26/22 10/26/22 10/27/22 05:36 05:38 05:23 WBC 19.1 H RBC 2.32 L Hgb 7.3 L Hct 21.6 L MCV 93.1 MCH 31.5 MCHC 33.8 RDW 17.2 H Plt Count 118 L MPV 11.4 Immature Gran % (Auto) Cancelled Neut % (Auto) Cancelled Lymph % (Auto) Cancelled [place] % (Auto) Cancelled Eos % (Auto) Cancelled Baso % (Auto) Cancelled Lymph # (Auto) Cancelled [place] # (Auto) Cancelled Eos # (Auto) Cancelled Baso # (Auto) Cancelled Abs Immat Gran (auto) Cancelled Absolute Neuts (auto) Cancelled Absolute Nucleated RBC 0.740 H Nucleated RBC % (auto) 3.9 H Neutrophils % (Manual) 81 H Band Neutrophils % 4 Lymphocytes % (Manual) 10 L Monocytes % (Manual) 2 Metamyelocytes % 3 Myelocytes % Abs Neuts (Manual) 16.2 H Lymphocytes # (Manual) 1.9 Monocytes # (Manual) 0.4 Metamyelocytes # 0.6 Myelocytes # Nucleated RBCs 1 H Smudge Cells Toxic Granulation Toxic Vacuolation Dohle Bodies Platelet Estimate DECREASED Large Platelets Plt Morphology Comment NORMAL RBC Morphology NOTED Polychromasia 1+ (0-2) Hypochromasia 1+ (5-14) Basophilic Stippling Microcytosis Macrocytosis Spherocytes Target Cells 2+ (15-30) [place] Cells Acanthocytes (Spur) Schistocytes Smear Tech's Comments Smear Path Review Absolute Retic Percent Retic Immature Retic Fraction Retic Hgb Equivalent PT INR Fibrinogen VBG pH 7.46 H VBG pCO2 41 VBG pO2 48 VBG HCO3 30 H VBG O2 Saturation 75.0 VBG Base Excess 6.1 Sodium 142 Potassium 3.0 L Chloride 107 Carbon Dioxide 31 H Anion Gap 7 L BUN 24 H Creatinine 0.76 Estim Creat Clear Calc 65.9 Estimated GFR > 60 POC Glucose Random Glucose 127 H Lactic Acid Lactic Acid F/U @ 2Hr Lactic Acid F/U @ 4Hr Calcium 8.9 Phosphorus 2.4 L Magnesium 1.7 Iron TIBC % Saturation Unsat Iron Binding Ferritin Total Bilirubin Direct Bilirubin AST ALT Alkaline Phosphatase Ammonia Lactate Dehydrogenase Troponin I High Sens B-Natriuretic Peptide Total Protein Albumin 3.6 Lipase Vitamin B12 Folate Procalcitonin Urine Color Urine Appearance Urine pH Ur Specific Amanda Urine Protein Urine Glucose (UA) Urine Ketones Urine Blood Urine Nitrite Ur Leukocyte Esterase Urine RBC Urine WBC Ur Squamous Epith Cells Urine Bacteria Hyaline Casts Urine Yeast Stool Occult Blood Stool Leukocytes, Qual Stl C. cayetanensis PCR Stool Rotavirus A PCR Stl Adenov F 40/41 PCR Stool Astrovirus (PCR) Stool Campylobacter PCR Stool Cryptosporidium PCR Stl Sh Tox Pr E STEC PCR Stool E coli O157 PCR Stl Enterotoxigenic E PCR Stool EPEC (PCR) Stool EAEC (PCR) Stl E. histolytica PCR Stool Giardia Lamblia PCR Stl P. shigelloides PCR Stool Salmonella PCR Stool Sapovirus (PCR) Stl Shigella/EIEC PCR St Y.enterocolitica PCR Stool Vibrio (PCR) Stl Vibrio cholerae PCR Stl Norovirus GI/GII PCR Urine Opiates Screen Urine Fentanyl Screen Ur Barbiturates Screen Ur Phencyclidine Scrn Ur Amphetamines Screen U Benzodiazepines Scrn Urine Cocaine Screen U Marijuana (THC) Screen C. difficile Tox B Gene Influenza Type A (PCR) Influenza Type B (PCR) RSV RNA Qual (PCR) SARS-CoV-2 RNA (RT-PCR) Blood Type Antibody Screen Crossmatch 10/27/22 10/27/22 10/27/22 05:23 05:23 18:46 WBC RBC Hgb Hct MCV MCH MCHC RDW Plt Count MPV Immature Gran % (Auto) Neut % (Auto) Lymph % (Auto) [place] % (Auto) Eos % (Auto) Baso % (Auto) Lymph # (Auto) [place] # (Auto) Eos # (Auto) Baso # (Auto) Abs Immat Gran (auto) Absolute Neuts (auto) Absolute Nucleated RBC Nucleated RBC % (auto) Neutrophils % (Manual) Band Neutrophils % Lymphocytes % (Manual) Monocytes % (Manual) Metamyelocytes % Myelocytes % Abs Neuts (Manual) Lymphocytes # (Manual) Monocytes # (Manual) Metamyelocytes # Myelocytes # Nucleated RBCs Smudge Cells Toxic Granulation Toxic Vacuolation Dohle Bodies Platelet Estimate Large Platelets Plt Morphology Comment RBC Morphology Polychromasia Hypochromasia Basophilic Stippling Microcytosis Macrocytosis Spherocytes Target Cells [place] Cells Acanthocytes (Spur) Schistocytes Smear Tech's Comments Smear Path Review Absolute Retic Percent Retic Immature Retic Fraction Retic Hgb Equivalent PT INR Fibrinogen VBG pH 7.45 H VBG pCO2 42 VBG pO2 43 VBG HCO3 30 H VBG O2 Saturation 69.0 VBG Base Excess 5.8 Sodium 153 H Potassium 3.6 Chloride 113 H Carbon Dioxide 31 H Anion Gap 13 BUN 21 H Creatinine 0.68 Estim Creat Clear Calc 73.6 Estimated GFR > 60 POC Glucose Random Glucose 124 H Lactic Acid Lactic Acid F/U @ 2Hr Lactic Acid F/U @ 4Hr Calcium 8.3 L D Phosphorus 2.0 L Magnesium 1.9 Iron TIBC % Saturation Unsat Iron Binding Ferritin Total Bilirubin 4.5 H Direct Bilirubin AST 47 H ALT 22 Alkaline Phosphatase 159 H Ammonia Lactate Dehydrogenase Troponin I High Sens B-Natriuretic Peptide Total Protein 4.6 L Albumin 3.0 L Lipase Vitamin B12 Folate Procalcitonin Urine Color Yellow Urine Appearance Cloudy Urine pH 5.0 Ur Specific Amanda 1.010 Urine Protein Negative Urine Glucose (UA) Negative Urine Ketones Negative Urine Blood Moderate (2+) H Urine Nitrite Negative Ur Leukocyte Esterase Moderate (2+) H Urine RBC >20 H Urine WBC 21-50 H Ur Squamous Epith Cells 0-2 Urine Bacteria None Seen Hyaline Casts 3-5 Urine Yeast Present Stool Occult Blood Stool Leukocytes, Qual Stl C. cayetanensis PCR Stool Rotavirus A PCR Stl Adenov F 40/ PCR Stool Astrovirus (PCR) Stool Campylobacter PCR Stool Cryptosporidium PCR Stl Sh Tox Pr E STEC PCR Stool E coli O157 PCR Stl Enterotoxigenic E PCR Stool EPEC (PCR) Stool EAEC (PCR) Stl E. histolytica PCR Stool Giardia Lamblia PCR Stl P. shigelloides PCR Stool Salmonella PCR Stool Sapovirus (PCR) Stl Shigella/EIEC PCR St Y.enterocolitica PCR Stool Vibrio (PCR) Stl Vibrio cholerae PCR Stl Norovirus GI/GII PCR Urine Opiates Screen Urine Fentanyl Screen Ur Barbiturates Screen Ur Phencyclidine Scrn Ur Amphetamines Screen U Benzodiazepines Scrn Urine Cocaine Screen U Marijuana (THC) Screen C. difficile Tox B Gene Influenza Type A (PCR) Influenza Type B (PCR) RSV RNA Qual (PCR) SARS-CoV-2 RNA (RT-PCR) Blood Type Antibody Screen Crossmatch 10/28/22 10/28/22 10/28/22 05:20 05:20 05:20 WBC RBC Hgb Hct MCV MCH MCHC RDW Plt Count MPV Immature Gran % (Auto) Neut % (Auto) Lymph % (Auto) [place] % (Auto) Eos % (Auto) Baso % (Auto) Lymph # (Auto) [place] # (Auto) Eos # (Auto) Baso # (Auto) Abs Immat Gran (auto) Absolute Neuts (auto) Absolute Nucleated RBC Nucleated RBC % (auto) Neutrophils % (Manual) Band Neutrophils % Lymphocytes % (Manual) Monocytes % (Manual) Metamyelocytes % Myelocytes % Abs Neuts (Manual) Lymphocytes # (Manual) Monocytes # (Manual) Metamyelocytes # Myelocytes # Nucleated RBCs Smudge Cells Toxic Granulation Toxic Vacuolation Dohle Bodies Platelet Estimate Large Platelets Plt Morphology Comment RBC Morphology Polychromasia Hypochromasia Basophilic Stippling Microcytosis Macrocytosis Spherocytes Target Cells [place] Cells Acanthocytes (Spur) Schistocytes Smear Tech's Comments Smear Path Review Absolute Retic Percent Retic Immature Retic Fraction Retic Hgb Equivalent PT INR Fibrinogen VBG pH VBG pCO2 VBG pO2 VBG HCO3 VBG O2 Saturation VBG Base Excess Sodium 153 H Potassium 2.9 L Chloride 105 Carbon Dioxide 38 H Anion Gap 13 BUN 20 H Creatinine 0.75 Estim Creat Clear Calc 66.6 Estimated GFR > 60 POC Glucose Random Glucose 144 H Lactic Acid Lactic Acid F/U @ 2Hr Lactic Acid F/U @ 4Hr Calcium 8.3 L Phosphorus 3.4 Magnesium 1.9 Iron TIBC % Saturation Unsat Iron Binding Ferritin Total Bilirubin 4.0 H Direct Bilirubin AST 34 H ALT 22 Alkaline Phosphatase 149 H Ammonia 45 Lactate Dehydrogenase Troponin I High Sens B-Natriuretic Peptide 2774 H Total Protein 5.2 L Albumin 3.3 L Lipase Vitamin B12 Folate Procalcitonin Urine Color Urine Appearance Urine pH Ur Specific Amanda Urine Protein Urine Glucose (UA) Urine Ketones Urine Blood Urine Nitrite Ur Leukocyte Esterase Urine RBC Urine WBC Ur Squamous Epith Cells Urine Bacteria Hyaline Casts Urine Yeast Stool Occult Blood Stool Leukocytes, Qual Stl C. cayetanensis PCR Stool Rotavirus A PCR Stl Adenov F 40/41 PCR Stool Astrovirus (PCR) Stool Campylobacter PCR Stool Cryptosporidium PCR Stl Sh Tox Pr E STEC PCR Stool E coli O157 PCR Stl Enterotoxigenic E PCR Stool EPEC (PCR) Stool EAEC (PCR) Stl E. histolytica PCR Stool Giardia Lamblia PCR Stl P. shigelloides PCR Stool Salmonella PCR Stool Sapovirus (PCR) Stl Shigella/EIEC PCR St Y.enterocolitica PCR Stool Vibrio (PCR) Stl Vibrio cholerae PCR Stl Norovirus GI/GII PCR Urine Opiates Screen Urine Fentanyl Screen Ur Barbiturates Screen Ur Phencyclidine Scrn Ur Amphetamines Screen U Benzodiazepines Scrn Urine Cocaine Screen U Marijuana (THC) Screen C. difficile Tox B Gene Influenza Type A (PCR) Influenza Type B (PCR) RSV RNA Qual (PCR) SARS-CoV-2 RNA (RT-PCR) Blood Type Antibody Screen Crossmatch 10/28/22 10/28/22 10/28/22 05:20 05:20 05:23 WBC 18.8 H RBC 2.53 L Hgb 8.0 L Hct 24.2 L MCV 95.7 MCH 31.6 MCHC 33.1 RDW 17.3 H Plt Count 139 L MPV 11.0 Immature Gran % (Auto) Neut % (Auto) Lymph % (Auto) [place] % (Auto) Eos % (Auto) Baso % (Auto) Lymph # (Auto) [place] # (Auto) Eos # (Auto) Baso # (Auto) Abs Immat Gran (auto) Absolute Neuts (auto) Absolute Nucleated RBC 0.690 H Nucleated RBC % (auto) 3.7 H Neutrophils % (Manual) Band Neutrophils % Lymphocytes % (Manual) Monocytes % (Manual) Metamyelocytes % Myelocytes % Abs Neuts (Manual) Lymphocytes # (Manual) Monocytes # (Manual) Metamyelocytes # Myelocytes # Nucleated RBCs Smudge Cells Toxic Granulation Toxic Vacuolation Dohle Bodies Platelet Estimate Large Platelets Plt Morphology Comment RBC Morphology Polychromasia Hypochromasia Basophilic Stippling Microcytosis Macrocytosis Spherocytes Target Cells [place] Cells Acanthocytes (Spur) Schistocytes Smear Tech's Comments Smear Path Review Absolute Retic Percent Retic Immature Retic Fraction Retic Hgb Equivalent PT INR Fibrinogen VBG pH 7.52 H VBG pCO2 49 VBG pO2 33 VBG HCO3 40 H VBG O2 Saturation 49.0 VBG Base Excess 15.8 Sodium Potassium Chloride Carbon Dioxide Anion Gap BUN Creatinine Estim Creat Clear Calc Estimated GFR POC Glucose Random Glucose Lactic Acid Lactic Acid F/U @ 2Hr Lactic Acid F/U @ 4Hr Calcium Phosphorus Magnesium Iron TIBC % Saturation Unsat Iron Binding Ferritin Total Bilirubin Direct Bilirubin AST ALT Alkaline Phosphatase Ammonia Lactate Dehydrogenase Troponin I High Sens B-Natriuretic Peptide Total Protein Albumin Lipase Vitamin B12 Folate Procalcitonin 0.56 Urine Color Urine Appearance Urine pH Ur Specific Amanda Urine Protein Urine Glucose (UA) Urine Ketones Urine Blood Urine Nitrite Ur Leukocyte Esterase Urine RBC Urine WBC Ur Squamous Epith Cells Urine Bacteria Hyaline Casts Urine Yeast Stool Occult Blood Stool Leukocytes, Qual Stl C. cayetanensis PCR Stool Rotavirus A PCR Stl Adenov F 40/41 PCR Stool Astrovirus (PCR) Stool Campylobacter PCR Stool Cryptosporidium PCR Stl Sh Tox Pr E STEC PCR Stool E coli O157 PCR Stl Enterotoxigenic E PCR Stool EPEC (PCR) Stool EAEC (PCR) Stl E. histolytica PCR Stool Giardia Lamblia PCR Stl P. shigelloides PCR Stool Salmonella PCR Stool Sapovirus (PCR) Stl Shigella/EIEC PCR St Y.enterocolitica PCR Stool Vibrio (PCR) Stl Vibrio cholerae PCR Stl Norovirus GI/GII PCR Urine Opiates Screen Urine Fentanyl Screen Ur Barbiturates Screen Ur Phencyclidine Scrn Ur Amphetamines Screen U Benzodiazepines Scrn Urine Cocaine Screen U Marijuana (THC) Screen C. difficile Tox B Gene Influenza Type A (PCR) Influenza Type B (PCR) RSV RNA Qual (PCR) SARS-CoV-2 RNA (RT-PCR) Blood Type Antibody Screen Crossmatch 10/28/22 10/29/22 10/29/22 14:59 05:10 05:10 WBC 25.5 H RBC 2.58 L Hgb 8.3 L Hct 25.0 L MCV 96.9 MCH 32.2 MCHC 33.2 RDW 19.5 H Plt Count 170 MPV 11.3 Immature Gran % (Auto) 4.0 H Neut % (Auto) 83.3 H Lymph % (Auto) 9.5 L [place] % (Auto) 2.1 Eos % (Auto) 0.7 Baso % (Auto) 0.4 Lymph # (Auto) 2.4 [place] # (Auto) 0.5 Eos # (Auto) 0.2 Baso # (Auto) 0.1 Abs Immat Gran (auto) 1.02 H Absolute Neuts (auto) 21.2 H Absolute Nucleated RBC 0.460 H Nucleated RBC % (auto) 1.8 H Neutrophils % (Manual) Band Neutrophils % Lymphocytes % (Manual) Monocytes % (Manual) Metamyelocytes % Myelocytes % Abs Neuts (Manual) Lymphocytes # (Manual) Monocytes # (Manual) Metamyelocytes # Myelocytes # Nucleated RBCs Smudge Cells Toxic Granulation Toxic Vacuolation Dohle Bodies Platelet Estimate Large Platelets Plt Morphology Comment RBC Morphology Polychromasia Hypochromasia Basophilic Stippling Microcytosis Macrocytosis Spherocytes Target Cells [place] Cells Acanthocytes (Spur) Schistocytes Smear Tech's Comments VERIFIED Smear Path Review Absolute Retic Percent Retic Immature Retic Fraction Retic Hgb Equivalent PT INR Fibrinogen VBG pH VBG pCO2 VBG pO2 VBG HCO3 VBG O2 Saturation VBG Base Excess Sodium Potassium Chloride Carbon Dioxide Anion Gap BUN Creatinine Estim Creat Clear Calc Estimated GFR POC Glucose Random Glucose Lactic Acid Lactic Acid F/U @ 2Hr Lactic Acid F/U @ 4Hr Calcium Phosphorus 2.4 L Magnesium Iron TIBC % Saturation Unsat Iron Binding Ferritin Total Bilirubin Direct Bilirubin AST ALT Alkaline Phosphatase Ammonia Lactate Dehydrogenase Troponin I High Sens B-Natriuretic Peptide Total Protein Albumin Lipase Vitamin B12 Folate Procalcitonin Urine Color Urine Appearance Urine pH Ur Specific Amanda Urine Protein Urine Glucose (UA) Urine Ketones Urine Blood Urine Nitrite Ur Leukocyte Esterase Urine RBC Urine WBC Ur Squamous Epith Cells Urine Bacteria Hyaline Casts Urine Yeast Stool Occult Blood Stool Leukocytes, Qual Stl C. cayetanensis PCR Stool Rotavirus A PCR Stl Adenov F 40/ PCR Stool Astrovirus (PCR) Stool Campylobacter PCR Stool Cryptosporidium PCR Stl Sh Tox Pr E STEC PCR Stool E coli O157 PCR Stl Enterotoxigenic E PCR Stool EPEC (PCR) Stool EAEC (PCR) Stl E. histolytica PCR Stool Giardia Lamblia PCR Stl P. shigelloides PCR Stool Salmonella PCR Stool Sapovirus (PCR) Stl Shigella/EIEC PCR St Y.enterocolitica PCR Stool Vibrio (PCR) Stl Vibrio cholerae PCR Stl Norovirus GI/GII PCR Urine Opiates Screen Urine Fentanyl Screen Ur Barbiturates Screen Ur Phencyclidine Scrn Ur Amphetamines Screen U Benzodiazepines Scrn Urine Cocaine Screen U Marijuana (THC) Screen C. difficile Tox B Gene NEGATIVE Influenza Type A (PCR) Influenza Type B (PCR) RSV RNA Qual (PCR) SARS-CoV-2 RNA (RT-PCR) Blood Type Antibody Screen Crossmatch 10/29/22 10/29/22 10/29/22 05:10 05:10 19:14 WBC RBC Hgb Hct MCV MCH MCHC RDW Plt Count MPV Immature Gran % (Auto) Neut % (Auto) Lymph % (Auto) [place] % (Auto) Eos % (Auto) Baso % (Auto) Lymph # (Auto) [place] # (Auto) Eos # (Auto) Baso # (Auto) Abs Immat Gran (auto) Absolute Neuts (auto) Absolute Nucleated RBC Nucleated RBC % (auto) Neutrophils % (Manual) Band Neutrophils % Lymphocytes % (Manual) Monocytes % (Manual) Metamyelocytes % Myelocytes % Abs Neuts (Manual) Lymphocytes # (Manual) Monocytes # (Manual) Metamyelocytes # Myelocytes # Nucleated RBCs Smudge Cells Toxic Granulation Toxic Vacuolation Dohle Bodies Platelet Estimate Large Platelets Plt Morphology Comment RBC Morphology Polychromasia Hypochromasia Basophilic Stippling Microcytosis Macrocytosis Spherocytes Target Cells [place] Cells Acanthocytes (Spur) Schistocytes Smear Tech's Comments Smear Path Review Absolute Retic Percent Retic Immature Retic Fraction Retic Hgb Equivalent PT INR Fibrinogen VBG pH 7.53 H VBG pCO2 48 VBG pO2 58 VBG HCO3 40 H VBG O2 Saturation 84.0 VBG Base Excess 16.5 Sodium 145 142 Potassium 2.1 L* D 2.6 L D Chloride 97 99 Carbon Dioxide 37 H 33 H Anion Gap 13 13 BUN 13 12 Creatinine 0.73 0.66 Estim Creat Clear Calc 68.4 74.6 Estimated GFR > 60 > 60 POC Glucose Random Glucose 96 53 L* Lactic Acid Lactic Acid F/U @ 2Hr Lactic Acid F/U @ 4Hr Calcium 8.8 D 8.4 Phosphorus 3.7 Magnesium 2.1 Iron TIBC % Saturation Unsat Iron Binding Ferritin Total Bilirubin 3.0 H Direct Bilirubin AST 22 ALT 17 Alkaline Phosphatase 154 H Ammonia Lactate Dehydrogenase Troponin I High Sens B-Natriuretic Peptide Total Protein 5.5 L Albumin 3.8 Lipase Vitamin B12 Folate Procalcitonin Urine Color Urine Appearance Urine pH Ur Specific Amanda Urine Protein Urine Glucose (UA) Urine Ketones Urine Blood Urine Nitrite Ur Leukocyte Esterase Urine RBC Urine WBC Ur Squamous Epith Cells Urine Bacteria Hyaline Casts Urine Yeast Stool Occult Blood Stool Leukocytes, Qual Stl C. cayetanensis PCR Stool Rotavirus A PCR Stl Adenov F 40/41 PCR Stool Astrovirus (PCR) Stool Campylobacter PCR Stool Cryptosporidium PCR Stl Sh Tox Pr E STEC PCR Stool E coli O157 PCR Stl Enterotoxigenic E PCR Stool EPEC (PCR) Stool EAEC (PCR) Stl E. histolytica PCR Stool Giardia Lamblia PCR Stl P. shigelloides PCR Stool Salmonella PCR Stool Sapovirus (PCR) Stl Shigella/EIEC PCR St Y.enterocolitica PCR Stool Vibrio (PCR) Stl Vibrio cholerae PCR Stl Norovirus GI/GII PCR Urine Opiates Screen Urine Fentanyl Screen Ur Barbiturates Screen Ur Phencyclidine Scrn Ur Amphetamines Screen U Benzodiazepines Scrn Urine Cocaine Screen U Marijuana (THC) Screen C. difficile Tox B Gene Influenza Type A (PCR) Influenza Type B (PCR) RSV RNA Qual (PCR) SARS-CoV-2 RNA (RT-PCR) Blood Type Antibody Screen Crossmatch 10/29/22 10/30/22 10/30/22 21:07 05:24 05:25 WBC 16.2 H RBC 2.37 L Hgb 7.6 L Hct 23.6 L MCV 99.6 H MCH 32.1 MCHC 32.2 RDW 20.9 H Plt Count 138 L MPV 11.3 Immature Gran % (Auto) Neut % (Auto) Lymph % (Auto) [place] % (Auto) Eos % (Auto) Baso % (Auto) Lymph # (Auto) [place] # (Auto) Eos # (Auto) Baso # (Auto) Abs Immat Gran (auto) Absolute Neuts (auto) Absolute Nucleated RBC 0.090 H Nucleated RBC % (auto) 0.6 H Neutrophils % (Manual) Band Neutrophils % Lymphocytes % (Manual) Monocytes % (Manual) Metamyelocytes % Myelocytes % Abs Neuts (Manual) Lymphocytes # (Manual) Monocytes # (Manual) Metamyelocytes # Myelocytes # Nucleated RBCs Smudge Cells Toxic Granulation Toxic Vacuolation Dohle Bodies Platelet Estimate Large Platelets Plt Morphology Comment RBC Morphology Polychromasia Hypochromasia Basophilic Stippling Microcytosis Macrocytosis Spherocytes Target Cells Tenisha Cells Acanthocytes (Spur) Schistocytes Smear Tech's Comments Smear Path Review Absolute Retic Percent Retic Immature Retic Fraction Retic Hgb Equivalent PT INR Fibrinogen VBG pH 7.46 H VBG pCO2 52 VBG pO2 45 VBG HCO3 38 H VBG O2 Saturation 70.0 VBG Base Excess 12.9 Sodium Potassium Chloride Carbon Dioxide Anion Gap BUN Creatinine Estim Creat Clear Calc Estimated GFR POC Glucose 112 Random Glucose Lactic Acid Lactic Acid F/U @ 2Hr Lactic Acid F/U @ 4Hr Calcium Phosphorus Magnesium Iron TIBC % Saturation Unsat Iron Binding Ferritin Total Bilirubin Direct Bilirubin AST ALT Alkaline Phosphatase Ammonia Lactate Dehydrogenase Troponin I High Sens B-Natriuretic Peptide Total Protein Albumin Lipase Vitamin B12 Folate Procalcitonin Urine Color Urine Appearance Urine pH Ur Specific Amanda Urine Protein Urine Glucose (UA) Urine Ketones Urine Blood Urine Nitrite Ur Leukocyte Esterase Urine RBC Urine WBC Ur Squamous Epith Cells Urine Bacteria Hyaline Casts Urine Yeast Stool Occult Blood Stool Leukocytes, Qual Stl C. cayetanensis PCR Stool Rotavirus A PCR Stl Adenov F 40/41 PCR Stool Astrovirus (PCR) Stool Campylobacter PCR Stool Cryptosporidium PCR Stl Sh Tox Pr E STEC PCR Stool E coli O157 PCR Stl Enterotoxigenic E PCR Stool EPEC (PCR) Stool EAEC (PCR) Stl E. histolytica PCR Stool Giardia Lamblia PCR Stl P. shigelloides PCR Stool Salmonella PCR Stool Sapovirus (PCR) Stl Shigella/EIEC PCR St Y.enterocolitica PCR Stool Vibrio (PCR) Stl Vibrio cholerae PCR Stl Norovirus GI/GII PCR Urine Opiates Screen Urine Fentanyl Screen Ur Barbiturates Screen Ur Phencyclidine Scrn Ur Amphetamines Screen U Benzodiazepines Scrn Urine Cocaine Screen U Marijuana (THC) Screen C. difficile Tox B Gene Influenza Type A (PCR) Influenza Type B (PCR) RSV RNA Qual (PCR) SARS-CoV-2 RNA (RT-PCR) Blood Type Antibody Screen Crossmatch 10/30/22 10/30/22 10/30/22 05:25 05:25 12:21 WBC RBC Hgb 6.9 L* Hct 21.9 L MCV MCH MCHC RDW Plt Count MPV Immature Gran % (Auto) Neut % (Auto) Lymph % (Auto) [place] % (Auto) Eos % (Auto) Baso % (Auto) Lymph # (Auto) [place] # (Auto) Eos # (Auto) Baso # (Auto) Abs Immat Gran (auto) Absolute Neuts (auto) Absolute Nucleated RBC Nucleated RBC % (auto) Neutrophils % (Manual) Band Neutrophils % Lymphocytes % (Manual) Monocytes % (Manual) Metamyelocytes % Myelocytes % Abs Neuts (Manual) Lymphocytes # (Manual) Monocytes # (Manual) Metamyelocytes # Myelocytes # Nucleated RBCs Smudge Cells Toxic Granulation Toxic Vacuolation Dohle Bodies Platelet Estimate Large Platelets Plt Morphology Comment RBC Morphology Polychromasia Hypochromasia Basophilic Stippling Microcytosis Macrocytosis Spherocytes Target Cells Tenisha Cells Acanthocytes (Spur) Schistocytes Smear Tech's Comments Smear Path Review Absolute Retic Percent Retic Immature Retic Fraction Retic Hgb Equivalent PT INR Fibrinogen VBG pH VBG pCO2 VBG pO2 VBG HCO3 VBG O2 Saturation VBG Base Excess Sodium 144 Potassium 2.6 L Chloride 102 Carbon Dioxide 32 H Anion Gap 13 BUN 11 Creatinine 0.66 Estim Creat Clear Calc 74.6 Estimated GFR > 60 POC Glucose Random Glucose 74 Lactic Acid Lactic Acid F/U @ 2Hr Lactic Acid F/U @ 4Hr Calcium 8.1 L Phosphorus 4.2 Magnesium 2.1 Iron TIBC % Saturation Unsat Iron Binding Ferritin Total Bilirubin 2.3 H Direct Bilirubin AST 21 ALT 14 Alkaline Phosphatase 114 Ammonia Lactate Dehydrogenase Troponin I High Sens B-Natriuretic Peptide 1083 H Total Protein 4.7 L Albumin 3.0 L Lipase Vitamin B12 Folate Procalcitonin Urine Color Urine Appearance Urine pH Ur Specific Amanda Urine Protein Urine Glucose (UA) Urine Ketones Urine Blood Urine Nitrite Ur Leukocyte Esterase Urine RBC Urine WBC Ur Squamous Epith Cells Urine Bacteria Hyaline Casts Urine Yeast Stool Occult Blood Stool Leukocytes, Qual Stl C. cayetanensis PCR Stool Rotavirus A PCR Stl Adenov F 40/ PCR Stool Astrovirus (PCR) Stool Campylobacter PCR Stool Cryptosporidium PCR Stl Sh Tox Pr E STEC PCR Stool E coli O157 PCR Stl Enterotoxigenic E PCR Stool EPEC (PCR) Stool EAEC (PCR) Stl E. histolytica PCR Stool Giardia Lamblia PCR Stl P. shigelloides PCR Stool Salmonella PCR Stool Sapovirus (PCR) Stl Shigella/EIEC PCR St Y.enterocolitica PCR Stool Vibrio (PCR) Stl Vibrio cholerae PCR Stl Norovirus GI/GII PCR Urine Opiates Screen Urine Fentanyl Screen Ur Barbiturates Screen Ur Phencyclidine Scrn Ur Amphetamines Screen U Benzodiazepines Scrn Urine Cocaine Screen U Marijuana (THC) Screen C. difficile Tox B Gene Influenza Type A (PCR) Influenza Type B (PCR) RSV RNA Qual (PCR) SARS-CoV-2 RNA (RT-PCR) Blood Type Antibody Screen Crossmatch 10/30/22 10/30/22 10/30/22 17:38 17:38 17:38 WBC RBC Hgb 6.8 L* Hct 21.3 L MCV MCH MCHC RDW Plt Count MPV Immature Gran % (Auto) Neut % (Auto) Lymph % (Auto) [place] % (Auto) Eos % (Auto) Baso % (Auto) Lymph # (Auto) [place] # (Auto) Eos # (Auto) Baso # (Auto) Abs Immat Gran (auto) Absolute Neuts (auto) Absolute Nucleated RBC Nucleated RBC % (auto) Neutrophils % (Manual) Band Neutrophils % Lymphocytes % (Manual) Monocytes % (Manual) Metamyelocytes % Myelocytes % Abs Neuts (Manual) Lymphocytes # (Manual) Monocytes # (Manual) Metamyelocytes # Myelocytes # Nucleated RBCs Smudge Cells Toxic Granulation Toxic Vacuolation Dohle Bodies Platelet Estimate Large Platelets Plt Morphology Comment RBC Morphology Polychromasia Hypochromasia Basophilic Stippling Microcytosis Macrocytosis Spherocytes Target Cells Tenisha Cells Acanthocytes (Spur) Schistocytes Smear Tech's Comments Smear Path Review Absolute Retic Percent Retic Immature Retic Fraction Retic Hgb Equivalent PT 14.3 H INR 1.2 H Fibrinogen VBG pH VBG pCO2 VBG pO2 VBG HCO3 VBG O2 Saturation VBG Base Excess Sodium 144 Potassium 2.8 L Chloride 107 Carbon Dioxide 28 Anion Gap 12 BUN 10 Creatinine 0.63 Estim Creat Clear Calc 72.0 Estimated GFR > 60 POC Glucose Random Glucose 93 Lactic Acid Lactic Acid F/U @ 2Hr Lactic Acid F/U @ 4Hr Calcium 8.5 Phosphorus Magnesium Iron TIBC % Saturation Unsat Iron Binding Ferritin Total Bilirubin Direct Bilirubin AST ALT Alkaline Phosphatase Ammonia Lactate Dehydrogenase Troponin I High Sens B-Natriuretic Peptide Total Protein Albumin Lipase Vitamin B12 Folate Procalcitonin Urine Color Urine Appearance Urine pH Ur Specific Amanda Urine Protein Urine Glucose (UA) Urine Ketones Urine Blood Urine Nitrite Ur Leukocyte Esterase Urine RBC Urine WBC Ur Squamous Epith Cells Urine Bacteria Hyaline Casts Urine Yeast Stool Occult Blood Stool Leukocytes, Qual Stl C. cayetanensis PCR Stool Rotavirus A PCR Stl Adenov F 40/41 PCR Stool Astrovirus (PCR) Stool Campylobacter PCR Stool Cryptosporidium PCR Stl Sh Tox Pr E STEC PCR Stool E coli O157 PCR Stl Enterotoxigenic E PCR Stool EPEC (PCR) Stool EAEC (PCR) Stl E. histolytica PCR Stool Giardia Lamblia PCR Stl P. shigelloides PCR Stool Salmonella PCR Stool Sapovirus (PCR) Stl Shigella/EIEC PCR St Y.enterocolitica PCR Stool Vibrio (PCR) Stl Vibrio cholerae PCR Stl Norovirus GI/GII PCR Urine Opiates Screen Urine Fentanyl Screen Ur Barbiturates Screen Ur Phencyclidine Scrn Ur Amphetamines Screen U Benzodiazepines Scrn Urine Cocaine Screen U Marijuana (THC) Screen C. difficile Tox B Gene Influenza Type A (PCR) Influenza Type B (PCR) RSV RNA Qual (PCR) SARS-CoV-2 RNA (RT-PCR) Blood Type Antibody Screen Crossmatch 10/31/22 10/31/22 10/31/22 06:11 06:11 23:45 WBC 16.1 H RBC 2.30 L Hgb 7.4 L Hct 23.9 L MCV 103.9 H MCH 32.2 MCHC 31.0 RDW 22.2 H Plt Count TNP MPV Not Reportable Immature Gran % (Auto) Neut % (Auto) Lymph % (Auto) [place] % (Auto) Eos % (Auto) Baso % (Auto) Lymph # (Auto) [place] # (Auto) Eos # (Auto) Baso # (Auto) Abs Immat Gran (auto) Absolute Neuts (auto) Absolute Nucleated RBC 0.040 H Nucleated RBC % (auto) 0.2 Neutrophils % (Manual) Band Neutrophils % Lymphocytes % (Manual) Monocytes % (Manual) Metamyelocytes % Myelocytes % Abs Neuts (Manual) Lymphocytes # (Manual) Monocytes # (Manual) Metamyelocytes # Myelocytes # Nucleated RBCs Smudge Cells Toxic Granulation Toxic Vacuolation Dohle Bodies Platelet Estimate Large Platelets Plt Morphology Comment RBC Morphology Polychromasia Hypochromasia Basophilic Stippling Microcytosis Macrocytosis Spherocytes Target Cells Tenisha Cells Acanthocytes (Spur) Schistocytes Smear Tech's Comments Smear Path Review Absolute Retic Percent Retic Immature Retic Fraction Retic Hgb Equivalent PT INR Fibrinogen VBG pH VBG pCO2 VBG pO2 VBG HCO3 VBG O2 Saturation VBG Base Excess Sodium 140 Potassium 4.0 D Chloride 111 H Carbon Dioxide 21 L Anion Gap 12 BUN 9 Creatinine 0.62 Estim Creat Clear Calc 73.2 Estimated GFR > 60 POC Glucose Random Glucose 77 Lactic Acid Lactic Acid F/U @ 2Hr Lactic Acid F/U @ 4Hr Calcium 8.5 Phosphorus 1.9 L Magnesium 2.5 Iron TIBC % Saturation Unsat Iron Binding Ferritin Total Bilirubin 2.1 H Direct Bilirubin AST 20 ALT 9 Alkaline Phosphatase 104 Ammonia Lactate Dehydrogenase Troponin I High Sens B-Natriuretic Peptide Total Protein 5.2 L Albumin 3.7 Lipase Vitamin B12 Folate Procalcitonin Urine Color Urine Appearance Urine pH Ur Specific Amanda Urine Protein Urine Glucose (UA) Urine Ketones Urine Blood Urine Nitrite Ur Leukocyte Esterase Urine RBC Urine WBC Ur Squamous Epith Cells Urine Bacteria Hyaline Casts Urine Yeast Stool Occult Blood Stool Leukocytes, Qual Stl C. cayetanensis PCR Stool Rotavirus A PCR Stl Adenov F 40/41 PCR Stool Astrovirus (PCR) Stool Campylobacter PCR Stool Cryptosporidium PCR Stl Sh Tox Pr E STEC PCR Stool E coli O157 PCR Stl Enterotoxigenic E PCR Stool EPEC (PCR) Stool EAEC (PCR) Stl E. histolytica PCR Stool Giardia Lamblia PCR Stl P. shigelloides PCR Stool Salmonella PCR Stool Sapovirus (PCR) Stl Shigella/EIEC PCR St Y.enterocolitica PCR Stool Vibrio (PCR) Stl Vibrio cholerae PCR Stl Norovirus GI/GII PCR Urine Opiates Screen Urine Fentanyl Screen Ur Barbiturates Screen Ur Phencyclidine Scrn Ur Amphetamines Screen U Benzodiazepines Scrn Urine Cocaine Screen U Marijuana (THC) Screen C. difficile Tox B Gene NEGATIVE Influenza Type A (PCR) Influenza Type B (PCR) RSV RNA Qual (PCR) SARS-CoV-2 RNA (RT-PCR) Blood Type Antibody Screen Crossmatch 10/31/22 10/31/22 10/31/22 23:45 23:45 23:45 WBC RBC Hgb Hct MCV MCH MCHC RDW Plt Count MPV Immature Gran % (Auto) Neut % (Auto) Lymph % (Auto) [place] % (Auto) Eos % (Auto) Baso % (Auto) Lymph # (Auto) [place] # (Auto) Eos # (Auto) Baso # (Auto) Abs Immat Gran (auto) Absolute Neuts (auto) Absolute Nucleated RBC Nucleated RBC % (auto) Neutrophils % (Manual) Band Neutrophils % Lymphocytes % (Manual) Monocytes % (Manual) Metamyelocytes % Myelocytes % Abs Neuts (Manual) Lymphocytes # (Manual) Monocytes # (Manual) Metamyelocytes # Myelocytes # Nucleated RBCs Smudge Cells Toxic Granulation Toxic Vacuolation Dohle Bodies Platelet Estimate Large Platelets Plt Morphology Comment RBC Morphology Polychromasia Hypochromasia Basophilic Stippling Microcytosis Macrocytosis Spherocytes Target Cells Tenisha Cells Acanthocytes (Spur) Schistocytes Smear Tech's Comments Smear Path Review Absolute Retic Percent Retic Immature Retic Fraction Retic Hgb Equivalent PT INR Fibrinogen VBG pH VBG pCO2 VBG pO2 VBG HCO3 VBG O2 Saturation VBG Base Excess Sodium Potassium Chloride Carbon Dioxide Anion Gap BUN Creatinine Estim Creat Clear Calc Estimated GFR POC Glucose Random Glucose Lactic Acid Lactic Acid F/U @ 2Hr Lactic Acid F/U @ 4Hr Calcium Phosphorus Magnesium Iron TIBC % Saturation Unsat Iron Binding Ferritin Total Bilirubin Direct Bilirubin AST ALT Alkaline Phosphatase Ammonia Lactate Dehydrogenase Troponin I High Sens B-Natriuretic Peptide Total Protein Albumin Lipase Vitamin B12 Folate Procalcitonin Urine Color Urine Appearance Urine pH Ur Specific Amanda Urine Protein Urine Glucose (UA) Urine Ketones Urine Blood Urine Nitrite Ur Leukocyte Esterase Urine RBC Urine WBC Ur Squamous Epith Cells Urine Bacteria Hyaline Casts Urine Yeast Stool Occult Blood POSITIVE Stool Leukocytes, Qual NEGATIVE Stl C. cayetanensis PCR Not Detected Stool Rotavirus A PCR Not Detected Stl Adenov F 40/41 PCR Not Detected Stool Astrovirus (PCR) Not Detected Stool Campylobacter PCR Not Detected Stool Cryptosporidium PCR Not Detected Stl Sh Tox Pr E STEC PCR Not Detected Stool E coli O157 PCR Not applicable Stl Enterotoxigenic E PCR Not Detected Stool EPEC (PCR) Not Detected Stool EAEC (PCR) Not Detected Stl E. histolytica PCR Not Detected Stool Giardia Lamblia PCR Not Detected Stl P. shigelloides PCR Not Detected Stool Salmonella PCR Not Detected Stool Sapovirus (PCR) Not Detected Stl Shigella/EIEC PCR Not Detected St Y.enterocolitica PCR Not Detected Stool Vibrio (PCR) Not Detected Stl Vibrio cholerae PCR Not Detected Stl Norovirus GI/GII PCR Not Detected Urine Opiates Screen Urine Fentanyl Screen Ur Barbiturates Screen Ur Phencyclidine Scrn Ur Amphetamines Screen U Benzodiazepines Scrn Urine Cocaine Screen U Marijuana (THC) Screen C. difficile Tox B Gene Influenza Type A (PCR) Influenza Type B (PCR) RSV RNA Qual (PCR) SARS-CoV-2 RNA (RT-PCR) Blood Type Antibody Screen Crossmatch 11/01/22 11/01/22 11/01/22 05:54 05:54 05:54 WBC 20.9 H RBC 2.49 L Hgb 8.2 L Hct 25.4 L MCV 102.0 H MCH 32.9 MCHC 32.3 RDW 22.5 H Plt Count 211 D MPV 11.0 Immature Gran % (Auto) Neut % (Auto) Lymph % (Auto) [place] % (Auto) Eos % (Auto) Baso % (Auto) Lymph # (Auto) [place] # (Auto) Eos # (Auto) Baso # (Auto) Abs Immat Gran (auto) Absolute Neuts (auto) Absolute Nucleated RBC 0.020 H Nucleated RBC % (auto) 0.1 Neutrophils % (Manual) Band Neutrophils % Lymphocytes % (Manual) Monocytes % (Manual) Metamyelocytes % Myelocytes % Abs Neuts (Manual) Lymphocytes # (Manual) Monocytes # (Manual) Metamyelocytes # Myelocytes # Nucleated RBCs Smudge Cells Toxic Granulation Toxic Vacuolation Dohle Bodies Platelet Estimate Large Platelets Plt Morphology Comment RBC Morphology Polychromasia Hypochromasia Basophilic Stippling Microcytosis Macrocytosis Spherocytes Target Cells Tenisha Cells Acanthocytes (Spur) Schistocytes Smear Tech's Comments Smear Path Review Absolute Retic 0.308 H Percent Retic 12.2 H Immature Retic Fraction 20.9 H Retic Hgb Equivalent 36.6 H PT INR Fibrinogen VBG pH VBG pCO2 VBG pO2 VBG HCO3 VBG O2 Saturation VBG Base Excess Sodium 141 Potassium 3.3 Chloride 109 H Carbon Dioxide 23 Anion Gap 12 BUN 11 Creatinine 0.59 Estim Creat Clear Calc 74.2 Estimated GFR > 60 POC Glucose Random Glucose 63 Lactic Acid Lactic Acid F/U @ 2Hr Lactic Acid F/U @ 4Hr Calcium 8.5 Phosphorus 2.1 L Magnesium 2.2 Iron TIBC % Saturation Unsat Iron Binding Ferritin Total Bilirubin Direct Bilirubin AST ALT Alkaline Phosphatase Ammonia Lactate Dehydrogenase 314 H Troponin I High Sens B-Natriuretic Peptide Total Protein Albumin Lipase Vitamin B12 > 2000 H Folate 10.4 Procalcitonin Urine Color Urine Appearance Urine pH Ur Specific Amanda Urine Protein Urine Glucose (UA) Urine Ketones Urine Blood Urine Nitrite Ur Leukocyte Esterase Urine RBC Urine WBC Ur Squamous Epith Cells Urine Bacteria Hyaline Casts Urine Yeast Stool Occult Blood Stool Leukocytes, Qual Stl C. cayetanensis PCR Stool Rotavirus A PCR Stl Adenov F 40/41 PCR Stool Astrovirus (PCR) Stool Campylobacter PCR Stool Cryptosporidium PCR Stl Sh Tox Pr E STEC PCR Stool E coli O157 PCR Stl Enterotoxigenic E PCR Stool EPEC (PCR) Stool EAEC (PCR) Stl E. histolytica PCR Stool Giardia Lamblia PCR Stl P. shigelloides PCR Stool Salmonella PCR Stool Sapovirus (PCR) Stl Shigella/EIEC PCR St Y.enterocolitica PCR Stool Vibrio (PCR) Stl Vibrio cholerae PCR Stl Norovirus GI/GII PCR Urine Opiates Screen Urine Fentanyl Screen Ur Barbiturates Screen Ur Phencyclidine Scrn Ur Amphetamines Screen U Benzodiazepines Scrn Urine Cocaine Screen U Marijuana (THC) Screen C. difficile Tox B Gene Influenza Type A (PCR) Influenza Type B (PCR) RSV RNA Qual (PCR) SARS-CoV-2 RNA (RT-PCR) Blood Type Antibody Screen Crossmatch 11/01/22 11/02/22 11/02/22 10:47 06:51 06:51 WBC 13.3 H RBC 3.52 L D Hgb 11.6 L D Hct 35.4 L D MCV 100.6 H MCH 33.0 MCHC 32.8 RDW 20.1 H Plt Count 206 MPV 10.8 Immature Gran % (Auto) Neut % (Auto) Lymph % (Auto) [place] % (Auto) Eos % (Auto) Baso % (Auto) Lymph # (Auto) [place] # (Auto) Eos # (Auto) Baso # (Auto) Abs Immat Gran (auto) Absolute Neuts (auto) Absolute Nucleated RBC 0.000 Nucleated RBC % (auto) 0.0 Neutrophils % (Manual) Band Neutrophils % Lymphocytes % (Manual) Monocytes % (Manual) Metamyelocytes % Myelocytes % Abs Neuts (Manual) Lymphocytes # (Manual) Monocytes # (Manual) Metamyelocytes # Myelocytes # Nucleated RBCs Smudge Cells Toxic Granulation Toxic Vacuolation Dohle Bodies Platelet Estimate Large Platelets Plt Morphology Comment RBC Morphology Polychromasia Hypochromasia Basophilic Stippling Microcytosis Macrocytosis Spherocytes Target Cells Tenisha Cells Acanthocytes (Spur) Schistocytes Smear Tech's Comments Smear Path Review Absolute Retic Percent Retic Immature Retic Fraction Retic Hgb Equivalent PT INR Fibrinogen VBG pH VBG pCO2 VBG pO2 VBG HCO3 VBG O2 Saturation VBG Base Excess Sodium 140 Potassium 3.5 Chloride 108 Carbon Dioxide 23 Anion Gap 13 BUN 10 Creatinine 0.46 L Estim Creat Clear Calc 98.6 Estimated GFR > 60 POC Glucose Random Glucose 63 Lactic Acid Lactic Acid F/U @ 2Hr Lactic Acid F/U @ 4Hr Calcium 8.4 Phosphorus 2.6 L Magnesium Iron 17 L TIBC 142 L % Saturation 12 L Unsat Iron Binding 125 Ferritin Total Bilirubin Direct Bilirubin AST ALT Alkaline Phosphatase Ammonia Lactate Dehydrogenase Troponin I High Sens B-Natriuretic Peptide Total Protein Albumin Lipase Vitamin B12 Folate Procalcitonin Urine Color Urine Appearance Urine pH Ur Specific Amanda Urine Protein Urine Glucose (UA) Urine Ketones Urine Blood Urine Nitrite Ur Leukocyte Esterase Urine RBC Urine WBC Ur Squamous Epith Cells Urine Bacteria Hyaline Casts Urine Yeast Stool Occult Blood Stool Leukocytes, Qual Stl C. cayetanensis PCR Stool Rotavirus A PCR Stl Adenov F 40/ PCR Stool Astrovirus (PCR) Stool Campylobacter PCR Stool Cryptosporidium PCR Stl Sh Tox Pr E STEC PCR Stool E coli O157 PCR Stl Enterotoxigenic E PCR Stool EPEC (PCR) Stool EAEC (PCR) Stl E. histolytica PCR Stool Giardia Lamblia PCR Stl P. shigelloides PCR Stool Salmonella PCR Stool Sapovirus (PCR) Stl Shigella/EIEC PCR St Y.enterocolitica PCR Stool Vibrio (PCR) Stl Vibrio cholerae PCR Stl Norovirus GI/GII PCR Urine Opiates Screen Urine Fentanyl Screen Ur Barbiturates Screen Ur Phencyclidine Scrn Ur Amphetamines Screen U Benzodiazepines Scrn Urine Cocaine Screen U Marijuana (THC) Screen C. difficile Tox B Gene Influenza Type A (PCR) Influenza Type B (PCR) RSV RNA Qual (PCR) SARS-CoV-2 RNA (RT-PCR) Blood Type O Positive Antibody Screen NEGATIVE Crossmatch See Detail 11/02/22 11/02/22 06:51 06:51 WBC RBC Hgb Hct MCV MCH MCHC RDW Plt Count MPV Immature Gran % (Auto) Neut % (Auto) Lymph % (Auto) [place] % (Auto) Eos % (Auto) Baso % (Auto) Lymph # (Auto) [place] # (Auto) Eos # (Auto) Baso # (Auto) Abs Immat Gran (auto) Absolute Neuts (auto) Absolute Nucleated RBC Nucleated RBC % (auto) Neutrophils % (Manual) Band Neutrophils % Lymphocytes % (Manual) Monocytes % (Manual) Metamyelocytes % Myelocytes % Abs Neuts (Manual) Lymphocytes # (Manual) Monocytes # (Manual) Metamyelocytes # Myelocytes # Nucleated RBCs Smudge Cells Toxic Granulation Toxic Vacuolation Dohle Bodies Platelet Estimate Large Platelets Plt Morphology Comment RBC Morphology Polychromasia Hypochromasia Basophilic Stippling Microcytosis Macrocytosis Spherocytes Target Cells Tenisha Cells Acanthocytes (Spur) Schistocytes Smear Tech's Comments Smear Path Review Absolute Retic Percent Retic Immature Retic Fraction Retic Hgb Equivalent PT INR Fibrinogen VBG pH VBG pCO2 VBG pO2 VBG HCO3 VBG O2 Saturation VBG Base Excess Sodium Potassium Chloride Carbon Dioxide Anion Gap BUN Creatinine Estim Creat Clear Calc Estimated GFR POC Glucose Random Glucose Lactic Acid Lactic Acid F/U @ 2Hr Lactic Acid F/U @ 4Hr Calcium Phosphorus Magnesium Iron TIBC % Saturation Unsat Iron Binding Ferritin 700 H Total Bilirubin Direct Bilirubin AST ALT Alkaline Phosphatase Ammonia Lactate Dehydrogenase Troponin I High Sens B-Natriuretic Peptide 1302 H Total Protein Albumin Lipase Vitamin B12 Folate Procalcitonin Urine Color Urine Appearance Urine pH Ur Specific Amanda Urine Protein Urine Glucose (UA) Urine Ketones Urine Blood Urine Nitrite Ur Leukocyte Esterase Urine RBC Urine WBC Ur Squamous Epith Cells Urine Bacteria Hyaline Casts Urine Yeast Stool Occult Blood Stool Leukocytes, Qual Stl C. cayetanensis PCR Stool Rotavirus A PCR Stl Adenov F 40/41 PCR Stool Astrovirus (PCR) Stool Campylobacter PCR Stool Cryptosporidium PCR Stl Sh Tox Pr E STEC PCR Stool E coli O157 PCR Stl Enterotoxigenic E PCR Stool EPEC (PCR) Stool EAEC (PCR) Stl E. histolytica PCR Stool Giardia Lamblia PCR Stl P. shigelloides PCR Stool Salmonella PCR Stool Sapovirus (PCR) Stl Shigella/EIEC PCR St Y.enterocolitica PCR Stool Vibrio (PCR) Stl Vibrio cholerae PCR Stl Norovirus GI/GII PCR Urine Opiates Screen Urine Fentanyl Screen Ur Barbiturates Screen Ur Phencyclidine Scrn Ur Amphetamines Screen U Benzodiazepines Scrn Urine Cocaine Screen U Marijuana (THC) Screen C. difficile Tox B Gene Influenza Type A (PCR) Influenza Type B (PCR) RSV RNA Qual (PCR) SARS-CoV-2 RNA (RT-PCR) Blood Type Antibody Screen Crossmatch Airway Mallampati Class: II TM Dist: >3cm Neck ROM: Full Loose/Missing/Broken Teeth: No Heart: RRR Lungs: CTA Assessment and Plan Assessment Anesthesia Assessment: Anesthesia Plan Discussed and Chart Reviewed Final Anesthetic Review Family History of Problems with Anesthesia: No History of Problems with Anesthesia: No NPO: Yes ASA Class: III and Emergency Final Preanesthetic Review: No Changes in Pt Med Stat, Meds/Allgs Chart Reviewed, Consent Obtained/Reviewed and Anes Risks/Benef Reviewed Patient Risk: Intermediate Procedure Risk: Low Anesthetic Plan Anesthetic Plan: GA Disposition: Standard PACU
[2022-11-07] MEDS: Lactated Ringers 500 ML 20 ML IVCONT (15:49)
--- NOTE | 2022-11-07 17:43 | MHC.SHP ---
Pre-Procedural Eval Section A Date of Service: 11/07/22 The patient is an INPATIENT: Yes Changes since office visit: Yes Cold of Flu in the past 2 weeks, Yes New Medical Problems, Yes Changes in Medication and Yes Patient answered all questions The History & Physical has been completed within 30 days and I have reviewed it.: Yes Section B Chief Complaint: urosepsis Relevant Family History (Specify if Yes): No Relevant Social History: None Present Medications: see Short Stay Collaborative assessment Medical History: Significant History History of Previous Operations: Relevant previous surgery/procedure and date(s) Allergies: Allergies Allergy/AdvReac Type Severity Reaction Status Date / Time cephalexin Allergy Swelling Verified 02/07/21 18:19 ciprofloxacin [From Cipro] Allergy Swelling Verified 02/07/21 18:19 coconut oil Allergy Swelling Verified 10/19/22 01:50 duloxetine [From Cymbalta] Allergy Swelling Verified 02/07/21 18:19 Penicillins Allergy Swelling Verified 02/07/21 18:19 Review of Systems Sugical H&P ROS: Negative: Constitution, Cardiovascular, Respiratory, Neurological, Psychiatric, Hem-Onc, Allergic/Immunologic, Gastrointestinal, Genitourinary, Musculoskeletal, Integumentary, Endocrine and Eyes/Ears/Nose/Throat Exam Surgical H&P Exam: Normal: HEENT, Normal: Heart, Normal: Lungs, Normal: Extremities, Normal: Abdomen, Normal: Skin and Normal: Neurological Plan Diagnosis/Plan: Unchanged (cysto, right stent removal, ureteroscopy, laser litho, basket) I have reviewed the history and physical and performed a pertinent physical examination on my patient. No changes have occurred unless specified. Time Spent With Patient Time: Total time managing care of this patient today ____ minutes.
--- NOTE | 2022-11-07 18:04 | PC.NURSE ---
Ordered dose of 240 mg gentamycin not available in [facility]. Pharmacy contacted and states will mix and bring down abx. Dr Gomez contacted pharmacy and 3 bags of 80mg in 100ml was were pulled from [facility]. Pharmacy brought down 3 bags of 80mg in 100ml approx 10 mins later. The bags brought down by pharmacy were returned to the [facility] p pt label was removed from the bags
--- NOTE | 2022-11-07 18:50 | W.PM.OPN ---
Operative Note Operative Note Date of Service: 11/07/22 Narrative: PreOperative Diagnosis: Right proximal ureteric stone Post Operative Diagnosis: right proximal ureteric stone Procedure: - cystoscopy, right stent removal - right rigid ureteroscopy, laser lithotripsy, stone basketing - right flexible ureteroscopy, laser lithotripsy Surgeon: Dr Jose Alberto Gomez Anesthesia: General Indications for procedure: admitted with right proximal ureteric stone and sepsis. Stent placed. Here for completion procedure. Procedure: After informed consent was verified patient was brought to the operating placed in supine position. Anesthesia was administered per protocol. Patient was placed in modified dorsal lithotomy position and prepped and draped in a sterile fashion. Safety pause time-out and side of surgery confirmed. Antibiotics confirmed Gentamicin. A 22 Luxembourgish cystoscope was inserted per urethra. Bladder was normal in its entirety. Both ureteric orifices were in normal position. Stent emerging from right ureteric orifice. A Sensor guidewire was placed up to the level of the renal pelvis under fluoroscopy. The indwelling stent was removed. The rigid cystoscope was removed. The semi rigid ureteral scope was placed alongside the Sensor guidewire. Stone was encountered in the proximal ureter. Using a 360 micron laser fiber the stone was broken to small pieces. A large portion of the stone moved in antegrade fashion into the renal pelvis. A 1.9 Luxembourgish 0 tip basket was used attempts removed debris from the ureter. The debris broken the basket. The semi rigid ureteroscope was removed. The flexible ureteral scope was placed over the wire into the renal pelvis. The stone was Encountered in the renal pelvis and broken small pieces with laser fiber. using the open-ended catheter the renal pelvis was washed. The open-ended catheter was removed And the wire removed. The bladder was emptied. The patient tolerated the procedure well and was extubated in the operating room, and transferred in stable condition to the recovery area. Pathology: none Drains: none
[2022-11-07] MEDS: Acetaminophen 325 MG TABLET 650 MG PO (20:08)
[2022-11-08] VITALS (7 sets, daily range): BP systolic 104–145; BP diastolic 67–83; PULSE 58–91; RESP 12–20; TEMP 36.3–37.3; O2SAT 90–98; BMI 19.5
[2022-11-08] MEDS: Albuterol/Iprat 2.5/0.5MG 3 ML AMPUL.NEB INHALE ×2 (08:09→15:16)
[2022-11-08] MEDS: Fluticasone/Vilanterol 100/25 BLST.W.DEV 1 PUFF INHALE (08:09)
--- NOTE | 2022-11-08 09:38 | MHC.CM.PN ---
Addendum entered by Rain Suarez RN 11/08/22 11:11: PT'S RAPID COVID POSITIVE, [facility] NOTIFIED AND REPORT PT NEEDS TO BE 5 DAYS ASYMPTOMATIC AND CAN BE RETESTED W/RAPID ON DAY 6 & IF NEG THEY WILL ADMIT PT. Original Note: PT MEDICALLY CLEARED FOR D/C TO [facility] PENDING NEG COVID, COVID REQUESTED AND PT WILL TRANSPORT VIA BLS AT 1PM
[2022-11-08] MEDS: Thiamine HCL 100 MG TABLET PO (09:47)
[2022-11-08] MEDS: Omeprazole 40 MG CAPSULE.DR PO (09:47)
[2022-11-08] MEDS: clonazePAM 0.5 MG TABLET PO ×3 (09:47→22:05)
[2022-11-08] MEDS: Cyanocobalamin (Vitamin B-12) 500 MCG TABLET PO (09:47)
[2022-11-08] MEDS: lamoTRIgine 25 MG TABLET 150 MG PO ×2 (09:47→22:05)
[2022-11-08] MEDS: predniSONE 20 MG TABLET PO (09:47)
[2022-11-08] MEDS: Midodrine HCl 5 MG TABLET PO ×3 (09:47→22:05)
[2022-11-08] MEDS: FLUoxetine HCl 20 MG CAPSULE PO (09:47)
[2022-11-08] MEDS: guaiFENesin DM 100/10/5 ML 5 ML SYRUP 10 ML PO ×3 (09:47→22:05)
[2022-11-08] MEDS: Ascorbic Acid 250 MG TABLET PO (09:47)
[2022-11-08] MEDS: Fluconazole 100 MG TABLET PO (09:48)
--- NOTE | 2022-11-08 10:44 | PM.DS ---
DS: Providers Provider Date of Service: 11/08/22 Date of admission: 10/18/22 23:32 Primary care physician: Eusebio Payton DO, MD Consults: 10/19/22 03:14 Consult to Urology Stat Consulting Provider: Jose Alberto Gomez Reason for consultation: Hydronephrosis with renal and ureteral calculus obstruction Has provider been notified: Yes 10/19/22 20:11 Consult to Wound Care Routine Consulting Provider: Jocy Garza Reason for consultation: appears to have stage 2 on inner aspect of left buttock, treated at [facility] 10/29/22 12:18 Consult to Infectious Diseases Routine Consulting Provider: Iona Garcia Reason for consultation: Leukocytosis, refractory hypotension Has provider been notified: Yes 10/31/22 08:56 Consult to Cardiology Routine Consulting Provider: Santiago Mcintyre Reason for consultation: R-sided HF,. ICU downgrade 11/01/22 08:29 Consult to Gastroenterology Routine Consulting Provider: Yamil Calvo Reason for consultation: persistent anemia s/p ICU course, FOBT + x2 DS: Diagnosis Discharge Diagnosis (1) Right heart failure: Status: Acute (2) Acute respiratory failure with hypoxia: Status: Acute DS: Summary Hospital Course Hospital Course: history of presenting illness Chief Complaint: Hypotension Ms. Davalos is a 51 y.o. female with PMH of Afib, anxiety, asthma, bipolar disorder, bronchitis, complications from gastric bypass surgery, hypokalemia, chronic hypotension on midodrine, migraines, and PTSD. ?She has a MOLST that indicates a modified code status; she would like CPR but does not want intubation, dated 10/02/22. The patient was admitted to [facility] for rehab after a right femoral neck fracture with surgical repair on 10/02/2022. ?Since the surgery she has been using a wheelchair as she is supposed to be nonweightbearing on the right leg.? Prior to her injury she was living alone in an apartment in [place] and ambulated with a rolling walker and help from a [employer]. ?She reports a history of multiple UTIs. She saw Dr. Willingham about a month ago and was told she had 3 small kidney stones. She missed her follow-up appointment due to her injury. She was seen here in our emergency room on 10/10/2022 and treated with Bactrim for a urinary tract infection.? At that time she was also noted to be hypokalemic. Yesterday evening, she was brought in by ambulance for hypotension, fatigue, and weakness. On arrival to the ED, the patient was awake and alert, oriented x 4. She stated that her blood pressure was 60/30 at the fpc and that she had not urinated in over 6 hours. She is prescribed oxycodone, but has not taken that in several days. She stated she does not feel like herself, is cold, has chest pain, and is easily fatigued. SpO2 was 96% on room air, Heart rate 79, blood pressure 70/33, respiratory rate 18. Afebrile. Labs showed WBC 26.8, HGB 7.0, BUN/creat 41/1.6, Sodium 127, Potassium 3.2.? Lactic acid 3.7.? Tbili 2.4, AST 59, ALT 139, Alk Phos 208. COVID-19 and influenza tested negative.? U/A showed 21-50 WBC, largel LE, neg nitrite, 4+ bacti.?Stool occult blood was positive. CT/CT abdomen pelvis showed? a 9 x 4 x 4 mm obstructing proximal right ureteral calculus with hydronephrosis, atelectasis/infiltrate at the left lung base along with a small left pleural effusion,? an enlarged fatty liver, and a large stool burden in the colon. While in the ED, she was given 2 L of saline for fluid resuscitation, 2 units red blood cells, and 5 mg of midodrine. ?She remained hypotensive. ?A central line was placed and she was started on Levophed.? She was given an amp of D50 for a blood sugar of 61.?Dr. Gomez updated on urosepsis with obstructing stone with a? plan for 0800 OR.? hospital course 51yo F with anxiety, bipolar disorder, asthma, gastric bypass surgery, paroxysmal AF, chronic hypotension on midodrine, migraines, PTSD, and recurrent UTIs thought due to nephrolithiasis,admitted to ICU 10/19/22 with septic shock with UTI/bacteremia from obstructing R ureteral stone with hydronephrosis,started on norepi, underwent cystoscopy + R ureteral stent in OR 10/19 blood and urine cultures grew Klebsiella sensitive to levofloxacin,ICU course complicated by precipitous thrombocytopenia due to sepsis, then hypoxic respiratory failure due to cor pulmonale and pneumonia was on HFNC + NRB, then CPAP,aggressively diuresed with furosemide found to have funguria ,question of secretory diarrhea treated with cholestyramine + octreotide now off levofloxacin + norepi, stepped down to [facility] 10/30/22 # acute hypoxic respiratory failure resolved was due to pulmonary edema/ARDS now on room air with stable oxygenation # acute asthma exacerbation with underlying moderate persistent asthma, shortness of breath resolved patient treated with IV Solu Medrol scheduled and as needed updraft treatment , patient feeling better is being discharged home on prednisone schedule updraft and as needed inhalers, recommend to continue all home inhalers, cough medication as needed ? # acute on chronic macrocytic anemia- status post 2 units of packed RBC hematocrit improved from 21.3 -35.4, normal B12 and folate, and iron studies, Seen by Dr. Calvo since there is no evidence of active bleeding no urgent endoscopy is warranted, he recommend outpatient GI follow-up ? Likely anemia due to acute illness, also with possibility of gastritis, neoplasm and angiodysplasia of the GI tract therefore outpatient GI follow-up # severe R-sided HF, no PE; likely acute cor pulmonale due to ARDS from urosepsis, repeat Limited TTE? showed normal right ventricular cavity size and systolic function, suggestive of improved right ventricular ? size and function # chronic hypotension- continue midodrine 5 mg t.i.d. # obstructive uropathy due to R ureterolithiasis- s/p ureteral stent 10/19, followed by removal of stent and lithotripsy on 11/07 , outpatient urology follow-up # urosepsis with Klebsiella bacteremia status post treatment with Levaquin sepsis resolved # recent right hip surgery,? yomi removed by orthopedic service ? # hx paroxysmal atrial fibrillation- was on rivaroxaban as outpt but [id number] is 0 and as such does not need it. # candiduria finished 7 day course of fluconazole - # ELYSE- resolved, suspect was due to prerenal ELYSE/septic ATN # hyperbili - due to congestive hepatopathy, resolved # hypokalemia, hyponatremia and hypophosphatemia resolved # thrombocytopenia resolved, likely due to sepsis # diarrhea- stool studies negative, patient noted to have intermittent diarrhea C diff is negative # bipolar disorder- continue clonazepam, fluoxetine, and lamotrigine, was on multiple other psychiatric medications but she did not receive in house recommend outpatient psychiatric follow-up. Time Spent with Patient Time attestation: Total time managing care of this patient today ____ minutes. Discharge coordination time: Greater than 30 minutes Quality: Safe Use of Opioids Does Pt have an Active Cancer Diagnosis on the Problem List?: No Quality: Stroke Does the patient have a stroke diagnosis?: No Physical Exam Vital Signs: Vital Signs: Last Vital Signs Temp 98.2 F 11/08/22 08:33 Pulse 89 11/08/22 08:33 Resp 12 11/08/22 08:33 BP 104/67 11/08/22 08:33 Pulse Ox 90 L 11/08/22 08:33 O2 Del Method 11/08/22 08:33 O2 Flow Rate 2 11/07/22 19:10 FiO2 45 10/29/22 04:00 BMI result Body Mass Index 19.5 Const: Other: Gen:? Awake alert, in no acute distress . HEENT: sclera anicteric, moist mucus membranes, pallor Neck: supple Lungs:? clear to auscultation,no use of accessory muscles. Heart: regular?rate and rhythm,no murmurs Abd: soft, non-tender, non-distended bowel sounds audible Ext: no edema, Skin: warm/well-perfused , petechial?rash face, neck and arms. Neuro: alert and oriented x3, no focal findings Psych: appropriate affect Discharge Plan Discharge Anticipated Discharge Date/Time: 11/08/22 10:21 Patient Disposition: Xfer Discharge Diagnosis: Acute hypoxic respiratory failure septic shock due to UTI status post right ureteral stent placement with subsequent removal and lithotripsy acute kidney injury acute on chronic macrocytic anemia right-sided heart failure due to ARDS chronic hypotension tayo in urine Referrals: [facility] [Outside] - 1 Day (SHORT TERM REHAB ) Eusebio Payton DO, MD [Primary Care Provider] - 1 Week Discharge Medications: New ipratropium-albuterol 0.5 mg-3 mg(2.5 mg base)/3 mL Solution For Nebulization 3 ml inhalation QID Qty: 90 0RF prednisone 20 mg Tablet 20 mg PO DAILY Qty: 3 0RF Continued lamotrigine 150 mg Tablet 150 mg PO BID acetaminophen 325 mg Tablet 650 mg PO Q6H PRN (Reason: Pain) sucralfate 100 mg/mL Suspension 10 ml PO QID Rx Instructions: swish in mouth and swallow; use after food/drink ondansetron HCl 4 mg Tablet 4 mg PO Q8H PRN (Reason: Nausea) clonazepam 1 mg Tablet 1 mg PO TID midodrine 5 mg Tablet 5 mg PO TID Rx Instructions: do not give last dose of day after 6PM or within 4 hrs of bedtime thiamine HCl (vitamin B1) 100 mg Tablet 100 mg PO DAILY omeprazole 40 mg Capsule,Delayed Release(Dr/Ec) 40 mg PO DAILY cyanocobalamin (vitamin B-12) 500 mcg Tablet 500 mcg PO DAILY ascorbic acid (vitamin C) 250 mg Tablet 250 mg PO DAILY fluoxetine 20 mg Tablet 20 mg PO DAILY fluticasone propion-salmeterol [Wixela Inhub] 500-50 mcg/dose Blister With Device 1 inh INHALATION BID calcium carbonate 500 mg calcium (1,250 mg) Tablet,Chewable 1,000 mg PO BID albuterol sulfate 90 mcg/actuation Hfa Aerosol Inhaler 2 puff INHALATION Q6H PRN (Reason: Wheezing) fluticasone propionate 50 mcg/actuation [place],Suspension 1 spray INTRANASAL DAILY Rx Instructions: administer into each nostril cholecalciferol (vitamin D3) 1,250 mcg (50,000 unit) Tablet 1,250 mcg PO WE Discontinued topiramate 25 mg Tablet 25 mg PO DAILY topiramate 25 mg Tablet 75 mg PO BEDTIME olanzapine [Zyprexa] 2.5 mg Tablet 2.5 mg PO BEDTIME PRN (Reason: Anxiety) risperidone 2 mg Tablet 2 mg PO BEDTIME risperidone [Risperdal] 1 mg Tablet 1 mg PO DAILY Probiotic Formula (inulin) 1 billion-250 cell-mg Capsule 1 cap PO DAILY Xarelto 20 mg Tablet 20 mg PO DAILY@1700 Rx Instructions: must administer with evening meal Discharge Orders: Discharge Order (Routine); Ordered 11/08/22 Ordered By: Aleja Austin Diet: Advance to usual diet Activity on Discharge: As tolerated Stand Alone Forms: Patient Portal Discharge page Care Plan Goals: paroxysmal atrial fibrillation does not need anticoagulation sepsis/bacteremia resolved finished course of antibiotics bipolar disorder current to new current medication follow-up with Psychiatry no acute issues electrolyte abnormalities resolved asthma exacerbation improved take prednisone for few more days use updraft treatment q.i.d. scheduled for 3-5 days and then as needed Health Concerns: asthma/bipolar disorder take all medications as prescribed Plan of Treatment: outpatient follow-up with primary care physician and Psychiatry Assessment: as above
[2022-11-08 11:01] LABS: COVID-19 Test Positive (Negative); IDNOW Serial# 16C4AD1C
--- NOTE | 2022-11-08 11:05 | HO.POSTANES ---
Post Anesthesia Evaluation Post Anesthesia Evaluation Vital Signs: Vital Signs Temp Pulse Resp BP Pulse Ox O2 Del Method 11/08/22 08:33 98.2 F 89 12 104/67 90 L Room Air 11/08/22 08:10 58 18 11/07/22 23:46 97.7 F 64 18 115/70 90 L Room Air Anesthesia: General LMA Mental Status: Awake Pain Control: Satisfactory Nausea/Vomiting: None Hydration: Adequate Anesthesia-Related Issues: No Anes. Related Issues
--- NOTE | 2022-11-08 12:30 | HO.PM.IMPN ---
Subjective Subjective Date of Service: 11/08/22 Interval History: feeling better offers no acute complaints, no chest pain, no shortness of breath, underwent cystoscopy with removal of right stent and lithotripsy tolerated procedure well denies abdominal or back pain. Review of Systems General no headache, no dizziness, no fever chills. CVS no chest pain, no palpitation. Respiratory no cough, no sob Gastrointestinal no nausea, no vomiting, no abdominal pain Review of Systems: Yes all other systems are reviewed and are negative Physical Exam Vital Signs: Vital Signs: Last Vital Signs Temp 98.2 F 11/08/22 08:33 Pulse 89 11/08/22 08:33 Resp 12 11/08/22 08:33 BP 104/67 11/08/22 08:33 Pulse Ox 90 L 11/08/22 08:33 O2 Del Method 11/08/22 08:33 O2 Flow Rate 2 11/07/22 19:10 FiO2 45 10/29/22 04:00 BMI result Body Mass Index 19.5 Const: Other: Gen:? Awake alert, in no acute distress . HEENT: sclera anicteric, moist mucus membranes Neck: supple Lungs:? clear to auscultation,no use of accessory muscles. Heart: regular?rate and rhythm,no murmurs Abd: soft, non-tender, non-distended bowel sounds audible Ext: no edema, Skin: warm/well-perfused , petechial?rash face, neck and arms. Neuro: alert and oriented x3, no focal findings Psych: appropriate affect Objective Data Active Medications Albuterol Sulfate (Albuterol Sulfate (0.083%) 2.5 Mg/3 Ml Vial.Neb) 2.5 mg INHALE ONCE PRN PRN Reason: Wheezing Albuterol/Ipratropium (Albuterol/Iprat 2.5/0.5mg 3 Ml Ampul.Neb) 3 ml INHALE RQ4H WHILE AWAKE [facility] Last Admin: 11/08/22 11:18 Dose: Not Given Documented By: LEENARICC Non-Admin Reason: pt not in room Ascorbic Acid (Ascorbic Acid 250 Mg Tablet) 250 mg PO DAILY [facility] Last Admin: 11/08/22 09:47 Dose: 250 mg Documented By: JOSE-AMANDAFA Clonazepam (Clonazepam 0.5 Mg Tablet) 0.5 mg PO TID [facility] Last Admin: 11/08/22 09:47 Dose: 0.5 mg Documented By: JOSE-KD Cyanocobalamin (Cyanocobalamin (Vitamin B-12) 500 Mcg Tablet) 500 mcg PO DAILY [facility] Last Admin: 11/08/22 09:47 Dose: 500 mcg Documented By: UMA Fluconazole (Fluconazole 100 Mg Tablet) 100 mg PO DAILY [facility] Last Admin: 11/08/22 09:48 Dose: 100 mg Documented By: UMA Fluoxetine HCl (Fluoxetine Hcl 20 Mg Capsule) 20 mg PO DAILY [facility] Last Admin: 11/08/22 09:47 Dose: 20 mg Documented By: UMA Fluticasone/Vilanterol (Fluticasone/Vilanterol 100/25 Blst.W.Dev) 1 puff INHALE RDAILY [facility] Last Admin: 11/08/22 08:09 Dose: 1 puff Documented By: ANGELI Guaifenesin/Dextromethorphan (Guaifenesin Dm 100/10/5 Ml 5 Ml Syrup) 10 ml PO TID [facility] Last Admin: 11/08/22 09:47 Dose: 10 ml Documented By: UMA Lamotrigine (Lamotrigine 25 Mg Tablet) 150 mg PO BID [facility] Last Admin: 11/08/22 09:47 Dose: 150 mg Documented By: UMA Midodrine (Midodrine Hcl 5 Mg Tablet) 5 mg PO TID [facility] Last Admin: 11/08/22 09:47 Dose: 5 mg Documented By: UMA Omeprazole (Omeprazole 40 Mg Capsule.) 40 mg PO DAILY [facility] Last Admin: 11/08/22 09:47 Dose: 40 mg Documented By: UMA Ondansetron HCl (Ondansetron Hcl 4 Mg/2 Ml Vial) 4 mg IVPUSH Q6H PRN PRN Reason: Nausea Last Admin: 11/04/22 18:28 Dose: 4 mg Documented By: PHABONILLAYM Prednisone (Prednisone 20 Mg Tablet) 20 mg PO DAILY [facility] Last Admin: 11/08/22 09:47 Dose: 20 mg Documented By: UMA Thiamine HCl (Thiamine Hcl 100 Mg Tablet) 100 mg PO DAILY [facility] Last Admin: 11/08/22 09:47 Dose: 100 mg Documented By: UMA Labs CBC & Chem 7: 11/02/22 06:51 11/02/22 06:51 Labs: Laboratory Results - last 24 hr 11/08/22 10:40 COVID-19 (ANJUM) Positive A COVID-19 Clin Com See Note Assessment and Plan (1) Right heart failure: Status: Acute (2) Acute respiratory failure with hypoxia: Status: Acute Plan 51yo F with anxiety, bipolar disorder, asthma, gastric bypass surgery, paroxysmal AF, chronic hypotension on midodrine, migraines, PTSD, and recurrent UTIs thought due to nephrolithiasis admitted to ICU 10/19/22 with septic shock with UTI/bacteremia from obstructing R ureteral stone with hydronephrosis started on norepi, underwent cystoscopy + R ureteral stent in [place] 10/19 blood and urine cultures grew Klebsiella sensitive to levofloxacin ICU course complicated by precipitous thrombocytopenia due to sepsis, then hypoxic respiratory failure due to cor pulmonale and pneumonia was on HFNC + NRB, then CPAP aggressively diuresed with furosemide found to have funguria question of secretory diarrhea treated with cholestyramine + octreotide now off levofloxacin + norepi stepped down to [facility] 10/30/22 # COVID-19 infection diagnosed today, test was obtained since patient was scheduled for rehab discharged, patient is asymptomatic no hypoxia on prednisone for asthma exacerbation continue supportive care. # acute hypoxic respiratory failure - resolved was due to pulmonary edema/ARDS now on room air finger oximetry 90% # acute asthma exacerbation with underlying moderate persistent asthma Resolved,continue schedule updraft treatment, po prednisone, chest x-ray showed diffuse bilateral multi lobar airspace disease unchanged from prior imaging study, continue cough medication. # macrocytic anemia - status post 2 units of packed RBC hematocrit improved from 21.3 -35.4, normal B12 and folate, normal iron studies Seen by Dr. Calvo since there is no evidence of active bleeding no urgent endoscopy is warranted, recommend outpatient GI follow-up to rule out gastritis neoplasm or angiodysplasia Likely anemia is due to acute illness. # severe R-sided HF- no PE; likely acute cor pulmonale due to ARDS from urosepsis,limited TTE showed normal right ventricular cavity size and systolic function, suggestive of improved right ventricular size and function # chronic hypotension - continue midodrine 5 mg t.i.d. # obstructive uropathy due to R ureterolithiasis - s/p ureteral stent 10/19, underwent repeat cystoscopy on 11/07 with removal of stent and lithotripsy # urosepsis with Klebsiella bacteremia - s/p levofloxacin course # recent right hip surgery, yomi removed by orthopedic service # hx paroxysmal atrial fibrillation - was on rivaroxaban as outpt but [id number] is 0 and as such does not need it. # candiduria - fluconazole PO, d#07/02 # ELYSE - resolved, suspect was due to prerenal ELYSE/septic ATN # hyperbili - due to congestive hepatopathy, resolved # hypoK, hyponatremia, hypophosphatemia repleted # metabolic alkalosis - resolved # diarrhea - stool studies negative, patient noted to have intermittent diarrhea C diff is negative,as needed Imodium # bipolar disorder - continue clonazepam, fluoxetine, and lamotrigine # VTE ppx: SCDs # dispo: was scheduled to be discharged to rehab COVID test came back positive therefore patient will remain in house with isolation will repeat COVID test in 6 days if negative and will be discharged to rehab In my clinical judgment, the patient requires continued inpatient hospitalization for COVID-19 test positive on . Time Spent With Patient Time: Total time managing care of this patient today ____ minutes. Quality Stroke Does the patient have a stroke diagnosis?: No VTE Prior VTE?: No VTE Risk Level:: Medical - moderate - high VTE Device Contraindication: N/A - Device Ordered VTE Drug Contraindication: N/A - Med Ordered
[2022-11-08] MEDS: Loperamide HCl 2 MG CAPSULE PO (17:19)
[2022-11-09] VITALS (10 sets, daily range): BP systolic 110–125; BP diastolic 64–79; PULSE 61–89; RESP 16–20; TEMP 36.3–37.8; O2SAT 92–98; BMI 19.1
[2022-11-09] MEDS: Albuterol/Iprat 2.5/0.5MG 3 ML AMPUL.NEB INHALE ×4 (08:34→20:18)
[2022-11-09] MEDS: Fluticasone/Vilanterol 100/25 BLST.W.DEV 1 PUFF INHALE (08:34)
[2022-11-09] MEDS: guaiFENesin DM 100/10/5 ML 5 ML SYRUP 10 ML PO ×3 (09:17→21:21)
[2022-11-09] MEDS: lamoTRIgine 25 MG TABLET 150 MG PO ×2 (09:17→21:20)
[2022-11-09] MEDS: Ascorbic Acid 250 MG TABLET PO (09:18)
[2022-11-09] MEDS: Loperamide HCl 2 MG CAPSULE PO ×3 (09:18→21:33)
[2022-11-09] MEDS: Omeprazole 40 MG CAPSULE.DR PO (09:18)
[2022-11-09] MEDS: Cyanocobalamin (Vitamin B-12) 500 MCG TABLET PO (09:18)
[2022-11-09] MEDS: Fluconazole 100 MG TABLET PO (09:18)
[2022-11-09] MEDS: clonazePAM 0.5 MG TABLET PO ×3 (09:18→21:20)
[2022-11-09] MEDS: FLUoxetine HCl 20 MG CAPSULE PO (09:18)
[2022-11-09] MEDS: Midodrine HCl 5 MG TABLET PO ×3 (09:18→21:20)
[2022-11-09] MEDS: Thiamine HCL 100 MG TABLET PO (09:18)
[2022-11-09] MEDS: predniSONE 20 MG TABLET PO (09:18)
--- NOTE | 2022-11-09 11:24 | P.PNIM_ITS ---
Subjective Subjective Date of Service: 11/09/22 Interval History: Seen in follow up for COVID-19, acute asthma exacerbation with acute hypoxic respiratory failure Interval history: Diagnosed with COVID-19 yesterday incidentally as test was obtained for pt discharge to [facility], at that time asymptomatic. Now reporting productive cough with yellow sputum, wheezing, and SOB. 1 episode loose stool. No n/v. Review of Systems General: No fevers, malaise, unintentional weight loss HEENT: No blurred vision, diplopia. No sore throat, nasal congestion, rhinorrhea, sinus pain, ear pain Cardiovascular: No chest pain, palpitations, or leg edema Respiratory: + shortness of breath, +wheezing, +cough GI: +diarrhea. No abdominal pain, nausea, vomiting, constipation, melena, hematochezia : No dysuria, hematuria MSK: No myalgia, back pain Neuro: No headaches, weakness, paresthesias Skin: No rashes or lesions Physical Exam Vital Signs: Vital Signs: Last Vital Signs Temp 98.4 F 11/09/22 07:44 Pulse 61 11/09/22 08:35 Resp 16 11/09/22 08:35 BP 123/79 11/09/22 07:44 Pulse Ox 97 11/09/22 07:44 O2 Del Method 11/09/22 07:44 O2 Flow Rate 2 11/09/22 07:44 FiO2 45 10/29/22 04:00 BMI result Body Mass Index 19.1 Constitutional - Awake and Alert, No apparent distress Eyes - PERRLA, EOMI Cardiovascular - S1S2, RRR, No edema Respiratory - Normal lung expansion, Normal respiratory effort, No respiratory distress on 2L supp O2 via NC, Scattered wheezes bilaterally Gastrointestinal - NT / ND; +BS; No rebound or guarding Extremities - no calf tenderness bilaterally, no swelling Skin - Warm/Dry Neurological - Alert & oriented x3 Psychological - Appropriate affect Objective Data Active Medications Albuterol Sulfate (Albuterol Sulfate (0.083%) 2.5 Mg/3 Ml Vial.Neb) 2.5 mg INHALE ONCE PRN PRN Reason: Wheezing Albuterol/Ipratropium (Albuterol/Iprat 2.5/0.5mg 3 Ml Ampul.Neb) 3 ml INHALE RQID [facility] Last Admin: 11/09/22 08:34 Dose: 3 ml Documented By: ANGELI Ascorbic Acid (Ascorbic Acid 250 Mg Tablet) 250 mg PO DAILY [facility] Last Admin: 11/09/22 09:18 Dose: 250 mg Documented By: CTORRElise Clonazepam (Clonazepam 0.5 Mg Tablet) 0.5 mg PO TID [facility] Last Admin: 11/09/22 09:18 Dose: 0.5 mg Documented By: CTORRElise Cyanocobalamin (Cyanocobalamin (Vitamin B-12) 500 Mcg Tablet) 500 mcg PO DAILY [facility] Last Admin: 11/09/22 09:18 Dose: 500 mcg Documented By: ANAHI.[email or web address] Fluconazole (Fluconazole 100 Mg Tablet) 100 mg PO DAILY [facility] Last Admin: 11/09/22 09:18 Dose: 100 mg Documented By: CTORRElise Fluoxetine HCl (Fluoxetine Hcl 20 Mg Capsule) 20 mg PO DAILY [facility] Last Admin: 11/09/22 09:18 Dose: 20 mg Documented By: CTORRElise Fluticasone/Vilanterol (Fluticasone/Vilanterol 100/25 Blst.W.Dev) 1 puff INHALE RDAILY [facility] Last Admin: 11/09/22 08:34 Dose: 1 puff Documented By: ANGELI Guaifenesin/Dextromethorphan (Guaifenesin Dm 100/10/5 Ml 5 Ml Syrup) 10 ml PO TID [facility] Last Admin: 11/09/22 09:17 Dose: 10 ml Documented By: CTORRElise Lamotrigine (Lamotrigine 25 Mg Tablet) 150 mg PO BID [facility] Last Admin: 11/09/22 09:17 Dose: 150 mg Documented By: CTORRElise Loperamide HCl (Loperamide Hcl 2 Mg Capsule) 2 mg PO Q6H PRN PRN Reason: Diarrhea Last Admin: 11/09/22 09:18 Dose: 2 mg Documented By: CTORRElise Midodrine (Midodrine Hcl 5 Mg Tablet) 5 mg PO TID [facility] Last Admin: 11/09/22 09:18 Dose: 5 mg Documented By: CTORRElise Omeprazole (Omeprazole 40 Mg Capsule.) 40 mg PO DAILY [facility] Last Admin: 11/09/22 09:18 Dose: 40 mg Documented By: CTORRElise Ondansetron HCl (Ondansetron Hcl 4 Mg/2 Ml Vial) 4 mg IVPUSH Q6H PRN PRN Reason: Nausea Last Admin: 11/04/22 18:28 Dose: 4 mg Documented By: MACIEJ Prednisone (Prednisone 20 Mg Tablet) 20 mg PO DAILY [facility] Last Admin: 11/09/22 09:18 Dose: 20 mg Documented By: CARMEN Thiamine HCl (Thiamine Hcl 100 Mg Tablet) 100 mg PO DAILY [facility] Last Admin: 11/09/22 09:18 Dose: 100 mg Documented By: CARMEN Labs CBC & Chem 7: 11/02/22 06:51 11/02/22 06:51 Assessment and Plan (1) Right heart failure: Status: Acute (2) Acute respiratory failure with hypoxia: Status: Acute (3) COVID-19: Status: Acute Plan 51yo F with anxiety, bipolar disorder, asthma, gastric bypass surgery, paroxysmal AF, chronic hypotension on midodrine, migraines, PTSD, and recurrent UTIs thought due to nephrolithiasis admitted to ICU 10/19/22 with septic shock with UTI/bacteremia from obstructing R ureteral stone with hydronephrosis started on norepi, underwent cystoscopy + R ureteral stent in [place] 10/19 blood and urine cultures grew Klebsiella sensitive to levofloxacin ICU course complicated by precipitous thrombocytopenia due to sepsis, then hypoxic respiratory failure due to cor pulmonale and pneumonia was on HFNC + NRB, then CPAP aggressively diuresed with furosemide found to have funguria question of secretory diarrhea treated with cholestyramine + octreotide now off levofloxacin + norepi stepped down to [facility] [place] # COVID-19 infection diagnosed = 11/08 test was obtained since patient was scheduled for rehab discharged -Continue PO prednisone for asthma exacerbation -No hypoxia- not a candidate for IV remdesivir -continue supportive care. # acute hypoxic respiratory failure - resolved was due to pulmonary edema/ARDS now on room air finger oximetry 90% # acute asthma exacerbation with underlying moderate persistent asthma- resolved - Scattered wheezes, no recurrent exacerbation - Continue duonebs sienna, albuterol prn -Continue PO prednisone - chest x-ray 11/04 showed diffuse bilateral multi lobar airspace disease unchanged from prior imaging study -continue cough medication. # macrocytic anemia - status post 2 units of packed RBC hematocrit improved from 21.3 -35.4, normal B12 and folate, normal iron studies Seen by Dr. Calvo since there is no evidence of active bleeding no urgent endoscopy is warranted, recommend outpatient GI follow-up to rule out gastritis neoplasm or angiodysplasia Likely anemia is due to acute illness. # severe R-sided HF- no PE; likely acute cor pulmonale due to ARDS from urosepsis,limited TTE showed normal right ventricular cavity size and systolic function, suggestive of improved right ventricular size and function # chronic hypotension - continue midodrine 5 mg t.i.d. # obstructive uropathy due to R ureterolithiasis - s/p ureteral stent 10/19, underwent repeat cystoscopy on 11/07 with removal of stent and lithotripsy # urosepsis with Klebsiella bacteremia - s/p levofloxacin course # recent right hip surgery, yomi removed by orthopedic service # hx paroxysmal atrial fibrillation - was on rivaroxaban as outpt but [id number] ASc is 0 and as such does not need it. # candiduria - fluconazole PO, d#07/02 # ELYSE - resolved, suspect was due to prerenal ELYSE/septic ATN # hyperbili - due to congestive hepatopathy, resolved # hypoK, hyponatremia, hypophosphatemia repleted # metabolic alkalosis - resolved # diarrhea - stool studies negative, patient noted to have intermittent diarrhea C diff is negative,as needed Imodium # bipolar disorder - continue clonazepam, fluoxetine, and lamotrigine # VTE ppx: SCDs # dispo: was scheduled to be discharged to rehab COVID test came back positive therefore patient will remain in house with isolation will repeat COVID test in 6 days if negative and will be discharged to rehab In my clinical judgment, the patient requires continued inpatient hospitalization for COVID-19 test positive on awaiting placement to [facility]. Time Spent With Patient Time: Total time managing care of this patient today 25 minutes. Quality Stroke Does the patient have a stroke diagnosis?: No VTE Prior VTE?: No VTE Risk Level:: Medical - moderate - high VTE Device Contraindication: N/A - Device Ordered VTE Drug Contraindication: N/A - Med Ordered
[2022-11-10] VITALS (11 sets, daily range): BP systolic 112–142; BP diastolic 64–91; PULSE 61–78; RESP 16–19; TEMP 36.2–37.2; O2SAT 93–98
[2022-11-10] MEDS: Albuterol/Iprat 2.5/0.5MG 3 ML AMPUL.NEB INHALE ×3 (08:22→20:06)
[2022-11-10] MEDS: Fluticasone/Vilanterol 100/25 BLST.W.DEV 1 PUFF INHALE (08:23)
[2022-11-10] MEDS: lamoTRIgine 25 MG TABLET 150 MG PO ×2 (09:05→20:17)
[2022-11-10] MEDS: guaiFENesin DM 100/10/5 ML 5 ML SYRUP 10 ML PO ×3 (09:05→20:18)
[2022-11-10] MEDS: Omeprazole 40 MG CAPSULE.DR PO (09:06)
[2022-11-10] MEDS: Thiamine HCL 100 MG TABLET PO (09:06)
[2022-11-10] MEDS: clonazePAM 0.5 MG TABLET PO ×3 (09:06→20:16)
[2022-11-10] MEDS: Fluconazole 100 MG TABLET PO (09:06)
[2022-11-10] MEDS: FLUoxetine HCl 20 MG CAPSULE PO (09:06)
[2022-11-10] MEDS: Cyanocobalamin (Vitamin B-12) 500 MCG TABLET PO (09:06)
[2022-11-10] MEDS: Midodrine HCl 5 MG TABLET PO ×2 (09:06→15:19)
[2022-11-10] MEDS: Loperamide HCl 2 MG CAPSULE PO ×2 (09:06→15:19)
[2022-11-10] MEDS: Ascorbic Acid 250 MG TABLET PO (09:06)
[2022-11-10] MEDS: predniSONE 20 MG TABLET PO (09:07)
--- NOTE | 2022-11-10 13:31 | MHC.CM.PN ---
Patient's exit covid was (+) on 11/08/2022; Per [facility], if Patient tests (-) on day 6 (11/13/2022) they may be able to consider for admission there. CM will follow.
--- NOTE | 2022-11-10 15:51 | HO.PM.IMPN ---
Subjective Subjective Date of Service: 11/10/22 Interval History: Seen in follow up for COVID-19, acute asthma exacerbation with acute hypoxic respiratory failure Feeling better Physical Exam Vital Signs: Vital Signs: Last Vital Signs Temp 98.2 F 11/10/22 12:00 Pulse 78 11/10/22 12:00 Resp 17 11/10/22 12:00 BP 138/88 11/10/22 12:00 Pulse Ox 98 11/10/22 15:00 O2 Del Method 11/10/22 15:00 O2 Flow Rate 2 11/10/22 07:38 FiO2 45 10/29/22 04:00 BMI result Body Mass Index 20.0 Appearing in no acute distress lung sounds are clear to auscultation heart regular rate rhythm, clear S1, S2 positive bowel sounds, abdomen is soft, nontender neuro patient is alert x3, no focal deficits Objective Data Active Medications Albuterol Sulfate (Albuterol Sulfate (0.083%) 2.5 Mg/3 Ml Vial.Neb) 2.5 mg INHALE ONCE PRN PRN Reason: Wheezing Albuterol/Ipratropium (Albuterol/Iprat 2.5/0.5mg 3 Ml Ampul.Neb) 3 ml INHALE RQID [facility] Last Admin: 11/10/22 11:42 Dose: Not Given Documented By: CELINE Non-Admin Reason: Patient Asleep Ascorbic Acid (Ascorbic Acid 250 Mg Tablet) 250 mg PO DAILY [facility] Last Admin: 11/10/22 09:06 Dose: 250 mg Documented By: CARMEN Clonazepam (Clonazepam 0.5 Mg Tablet) 0.5 mg PO TID [facility] Last Admin: 11/10/22 15:19 Dose: 0.5 mg Documented By: CARMEN Cyanocobalamin (Cyanocobalamin (Vitamin B-12) 500 Mcg Tablet) 500 mcg PO DAILY [facility] Last Admin: 11/10/22 09:06 Dose: 500 mcg Documented By: CARMEN Fluconazole (Fluconazole 100 Mg Tablet) 100 mg PO DAILY [facility] Last Admin: 11/10/22 09:06 Dose: 100 mg Documented By: CARMEN Fluoxetine HCl (Fluoxetine Hcl 20 Mg Capsule) 20 mg PO DAILY [facility] Last Admin: 11/10/22 09:06 Dose: 20 mg Documented By: CARMEN Fluticasone/Vilanterol (Fluticasone/Vilanterol 100/25 Blst.W.Dev) 1 puff INHALE RDAILY [facility] Last Admin: 11/10/22 08:23 Dose: 1 puff Documented By: CELINE Guaifenesin/Dextromethorphan (Guaifenesin Dm 100/10/5 Ml 5 Ml Syrup) 10 ml PO TID [facility] Last Admin: 11/10/22 15:19 Dose: 10 ml Documented By: CTORRElsie Lamotrigine (Lamotrigine 25 Mg Tablet) 150 mg PO BID [facility] Last Admin: 11/10/22 09:05 Dose: 150 mg Documented By: CTORRElise Loperamide HCl (Loperamide Hcl 2 Mg Capsule) 2 mg PO Q6H PRN PRN Reason: Diarrhea Last Admin: 11/10/22 15:19 Dose: 2 mg Documented By: CTORRElise Midodrine (Midodrine Hcl 5 Mg Tablet) 5 mg PO TID [facility] Last Admin: 11/10/22 15:19 Dose: 5 mg Documented By: CTAAORN Omeprazole (Omeprazole 40 Mg Capsule.Dr) 40 mg PO DAILY [facility] Last Admin: 11/10/22 09:06 Dose: 40 mg Documented By: CARMEN Ondansetron HCl (Ondansetron Hcl 4 Mg/2 Ml Vial) 4 mg IVPUSH Q6H PRN PRN Reason: Nausea Last Admin: 11/04/22 18:28 Dose: 4 mg Documented By: MACIEJ Prednisone (Prednisone 20 Mg Tablet) 20 mg PO DAILY [facility] Last Admin: 11/10/22 09:07 Dose: 20 mg Documented By: CARMEN Thiamine HCl (Thiamine Hcl 100 Mg Tablet) 100 mg PO DAILY [facility] Last Admin: 11/10/22 09:06 Dose: 100 mg Documented By: CARMEN Labs CBC & Chem 7: 11/02/22 06:51 11/02/22 06:51 Assessment and Plan (1) Right heart failure: Status: Acute (2) Acute respiratory failure with hypoxia: Status: Acute (3) COVID-19: Status: Acute Plan 51yo F with anxiety, bipolar disorder, asthma, gastric bypass surgery, paroxysmal AF, chronic hypotension on midodrine, migraines, PTSD, and recurrent UTIs thought due to nephrolithiasis admitted to ICU 10/19/22 with septic shock with UTI/bacteremia from obstructing R ureteral stone with hydronephrosis. Treated for hypotension. status post cystoscopy and right ureteral s Course complicated by thrombocytopenia due to sepsis with hypoxic respiratory failure due to cor pulmonale and pneumonia. Treated with high-flow nasal cannula and non-rebreather as well as CPAP. Aggressively diuresed with Lasix found to have funk urea. Transferred to medical floor on 10/30/22 COVID-19 Diagnosed just prior to discharge Asymptomatic Will be discharged to rehab after quarantine period Acute hypoxic respiratory failure secondary to ARDS Resolved Acute asthma exacerbation with history of moderate persistent asthma On prednisone Continue DuoNebs Macrocytic anemia Status post 2 knee units of packed red blood cells Normal B12, folate and iron studies hypotension Chronic Continue midodrine Klebsiella UTI tree Darby Status post Levaquin Paroxysmal atrial fibrillation Previously on anticoagulation Stopped due to normal Matteo Vasc score Candiduria Started on fluconazole Total 10 day treatment ELYSE Pre renal, septic ATN Resolved diarrhea Stool studies negative Imodium as needed sign Mental health Continue home medications DVT prophylaxis with med compression was Attending Dr. Brannon Full code In my clinical judgment, the patient requires continued inpatient hospitalization for COVID-19 test positive on awaiting placement to [facility]. Time Spent With Patient Time: Total time managing care of this patient today ____ minutes. Quality Stroke Does the patient have a stroke diagnosis?: No VTE Prior VTE?: No VTE Risk Level:: Medical - moderate - high VTE Device Contraindication: N/A - Device Ordered VTE Drug Contraindication: N/A - Med Ordered
[2022-11-11] VITALS (11 sets, daily range): BP systolic 117–166; BP diastolic 65–110; PULSE 65–89; RESP 16–20; TEMP 36.4–37.1; O2SAT 90–98; BMI 19.5
[2022-11-11] MEDS: Albuterol/Iprat 2.5/0.5MG 3 ML AMPUL.NEB INHALE ×3 (08:35→20:25)
[2022-11-11] MEDS: Fluticasone/Vilanterol 100/25 BLST.W.DEV 1 PUFF INHALE (08:35)
[2022-11-11] MEDS: predniSONE 20 MG TABLET PO (11:21)
[2022-11-11] MEDS: guaiFENesin DM 100/10/5 ML 5 ML SYRUP 10 ML PO ×3 (11:21→22:20)
[2022-11-11] MEDS: Omeprazole 40 MG CAPSULE.DR PO (11:21)
[2022-11-11] MEDS: lamoTRIgine 25 MG TABLET 150 MG PO ×2 (11:22→22:20)
[2022-11-11] MEDS: Thiamine HCL 100 MG TABLET PO (11:23)
[2022-11-11] MEDS: clonazePAM 0.5 MG TABLET PO ×3 (11:23→22:20)
[2022-11-11] MEDS: FLUoxetine HCl 20 MG CAPSULE PO (11:23)
[2022-11-11] MEDS: Midodrine HCl 5 MG TABLET PO ×3 (11:23→22:20)
[2022-11-11] MEDS: Cyanocobalamin (Vitamin B-12) 500 MCG TABLET PO (11:23)
[2022-11-11] MEDS: Ascorbic Acid 250 MG TABLET PO (11:23)
[2022-11-11] MEDS: ondansetron HCL 4 MG/2 ML VIAL IVPUSH ×2 (11:27→22:28)
[2022-11-11] MEDS: Loperamide HCl 2 MG CAPSULE PO (12:00)
--- NOTE | 2022-11-11 12:48 | P.PNIM_ITS ---
Subjective Subjective Date of Service: 11/11/22 Interval History: Seen in follow up for COVID-19, acute asthma exacerbation with acute hypoxic respiratory failure Feeling better Physical Exam Vital Signs: Vital Signs: Last Vital Signs Temp 97.6 F 11/11/22 12:00 Pulse 82 11/11/22 12:00 Resp 16 11/11/22 12:00 BP 138/79 11/11/22 12:12 Pulse Ox 97 11/11/22 12:00 O2 Del Method 11/11/22 12:00 O2 Flow Rate 2 11/10/22 07:38 FiO2 45 10/29/22 04:00 BMI result Body Mass Index 19.5 Appearing in no acute distress lung sounds are clear to auscultation heart regular rate rhythm, clear S1, S2 positive bowel sounds, abdomen is soft, nontender neuro patient is alert x3, no focal deficits Objective Data Active Medications Albuterol Sulfate (Albuterol Sulfate (0.083%) 2.5 Mg/3 Ml Vial.Neb) 2.5 mg IN RAHMAN ONCE PRN PRN Reason: Wheezing Albuterol/Ipratropium (Albuterol/Iprat 2.5/0.5mg 3 Ml Ampul.Neb) 3 ml INHALE RQID [facility] Last Admin: 11/11/22 12:06 Dose: Not Given Documented By: MEAGAN Non-Admin Reason: Patient Refused Ascorbic Acid (Ascorbic Acid 250 Mg Tablet) 250 mg PO DAILY [facility] Last Admin: 11/11/22 11:23 Dose: 250 mg Documented By: LOUANN Clonazepam (Clonazepam 0.5 Mg Tablet) 0.5 mg PO TID [facility] Last Admin: 11/11/22 11:23 Dose: 0.5 mg Documented By: LOUANN Cyanocobalamin (Cyanocobalamin (Vitamin B-12) 500 Mcg Tablet) 500 mcg PO DAILY [facility] Last Admin: 11/11/22 11:23 Dose: 500 mcg Documented By: LOUANN Fluoxetine HCl (Fluoxetine Hcl 20 Mg Capsule) 20 mg PO DAILY [facility] Last Admin: 11/11/22 11:23 Dose: 20 mg Documented By: LOUANN Fluticasone/Vilanterol (Fluticasone/Vilanterol 100/25 Blst.W.Dev) 1 puff INHALE RDAILY [facility] Last Admin: 11/11/22 08:35 Dose: 1 puff Documented By: MEAGAN Guaifenesin/Dextromethorphan (Guaifenesin Dm 100/10/5 Ml 5 Ml Syrup) 10 ml PO TID [facility] Last Admin: 11/11/22 11:21 Dose: 10 ml Documented By: LOUANN Lamotrigine (Lamotrigine 25 Mg Tablet) 150 mg PO BID [facility] Last Admin: 11/11/22 11:22 Dose: 150 mg Documented By: LOUANN Loperamide HCl (Loperamide Hcl 2 Mg Capsule) 2 mg PO Q6H PRN PRN Reason: Diarrhea Last Admin: 11/11/22 12:00 Dose: 2 mg Documented By: LOUANN Midodrine (Midodrine Hcl 5 Mg Tablet) 5 mg PO TID [facility] Last Admin: 11/11/22 11:23 Dose: 5 mg Documented By: LOUANN Omeprazole (Omeprazole 40 Mg Capsule.Dr) 40 mg PO DAILY [facility] Last Admin: 11/11/22 11:21 Dose: 40 mg Documented By: LOUANN Ondansetron HCl (Ondansetron Hcl 4 Mg/2 Ml Vial) 4 mg IVPUSH Q6H PRN PRN Reason: Nausea Last Admin: 11/11/22 11:27 Dose: 4 mg Documented By: LOUANN Prednisone (Prednisone 20 Mg Tablet) 20 mg PO DAILY [facility] Last Admin: 11/11/22 11:21 Dose: 20 mg Documented By: LOUANN Thiamine HCl (Thiamine Hcl 100 Mg Tablet) 100 mg PO DAILY [facility] Last Admin: 11/11/22 11:23 Dose: 100 mg Documented By: LOUANN Labs CBC & Chem 7: 11/02/22 06:51 11/02/22 06:51 Assessment and Plan (1) Right heart failure: Status: Acute (2) Acute respiratory failure with hypoxia: Status: Acute (3) COVID-19: Status: Acute Plan 51yo F with anxiety, bipolar disorder, asthma, gastric bypass surgery, paroxysmal AF, chronic hypotension on midodrine, migraines, PTSD, and recurrent UTIs thought due to nephrolithiasis admitted to ICU 10/19/22 with septic shock with UTI/bacteremia from obstructing R ureteral stone with hydronephrosis. Treated for hypotension. status post cystoscopy and right ureteral s Course complicated by thrombocytopenia due to sepsis with hypoxic respiratory failure due to cor pulmonale and pneumonia. Treated with high-flow nasal cannula and non-rebreather as well as CPAP. Aggressively diuresed with Lasix found to have funk urea. Transferred to medical floor on 10/30/22 COVID-19 Diagnosed just prior to discharge Asymptomatic Will be discharged to rehab after quarantine period, recheck covid 11/13/22 Acute hypoxic respiratory failure secondary to ARDS Resolved Acute asthma exacerbation with history of moderate persistent asthma On prednisone Continue DuoNebs Macrocytic anemia Status post 2 units of packed red blood cells Normal B12, folate and iron studies hypotension Chronic Continue midodrine Klebsiella UTI Status post Levaquin Paroxysmal atrial fibrillation Previously on anticoagulation Stopped due to normal Matteo Vasc score Candiduria Started on fluconazole Total 10 day treatment ELYSE Pre renal, septic ATN Resolved diarrhea Stool studies negative Imodium as needed sign Mental health Continue home medications DVT prophylaxis with med compression was Attending Dr. Brannon Full code In my clinical judgment, the patient requires continued inpatient hospitalization for COVID-19 test positive on awaiting placement to [facility]. Time Spent With Patient Time: Total time managing care of this patient today ____ minutes. Quality Stroke Does the patient have a stroke diagnosis?: No VTE Prior VTE?: No VTE Risk Level:: Medical - moderate - high VTE Device Contraindication: N/A - Device Ordered VTE Drug Contraindication: N/A - Med Ordered
[2022-11-11] MEDS: Loperamide HCl 2 MG CAPSULE 4 MG PO (18:13)
[2022-11-12] VITALS (10 sets, daily range): BP systolic 116–145; BP diastolic 70–92; PULSE 61–90; RESP 18–20; TEMP 36.1–37.1; O2SAT 92–99; BMI 19.6
[2022-11-12 06:42] LABS: Anion Gap 12 (12-20); Blood Urea Nitrogen 5 mg/dL (9-16); Calcium 8.4 mg/dL (8.4-10.2); Carbon Dioxide 26 mmol/L (22-29); Chloride 103 mmol/L (96-108); Creatinine Clr Calc Pharmacy 97.5; Estimated Glomerular Filt Rate > 60; Glucose Random 64 mg/dL (60-115); Magnesium 1.9 mg/dL (1.6-2.6); Potassium 4.4 mmol/L (3.3-5.1); Sodium 137 mmol/L (135-145)
--- NOTE | 2022-11-12 08:31 | HO.PM.IMPN ---
Subjective Subjective Date of Service: 11/12/22 Interval History: Seen in follow up for COVID-19, acute asthma exacerbation with acute hypoxic respiratory failure Feeling better Physical Exam Vital Signs: Vital Signs: Last Vital Signs Temp 98.1 F 11/12/22 07:52 Pulse 84 11/12/22 07:52 Resp 20 11/12/22 07:52 BP 130/83 11/12/22 07:52 Pulse Ox 93 11/12/22 07:52 O2 Del Method 11/12/22 07:52 O2 Flow Rate 2 11/10/22 07:38 FiO2 45 10/29/22 04:00 BMI result Body Mass Index 19.6 Appearing in no acute distress lung sounds are clear to auscultation heart regular rate rhythm, clear S1, S2 positive bowel sounds, abdomen is soft, nontender neuro patient is alert x3, no focal deficits Objective Data Active Medications Albuterol Sulfate (Albuterol Sulfate (0.083%) 2.5 Mg/3 Ml Vial.Neb) 2.5 mg INHALE ONCE PRN PRN Reason: Wheezing Albuterol/Ipratropium (Albuterol/Iprat 2.5/0.5mg 3 Ml Ampul.Neb) 3 ml INHALE RQID [facility] Last Admin: 11/11/22 20:25 Dose: 3 ml Documented By: YURIDIA Ascorbic Acid (Ascorbic Acid 250 Mg Tablet) 250 mg PO DAILY [facility] Last Admin: 11/11/22 11:23 Dose: 250 mg Documented By: LOUANN Clonazepam (Clonazepam 0.5 Mg Tablet) 0.5 mg PO TID [facility] Last Admin: 11/11/22 22:20 Dose: 0.5 mg Documented By: SANDRA Cyanocobalamin (Cyanocobalamin (Vitamin B-12) 500 Mcg Tablet) 500 mcg PO DAILY [facility] Last Admin: 11/11/22 11:23 Dose: 500 mcg Documented By: LOUANN Ferrous Sulfate (Ferrous Sulfate 324 Mg Tablet.Dr) 325 mg PO DAILY [facility] Fluoxetine HCl (Fluoxetine Hcl 20 Mg Capsule) 20 mg PO DAILY [facility] Last Admin: 11/11/22 11:23 Dose: 20 mg Documented By: LOUANN Fluticasone/Vilanterol (Fluticasone/Vilanterol 100/25 Blst.W.Dev) 1 puff INHALE RDAILY [facility] Last Admin: 11/11/22 08:35 Dose: 1 puff Documented By: MEAGAN Guaifenesin/Dextromethorphan (Guaifenesin Dm 100/10/5 Ml 5 Ml Syrup) 10 ml PO TID [facility] Last Admin: 11/11/22 22:20 Dose: 10 ml Documented By: SANDRA Lamotrigine (Lamotrigine 25 Mg Tablet) 150 mg PO BID [facility] Last Admin: 11/11/22 22:20 Dose: 150 mg Documented By: SANDRA Loperamide HCl (Loperamide Hcl 2 Mg Capsule) 4 mg PO Q6H PRN PRN Reason: Diarrhea Last Admin: 11/11/22 18:13 Dose: 4 mg Documented By: LOUANN Midodrine (Midodrine Hcl 5 Mg Tablet) 5 mg PO TID [facility] Last Admin: 11/11/22 22:20 Dose: 5 mg Documented By: SANDRA Omeprazole (Omeprazole 40 Mg Capsule.) 40 mg PO DAILY [facility] Last Admin: 11/11/22 11:21 Dose: 40 mg Documented By: LOUANN Ondansetron HCl (Ondansetron Hcl 4 Mg/2 Ml Vial) 4 mg IVPUSH Q6H PRN PRN Reason: Nausea Last Admin: 11/11/22 22:28 Dose: 4 mg Documented By: SANDRA Prednisone (Prednisone 20 Mg Tablet) 20 mg PO DAILY [facility] Last Admin: 11/11/22 11:21 Dose: 20 mg Documented By: LOUANN Thiamine HCl (Thiamine Hcl 100 Mg Tablet) 100 mg PO DAILY [facility] Last Admin: 11/11/22 11:23 Dose: 100 mg Documented By: LOUANN Labs CBC & Chem 7: 11/02/22 06:51 11/12/22 06:05 Labs: Laboratory Results - last 24 hr 11/12/22 11/12/22 06:05 06:05 Anion Gap 12 Estim Creat Clear Calc 97.5 Estimated GFR > 60 Random Glucose 64 Calcium 8.4 Magnesium 1.9 Assessment and Plan (1) Right heart failure: Status: Acute (2) Acute respiratory failure with hypoxia: Status: Acute (3) COVID-19: Status: Acute Plan 51yo F with anxiety, bipolar disorder, asthma, gastric bypass surgery, paroxysmal AF, chronic hypotension on midodrine, migraines, PTSD, and recurrent UTIs thought due to nephrolithiasis admitted to ICU 10/19/22 with septic shock with UTI/bacteremia from obstructing R ureteral stone with hydronephrosis. Treated for hypotension. status post cystoscopy and right ureteral s Course complicated by thrombocytopenia due to sepsis with hypoxic respiratory failure due to cor pulmonale and pneumonia. Treated with high-flow nasal cannula and non-rebreather as well as CPAP. Aggressively diuresed with Lasix. Transferred to medical floor on 10/30/22 COVID-19 Diagnosed just prior to discharge Asymptomatic Will be discharged to rehab after quarantine period, recheck covid 11/14/22 Acute hypoxic respiratory failure secondary to ARDS Resolved Acute asthma exacerbation with history of moderate persistent asthma On prednisone Continue DuoNebs Macrocytic anemia Status post 2 units of packed red blood cells Normal B12, folate and iron studies hypotension Chronic Continue midodrine Klebsiella UTI Status post Levaquin Paroxysmal atrial fibrillation Previously on anticoagulation Stopped due to normal Matteo Vasc score Candiduria Started on fluconazole Total 10 day treatment ELYSE Pre renal, septic ATN Resolved diarrhea Stool studies negative Imodium as needed sign Mental health Continue home medications DVT prophylaxis with med compression was Attending Dr. Brannon Full code Disposition plan for tx to SNF after neg covid In my clinical judgment, the patient requires continued inpatient hospitalization for COVID-19 test positive on awaiting placement to [facility]. Time Spent With Patient Time: Total time managing care of this patient today ____ minutes. Quality Stroke Does the patient have a stroke diagnosis?: No VTE Prior VTE?: No VTE Risk Level:: Medical - moderate - high VTE Device Contraindication: N/A - Device Ordered VTE Drug Contraindication: N/A - Med Ordered
[2022-11-12] MEDS: Fluticasone/Vilanterol 100/25 BLST.W.DEV 1 PUFF INHALE (08:34)
[2022-11-12] MEDS: Albuterol/Iprat 2.5/0.5MG 3 ML AMPUL.NEB INHALE ×3 (08:41→20:48)
[2022-11-12] MEDS: lamoTRIgine 25 MG TABLET 150 MG PO ×2 (09:10→22:27)
[2022-11-12] MEDS: FLUoxetine HCl 20 MG CAPSULE PO (09:11)
[2022-11-12] MEDS: Ferrous Sulfate 324 MG TABLET.DR PO (09:11)
[2022-11-12] MEDS: Midodrine HCl 5 MG TABLET PO ×3 (09:11→22:27)
[2022-11-12] MEDS: Ascorbic Acid 250 MG TABLET PO (09:11)
[2022-11-12] MEDS: predniSONE 20 MG TABLET PO (09:11)
[2022-11-12] MEDS: Omeprazole 40 MG CAPSULE.DR PO (09:11)
[2022-11-12] MEDS: Cyanocobalamin (Vitamin B-12) 500 MCG TABLET PO (09:11)
[2022-11-12] MEDS: Thiamine HCL 100 MG TABLET PO (09:11)
[2022-11-12] MEDS: clonazePAM 0.5 MG TABLET PO ×3 (09:11→22:27)
[2022-11-12] MEDS: guaiFENesin DM 100/10/5 ML 5 ML SYRUP 10 ML PO ×3 (09:13→22:26)
[2022-11-12] MEDS: Loperamide HCl 2 MG CAPSULE 4 MG PO ×2 (09:22→22:27)
--- NOTE | 2022-11-12 11:42 | MHC.CM.PN ---
Goal remains for dc to [facility] @ [facility] once considered Covid recovered; CM will follow.
[2022-11-12 14:02] LABS: Adenovirus F 40/41 Not Detected (Not Detect.); Astrovirus Not Detected (Not Detect.); Campylobacter Not Detected (Not Detect.); Cryptosporidium Not Detected (Not Detect.); Cyclospora cayetanensis Not Detected (Not Detect.); E. coli EAEC Not Detected (Not Detect.); E. coli EPEC Not Detected (Not Detect.); E. coli ETEC Not Detected (Not Detect.); E. coli O157 Not Detected (Not Detect.); E. coli STEC Not Detected (Not Detect.); Entamoeba histolytica Not Detected (Not Detect.); Giardia lamblia Not Detected (Not Detect.); Norovirus GI/GII Not Detected (Not Detect.); Plesiomonas shigelloides Not Detected (Not Detect.); Rotavirus A Not Detected (Not Detect.); Salmonella Not Detected (Not Detect.); Sapovirus Not Detected (Not Detect.); Shigella sp./EIEC Not Detected (Not Detect.); Vibrio Not Detected (Not Detect.); Vibrio Cholerae Not Detected (Not Detect.); Yersinia enterocolitica Not Detected (Not Detect.)
[2022-11-13] VITALS (8 sets, daily range): BP systolic 101–125; BP diastolic 65–76; PULSE 61–87; RESP 14–20; TEMP 36.2–37.1; O2SAT 95–98
[2022-11-13] MEDS: ondansetron HCL 4 MG/2 ML VIAL IVPUSH (07:40)
[2022-11-13] MEDS: Fluticasone/Vilanterol 100/25 BLST.W.DEV 1 PUFF INHALE (08:05)
[2022-11-13] MEDS: Albuterol/Iprat 2.5/0.5MG 3 ML AMPUL.NEB INHALE (08:05)
[2022-11-13] MEDS: lamoTRIgine 25 MG TABLET 150 MG PO ×2 (09:53→21:33)
[2022-11-13] MEDS: Ferrous Sulfate 324 MG TABLET.DR PO (09:53)
[2022-11-13] MEDS: Omeprazole 40 MG CAPSULE.DR PO (09:53)
[2022-11-13] MEDS: clonazePAM 0.5 MG TABLET PO ×3 (09:53→21:33)
[2022-11-13] MEDS: Ascorbic Acid 250 MG TABLET PO (09:54)
[2022-11-13] MEDS: Midodrine HCl 5 MG TABLET PO ×3 (09:54→21:33)
[2022-11-13] MEDS: FLUoxetine HCl 20 MG CAPSULE PO (09:54)
[2022-11-13] MEDS: guaiFENesin DM 100/10/5 ML 5 ML SYRUP 10 ML PO ×3 (09:54→21:33)
[2022-11-13] MEDS: Thiamine HCL 100 MG TABLET PO (09:54)
[2022-11-13] MEDS: predniSONE 20 MG TABLET PO (09:54)
[2022-11-13] MEDS: Cyanocobalamin (Vitamin B-12) 500 MCG TABLET PO (09:54)
[2022-11-13] MEDS: Loperamide HCl 2 MG CAPSULE 4 MG PO ×2 (09:55→16:04)
--- NOTE | 2022-11-13 16:25 | HO.PM.IMPN ---
Subjective Subjective Date of Service: 11/13/22 Interval History: seen and examined this morning follow up for asthma, covid 19 frustrated, wants to go to rehab denies sob Review of Systems Review of Systems: Yes all other systems are reviewed and are negative Constitutional Constitutional: Denies chills and Denies fever(s) Cardiovascular Cardiovascular: Denies chest pain, Denies palpitations and Denies dyspnea Respiratory Respiratory: Denies dyspnea Endocrine Endocrine: Denies palpitations Physical Exam Vital Signs: Vital Signs: Last Vital Signs Temp 98.3 F 11/13/22 15:06 Pulse 79 11/13/22 15:06 Resp 16 11/13/22 15:06 BP 111/68 11/13/22 15:06 Pulse Ox 97 11/13/22 15:06 O2 Del Method 11/13/22 15:06 O2 Flow Rate 2 11/10/22 07:38 FiO2 45 10/29/22 04:00 Oxygen Flow Rate 2 11/12/22 15:00 BMI result Body Mass Index 19.6 Const: General: comfortable, alert and awake Nutritional Appearance: thin Orientation/consciousness: patient oriented x3 Resp: Effort & Inspection: normal respiratory effort, able to speak in complete sentences and no respiratory distress Cardio: Rate: regular rate Heart sounds: S1 normal heart sound present and S2 normal heart sound present GI: Inspection: No distended Palpation (GI): Soft to palpation Neuro: General: patient oriented x3 Extrem: General: Yes no pedal edema Objective Data Active Medications Albuterol Sulfate (Albuterol Sulfate (0.083%) 2.5 Mg/3 Ml Vial.Neb) 2.5 mg INHALE ONCE PRN PRN Reason: Wheezing Albuterol/Ipratropium (Albuterol/Iprat 2.5/0.5mg 3 Ml Ampul.Neb) 3 ml INHALE RQID [facility] Last Admin: 11/13/22 15:40 Dose: Not Given Documented By: ANGELI Non-Admin Reason: Patient Asleep Ascorbic Acid (Ascorbic Acid 250 Mg Tablet) 250 mg PO DAILY [facility] Last Admin: 11/13/22 09:54 Dose: 250 mg Documented By: JOANN Cyanocobalamin (Cyanocobalamin (Vitamin B-12) 500 Mcg Tablet) 500 mcg PO DAILY [facility] Last Admin: 11/13/22 09:54 Dose: 500 mcg Documented By: JOANN Ferrous Sulfate (Ferrous Sulfate 324 Mg Tablet.) 324 mg PO DAILY [facility] Last Admin: 11/13/22 09:53 Dose: 324 mg Documented By: JOANN Fluoxetine HCl (Fluoxetine Hcl 20 Mg Capsule) 20 mg PO DAILY [facility] Last Admin: 11/13/22 09:54 Dose: 20 mg Documented By: JOANN Fluticasone/Vilanterol (Fluticasone/Vilanterol 100/25 Blst.W.Dev) 1 puff INHALE RDAILY [facility] Last Admin: 11/13/22 08:05 Dose: 1 puff Documented By: ANGELI Guaifenesin/Dextromethorphan (Guaifenesin Dm 100/10/5 Ml 5 Ml Syrup) 10 ml PO TID [facility] Last Admin: 11/13/22 16:05 Dose: 10 ml Documented By: JOANN Lamotrigine (Lamotrigine 25 Mg Tablet) 150 mg PO BID [facility] Last Admin: 11/13/22 09:53 Dose: 150 mg Documented By: JOANN Loperamide HCl (Loperamide Hcl 2 Mg Capsule) 4 mg PO Q6H PRN PRN Reason: Diarrhea Last Admin: 11/13/22 16:04 Dose: 4 mg Documented By: JOANN Midodrine (Midodrine Hcl 5 Mg Tablet) 5 mg PO TID [facility] Last Admin: 11/13/22 16:05 Dose: 5 mg Documented By: JOANN Omeprazole (Omeprazole 40 Mg Capsule.) 40 mg PO DAILY [facility] Last Admin: 11/13/22 09:53 Dose: 40 mg Documented By: JOANN Ondansetron HCl (Ondansetron Hcl 4 Mg/2 Ml Vial) 4 mg IVPUSH Q6H PRN PRN Reason: Nausea Last Admin: 11/13/22 07:40 Dose: 4 mg Documented By: SANDRA Prednisone (Prednisone 20 Mg Tablet) 20 mg PO DAILY [facility] Last Admin: 11/13/22 09:54 Dose: 20 mg Documented By: JOANN Thiamine HCl (Thiamine Hcl 100 Mg Tablet) 100 mg PO DAILY [facility] Last Admin: 11/13/22 09:54 Dose: 100 mg Documented By: JOANN Labs CBC & Chem 7: 11/02/22 06:51 11/12/22 06:05 Assessment and Plan (1) COVID-19: Status: Acute Plan 51yo F with anxiety, bipolar disorder, asthma, gastric bypass surgery, paroxysmal AF, chronic hypotension on midodrine, migraines, PTSD, and recurrent UTIs thought due to nephrolithiasis admitted to ICU 10/19/22 with septic shock with UTI/bacteremia from obstructing R ureteral stone with hydronephrosis started on norepi, underwent cystoscopy + R ureteral stent in [place] 10/19 blood and urine cultures grew Klebsiella sensitive to levofloxacin ICU course complicated by precipitous thrombocytopenia due to sepsis, then hypoxic respiratory failure due to cor pulmonale and pneumonia was on HFNC + NRB, then CPAP aggressively diuresed with furosemide found to have funguria question of secretory diarrhea treated with cholestyramine + octreotide now off levofloxacin + norepi stepped down to [facility] 10/30/22 COVID-19 Diagnosed just prior to discharge Asymptomatic Will be discharged to rehab after quarantine period, recheck covid 11/14/22 Acute hypoxic respiratory failure secondary to ARDS Resolved Acute asthma exacerbation with history of moderate persistent asthma wean steroids Continue DuoNebs Macrocytic anemia Status post 2 units of packed red blood cells Normal B12, folate and iron studies hypotension Chronic Continue midodrine Klebsiella UTI Status post Levaquin Paroxysmal atrial fibrillation Previously on anticoagulation Stopped due to normal Matteo Vasc score Candiduria completed 10 day course of fluconazole ELYSE Pre renal, septic ATN Resolved diarrhea Stool studies negative Imodium as needed Mental health Continue home medications DVT prophylaxis with med compression Attending Dr. Brannon Full code Disposition plan for tx to SNF after neg covid In my clinical judgment, the patient requires continued inpatient hospitalization for COVID-19 test positive on awaiting placement to [facility]. Time Spent With Patient Time: Total time managing care of this patient today ____ minutes. Quality Stroke Does the patient have a stroke diagnosis?: No VTE Prior VTE?: No VTE Risk Level:: Medical - moderate - high VTE Device Contraindication: N/A - Device Ordered VTE Drug Contraindication: N/A - Med Ordered
[2022-11-14] VITALS (7 sets, daily range): BP systolic 129–147; BP diastolic 69–92; PULSE 67–73; RESP 12–20; TEMP 36.6–37.2; O2SAT 95–100
[2022-11-14 04:57] LABS: COVID-19 Test Positive (Negative)
[2022-11-14] MEDS: lamoTRIgine 25 MG TABLET 150 MG PO ×2 (09:17→20:50)
[2022-11-14] MEDS: Omeprazole 40 MG CAPSULE.DR PO (09:17)
[2022-11-14] MEDS: guaiFENesin DM 100/10/5 ML 5 ML SYRUP 10 ML PO ×3 (09:18→20:54)
[2022-11-14] MEDS: Midodrine HCl 5 MG TABLET PO ×3 (09:18→20:50)
[2022-11-14] MEDS: clonazePAM 0.5 MG TABLET PO ×3 (09:18→20:46)
[2022-11-14] MEDS: Thiamine HCL 100 MG TABLET PO (09:18)
[2022-11-14] MEDS: Ferrous Sulfate 324 MG TABLET.DR PO (09:18)
[2022-11-14] MEDS: Cyanocobalamin (Vitamin B-12) 500 MCG TABLET PO (09:18)
[2022-11-14] MEDS: FLUoxetine HCl 20 MG CAPSULE PO (09:18)
[2022-11-14] MEDS: Ascorbic Acid 250 MG TABLET PO (09:18)
[2022-11-14] MEDS: predniSONE 10 MG TABLET PO (09:19)
[2022-11-14] MEDS: Loperamide HCl 2 MG CAPSULE 4 MG PO ×2 (09:45→20:47)
[2022-11-14] MEDS: Albuterol/Iprat 2.5/0.5MG 3 ML AMPUL.NEB INHALE (11:54)
--- NOTE | 2022-11-14 11:58 | MHC.CM.PN ---
Patient tested Covid (+) today; will need to wait until 11/19/2022 before [facility] [place] [facility] will consider Patient for admission (STANLEY/Karyn has agreed to inform Patient's Mother of this situation). CM will follow.
--- NOTE | 2022-11-14 16:31 | HO.PM.IMPN ---
Subjective Subjective Date of Service: 11/14/22 Interval History: seen and examined this morning no overnight events reporting ongoing diarrhea, no abdominal pain Review of Systems Review of Systems: Yes all other systems are reviewed and are negative Constitutional Constitutional: Denies chills and Denies fever(s) Cardiovascular Cardiovascular: Denies chest pain, Denies palpitations and Denies dyspnea Respiratory Respiratory: Reports cough and Denies dyspnea Gastrointestinal Gastrointestinal: Denies abdominal pain and Reports diarrhea Endocrine Endocrine: Denies palpitations Physical Exam Vital Signs: Vital Signs: Last Vital Signs Temp 98.7 F 11/14/22 15:48 Pulse 72 11/14/22 15:48 Resp 18 11/14/22 15:48 BP 138/87 11/14/22 15:48 Pulse Ox 96 11/14/22 15:48 O2 Del Method 11/14/22 15:48 O2 Flow Rate 2 11/10/22 07:38 FiO2 45 10/29/22 04:00 Oxygen Flow Rate 2 11/12/22 15:00 BMI result Body Mass Index 19.6 Const: General: comfortable, alert and awake Nutritional Appearance: thin Orientation/consciousness: patient oriented x3 Resp: Effort & Inspection: normal respiratory effort, able to speak in complete sentences and no respiratory distress Cardio: Rate: regular rate Heart sounds: S1 normal heart sound present and S2 normal heart sound present GI: Inspection: No distended Palpation (GI): Soft to palpation Neuro: General: patient oriented x3 Extrem: General: Yes no pedal edema Objective Data Active Medications Albuterol/Ipratropium (Albuterol/Iprat 2.5/0.5mg 3 Ml Ampul.Neb) 3 ml INHALE RQID [facility] Last Admin: 11/14/22 15:23 Dose: Not Given Documented By: ANGELI Non-Admin Reason: Patient Asleep Ascorbic Acid (Ascorbic Acid 250 Mg Tablet) 250 mg PO DAILY [facility] Last Admin: 11/14/22 09:18 Dose: 250 mg Documented By: TIFFANY Clonazepam (Clonazepam 0.5 Mg Tablet) 0.5 mg PO TID [facility] Last Admin: 11/14/22 14:14 Dose: 0.5 mg Documented By: TIFFANY Cyanocobalamin (Cyanocobalamin (Vitamin B-12) 500 Mcg Tablet) 500 mcg PO DAILY [facility] Last Admin: 11/14/22 09:18 Dose: 500 mcg Documented By: TIFFANY Ferrous Sulfate (Ferrous Sulfate 324 Mg Tablet.) 324 mg PO DAILY [facility] Last Admin: 11/14/22 09:18 Dose: 324 mg Documented By: TIFFANY Fluoxetine HCl (Fluoxetine Hcl 20 Mg Capsule) 20 mg PO DAILY [facility] Last Admin: 11/14/22 09:18 Dose: 20 mg Documented By: TIFFANY Fluticasone/Vilanterol (Fluticasone/Vilanterol 100/25 Blst.W.Dev) 1 puff INHALE RDAILY [facility] Last Admin: 11/14/22 07:49 Dose: Not Given Documented By: KATHY Non-Admin Reason: pt unavail Guaifenesin/Dextromethorphan (Guaifenesin Dm 100/10/5 Ml 5 Ml Syrup) 10 ml PO TID [facility] Last Admin: 11/14/22 14:14 Dose: 10 ml Documented By: TIFFANY Lamotrigine (Lamotrigine 25 Mg Tablet) 150 mg PO BID [facility] Last Admin: 11/14/22 09:17 Dose: 150 mg Documented By: TIFFANY Loperamide HCl (Loperamide Hcl 2 Mg Capsule) 4 mg PO Q6H PRN PRN Reason: Diarrhea Last Admin: 11/14/22 09:45 Dose: 4 mg Documented By: TIFFANY Midodrine (Midodrine Hcl 5 Mg Tablet) 5 mg PO TID [facility] Last Admin: 11/14/22 14:14 Dose: 5 mg Documented By: TIFFANY Omeprazole (Omeprazole 40 Mg Capsule.) 40 mg PO DAILY [facility] Last Admin: 11/14/22 09:17 Dose: 40 mg Documented By: TIFFANY Ondansetron HCl (Ondansetron Hcl 4 Mg/2 Ml Vial) 4 mg IVPUSH Q6H PRN PRN Reason: Nausea Last Admin: 11/13/22 07:40 Dose: 4 mg Documented By: SANDRA Prednisone (Prednisone 10 Mg Tablet) 10 mg PO DAILY [facility] Last Admin: 11/14/22 09:19 Dose: 10 mg Documented By: TIFFANY Thiamine HCl (Thiamine Hcl 100 Mg Tablet) 100 mg PO DAILY [facility] Last Admin: 12/23/22 09:18 Dose: 100 mg Documented By: TIFFANY Labs CBC & Chem 7: 11/02/22 06:51 11/12/22 06:05 Labs: Laboratory Results - last 24 hr 11/14/22 04:40 COVID-19 ([facility]JUM) Positive A COVID-19 Clin Com See Note Assessment and Plan (1) COVID-19: Status: Acute (2) Acute respiratory failure with hypoxia: Status: Acute Plan 51yo F with anxiety, bipolar disorder, asthma, gastric bypass surgery, paroxysmal AF, chronic hypotension on midodrine, migraines, PTSD, and recurrent UTIs thought due to nephrolithiasis admitted to ICU 10/19/22 with septic shock with UTI/bacteremia from obstructing R ureteral stone with hydronephrosis started on norepi, underwent cystoscopy + R ureteral stent in [place] 10/19 blood and urine cultures grew Klebsiella sensitive to levofloxacin ICU course complicated by precipitous thrombocytopenia due to sepsis, then hypoxic respiratory failure due to cor pulmonale and pneumonia was on HFNC + NRB, then CPAP aggressively diuresed with furosemide found to have funguria question of secretory diarrhea treated with cholestyramine + octreotide now off levofloxacin + norepi stepped down to [facility] 10/30/22 COVID-19 Diagnosed just prior to discharge no hypoxia Will be discharged to rehab after quarantine period, covid recheck 11/14/22 - still positive Acute hypoxic respiratory failure secondary to ARDS Resolved Acute asthma exacerbation with history of moderate persistent asthma wean steroids Continue DuoNebs Macrocytic anemia Status post 2 units of packed red blood cells Normal B12, folate and iron studies hypotension Chronic Continue midodrine Klebsiella UTI Status post Levaquin Paroxysmal atrial fibrillation Previously on anticoagulation Stopped due to normal Matteo Vasc score Candiduria completed 10 day course of fluconazole ELYSE Pre renal, septic ATN Resolved diarrhea Stool studies negative Imodium as needed Mental health Continue home medications DVT prophylaxis with med compression Attending Dr. Brannon Full code Disposition plan for tx to SNF after 10 day quarantine. plan to go to [facility] 11/19 In my clinical judgment, the patient requires continued inpatient hospitalization for COVID-19 test positive on awaiting placement to [facility]. Time Spent With Patient Time: Total time managing care of this patient today ____ minutes. Quality Stroke Does the patient have a stroke diagnosis?: No VTE Prior VTE?: No VTE Risk Level:: Medical - moderate - high VTE Device Contraindication: N/A - Device Ordered VTE Drug Contraindication: N/A - Med Ordered
[2022-11-15] VITALS (7 sets, daily range): BP systolic 109–141; BP diastolic 65–91; PULSE 66–85; RESP 14–20; TEMP 36.2–37.1; O2SAT 93–98; BMI 18.4
[2022-11-15] MEDS: Loperamide HCl 2 MG CAPSULE 4 MG PO ×5 (03:57→21:11)
[2022-11-15] MEDS: Fluticasone/Vilanterol 100/25 BLST.W.DEV 1 PUFF INHALE (08:41)
[2022-11-15] MEDS: Albuterol/Iprat 2.5/0.5MG 3 ML AMPUL.NEB INHALE (08:41)
[2022-11-15] MEDS: Ferrous Sulfate 324 MG TABLET.DR PO (09:00)
[2022-11-15] MEDS: Ascorbic Acid 250 MG TABLET PO (09:01)
[2022-11-15] MEDS: Cyanocobalamin (Vitamin B-12) 500 MCG TABLET PO (09:01)
[2022-11-15] MEDS: predniSONE 10 MG TABLET PO (09:01)
[2022-11-15] MEDS: Thiamine HCL 100 MG TABLET PO (09:01)
[2022-11-15] MEDS: Midodrine HCl 5 MG TABLET PO ×3 (09:01→21:13)
[2022-11-15] MEDS: Omeprazole 40 MG CAPSULE.DR PO (09:01)
[2022-11-15] MEDS: lamoTRIgine 25 MG TABLET 150 MG PO ×2 (09:01→21:11)
[2022-11-15] MEDS: FLUoxetine HCl 20 MG CAPSULE PO (09:01)
[2022-11-15] MEDS: clonazePAM 0.5 MG TABLET PO ×3 (09:01→21:20)
[2022-11-15] MEDS: ondansetron HCL 4 MG/2 ML VIAL IVPUSH (09:02)
[2022-11-15] MEDS: guaiFENesin DM 100/10/5 ML 5 ML SYRUP 10 ML PO ×3 (09:27→21:16)
--- NOTE | 2022-11-15 12:14 | HO.PM.IMPN ---
Subjective Subjective Date of Service: 11/15/22 Interval History: seen and examined this morning no overnight events reporting ongoing diarrhea, no abdominal pain Review of Systems Review of Systems: Yes all other systems are reviewed and are negative Constitutional Constitutional: Denies chills and Denies fever(s) Cardiovascular Cardiovascular: Denies chest pain, Denies palpitations and Denies dyspnea Respiratory Respiratory: Reports cough and Denies dyspnea Gastrointestinal Gastrointestinal: Denies abdominal pain and Reports diarrhea Endocrine Endocrine: Denies palpitations Physical Exam Vital Signs: Vital Signs: Last Vital Signs Temp 98.7 F 11/15/22 08:00 Pulse 85 11/15/22 08:42 Resp 18 11/15/22 08:42 BP 141/91 H 11/15/22 08:00 Pulse Ox 95 11/15/22 08:00 O2 Del Method 11/15/22 08:00 O2 Flow Rate 2 11/10/22 07:38 FiO2 45 10/29/22 04:00 Oxygen Flow Rate 2 11/12/22 15:00 BMI result Body Mass Index 18.4 Appearing in no acute distress lung sounds are clear to auscultation heart regular rate rhythm, clear S1, S2 positive bowel sounds, abdomen is soft, nontender neuro patient is alert x3, no focal deficits Objective Data Active Medications Albuterol/Ipratropium (Albuterol/Iprat 2.5/0.5mg 3 Ml Ampul.Neb) 3 ml INHALE RQID [facility] Last Admin: 11/15/22 12:04 Dose: Not Given Documented By: CELINE Non-Admin Reason: Patient Refused Ascorbic Acid (Ascorbic Acid 250 Mg Tablet) 250 mg PO DAILY [facility] Last Admin: 11/15/22 09:01 Dose: 250 mg Documented By: TIFFANY Clonazepam (Clonazepam 0.5 Mg Tablet) 0.5 mg PO TID [facility] Last Admin: 11/15/22 09:01 Dose: 0.5 mg Documented By: TIFFANY Cyanocobalamin (Cyanocobalamin (Vitamin B-12) 500 Mcg Tablet) 500 mcg PO DAILY [facility] Last Admin: 11/15/22 09:01 Dose: 500 mcg Documented By: TIFFANY Ferrous Sulfate (Ferrous Sulfate 324 Mg Tablet.) 324 mg PO DAILY [facility] Last Admin: 11/15/22 09:00 Dose: 324 mg Documented By: TIFFANY Fluoxetine HCl (Fluoxetine Hcl 20 Mg Capsule) 20 mg PO DAILY [facility] Last Admin: 11/15/22 09:01 Dose: 20 mg Documented By: TIFFANY Fluticasone/Vilanterol (Fluticasone/Vilanterol 100/25 Blst.W.Dev) 1 puff INHALE RDAILY [facility] Last Admin: 11/15/22 08:41 Dose: 1 puff Documented By: CELINE Guaifenesin/Dextromethorphan (Guaifenesin Dm 100/10/5 Ml 5 Ml Syrup) 10 ml PO TID [facility] Last Admin: 11/15/22 09:27 Dose: 10 ml Documented By: TIFFANY Lamotrigine (Lamotrigine 25 Mg Tablet) 150 mg PO BID [facility] Last Admin: 11/15/22 09:01 Dose: 150 mg Documented By: TIFFANY Loperamide HCl (Loperamide Hcl 2 Mg Capsule) 4 mg PO Q6H PRN PRN Reason: Diarrhea Last Admin: 11/15/22 10:22 Dose: 4 mg Documented By: TIFFANY Midodrine (Midodrine Hcl 5 Mg Tablet) 5 mg PO TID [facility] Last Admin: 11/15/22 09:01 Dose: 5 mg Documented By: TIFFANY Omeprazole (Omeprazole 40 Mg Capsule.Dr) 40 mg PO DAILY [facility] Last Admin: 11/15/22 09:01 Dose: 40 mg Documented By: TIFFANY Ondansetron HCl (Ondansetron Hcl 4 Mg/2 Ml Vial) 4 mg IVPUSH Q6H PRN PRN Reason: Nausea Last Admin: 11/15/22 09:02 Dose: 4 mg Documented By: TIFFANY Prednisone (Prednisone 10 Mg Tablet) 10 mg PO DAILY [facility] Stop: 11/18/22 09:01 Last Admin: 11/15/22 09:01 Dose: 10 mg Documented By: TIFFANY Thiamine HCl (Thiamine Hcl 100 Mg Tablet) 100 mg PO DAILY [facility] Last Admin: 11/15/22 09:01 Dose: 100 mg Documented By: TIFFANY Labs CBC & Chem 7: 11/02/22 06:51 11/12/22 06:05 Assessment and Plan (1) COVID-19: Status: Acute (2) Acute respiratory failure with hypoxia: Status: Acute Plan 51yo F with anxiety, bipolar disorder, asthma, gastric bypass surgery, paroxysmal AF, chronic hypotension on midodrine, migraines, PTSD, and recurrent UTIs thought due to nephrolithiasis admitted to ICU 10/19/22 with septic shock with UTI/bacteremia from obstructing R ureteral stone with hydronephrosis started on norepi, underwent cystoscopy + [place] ureteral stent in [place] 10/19 blood and urine cultures grew Klebsiella sensitive to levofloxacin ICU course complicated by precipitous thrombocytopenia due to sepsis, then hypoxic respiratory failure due to cor pulmonale and pneumonia was on HFNC + NRB, then CPAP aggressively diuresed with furosemide found to have funguria question of secretory diarrhea treated with cholestyramine + octreotide now off levofloxacin + norepi stepped down to [facility] 10/30/22. Persistent diarrhea Stool studies negative Scheduled Imodium COVID-19 Diagnosed just prior to discharge no hypoxia Will be discharged to rehab after quarantine period, covid recheck 11/14/22 - still positive, next recheck 11/19 Acute hypoxic respiratory failure secondary to ARDS Resolved Acute asthma exacerbation with history of moderate persistent asthma wean steroids Continue DuoNebs Macrocytic anemia Status post 2 units of packed red blood cells Normal B12, folate and iron studies hypotension Chronic Continue midodrine Klebsiella UTI Status post Levaquin Paroxysmal atrial fibrillation Previously on anticoagulation Stopped due to normal Matteo Vasc score Candiduria completed 10 day course of fluconazole ELYSE Pre renal, septic ATN Resolved Mental health Continue home medications DVT prophylaxis with med compression Attending Dr. Brannon Full code Disposition plan for tx to SNF after 10 day quarantine. plan to go to [facility] 11/19 In my clinical judgment, the patient requires continued inpatient hospitalization for COVID-19 test positive on awaiting placement to [facility]. Time Spent With Patient Time: Total time managing care of this patient today ____ minutes. Quality Stroke Does the patient have a stroke diagnosis?: No VTE Prior VTE?: No VTE Risk Level:: Medical - moderate - high VTE Device Contraindication: N/A - Device Ordered VTE Drug Contraindication: N/A - Med Ordered
[2022-11-16] VITALS (8 sets, daily range): BP systolic 96–136; BP diastolic 63–82; PULSE 63–95; RESP 15–20; TEMP 36.2–37.1; O2SAT 93–98
[2022-11-16] MEDS: Loperamide HCl 2 MG CAPSULE 4 MG PO ×5 (04:14→20:51)
[2022-11-16] MEDS: Omeprazole 40 MG CAPSULE.DR PO (08:57)
[2022-11-16] MEDS: guaiFENesin DM 100/10/5 ML 5 ML SYRUP 10 ML PO ×3 (08:57→20:52)
[2022-11-16] MEDS: clonazePAM 0.5 MG TABLET PO ×3 (08:57→20:53)
[2022-11-16] MEDS: Ferrous Sulfate 324 MG TABLET.DR PO (08:58)
[2022-11-16] MEDS: Ascorbic Acid 250 MG TABLET PO (08:58)
[2022-11-16] MEDS: Cyanocobalamin (Vitamin B-12) 500 MCG TABLET PO (08:58)
[2022-11-16] MEDS: lamoTRIgine 25 MG TABLET 150 MG PO ×2 (08:58→20:57)
[2022-11-16] MEDS: Thiamine HCL 100 MG TABLET PO (08:58)
[2022-11-16] MEDS: predniSONE 10 MG TABLET PO (08:58)
[2022-11-16] MEDS: Midodrine HCl 5 MG TABLET PO ×3 (08:58→20:52)
[2022-11-16] MEDS: FLUoxetine HCl 20 MG CAPSULE PO (08:58)
[2022-11-16] MEDS: Fluticasone/Vilanterol 100/25 BLST.W.DEV 1 PUFF INHALE (09:28)
--- NOTE | 2022-11-16 11:03 | HO.PM.IMPN ---
Subjective Subjective Date of Service: 11/16/22 Interval History: seen and examined this morning follow up for placement no overnight events, no abdominal pain still with some diarrhea, imodium helps Review of Systems Review of Systems: Yes all other systems are reviewed and are negative Constitutional Constitutional: Denies chills and Denies fever(s) Cardiovascular Cardiovascular: Denies chest pain, Denies palpitations and Denies dyspnea Respiratory Respiratory: Denies cough and Denies dyspnea Gastrointestinal Gastrointestinal: Denies abdominal pain, Denies nausea and Denies vomiting Endocrine Endocrine: Denies palpitations Physical Exam Vital Signs: Vital Signs: Last Vital Signs Temp 97.9 F 11/16/22 07:52 Pulse 77 11/16/22 09:28 Resp 16 11/16/22 09:28 BP 103/72 11/16/22 07:52 Pulse Ox 93 11/16/22 07:52 O2 Del Method 11/16/22 07:52 O2 Flow Rate 2 11/10/22 07:38 FiO2 45 10/29/22 04:00 Oxygen Flow Rate 2 11/12/22 15:00 BMI result Body Mass Index 18.4 Const: General: comfortable, alert and awake Nutritional Appearance: thin Orientation/consciousness: patient oriented x3 Resp: Effort & Inspection: normal respiratory effort, able to speak in complete sentences and no respiratory distress Cardio: Rate: regular rate Heart sounds: S1 normal heart sound present and S2 normal heart sound present GI: Inspection: No distended Palpation (GI): Soft to palpation Neuro: General: patient oriented x3 Extrem: General: Yes no pedal edema Objective Data Active Medications Ascorbic Acid (Ascorbic Acid 250 Mg Tablet) 250 mg PO DAILY [facility] Last Admin: 11/16/22 08:58 Dose: 250 mg Documented By: PRISCILA Clonazepam (Clonazepam 0.5 Mg Tablet) 0.5 mg PO TID [facility] Last Admin: 11/16/22 08:57 Dose: 0.5 mg Documented By: PRISCILA Cyanocobalamin (Cyanocobalamin (Vitamin B-12) 500 Mcg Tablet) 500 mcg PO DAILY [facility] Last Admin: 11/16/22 08:58 Dose: 500 mcg Documented By: PRISCILA Ferrous Sulfate (Ferrous Sulfate 324 Mg Tablet.) 324 mg PO DAILY [facility] Last Admin: 11/16/22 08:58 Dose: 324 mg Documented By: PRISCILA Fluoxetine HCl (Fluoxetine Hcl 20 Mg Capsule) 20 mg PO DAILY [facility] Last Admin: 11/16/22 08:58 Dose: 20 mg Documented By: PRISCILA Fluticasone/Vilanterol (Fluticasone/Vilanterol 100/25 Blst.W.Dev) 1 puff INHALE RDAILY [facility] Last Admin: 11/16/22 09:28 Dose: 1 puff Documented By: JIGNESH Guaifenesin/Dextromethorphan (Guaifenesin Dm 100/10/5 Ml 5 Ml Syrup) 10 ml PO TID [facility] Last Admin: 11/16/22 08:57 Dose: 10 ml Documented By: PRISCILA Lamotrigine (Lamotrigine 25 Mg Tablet) 150 mg PO BID [facility] Last Admin: 11/16/22 08:58 Dose: 150 mg Documented By: PRISCILA Loperamide HCl (Loperamide Hcl 2 Mg Capsule) 4 mg PO Q6H PRN PRN Reason: Diarrhea Last Admin: 11/15/22 10:22 Dose: 4 mg Documented By: TIFFANY Loperamide HCl (Loperamide Hcl 2 Mg Capsule) 4 mg PO Q4H [facility] Last Admin: 11/16/22 08:58 Dose: 4 mg Documented By: PRISCILA Midodrine (Midodrine Hcl 5 Mg Tablet) 5 mg PO TID [facility] Last Admin: 11/16/22 08:58 Dose: 5 mg Documented By: PRISCILA Omeprazole (Omeprazole 40 Mg Capsule.Dr) 40 mg PO DAILY [facility] Last Admin: 11/16/22 08:57 Dose: 40 mg Documented By: PRISCILA Ondansetron HCl (Ondansetron Hcl 4 Mg/2 Ml Vial) 4 mg IVPUSH Q6H PRN PRN Reason: Nausea Last Admin: 11/15/22 09:02 Dose: 4 mg Documented By: TIFFANY Prednisone (Prednisone 10 Mg Tablet) 10 mg PO DAILY [facility] Stop: 11/18/22 09:01 Last Admin: 11/16/22 08:58 Dose: 10 mg Documented By: PRISCILA Thiamine HCl (Thiamine Hcl 100 Mg Tablet) 100 mg PO DAILY [facility] Last Admin: 11/16/22 08:58 Dose: 100 mg Documented By: PRISCILA Labs CBC & Chem 7: 11/02/22 06:51 11/12/22 06:05 Assessment and Plan (1) COVID-19: Status: Acute Plan 51yo F with anxiety, bipolar disorder, asthma, gastric bypass surgery, paroxysmal AF, chronic hypotension on midodrine, migraines, PTSD, and recurrent UTIs thought due to nephrolithiasis admitted to ICU 10/19/22 with septic shock with UTI/bacteremia from obstructing R ureteral stone with hydronephrosis started on norepi, underwent cystoscopy + R ureteral stent in [place] 10/19 blood and urine cultures grew Klebsiella sensitive to levofloxacin ICU course complicated by precipitous thrombocytopenia due to sepsis, then hypoxic respiratory failure due to cor pulmonale and pneumonia was on HFNC + NRB, then CPAP aggressively diuresed with furosemide found to have funguria question of secretory diarrhea treated with cholestyramine + octreotide now off levofloxacin + norepi stepped down to [facility] 10/30/22. Persistent diarrhea Stool studies negative Scheduled Imodium COVID-19 Diagnosed just prior to discharge no hypoxia Will be discharged to rehab after quarantine period, covid recheck 11/14/22 - still positive Acute hypoxic respiratory failure secondary to ARDS Resolved Acute asthma exacerbation with history of moderate persistent asthma wean steroids Continue DuoNebs Macrocytic anemia Status post 2 units of packed red blood cells Normal B12, folate and iron studies hypotension Chronic Continue midodrine Klebsiella UTI Status post Levaquin Paroxysmal atrial fibrillation Previously on anticoagulation Stopped due to normal Matteo Vasc score Candiduria completed 10 day course of fluconazole ELYSE Pre renal, septic ATN Resolved Mental health Continue home medications DVT prophylaxis with med compression Attending Dr. Parekh Full code Disposition plan for tx to SNF after 10 day quarantine. plan to go to [facility] 11/19 In my clinical judgment, the patient requires continued inpatient hospitalization for COVID-19 test positive on 11/08 awaiting placement to [facility]. Time Spent With Patient Time: Total time managing care of this patient today ____ minutes. Quality Stroke Does the patient have a stroke diagnosis?: No VTE Prior VTE?: No VTE Risk Level:: Medical - moderate - high VTE Device Contraindication: N/A - Device Ordered VTE Drug Contraindication: N/A - Med Ordered
[2022-11-17] VITALS (8 sets, daily range): BP systolic 113–128; BP diastolic 67–83; PULSE 63–85; RESP 18–20; TEMP 36.7–37.2; O2SAT 95–97; BMI 17.9
[2022-11-17] MEDS: Loperamide HCl 2 MG CAPSULE 4 MG PO ×6 (00:55→20:47)
[2022-11-17] MEDS: Fluticasone/Vilanterol 100/25 BLST.W.DEV 1 PUFF INHALE (08:17)
[2022-11-17] MEDS: Ascorbic Acid 250 MG TABLET PO (09:28)
[2022-11-17] MEDS: lamoTRIgine 25 MG TABLET 150 MG PO ×2 (09:28→20:47)
[2022-11-17] MEDS: clonazePAM 0.5 MG TABLET PO ×3 (09:28→20:47)
[2022-11-17] MEDS: Cyanocobalamin (Vitamin B-12) 500 MCG TABLET PO (09:28)
[2022-11-17] MEDS: FLUoxetine HCl 20 MG CAPSULE PO (09:28)
[2022-11-17] MEDS: Midodrine HCl 5 MG TABLET PO ×3 (09:29→20:47)
[2022-11-17] MEDS: Ferrous Sulfate 324 MG TABLET.DR PO (09:29)
[2022-11-17] MEDS: Thiamine HCL 100 MG TABLET PO (09:29)
[2022-11-17] MEDS: Omeprazole 40 MG CAPSULE.DR PO (09:29)
[2022-11-17] MEDS: predniSONE 10 MG TABLET PO (09:29)
[2022-11-17] MEDS: guaiFENesin DM 100/10/5 ML 5 ML SYRUP 10 ML PO ×3 (09:29→20:47)
--- NOTE | 2022-11-17 10:26 | HO.PM.IMPN ---
Subjective Subjective Date of Service: 11/17/22 Interval History: seen and examined this morning follow up for placement no overnight events, no abdominal pain still with some diarrhea, imodium helps Review of Systems Review of Systems: Yes all other systems are reviewed and are negative Constitutional Constitutional: Denies chills and Denies fever(s) Cardiovascular Cardiovascular: Denies chest pain, Denies palpitations and Denies dyspnea Respiratory Respiratory: Denies cough and Denies dyspnea Gastrointestinal Gastrointestinal: Denies abdominal pain, Denies nausea and Denies vomiting Endocrine Endocrine: Denies palpitations Physical Exam Vital Signs: Vital Signs: Last Vital Signs Temp 98.4 F 11/17/22 07:26 Pulse 85 11/17/22 08:18 Resp 18 11/17/22 08:18 BP 116/83 11/17/22 07:26 Pulse Ox 97 11/17/22 07:26 O2 Del Method 11/17/22 07:26 O2 Flow Rate 2 11/10/22 07:38 FiO2 45 10/29/22 04:00 Oxygen Flow Rate 2 11/12/22 15:00 BMI result Body Mass Index 17.9 Appearing in no acute distress lung sounds are clear to auscultation heart regular rate rhythm, clear S1, S2 positive bowel sounds, abdomen is soft, nontender neuro patient is alert x3, no focal deficits Objective Data Active Medications Ascorbic Acid (Ascorbic Acid 250 Mg Tablet) 250 mg PO DAILY [facility] Last Admin: 11/17/22 09:28 Dose: 250 mg Documented By: SAUL Clonazepam (Clonazepam 0.5 Mg Tablet) 0.5 mg PO TID [facility] Last Admin: 11/17/22 09:28 Dose: 0.5 mg Documented By: SAUL Cyanocobalamin (Cyanocobalamin (Vitamin B-12) 500 Mcg Tablet) 500 mcg PO DAILY [facility] Last Admin: 11/17/22 09:28 Dose: 500 mcg Documented By: SAUL Ferrous Sulfate (Ferrous Sulfate 324 Mg Tablet.) 324 mg PO DAILY [facility] Last Admin: 11/17/22 09:29 Dose: 324 mg Documented By: SAUL Fluoxetine HCl (Fluoxetine Hcl 20 Mg Capsule) 20 mg PO DAILY [facility] Last Admin: 11/17/22 09:28 Dose: 20 mg Documented By: SAUL Fluticasone/Vilanterol (Fluticasone/Vilanterol 100/25 Blst.W.Dev) 1 puff INHALE RDAILY [facility] Last Admin: 11/17/22 08:17 Dose: 1 puff Documented By: CELINE Guaifenesin/Dextromethorphan (Guaifenesin Dm 100/10/5 Ml 5 Ml Syrup) 10 ml PO TID [facility] Last Admin: 11/17/22 09:29 Dose: 10 ml Documented By: SAUL Lamotrigine (Lamotrigine 25 Mg Tablet) 150 mg PO BID [facility] Last Admin: 11/17/22 09:28 Dose: 150 mg Documented By: SAUL Loperamide HCl (Loperamide Hcl 2 Mg Capsule) 4 mg PO Q6H PRN PRN Reason: Diarrhea Last Admin: 11/15/22 10:22 Dose: 4 mg Documented By: TIFFANY Loperamide HCl (Loperamide Hcl 2 Mg Capsule) 4 mg PO Q4H [facility] Last Admin: 11/17/22 09:32 Dose: 4 mg Documented By: SAUL Midodrine (Midodrine Hcl 5 Mg Tablet) 5 mg PO TID [facility] Last Admin: 11/17/22 09:29 Dose: 5 mg Documented By: SAUL Omeprazole (Omeprazole 40 Mg Capsule.Dr) 40 mg PO DAILY [facility] Last Admin: 11/17/22 09:29 Dose: 40 mg Documented By: SAUL Ondansetron HCl (Ondansetron Hcl 4 Mg/2 Ml Vial) 4 mg IVPUSH Q6H PRN PRN Reason: Nausea Last Admin: 11/15/22 09:02 Dose: 4 mg Documented By: TIFFANY Prednisone (Prednisone 10 Mg Tablet) 10 mg PO DAILY [facility] Stop: 11/18/22 09:01 Last Admin: 11/17/22 09:29 Dose: 10 mg Documented By: SAUL Thiamine HCl (Thiamine Hcl 100 Mg Tablet) 100 mg PO DAILY [facility] Last Admin: 11/17/22 09:29 Dose: 100 mg Documented By: SAUL Labs CBC & Chem 7: 11/02/22 06:51 11/12/22 06:05 Assessment and Plan (1) COVID-19: Status: Acute Plan 51yo F with anxiety, bipolar disorder, asthma, gastric bypass surgery, paroxysmal AF, chronic hypotension on midodrine, migraines, PTSD, and recurrent UTIs thought due to nephrolithiasis admitted to ICU 10/19/22 with septic shock with UTI/bacteremia from obstructing R ureteral stone with hydronephrosis started on norepi, underwent cystoscopy + R ureteral stent in [place] 10/19 blood and urine cultures grew Klebsiella sensitive to levofloxacin ICU course complicated by precipitous thrombocytopenia due to sepsis, then hypoxic respiratory failure due to cor pulmonale and pneumonia was on HFNC + NRB, then CPAP aggressively diuresed with furosemide found to have funguria question of secretory diarrhea treated with cholestyramine + octreotide now off levofloxacin + norepi stepped down to [facility] 10/30/22. Persistent diarrhea better with scheduled imodium Stool studies negative COVID-19 Diagnosed just prior to discharge no hypoxia Will be discharged to rehab after quarantine period, covid recheck 11/14/22 - still positive Acute hypoxic respiratory failure secondary to ARDS Resolved Acute asthma exacerbation with history of moderate persistent asthma wean steroids Continue DuoNebs Macrocytic anemia Status post 2 units of packed red blood cells Normal B12, folate and iron studies hypotension Chronic Continue midodrine Klebsiella UTI Status post Levaquin Paroxysmal atrial fibrillation Previously on anticoagulation Stopped due to normal Matteo Vasc score Candiduria completed 10 day course of fluconazole ELYSE Pre renal, septic ATN Resolved Mental health Continue home medications DVT prophylaxis with med compression Attending Dr. Parekh Full code Disposition plan for tx to SNF after 10 day quarantine. plan to go to [facility] 11/19 In my clinical judgment, the patient requires continued inpatient hospitalization for COVID-19 test positive on 11/08 awaiting placement to [facility]. Time Spent With Patient Time: Total time managing care of this patient today ____ minutes. Quality Stroke Does the patient have a stroke diagnosis?: No VTE Prior VTE?: No VTE Risk Level:: Medical - moderate - high VTE Device Contraindication: N/A - Device Ordered VTE Drug Contraindication: N/A - Med Ordered
--- NOTE | 2022-11-17 14:21 | MHC.CLN ---
F/U REVIEW OF WEIGHT HX SHOWS -19% WEIGHT LOSS SINCE ADMISSION. INTAKE VARIABLE, 25-100% DIET=REGULAR. ADDING ENSURE TID TO PROVIDE ADDITIONAL 1050 KCALS, 60 G PROTEIN. PERSISTENT DIARRHEA NOTED. SEE CLINICAL NUTRITION ASSESSMENT 11/17/22.
[2022-11-18] VITALS (8 sets, daily range): BP systolic 106–134; BP diastolic 64–86; PULSE 61–78; RESP 17–20; TEMP 36.2–37.1; O2SAT 95–97; BMI 17.5
[2022-11-18] MEDS: Loperamide HCl 2 MG CAPSULE 4 MG PO ×6 (00:43→19:51)
[2022-11-18] MEDS: Fluticasone/Vilanterol 100/25 BLST.W.DEV 1 PUFF INHALE (09:00)
--- NOTE | 2022-11-18 09:20 | P.PNIM_ITS ---
Subjective Subjective Date of Service: 11/18/22 Interval History: seen and examined this morning follow up for placement no overnight events, no abdominal pain still with some diarrhea, imodium helps Review of Systems Review of Systems: Yes all other systems are reviewed and are negative Constitutional Constitutional: Denies chills and Denies fever(s) Cardiovascular Cardiovascular: Denies chest pain, Denies palpitations and Denies dyspnea Respiratory Respiratory: Denies cough and Denies dyspnea Gastrointestinal Gastrointestinal: Denies abdominal pain, Denies nausea and Denies vomiting Endocrine Endocrine: Denies palpitations Physical Exam Vital Signs: Vital Signs: Last Vital Signs Temp 97.6 F 11/18/22 07:47 Pulse 78 11/18/22 08:45 Resp 20 11/18/22 08:45 BP 106/73 11/18/22 07:47 Pulse Ox 95 11/18/22 07:47 O2 Del Method 11/18/22 07:47 O2 Flow Rate 2 11/10/22 07:38 FiO2 45 10/29/22 04:00 Oxygen Flow Rate 2 11/12/22 15:00 BMI result Body Mass Index 17.5 Appearing in no acute distress lung sounds are clear to auscultation heart regular rate rhythm, clear S1, S2 positive bowel sounds, abdomen is soft, nontender neuro patient is alert x3, no focal deficits Objective Data Active Medications Ascorbic Acid (Ascorbic Acid 250 Mg Tablet) 250 mg PO DAILY [facility] Last Admin: 11/17/22 09:28 Dose: 250 mg Documented By: SAUL Clonazepam (Clonazepam 0.5 Mg Tablet) 0.5 mg PO TID [facility] Last Admin: 11/17/22 20:47 Dose: 0.5 mg Documented By: ANNALISE Cyanocobalamin (Cyanocobalamin (Vitamin B-12) 500 Mcg Tablet) 500 mcg PO DAILY [facility] Last Admin: 11/17/22 09:28 Dose: 500 mcg Documented By: SAUL Ferrous Sulfate (Ferrous Sulfate 324 Mg Tablet.) 324 mg PO DAILY [facility] Last Admin: 11/17/22 09:29 Dose: 324 mg Documented By: SAUL Fluoxetine HCl (Fluoxetine Hcl 20 Mg Capsule) 20 mg PO DAILY [facility] Last Admin: 11/17/22 09:28 Dose: 20 mg Documented By: SAUL Fluticasone/Vilanterol (Fluticasone/Vilanterol 100/25 Blst.W.Dev) 1 puff INHALE RDAILY [facility] Last Admin: 11/18/22 09:00 Dose: 1 puff Documented By: MARSHALL Guaifenesin/Dextromethorphan (Guaifenesin Dm 100/10/5 Ml 5 Ml Syrup) 10 ml PO TID [facility] Last Admin: 11/17/22 20:47 Dose: 10 ml Documented By: ANNALISE Lamotrigine (Lamotrigine 25 Mg Tablet) 150 mg PO BID [facility] Last Admin: 11/17/22 20:47 Dose: 150 mg Documented By: ANNALISE Loperamide HCl (Loperamide Hcl 2 Mg Capsule) 4 mg PO Q6H PRN PRN Reason: Diarrhea Last Admin: 11/15/22 10:22 Dose: 4 mg Documented By: TIFFANY Loperamide HCl (Loperamide Hcl 2 Mg Capsule) 4 mg PO Q4H [facility] Last Admin: 11/18/22 05:01 Dose: 4 mg Documented By: ANNALISE Midodrine (Midodrine Hcl 5 Mg Tablet) 5 mg PO TID [facility] Last Admin: 11/17/22 20:47 Dose: 5 mg Documented By: ANNALISE Omeprazole (Omeprazole 40 Mg Capsule.Dr) 40 mg PO DAILY [facility] Last Admin: 11/17/22 09:29 Dose: 40 mg Documented By: SAUL Ondansetron HCl (Ondansetron Hcl 4 Mg/2 Ml Vial) 4 mg IVPUSH Q6H PRN PRN Reason: Nausea Last Admin: 11/15/22 09:02 Dose: 4 mg Documented By: TIFFANY Thiamine HCl (Thiamine Hcl 100 Mg Tablet) 100 mg PO DAILY [facility] Last Admin: 11/17/22 09:29 Dose: 100 mg Documented By: SAUL Labs CBC & Chem 7: 11/02/22 06:51 11/12/22 06:05 Assessment and Plan (1) COVID-19: Status: Acute Plan 51yo F with anxiety, bipolar disorder, asthma, gastric bypass surgery, paroxysmal AF, chronic hypotension on midodrine, migraines, PTSD, and recurrent UTIs thought due to nephrolithiasis admitted to ICU 10/19/22 with septic shock with UTI/bacteremia from obstructing R ureteral stone with hydronephrosis started on norepi, underwent cystoscopy + R ureteral stent in [place] 10/19 blood and urine cultures grew Klebsiella sensitive to levofloxacin ICU course complicated by precipitous thrombocytopenia due to sepsis, then hypoxic respiratory failure due to cor pulmonale and pneumonia was on HFNC + NRB, then CPAP aggressively d iuresed with furosemide found to have funguria question of secretory diarrhea treated with cholestyramine + octreotide now off levofloxacin + norepi stepped down to [facility] 10/30/22. Persistent diarrhea better with scheduled imodium Stool studies negative COVID-19 Diagnosed just prior to discharge no hypoxia Will be discharged to rehab after quarantine period, recheck COVID 11/19/2022 Acute hypoxic respiratory failure secondary to ARDS Resolved Acute asthma exacerbation with history of moderate persistent asthma wean steroids Continue DuoNebs Macrocytic anemia Status post 2 units of packed red blood cells Normal B12, folate and iron studies hypotension Chronic Continue midodrine Klebsiella UTI Status post Levaquin Paroxysmal atrial fibrillation Previously on anticoagulation Stopped due to normal Matteo Vasc score Candiduria completed 10 day course of fluconazole ELYSE Pre renal, septic ATN Resolved Mental health Continue home medications DVT prophylaxis with med compression Attending Dr. Brannon Full code Disposition plan for tx to SNF after 10 day quarantine. plan to go [facility] 11/19 In my clinical judgment, the patient requires continued inpatient hos pitalization for COVID-19 test positive on 11/08 awaiting placement to STR. Time Spent With Patient Time: Total time managing care of this patient today ____ minutes. Quality Stroke Does the patient have a stroke diagnosis?: No VTE Prior VTE?: No VTE Risk Level:: Medical - moderate - high VTE Device Contraindication: N/A - Device Ordered VTE Drug Contraindication: N/A - Med Ordered
[2022-11-18] MEDS: lamoTRIgine 25 MG TABLET 150 MG PO ×2 (09:45→19:52)
[2022-11-18] MEDS: Midodrine HCl 5 MG TABLET PO ×3 (09:45→19:52)
[2022-11-18] MEDS: Cyanocobalamin (Vitamin B-12) 500 MCG TABLET PO (09:45)
[2022-11-18] MEDS: Thiamine HCL 100 MG TABLET PO (09:45)
[2022-11-18] MEDS: clonazePAM 0.5 MG TABLET PO ×2 (09:45→14:02)
[2022-11-18] MEDS: Ferrous Sulfate 324 MG TABLET.DR PO (09:45)
[2022-11-18] MEDS: predniSONE 10 MG TABLET PO (09:45)
[2022-11-18] MEDS: Omeprazole 40 MG CAPSULE.DR PO (09:45)
[2022-11-18] MEDS: guaiFENesin DM 100/10/5 ML 5 ML SYRUP 10 ML PO ×3 (09:45→19:52)
[2022-11-18] MEDS: FLUoxetine HCl 20 MG CAPSULE PO (09:45)
[2022-11-18] MEDS: Ascorbic Acid 250 MG TABLET PO (09:45)
[2022-11-18 10:01] LABS: Hematocrit 36.6 % (37.0-47.0); Hemoglobin 11.7 g/dl (12.0-16.0); Mean Corpuscular Hemoglobin 32.1 pg (27.0-33.0); Mean Corpuscular Volume 100.5 fL (80.0-98.0); Mean Platelet Volume 9.5 fL (9.4-12.3); Platelet Count 237 X10*3/uL (160-400); Red Blood Count 3.64 X10*6/uL (4.20-5.50); Red Cell Distribution Width 15.8 % (11.0-16.0); White Blood Count 9.3 X10*3/uL (4.8-10.8)
[2022-11-18 10:44] LABS: Anion Gap 11 (12-20); Blood Urea Nitrogen 7 mg/dL (9-16); Calcium 8.4 mg/dL (8.4-10.2); Carbon Dioxide 26 mmol/L (22-29); Chloride 103 mmol/L (96-108); Estimated Glomerular Filt Rate > 60; Glucose Random 72 mg/dL (60-115); Potassium 4.8 mmol/L (3.3-5.1); Sodium 135 mmol/L (135-145)
--- NOTE | 2022-11-18 12:51 | MHC.CM.PN ---
EMR REVIEWED PT WILL BE COVID RECOVERED 11/19 (11 DAYS) [facility] ACCEPTED PENDING AUTH. [facility] AUTH HAS PER [facility] AT [facility]. WILL NEED NEW PT EVAL TO SUBMIT, P.T. AWARE.
[2022-11-19] MEDS: Loperamide HCl 2 MG CAPSULE 4 MG PO ×4 (01:15→12:47)
[2022-11-19 03:37] VITALS: BP 124/74; PULSE 76; RESP 20; TEMP 36.8; O2SAT 96
[2022-11-19 06:00] VITALS: BMI 17.2
[2022-11-19 07:33] VITALS: BP 113/81; PULSE 88; RESP 20; TEMP 36.9; O2SAT 93
[2022-11-19] MEDS: Fluticasone/Vilanterol 100/25 BLST.W.DEV 1 PUFF INHALE (07:47)
[2022-11-19 07:49] VITALS: PULSE 64; RESP 18; O2SAT 97
[2022-11-19] MEDS: Ferrous Sulfate 324 MG TABLET.DR PO (08:55)
[2022-11-19] MEDS: lamoTRIgine 25 MG TABLET 150 MG PO (08:55)
[2022-11-19] MEDS: Cyanocobalamin (Vitamin B-12) 500 MCG TABLET PO (08:55)
[2022-11-19] MEDS: Ascorbic Acid 250 MG TABLET PO (08:55)
[2022-11-19] MEDS: Thiamine HCL 100 MG TABLET PO (08:55)
[2022-11-19] MEDS: guaiFENesin DM 100/10/5 ML 5 ML SYRUP 10 ML PO (08:55)
[2022-11-19] MEDS: Omeprazole 40 MG CAPSULE.DR PO (08:55)
[2022-11-19] MEDS: Midodrine HCl 5 MG TABLET PO (08:55)
[2022-11-19] MEDS: FLUoxetine HCl 20 MG CAPSULE PO (08:55)
--- NOTE | 2022-11-19 10:07 | P.DS_ITS ---
DS: Providers Provider Date of Service: 11/19/22 Date of admission: 10/18/22 23:32 Primary care physician: Eusebio Payton DO, MD Consults: 10/19/22 03:14 Consult to Urology Stat Consulting Provider: Jose Alberto Gomez Reason for consultation: Hydronephrosis with renal and ureteral calculus obstruction Has provider been notified: Yes 10/19/22 20:11 Consult to Wound Care Routine Consulting Provider: Jocy Garza Reason for consultation: appears to have stage 2 on inner aspect of left buttock, treated at [facility] 10/29/22 12:18 Consult to Infectious Diseases Routine Consulting Provider: Iona Garcia Reason for consultation: Leukocytosis, refractory hypotension Has provider been notified: Yes 10/31/22 08:56 Consult to Cardiology Routine Consulting Provider: Santiago Mcintyre Reason for consultation: R-sided HF,. ICU downgrade 11/01/22 08:29 Consult to Gastroenterology Routine Consulting Provider: Yamil Calvo Reason for consultation: persistent anemia s/p ICU course, FOBT + x2 Attending physician on discharge: Fidencio Brannon Discharging clinician: Claudia Palma DS: Diagnosis Discharge Diagnosis (1) COVID-19: Status: Acute DS: Summary Hospital Course Hospital Course: HP as per admitting provider Ms. Davalos is a 51 y.o. female with PMH of Afib, anxiety, asthma, bipolar disorder, bronchitis, complications from gastric bypass surgery, hypokalemia, chronic hypotension on midodrine, migraines, and PTSD. ?She has a MOLST that indicates a modified code status; she would like CPR but does not want intubation, dated 10/02/22. The patient was admitted to [facility] for rehab after a right femoral neck fracture with surgical repair on 10/02/2022. ?Since the surgery she has been using a wheelchair as she is hudson pposed to be nonweightbearing on the right leg.? Prior to her injury she was living alone in an apartment in [place] and ambulated with a rolling walker and help from a [employer]. ?She reports a history of multiple UTIs. She saw Dr. Willingham about a month ago and was told she had 3 small kidney stones. She missed her follow-up appointment due to her injury. She was seen here in our emergency room on 10/10/2022 and treated with Bactrim for a urinary tract infection.? At that time she was also noted to be hypokalemic. Yesterday evening, she was brought in by ambulance for hypotension, fatigue, and weakness. On arrival to the ED, the patient was awake and alert, oriented x 4. She stated that her blood pressure was 60/30 at the snf and that she had not urinated in over 6 hours. She is prescribed oxycodone, but has not taken that in several days. She stated she does not feel like herself, is cold, has chest pain, and is easily fatigued. SpO2 was 96% on room air, Heart rate 79, blood pressure 70/33, respiratory rate 18. Afebrile. Labs showed WBC 26.8, HGB 7.0, BUN/creat 41/1.6, Sodium 127, Potassium 3.2.? Lactic acid 3.7.? Tbili 2.4, AST 59, ALT 139, Alk Phos 208. COVID-19 and influenza tested negative.? U/A showed 21-50 WBC, largel LE, neg nitrite, 4+ bacti.?Stool occult blood was positive. CT/CT abdomen pelvis showed? a 9 x 4 x 4 mm obstructing proximal right ureteral calculus with hydronephrosis, atelectasis/infiltrate at the left lung base along with a small left pleural effusion,? an enlarged fatty liver, and a large stool burden in the colon. While in the ED, she was given 2 L of saline for fluid resuscitation, 2 units red blood cells, and 5 mg of midodrine. ?She remained hypotensive. ?A central line was placed and she was started on Levophed.? She was given an amp of D50 for a blood sugar of 61.?Dr. Gomez updated on urosepsis with obstructing stone with a? plan for 0800 OR .? 51yo F with anxiety, bipolar disorder, asthma, gastric bypass surgery, paroxysmal AF, chronic hypotension on midodrine, migraines, PTSD, and recurrent UTIs thought due to nephrolithiasis admitted to ICU 10/19/22 with septic shock with UTI/bacteremia from obstructing R ureteral stone with hydronephrosis started on norepi, underwent cystoscopy + R ureteral stent in [place] 10/19 blood and urine cultures grew Klebsiella sensitive to levofloxacin ICU course complicated by precipitous thrombocytopenia due to sepsis, then hypoxic respiratory failure due to cor pulmonale and pneumonia was on HFNC + NRB, then CPAP aggressively diuresed with furosemide found to have funguria question of secretory diarrhea treated with cholestyramine + octreotide now off levofloxacin + norepi stepped down to [facility] 10/30/22. Persistent diarrhea better with scheduled imodium Stool studies negative COVID-19 Diagnosed just prior to discharge no hypoxia Will be discharged to rehab after quarantine period Acute hypoxic respiratory failure secondary to ARDS Resolved Acute asthma exacerbation with history of moderate persistent asthma treated with steroids and duonebs Macrocytic anemia Status post 2 units of packed red blood cells Normal B12, folate and iron studies hypotension Chronic Continue midodrine Klebsiella UTI Status post Levaquin Paroxysmal atrial fibrillation Previously on anticoagulation Stopped due to normal Matteo Vasc score Candiduria completed 10 day course of fluconazole ELYSE Pre renal, septic ATN Resolved Mental health Continue home medications Time Spent with Patient Time attestation: Total time managing care of this patient today ____ minutes. Discharge coordination time: Greater than 30 minutes Quality: Safe Use of Opioids Does Pt have an Active Cancer Diagnosis on the Problem List?: No Quality: Stroke Does the patient have a stroke diagnosis?: No Physical Exam Vital Signs: Vital Signs: Last Vital Signs Temp 98.5 F 11/19/22 07:33 Pulse 64 11/19/22 07:49 Resp 18 11/19/22 07:49 BP 113/81 11/19/22 07:33 Pulse Ox 93 11/19/22 07:33 O2 Del Method 11/19/22 07:33 O2 Flow Rate 2 11/10/22 07:38 FiO2 45 10/29/22 04:00 Oxygen Flow Rate 2 11/12/22 15:00 BMI result Body Mass Index 17.2 Appearing in no acute distress head is normocephalic atraumatic eyes pupils are PERRLA sclera is anicteric mouth throat mucous membranes are intact and moist neck is supple no lymphadenopathy, no JVD noted lung sounds are clear to auscultation heart regular rate rhythm, clear S1, S2 positive bowel sounds, abdomen is soft, nontender neuro patient is alert x3, no focal deficits DS: Data Data Completed and Pending Labs on day of discharge: Laboratory Results - last 24 hr 11/18/22 09:45 Sodium 135 Potassium 4.8 Chloride 103 Carbon Dioxide 26 Anion Gap 11 L BUN 7 L Creatinine 0.47 L Estim Creat Clear Calc 87.0 Estimated GFR > 60 Random Glucose 72 Calcium 8.4 Discharge Plan Discharge Anticipated Discharge Date/Time: 11/19/22 10:03 Patient Disposition: Xfer [facility] Discharge Diagnosis: Acute hypoxic respiratory failure septic shock due to UTI status post right ureteral stent placement with subsequent removal and lithotripsy acute kidney injury acute on chronic macrocytic anemia right-sided heart failure due to ARDS chronic hypotension tayo in urine Referrals: [facility] [Outside] - 1 Week (SHORT TERM REHAB ) Eusebio Payton DO, MD [Primary Care Provider] - 1 Week Discharge Medications: New ipratropium-albuterol 0.5 mg-3 mg(2.5 mg base)/3 mL Solution For Nebulization 3 ml inhalation QID Qty: 90 0RF Continued lamotrigine 150 mg Tablet 150 mg PO BID acetaminophen 325 mg Tablet 650 mg PO Q6H PRN (Reason: Pain) sucralfate 100 mg/mL Suspension 10 ml PO QID Rx Instructions: swish in mouth and swallow; use after food/drink ondansetron HCl 4 mg Tablet 4 mg PO Q8H PRN (Reason: Nausea) clonazepam 1 mg Tablet 1 mg PO TID midodrine 5 mg Tablet 5 mg PO TID Rx Instructions: do not give last dose of day after 6PM or within 4 hrs of bedtime thiamine HCl (vitamin B1) 100 mg Tablet 100 mg PO DAILY omeprazole 40 mg Capsule,Delayed Release(Dr/Ec) 40 mg PO DAILY cyanocobalamin (vitamin B-12) 500 mcg Tablet 500 mcg PO DAILY ascorbic acid (vitamin C) 250 mg Tablet 250 mg PO DAILY fluoxetine 20 mg Tablet 20 mg PO DAILY fluticasone propion-salmeterol [Wixela Inhub] 500-50 mcg/dose Blister With Device 1 inh INHALATION BID calcium carbonate 500 mg calcium (1,250 mg) Tablet,Chewable 1,000 mg PO BID albuterol sulfate 90 mcg/actuation Hfa Aerosol Inhaler 2 puff INHALATION Q6H PRN (Reason: Wheezing) fluticasone propionate 50 mcg/actuation Gray,Suspension 1 spray INTRANASAL DAILY Rx Instructions: administer into each nostril cholecalciferol (vitamin D3) 1,250 mcg (50,000 unit) Tablet 1,250 mcg PO WE Discontinued topiramate 25 mg Tablet 25 mg PO DAILY topiramate 25 mg Tablet 75 mg PO BEDTIME olanzapine [Zyprexa] 2.5 mg Tablet 2.5 mg PO BEDTIME PRN (Reason: Anxiety) risperidone 2 mg Tablet 2 mg PO BEDTIME risperidone [Risperdal] 1 mg Tablet 1 mg PO DAILY Probiotic Formula (inulin) 1 billion-250 cell-mg Capsule 1 cap PO DAILY Xarelto 20 mg Tablet 20 mg PO DAILY@1700 Rx Instructions: must administer with evening meal Discharge Orders: Discharge Order (Routine); Ordered 11/19/22 Ordered By: Claudia Palma Diet: Advance to usual diet Activity on Discharge: As tolerated Stand Alone Forms: Patient Portal Discharge page Care Plan Goals: paroxysmal atrial fibrillation does not need anticoagulation sepsis/bacteremia resolved finished course of antibiotics bipolar disorder current to new current medication follow-up with Psychiatry no acute issues electrolyte abnormalities resolved asthma exacerbation resolved Health Concerns: asthma/bipolar disorder take all medications as prescribed Plan of Treatment: outpatient follow-up with primary care physician and Psychiatry Assessment: see discharge summary
--- NOTE | 2022-11-19 10:10 | MHC.CM.PN ---
DP: PT HAS BEEN MEDICALLY CLEARED FOR DC TO STR AT [facility]. RN AWARE. CENTER AWARE. TRANSPORT BOOKED FOR 1 PM WITH [facility].
[2022-11-19 11:39] VITALS: BP 106/71; PULSE 87; RESP 20; TEMP 36.6; O2SAT 98
== END 2022-11-19 13:16 | disposition skilled nursing facility (03) | DRG 853 ==
LOC: HO.ED 23:22 → HO.EDOVER 23:53 → HO.ICU 10-19 00:50 → HO.IMC 10-30 19:04
PROVIDERS: Anesthesiology; Family Medicine; Hospitalist; Internal Medicine; Internal Medicine Cardiovascular Disease; Internal Medicine Pulmonary Disease; Nurse Practitioner Family; Physician Assistant; Physician Assistant Medical; Registered Nurse Community Health; Urology; Admitting Provider Nurse Practitioner Family; Emergency Provider Emergency Medicine; PCP Internal Medicine; Visit Provider Nurse Practitioner Acute Care
PROC: 0T768DZ Dilation of Right Ureter with Intraluminal Device, Via Natural or Artificial Opening Endoscopic (ICD-10-PCS; principal; 2022-10-19 11:30)
PROC: BT1D1ZZ Fluoroscopy of Right Kidney, Ureter and Bladder using Low Osmolar Contrast (ICD-10-PCS; principal; 2022-11-07 17:20)
DX: A41.50 Gram-negative sepsis, unspecified (principal); J80 Acute respiratory distress syndrome; R65.21 Severe sepsis with septic shock; U07.1 COVID-19; N17.0 Acute kidney failure with tubular necrosis; K29.71 Gastritis, unspecified, with bleeding; N13.6 Pyonephrosis; E87.1 Hypo-osmolality and hyponatremia; D62 Acute posthemorrhagic anemia; B37.49 Other urogenital candidiasis; E87.3 Alkalosis; K91.2 Postsurgical malabsorption, not elsewhere classified; J45.41 Moderate persistent asthma with (acute) exacerbation; D68.32 Hemorrhagic disorder due to extrinsic circulating anticoagulants; F31.9 Bipolar disorder, unspecified; E87.6 Hypokalemia; F43.10 Post-traumatic stress disorder, unspecified; K59.00 Constipation, unspecified; I48.0 Paroxysmal atrial fibrillation; E16.2 Hypoglycemia, unspecified; R31.9 Hematuria, unspecified; E80.6 Other disorders of bilirubin metabolism; I27.29 Other secondary pulmonary hypertension; I50.811 Acute right heart failure; T45.515A Adverse effect of anticoagulants, initial encounter; E88.89 Other specified metabolic disorders; D69.6 Thrombocytopenia, unspecified; D53.9 Nutritional anemia, unspecified; I95.89 Other hypotension; B96.1 Klebsiella pneumoniae [K. pneumoniae] as the cause of diseases classified elsewhere; Z98.84 Bariatric surgery status; Z87.891 Personal history of nicotine dependence; Z87.440 Personal history of urinary (tract) infections; Z88.0 Allergy status to penicillin; Z88.1 Allergy status to other antibiotic agents; Z79.01 Long term (current) use of anticoagulants; Z79.51 Long term (current) use of inhaled steroids; Z79.899 Other long term (current) drug therapy
CPT/HCPCS: 0241U; 36415; 71045; 71046; 71250; 71275; 74176; 76604; 76700; 80048; 80053; 80076; 80307; 81001; 82040; 82140; 82272; 82607; 82728; 82746; 82803; 82947; 83540; 83605; 83615; 83690; 83735; 83880; 84100; 84145; 84484; 85007; 85014; 85018; 85025; 85027; 85045; 85384; 85610; 86850; 86900; 86901; 86923; 87040; 87077; 87086; 87088; 87186; 87205; 87493; 87507; 87635; 89055; 92526; 92610; 93005; 93306; 93308; 93970; 94640; 94660; 97110; 97116; 97163; 97530; 99285; C1758; C1769; C2617; J1100; J1160; J1170; J1200; J1450; J1580; J1885; J1940; J1956; J2185; J2250; J2354; J2405; J2543; J2920; J2930; J3010; J3370; J3475; P9016; P9047; Q9957; Q9967